=== PATIENT | female | born 1995 | race African-American/Black ===

== ENCOUNTER 2022-04-16 12:52 | Emergency (ER) | payer MEDICAID, SELFPAY ==
[2022-04-16 13:31] VITALS: BP 116/77; PULSE 88; RESP 18; TEMP 36.2; O2SAT 100; BMI 33.7
--- NOTE | 2022-04-16 14:42 | CRLHL7_ITS ---
For Patients: As a result of the Century Cures Act, medical imaging exams and procedure reports are released immediately into your electronic medical record. You may view this report before your referring provider. If you have questions, please contact your health care provider. INDICATION: Early cramping and bleeding. TECHNIQUE: Ultrasound OB pelvis transvaginal. Real-time zambrano-scale imaging of the pelvis was performed. COMPARISON: None. FINDINGS: There is a single intrauterine gestation. The embryo demonstrates a regular cardiac rate measuring 120 beats per minute. The embryo`s crown rump length measurement of 0.5 cm corresponds to a gestational age of 6 weeks 1 day with a sonographic due date of December 09, 2022. There is a normal appearing yolk sac. There are no gross abnormalities noted within the embryo at this early state of development. The placenta has not yet developed. There is no sign of perigestational hemorrhage. Right ovary was not visualized. Left ovary is normal with a corpus luteum. There are no suspicious fluid collections noted in the cul-de-sac. IMPRESSION: Single viable intrauterine with an estimated ultrasound age of 6 weeks 1 day. No abnormalities seen. Dictated by Prasad Chinchilla MD @ 04/16/2022 4:14:27 PM (Electronically Signed)
--- NOTE | 2022-04-16 14:42 | ED_ITS ---
HPI - General Adult General Chief complaint: Abdominal Pain Stated complaint: 7 Weeks ,cramping Time Seen by Provider: 04/16/22 14:37 History of Present Illness HPI narrative: This 26-year-old female comes in reporting that she is almost 8 weeks and has been having some cramping in her lower abdomen over the past couple weeks. She states that she has had a little bit of vaginal spotting also. She is wondering if the baby in the is doing okay. She states that she had a seizure yesterday and was taken by ambulance to be evaluated. She does have a history of seizure but it was during her previous and related to eclampsia. She arrives here with normal vital signs and normal blood pressure. Related Data Home Medications Medication Instructions Recorded Confirmed insulin NPH isoph U-100 human 100 unit subcut 04/16/22 unit/mL subcutaneous suspension (Humulin N NPH U-100 Insulin (isophane susp)) Allergies Allergy/AdvReac Type Severity Reaction Status Date / Time No Known Drug Allergies Allergy Verified 04/16/22 13:34 Review of Systems Status of ROS: Reports: 10 or more systems reviewed and unremarkable except as noted in History and below Narrative: Constitutional: No fevers, no weight gain or loss. Eyes: No discharge. No vision changes. HENT: No congestion, no sore throat, no ear pain. Cardiovascular: No chest pain, no palpitations. Respiratory: No shortness of breath, no wheezes, no cough. Gastrointestinal: No vomiting, no diarrhea. Crampy abdominal pain in the lower abdomen as described above. Genitourinary: No dysuria, no hematuria. Musculoskeletal: Normal range of motion. Skin: No rashes, no pruritis. Neurological: No dizziness, weakness, sensory change, speech change. Endo/Heme/Allergies: No bruising or bleeding. No polydipsia. Pysch: no suicidality, no anxiety, no insomnia. All other systems reviewed and are negative. [facility] Medical History (Updated 04/16/22 @ 16:07 by Enrico Valentine MD) Diabetes mellitus type 1 Surgical History (Updated 04/16/22 @ 15:04 by Allison Swanson RN) History of delivery Social History Smoking Status: Former smoker How often do you have a drink containing alcohol: never AUDIT-C Alcohol total score: 0 Non-prescribed substance use: denies use Exam Narrative: Exam Narrative: Constitutional: Well-developed, well-nourished, no acute distress. HEENT: Normocephalic, atraumatic. Neck: Normal range of motion. Nontender. Supple. Heart: Regular. No murmurs. Normal rate. Intact distal pulses. Lungs: Clear to auscultation. No chest discomfort. No wheezes, rhonchi, or rales. Abdomen: Normal bowel sounds. Mild tenderness in the lower abdomen. No rebound tenderness. Genitalia: Deferred. Back: No midline tenderness. Normal range of motion. Extremities: Normal range of motion. No injury. Skin: Intact. No rash. Warm. No erythema or pallor. Neurologic: No altered sensation. No weakness. Alert and oriented. Psychiatric: No suicidality. No anxiety or depression. No insomnia. Nursing notes and vitals signs are reviewed. Const: Vital Signs, click to edit/add: Vital Signs - 24 hr 04/16/22 13:31 Temperature 97.2 F L Pulse Rate [Right Pulse Oximeter] 88 Respiratory Rate 18 Blood Pressure [Ri ght Upper Arm] 116/77 Pulse Oximetry 100 Oxygen Delivery Me thod Room Air Course Vital Signs Vital signs: Initial Vital Signs Temperature 97.2 F L 04/16/22 13:31 Temperature Source Temporal Artery Scan 04/16/22 13:31 Pulse Rate 88 04/16/22 13:31 Respiratory Rate 18 04/16/22 13:31 Blood Pressure 116/77 04/16/22 13:31 Blood Pressure Mean 90 04/16/22 13:31 Blood Pressure Position Sitting 04/16/22 13:31 Pulse Oximetry 100 04/16/22 13:31 Oxygen Delivery Method 04/16/22 13:31 Vital Signs Temperature 97.2 F L 04/16/22 13:31 Pulse Rate 88 04/16/22 13:31 Respiratory Rate 18 04/16/22 13:31 Blood Pressure 116/77 04/16/22 13:31 Pulse Oximetry 100 04/16/22 13:31 Oxygen Delivery Method 04/16/22 13:31 Temperature 97.2 F L 04/16/22 13:31 Pulse Rate 88 04/16/22 13:31 Respiratory Rate 18 04/16/22 13:31 Blood Pressure 116/77 04/16/22 13:31 Pulse Oximetry 100 04/16/22 13:31 Oxygen Delivery Method 04/16/22 13:31 Medical Decision Making MDM Narrative Medical decision making narrative: This patient comes in concerned about her because of some abdominal pain in the lower abdomen. She states she is having some very light spotting but no obvious bleeding. I did discuss checking a quantitative beta hCG level and doing a pelvic ultrasound. She agreed to the ultrasound which returns with reassuring findings. There is a left corpus luteum that may be causing her pain. 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 There is a left corpus luteum that may be causing the patient's discomfort. Discharge Plan Discharge Clinical Impression: , Abdominal pain Condition: Stable Additional Instructions: Continue current plans. Follow up with primary physician or return if worsening. Prescriptions: No Action Humulin N NPH U-100 Insulin 100 unit/mL suspension SUBCUT Label Comments: INJECT 12 UNITS SUBCUTANEOUS BEFORE BEDTIME Follow Up/Referrals: Traci Rubi DO [Primary Care Provider] - Stand Alone Forms: [employer] Info Instructions
== END 2022-04-16 16:11 | disposition home or self-care (01) ==
PROVIDERS: Emergency Provider Emergency Medicine Emergency Medical Services; PCP Family Medicine
DX: O99.891 Other specified diseases and conditions complicating pregnancy (principal); R10.30 Lower abdominal pain, unspecified; Z3A.01 Less than 8 weeks gestation of pregnancy
CPT/HCPCS: 76817; 99283; 99284

== ENCOUNTER 2022-06-20 10:16 | Emergency (ER) | payer MEDICAID, SELFPAY ==
[2022-06-20 10:29] VITALS: BP 105/73; PULSE 98; RESP 20; TEMP 36.4; O2SAT 99; BMI 31.9
--- NOTE | 2022-06-20 10:58 | CRLHL7_ITS ---
For Patients: As a result of the Century Cures Act, medical imaging exams and procedure reports are released immediately into your electronic medical record. You may view this report before your referring provider. If you have questions, please contact your health care provider. INDICATION: Sixteen weeks with cramping. TECHNIQUE: Ultrasound OB pelvis transabdominal. Real-time zambrano-scale imaging of the pelvis was performed. COMPARISON: None. FINDINGS: There is a single intrauterine gestation. heart activity is present at 152 beats per minute. Fetus is in a transverse presentation. Placenta is posterior. No abnormality evident. IMPRESSION: Single viable intrauterine . No abnormalities seen. Dictated by Prasad Chinchilla MD @ 06/20/2022 1:29:30 PM (Electronically Signed)
--- NOTE | 2022-06-20 11:11 | ED.GENADULT ---
HPI - General Adult General Date Seen: 06/20/22 Chief complaint: Vaginal Bleeding Stated complaint: stuffy nose, cold,cramping, 16 weeks Time Seen by Provider: 06/20/22 10:39 Source: patient History of Present Illness HPI narrative: Patient is a 26-year-old here for evaluation of some cramping and spotting since last night as well as cold symptoms which started 2 days ago. She believes she has had a fever although she does not have a thermometer. She has had congestion, cough, runny nose. Wants to rule out COVID. She says she is vaccinated for COVID. She is here with her 9-month-old, does have a history of preeclampsia, uncontrolled diabetes, now on insulin. She is managed by high school academic coach at [facility]. She also has a history of low iron and was hoping to get that checked as well. She is unsure of her blood type. She denies trauma to her abdomen. She was not sure whether she was still having any spotting today. She requests an ultrasound to check the baby. Denies any urinary symptoms. Mild crampy abdominal pain. Denies history of cerclage. Second was born at 35 weeks. Related Data Home Medications Medication Instructions Recorded Confirmed insulin NPH isoph U-100 human 100 unit subcut 04/16/22 unit/mL subcutaneous suspension (Humulin N NPH U-100 Insulin (isophane susp)) Allergies Allergy/AdvReac Type Severity Reaction Status Date / Time No Known Drug Allergies Allergy Verified 06/20/22 10:29 Review of Systems Status of ROS: Reports: 10 or more systems reviewed and unremarkable except as noted in History and below [facility] Medical History Diabetes mellitus type 1 History of pre-eclampsia History of delivery Obesity Surgical History History of delivery Social History Smoking Status: Never smoker Do you use any of these nicotine containing products: None How often do you have a drink containing alcohol: never AUDIT-C Alcohol total score: 0 Non-prescribed substance use: denies use service: No Exam Narrative: Exam Narrative: Vital signs as noted above. In general, an alert, well-appearing patient. Head: Normocephalic, atraumatic. Eyes: Pupils are equal reactive. Extraocular movements are full. Conjunctivae are normal. ENT: Mucous membranes are moist. Throat is normal. Nares congested Neck: Supple without lymphadenopathy. No stridor. Heart: Regular rate and rhythm. No murmur or rub. Lungs: Clear bilaterally. No increased work of breathing, crackles or wheezes. Abdomen: Soft and nondistended. Mild diffuse tenderness, no rebound guarding or rigidity. Extremities: Well perfused. No edema. No calf tenderness. Pulses intact. Neurologic: Patient is alert and oriented to person and place. Speech is fluent. Face is symmetric. Moves all extremities equally. Affect: Normal. Skin: Warm and dry. Well perfused. Const: Vital Signs, click to edit/add: Vital Signs - 24 hr 06/20/22 10:29 Temperature 97.6 F Pulse Rate [Pulse Oximeter] 98 Respiratory Rate 20 Blood Pressure [Ri ght Upper Arm] 105/73 Pulse Oximetry 99 Oxygen Delivery Me thod Room Air Documenting provider has reviewed patient's vital signs: yes Course Course Hospital Course: Will go ahead and order an OB ultrasound. I reviewed her records and she is O-positive. I do not think additional blood work is necessary given that she is reporting mild spotting without significant hemorrhage. Vital signs are normal. Blood pressure is 105/73. Abdominal exam is benign aside from mild tenderness. Discussed with her that I think iron studies should be followed by her Ob. We will go ahead and get a COVID test. Lungs are clear, O2 sats are normal. I do not suspect pneumonia and do not think imaging is needed today. COVID test was negative, as was influenza and RSV. She had an ultrasound, note that she did ask the sonography for about gender of the baby. Ultrasound read by Radiology as showing well-appearing fetus, heart rate 152, no abnormalities. Patient asked to leave after the ultrasound and COVID test were resulted, she left prior to formal discharge instructions, or further discussion on my part with her. 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 Vital Signs Vital signs: Initial Vital Signs Temperature 97.6 F 06/20/22 10:29 Temperature Source Temporal Artery Scan 06/20/22 10:29 Pulse Rate 98 06/20/22 10:29 Pulse Rhythm 06/20/22 10:29 Respiratory Rate 20 06/20/22 10:29 Blood Pressure 105/73 06/20/22 10:29 Blood Pressure Mean 83 06/20/22 10:29 Blood Pressure Position Supine 06/20/22 10:29 Pulse Oximetry 99 06/20/22 10:29 Oxygen Delivery Method 06/20/22 10:29 Vital Signs Temperature 97.6 F 06/20/22 10:29 Pulse Rate 98 06/20/22 10:29 Respiratory Rate 20 06/20/22 10:29 Blood Pressure 105/73 06/20/22 10:29 Pulse Oximetry 99 06/20/22 10:29 Oxygen Delivery Method 06/20/22 10:29 Temperature 97.6 F 06/20/22 10:29 Pulse Rate 98 06/20/22 10:29 Respiratory Rate 20 06/20/22 10:29 Blood Pressure 105/73 06/20/22 10:29 Pulse Oximetry 99 06/20/22 10:29 Oxygen Delivery Method 06/20/22 10:29 Medical Decision Making Lab Data Labs: Lab Results 06/20/22 06/20/22 Range/Units 11:15 11: WBC 8.16 (4.50-11.00) K/uL RBC 4.54 (4.00-5.20) m/uL Hgb 10.2 L (12.0-16.0) gm/dL Hct 33.1 (33.0-51.0) % MCV 73 L (80-100) fL MCH 23 L (26-34) pg MCHC 31 L (32-36) gm/dL RDW Coeff of Liat 19.8 H (11.5-15.5) % Plt Count 300 (140-440) K/uL Neut % (Auto) 70.0 (42.0-72.0) % Lymph % (Auto) 21.6 (20-44) % Barren % (Auto) 7.6 (0.0-11.0) % Eos % (Auto) 0.1 (0.0-7.0) % Baso % (Auto) 0.2 (0.0-3.0) % Neut # (Auto) 5.71 (1.7-7.0) K/uL Lymph # (Auto) 1.76 (0.90-2.90) K/uL Barren # (Auto) 0.60 (0.00-0.90) K/UL Eos # (Auto) 0.01 (0.00-0.50) K/uL Baso # (Auto) 0.02 (0.00-0.30) K/uL Abs Immat Gran (auto) 0.04 (0.00-0.30) K/uL Imm/Tot Granulo (auto) 0.5 % Diff Slide Review Acceptable Review (Acceptable) SARS-CoV-2 (PCR) Negative SARS-CoV-2 (Negative) Influenza Type A (PCR) Negative PCR FLU A (Negative) Influenza Type B (PCR) Negative PCR FLU B (Negative) RSV (PCR) Negative PCR RSV (Negative) Discharge Plan Discharge Patient Disposition: Elopement
[2022-06-20 11:37] LABS: Basophils Absolute Auto 0.02 K/uL (0.00-0.30); Basophils Percent Auto 0.2 % (0.0-3.0); Eosinophils Absolute Auto 0.01 K/uL (0.00-0.50); Eosinophils Percent Auto 0.1 % (0.0-7.0); Hematocrit 33.1 % (33.0-51.0); Hemoglobin* 10.2 gm/dL (12.0-16.0); Immature Granulocytes Abs Auto 0.04 K/uL (0.00-0.30); Immature Granulocytes Pct Auto 0.5 %; Lymphocytes Absolute Auto 1.76 K/uL (0.90-2.90); Lymphocytes Percent Auto 21.6 % (20-44); Mean Corpuscular HGB Conc 31 gm/dL (32-36); Mean Corpuscular Hemoglobin 23 pg (26-34); Mean Corpuscular Volume 73 fL (80-100); Monocytes Percent Auto 7.6 % (0.0-11.0); Neutrophils Absolute Auto 5.71 K/uL (1.7-7.0); Platelet Count* 300 K/uL (140-440); RDW Coefficient of Variation % 19.8 % (11.5-15.5); Red Blood Count 4.54 m/uL (4.00-5.20); White Blood Count* 8.16 K/uL (4.50-11.00)
[2022-06-20 11:58] LABS: PCR FLU A Negative PCR FLU A (Negative); PCR FLU B Negative PCR FLU B (Negative); PCR RSV Negative PCR RSV (Negative)
[2022-06-20 11:58] LABS: Slide Review Reflex Yes
[2022-06-20 12:08] LABS: SARS PCR* Negative SARS-CoV-2 (Negative)
[2022-06-20 13:20] LABS: Slide Review Acceptable Review (Acceptable)
--- NOTE | 2022-06-20 13:45 | PC.NURSE ---
pt asking to leave, Dr Bolivar aware and pt may leave and follow up with OB, pt aware results within normal limits
== END 2022-06-20 13:45 | disposition left against medical advice (07) ==
PROVIDERS: Emergency Provider Emergency Medicine; PCP Family Medicine
DX: O26.859 Spotting complicating pregnancy, unspecified trimester (principal); R05.9 Cough, unspecified; R09.89 Other specified symptoms and signs involving the circulatory and respiratory systems
CPT/HCPCS: 36415; 76815; 85025; 87502; 87634; 87635; 99283; 99284

== ENCOUNTER 2022-07-12 20:13 | Emergency (ER) | payer MEDICAID, SELFPAY ==
--- OUTSIDE RECORDS SUMMARY | 2022-07-12 20:18 | XMS_ITS | Encounter Summary ---
:1995 Author Organization [facility] Address [address] [place] [address] Care Team Providers Name Role Phone Unavailable Primary Care Provider Unavailable Reason for Visit Reason Comments Diabetes Encounter Details Date Type Department Care Team Description 05/16/2021 Office Visit Antonella Pimentel Type 2 diabe racquel [facility] [place]rinivasan [place] [address] , [place] [address] [address] trimester [phone] [place] [address] Social History Tobacco Use Types Packs/Day Years Used Date Smoking Tobacco: Never Alcohol Use Standard Drinks/Week Comments Not Currently 0 (1 standard drink = 0.6 oz pure alcoho l) Financial Resource Strain Answer Date Recorded How hard is it for you to pay for the very basics like Not h monisha at all 04/11/2021 food, housing, medical care, and heating? Food Insecurity Answer Date Recorded Within the past 12 months, you worried that your food would Never true 04/11/2021 run out before you got money to buy more. Within the past 12 months, the food you bought just didn't N ever true 04/11/2021 last and you didn't have money to get more. Transportation Needs Answer Date Recorded In the past 12 months, has lack of transportation kept you f rom No 04/11/2021 medical appointments or from getting medications? In the past 12 months, has lack of transportation kept you f rom No 04/11/2021 meetings, work, or getting things needed for daily living? Sex Assigned at Date Recorded Not on file documented as of this encounter Patient Instructions Patient InstructionsSpAntonella quiroga RN, CDE - 05/16/2021 12:00 PM CDT Perez Rasmussen, It was a pleasure to meet with you today for your follow up visit: Please try to check your blood glucose four times a day: 1) When wake up (Target is between 60-94 mg/dl) 2) Check 1 hour from the start of each of your meals. (Target is less than 140 mg/dL) If check at 2 hours from the start of meals (Target is less than 120 mg/dL) Follow up Appt: 05/28/21 at 3:15 Calling the [facility] If you have any questions or concerns about your diabetes care plan, or simply want to speak to staff development educator, call [phone] from 8:00 am - 4:30 pm, Friday - Friday. Please consider calling if you have many blood sugars over 200 or if you have 2 blood sugars less than 70 in 1 week. You will have to leave a voice message with the answering machine, or you will be connected with an [facility] frontline staff member. At this time you can leave your message and make a request to speak with your staff development educator. If are having an urgent question related to diabetes and need assistance after hours, please call [phone]. PLEASE CALL [facility] WITH YOUR BLOOD GLUCOSE READINGS TODAY!! Thanks! ELVIS Berman, [facility] [place] documented in this encounter Progress Notes Antonella Teixeira RN, CDE - 05/16/2021 12:00 PM CDT Subjective: Visit #3 Type 2 and Valery Scott is seen for scheduled in-clinic visit for instruction on how to mix and administer two types of insulin (the Humulin N and Humulin R) using one syringe. Patient is accompanied by her spouse to this visit. Patient's spouse has been assisting her with giving her injections. Patient's spouse seems very clear about patient's insulin doses and how to administer the insulins, and that he had already did some reading on line as to how to mix two type os insulin using one syringe. Discussed with patient the importance of her having a clear understanding of her insulin doses and how to administer/mix two kinds of insulin using a single syringe, as her may not always be available to give her insulin injections. Patient did struggle with how to read the units on the syringe at start of this visit. Is concerned about seeing small dot of blood on her skin after insulin injections sometimes. Current Diabetes Medications: Insulin: Humulin N 22 units in the AM and 10 units in the PM Humulin R 10 units in the AM and 8 units if the PM Objective: Gestational age: 16 weeks, 3 days per patient Wt Readings from Last 3 Encounters: No data found for Wt Reviewed recent glucose results: Patient did not bring her glucose meter or any blood glucose data with her today. Assessment and Plan: Plan: Entirety of visit was spent with hands-on teaching. Initially worked with this patient on how to read the units on the 100 ml syringe, counting two units for each space marking on the syringe. This property underwriter had patient practice drawing up air for the multiple sample doses provided by this property underwriter for teaching purposes, which patient was eventually able to reach good understanding of. Demonstrated for patient and her spouse how to administer two different insulins (vials) using one syringe. Provided patient and her spouse with the written instructions on how to administer two kinds of insulin using a single syringe to use as a reference during visit today, and for them to take hometo use as needed as well. Patient's spouse was able to return demonstrate how to administer insulin from two vials, the Humulin N and Humulin R using a single syringe appropriately without any difficulty. However, did end up having to spend majority of remainder of visit with teaching patient how to administer two kinds of insulin from vials using a single syringe. Patient was able to grasp concepts of each step of this process, and eventually required only minimal prompting. Patient also did better with drawing up the appropriate doses once this property underwriter wrote down the morning and evening doses on separate sticky notes, including units of the Humulin R, units of Humulin N and the total number of unitswhen adding both of these doses together in one syringe. Encouraged patient's spouse to be there to supervise with administering her insulin at least initially until she is more comfortable with doing so. Encouraged patient's spouse to update notes including number of units for each type of insulin for the morning and evening with total units to be drawn up in the single syringe for morning and evening, each time after insulin doses are adjusted or changed. Reviewed with patient proper storage of insulin and how long each vial is effective for from date offirst use and the need to discard and begin use of a new vial if vial has been opened past the effective date. Reviewed insulin injection sites and reason for holding syringe in place for 10 seconds to allow forbetter absorption of the insulin. Recommended that for self injection that she use the abdomen or upper outer thighs. Discussed how can sometimes see a small amount of blood or bruising if accidentallyhit a capillary when administering the insulin. Was not able to make any adjustments in this patient's insulin doses today, as did not have any blood glucose data available. Reiterated to patient the importance of good management of glucose levels during , especially so early on in the . Reviewed with patient when call is warranted to [facility] or Endocrinology, if seeing 2 or more elevated readings in a 3 day period of time at the same time of day, and that insulin doses can be adjusted every couple of days as needed. Reviewed with patient the blood glucose targets and recommended that she check her blood glucose levels four times daily. INSTRUCTED THIS PATIENT TO CONTACT [facility] LATER TODAY BY PHONE WITH HER BLOOD GLUCOSE READINGS SO THAT COULD BE PROVIDED WITH ANY NECESSARY ADJUSTMENTS IN HER INSULIN DOSES. Instructed her to be sure to have her blood glucose data available at all of her appointments with Endo or [facility]. Goals: Date: Category: Goals: Progression: 04/11/2021 Monitoring Diabetes Check blood sugar QID Not On Track 04/20/2021 Taking Medication Take insulin as prescribed Not On Track Positive reinforcement for managing her blood glucose levels during this . At next visit, will need to review the visit 3 topics from the Gestation Diabetes BASICS curriculum. Glucose Monitoring plan: Patient will continue testing blood glucose levels four times per day as instructed Food Plan: Continue healthy eating for someone with Type 2 diabetes who is Patient will manage Type 2 diabetes during with insulin regimen noted above, diet, and exercise. Follow up: 05/28/21 Patient instructed to schedule follow up visits with Endocrinology as well. This visit was conducted as a: Office Visit Time spent with patient: 60 minutes Education content taught can be found in the diabetes education smartform documented in this encounter Plan of Treatment Not on filedocumented as of this encounter Visit Diagnoses Diagnosis Type 2 diabetes mellitus in , f irst trimester documented in this encounter
--- OUTSIDE RECORDS SUMMARY | 2022-07-12 20:18 | XMS_ITS | Encounter Summary ---
:1995 Author Organization [facility] Address [address] [place] [address] Care Team Providers Name Role Phone Unavailable Primary Care Provider Unavailable Reason for Visit Reason Comments Refill HUMULIN N 100 UNIT/ML inject ion [Pharmacy Med Name: HUMULIN N INSULIN ([id number])] Encounter Details Date Type Department Care Team Description 05/27/2022 Refill [facility] 3800 Jacoby Dawson PA-C Refill (HUMULIN N 100 Endocrinology [address] UNIT/ML injection [address] [Pharmacy Med Name: [address] [place] [address] ([id number])]) [id number] [phone] Social History Tobacco Use Types Packs/Day Years [...] on file documented as of this encounter Nursing Notes Mary Bruno, RN - 05/28/2022 9:33 AM CDT Requested Prescriptions Signed Prescriptions Disp Refills insulin isophane (HUMULIN N) 100 UNIT/ML injection 15 mL 4 Sig: TAKE 28 UNITS 20-30 MINUTES BEFORE BREAKFAST AND 18 UNITS 20-30 MINUTES BEFORE EVENING MEAL Authorizing Provider: JACOBY DASWON Ordering User: MARY BRUNO Filled per RN protocol. Interface, Out Surescripts Prov Query - 05/27/2022 5:52 PM CDT HUMULIN N 100 UNIT/ML injection [Pharmacy Med Name: HUMULIN N INSULIN ([id number])] Miscellaneous-Diabetes -> The requested medication was previously set to Historical. -> Unable to determine if sig has changed, review required. -> HBA1C was not found within the last 5 years. Last qualifying visit: 09/27/2021 (in P3800 ENDOCRINOLOGY) Next scheduled visit: None Last ordered by TREVOR FORD H: 08/28/2021 (272 days ago as Historical on 08/28/2021 by TREVOR FORD), Sig: take 28 units 20-30 minutes before breakfast and 22 units 20-30 minutes before evening meal. (changed) HBA1C: Not found [employer] Embedded Refills, Reference: [id number], 05/27/2022 5:52:40 PM CDT, Pool: ENDO PN REFILL ([id number]) documented in this encounter Plan of Treatment Not on filedocumented as of this encounter Visit Diagnoses Diagnosis Pre-existing type 2 diabetes mellitus du ring in third trimester documented in this encounter
--- OUTSIDE RECORDS SUMMARY | 2022-07-12 20:18 | XMS_ITS | Clinical Summary ---
:1995 [facility] Address [address], [place] [address] Care Team Providers Name Role Phone Unavailable Primary Care Provider Unavailable Source Comments You are receiving this document as you are listed as the primary care provider,follow-up provider, or the patient has been referred to you for consultation.This is in compliance with the Medicare and Medicaid EHR Incentive Program,which states Providers who transition their patient to another setting of careor provider of care or refers their patient to another provider of care shouldprovide summarycare record for each transition of care or referral. [facility] Allergies No known active allergies Medications Medication Sig Dispensed Refills Start Date End Date Status [employer] (BD Use as directed 1 Each 04/11/2021 Active [employer])Indication s: Pre-existing type 2 diabetes mellitus during in second trimester insulin Use new syringe for 100 Each 6 05/16/2021 Active syringe-needle U-100 each injection up to 1ml 31g x 2 injections daily. Indications: Type 2 diabetes mellitus in , first trimester ondansetron Take 4 mg by mouth 0 Active (ZOFRAN-ODT) 4 MG every 8 hours as disintegrating needed for Nausea. tablet ACCU-CHEK GUIDE test Use to test 4 times 100 Strip 11 Active stripIndications: a day. Pre-existing type 2 diabetes mellitus during in third trimester insulin regular Take 14 units 20-30 15 mL 6 08/28/2021 Active (HUMULIN R) 100 minutes before UNIT/ML breakfast and 19 injectionIndications units 20-30 minutes : Diabetes Mellitus before evening meal. Indications: Diabetes Mellitus insulin isophane TAKE 28 UNITS 20-30 15 mL 4 05/28/2022 Active (HUMULIN N) 100 MINUTES BEFORE UNIT/ML BREAKFAST AND 18 injectionIndications UNITS 20-30 MINUTES : Pre-existing type BEFORE EVENING MEAL 2 diabetes mellitus during in third trimester insulin Inject 1 Each 200 Each 0 06/07/2022 Activ e syringe-needle 31G X subcutaneously two 5/16 inch 1 mL (BD times a day. INSULIN SYRINGE U/F)Indications: Type 2 diabetes mellitus in , first trimester Active Problems Problem Noted Date Pre-existing type 2 diabetes mellitus during in third trimester 04/30/2021 Encounters Date Type Specialty Care Team Description 06/01/2022 Refill Endocrinology Kaylen Thompson, GLAZE WIPER, FLEET TECHNICIAN Re fill (BD INSULIN SYRINGE U/F [Pharmacy M ed Name: B-D #[id number] SYR/NDL 1 ML 31GX5/16 UF]) 05/27/2022 Refill Endocrinology Ciera Rush PA-C Refill (HUMULIN N 100 UNIT/ML injecti on [Pharmacy Med Name: HUMUL IN N INSULIN (HI-[id number])]) 05/25/2022 Refill Endocrinology Enrico Rocha MD Refi ll (BD INSULIN SYRINGE U/F [Pharmacy ed Name: B-D #8418 SYR/NDL 1 ML 31GX5/16 UF]) from Last 3 Months Social History Tobacco Use Types Packs/Day Years [...] Assigned at Date Recorded Not on file Last Filed Vital Signs Vital Sign Reading Time Taken Comments Blood Pressure - - Pulse - - Temperature - - Respiratory Rate - - Oxygen Saturation - - Inhaled Oxygen - - Concentration Weight 84.4 kg (186 lb) 05/28/2021 4:21 PM Per patient report on CDT 05/28/21 Height - - Body Mass Index - - Plan of Treatment Health Maintenance Due Date Last Done Comments Cervical Cancer Screening 1994 Due Diabetes: Creatinine 1994 Diabetes: Eye Exam 1994 Diabetes: Foot Exam 1994 Diabetes: HGBA1C 1994 Diabetes: Lipid Panel 1994 Diabetes: Urine 1994 Microalbumin Hep C Screening (Preventive 1994 Services) COVID-19 Vaccine (#1) 02/11/1995 Pneumococcal (1 - PCV) 2000 HIV Screening (Preventive 2010 Services) Adult Preventive Visit 2012 HepB (1) 2013 Influenza (#1) 2022 05/01/2020, 06/10/2019, 07/07/2018, Additional history exists DTaP/Tdap/Td (7 - Tdap) 11/29/2025 11/30/2015, 03/28/2006, 04/03/1999, Additional history exists Zoster/Shingles (1 of 2) 2044 MCV4 Aged Out 11/05/2006 No longer eligib le based on patient 's age to complete this topic HPV Vaccine Completed 06/29/2007, 06/29/2007, 11/05/2006, Additional history exists HepA Aged Out 07/07/2018, 08/27/2013 No longer eligible based on patient 's age to complete this topic Hib Aged Out No longer eligib le based on patient 's age to complete this topic IPV (Polio) Aged Out No longer eligib le based on patient 's age to complete this topic Insurance Payer Benefit Plan / Subscriber ID Effective Dates Phone Addre ss Type Group [facility] [id number] 2021-Present [phone] CLAIMS Medicaid [address] [place] [address] [address] (Home) [address] [place] [id number] Valery Scott Personal/Famil Self 1995 [address] (Home) [address] [facility] [address] [place] [id number]
--- OUTSIDE RECORDS SUMMARY | 2022-07-12 20:18 | XMS_ITS | Encounter Summary ---
:1995 Author Organization [facility] Address [address] [place] [address] Care Team Providers Name Role Phone Unavailable Primary Care Provider Unavailable Reason for Visit Reason Comments Refill BD INSULIN SYRINGE U/F [Phar yariel Med Name: B-D #[id number] SYR/NDL 1ML 31GX5/16 UF] Encounter Details Date Type Department Care Team Description 05/25/2022 Refill [facility] 3800 Enrico Rocha, Re fill (BD INSULIN Endocrinology MD SYRINGE U/F [Pharmacy [address] Med Name: [facility]D [id number] SYR/NDL 1ML 31GX5/16 [place] UF ]) [id number] [phone] (Wo rk) Social History Tobacco Use Types Packs/Day Years [...] documented as of this encounter Nursing Notes Stanislav Carroll, RN - 05/31/2022 2:46 PM CDT Renewed medication per medication refill standing order. Requested Prescriptions Refused Prescriptions Disp Refills insulin syringe-needle 31G X 5/16 inch 1 mL (BD INSULIN SYRINGE U/F) 100 Each Sig: USE NEW SYRINGE FOR EACH INJECTION, UP TO 2 DAILY Refused By: STANISLAV CARROLL Reason for Refusal: Patient Needs An Appointment [place]ian [place] - 05/31/2022 8:53 AM CDT LVM for pt to call back and schedule, unable to leave [facility]. Stanislav Carroll, RN - 05/31/2022 7:58 AM CDT Patient is overdue for appointment, please reach out to the patient to schedule follow up with MD Munoz and route back to pool servicer once complete. Renewed medication per medication refill standing order. Requested Prescriptions Pending Prescriptions Disp Refills insulin syringe-needle 31G X 5/16 inch 1 mL (BD INSULIN SYRINGE U/F) [Pharmacy Med Name: B-D #8418 SYR/NDL 1ML 31GX5/16 UF] 100 Each Sig: USE NEW SYRINGE FOR EACH INJECTION, UP TO 2 DAILY Interface, Out Surescripts Prov Query - 05/25/2022 9:52 AM CDT BD INSULIN SYRINGE U/F [Pharmacy Med Name: B-D #8418 SYR/NDL 1ML 31GX5/16 UF] -> The requested strength (31g x 5/16' 1 ml misc) has not been ordered recently. The patient is taking 31g x 15/64' 1 ml misc as of 05/16/2021. -> A qualifying visit was not found within the last 2 years. Last qualifying visit: None Next scheduled visit: None [employer] Embedded Refills, Reference: [id number], 05/25/2022 9:52:24 AM CDT, Pool: ANAI CASSIDY ([id number]) documented in this encounter Plan of Treatment Not on filedocumented as of this encounter Visit Diagnoses Diagnosis Type 2 diabetes mellitus in , f irst trimester documented in this encounter
--- OUTSIDE RECORDS SUMMARY | 2022-07-12 20:18 | XMS_ITS | Encounter Summary ---
:1995 Author [facility] Address [address], [place] [address] Care Team Providers Name Role Phone Unavailable Primary Care Provider Unavailable Reason for Visit Reason Comments APPOINTMENT REQUEST referral DM1 & Preg Encounter Details Date Type Department Care Team Description 04/02/2021 Telephone [facility] 3800 Nurse, [id number] End APPOINTMENT REQUEST Endocrinology [address] (referral DM1 & Preg) [address] [place] [place] [address] Social History Tobacco Use Types Packs/Day Years Used Date Smoking Tobacco: Never Assessed Financial Resource Strain Answer Date Recorded How [...] documented as of this encounter Nursing Notes Zayda Moreno - 04/02/2021 2:14 PM CDT Faxed referral rec'd from [facility] for DM1 and preg, records sent to [employer] doc documented in this encounter Plan of Treatment Not on filedocumented as of this encounter Visit Diagnoses Not on filedocumented in this encounter
--- OUTSIDE RECORDS SUMMARY | 2022-07-12 20:18 | XMS_ITS | Encounter Summary ---
:1995 Author Organization [facility] Address [address] [address] Care Team Providers Name Role Phone Unavailable Primary Care Provider Unavailable Reason for Visit Reason Comments Follow-up Encounter Details Date Type Department Care Team Description 04/09/2021 Telephone [facility] 3800 Alfredo Rocha MD Follow-up Endocrinology [address] [place] [address] [place] [address] [phone] Social History Tobacco Use Types Packs/Day Years [...] documented as of this encounter Nursing Notes Alvaro Rice RN - 04/09/2021 2:30 PM CDT Pt calls back and was advised of provider response below. Pt verbalizes understanding and agrees with plan. She was also given the [facility] scheduling number to call for scheduling if she would like. Juli Edwards RN - 04/09/2021 2:22 PM CDT Message left for the pt to call back. See below note. Enrico Rocha MD - 04/09/2021 2:14 PM CDT She has DM2 at 11 weeks gestation, treated with metformin but she will need insulin based on her recent glucose data. Referral sent for [facility] for DM2 during and at that appt, she will be taughtand prescribed insulins. She should continue metformin until she is seen there. No Rx has been sent yet. Juli Edwards RN - 04/09/2021 2:09 PM CDT Pt called the nurse line with questions about her 120 appt. She states she wanted to know where her medications were going to be sent. Looking at her list, no pharmacy on file. So I asked her what her preferred pharmacy was. She states [facility], so this was entered. She later states, Am Igoing to [place] to package pick up my medications And I questioned what she meant. Pt states she thought she was going to [place] to package pick up insulin and speak to a nurse. I tried to get more information from her, and she said forget it and hung up. Can you please advise on what she may need so we can help her. documented in this encounter Plan of Treatment Not on filedocumented as of this encounter Visit Diagnoses Not on filedocumented in this encounter
--- OUTSIDE RECORDS SUMMARY | 2022-07-12 20:18 | XMS_ITS | Encounter Summary ---
:1995 Author Organization [facility] Address [address], [place] [address] Care Team Providers Name Role Phone Unavailable Primary Care Provider Unavailable Reason for Visit Reason Comments Diabetes Encounter Details Date Type Department Care Team Description 05/28/2021 Telemedicine [place] Antonella Teixeira Type 2 diabe [facility] Diabet [place], [place] [address] , [place] [address] BLVD trimester (Primary [phone] [place], [place] Dx) [address] Social History Tobacco Use Types Packs/Day [...] on file documented as of this encounter Last Filed Vital Signs Vital Sign Reading Time Taken Comments Blood Pressure - - Pulse - - Temperature - - Respiratory Rate - - Oxygen Saturation - - Inhaled Oxygen - - Concentration Weight 84.4 kg (186 lb) 05/28/2021 4:21 PM Per patient report on CDT 05/28/21 Height - - Body Mass Index - - documented in this encounter Progress Notes Antonella Teixeira RN, CDE - 05/28/2021 3:15 PM CDT Subjective: Type 2 and Visit 4 Valery Scott is seen for scheduled video visit today. Patient reports that she is 18 weeks gestation today. Reports that has been giving most of her insulin injections. Reports that she has been feeling dizzy when sugars are low, between 90-100 mg/dL. Current Diabetes Medications: Insulin Humulin N 22 units in the AM and 10 units in the PM Humulin R 10 units in the AM and 8 units in the PM Patient is not administering insulin at correct times of day. The morning dose of insulin she is sometimes administering right before breakfast and sometimes after breakfast. The evening dose of insulin she is administering before bedtime at 8 PM. Patient did not have any questions regarding mixing two kinds of insulin in one syringe and declinedreview of same. Food Recall: Patient reports that her appetite is good, but that she does sometimes skip breakfast. Wakes up between 5:15 AM and 7:30 AM; Bedtime: 8 or 9 PM; Not working outside of home. Time Typical Meal or Snack First Meal 6:00 AM-8:00 AM Cheese stick and or orange OR Eggs and bread (1 slice of bread) OR 2 slices of bread with peanut butter and jelly OR Two 3-4 inch pancakes with syrup and peanut butter OR 2 cups of Honey Bunches of Oats or Special K cereal Snack 12:00 Noon Granola bar Second Meal 2:00 PM 1/2 cup of Whole grain rice with vegetables (carrots, broccoli, mashed potatoes,green beans) with grilled chicken Snack 5:00-6:00 PM Sun chips (1 bag) OR Couple of grapes and a jammie or cheese stick Third Meal 7:00 PM Steak or grilled chicken with vegetables (brussel sprouts, carrots, broccoli or green beans) and a 1/2 of a cup of mashed potatoes and cantaloupe Snack 8:30-9:00 PM Water or fruit or granola bar Beverages: Water, Body Armor (21 grams per 12 oz and bottle holds 28 ounces) vitamin/supplements: Yes. Nausea/vomiting: None. Physical Activity: Has been taking 15 minute walks 2-3 days a week in the afternoon between lunch and dinner. Objective: Gestational age: Per patient, is at 18 weeks gestation today. Wt Readings from Last 3 Encounters: No data found for Wt Reviewed recent glucose results: Patient reports that she has been checking at 1 hour from start of meals. Date Fasting 1 hour post-breakfast 1 hour post-lunch 1 hour post-evening meal 05/21 7:27 AM 160 2:16 PM 169 8:42 PM 188 05/22 5:18 AM 140 8:03 PM 119 05/23 7:07 AM 144 2:19 PM 110 5:59 PM 182 05/24 ---- 1:51 PM 124 5:50 PM 224 05/25 7:23 AM 171 11:40 AM 104 6:56 PM 100 05/26 ---- 9:47 AM 144 ---- 6:34 PM 165 05/27 --- ---- ----- ---- 05/28 7:19 AM 150 Assessment and Plan: Positive reinforcement for managing GDM. Majority of BG are elevated. Discussed with patient that she needs to be seen by Endocrinology. Patient asked that this gag writer send a message to schedulers with Endocrinology and ask them to call her to schedule these appointments, and did do so. This gag writer will contact patient by phone to review her blood glucose readings on 06/01/21, to see if any further insulin adjustment is needed. At that time, will also try to find time to review visit 3 topics from the Gestation Diabetes Basics book (including labor and delivery). Medication Plan: Insulin: Humulin N 22 units in the AM and 12 units in the PM Humulin R 10 units in the AM and 10 units in the PM Glucose Monitoring plan: Instructed patient to increase blood glucose checks to four times daily as directed, explaining thatthis data is needed in order to provide information needed to make appropriate adjustments in her insulin doses. Reviewed blood glucose targets with patient, pointing out that blood glucose readings between 90-100mg/dL are not low readings for someone with Type 2 diabetes and is . Reviewed with patient when she should contact IDC, if seeing 2 or more elevated glucose readings in 3 day period of time at the same time of day. Food Plan: Encouraged patient not to skip meals, have 3 meals a day, including some carbohydrate with each meal, but managing portion sizes based upon the plate method. Encouraged patient to have some protein with breakfast if is hungry. Encouraged patient to increase the amount of lean protein and non-starchy vegetables that she is having with each meal if finds herself feeling hungry because she is cutting back on the amount of carbohydrates. Encouraged patient to have small snacks in between meals to helpprevent hunger as well. Discussed with patient that she could: 1) Consider adding a slice of bread or toast to her breakfast with a cheese stick and an orange. 2) Consider having 2 slices of bread for breakfast with peanut butter alone. 3) Consider trying sugar free syrup vs regular syrup with the pancakes. 4) Consider having cereal as a snack later in the day rather than having for breakfast because cereal can tend to cause blood sugars to be quite high if having for breakfast in the morning when hormones and insulin resistance are the highest. If having cereal for a snack, could consider keeping portion size to 3/4 to 1 cup if having cereal for a snack. 5) Consider having rice or potatoes as the carbohydrate for the meal with grilled chicken and other non-starchy vegetables 6) Consider keeping serving size of cooked rice or cooked pasta to no more than 1 cup per meal. 7) Consider keeping serving size of mashed potatoes to one to ndw-xgl-z-half cups. 8) Consider having one kind of fruit for each snack, could have 2 clementines for a snack OR a handful of grapes for another snack. Beverage Recommendations: Recommend that she replace the Body Armor beverage with a sugar free beverage of some type, including Crystal Light, various sparkling yeung such as Paco, zero Gatorade orthe ICE sugar free beverages. This visit was conducted as a: Video Visit Location of clinician: clinic Location of patient: home Time spent on video in yogp-yq-oexq contact with patient, if applicable: 69 minutes Education content taught can be found in the diabetes education smartform documented in this encounter Plan of Treatment Not on filedocumented as of this encounter Visit Diagnoses Diagnosis Type 2 diabetes mellitus in , f irst trimester - Primary documented in this encounter
--- OUTSIDE RECORDS SUMMARY | 2022-07-12 20:18 | XMS_ITS | Encounter Summary ---
:1995 Author Organization [facility] Address [address] [place] [address] Care Team Providers Name Role Phone Unavailable Primary Care Provider Unavailable Reason for Visit Reason Comments Blood Glucose Readings Encounter Details Date Type Department Care Team Description 08/27/2021 Telephone [facility] 3800 Ciera Rush PA-C Blood Glucose Readings Endocrinology [address] [facility] [address] [facility] [place] [id number] [phone] Social History Tobacco Use Types Packs/Day Years [...] documented as of this encounter Nursing Notes Estela Scruggs RN - 08/27/2021 1:37 PM CST Pt reached and updated on below, reviewed insulin changes and need to test 4x daily, fasting and 1hrpost meals. Transferred to scheduling to set up apts, pt hung up during hold time, routing to frontline to reach out again. SE LABORER Ciera Rush PA-C - 08/27/2021 12:54 PM CST Fasting am glucose readings are elevated: 154 and 109-Increase NPH at dinner from 18 to 20 units No post-breakfast readings available for review 1-post lunch reading available for review-121 All post dinner readings are elevated: 206, 208 236 and 248-Increase Regular insulin before dinner from 16 to 18 units. New insulin regimen: NPH 28 units in am and 20 units with dinner Regular: 12 units in am and 18 units with dinner Patient is OVERDUE for f/u visit for T2DM management during . Please ask Valery to check herglucose four times daily: fasting am and one hour after meals. Please forward her to the frontline to schedule f/u visit with VOUCHER CLERK/PA within 1 week, and then every 2 weeks for the remainder of her . Thank you, Ciera Rush PA-C 08/27/2021, 12:59 PM SE LABORER Alvaro Rice RN - 08/27/2021 10:12 AM CST Pt calling in wanting to increase her insulin doses. Current diabetes regimen: NPH: 28 units before breakfast and 18 units before dinner Regular: 12 units before breakfast and 16 units before evening meal Reported Glucose Results: Date Fasting 1-2 hr post Pre-lunch 1-2 hr post Pre-dinner 1-2 hr post HS 08/20 206 08/21 08/22 08/23 08/24 208 216 08/25 109 121 236 08/26 183 (not sure if fasting) 248 08/27 154 (6am) 93 (1016am) SE LABORER documented in this encounter Plan of Treatment Not on filedocumented as of this encounter Visit Diagnoses Diagnosis Pre-existing type 2 diabetes mellitus du ring in third trimester documented in this encounter
--- OUTSIDE RECORDS SUMMARY | 2022-07-12 20:18 | XMS_ITS | Encounter Summary ---
:1995 Author [facility] Address [address], [place] [address] Care Team Providers Name Role Phone Unavailable Primary Care Provider Unavailable Reason for Visit Reason Comments Diabetes Encounter Details Date Type Department Care Team Description 06/01/2021 Telephone Antonella Day, Diabetes Diabet RN, [facility] [address] [address] [place] [address] Social History Tobacco Use Types [...] documented as of this encounter Nursing Notes Antonella Teixeira RN, CDE - 06/01/2021 5:54 PM CDT PHONE CALL: Calling patient to review her glucose data and to see about insulin adjustment needed. No answer so left message on patient's voicemail to call back as soon as possible with her glucose readings, expressing concern about good management for overall good health for her and baby during . documented in this encounter Plan of Treatment Not on filedocumented as of this encounter Visit Diagnoses Not on filedocumented in this encounter
--- OUTSIDE RECORDS SUMMARY | 2022-07-12 20:18 | XMS_ITS | Encounter Summary ---
:1995 Author Organization [facility] Address [address] [place] [address] Care Team Providers Name Role Phone Unavailable Primary Care Provider Unavailable Reason for Visit Reason Comments Refill BD INSULIN SYRINGE U/F [Phar yariel Med Name: B-D #[id number] SYR/NDL 1ML 31GX5/16 UF] Encounter Details Date Type Department Care Team Description 06/01/2022 Refill [facility] 3800 UngKaylen diego APRN R efill (BD INSULIN Endocrinology REVENUE MANAGER SYRINGE U/F [Pharmacy [address] Med Name: B[address]D [id number] SYR/NDL 1ML 31GX5/16 [place], [place] UF ]) [phone] (Wo rk) Social History Tobacco Use Types [...] documented as of this encounter Nursing Notes Elba Hernandez, RN - 06/07/2022 9:55 AM CDT Renewed medication per medication refill standing order. Requested Prescriptions Signed Prescriptions Disp Refills insulin syringe-needle 31G X 5/16 inch 1 mL (BD INSULIN SYRINGE U/F) 200 Each 0 Sig: Inject 1 Each subcutaneously two times a day. Authorizing Provider: KAYLEN BUITRAGO Ordering User: ELBA HERNANDEZ Interface, Out Surescripts Prov Query - 06/03/2022 3:13 PM CDT BD INSULIN SYRINGE U/F [Pharmacy Med Name: B-D #[id number] SYR/NDL 1ML 31GX5/16 UF] Diabetes Supplies 2 -> The requested strength (31g x 5/16' 1 ml misc) has not been ordered recently. The patient is taking 31g x 15/64' 1 ml misc as of 05/16/2021. -> Refill x 6 months (until due for an office visit) Last qualifying visit: 09/27/2021 (in P3800 ENDOCRINOLOGY) Next scheduled visit: None [facility] [employer] Embedded Refills, Reference: [id number], 06/03/2022 3:13:37 PM CDT, Pool: JUAN LUIS VALDERRAMA NURSING TEAM 3 ([id number]) documented in this encounter Plan of Treatment Not on filedocumented as of this encounter Visit Diagnoses Diagnosis Type 2 diabetes mellitus in , f irst trimester documented in this encounter
--- OUTSIDE RECORDS SUMMARY | 2022-07-12 20:18 | XMS_ITS | Encounter Summary ---
:1995 Author Organization [facility] Address [address], [place] [address] Care Team Providers Name Role Phone Unavailable Primary Care Provider Unavailable Reason for Visit Reason Comments Appt. Needed every 2 wks thru 36 weeks Encounter Details Date Type Department Care Team Description 07/20/2021 Telephone [facility] 3800 Ciera Rush PA-C Appt. Needed (every 2 Endocrinology [address] wks thru 36 weeks) [address] [place] [id number] [phone] Social History Tobacco Use Types Packs/Day Years [...] this encounter Nursing Notes Zayda Moreno - 07/20/2021 10:18 AM CST LVM no MC, to schedule VV every 2 weeks thru 36 weeks per Ciera OR ORACLE SOA DEVELOPER documented in this encounter Plan of Treatment Not on filedocumented as of this encounter Visit Diagnoses Not on filedocumented in this encounter
--- OUTSIDE RECORDS SUMMARY | 2022-07-12 20:18 | XMS_ITS | Encounter Summary ---
:1995 Author Organization [facility] Address [address], [place] [address] Care Team Providers Name Role Phone Unavailable Primary Care Provider Unavailable Reason for Visit Reason Comments Diabetes Encounter Details Date Type Department Care Team Description 09/27/2021 Telemedicine [facility] [address] Minnie Melgoza, ESTHER, NATALYA [address] [place] [address] Pre-existing type 2 Endocrinology Ciera Rush, PAKary [address] [place] [address] diabetes mellitus 3800 [facility] during pr egnancy in [facility]. third trimester [place], [place] (Primar y Dx) [address] Social History Tobacco Use Types [...] on file documented as of this encounter Progress Notes Juany Jorge - 09/27/2021 11:30 AM CST 09/25/21 Called lvm re: chart prep OLOGIST Remy Downey LPN - 09/27/2021 11:30 AM CST LVM 09/27/21 at 8:32am OLOGIST Ciera Rush PA-C - 09/27/2021 11:30 AM CST Images from the original note were not included. [facility]: [address] [place] [address] Clinic: [address] [place] [address] [phone], Nurse Line: [phone] Diabetes Progress Note September 27, 2021 Subjective: Chief complaint: Valery Scott is a 26 y.o. female here for management of type 2 diabetes in . Called x 1 at 11:36am. Call rolled immediately to voicemail. LMTCB Patient does not have access to The[employer]amer (TMG)t. Patient had emergent on 09/21/2021. She has been seeing Endocrinology at [facility] as recently as 09/14/2021. Closing encounter. If patient does call us back, then please confirm that she is seeing [facility] at [facility] and has follow-up visits scheduled for management. Ciera Rush PA-C Adult Endocrinology OLOGIST documented in this encounter Plan of Treatment Not on filedocumented as of this encounter Visit Diagnoses Diagnosis Pre-existing type 2 diabetes mellitus du ring in third trimester - Primary documented in this encounter
--- OUTSIDE RECORDS SUMMARY | 2022-07-12 20:18 | XMS_ITS | Encounter Summary ---
:1995 Author Organization [facility] Address [address] [place] [address] Care Team Providers Name Role Phone Unavailable Primary Care Provider Unavailable Reason for Visit Reason Onset Date Comments Follow-up ERRONEOUS ENTRY 09/13/2021 Encounter Details Date Type Department Care Team Description 09/13/2021 Telemedicine [facility] [address] Minnie Melgoza APRN, NATALYA 3800 [facility] [place] [address] Encounters for Endocrinology Geoffrey Khan PA-C [address] [place] [address] administrative purpose 3800 [facility] (Primary Dx) [facility] [place] [address] Social History Tobacco Use Types [...] as of this encounter Patient Instructions Patient InstructionsGeoffrey Khan PA-C - 09/13/2021 10:00 AM CST US SECURITY OFFICER documented in this encounter Progress Notes Geoffrey Khan PA-C - 09/13/2021 10:00 AM CST I invited patient to join [facility] visit, but after 8 minutes of waiting patient had still not connected to visit. Tried calling patient on cell and call went to . VM left. Patient had not connected toamwell visit by 10:14 am, and was called again through [employer]estir. Call went to immediately. left with number to reschedule. US SECURITY OFFICER Juli Edwards RN - 09/13/2021 10:00 AM CST Left message for chart prep. US SECURITY OFFICER Juli Edwards RN - 09/13/2021 10:00 AM CST 2nd message left for chart prep. US SECURITY OFFICER documented in this encounter Plan of Treatment Not on filedocumented as of this encounter Visit Diagnoses Diagnosis Encounters for administrative purpose - Primary Encounters for unspecified administrativ e purpose documented in this encounter
--- OUTSIDE RECORDS SUMMARY | 2022-07-12 20:18 | XMS_ITS | Encounter Summary ---
:1995 Author Organization [facility] Address [address] [address] Care Team Providers Name Role Phone Unavailable Primary Care Provider Unavailable Reason for Visit Reason Comments Diabetes Follow-up Encounter Details Date Type Department Care Team Description 07/18/2021 Telemedicine [facility] [address] Ciera Rush PA-C Pre-existing type 2 diabetes mellitus du ring in third trimester (Primary Dx); Endocrinology [address] Type 2 diabetes mellitus in , first trimester [address] [place] [id number] [phone] Social History Tobacco Use Types Packs/Day Years [...] documented as of this encounter Progress Notes Lata Dugan RN - 07/18/2021 2:30 PM CST Pre-Visit Planning for Phone/Video Visit: Diabetes Pre-visit planning completed. Reviewed the following: - Medications - Pharmacy - Allergies - Last eye exam - Tobacco/alcohol use - Pt would like text message for Kishor [phone] Current Diabetes Medications Humulin N Humulin R Reported Glucose Results: pt states readings have been high- 160's-high 200's. She does not have meter with her at time of call, when asked to please call numbers in prior to appt, she states she will give readings in appt. Date Fasting 1-2 hr post Pre-lunch 1-2 hr post Pre-dinner 1-2 hr post HS UCT MERCHANDISER Ciera Rush PA-C - 07/18/2021 2:30 PM CST Images from the original note were not included. [facility]: [address] [place] [address] Diabetes Progress Note July 18, 2021 Subjective: Chief complaint: Valery Scott is a 25 y.o. female here for management of type 2 diabetes in . Last visitwith endocrinology was on 06/05/[address] Rocha HPI: Valery is 26 weeks with baby boy. This will be her 2nd child. She [facility] OB [facility] in [place], [place]. Reports good movement. I want you to double up my dose. Sugars have been high. She is not able to locate her blood glucose meter or glucose data during our call, but is able to tell me the readings that she has been getting. She ran out of test strips yesterday, and so is not able to check her glucose today. She has beenhaving headaches during , treating with Tylenol. Last visit: 06/05/[address] Rocha Kitchen Runner: Aj Current Diabetes Medications: Humulin N 26 units in the AM and 16 units in the PM Humulin R 10 units in the AM and 14 units in the PM Blood glucose data: Valery does not have access to her fingerstick meter or log book during our call. However, she tells me that her fasting morning readings are elevated and close to 200, range 99-200. She is checking glucose one hour after meals. Post breakfast readings are mostly in the 160s, range: 100-200. Post lunchreadings: 160-180 and post dinner readings 160-190. The lowest reading that she has ever gotten was 80, and this occurred 2 weeks ago. She had a fasting am glucose reading that was 90, this was her lowest. She reports feeling dizzy when her glucose levels are low. She is taking her insulin before eating, but it may be one hour before or just before eating-variable when she is taking her insulin. Her continues to inject her insulin for her. During our call, she tells me that it feels like her glucose is low. She has not yet eaten her lunch. She does not have test strips to test her glucose. ROS: satisfied with diet. Nausea in am. No vomiting. 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 Partnered-boyfriend. [facility] congrete. 5 year boy at home. Objective: Physical Exam: There were no vitals taken for this visit., There is no height or weight on file to calculate BMI. General Appearance: alert, well appearing and in no apparent distress Further physical exam deferred for time spent in counseling. Labs: See below or in Epic. Assessment: 1. Pre-existing type 2 diabetes mellitus during in third trimester Medical decision making: Unfortunately, We have not seen Valery in endocrinology since 06/05/2021. She is having frequent elevations in glucose readings. She does not have access to her meter or log book during our call, but does report significant elevations post meals and fasting am. She needs more insulin, but since her glucose level reports are quite variable, I am going to be conservative with myinsulin increases. Reviewed that she should be taking her insulin 15-30 minutes before eating her morning and evening meal. We discussed the importance of good glucose control during and the need to have visits with endocrinology every 2 weeks during her . We also discussed the importance of notifying us between visits if she is noticing persistently elevated 2/3 days of glucose readings. Reviewed insulin adjustments below. Patient wrote down and read back changes to me during ourcall. Encouraged her to eat something if she feels that her glucose is low. She is unable to check her glucose level, since she ran out of test strips. I refilled her test strip prescription and asked Valery to let us know if she is NOT able to last picker test strips today, as it is very important that she continues to monitor her glucose regularly. If she is having trouble affording her insulin or testing supplies, she should call us so that we can talk about alternative insulin options. We discussed brieflyabout the possibility of buying insulin OTC if it is more affordable. Plan: Increase Humulin N to 28 units in the AM; and 18 units in the PM Increase Humulin R to 12 units in the AM; and 16 units in the PM AM: 28N + 12R PM: 18N + 16R ?? Reviewed blood glucose targets during : Fasting am <95 and one hour after meals <140 ?? Reviewed signs/symptoms of low glucose, encouraged close monitoring for lows ?? Valery is to call us next week to report her glucose readings; she should call us sooner if persistent high or low glucose readings are noted, despite adjusting her insulin. ?? Encouraged to call and schedule f/u visits every 2 weeks through 36 weeks gestation, appointment center phone number provided. This visit was conducted via video. Location of clinician home. Location of patient home. Billing based on: Complexity Ciera Rush PA-C Adult Endocrinology UCT MERCHANDISER documented in this encounter Plan of Treatment Not on filedocumented as of this encounter Visit Diagnoses Diagnosis Pre-existing type 2 diabetes mellitus du ring in third trimester - Primary Type 2 diabetes mellitus in , f irst trimester documented in this encounter
--- OUTSIDE RECORDS SUMMARY | 2022-07-12 20:18 | XMS_ITS | Encounter Summary ---
:1995 Author Organization [facility] Address [address] [address] Care Team Providers Name Role Phone Unavailable Primary Care Provider Unavailable Reason for Visit Reason Comments Post Visit Follow Up Encounter Details Date Type Department Care Team Description 07/18/2021 Telephone [facility] [address] Ciera Rush PA-C Post Visit Follow Up Endocrinology 3800 [facility] [address] [place] [phone] Social History Tobacco Use Types Packs/Day Years [...] as of this encounter Nursing Notes Elba Hernandez RN - 07/26/2021 9:33 AM CST Have attempted to contact pt regarding test strips and readings with no response from pt. Closing note for now and reopen as needed. GE MASTER COORDINATOR Alvaro [place] RN - 07/24/2021 4:01 PM CST Left VM requesting pt return call for provider message below. GE MASTER COORDINATOR Estela Scruggs RN - 07/19/2021 10:32 AM CST Left VM for patient to return call. Please relay information below. GE MASTER COORDINATOR Ciera Rush PA-C - 07/18/2021 9:54 PM CST Please call patient and inquire if she was able to molded goods spot picker her test strips at the pharmacy or not. If she has picked them up, then please ask her to report her glucose readings from her meter since our call yesterday. Thank you, Ciera Rush PA-C 07/18/2021, 9:55 PM GE MASTER COORDINATOR documented in this encounter Plan of Treatment Not on filedocumented as of this encounter Visit Diagnoses Not on filedocumented in this encounter
--- OUTSIDE RECORDS SUMMARY | 2022-07-12 20:18 | XMS_ITS | Encounter Summary ---
:1995 Author Organization [facility] Address [address] [place] [address] Care Team Providers Name Role Phone Unavailable Primary Care Provider Unavailable Reason for Visit Reason Comments Medication Questions Encounter Details Date Type Department Care Team Description 04/29/2021 Nurse Triage Careline Unknown, Medication Questions [address] Physician [place], [place] [address] [phone] [place] [address] Social History Tobacco Use Types Packs/Day Years [...] encounter Nursing Notes Alvaro [place] RN - 04/30/2021 10:15 AM CDT Pt called in to endocrinology clinic today and her recommended insulin dosing as below was reviewed with her again. She verbalizes understanding. She is not currently mixing her N and R insulin and wasadvised to reschedule her visit the the [facility] to learn how to do so if she would like to begin doing this. Pt agrees with plan. She does have visit with Dr. Rocha tomorrow. Stephanie Spain RN - 04/29/2021 2:30 PM CDT Patient/patient care technician request: Input needed Medication Specific Request: patient has a telephone meeting 04/30/21 at 2:00 with nurse per [employer]. Patient calling multiple times about insulin administration instructions. She lost her glucometer. Stated hasn't taken her insulin past few days because she wasn't at home. She verbalized feeling of confusion and overwhelmed. She said, can't I just take one shot everyday for my Please offer in person appointment and review insulin dosage, timing,mixing of insulin instructions,use, and rotation administration. She is and only wants to use her belly for injections. Clinician route to Flag for care team/Care team pool Boxing Inspector received a [employer] message that patient wanted customs entry writer to call her back.???Edward, my name is Stephanie, a nurse at the [facility] returning a call to [facility]. The time is 2:32 PM on 04/29/2021 . I will try calling you again within the next half hour, so please keep your phone close by. If youdon't feel comfortable or safe waiting for my return call, then please call us back on the original number you called us on. Again, I will try to reach you again within the next half hour. Thank you.?? Stephanie acharya RN CareLine 2:32 PM 04/29/2021 Verified patient identity: Yes Situation/Background (brief explanation of current symptoms/situation): She is wondering if she gives the R and N insulin at the same time? Plan:advised patient the R and N insulin should be given at the same time 20-30 miutes before breakfast and supper. Pt agrees with plan, no further questions. Advised patient/caller to call back CareLine if there are further questions or concerns . The CareLine is available 03/03. Stephanie Acharya RN CareLine 04/29/2021, 2:48 PM Stephanie Spain RN - 04/29/2021 2:08 PM CDT Reason for Disposition ??? Caller has medicine question only, adult not sick, AND triager answers question Protocols used: MEDICATION QUESTION [id number] Stephanie Spain RN - 04/29/2021 12:36 PM CDT Verified patient identity: Yes Situation/Background (brief explanation of current symptoms/situation): She is taking insulin and wasn't told how to take the second one. She didn't go to last appointment. She has type 2 diabetes, normally on metformin. Then found out she is and so taken off metformin and put on insulin. [employer] has been giving her the injections. She is confused about her insulin. Call dropped. Spoke with patient again. Her isn't with her currently. She didn't take any insulin as she is so confused.she wants to just take one a day throughout her . She forgot about 04/24 appointment where she was to learn about how to mix the insulins. Her has only been giving her the cloudy in sulin, 12 units at nighttime. She got prescribed another one and told to take in the morning and sheis so confused and she is frustrated and her isn't with her so she is not taking anything until she gets clear instructions. will be gone for a few days.she hasn't started the clear insulin. She was given a prescription from [facility] for the clear insulin. Doesn't know how much or what to do. She goes to someone in [facility] for her OB care, womens health, Dr. Chanel Granger, unsure of spelling. She states she is in the ED right now in [place] getting covid testing. Reviewed with patient pertinent medical history (as it related to the call): Yes . This is second , 14 weeks along. No concerns about .She just wants to know how much insulin to take? Reviewed with patient pertinent medications (as they relate to call): Yes past few days not taking any insulin. 12 unit of insulin cloudy one at night only. She has not started taking the clear insulin. Reviewed with patient pertinent allergies (as they relate to call): N/A ???Edward, my name is stephanie, a nurse at the [facility] returning a call to [facility]. The time is 1:09 PM on 04/29/2021 . I will try calling you again within the next half hour, so please keep your phone close by. I needto know if you have been checking your blood sugars and what your readings have been. Stephanie acharya RN CareLine 1:10 PM 04/29/2021 Per 04/20/21 telemedicine appointment: Plan: Medication: Start R and N insulin, taken BID at 0.5 u/kg/day per [facility] standing orders. Take 10 R and 18 N 20-30 minutes before breakfast & 6 R and 6 N 20-30 minutes before evening meal. This prescription was pended to Endo provider. ??Verified patient identity: Yes She hasn't been taking blood sugars. She misplaced her glucometer.reviewed with patients above insulin orders from 04/20/21 telemedicine appointment. She has telephone visit with diabetes center tomorrow at 2:00 she will keep and discuss another appointment to learn how to mix the insulins. Plan:home care. Patient wrote down insulin instructions. Advised her to write down R = clear insulinand is shorter acting and N = cloudy insulin and is longer acting. She verbalized understanding. Pt agrees with plan, no further questions. Advised patient/caller to call back CareLine if there are further questions or concerns . The CareLine is available 03/03. Stephanie Acharya RN CareLine 04/29/2021, 2:09 PM Lexii Chairez - 04/29/2021 10:16 AM CDT Verified patient identity using three identifiers: Yes Caller's relationship to patient: Self At which care system or clinic is the patient normally seen? [facility] ([facility]) Clinics Do you see a PN specialist for the reason you are calling? Yes [facility] Select Member: No Medication Questions/New Med Request/ Side Effects What medication are you calling about (name and/or type)? Insulin What is your question/concern? Pt is new to taking this medication - dosing was changed. Questions about how much to take of her medication. Plan: The current callback time to speak with a nurse is 3 hours. If your symptoms change or worsen,or if you have not received a call back in the stated timeframe, please call us back documented in this encounter Plan of Treatment Not on filedocumented as of this encounter Visit Diagnoses Not on filedocumented in this encounter
--- OUTSIDE RECORDS SUMMARY | 2022-07-12 20:18 | XMS_ITS | Encounter Summary ---
:1995 Author Organization [facility] Address [address] [place] [id number] Care Team Providers Name Role Phone Unavailable Primary Care Provider Unavailable Reason for Visit Reason Onset Date Comments Diabetes Follow-up No Show 06/05/2021 Encounter Details Date Type Department Care Team Description 06/05/[address] [facility] [address] En[address] Rocha for Endocrinology MD Stephani administrative purposes [address] [place] [address] [place] (Pr imary Dx) [facility] [place] [address] [id number] Social History Tobacco Use Types Packs/Day Years [...] as of this encounter Progress Notes Lata Dugan, RN - 06/05/2021 2:20 PM CDT lvm for pt to call back for chart prep. 06/04 @ 1:58pm Alvaro Rice RN - 06/05/2021 2:20 PM CDT Left VM on 06/05 @ 0808 requesting pt return call for chart prep. Enrico Rocha MD - 06/05/2021 2:20 PM CDT Patient was called 5-6x VV and PV times and was unable to be reached to complete their Video/phone visit. Tried again VV and PV after afternoon clinic session but no answer. Enrico Rocha MD - 06/05/2021 12:00 AM CDT NAME: VALERY APARICIO CSN: [id number] CLINIC NOTE DATE OF SERVICE: 06/05/2021 : 1995 SUBJECTIVE: Valery is a 25-year-old woman who we are following for insulin treated gestational diabetes. She is at 19 weeks gestation. EDC September 30, 2021. We had met with her last on May 01 and previously she had been seen on April 09 and in April by her PRECISION INSTRUMENT MAKER and diabetes education. She had an appointment today at 2:20 p.m. I tried calling multiple times (see documentation) and then I called her at the end of clinic session, but she did not answer. I had left her a voicemail. As I was working on paperwork and notes, she called my Duo and I picked up and it turned out it was Valery. She is in the car but her is driving. She admitted that she had forgotten about the appointment. She also had not responded to clinic prep calls from the nursing staff. Regarding her gestational diabetes, she is taking insulin Regular 10 units at breakfast and before supper, NPH 22 before breakfast and 12 before supper. She did not have her log with her, but she and her report that her fastings are 120 to 130. Her post breakfast can be 80 to 90 to 110, but she states that if it is on the lower end of that, it would be because she skipped breakfast. Sometimesshe feels not hungry. Post lunches can be 120 to 140, but more often can be 160 to even 200. Post suppers are quite variable, 120 to 130 up to 200 and sounds like the majority are in the 150 to 180 range. Physically she feels okay without complaint. General system review unremarkable. OBJECTIVE: Deferred, video visit. She is in the car as noted, not driving. I am in my office. ASSESSMENT: 1.Gestational diabetes, insulin treated, uncontrolled. 2.Adherence issues, ongoing with diet and insulin plan. PLAN: 1.I did reiterate the importance to control gestational diabetes during the , risks of untreated or uncontrolled. 2.Reiterated the importance of consistent carb intake to match up with her insulin dose. 3.Reviewed the risk of insulin dosed without food with the risk of low. She should continue to follow the carb plan, and in the morning if she does not feel that hungry, she could make it up by simply having juice or fruit or something similar that feels light. She does need higher insulin doses but because of the cloudiness in terms of her insulin dosing and her results, I did not go as aggressivelyas I might have. While taking the target amount of carb at breakfast, will keep her Regular at 10, NPH increased to 26. For supper, increase the Regular to 14 and the NPH to 16. Note that she refers tothem as clear and cloudy for future instruction reference. 4.Contact us within this week if her glucose stays high. Call if lows. 5.Recommended followup in the next couple weeks with our APC. ENRICO ROCHA MD GSD/AQS /[id number] documented in this encounter Plan of Treatment Not on filedocumented as of this encounter Visit Diagnoses Diagnosis Encounters for administrative purposes - Primary Encounters for unspecified administrativ e purpose documented in this encounter
--- OUTSIDE RECORDS SUMMARY | 2022-07-12 20:18 | XMS_ITS | Encounter Summary ---
:1995 Author Organization [facility] Address [address], [place] [address] Care Team Providers Name Role Phone Unavailable Primary Care Provider Unavailable Reason for Referral Consult/Transfer Care (Routine) - Closed Specialty Diagnoses / Procedures Referred By Contact Refer red To Contact Diagnoses Pre-existing type 2 diabetes mellitus during in second trimester Enrico Rocha MD [address] [place], [place] [address] Referral ID Status Reason Start Date Expiration Date Visits Requ ested Visits Authorized [id number] Closed 04/09/2021 07/09/2022 1 1 Scheduling Instructions Your provider has recommended an appoint ment with [facility]. You may call [phone] to schedule yo ur appointment. We suggest you call your health insurance company about your cove rage and benefits for this appointment. Reason for Visit Reason Comments CONSULT Encounter Details Date Type Department Care Team Description 04/09/2021 Telemedicine [facility] [address] Rocha Pr e-existing type 2 Endocrinology diabetes mellitus [address] second trimester [place], [place] (P [place]ary [place]x) [phone] (Wo rk) Social History Tobacco Use Types [...] documented as of this encounter Progress Notes Remy Downey LPN - 04/09/2021 1:20 PM CDT LVM 04/06/21at 3:38pm Lata Dugan RN - 04/09/2021 1:20 PM CDT 2nd voicemail left for pt to call back for chart prep 04/09/21 @ 9:08 am Enrico Rocha MD - 04/09/2021 12:00 AM CDT NAME: VALERY APARICIO CSN: [id number] CLINIC NOTE DATE OF SERVICE: 04/09/2021 : 1995 SUBJECTIVE: Valery is a 25-year-old woman who is scheduled as a video visit into my in-clinic day. She did not have a pre-visit prep. She is sent by [facility], in [place], [place]. Consultation is requested to evaluate diabetes, type 2, during . Valery indicates that she is at 11 weeks gestation. This is her 2nd . The 1st, she had a and recalled having preeclampsia but not gestational diabetes. She states that she has been treated through her primary physician at [facility] with metformin, dose decreased from 500 mg 2 tablets b.i.d. to 1 tablet b.i.d. because of some dizziness and loose stool. She has continued on the metformin to date as well as a vitamin. She states that she has been feeling okay during the . She is doing some glucose monitoring, fastings, 1 was 90, the rest 100 to 116; pre suppers are 120s to 150. She is not testing at other times. No polyuria, polydipsia, visual blurring. No chest pain, shortness of breath. No calf pain, edema. Otherwise, 10-point system review unremarkable. PAST MEDICAL HISTORY: Otherwise unremarkable. FAMILY FATHER: Diabetes in father and paternal aunt. Two aunts also have hypertension. SOCIAL: Her son is 5 years old. . No alcohol or tobacco. Does not work outside the home. MEDICATION LIST: As noted above. OBJECTIVE: Deferred, video visit. She looks well. LABS: Reviewed from [facility] via media tab from March 27, indicate an A1c of 7.1, creatinine 0.3, ALT 36, TSH 1.46. CBC normal with a hemoglobin of 12.5. ASSESSMENT: 1.Diabetes, type 2, during . 2., approximately 11 weeks. Currently is treated with metformin. PLAN: 1.Given her stated glucose levels, she will certainly need some insulin as her insulin resistance and insulin requirements will continue to rise through the . She is also struggling with tolerating the metformin with loose stools, maybe some dizziness (hard to attribute the latter, though, to metformin). 2.We will replace the metformin with insulin. Would recommend split mixed regular and NPH per IDC protocol. 3.Referral made to [facility], our education center. Macie will probablybe her best fit since she lives down in [place]. 4.Reviewed diabetes management during , target glucose, glucose monitoring, insulin use. Reviewed physiology of causing high glucose and the risk of hyperglycemia during the . 5.She will likely need a series of visits with our diabetes education staff. Will plan for a few weeks with our nurse practitioner or physician's assistant guest services manager. MD TIERNEY BARRON/LENIN /[id number] cc:[facility] [address] [place] [address] documented in this encounter Plan of Treatment Scheduled Referrals Name Type Priority Associated Diagnoses Order S lia Diabetes Education Referral Routine Pre-existing type 2 Or dered: 04/09/2021 Visit diabetes mellitus during in second trimester documented as of this encounter Visit Diagnoses Diagnosis Pre-existing type 2 diabetes mellitus du ring in second trimester - Primary documented in this encounter
--- OUTSIDE RECORDS SUMMARY | 2022-07-12 20:18 | XMS_ITS | Encounter Summary ---
:1995 Author Organization [email or web address] Address [address], [place] [address] Care Team Providers Name Role Phone Unavailable Primary Care Provider Unavailable Reason for Visit Reason Comments Appt. Needed 2 week f/u Encounter Details Date Type Department Care Team Description 05/09/2021 Telephone [facility] 3800 Nurse, [id number] End Appt. Needed (2 week Endocrinology [address] f/u) [address] [place] [address] [phone] Social History Tobacco Use Types Packs/Day Years [...] this encounter Nursing Notes Zayda Moreno - 05/09/2021 9:27 AM CDT LVM to schedule 2 week f/u DM2 and preg documented in this encounter Plan of Treatment Not on filedocumented as of this encounter Visit Diagnoses Not on filedocumented in this encounter
--- OUTSIDE RECORDS SUMMARY | 2022-07-12 20:18 | XMS_ITS | Encounter Summary ---
:1995 Author Organization [facility] Address [address], [place] [address] Care Team Providers Name Role Phone Unavailable Primary Care Provider Unavailable Reason for Referral Consult/Transfer Care (Routine) - New Request Specialty Diagnoses / Procedures Referred By Contact Refer red To Contact Diagnoses Pre-existing type 2 diabetes mellitus during in third trimester Sagar Kuhn PA-C [address] [place], [place] [address] Referral ID Status Reason Start Date Expiration Date Visits V isits Requested Authorized [id number] New Request 08/28/2021 11/27/2022 1 1 Scheduling Instructions Your provider has recommended an appoint ment with [facility]. You may call [phone] to schedule your appoi ntment. OL PHOTOGRAPHER Encounter Details Date Type Department Care Team Description 08/28/2021 Telemedicine [facility] [address], PRODUCT DEVELOPMENT COORDINATOR, REPTILE KEEPER [address] [place], [place] [id number] Pre-existing type 2 diabetes mellitus du ring in third trimester (Primary Dx); Endocrinology Sagar Kuhn PA-C [address] [place], [place] [phone] Obesity, unspecified obesity severity, u nspecified obesity type; [address] [place], [place] [id number] Social History Tobacco Use Types Packs/Day Years [...] as of this encounter Patient Instructions Patient InstructionsSagar Kuhn PA-C - 08/28/2021 9:30 AM CST 1. Insulin regimen: 20-30 minutes before breakfast take NPH 28 units with 14 units of regular insulin 20-30 minutes before supper take NPH 22 units with 19 units of regular insulin 2. While check blood sugars at least four times daily--fasting, premeals and 1 hour post meals. If you forget to check your blood sugar 1 hour post meal, check at the 2 hour time point. See blood sugar goals below. THIS IS VERY IMPORTANT THAT YOU COLLECT YOUR BLOOD SUGARS DATA FOR REVIEW AT YOUR UPCOMING APPOINTMENTS. Check Time Goal Blood Sugar in mg/dl Fasting and premeals 70-94 1 hour post meals 70-139 2 hours post meals 70-119 If you notice a pattern of blood sugars out of target range (2 or more at the same time of day) between appointments, please call our Endocrinology Nurse Line [phone]. 3. Prescription refills sent to your pharmacy. I sent an updated Rx for your regular insulin. If anyissues with picking up insulin, please call our clinic and a sample will be given. 4. Annual labs due today (A1C, TSH). complete at your convenience in next 1 week. Orders are in. 5. Eye exam is due. A consult was placed today. The ophthalmology scheduling staff will reach out oliver to make that appointment. If completing at an outside eye clinic please have records faxed to Endocrinology at [phone]. 6. Recommended follow up as noted below. Recommended Follow Up Endocrinology 09/13/2021 with [facility] Make appointment now Sagar Kuhn PA-C OL PHOTOGRAPHER documented in this encounter Progress Notes Sagar Kuhn PA-C - 08/28/2021 9:30 AM CST VIRTUAL DIABETES IN PROGRESS NOTE Provider's location at time of visit: Home Patient's location at time of visit: Home Virtual Visit: Via Phone. SUBJECTIVE: Chief Complaint: Valery Scott is a 26 y.o. female here for management of diabetes in . History of Present Illness Diabetes Type DM2 Date of Diagnosis Approximately a couple years per patient report. Diabetes Complications No known microvascular complications. Last Visit with Endocrinology 07/18/2021 with Ciera. Patient's Community Relations Advisor Aj GP Status Gestational Age 31 weeks [place] 10/28/2021. Plans for C section, does not know date at this time. Current Diabetes Regimen NPH insulin: 28 units before breakfast and 20 units before supper Regular: 12 units before breakfast and 18 units before supper Doses were increased yesterday afternoon by Ciera Rush. Prepregnancy Diabetes Regimen Metformin 500 mg b.i.d. Hypoglycemia Risk Low. Typically occurs 1 time per week, in the mornings when you wake up and afternoons sometimes around 3 pm. When she checks blood sugar it is in the 90s. Patient has glucagon prescribed. Planning to Breastfeed Yes. Feeling Baby Movement Yes. Issues with Nausea, Vomiting Intermittent in the mornings. Takes Zofran to help. No vomiting today. Diet Carb control. 2-3 meals per day. Eats 1-2 snacks per day. Drinks Powerade regular and Zero. Exercise None. Pertinent Past Medical History Per patient preeclampsia with 1st . Had a with 1stpregnancy. Obesity. Family History of Diabetes Other Pertinent Details Partnered. 1 child. Diagnosed with COVID-19 1 week ago. Has a cough, and runny nose. Feeling better now. Quarantining now. [facility] her [facility] care. Current weight per patient report: 198 lbs Asking if we can double up on insulin doses to help with spike in blood sugars. Partner gives her the insulin. at work right now. She says she was given the higher insulin doses per Ciera's recommendation yesterday evening and this morning. I called patient at scheduled time, and she did not answer. I left her a VM, then called her again at 9:45 and she answered. She forgot we had an appointment, and she said she was on the other line when I had called earlier. Last Eye Exam > 1 year ago. Last Foot Exam Not addressed. Data Review: Continuous glucose monitoring data for the past 2 weeks was reviewed. See nursing note for complete CGM report. Date Fasting 1-2 hr post B 1-2 hr post L 1-2 hr post D HS 08/20 ? 206 ?? 08/21 ? 08/22 ? 08/23 ? 08/24 ? 208 216 08/25 109 ?? 121 236 ?? /16 ?? 183 (not sure if fasting) ?? 248 ?? 08/27 154 (6am) ?? 93 (1016am) -- 204 196 146 08/28 105 ??213 ? OBJECTIVE: Physical Exam: General: Pleasant. No acute distress. Distracted at times. Overwhelmed. Labs: See above and below for recent lab results. Last A1c: 7.1% on 03/28/2021 care everywhere Last creatinine = 0.54 (L) on 12/19/2020 care everywhere GFR: > 60 (WN L) on 12/19/2020 care everywhere UMAR: 25.9 (WNL) on 10/09/2020 care everywhere TSH: 1.65 (WNL) on 09/25/2020 care everywhere Last LDL: 78 (WNL) on 05/01/2020 care everywhere Labs were reviewed and any labs due were placed. ASSESSMENT: Valery Scott is a 26 y.o. female : 1. Pre-existing type 2 diabetes mellitus during in third trimester 2. Obesity, unspecified obesity severity, unspecified obesity type (HRC) 3. Patient non adherence Medical Decision Making Achievements Barriers Currently . Chronic poor control. Difficulty checking and keeping track of blood sugars. Sparse follow-up. Today's Intended Goals Insulin Adjustment: Improve fasting blood sugars, improve spikes in blood sugar with breakfast and dinner. Other: Exercise. Items to Avoid Or Be Cautious About In Future PLAN: 1. Recommended plan for your diabetes: a. 20-30 MIN BEFORE BREAKFAST TAKE NPH 28 UNITS WITH 14 UNITS OF REGULAR INSULIN b. 20-30 MINUTES BEFORE SUPPER TAKE NPH 22 UNITS WITH 19 UNITS OF REGULAR INSULIN c. We discussed the importance of checking blood sugars, and calling us with any patterns out of target range. d. While check blood sugars at least four times daily--fasting, premeals and 1 hour post meals. If you forget to check your blood sugar 1 hour post meal, check at the 2 hour time point. See blood sugar goals below. Check Time Goal Blood Sugar in mg/dl Fasting and premeals 70-94 1 hour post meals 70-139 2 hours post meals 70-119 e. If you notice a pattern of blood sugars out of target range (2 or more at the same time of day) between appointments, please call our Endocrinology Nurse Line [phone]. 2. Continue all other medications unchanged. 3. Prescription refills sent to your pharmacy. Patient running low on Regular insulin. Updated Rx sent to pharmacy. If any issues with picking up insulin, please call our clinic and a sample will be given. 4. Annual labs due today (A1C, TSH). complete at your convenience in next 1 week. Orders are in. 5. Eye exam is due. A consult was placed today. The ophthalmology scheduling staff will reach out [facility] to make that appointment. If completing at an outside eye clinic please have records faxed to Endocrinology at [phone]. 6. Recommended follow up as noted below. Recommended Follow Up Endocrinology 09/13/2021 with [facility] Make appointment now 7. Sent patient mailing of info per her request. Reviewed insulin doses and patient was able to teach back appropriately. All patient questions were answered. Patient did not have further l at this time. CAARA LEINTZ, PA-C __ BILLING: Total Time: 45 min Billing primarily based on time which includes time spent in chart prep that day, time spent with the patient, placing orders, and note writing. In addition, low to moderate medical decision required for this session. OL PHOTOGRAPHER documented in this encounter Plan of Treatment Scheduled Referrals Name Type Priority Associated Diagnoses Order S chedule Ophthalmology Referral Routine Pre-existing type 2 Ordered : 08/28/2021 Consult-Adult/Peds diabetes mellitus during in third trimester documented as of this encounter Visit Diagnoses Diagnosis Pre-existing type 2 diabetes mellitus du ring in third trimester - Primary Obesity, unspecified obesity severity, u nspecified obesity type (HRC) Patient non adherence Personal history of noncompliance with m edical treatment, presenting hazards to health documented in this encounter
--- OUTSIDE RECORDS SUMMARY | 2022-07-12 20:18 | XMS_ITS | Encounter Summary ---
:1995 Author Organization [facility] Address [address] [place] [address] Care Team Providers Name Role Phone Unavailable Primary Care Provider Unavailable Reason for Visit Reason Comments Diabetes Consult/Transfer Care (Routine) - Closed Specialty Diagnoses / Procedures Referred By Contact Refer red To Contact Diagnoses Pre-existing type 2 diabetes mellitus during in second trimester Enrico Rocha MD [address] [place], [place] [address] Referral ID Status Reason Start Date Expiration Date Visits Requ ested Visits Authorized [id number] Closed 04/09/2021 07/09/2022 1 1 Encounter Details Date Type Department Care Team Description 04/11/2021 Telemedicine [facility] Cris Gardner, Sharath e-existing type 2 Diabetes RDN, LD, CDCES diabetes mellitus [address] [facility] . [address] [place] [address] [address] second trimester [phone] [place] [address] Social History Tobacco Use Types [...] as of this encounter Patient Instructions Patient InstructionsCris Gardner, DAVIDN, LD, CDCES - 04/11/2021 1:30 PM CDT Perez Rasmussen, It was a pleasure meeting you today. Attached is the blood sugar log and below is a summary of the topics we discussed. Thank you, Cris Gardner When to call the diabetes center or Endocrinology to report blood sugars: Call during clinic hours if 2 or more unexplained high glucose tests at the same time of day within a 3 day period. (example: 2 elevated fasting levels in a 3 day period) [facility] - Nurse/Dietitian Friday - Friday 8:00 - 4:30 pm [facility] - Medical information - Appointments - EMERGENCY after hours (ask for the Diabetes Doctor) Checking Blood Sugar Check blood sugar four times per day: Before morning meal (fasting): Blood sugar target is 60 to 94 mg/dL 1 hour after the start of each meal. Blood sugar target is less than 140 mg/dL (You can test 2 hours after start of the meal if you miss the 1 hour jono. Blood sugar target is less than 120 mg/dL.) Blood glucose checking tips ??? Store strips at room temperature ??? Keep strips in original packaging, keep lid on container closed ??? Never keep your strips in your vehicle ??? Do not use strips after the expiration date on the package ??? Do not throw used lancets into the trash. Put them into sharps container or thick plastic bottle. ??? Prior to use, wash your hands with soap and warm water, or use and alcohol wipe (avoid gel, foamor liquid hand sanitizers). Dry your hands well. ??? Shake your arm downward to get more blood into your fingertips. ??? Poke the side of your fingertip, using the lancing device. Use a different finger each time you check. ??? Gently rub or massage your finger from the palm of your hand to the fingertip until a small dropof blood appears. Have your blood sugar records available for all [facility], Adult Endocrinology and OB appointments. NPH (cloudy) insulin Instructions: Please find attached the handout that reviews the steps on how to measure and inject insulin using avial and syringe. Here is the website to a video that also reviews the steps: https://[email or web address]ube.com/watch?v=[email or web address] Dose If your fasting blood sugar remains above 94 mg/dl over the next two days ( and Friday morning), steel pickler and start NPH insulin Friday (04/13) evening. Inject 12 units subcutaneously before bed-time. Syringes I have also attached a handout that reviews how to safely dispose of sharps. Never reuse a syringe. After you have used the syringe it needs to be placed into a sharps container. Storage and Expiration The insulin vial you are currently using can be kept at room temperature. After the first use the vial is only good for a certain amount of days. The expiration date varies depending on the brand. Humulin N = good for 31 days Novolin N/Relion N= good for 42 days Cost If your co-pay for insulin is more than $25.00 per bottle, consider obtaining Relion brand insulin available at [facility] only. Please ask the pharmacist at [facility] if it's cheaper to obtain the insulin through the insurance company or to pay downey. Low Blood Sugars Hypoglycemia For women with gestational diabetes, a glucose level less than 60 mg/dL is called hypoglycemia (low blood glucose). Causes of low glucose Some of the causes of low glucose include: ?? Eating or drinking less carbohydrate than usual ?? Skipping or delaying a meal or snack ?? Being more physically active than usual ?? Taking too much insulin Symptoms of low glucose If your glucose is low, you may feel: ?? Weak, shaky, or lightheaded ?? Sweaty or clammy ?? Irritable ?? Confused ?? Hungry Good choices for treating lows Each of these choices has 15 grams of carbohydrate (1 carb choice): ? cup fruit juice or regular (not diet) soft drink ?? 3 or 4 glucose tablets ?? 3 or 4 hard candies ?? 1 granola bar Rule of 15 to treat lows Follow the ???rule of 15?? to treat low glucose: 1. When you feel symptoms of a low, test your glucose. 2. If your glucose level is low, eat or drink 15 grams of carbohydrate. 3. Wait 15 minutes and test again. 4. If your glucose level is still low, eat or drink another 15 grams of carbohydrate. 5. Wait 15 minutes and test again. If necessary, eat or drink another 15 grams of carbohydrate. 6. If your glucose level remains low after three treatments, call your healthcare provider or 911. Phone Numbers [facility]: [phone] (Diabetes Educators are available Mon-Fri 8:00-4:30pm) Adult Endocrinology: [phone] Emergency after hours (ask for Diabetes Doctor): [phone] Please call the [facility] [place] ([phone]) if you have any questions or concerns or notice a pattern of elevated blood sugars or have a low blood sugar. documented in this encounter Progress Notes Cris Gardner RDN, DREW, JANE - 04/11/2021 1:30 PM CDT Subjective: Visit: initial GDM Valery attends visit unaccompanied. What is the most important concern you want to discuss today? How do I manage my blood sugars duringpregnancy? If I start insulin, do I stop Metformin? How are you feeling about having gestational diabetes? Accepting Medications: Metformin ER: 500-0-500-0 Concerns: Not washing hands prior to checking FBS Eating 1-2 meals + snacks Time Typical Meal or Snack Beverages First Meal Skips most days due to low appetite OR will have fruit or cereal Water, 1-2 cups of strawberry milk Snack Second Meal 3-4pm Usually first meal of the day- will have pizza OR burrito OR tacos + 1-2 fruit Water Snack Third Meal May not eat anything or have 1-2C strawberry or regular milk Snack Reported nutrition changes: eating more fruits and vegetables, hamburger without bun Vitamin: yes, daily Nausea/Vomiting: will vomit if eating larger meal in the morning Food Aversions: egg Beverages: water, 2-4 cups of strawberry or regular, occasionally will have gatorade zero Food preparation: self Dining Out: did not ask Food Insecurity: N/A Within the past 12 months, we worried that our food would run out before we had money to buy more. No Within the past 12 months, the food we bought just didn't last and we didn't have money to get more.No Current physical activity includes: some walking, nothing routine and depends on how she's feeling Objective: Gestational Age: approximately 11 weeks This is an individual appointment. No group available within needed timeframe. Reviewed recent glucose results: Date Pre Morning Meal Post Morning Meal Post Midday Meal Post Evening Meal 04/11 103 04/08 133 150-ate large meal consisting of chips and fruit 168/ then 144 before bed 04/07 215 04/06 116 04/05 90 04/04 106 04/03 159 100 Lab results related to diabetes have been reviewed. Assessment and Plan: Resources provided: Gestational Diabetes BASICS book, Eating for Better Health,GDM record book Reviewed Session #1 material from Gestational BASICS book. Patient has Accu-Chek Guide meter and enough testing supplies. Reviewed drawing and injection 1 type of insulin using vial and syringe/measuring and injecting insulin using an insulin pen. Reviewed insulin storage and expiration. Reviewed recognizing and treating hypoglycemia. Patient will need a review on mixing R and NPH insulin at 1 week follow-up. Valery relays that she has not been washing her hands with soap and water prior to checking her bloodsugars which would explain her FBS ranging from 90-200. Going forward she will wash hands with soap and water or use an alcohol wipe. Plan: Medication: - If fasting glucose remains elevated these next 2 days, steel pickler and start NPH 12 units at bed-time on Friday evening. - Relayed information per Endo's note to stop Metformin once initiating insulin. Glucose Monitoring: -Rx for glucometer and supplies sent to patient's pharmacy. -Encouraged patient to check blood glucose QID. - Wash hands with soap and water or use alcohol wipe prior to checking blood sugars. -Encouraged patient to call if note pattern of elevated glucoses. -Encouraged patient to bring meter and record book to follow-up visits. Food/Exercise/Habit Change: -Encouraged physical activity, as tolerated. Encouraged aiming for at least 30 minutes most days of the week. -Encouraged 3 meals containing carbohydrates, snacks as needed. -Encouraged avoiding sugar-sweetened beverages. -Return for follow up on 04/20/2021. This visit was conducted as a: Video Visit Location of clinician: clinic Location of patient: home Time spent on video in [id number] contact with patient, if applicable: 70 Education content taught can be found in the diabetes education smartform documented in this encounter Plan of Treatment Not on filedocumented as of this encounter Visit Diagnoses Diagnosis Pre-existing type 2 diabetes mellitus du ring in second trimester documented in this encounter
--- OUTSIDE RECORDS SUMMARY | 2022-07-12 20:18 | XMS_ITS | Encounter Summary ---
:1995 [facility] Address [address], [place] [address] Care Team Providers Name Role Phone Unavailable Primary Care Provider Unavailable Reason for Visit Reason Comments Follow-up Encounter Details Date Type Department Care Team Description 07/16/[address] [facility] [address] Alfredo Rocha MD Follow-up Endocrinology [address] [place] [address] [place] [address] [phone] Social History Tobacco Use Types Packs/Day Years [...] encounter Nursing Notes Alvaro Rice RN - 07/16/2021 3:45 PM CST Pt leaves message on nurse line requesting a return call. Called pt back and she states her sugars have been running higher and she is wondering when her nextfollow-up appt is. Advised pt she is not currently scheduled for follow-up appt. She was transferredto frontline to schedule follow-up and is now scheduled to see RONNELL Paul on 07/18/21. However, p atient hung before actual blood sugars could be obtained for the visit. R ROUTE [employer]RIER documented in this encounter Plan of Treatment Not on filedocumented as of this encounter Visit Diagnoses Not on filedocumented in this encounter
--- OUTSIDE RECORDS SUMMARY | 2022-07-12 20:18 | XMS_ITS | Encounter Summary ---
:1995 Author Organization [facility] Address [address], [place] [address] Care Team Providers Name Role Phone Unavailable Primary Care Provider Unavailable Reason for Visit Reason Comments Follow-up Encounter Details Date Type Department Care Team Description 05/21/2021 Telephone [facility] [address] Alfredo Rocha MD Follow-up Endocrinology [address] [place] [address] [place] [address] [phone] Social History Tobacco Use Types Packs/Day Years [...] documented as of this encounter Nursing Notes Juli Edwards RN - 05/21/2021 10:28 AM CDT Pt states she dropped her NPH insulin vial and it broke. She states the pharmacy will not allow her to fill her prescription, and and she does not know when she can fill next. She will not pay out of pocket to fill it, and says if she does the pharmacy will cancel her prescription. Because she broke her NPH vial, she stopped taking her other insulin, so she has not had any insulin in 4 days. She states she does not feel good. She wants this office to help her get her insulin today. Per the pharmacy pt has state insurance, so if she pays out of pocket she would lose her insurance. She would be able to fill her NPH insulin in 3 days on 05/24/21. She could call her insurance to try to obtain a 1 time override but she will need to do this herself. I did call her and let her know this. Pt will do this and call us back with any additional questions/concerns. documented in this encounter Plan of Treatment Not on filedocumented as of this encounter Visit Diagnoses Not on filedocumented in this encounter"
--- OUTSIDE RECORDS SUMMARY | 2022-07-12 20:18 | XMS_ITS | Clinical Summary ---
:1995 Author Organization [employer] Address [address] [address] Phone Care Team Providers Name Role Phone Unavailable Primary Care Provider Unavailable Allergies No known active allergies Medications No known medications Encounters Date Type Specialty Care Team Description 04/15/2022 Ancillary Radiology Procedure 04/15/2022 Emergency Emergency Medicine Hailey Ziegler MD (Primary Dx) from Last 3 Months Social History Tobacco Use Types Packs/Day Years Used Date Smoking Tobacco: Never Assessed Sex Assigned at Date Recorded Not on file Job Start Date Occupation Industry Not on file Not on file Not on file Last Filed Vital Signs Vital Sign Reading Time Taken Comments Blood Pressure 121/73 04/15/2022 8:00 PM CDT Pulse 84 04/15/2022 8:15 PM CDT Temperature - - Respiratory Rate 13 04/15/2022 8:15 PM CDT Oxygen Saturation 100% 04/15/2022 7:31 PM CDT Inhaled Oxygen Concentration - - Weight 86.9 kg (191 lb 9.3 oz) 04/15/2022 7:24 PM CDT Height - - Body Mass Index - - Plan of Treatment Health Maintenance Due Date Last Done Comments Cervical Cancer Screening 1994 Last pap w/ HPV Testing 1994 Last pap w/o HPV Testing 1994 COVID-19 Vaccine (#1) 02/11/1995 PERTUSSIS (Standing Order) 2013 TETANUS (Standing Order) 2013 Influenza Vaccine Seasonal 04/11/2022 (Standing Order) (#1) Pneumococcal/PCV Vaccine: Aged Out No pepe solitario eligible based on Pediatrics (0-5 yrs) and At-Risk patient's age to complete this Patients (6-64 yrs) (Standing to pic Order) Procedures Procedure Name Priority Date/Time Associated Diagnosis Comme nts CT HEAD WO IV STAT 04/15/2022 9:40 Pseudoseizure Results fo r this CONTRAST PM CDT procedure are i n the results section. URINE MICROSCOPIC STAT 04/15/2022 7:58 Results for this EXAMINATION PM CDT procedure are i n the results section. URINALYSIS, REFLEX TO STAT 04/15/2022 7:58 Res ults for this CULTURE PM CDT procedure are i n the results section. MAGNESIUM STAT 04/15/2022 7:52 Results for this PM CDT procedure are i n the results section. COMPREHENSIVE STAT 04/15/2022 7:52 Results for this METABOLIC PANEL PM CDT procedure ar e in the results section. HEMOGRAM/DIFF STAT 04/15/2022 7:52 Results for this PM CDT procedure are i n the results section. HOLD SERUM TUBE STAT 04/15/2022 7:52 PM CDT HOLD NA CITRATE STAT 04/15/2022 7:52 PM CDT HOLD EDTA STAT 04/15/2022 7:52 PM CDT HOLD LI HEPARIN STAT 04/15/2022 7:52 PM CDT from Last [address] HEAD WO IV CONTRAST (04/15/2022 9:40 PM CDT) Anatomical Region Laterality Modality Head Computed Tomography Specimen (Source) Anatomical Collection Method Collection Time Re ceived Time Location / / Volume Laterality 04/15/2022 9:40 PM CDT Narrative 04/15/2022 9:47 PM CDT This document is currently in Final Status Exam CT HEAD WO IV CONTRAST INDICATION: Seizure, new-onset, no histo ry of trauma; convulsive episode; TECHNIQUE: Routine CT of the brain was p erformed without contrast. FINDINGS: Mastoid air cells are clear. P aranasal sinuses are clear. Sulci and gyri are normal in configuration. No intracranial hemorrhage. No extraaxial fluid collection. Ventricle size is normal for a ge. Small lymph nodes along the parotid glands bilaterally. IMPRESSION: No acute intracranial abnorm ality. Electronically Signed: Serg Cameron MD 9:47 PM Procedure Note Serg Cameron MD - 04/15/2022Formattin g of this note might be different from the original. This document is currently in Final Stat us Exam CT HEAD WO IV CONTRAST INDICATION: Seizure, new-onset, no histo ry of trauma; convulsive episode; TECHNIQUE: Routine CT of the brain was p erformed without contrast. FINDINGS: Mastoid air cells are clear. P aranasal sinuses are clear. Sulci and gyri are normal in configuration. No intracranial hemorrhage. No extraaxial fluid collection. Ventricle size is normal for age. Small lymph nodes along the parotid glands bilateral ly. IMPRESSION: No acute intracranial abnorm ality. Electronically Signed: Serg Cameron MD 9:47 PM Hailey Ziegler MD EC CT ORDERABLES URINE MICROSCOPIC EXAMINATION (04/15/2022 7:58 PM CDT) [facility] Method Time Signature Urine WBC's 3-8 0 - 8 /HPF 04/15/2022 [facility] 8:21 PM [facility] LABORATORY Urine RBC's 0-3 0 - 3 /HPF 04/15/2022 [facility] 8:21 PM [facility] Urine Squamous Moderate /HPF 04/15/2022 [facility] Epithelial 8:21 PM T [facility] Cells LABORATORY Specimen Anatomical Collection Method Collection Time Receive d Time (Source) Location / / Volume Laterality Urine MEDICAL LAB TECHNICIAN Non-blood 04/15/2022 7:58 PM 04/15/20 22 8:01 MID-STREAM URINE collection / CDT PM CDT SPECIMEN OBTAINED Unknown BY CLEAN CATCH PROCEDURE / Unknown Narrative [facility] LABORATORY - 12/2021 8:21 PM CDT Urine Culture is not indicated. Hailey Ziegler MD EC URINE ORDERABLES Performing Organization Address City/State/ZIP Code Phon e Number [address] [address] LABORATORY (ABNORMAL) URINALYSIS, REFLEX TO CULTURE (04/15/2022 7:58 PM CDT) [facility] Method Time Signature Urine Color Yellow Straw, 04/15/2022 [facility] Yellow, 8:21 PM T [facility] LABORATORY Urine Slightly Clear 04/15/2022 [facility] Appearance Cloudy (A) 8:21 PM T [facility] Urine Specific 1.015 1.003 - 04/15/2022 [facility] Leonard 1.035 8:21 PM T [facility]ITAL LABORATORY Urine pH 5.5 5.0 - 8.0 04/15/2022 [facility] 8:21 PM T [facility] LAB[facility]ATORY Urine Glucose Negative Negative 04/15/2022 [facility] 8:21 PM CDT HOSPITAL LABORATORY Urine Ketones 15 (A) Negative 04/15/2022 [facility] 8:21 PM T [facility] LAB[facility]ORY Urine Protein Negative Negative, 04/15/2022 [facility] Trace mg/dL 8:21 PM T [facility] LAB[facility]ORY Urine Nitrites Negative Negative 04/15/2022 [facility] 8:21 PM T [facility] LAB[facility]ORY Urine Trace (A) Negative 04/15/2022 [facility] Leukocyte 8:21 PM T [facility] Esterase LABORATORY Specimen Anatomical Collection Method Collection Time Receive d Time (Source) Location / / Volume Laterality Urine MEDICAL LAB TECHNICIAN Non-blood 04/15/2022 7:58 PM 04/15/20 8:01 MID-STREAM URINE collection / CDT PM CDT SPECIMEN OBTAINED Unknown BY CLEAN CATCH PROCEDURE / Unknown Hailey Ziegler MD EC URINE ORDERABLES Performing Organization Address City/[facility] Phon e Number [address] [address] LABORATORY HOLD LI HEPARIN (04/15/2022 7:52 PM CDT) Specimen Anatomical Collection Method / Collection Time Recei iva Time (Source) Location / Volume Laterality Blood BLOOD SPECIMEN / Venipuncture / 04/15/2022 7:52 2021 7:59 Unknown Unknown PM CDT PM CDT Hailey Ziegler MD EC CHEMISTRY ORDERABLES Performing Organization Address City/[facility] Code Phon e Number [address] [address] LABORATORY HOLD NA CITRATE (04/15/2022 7:52 PM CDT) Specimen Anatomical Collection Method / Collection Time Recei iva Time (Source) Location / Volume Laterality Blood BLOOD SPECIMEN / Venipuncture / 04/15/2022 7:52 2021 7:59 Unknown Unknown PM CDT PM CDT Hailey Ziegler MD EC HEMATOLOGY ORDERABLES Performing Organization Address City/[facility] Phon e Number [address] [address] LABORATORY HOLD PURPLE TUBE (04/15/2022 7:52 PM CDT) Specimen Anatomical Collection Method / Collection Time Recei iva Time (Source) Location / Volume Laterality Blood BLOOD SPECIMEN / Venipuncture / 04/15/2022 7:52 2021 7:59 Unknown Unknown PM CDT PM CDT Hailey Ziegler MD EC HEMATOLOGY ORDERABLES Performing Organization Address [facility] Phon e Number [address] [address] LABORATORY HOLD SERUM TUBE (04/15/2022 7:52 PM CDT) Specimen Anatomical Collection Method / Collection Time Recei iva Time (Source) Location / Volume Laterality Blood BLOOD SPECIMEN / Venipuncture / 04/15/2022 7:52 2021 7:59 Unknown Unknown PM CDT PM CDT Hailey Ziegler MD EC CHEMISTRY ORDERABLES Performing Organization Address [facility] Phon e Number [address] [address] LABORATORY (ABNORMAL) COMPREHENSIVE METABOLIC PANEL (04/15/2022 7:52 PM CDT) P athologist Signature Sodium 138 134 - 143 04/15/2022 [facility] mEq/L 8:20 PM [facility]ORY Potassium 3.9 3.4 - 5.1 04/15/2022 [facility] mEq/L 8:20 PM [facility]ORY Chloride 107 99 - 110 04/15/2022 [facility] mEq/L 8:20 PM [facility] Carbon Dioxide 20 19 - 29 04/15/2022 [facility] mEq/L 8:20 PM [facility] LAB[facility] Anion Gap 11.0 3.0 - 15.0 04/15/2022 [facility] mEq/L 8:20 PM [facility]ORY Blood Urea 7 5 - 24 04/15/2022 [facility] Nitrogen mg/dL 8:20 PM [facility] LABOR[facility]ORY Creatinine 0.52 0.40 - 04/15/2022 [facility] 1.00 mg/dL 8:20 PM [facility] LABORATORY Glomerular >60 >60 04/15/2022 [facility] Filtration Rate mL/min/1.7 8:20 PM [facility] 3 m*2 LABORATORY Comment: Complications of CKD and risk o f cardiovascular disease increase when GFR is below 60ml.min/1.73m2. A persistently re duced GFR is a specific indication of Chronic Kidney Disease. The eGFR calculation has not been validated in patients >70yrs. Calcium 8.8 8.4 - 10.5 04/15/2022 8:[address] [facility] Mary JANNA mg/dL [facility] LABORATORY Glucose 103 (H) 70 - 99 mg/dL 04/15/2022 8:20 PM [facility] Protein, Total 7.3 6.0 - 8.0 04/15/2022 8:20 PM [facility] LEDEZMA g/dL [facility] LABORATORY Albumin 3.8 3.5 - 5.0 04/15/2022 8:20 PM [facility] DELEON KE g/dL [facility] LAB[facility]ORY Alkaline Phosphatase 81 40 - 150 IU/L 04/15/2022 8:20 PM [facility] Aspartate 16 10 - 40 IU/L 04/15/2022 8:20 PM [facility] Aminotransferase [facility] Alanine Aminotransferase 21 6 - 31 IU/L 04/15/2022 8: 20 PM [facility] Bilirubin, Total 0.4 0.2 - 1.2 04/15/2022 8:20 PM Marcelina NAPOLES DRYDEN mg/dL [facility] LABORATORY Specimen Anatomical Collection Method / Collection Time Recei iva Time (Source) Location / Volume Laterality Blood BLOOD SPECIMEN / Venipuncture / 04/15/2022 7:52 2021 7:59 Unknown Unknown [facility] - 12/2021 8:20 PM [facility] Current ADA criteria for Glucose: ?Normal: 70-99 mg/dL ?Impaired Fasting Glucose: 100-125 mg/dL ?Diabetes Mellitus: at or above 126 mg/dL The diagnosis of diabetes must be confir med on a subsequent day by measuring Fasting Plasma Glucose, 2-hr PG or random plasma glucose (if symptoms are present). Hailey Ziegler MD EC CHEMISTRY ORDERABLES Performing Organization Address City/State/ZIP Code [facility] e Number [facility] [address] [place] [address] LABORATORY (ABNORMAL) HEMOGRAM/DIFFERENTIAL (04/15/2022 7:52 PM CDT) [facility] Method Time Signature WBC 12.1 (H) 3.2 - 04/15/2022 [facility] 11.0 8:21 PM CDT HOSPITAL 10*9/L LABORATORY RBC 4.91 3.77 - 04/15/2022 [facility] 5.24 8:21 PM CDT HOSPITAL 10*12/L LABORATORY HGB 9.7 (L) 11.2 - 04/15/2022 [facility] 15.5 g/dL 8:21 PM CDT HOSPITAL LABORATORY HCT 32.8 (L) 34.3 - 04/15/2022 [facility] 46.0 % 8:21 PM CDT HOSPITAL LABORATORY MCV 66.8 (L) 81.4 - 04/15/2022 [facility] 99.0 fL 8:21 PM CDT HOSPITAL LABORATORY MCH 19.8 (L) 26.7 - 04/15/2022 [facility] 33.1 pg 8:21 PM CDT HOSPITAL LABORATORY MCHC 29.6 (L) 31.6 - 04/15/2022 [facility] 35.5 g/dL 8:21 PM CDT HOSPITAL LABORATORY RDW 21.4 (H) 11.3 - 04/15/2022 [facility] 14.6 % 8:21 PM CDT HOSPITAL LABORATORY PLT 372 130 - 375 04/15/2022 [facility] 10*9/L 8:21 PM CDT HOSPITAL LABORATORY Neutrophils % 79.7 % 04/15/2022 [facility] 8:21 PM CDT HOSPITAL LABORATORY Lymphocytes % 14.3 % 04/15/2022 [facility] 8:21 PM CDT HOSPITAL LABORATORY Monocytes % 5.7 % 04/15/2022 [facility] 8:21 PM CDT HOSPITAL LABORATORY Eosinophils % 0.1 % 04/15/2022 [facility] 8:21 PM CDT HOSPITAL LABORATORY Basophils % 0.2 % 04/15/2022 [facility] 8:21 PM CDT HOSPITAL LABORATORY Neutrophils 9.6 (H) 1.5 - 7.6 04/15/2022 [facility] Absolute 10*9/L 8:21 PM T HOSPITAL LABORATORY Lymphocytes 1.7 0.8 - 3.3 04/15/2022 [facility] Absolute 10*9/L 8:21 PM T HOSPITAL LABORATORY Monocytes 0.7 0.2 - 0.9 04/15/2022 [facility] Absolute 10*9/L 8:21 PM T HOSPITAL LABORATORY Eosinophils 0.0 0.0 - 0.4 04/15/2022 [facility] Absolute 10*9/L 8:21 PM T HOSPITAL LABORATORY Basophils 0.0 0.0 - 0.1 04/15/2022 [facility] Absolute 10*9/L 8:21 PM T HOSPITAL LABORATORY Specimen Anatomical Collection Method / Collection Time Recei iva Time (Source) Location / Volume Laterality Blood BLOOD SPECIMEN / Venipuncture / 04/15/2022 7:52 2021 7:59 Unknown Unknown PM CDT PM CDT Hailey Ziegler MD EC HEMATOLOGY ORDERABLES Performing Organization Address City/State/ZIP Code Phon e Number [address] [address] LABORATORY MAGNESIUM (04/15/2022 7:52 PM CDT) P athologist Signature Magnesium 1.9 1.8 - 2.7 04/15/2022 [facility] mg/dL 8:20 PM T HOSPITAL LABORATORY Specimen Anatomical Collection Method / Collection Time Recei iva Time (Source) Location / Volume Laterality Blood BLOOD SPECIMEN / Venipuncture / 04/15/2022 7:52 2021 7:59 Unknown Unknown PM CDT PM CDT Hailey Ziegler MD EC CHEMISTRY ORDERABLES Performing Organization Address City/[facility]/ZIP [facility] Phon e Number [address] [address] LABORATORY from Last 3 Months Insurance Payer Benefit Plan / Subscriber ID Effective Dates Phone Addre ss Type Group UCARE UCARE??PMAP [id number] 2022-Present [phone] ATTN ??CLAIMS PMAP [address] [place] [address]
--- OUTSIDE RECORDS SUMMARY | 2022-07-12 20:18 | XMS_ITS | Encounter Summary ---
:1995 Author Organization [facility] Address [address] [place] [address] Care Team Providers Name Role Phone Unavailable Primary Care Provider Unavailable Reason for Visit Reason Comments Appt. Needed VV f/u next available Encounter Details Date Type Department Care Team Description 06/26/2021 Telephone [facility] [address] En[address] Rocha Ap pt. Needed (VV f/u Endocrinology MD next available) [address] [facility] [place] [address] [phone] (Wo rk) Social History Tobacco Use Types [...] this encounter Nursing Notes Zayda Moreno - 06/26/2021 1:49 PM CST LVM to schedule 2W f/u, VV with Dr. Rocha or SURVEYOR HELPER/PA ALS MANAGER documented in this encounter Plan of Treatment Not on filedocumented as of this encounter Visit Diagnoses Not on filedocumented in this encounter
--- OUTSIDE RECORDS SUMMARY | 2022-07-12 20:18 | XMS_ITS | Encounter Summary ---
:1995 Author Organization [facility] Address [address] [place] [address] Care Team Providers Name Role Phone Unavailable Primary Care Provider Unavailable Encounter Details Date Type Department Care Team Description 04/11/2021 Notes/Orders [employer] Cris Gardner, Ty pe 2 diabetes Diabetes RDN, DREW, JANE mellitus in [address] [facility] . [address] [place] , [place] [address] Blvd trimester (Primary [phone] [place], [place] Dx) [address] Social History Tobacco Use [...] documented as of this encounter Progress Notes Cris Gardner, DAVIDN, LD, JANE - 04/11/2021 2:39 PM CDT Edward, I've pended an insulin prescription for your review and approval. If the insulin dose(s) are changed, please inform the patient. Just FYI, patient is not washing her hands with soap and water prior to checking her blood sugar which would explain why her fastings range from 90-200 mg/dl. I told her to start NPH Friday evening if her fasting remains elevated these next 2 days once we can confirm she's been washing her hands. Thank you, documented in this encounter Plan of Treatment Not on filedocumented as of this encounter Visit Diagnoses Diagnosis Type 2 diabetes mellitus in , f irst trimester - Primary documented in this encounter
--- OUTSIDE RECORDS SUMMARY | 2022-07-12 20:18 | XMS_ITS | Encounter Summary ---
:1995 Author Organization [facility] Address [address] [place] [address] Care Team Providers Name Role Phone Unavailable Primary Care Provider Unavailable Reason for Visit Reason Comments Diabetes Encounter Details Date Type Department Care Team Description 05/01/2021 Telemedicine [facility] [address] Enrico Rocha, Sharath e-existing type 2 diabetes mellitus during in third trimester (Primary Dx); Endocrinology MD Type 2 diabetes mellitus in , f irst trimester [address] [facility] [address] [place] [address] [phone] (Wo rk) Social History Tobacco Use Types [...] this encounter Progress Notes Juany Jorge - 05/01/2021 1:40 PM CDT 04/30/21 Called lvm re: chart prep Lisa Zee RN - 05/01/2021 1:40 PM CDT Called Pt. And LVM to call back and complete pre visit prep. 05/01/2021 8:30 AM Mary Rahman RN - 05/01/2021 1:40 PM CDT Pre-Visit Planning for Phone/Video Visit: Diabetes Pre-visit planning completed. Reviewed the following: - Medications (pended refills) - Pharmacy - Allergies - Last foot & eye exam - Tobacco/alcohol use Current Diabetes Medications Humulin N 18 units in AM and 6 units in PM R 10 units in AM and 6 units in PM Reported Glucose Results: Date Fasting 1-2 hr post Pre-lunch 1-2 hr post Pre-dinner 1-2 hr post HS 05/01 04/30 141 220 245 04/25 224 108 120 04/24 197 108 Patient Concerns: Pt does not test regularly. Enrico Rocha MD - 05/01/2021 12:00 AM CDT NAME: VALERY APARICIO CSN: [id number] CLINIC NOTE DATE OF SERVICE: 05/01/2021 : 1995 SUBJECTIVE: Valery is a 25-year-old woman who I am meeting with today for followup of gestational diabetes. I had met with her previously on April 09 and since she has had a couple of visits with Cris Nieto on April 11 and Kaylen on April 20. When she saw Kaylen, it was clear that her glucose was high on only nighttime NPH 12 units. Recommendation was given for split mixed insulin regular 10 at breakfast, 6 before supper, NPH 18 before breakfast, 6 before supper with recommendation forclose followup at [place] on April 24. Her meals are fairly consistent around 6 to 7 a.m., lunch around noon to 1, supper around 6 to 7 p.m. Unfortunately, she did not act on the new insulin recommendation, did not make the change, remainedon nighttime NPH only and then subsequently, she missed the April 24 appointment. This past weekend, she got nervous because she had not made any changes, contacted a Care Line nurse(per her recounting) and obtained the regular insulin prescription. She refers to the insulins as clear and cloudy. She understood the doses correctly, regular 10 in the morning, 6 at supper, NPH 18 inthe morning, 6 at supper. She has been taking the injections separately. She is very uncertain of how to use the syringe. Her glucose tests are showing that she is high in the morning 130s to 140s, post breakfast today wasthe same as pre breakfast at 132, pre supper 220, nighttime 220. She had not done her lunchtime test. She does not understand how to mix the insulin and did not understand how the syringe worked, how to determine which line was her dose, or how to interpret the small lines between the larger ones. Physically, she feels well. She would like to do an in person visit to make sure she understands howto mix those insulins. She is okay with taking 2 separate injections until then. She lives in [place], [place], so that will be closer to [place]. MEDICATION LIST: Reviewed and updated in [employer]. OBJECTIVE: Deferred, video visit. We spent almost the whole visit trying to help her to use that syringe. Unfortunately, it is hard to actually see the syringe clearly through the phone. LAB: None recent. ASSESSMENT: 1.Gestational diabetes, insulin treated. 2.Adherence issues, not understanding how to use the insulin syringe or to mix insulin and failed her followup appointment. PLAN: For now, will stay with split insulin doses. She will take the regular and NPH separately, so 2 injections at breakfast and supper. I will increase the insulins. Will take regular 10 at breakfast, 8 before supper, NPH 22 before breakfast, 10 before supper. I explained to her how to use the syringe and determine the doses for those specific doses. She does need to do an in person visit and I will [place] [facility] [place] She needs to be taught how to use the syringe and mix to be sure. Ithink she has got it for now, but need to reinforce. Followup hopefully at the [facility] within the next week. Follow up with me or APC down here in a couple weeks. Reinforced the importance of tight control, especially this early in . Total time today 40 minutes. ENRICO ROCHA MD GSD/AQS /[id number] cc:RAFAEL Louie documented in this encounter Plan of Treatment Not on filedocumented as of this encounter Visit Diagnoses Diagnosis Pre-existing type 2 diabetes mellitus du ring in third trimester - Primary Type 2 diabetes mellitus in , f irst trimester documented in this encounter
--- OUTSIDE RECORDS SUMMARY | 2022-07-12 20:18 | XMS_ITS | Encounter Summary ---
:1995 Author Organization [employer] [facility] Address [address] [address] Phone Care Team Providers Name Role Phone Unavailable Primary Care Provider Unavailable Encounter Details Date Type Department Care Team Description 04/15/2022 Ancillary Procedure [facility] RADIOLOG[facility] CT [facility] [address] [address] Social History Tobacco Use Types Packs/Day Years Used Date Smoking Tobacco: Never Assessed Sex Assigned at Date Recorded Not on file Job Start Date Occupation Industry Not on file Not on file Not on file documented as of this encounter Plan of Treatment Not on filedocumented as of this encounter Procedures Procedure Name Priority Date/Time Associated Diagnosis Comme nts CT HEAD WO IV STAT 04/15/2022 9:40 PM Pseudoseizure Results for this CONTRAST CDT procedure are i n the results section. documented in this encounter Results CT HEAD WO IV CONTRAST (04/15/2022 [...] PM Hailey Ziegler MD EC CT ORDERABLES documented in this encounter Visit Diagnoses Not on filedocumented in this encounter
--- OUTSIDE RECORDS SUMMARY | 2022-07-12 20:19 | XMS_ITS | Encounter Summary ---
:1995 Author Organization [facility] Address [address] [facility] [place] [address] Care Team Providers Name Role Phone Hermelinda Reid MD Unavailable [phone] Hermelinda Reid MD Unavailable [phone] Ref-Primary, Physician Primary Care Provider [phone] Lore Son MD Unavailable [phone] Encounter Details Date Type Department Care Team Description 07/05/2022 Travel Social History Tobacco Use Types Packs/Day Years Used Date Smoking Tobacco: Never Smokeless Tobacco: Never Alcohol Use Standard Drinks/Week Comments Not Currently 0 (1 standard drink = 0.6 oz pure alcoho l) Sex Assigned at Date Recorded Female 09/11/2021 7:15 AM 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 documented as of this encounter Plan of Treatment Upcoming Encounters Date Type Specialty Care Team Description 07/26/2022 Appointment Radiology. Dion Ramirez MD [address] [facility] [address] [place], [place] [address] Liliana Wright MD [address] [facility] [address] [place], [place] [id number] 07/26/2022 Office Visit Maternal and Dion Ramirez MD [address] [facility] [address] [place], [place] [id number] Medicine Liliana Wright MD [address] [facility] [address] [place], [place] [id number] 08/13/2022 Appointment Cardiology Dion Ramirez MD [address] [place] [address] (Wo rk) documented as of this encounter Visit Diagnoses Not on filedocumented in this encounter Care Teams Superintendent Storage Area Relationship Specialty Start Date End Date No Ref-Primary, PCP - General 04/29/22 Physician MD Jeanette Endocrinology, 08/29/21 MD Hermelinda Diabetes, and [address] [facility] Metabolism [address] [place] [address] Radha Reid Endocrinology 09/09/21 MD Hermelinda Provider [address] [facility] [address] [place] [address] Lore Son Assigned OBGYN Provider 05/18/22 MD Gianni [address] [place] [address] documented as of this encounter
--- OUTSIDE RECORDS SUMMARY | 2022-07-12 20:19 | XMS_ITS | Clinical Summary ---
:1995 Author Organization [facility] Address [address] [place] [address] Care Team Providers Name Role Phone Hermelinda Reid MD Unavailable [phone] Hermelinda Reid MD Unavailable [phone] Ref-Primary, Physician Primary Care Provider [phone] Remington Son MD Unavailable [phone] Allergies No known active allergies Medications Medication Sig Dispensed Refills Start Date End Date Status acetaminophen Take 1-2 tablets 30 tablet 0 09/24/2021 Active (TYLENOL) 500 MG (500-1,000 mg) by tabletIndications: mouth every 6 hours S/P as needed for mild pain insulin NPH 100 Inject 15 Units 15 mL 0 09/24/2021 Active UNIT/ML Subcutaneous every injectionIndications: morning (before S/P breakfast) insulin NPH 100 Inject 10 Units 15 mL 0 09/24/2021 Active UNIT/ML Subcutaneous daily injectionIndications: (with dinner) S/P insulin aspart Inject 5 Units 15 mL 0 09/24/2021 Active (NOVOLOG PEN) 100 Subcutaneous 3 UNIT/ML times daily (before penIndications: S/P meals) insulin NPH 100 Inject 15 Units 0.15 mL 0 09/24/2021 Active UNIT/ML Subcutaneous once injectionIndications: for 1 dose Elevated blood sugar Ferrous Sulfate 324 0 Active (65 Fe) MG TBEC Vit-Fe 0 Acti ve Fumarate-FA ( VITAMINS PLUS PO) Active Problems Problem Noted Date Pre-eclampsia 09/20/2021 Elevated blood sugar 08/26/2021 Estimated Date of Delivery Comments Yes 12/03/2022 Based on last menstr ual period of 02/26/2022 (Exact Date) Encounters Date Type Specialty Care Team Description 07/05/2022 Office Visit Maternal and Huy, with type 2 diabetes mellitus in second trimester (Primary Dx); Medicine Remington Archer, Encounter fo r follow-up ultrasound of anatomy Dion Morales MD 07/05/2022 Hospital Encounter Radiology. Huy, related josee Dc MD antepartum Dion Ramirez MD 07/05/2022 Travel 06/27/2022 PRE VISIT Maternal and Mary Velazquez, Matto und (L2-T2DM) Medicine RN 05/20/2022 Allied Health/Nurse Nursing Allied H ealt Visit Visit (Nurse only for [facility]... 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 Pregnanc y test positive 04/29/2022 Travel 04/19/2022 Orders Only associate professor of art history Dalia Ervin racquel Alves MD positive (Prima ry Dx) from Last 3 Months Family History Medical History Relation Comments Diabetes Father Hypertension Father Hypertension Other Cerebrovascular Disease Paternal Grandmother Asthma Sister 1 Relation Status Comments Brother 1 Alive Brother 2 Alive Father Alive Maternal Grandfather Maternal Grandmother Mother Alive Other Alive Paternal Grandfather Paternal Grandmother Alive Sister 1 Alive Sister 2 Alive Sister 3 Alive Sister 4 Alive Sister 5 Alive Social History Tobacco Use Types Packs/Day Years Used Date Smoking Tobacco: Never Smokeless Tobacco: Never Tobacco Cessation: Counseling Given: No Alcohol Use Standard Drinks/Week Comments Not Currently 0 (1 standard drink = 0.6 oz pure alcoho l) Estimated Date of Delivery Comments Yes 12/03/2022 Based on last menstr ual period of 02/26/2022 (Exact Date) Sex Assigned at Date Recorded Female 09/11/2021 7:15 AM [employer] COVID-19 Exposure Response Date Recorded In the last 10 days, have you been in contact No / Unsure 07/05/2022 10:09 AM [employer] with someone who was confirmed or suspected to have Coronavirus/COVID-19? Last Filed Vital Signs Vital Sign Reading Time Taken Comments Blood Pressure 128/74 05/13/2022 10:04 AM CDT Pulse 101 05/13/2022 10:04 AM CDT Temperature 36.7 ??C (98 ??F) 09/25/2021 2:08 PM [employer] Respiratory Rate 27 09/25/2021 4:00 PM [employer] Oxygen Saturation 100% 09/25/2021 4:00 PM [employer] Inhaled Oxygen Concentration - - Weight 84.8 kg (187 lb) 05/20/2022 8:47 AM CDT Height 154.9 cm (5' 1) 09/28/2021 10:34 AM [employer] Body Mass Index 35.33 09/28/2021 10:34 AM [employer] Plan of Treatment Upcoming Encounters Date Type Specialty Care Team Description 07/26/2022 Appointment Radiology. Dion Ramirez MD [address] [place], [place] [address] Liliana Wright MD [address] [place] [phone] 07/26/2022 Office Visit Maternal and Dion Ramirez MD [address] [place], [place] [id number] Medicine Liliana Wright MD [address] [id number] 08/13/2022 Appointment Cardiology Dion Ramirez MD [address] [place], [place] [address] (Wo rk) Health Maintenance Due Date Last Done Comments ADVANCE CARE PLANNING 1995 ANNUAL REVIEW OF HM ORDERS 1994 DIABETIC FOOT EXAM 1994 EYE EXAM 1994 LIPID 1994 Pneumococcal Vaccine: 2000 Pediatrics (0 to 5 Years) and At-Risk Patients (6 to 64 Years) (1 - PCV) PAP 2015 COVID-19 Vaccine (3 - 04/07/2021 02/10/2021, 01/11/2021 Booster for Moderna series) YEARLY PREVENTIVE VISIT 05/01/2021 05/01/2020 INFLUENZA VACCINE (#1) 2022 05/01/2020, 06/10/2019, 07/07/2018, Additional history exists A1C 04/19/2022 01/17/2022 MATERNAL SCREENING 06/11/2022 REPEAT ANTIBODY SCREEN (OB) 09/10/2022 05/13/2022, 09/21/19 22 MICROALBUMIN 09/20/2022 09/20/2021 BMP 09/25/2022 09/25/2021, 09/22/2021, 09/21/2021, Additional history exists GROUP B STREP SCREENING 11/05/2022 09/20/2021 DTAP/TDAP/TD IMMUNIZATION 11/29/2025 11/30/2015, 03/28/2006 , (7 - Td or Tdap) 04/03/1999, Additional history exists HEPATITIS B IMMUNIZATION Completed 11/01/1997, 11/01/1997, 07/13/1996, Additional history exists IPV IMMUNIZATION Completed 04/03/1999, 11/01/1997, 07/13/1996, Additional history exists MENINGITIS IMMUNIZATION Aged Out 11/05/2006, 11/05/2006 N o longer eligible based on patient 's age to complete this topic HEPATITIS C SCREENING Completed 05/13/2022, 03/27/2021 HIV SCREENING Completed 05/13/2022, 03/27/2021 PHQ-2 (once per calendar Completed 05/13/2022, 05/09/2022, year) 05/06/2022, Additional history exists Procedures Procedure Name Priority Date/Time Associated Comments Diagnosis MFM US COMPREHENSIVE Routine 07/05/2022 10:54 relate d Results for this SINGLE AM [employer] condition, procedure are i n antepartum the results section. INVITAE NON-INVASIVE Routine 05/20/2022 8:52 AM Supervision of high Results for this SCREENING CDT risk , proced ure are in antepartum the results section. URINE CULTURE Routine 05/13/2022 10:48 Supervision of high Res ults for this AM CDT risk , procedure ar e in antepartum the results section. ABO/RH TYPE AND SCREEN Routine 05/13/2022 9:50 AM Supervision of high Results for this CDT risk , procedure ar e in antepartum the results section. TYPE AND SCREEN, ADULT Routine 05/13/2022 9:50 AM Supervision of high Results for this CDT risk , procedure ar e in antepartum the results section. VARICELLA ZOSTER VIRUS Routine 05/13/2022 9:50 AM Supervision of high Results for this ANTIBODY IGG CDT risk , procedure ar e in antepartum the results section. HEPATITIS C ANTIBODY Routine 05/13/2022 9:50 AM Supervision of high Results for this CDT risk , procedure ar e in antepartum the results section. TREPONEMA ABS W REFLEX Routine 05/13/2022 9:50 AM Supervision of high Results for this TO RPR AND TITER CDT risk , procedur e are in antepartum the results section. RUBELLA ANTIBODY IGG Routine 05/13/2022 9:50 AM Supervision of high Results for this CDT risk , procedure ar e in antepartum the results section. HIV ANTIGEN ANTIBODY Routine 05/13/2022 9:50 AM Supervision of high Results for this COMBO CDT risk , procedure ar e in antepartum the results section. CBC WITH PLATELETS Routine 05/13/2022 9:50 AM Supervision of h igh Results for this CDT risk , procedure ar e in antepartum the results section. HEPATITIS B SURFACE Routine 05/13/2022 9:50 AM Supervision of high Results for this ANTIGEN CDT risk , procedure ar e in antepartum the results section. CHLAMYDIA TRACHOMATIS Routine 05/13/2022 9:[address] D Results for this PCR CDT (sexually procedure are i n transmitted the results disease) section. NEISSERIA GONORRHOEAE Routine 05/13/2022 9:[address] D Results for this PCR CDT (sexually procedure are i n transmitted the results disease) section. US OB <14 WEEKS WITH Routine 04/29/2022 10:58 test R esults for this TRANSVAGINAL SINGLE AM CDT positive procedur e are in the results section. from Last 3 Months Results M US Comprehensive Single (07/05/2022 10:54 AM [employer]) Anatomical Region Laterality Modality Ultrasound Specimen (Source) Anatomical Collection Method Collection Time Re ceived Time Location / / Volume Laterality 07/05/2022 10:00 AM [employer] Impressions 07/05/2022 11:18 AM [employer] IMPRESSION 1) Sonographic biometry agrees with gest ational age predicted by LMP. 2) The cardiac anatomy, right foot and l ips were not adequately seen due to position. 3) The anatomy was otherwise adequ ately visualized and appeared normal. 4) None of the anomalies commonly detect ed by ultrasound were evident in those structures that were visualized. 5) No markers for aneuploidy seen. Narrative 07/05/2022 11:18 AM [employer] Comprehensive Pat. Name: BEATRIZ SCOTT Study Date: 07/05 10:00am Pat. NO: [id number] Referring ??: KADEN SON Site: [facility] Payment Collector: Brandon Cespedes RDMS : 1995 Age: 26 INDICATION Type 2 Diabetes Mellitus. Prior preeclam psia - delivery . METHOD Transabdominal ultrasound examination. V iew: Suboptimal view: limited by maternal body habitus. Suboptimal view: limited by position Wolfe . Number of fetuses: 1 DATING ? Date ?Details ?Gest. age ?PAYTON LMP ?02/26/2022 ? 18 w + 3 d ? 12/03/2022 Prior assessment ? GA: 8 w + 3 d ?18 w + 0 d ? 12/06/2022 U/S ? 07/05/2022 ? based upon AC, BPD, Femur, HC ? 1 7 w + 6 d ? 12/07/2022 Assigned dating ?Dating performed on 07/05/2022, based on the LMP ? 18 w + 3 d ? 12/03/2022 GENERAL EVALUATION Cardiac activity present. FHR 154 bpm. movements present. Presentation tranverse with head to mate rnal left. Placenta Posterior, No Previa, > 2 cm fr om internal os. Umbilical cord 3 vessel cord. Amniotic fluid Amount of AF: normal. MVP 4.9 cm. BIOMETRY Main Biometry: BPD ?37.3 ?mm ? 17w 3d ?Hadlock OFD ?53.7 ?mm ? 17w 6d ?Nicolaides HC ?145.5 ?mm ?17w 5d ?Hadlock Cerebellum tr ?17.9 ? mm ?17w 6d ?Nicolaides AC ?122.3 ?mm ?17w 6d ?29% ?Hadlock Femur ?26.6 ? mm ?18w 1d ?Hadlock Humerus ?25.8 ?mm ? 18w 1d ?Aman Weight Calculation: EFW ? 217 ? g ? 20% ?Hadlock EFW (lb,oz) ? 0 lb 8 ?oz EFW by ?Hadlock ([id number]) Head / Face / Neck Biometry: Quality Assurance Monitor ? 4.8 ? mm CM ?3.6 ? mm Nasal bone ? 5.5 ? mm Nuchal fold ? 2.7 ? mm ANATOMY The following structures appear normal: Head / Neck ? Cranium. Head size. Head shape. Lateral ventricles. Choroid plexus. Midline falx. Cavum septi pellucidi. Cerebellum. Cisterna magna. ? Parenchyma. Thalami. Vermis. ? Neck. Nuchal fold. Face ? Profile. Nose. Maxilla. Mandible. Orbits. Lens. Heart / Thorax ?LVOT view. Situs. Bicaval view. Superior vena cava. Inferior vena cava. Cardiac position. Cardiac size. Cardiac rhythm. ? Right lung. Left lung. Diaphragm. Abdomen ? Abdominal wall. Stomach. Kidneys. Bladder. Liver. Bowel. Genitals. Spine ?Cervical spine. Thoracic spine. Lumbar spine. Sacral spine. Extremities / Skeleton ?Rig ht arm. Right hand. Left arm. Left hand. Right leg. Left leg. Left foot. The following structures could not be ad equately visualized: Face ? Lips. Heart / Thorax ?4-chamber view. RVOT view. Aortic arch view. Ductal arch view. 3-vessel view. 8-asyzph-hhyghbo view. Abdomen ? Cord insertion. Extremities / Skeleton ?Rig ht foot. Gender: female. MATERNAL STRUCTURES Cervix ?Visualized ? Appearance: Appears Closed ? Approach - Transabdominal: Cervical length 32.0 mm Right Ovary ?Visualized Left Ovary ?Visualized RECOMMENDATION We discussed the findings on today's ult rasound with the patient. The patient is scheduled to return to [facility] in 3 weeks to reassess anatomy and growth. Your patient has been scheduled for a fe quinn echocardiogram with Pediatric Cardiology. A copy of that consultation will be forwarded to you separately. Return to primary provider for continued care. Thank-you for the opportunity to partici trino in the care of this patient. If you have questions regarding today's evaluation or if we can be of further service, please contact the [facility]. anomalies may be present but not detected Procedure Note Dion Ramirez MD - 07/05/2022Forma tting of this note might be different from the original. Comprehensive Pat. Name:Tamera SCOTT Date:07/05/20 10:00am Pat. NO: [id number] MD:REMINGTON ANDRADE Site:[place]:AMAN Berrios :1995Age:26 INDICATION Type 2 Diabetes Mellitus. Prior preeclam psia - delivery . METHOD Transabdominal ultrasound examination. V iew: Suboptimal view: limited by maternal body habitus. Suboptimal view: limited by position Wolfe . Number of fetuses: 1 DATING Date Details Gest. age PAYTON LMP 02/26/2022 18 w + 3 d 12/03/2022 Prior assessment 04/29/2022 GA: 8 w + 3 d 18 w + 0 d 12/06/2022 U/S 07/05/2022 based upon AC, BPD, Femur , HC 17 w + 6 d 12/07/2022 Assigned dating Dating performed on 06/12, based on the LMP 18 w + 3 d 12/03/2022 GENERAL EVALUATION Cardiac activity present. FHR 154 bpm. movements present. Presentation tranverse with head to mate rnal left. Placenta Posterior, No Previa, > 2 cm fr om internal os. Umbilical cord 3 vessel cord. Amniotic fluid Amount of AF: normal. MVP 4.9 cm. BIOMETRY Main Biometry: BPD 37.3 mm 17w 3d Hadlock OFD 53.7 mm 17w 6d Nicolaides HC 145.5 mm 17w 5d Hadlock Cerebellum tr 17.9 mm 17w 6d Nicolaides AC 122.3 mm 17w 6d 29% Hadlock Femur 26.6 mm 18w 1d Hadlock Humerus 25.8 mm 18w 1d Aman Weight Calculation: EFW 217 g 20% Hadlock EFW (lb,oz) 0 lb 8 oz EFW by Hadlock ([id number]-FL) Head / Face / Neck Biometry: Quality Assurance Monitor 4.8 mm CM 3.6 mm Nasal bone 5.5 mm Nuchal fold 2.7 mm ANATOMY The following structures appear normal: Head / Neck Cranium. Head size. Head sha pe. Lateral ventricles. Choroid plexus. Midline falx. Cavum septi pellucidi. Cerebellum. Cisterna magna. Parenchyma. Thalami. Vermis. Neck. Nuchal fold. Face Profile. Nose. Maxilla. Mandible. O rbits. Lens. Heart / Thorax LVOT view. Situs. Bicaval view. Superior vena cava. Inferior vena cava. Cardiac position. Cardiac size. Cardiac rhythm. Right lung. Left lung. Diaphragm. Abdomen Abdominal wall. Stomach. Kidneys . Bladder. Liver. Bowel. Genitals. Spine Cervical spine. Thoracic spine. Pat mbar spine. Sacral spine. Extremities / Skeleton Right arm. Right hand. Left arm. Left hand. Right leg. Left leg. Left foot. The following structures could not be ad equately visualized: Face Lips. Heart / Thorax 4-chamber view. RVOT view . Aortic arch view. Ductal arch view. 3- vessel view. 3-meqhjp-yavvjin view. Abdomen Cord insertion. Extremities / Skeleton Right foot. Gender: female. MATERNAL STRUCTURES Cervix Visualized Appearance: Appears Closed Approach - Transabdominal: Cervical hanna gth 32.0 mm Right Ovary Visualized Left Ovary Visualized RECOMMENDATION We discussed the findings on today's [facility] rasound with the patient. The patient is scheduled to return to [facility] in 3 weeks to reassess anatomy and growth. Your patient has been scheduled for a [facility] echocardiogram with Pediatric Cardiology. A copy of that consultation will be forwarded to you separately. Return to primary provider for continued care. Thank-you for the opportunity to partici trino in the care of this patient. If you have questions regarding today's evaluation or if we can be of further service, please contact the [facility]. anomalies may be present but not detected IMPRESSION 1) Sonographic biometry agrees with gest ational age predicted by LMP. 2) The cardiac anatomy, right foot and l ips were not adequately seen due to position. 3) The anatomy was otherwise adequ ately visualized and appeared normal. 4) None of the anomalies commonly detect ed by ultrasound were evident in those structures that were visualized. 5) No markers for aneuploidy seen. Remington Son MD [facility] US ORDERABLES [facility] Non-Invasive Screening (05/20/2022 8:52 AM CDT) [facility] Method Time Signature See Scanned INVITAE 05/31/2022 INVITAE Result NON-INVASIVE 3:34 PM CDT SCREENING-Sc anned Specimen Anatomical Collection Method / Collection Time Recei iva Time (Source) Location / Volume Laterality Blood VENOUS BLOOD / Venipuncture / 05/20/2022 8:52 05/20/20 8:52 Unknown Unknown AM CDT AM CDT Narrative This result has an attachment that is no t available. Remington Son MD LAB - BLOOD ORDERABLES Performing Organization Address City/State/ZIP Code Phon e Number EREN [address] [place] [id number] Urine Culture Aerobic Bacterial (05/13/2022 10:48 AM CDT) athologist Signature Culture No Growth LESLIE 05/14/2022 UU IDD 12:39 PM CDT LABORATORY Specimen Anatomical Collection Method Collection Time Receive d Time (Source) Location / / Volume Laterality Urine MID-STREAM URINE Non-blood 05/13/2022 10:48 022 SPECIMEN / Unknown Collection / AM CDT 10:48 AM CDT Unknown Remington Son MD LAB - MICRO GENERAL ORDERA BLES Performing Organization Address City/[facility]/ZIP Code Phon e Number UU IDD LABORATORY [facility] [place] [phone] Diag. Lab [address] [facility], [address] Adult Type and Screen (05/13/2022 9:50 AM CDT) [facility] Method Time Signature ABO/RH(D) O POS 05/12/2022 BLOOD 7:00 PM CDT BANK Antibody Negative Negative 05/12/2022 BLOOD Screen 7:00 PM CDT BANK SPECIMEN [id number] 05/12/2022 BLOOD EXPIRATION 7:00 PM CDT BANK DATE Specimen Anatomical Collection Method / Collection Time Recei iva Time (Source) Location / Volume Laterality Blood STRUCTURE OF RIGHT Venipuncture / 05/13/2022 9:50 10/0 10/2021 9:51 UPPER LIMB / Unknown AM CDT AM CDT Unknown Remington Son MD LAB - BLOOD BANK TEST ORDE R Performing Organization Address City/State/ZIP Code Phon e Number BLOOD BANK [address] [phone] Varicella Zoster Virus Antibody IgG (05/13/2022 9:50 AM CDT) [facility] Method Time Signature VZV Tamar IgG 22.8 <135.0 05/13/2022 [facility] Instrument Index 4:13 PM CDT CORE/PROT/EN Value DO Varicella No detectable 05/13/2022 [facility] Zoster antibody. 4:13 PM CDT CORE/PROT/EN Antibody IgG DO Specimen Anatomical Collection Method / Collection Time Recei iva Time (Source) Location / Volume Laterality Blood STRUCTURE OF RIGHT Venipuncture / 05/13/2022 9:50 10/0 10/2021 9:51 UPPER LIMB / Unknown AM CDT AM CDT Unknown Remington Son MD LAB - BLOOD ORDERABLES Performing Organization Address City/[facility]/ZIP Code Phon e Number [facility] CORE/PROT/ENDO [facility] [place] [address] Core/Prot/Endo [address] [facility] [address] [facility], Room 3[address]580 Rubella Antibody IgG Quantitative (05/13/2022 9:50 AM CDT) [facility] Rubella Tamar IgG 1.01 <0.90 05/13/2022 [facility] Instrument Index 4:16 PM CDT CORE/PROT/END Value O Rubella Positive 05/13/2022 [facility] Antibody IgG 4:16 PM CDT CORE/PROT/END O Comment: Suggests previous exposure or i mmunization and probable immunity. Specimen Anatomical Collection Method / Collection Time Recei iva Time (Source) Location / Volume Laterality Blood STRUCTURE OF RIGHT Venipuncture / 05/13/2022 9:50 10/0 10/2021 9:51 UPPER LIMB / Unknown AM CDT AM CDT Unknown Remington Son MD LAB - BLOOD ORDERABLES Performing Organization Address City/State/ZIP Code Phon e Number [facility] CORE/PROT/ENDO [facility] [place] [address] Core/Prot/Endo [address] [facility] [address] [facility], Room [address]580 HIV Antigen Antibody Combo (05/13/2022 9:50 AM CDT) [facility] Method Time Signature HIV Antigen Nonreactive Nonreactive 05/14/2022 [facility] Antibody 12:53 PM CDT CORE/PROT/EN Combo DO Comment: HIV-1 p24 Ag & HIV-1/HIV-2 Ab N ot Detected Specimen Anatomical Collection Method / Collection Time Recei iva Time (Source) Location / Volume Laterality Blood STRUCTURE OF RIGHT Venipuncture / 05/13/2022 9:50 10/0 10/2021 9:51 UPPER LIMB / Unknown AM CDT AM CDT Unknown Remington Son MD LAB - BLOOD ORDERABLES Performing Organization Address City/[facility]/ZIP Code Phon e Number SPECIALTY CORE/PROT/ENDO Specialty [place], [place] [address] Core/Prot/Endo [address] [facility] [address] [facility], Room 3-580 Treponema Abs w Reflex to RPR and Titer (05/13/2022 9:50 AM CDT) [employer] Method Time Signature Treponema Nonreactive Nonreactive 05/13/2022 [facility] Antibody 4:09 PM CDT CORE/PROT/EN Total DO Specimen Anatomical Collection Method / Collection Time Recei iva Time (Source) Location / Volume Laterality Blood STRUCTURE OF RIGHT Venipuncture / 05/13/2022 9:50 10/0 10/2021 9:51 UPPER LIMB / Unknown AM CDT AM CDT Unknown Remington Son MD LAB - BLOOD ORDERABLES Performing Organization Address City/[facility]/ZIP Code Phon e Number SPECIALTY CORE/PROT/ENDO [facility] [place] [address] Core/Prot/Endo [address] [facility] [address] [facility], Room [address]-580 Hepatitis C antibody (05/13/2022 9:50 AM CDT) [employer] gist Method Time Signature Hepatitis C Nonreactive Nonreactive 05/13/2022 [facility] Antibody 4:00 PM CDT CORE/PROT/EN DO Specimen Anatomical Collection Method / Collection Time Recei iva Time (Source) Location / Volume Laterality Blood STRUCTURE OF RIGHT Venipuncture / 05/13/2022 9:50 10/0 10/2021 9:51 UPPER LIMB / Unknown AM CDT AM CDT Unknown Narrative [facility] CORE/PROT/ENDO - 05/13/2022 4:00 PM CDT Assay performance characteristics have n ot been established for newborns, infants, and children. Remington Son MD LAB - BLOOD ORDERABLES Performing Organization Address City/State/ZIP Code Phon e Number SPECIALTY CORE/PROT/ENDO Specialty [place], [place] [address] Core/Prot/Endo [address] [facility], Room 3-580 Hepatitis B surface antigen (05/13/2022 9:50 AM CDT) [facility] Method Time Signature Hepatitis B Nonreactive Nonreactive 05/13/2022 SPECIALTY Surface 4:00 PM CDT CORE/PROT/EN Antigen DO Specimen Anatomical Collection Method / Collection Time Recei iva Time (Source) Location / Volume Laterality Blood STRUCTURE OF RIGHT Venipuncture / 05/13/2022 9:50 10/0 10/2021 9:51 UPPER LIMB / Unknown AM CDT AM CDT Unknown Remington Son MD LAB - BLOOD ORDERABLES Performing Organization Address [facility] Code Phon e Number SPECIALTY CORE/PROT/ENDO [place], [place] [address] Core/Prot/Endo [address] [facility], Room 3-580 (ABNORMAL) CBC with platelets (05/13/2022 9:50 AM CDT) [facility] gist Method Time Signature WBC Count 7.8 4.0 - 11.0 05/13/2022 [facility] LABORATORY 10e3/uL 11:36 AM CDT RBC Count 4.60 3.80 - 05/13/2022 OX LABORATORY 5.20 11:36 AM CDT 10e6/uL Hemoglobin 9.6 (L) 11.7 - 05/13/2022 OX LABORATORY 15.7 g/dL 11:36 AM CDT Hematocrit 32.3 (L) 35.0 - 05/13/2022 OX LABORATORY 47.0 % 11:36 AM CDT MCV 70 (L) 78 - 100 05/13/2022 O[facility] LABORATORY fL 11:36 AM CDT MCH 20.9 (L) 26.5 - 05/13/2022 [facility] LABORATORY 33.0 pg 11:36 AM CDT MCHC 29.7 (L) 31.5 - 05/13/2022 OX LABORATORY 36.5 g/dL 11:36 AM CDT RDW 21.3 (H) 10.0 - 05/13/2022 OX LABORATORY 15.0 % 11:36 AM CDT Platelet Count 342 150 - 450 05/13/2022 OX LABORATORY 10e3/uL 11:36 AM CDT Specimen Anatomical Collection Method / Collection Time Recei iva Time (Source) Location / Volume Laterality Blood STRUCTURE OF RIGHT Venipuncture / 05/13/2022 9:50 10/0 10/2021 9:51 UPPER LIMB / Unknown AM CDT AM CDT Unknown Remington Son MD LAB - BLOOD ORDERABLES Performing Organization Address City/State/ZIP Code Phon e Number [facility] [place], [place] [phone] [facility] [phone] [place] [address] Lab (no room number, 1st floor of clinic) [facility] [place], [place] [phone] [facility] [address] [place] [address] Lab (no room number, 1st floor of clinic) NEISSERIA GONORRHOEA PCR (05/13/2022 9:47 AM CDT) [facility] Method Time Signature Neisseria Negative Negative 05/14/2022 [facility] IDD gonorrhoeae 1:02 PM CDT LABORATORY Comment: Negative for N. gonorrhoeae rRN A by filter washer and presser mediated amplification. A negative result by filter washer and presser mediate d amplification does not preclude the presence of C. trachomatis infection bec ause results are dependent on proper and adequate collection, absence of inhibito rs and sufficient rRNA to be detected. Specimen Anatomical Collection Method Collection Time Receive d Time (Source) Location / / Volume Laterality Urine VOIDED URINE Non-blood 05/13/2022 9:47 AM 2 SPECIMEN / Unknown Collection / CDT 10:17 AM CDT Unknown Remington Son MD LAB - MICRO GENERAL ORDERA BLES Performing Organization Address City/State/ZIP Code Phon e Number [facility] [place] [place] [phone] Diag. Lab [address] [facility], [address] CHLAMYDIA TRACHOMATIS PCR (05/13/2022 9:47 AM CDT) [facility] gist Method Time Signature Chlamydia Negative Negative 05/14/2022 [facility] ID[facility] trachomatis 1:02 PM CDT LABORATORY Comment: A negative result by transcript ion mediated amplification does not preclude the presence of C. trachomatis infection because results are dependent on proper and adequate collection, absence of inhibito rs and sufficient rRNA to be detected. Specimen Anatomical Collection Method Collection Time Receive d Time (Source) Location / / Volume Laterality Urine VOIDED URINE Non-blood 05/13/2022 9:47 AM 2 SPECIMEN / Unknown Collection / CDT 10:17 AM CDT Unknown Remington Son MD LAB - MICRO GENERAL ORDERA BLES Performing Organization Address City/State/ZIP Code Phon e Number [facility] [place] [place] [address] Diag. Lab [address] [facility], Room [address] OB <14 Weeks w Transvaginal Single (04/29/2022 10:58 AM CDT) Anatomical Region Laterality Modality Abdomen/Pelvis Ultrasound Specimen (Source) Anatomical Location Collection Method / Collectio n Time Received Time / Laterality Volume Impressions 04/29/2022 11:54 AM CDT ? MEASUREMENTS Gest Sac: vis ? Position:nl ?Contour:smooth/regular. Yolk sac: 2.6 mm wnl CRL: 1.91 cm. ?EGA: ??8w 3d ?? U/S EDC: 06 Dec 2022 correspond Cardiac Activity:Yes ? FHR: 165 bpm ?? Rt Ov L: 2.8 x 1.4 x 1.2 cm ?? Wnl Lt Ov L: 3.6 x 2.5 x 2.0 cm ?Complex cyst 2.1 x 1.7 x 1.7 cm Cul de sac: no free fluid ?? Early obstetric transabdominal and trans vaginal ultrasound. Living intrauterine is seen. Corresponding sonographic and menstrual EGA and EDC. Based on this, best estimated Date of Delivery: December 03. Normal amniotic fluid seen. Placenta: not seen, appropriate for this gestational age Gestational sac: seen and within normal limits Complex ovarian cyst seen. Benign in ronan earance. 1. Normal early OB ultrasound. Final due date is December 03, 2022. 2. Benign appearing complex ovarian cyst seen. Generally does not require follow up, but clinical correlation is s uggested. Remington Son MD FACOG Obstetrics and Gynecology [facility] Narrative 04/29/2022 11:54 AM CDT [facility] ULTRASOUND - OB < 14 Weeks- Transabdomin al and Transvaginal ?? Referring Provider: Dalia Ervin MD ?? INDICATIONS FOR ULTRASOUND: OB History: Previous Present Conditions: Initial S&D (0-17 we eks) ?? CLINICAL INFORMATION ?? LMP: 26 Feb 2022 - sure EDC: 03 Dec 2022 ?? EGA: 8 w 6 d ? Dalia Ervin MD IMG US ORDERABLES from Last 3 Months Insurance Payer Benefit Plan / Subscriber ID Effective Dates Phone Addre ss Type Group [employer] [facility] [id number] 2021-Present [phone] [address] [place] [address] Advance Directives For more information, please contact: [phone] Latest Code Status on File Code Status Date Activated Date Inactivated Comments Full Code 09/22/2021 10:27 AM 09/24/2021 3:34 PM All basic a nd advanced life-sustaining interventions are performed as ronan ropriate Question Answer Comments Code status determined by: Discussion with patient/ legal de cision maker Code Status History Code Status Date Activated Date Inactivated Comments Full Code 09/21/2021 12:30 AM 09/21/2021 5:21 PM All basic a nd advanced life-sustaining interventions are performed as ronan ropriate Question Answer Comments Code status determined by: Discussion with patient/ legal de cision maker Care Teams Shot Tube Machine Tender Relationship Specialty Start Date End Date No Ref-Primary, PCP - General 04/29/22 Physician MD Jeanette Endocrinology, 08/29/21 MD Hermelinda Diabetes, and 420 [facility] Metabolism [address] [place] [address] Radha Reid Endocrinology 09/09/21 MD Hermelinda Provider [address] [place] [address] Remington Son Assigned OBGYN Provider 05/18/22 MD Gianni [address] [place] [address]
--- OUTSIDE RECORDS SUMMARY | 2022-07-12 20:19 | XMS_ITS | Encounter Summary ---
:1995 Author Organization [place] Address [facility] 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 documented as of this encounter Plan of Treatment Upcoming Encounters Date Type Specialty Care Team Description 07/26/2022 Appointment Radiology. Dion Ramirez MD [address] [facility] [address] [place], [place] [id number] Liliana Wright MD [address] [facility] [address] [place], [place] [address] 07/26/2022 Office Visit Maternal and Dion Ramirez MD [address] [place], [place] [address] Medicine Liliana Wright MD [address] [place] [address] [facility] [address] [place], [place] [address] 08/13/2022 Appointment Cardiology Dion Ramirez MD [address] [place] [address] (Wo rk) documented as of this encounter Visit Diagnoses Not on filedocumented in this encounter Care Teams Computed Tomography Scanner Operator Relationship Specialty Start Date End Date No Ref-Primary, PCP - General 04/29/22 Physician MD Jeanette Endocrinology, 08/29/21 MD Hermelinda Diabetes, and [address] [facility] Metabolism [address] [place] [address] Radha Reid Endocrinology 09/09/21 MD Hermelinda Provider [address] [facility] [address] [place] [address] Dalia Ervin Assigned OBGYN Provider 10/07/21 [place] [address] [place], [place] [phone] documented as of this encounter
--- OUTSIDE RECORDS SUMMARY | 2022-07-12 20:19 | XMS_ITS | Encounter Summary ---
:1995 Author Organization [place] Address [address] [place] [address] Care Team Providers Name Role Phone Hermelinda Reid MD Unavailable [phone] Hermelinda Reid MD Unavailable [phone] No Ref-Primary, Physician Primary Care Provider [phone] Remington Lang MD Unavailable [phone] Reason for Referral Diagnostic Imaging Ultrasound (Routine) - Pending Review Specialty Diagnoses / Procedures Referred By Contact Refer red To Contact Diagnoses related condition, antepartum Remington Lang Procedures [facility] Hans Archer MD [address] [place] [address] Referral ID Status Reason Start Date Expiration Date Visits V isits Requested Authorized [id number] Pending 05/13/2022 05/13/2023 1 1 Review RVISOR CONTINUOUS WELD PIPE MILL Reason for Visit Diagnostic Imaging Ultrasound (Routine) - Pending Review Specialty Diagnoses / Procedures Referred By Contact Refer red To Contact Diagnoses related condition, antepartum Remington Lang Procedures [facility] Hans Archer MD [address] [place] [address] Referral ID Status Reason Start Date Expiration Date Visits V isits Requested Authorized [id number] Pending 05/13/2022 05/13/2023 1 1 Review Encounter Details Date Type Department Care Team Description 07/05/[address] 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 documented as of this encounter Medications at Time of Discharge Medication Sig Dispensed Refills Start Date End Date acetaminophen (TYLENOL) Take 1-2 tablets 30 tablet 0 2021 500 MG (500-1,000 mg) by mouth tabletIndications: S/P every 6 hours as needed for mild pain Ferrous Sulfate 324 (65 0 Fe) MG TBEC insulin aspart (NOVOLOG Inject 5 Units 15 mL 0 09/24/19 22 PEN) 100 UNIT/ML Subcutaneous 3 times penIndications: S/P daily (before meals) insulin NPH 100 UNIT/ML Inject 15 Units 15 mL 0 022 injectionIndications: Subcutaneous every S/P morning (before breakfast) insulin NPH 100 UNIT/ML Inject 10 Units 15 mL 0 022 injectionIndications: Subcutaneous daily S/P (with dinner) Vit-Fe 0 Fumarate-FA ( VITAMINS PLUS PO) documented as of this encounter Plan of Treatment Upcoming Encounters Date Type Specialty Care Team Description 07/26/2022 Appointment Radiology. Dion Ramirez MD [address] [place], [place] [address] Liliana Wright MD [address] [facility] [address] [place], [place] [address] 07/26/2022 Office Visit Maternal and Dion Ramirez MD [address] [place] [address] Medicine Liliana Wright MD [address] [facility] [address] [place], [place] [phone] 08/13/2022 Appointment Cardiology Dion Ramirez MD [address] [place] [address] (Wo rk) documented as of this encounter Procedures Procedure Name Priority Date/Time Associated Comments Diagnosis [facility] US COMPREHENSIVE Routine 07/05/2022 10:54 relate d Results for this SINGLE AM SUPERVISOR CONTINUOUS WELD PIPE MILL condition, procedure are i n antepartum the results section. documented in this encounter Results [facility] US Comprehensive Single (07/05/2022 10:54 AM SUPERVISOR CONTINUOUS WELD PIPE MILL) Anatomical Region Laterality Modality Ultrasound Specimen (Source) Anatomical Collection Method Collection Time Re ceived Time Location / / Volume Laterality 07/05/2022 10:00 AM SUPERVISOR CONTINUOUS WELD PIPE MILL Impressions 07/05/2022 11:18 AM SUPERVISOR CONTINUOUS WELD PIPE MILL IMPRESSION 1) Sonographic biometry agrees with gest [...] for aneuploidy seen. Narrative 07/05/2022 11:18 AM SUPERVISOR CONTINUOUS WELD PIPE MILL Comprehensive Pat. Name: BEATRIZ APARICIO Study Date: 07/05 10:00am Pat. NO: [id number] Referring ??MD: KADEN LANG Site: [facility] Section Gang Worker: Brandon Cespedes RDMS : 1995 Age: 26 INDICATION Type 2 Diabetes Mellitus. Prior preeclam psia - delivery . METHOD Transabdominal ultrasound examination. V iew: Suboptimal view: limited by maternal body habitus. Suboptimal view: limited by position Wolfe . Number of fetuses: 1 DATING ? Date ?Details ?Gest. age ?PAYTON LMP ?02/26/2022 ? 18 w + 3 d ? 12/03/2022 Prior assessment ? 9/ ? GA: 8 w + 3 d [...] 0 lb 8 ?oz EFW by ?Hadlock ([id number]) Head / Face / Neck Biometry: Unpaid Intern ? 4.8 ? mm CM ?3.6 ? [...] arch view. Ductal arch view. 3-vessel view. 0-kwccyl-kobdwyn view. Abdomen ? Cord insertion. Extremities / Skeleton ?Rig ht foot. Gender: female. MATERNAL STRUCTURES Cervix ?Visualized ? Appearance: Appears Closed ? Approach - Transabdominal: Cervical length 32.0 mm Right Ovary ?Visualized Left Ovary ?Visualized RECOMMENDATION We discussed the findings on today's ult rasound with the patient. The patient is scheduled to return to [facility] in 3 weeks to reassess anatomy and growth. Your patient has been scheduled for a [facility] echocardiogram with Pediatric Cardiology. A copy of that consultation will be forwarded to you separately. Return to primary provider for continued care. Thank-you for the opportunity to partici jameson in the care of this patient. If you have questions regarding today's evaluation or if we can be of further service, please contact the Maternal- Medicine Center. anomalies may be present but not detected Procedure Note Dion Ramirez MD - 07/05/2022Forma tting of this note might be different from the original. Comprehensive Pat. Name:Tamera APARICIO Date:07/05/20 10:00am Pat. NO: [id number] MD:REMINGTON ANDRADE [facility] Ber[facility] :1995Age:26 INDICATION Type 2 Diabetes Mellitus. [...] 0 lb 8 oz EFW by Hadlock ([id number]-FL) Head / Face / Neck Biometry: Unpaid Intern 4.8 mm CM 3.6 mm Nasal bone [...] view. Ductal arch view. 3- vessel view. 7-rwjasu-tiyuinj view. Abdomen Cord insertion. Extremities / Skeleton Right foot. Gender: female. MATERNAL STRUCTURES Cervix Visualized Appearance: Appears Closed Approach - Transabdominal: Cervical hanna gth 32.0 mm Right Ovary Visualized Left Ovary Visualized RECOMMENDATION We discussed the findings on today's [facility] rasound with the patient. The patient is scheduled to return to [facility] in 3 weeks to reassess anatomy and growth. Your patient has been scheduled for a [facility] echocardiogram with Pediatric Cardiology. A copy of [...] 5) No markers for aneuploidy seen. Remington Lang MD [facility] US ORDERABLES documented in this encounter Visit Diagnoses Diagnosis related condition, antepartum documented in this encounter Care Teams Assistant Professor Of Forestry Relationship Specialty Start Date End Date No Ref-Primary, PCP - General 04/29/22 Physician MD Jeanette Endocrinology, 08/29/21 MD Hermelinda Diabetes, and [address] [address] Radha Reid Endocrinology 09/09/21 MD Hermelinda Provider [address] [phone] Remington Lang Assigned OBGYN Provider 05/18/22 MD Gianni [address] [place] [address] documented as of this encounter
--- OUTSIDE RECORDS SUMMARY | 2022-07-12 20:19 | XMS_ITS | Encounter Summary ---
:1995 Author Organization [place] Address [address] [place] [address] Care Team Providers Name Role Phone Hermelinda Reid MD Unavailable [phone] Hermelinda Reid MD Unavailable [phone] No Ref-Primary, Physician Primary Care Provider [phone] Lore Son MD Unavailable [phone] Reason for Visit Reason Comments Ultrasound L2-T2DM Encounter Details Date Type Department Care Team Description 06/27/2022 PRE VISIT [facility] Mary Velazquez RN Ultra sound (L2-T2DM) [facility]aternal Medicine [facility] [place] [address] [facility] [address] [place] [address] Social History Tobacco Use Types Packs/Day Years Used Date Smoking Tobacco: Never Smokeless Tobacco: Never Alcohol Use Standard Drinks/Week Comments Not Currently 0 (1 standard drink = 0.6 oz pure alcoho l) Sex Assigned at Date Recorded Female 09/11/2021 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 Dion Ramirez MD [address] [facility] [address] [place], [place] [address] Liliana Wright MD 420 [facility] [address] [place], [place] [address] 07/26/2022 Office Visit Maternal and Dion Ramirez MD [address] [place], [place] [phone] Medicine Liliana Wright MD [address] [facility] [address] [place], [place] [address] 08/13/2022 Appointment Cardiology Dion Ramirez MD [address] [place], [place] [phone] (Wo rk) documented as of this encounter Visit Diagnoses Not on filedocumented in this encounter Care Teams Parts Sales Advisor Relationship Specialty Start Date End Date No Ref-Primary, PCP - General 04/29/22 Physician MD Jeanette Endocrinology, 08/29/21 MD Hermelinda Diabetes, and [address] [place] [address] [facility] Metabolism [address] [place] [address] Radha Reid Endocrinology 09/09/21 MD Hermelinda Provider [address] [place] [address] [facility] [address] [place], [place] [phone] Lore Son Assigned OBGYN Provider 05/18/22 MD Gianni [address] [place], [place] [phone] documented as of this encounter
--- OUTSIDE RECORDS SUMMARY | 2022-07-12 20:19 | XMS_ITS | Encounter Summary ---
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 Site midazolam (Versed) injection 2 mg Given 04/15/2022 8:53 PM CDT 2 mg 2 mg, IV Push, ONCE, 1 dose, On 04/15/22 at 2100 ondansetron (ZOFRAN) injection 4 mg Given 04/15/2022 8:04 PM CDT 4 mg 4 mg, IV Push, ONCE, 1 dose, On Fri04/15/22 at 1999 documented in this encounter Active and Recently Administered Medications Times are shown in CDT. Scheduled Medication Order 04/13/2022 04/14/2022 04/15/2022 midazolam (Versed) injection 2 mg (COMPLETED) 2052 (Given - Provider: Ethel Gonzalez RN) 2 mg, IV Push, ONCE, 1 dose, On Fri04/15/22 at 2100 ondansetron (ZOFRAN) injection 4 mg (COMPLETED) 2003 (Given - Provider: Ethel Gonzalez RN) 4 mg, IV Push, ONCE, 1 dose, On Fri04/15/22 at 1999 documented in this encounter
--- OUTSIDE RECORDS SUMMARY | 2022-07-12 20:19 | XMS_ITS | Encounter Summary ---
:1995 Author Organization [place] Address [address] [place] [address] Care Team Providers Name Role Phone Hermelinda Reid MD Unavailable [phone] Hermelinda Reid MD Unavailable [phone] Ref-Primary, Physician Primary Care Provider [phone] Lore Son MD Unavailable [phone] Reason for Referral Diagnostic Imaging Ultrasound (Routine) - Pending Review Specialty Diagnoses / Procedures Referred By Contact Refer red To Contact Diagnoses Encounter for follow-up ultrasound of anatomy Dion Ramirez MD Procedures MFM US Comprehensive Single F/U [address] [place], [place] [address] Referral ID Status Reason Start Date Expiration Date Visits V isits Requested Authorized [id number] Pending 07/05/2022 07/05/2023 1 1 Review ODUCTION MACHINE LOADER (Routine) - Pending Review Specialty Diagnoses / Procedures Referred By Contact Refer red To Contact Diagnoses with type 2 diabetes mellitus in second trimester Dion Ramirez MD Procedures Echo (TTE) Complete [address] [place], [place] [address] Referral ID Status Reason Start Date Expiration Date Visits V isits Requested Authorized [id number] Pending 07/05/2022 07/05/2023 1 1 Review ODUCTION MACHINE LOADER Reason for Visit Reason Comments Ultrasound L2-T2DM Encounter Details Date Type Department Care Team Description 07/05/2022 Office Visit [facility] Sharon Son MD [address] [place] [address] with type 2 diabetes mellitus in second trimester (Primary Dx); Maternal Dion Ramirez MD [address] [place] [address] Encounter for follow-up ultrasound of [facility] Medicine [facility] [address] [facility] [address] [place] [address] Social History Tobacco Use Types Packs/Day Years Used Date Smoking Tobacco: Never Smokeless Tobacco: Never Alcohol Use Standard Drinks/Week Comments Not Currently 0 (1 standard drink = 0.6 oz pure alcoho l) Sex Assigned at Date Recorded Female 09/11/2021 7:15 AM 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 documented as of this encounter Progress Notes Dion Ramirez MD - 07/05/2022 10:45 AM CST Please see Imaging tab under Chart Review for details of today's US at the [facility]. Dion Ramirez MD Maternal- Medicine ODUCTION MACHINE LOADER documented in this encounter Plan of Treatment Upcoming Encounters Date Type Specialty Care Team Description 07/26/2022 Appointment Radiology. Dion Ramirez MD [address] [place] [address] Liliana Wright MD 420 [facility] [address] [place] [address] 07/26/2022 Office Visit Maternal and Dion Ramirez MD [address] [place], [place] [address] Medicine Liliana Wright MD [address] [facility] [address] [place], [place] [address] 08/13/2022 Appointment Cardiology Dion Ramirez MD [address] [place], [place] [address] (Wo rk) Scheduled Orders Name Type Priority Associated Order Schedule Diagnoses Echo (TTE) Echocardiography Routine with type Expected: Complete 2 diabetes mellitus 08/13/19 23 in second trimester (Approxi mate), Expires: 07/05/2023 [facility] US Comprehensive Imaging Routine Encounter for Expect ed: Single F/U follow-up 07/26/2022 ultrasound of (Approxi mate), anatomy Expires: 07/05/2023 documented as of this encounter Visit Diagnoses Diagnosis with type 2 diabetes mellitus in second trimester - Primary Encounter for follow-up ultrasound of fe quinn anatomy documented in this encounter Care Teams Counter Waitress/Waiter Relationship Specialty Start Date End Date No Ref-Primary, PCP - General 04/29/22 Physician MD Jeanette Endocrinology, 08/29/21 MD Hermelinda Diabetes, and [address] [facility] [address] [facility] Metabolism [address] [place] [address] Radha Reid Endocrinology 09/09/21 MD Hermelinda Provider 420 [facility] [address] [place], [place] [address] Lore Son Assigned OBGYN Provider 05/18/22 MD Gianni [address] [place] [address] documented as of this encounter
--- OUTSIDE RECORDS SUMMARY | 2022-07-12 20:19 | XMS_ITS | Encounter Summary ---
:1995 Author Organization [place] Address [address] [place] [address] Care Team Providers Name Role Phone Hermelinda Reid MD Unavailable [phone] Hermelinda Reid MD Unavailable [phone] Ref-Primary, Physician Primary Care Provider [phone] Lore Son MD Unavailable [phone] Reason for Visit Reason Comments Allied Health Visit Nurse only for [employer] paper work Encounter Details Date Type Department Care Team Description 05/20/2022 Allied Health/Nurse [facility] All ied Health Visit Visit Clinic [place] (Nurse only for 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 documented as of this encounter Last Filed Vital Signs Vital Sign Reading Time Taken Comments Blood Pressure - - Pulse - - Temperature - - Respiratory Rate - - Oxygen Saturation - - Inhaled Oxygen Concentration - - Weight 84.8 kg (187 lb) 05/20/2022 8:47 AM CDT Height - - Body Mass Index 35.33 09/28/2021 10:34 AM CHIEF DIVERSITY OFFICER documented in this encounter Progress Notes Av Mcpherson - 05/20/2022 9:15 AM CDT Patient is here for a nurse only visit. [employer] paperwork filled out. Av Mcpherson CMA documented in this encounter Plan of Treatment Upcoming Encounters Date Type Specialty Care Team Description 07/26/2022 Appointment Radiology. Dion Ramirez MD [address] [place], [place] [address] Liliana Wright MD 420 [facility] [address] [place], [place] [address] 07/26/2022 Office Visit Maternal and Dion Ramirez MD [address] [place], [place] [address] [phone] Liliana Wright MD [address] [address] 08/13/2022 Appointment Cardiology Dion Ramirez MD [address] [place], [place] [address] (Wo rk) documented as of this encounter Procedures Procedure Name Priority Date/Time Associated Diagnosis Comme nts [facility] Routine 05/20/2022 8:52 AM Supervision of high Re sults for this NON-INVASIVE CDT risk , procedure ar e in SCREENING antepartum the resul ts section. documented in this encounter Results [facility] Non-Invasive Screening (05/20/2022 8:52 AM CDT) [facility] Method Time Signature See Scanned [facility] 05/31/2022 [facility] Result NON-INVASIVE 3:34 PM CDT SCREENING-Sc anned Specimen Anatomical Collection Method / Collection Time Recei iva Time (Source) Location / Volume Laterality Blood VENOUS BLOOD / Venipuncture / 05/20/2022 8:52 05/20/20 8:52 Unknown Unknown AM CDT AM CDT Narrative This result has an attachment that is no t available. Lore Son MD LAB - BLOOD ORDERABLES Performing Organization Address City/State/ZIP Code Phon e Number [facility] [address] [place] [address] documented in this encounter Visit Diagnoses Diagnosis Supervision of high risk , ante - Primary documented in this encounter Care Teams Food Preparation Supervisor Relationship Specialty Start Date End Date No Ref-Primary, PCP - General 04/29/22 Physician MD Jeanette Endocrinology, 08/29/21 MD Hermelinda Diabetes, and [address] [facility] [address] [facility] Metabolism [address] [place] [address] Radha Reid Endocrinology 09/09/21 MD Hermelinda Provider [address] [place] [address] [address] Lore Son Assigned OBGYN Provider 05/18/22 MD Gianni [address] [place] [address] documented as of this encounter
--- OUTSIDE RECORDS SUMMARY | 2022-07-12 20:19 | XMS_ITS | Encounter Summary ---
:1995 Author Organization [place] Address [address] [facility] 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 documented as of this encounter Plan of Treatment Upcoming Encounters Date Type Specialty Care Team Description 07/26/2022 Appointment Radiology. Dion Ramirez MD [address] [facility] [address] [place], [place] [address] Liliana Wright MD 420 [facility] [address] [place], [place] [address] 07/26/2022 Office Visit Maternal and Dion Ramirez MD [address] [place], [place] [address] Medicine Liliana Wright MD [address] [facility] [address] [facility] [address] [place], [place] [address] 08/13/2022 Appointment Cardiology Dion Ramirez MD [address] [place] [address] (Wo rk) documented as of this encounter Visit Diagnoses Not on filedocumented in this encounter Care Teams Serging Machine Operator Automatic Relationship Specialty Start Date End Date No Ref-Primary, PCP - General 04/29/22 Physician MD Jeanette Endocrinology, 08/29/21 MD Hermelinda Diabetes, and [address] [facility] Metabolism [address] [place] [address] Radha Reid Endocrinology 09/09/21 MD Hermelinda Provider [address] [facility] [address] [place] [address] Lore Son Assigned OBGYN Provider 05/18/22 MD Gianni [address] [place] [address] documented as of this encounter
--- OUTSIDE RECORDS SUMMARY | 2022-07-12 20:20 | XMS_ITS | Encounter Summary ---
:1995 Author Organization [place] Address [address] [place] [address] Care Team Providers Name Role Phone Hermelinda Reid MD Unavailable Hermelinda Reid MD Unavailable [phone] Dalia Ervin MD Unavailable No Ref-Primary, Physician Primary Care Provider [phone] Reason for Visit Diagnostic Imaging Ultrasound (Routine) - Pending Review Specialty Diagnoses / Procedures Referred By Contact Refer red To Contact Diagnoses test positive Dalia Ervin MD Procedures US OB <14 Weeks w Transvaginal Single [address] [place], [place] [address] Referral ID Status Reason Start Date Expiration Date Visits V isits Requested Authorized [id number] Pending 04/19/2022 04/19/2023 1 1 Review Encounter Details Date Type Department Care Team Description 04/29/[address] 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 documented as of this encounter Plan of Treatment Upcoming Encounters Date Type Specialty Care Team Description 07/26/2022 Appointment Radiology. Dion Ramirez MD [address] [place], [place] [address] Liliana Wright MD 420 [facility] [address] [place], [place] [address] 07/26/2022 Office Visit Maternal and Dion Ramirez MD [address] [place] [address] Medicine Liliana Wright MD 420 [facility] [address] [place] [address] 08/13/2022 Appointment Cardiology Dion Ramirez MD [address] [place] [address] (Wo rk) documented as of this encounter Procedures Procedure Name Priority Date/Time Associated Comments Diagnosis US OB <14 WEEKS WITH Routine 04/29/2022 10:58 test R esults for this TRANSVAGINAL SINGLE AM CDT positive procedur e are in the results section. documented in this encounter Results US OB <14 Weeks w Transvaginal Single (04/29/2022 [...] up, but clinical correlation is s uggested. Lore Son MD FACOG Obstetrics and Gynecology [facility] Narrative 04/29/2022 11:54 AM CDT [facility] ULTRASOUND - OB < 14 Weeks- Transabdomin al and Transvaginal ?? Referring Provider: Dalia Ervin MD ?? INDICATIONS FOR ULTRASOUND: OB History: Previous Present Conditions: Initial S&D (0-17 we eks) ?? CLINICAL INFORMATION ?? LMP: 26 Feb 2022 - sure EDC: 03 Dec 2022 ?? EGA: 8 w 6 d ? Dalia Ervin MD IMG US ORDERABLES documented in this encounter Visit Diagnoses Diagnosis test positive examination or test, positive result documented in this encounter Care Teams Medical Collections Representative Relationship Specialty Start Date End Date No Ref-Primary, PCP - General 04/29/22 Physician MD Jeanette Endocrinology, 08/29/21 MD Hermelinda Diabetes, and [address] [place] [address] [facility] Metabolism [address] [place] [address] Radha Reid Endocrinology 09/09/21 MD Hermelinda Provider [address] [facility] [address] [place], [place] [phone] Dalia Ervin Assigned OBGYN Provider 10/07/21 MD [place] [address] [place], [place] [phone] documented as of this encounter
--- OUTSIDE RECORDS SUMMARY | 2022-07-12 20:20 | XMS_ITS | Encounter Summary ---
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 documented as of this encounter Plan of Treatment Upcoming Encounters Date Type Specialty Care Team Description 07/26/2022 Appointment Radiology. Dion Ramirez MD [address] [place], [place] [address] Liliana Wright MD 420 [facility] [address] [place], [place] [address] 07/26/2022 Office Visit Maternal and Dion Ramirez MD [address] [place], [place] [address] Medicine Liliana Wright MD [address] [facility] [address] [place], [place] [address] 08/13/2022 Appointment Cardiology Dion Ramirez MD [address] [place] [address] (Wo rk) documented as of this encounter Visit Diagnoses Not on filedocumented in this encounter Care Teams Whey Department Operator Relationship Specialty Start Date End Date MD Jeanette Endocrinology, 08/29/21 MD Hermelinda Diabetes, and [address] [facility] Metabolism [address] [place], [place] [phone] Radha Reid Endocrinology 09/09/21 MD Hermelinda Provider 420 [facility] [address] [place], [place] [address] Lurdes Echeverria MD Assigned OBGYN Provider 09/23/21 10/06/[address] [place], [place] [phone] documented as of this encounter
--- OUTSIDE RECORDS SUMMARY | 2022-07-12 20:20 | XMS_ITS | Encounter Summary ---
:1995 Author Organization [facility] Address [address] [place] [address] Care Team Providers Name Role Phone Hermelinda Reid MD Unavailable [phone] Hermelinda Reid MD Unavailable [phone] Lurdes Echeverria MD Unavailable Reason for Visit Reason Comments Complications Encounter Details Date Type Department Care Team Description 09/25/2021 Emergency [facility] Ashly Pitts MD Dizziness; [facility] Emergency Dep t [facility]Y PHYSIC[facility] Palpitations; [address] [place] Anemia, unspecified type [place], [place] [address] [address] [place] [address] [place] [address] (Wo rk) Social History Tobacco Use Types Packs/Day Years Used Date Smoking Tobacco: Never Smokeless Tobacco: Never Alcohol Use Standard Drinks/Week Comments Not Currently 0 (1 standard drink = 0.6 oz pure alcoho l) Sex Assigned at Date Recorded Female 09/11/2021 7:15 AM SOLAR SYSTEM INSTALLER COVID-19 Exposure Response Date Recorded In the last month, have you been in contact with No / Unsure 09/25/2021 1:59 PM SOLAR SYSTEM INSTALLER someone who was confirmed or suspected to have Coronavirus / COVID-19? documented as of this encounter Last Filed Vital Signs Vital Sign Reading Time Taken Comments Blood Pressure 121/75 09/25/2021 4:00 PM SOLAR SYSTEM INSTALLER Pulse 116 09/25/2021 4:00 PM SOLAR SYSTEM INSTALLER Temperature 36.7 ??C (98 ??F) 09/25/2021 2:08 PM SOLAR SYSTEM INSTALLER Respiratory Rate 27 09/25/2021 4:00 PM SOLAR SYSTEM INSTALLER Oxygen Saturation 100% 09/25/2021 4:00 PM SOLAR SYSTEM INSTALLER Inhaled Oxygen Concentration - - Weight - - Height - - Body Mass Index - - documented in this encounter Discharge Instructions Discharge InstructionsAshly Pitts MD - 09/25/2021 6:31 PM CST Your [facility] checker [facility] should be reaching out to you in the next 24 hours. They will follow-up with you later this week. Return to the ED for worsening of your symptoms. Discharge Instructions Dizziness (Lightheaded) Today you were seen for dizziness. Dizziness can be caused by many things and it can be very difficult to determine the cause of dizziness. At this time, your provider has found no signs that your dizziness is due to a serious or life- threatening condition. However, sometimes there is a serious problem that does not show up right away, and it is important for you to follow up with your regular provider as instructed. Generally, every Emergency Department visit should have a follow-up clinic visit with either a primary or a specialty clinic/provider. Please follow-up as instructed by your emergency provider today. Return to the Emergency Department if: You pass out (fainting or falling out), especially during exercise. You develop chest pain, chest pressure or difficulty breathing. Your feel an irregular heartbeat. You have excessive vaginal bleeding, or blood in your stool or vomit (throw up). You have a high fever. Your symptoms get worse or more frequent. If when you begin to feel dizzy or lightheaded, it is important to sit down or lay down immediately to prevent injury from falling. If you were given a prescription for medicine here today, be sure to read all of the information (including the package insert) that comes with your prescription. This will include important information about the medicine, its side effects, and any warnings that you need to know about. The pharmacist who fills the prescription can provide more information and answer questions you may have about the medicine. If you have questions or concerns that the pharmacist cannot address, please call or return to the Emergency Department. Remember that you can always come back to the Emergency Department if you are not able to see your regular provider in the amount of time listed above, if you get any new symptoms, or if there is anything that worries you. R SYSTEM INSTALLER documented in this encounter Medications at Time of Discharge Medication Sig Dispensed Refills Start Date End Date acetaminophen (TYLENOL) Take 1-2 tablets 30 tablet 0 2021 500 MG (500-1,000 mg) by tabletIndications: S/P mouth every 6 hours as needed for mild pain insulin aspart (NOVOLOG Inject 5 Units 15 mL 0 09/24/19 PEN) 100 UNIT/ML Subcutaneous 3 times penIndications: S/P daily (before meals) insulin NPH 100 UNIT/ML Inject 15 Units 15 mL 0 022 injectionIndications: Subcutaneous every S/P morning (before breakfast) insulin NPH 100 UNIT/ML Inject 10 Units 15 mL 0 022 injectionIndications: Subcutaneous daily S/P (with dinner) ibuprofen Take 1 tablet (600 mg) 30 tablet 0 09/24/2021 (ADVIL/MOTRIN) 600 MG by mouth every 6 hours tabletIndications: S/P as needed for mild pain oxyCODONE (ROXICODONE) Take 1 tablet (5 mg) 12 tablet 0 05/09/2022 5 MG tabletIndications: by mouth every 6 hours S/P as needed for breakthrough pain SENNA-docusate sodium Take 1-2 tablets by 60 tablet 0 09/2405/09/2022 (SENNA S) 8.6-50 MG mouth 2 times daily tabletIndications: S/P documented as of this encounter ED Notes Diana Avery RN - 09/25/2021 2:06 PM CST Pt had emergent on Thursday 09/21 because of pre-eclampsia; discharged yesterday. Today pt was visiting child in the NICU when she felt suddenly dizzy, unwell, and felt her heart pounding. R SYSTEM INSTALLER Ashly Pitts MD - 09/25/2021 1:58 PM CST History Chief Complaint: Complications The history is provided by the patient and a significant other. Valery Scott is a 26 year old female with history of type II diabetes mellitus who presents after anepisode of dizziness and palpitations as she was walking to visit her baby in the NICU earlier today. She describes her palpitations as feeling like her heart is racing. She had an emergent section on 09/21, 4 days ago, a she reports that she had a seizure as well as pre-eclampsia. Arsen was delivered at 34 weeks and has been staying in the NICU. She went home yesterday, and since then, she reports that she has felt very fatigued and dizzy. Valery additionally endorses abdominal pain, diarrhea, shortness of breath, chills, and vaginal bleeding which has been bright red or pink in color but has been decreasing. She has been taking ibuprofen and Tylenol for pain management, has been eating and drinking well, and has been pumping. She denies chest pain, vomiting, headaches, fever. She reports that her blood sugar levels have been normal, and her last recorded level was 93 earlier today. Review of Systems Constitutional: Positive for chills and fatigue. Negative for appetite change and fever. Respiratory: Positive for shortness of breath. Cardiovascular: Positive for palpitations. Negative for chest pain. Gastrointestinal: Positive for abdominal pain and diarrhea. Negative for vomiting. Genitourinary: Positive for vaginal bleeding. Neurological: Positive for dizziness. Negative for headaches. All other systems reviewed and are negative. Allergies: The patient has no known allergies. Medications: Insulin Roxicodone Senna Metformin Past Medical History: Type II diabetes mellitus Hypertension Pre-eclampsia Oligomenorrhea Dermatitis Obesity Hyperglycemia Parotid mass Heart murmur Past Surgical History: section x2 Family History: Father: diabetes Sister: asthma Social History: The patient presents to the ED with her boyfriend. The patient presents to the ED via car. Physical Exam Patient Vitals for the past 24 hrs: BP Temp Temp src Pulse Resp SpO2 09/25/21 1600 121/75 -- -- 116 27 100 % 09/25/21 1530 127/77 -- -- 111 10 100 % 09/25/21 1435 -- -- -- 109 (!) 33 99 % 09/25/21 1430 127/79 -- -- -- -- -- 09/25/21 1408 (!) 142/88 98 ??F (36.7 ??C) Temporal (!) 122 14 100 % Physical Exam General: alert, lying comfortably on gurney HENT: mucous membranes moist CV: Tachycardic rate, regular rhythm Resp: normal effort, clear throughout, no crackles or wheezing GI: abdomen soft and nontender, no guarding MSK: no bony tenderness Skin: appropriately warm and dry. Lower abdominal incision is clean, dry, intact. Gely are in place. Extremities: Nonpitting mild bilateral lower extremity edema, calves non-tender Neuro: alert, clear speech, oriented Psych: normal mood and affect Emergency Department Course ECG ECG taken at 1412, ECG read at 1830 Sinus tachycardia Possible left atrial enlargement Cannot rule out anterior infarct, age undetermined Abnormal ECG No significant change as compared to prior, dated 09/21/21. Rate 114 bpm. MT interval 130 ms. QRS duration 74 ms. QT/QTc 326/449 ms. P-R-T axes 51 30 31. Imaging: CT Chest Pulmonary Embolism w Contrast Final Result IMPRESSION: No acute process demonstrated. Report per radiology Laboratory: Labs Ordered and Resulted from Time of ED Arrival to Time of ED Departure COMPREHENSIVE METABOLIC PANEL - Abnormal Result Value Sodium 136 Potassium 3.9 Chloride 105 Carbon Dioxide (CO2) 24 Anion Gap 7 Urea Nitrogen 12 Creatinine 0.29 (*) Calcium 8.5 Glucose 157 (*) Alkaline Phosphatase 94 AST 116 (*) ALT 64 (*) Protein Total 6.6 (*) Albumin 2.4 (*) Bilirubin Total 0.3 GFR Estimate >90 CBC WITH PLATELETS AND DIFFERENTIAL - Abnormal WBC Count 12.2 (*) RBC Count 3.19 (*) Hemoglobin 7.3 (*) Hematocrit 24.7 (*) MCV 77 (*) MCH 22.9 (*) MCHC 29.6 (*) RDW 15.7 (*) Platelet Count 340 % Neutrophils 70 % Lymphocytes 22 % Monocytes 7 % Eosinophils 0 % Basophils 0 % Immature Granulocytes 1 NRBCs per 100 WBC 0 Absolute Neutrophils 8.4 (*) Absolute Lymphocytes 2.7 Absolute Monocytes 0.8 Absolute Eosinophils 0.0 Absolute Basophils 0.0 Absolute Immature Granulocytes 0.2 Absolute NRBCs 0.0 D DIMER QUANTITATIVE - Abnormal D-Dimer Quantitative 0.70 (*) ROUTINE UA WITH MICROSCOPIC REFLEX TO CULTURE - Abnormal Color Urine Yellow Appearance Urine Slightly Cloudy (*) Glucose Urine Negative Bilirubin Urine Negative Ketones Urine Negative Specific [place] Urine 1.033 Blood Urine Large (*) pH Urine 6.0 Protein Albumin Urine 30 (*) Urobilinogen Urine Normal Nitrite Urine Negative Leukocyte Esterase Urine Trace (*) Bacteria Urine Few (*) Mucus Urine Present (*) RBC Urine >182 (*) WBC Urine 16 (*) Squamous Epithelials Urine 4 (*) TROPONIN I - Normal Troponin I High Sensitivity 13 COVID-19 VIRUS (CORONAVIRUS) BY PCR - Normal SARS CoV2 PCR Negative URINE CULTURE Emergency Department Course: Reviewed: I reviewed nursing notes, vitals, past medical history, Care Everywhere Assessments: 1440 I obtained history and examined the patient as noted above. 1622 I rechecked the patient and explained findings. Consults: 1820 Discussed with OB, Dr. Ervin. Can evaluate patient again in 4 days. No need for additional magnesium. Interventions: 1508 NS 1 L IV 1615 NS 1 L IV Disposition: The patient was discharged to home. Impression & Plan Medical Decision Making: Valery Scott is a 26 year old female with history of type II diabetes, postop day 4 status post emergent for eclampsia, who presents with generalized symptoms of palpitations and dizziness. On exam, the patient has a tachycardic heart rate, but is afebrile and has normal oxygen saturation. Her abdominal incision appears to be hearing healing well, and she has a benign abdominal exam. Labs demonstrate slightly elevated AST and ALT, but normal platelet count. The patient is also anemic, though this is stable compared to discharge from the hospital 3 days ago. White blood cell count trend is improving. CT of the chest was obtained, this is negative for evidence of pulmonary embolism, heart failure, or pneumonia. She has been ambulatory in the ED without dizziness. I discussed the case briefly with Dr. Ervin, on-call for obstetrics given the abnormal liver enzymes in the context of recent diagnosis of eclampsia. Given that the patient has already received magnesium, she does not recommendredosing. Blood pressures have been well controlled here in the ED. They will follow up with the patient later this week, otherwise, patient and his significant other instructed to return for worseningsymptoms. Diagnosis: ICD-10-CM 1. Dizziness R42 2. Palpitations R00.2 3. Anemia, unspecified type D64.9 Scribe Disclosure: I, Rosangela Amaya, am serving as a scribe at 2:32 PM on 09/25/2021 to document services personally performed by Ashly Pitts MD based on my observations and the provider's statements to me. Ashly Pitts MD 09/25/21 0557 R SYSTEM INSTALLER documented in this encounter Miscellaneous Notes Result Encounter Note - Chapin Styles RN - 09/25/2021 6:39 PM CST Final urine culture report is negative. Adult Negative Urine culture parameters per protocol: Any # Urogenital single or mixed organism, <10,000 col/ml single organism (cath/midstream), and > 3 organisms (No susceptibilities performed). [facility] Emergency Dept discharge antibiotic prescribed (If applicable): None Treatment recommendations per [facility] ED Lab Result Urine Culture protocol. R SYSTEM INSTALLER documented in this encounter Plan of Treatment Upcoming Encounters Date Type Specialty Care Team Description 07/26/2022 Appointment Radiology. Dion Ramirez MD [address] [place], [place] [id number] Liliana Wright MD [address] [id number] 07/26/2022 Office Visit Maternal and Dion Ramirez MD [address] [place], [place] [address] Medicine Liliana Wright MD [address] [id number] 08/13/2022 Appointment Cardiology Dion Ramirez MD [address] [place] [address] (Wo rk) documented as of this encounter Procedures Procedure Name Priority Date/Time Associated Comments Diagnosis CT CHEST PULMONARY STAT 09/25/2021 5:39 PM Res ults for this EMBOLISM W CONTRAST SOLAR SYSTEM INSTALLER procedur e are in the results section. COVID-19 VIRUS STAT 09/25/2021 3:43 PM Results for this (CORONAVIRUS) BY PCR SOLAR SYSTEM INSTALLER procedu re are in the results section. ROUTINE UA WITH STAT 09/25/2021 3:04 PM Result s for this MICROSCOPIC REFLEX TO SOLAR SYSTEM INSTALLER proced ure are in CULTURE the results section. URINE CULTURE STAT 09/25/2021 3:04 PM Results for this SOLAR SYSTEM INSTALLER procedure are i n the results section. EXTRA HEPARINIZED STAT 09/25/2021 2:42 PM Resu lts for this SYRINGE SOLAR SYSTEM INSTALLER procedure are i n the results section. EXTRA TUBE STAT 09/25/2021 2:42 PM Results f or this SOLAR SYSTEM INSTALLER procedure are i n the results section. EXTRA RED TOP TUBE STAT 09/25/2021 2:42 PM Res ults for this SOLAR SYSTEM INSTALLER procedure are i n the results section. EXTRA BLUE TOP TUBE STAT 09/25/2021 2:42 PM Re sults for this SOLAR SYSTEM INSTALLER procedure are i n the results section. D DIMER QUANTITATIVE STAT 09/25/2021 2:42 PM R esults for this SOLAR SYSTEM INSTALLER procedure are i n the results section. CBC WITH PLATELETS AND STAT 09/25/2021 2:41 PM Results for this DIFFERENTIAL SOLAR SYSTEM INSTALLER procedure are i n the results section. CBC WITH PLATELETS & STAT 09/25/2021 2:41 PM R esults for this DIFFERENTIAL SOLAR SYSTEM INSTALLER procedure are i n the results section. TROPONIN I STAT 09/25/2021 2:41 PM Results f or this SOLAR SYSTEM INSTALLER procedure are i n the results section. COMPREHENSIVE STAT 09/25/2021 2:41 PM Results for this METABOLIC PANEL SOLAR SYSTEM INSTALLER procedure ar e in the results section. EKG 12-LEAD, TRACING STAT 09/25/2021 2:12 PM R esults for this ONLY SOLAR SYSTEM INSTALLER procedure are i n the results section. documented in this encounter Results CT Chest Pulmonary Embolism w Contrast (09/25/2021 5:39 PM SOLAR SYSTEM INSTALLER) Anatomical Region Laterality Modality Chest, SUBRAD CT BODY, UMP CT CHEST Comp uted Tomography Specimen (Source) Anatomical Collection Method Collection Time Re ceived Time Location / / Volume Laterality 09/25/2021 5:26 PM SOLAR SYSTEM INSTALLER Impressions 09/25/2021 5:51 PM SOLAR SYSTEM INSTALLER IMPRESSION: No acute process demonstrated. Narrative 09/25/2021 5:51 PM SOLAR SYSTEM INSTALLER EXAM: CT CHEST PULMONARY EMBOLISM W CONTRAST LOCATION: [facility] DATE/TIME: 09/25/2021 5:26 PM INDICATION: Chest pain. PE suspected, lo w/intermediate probability, positive D-dimer. COMPARISON: None. TECHNIQUE: CT chest pulmonary angiogram during arterial phase injection of IV contrast. Multiplanar reformats and MIP reconstructions were performed. Dose reduction techniques were used. CONTRAST: 68 mL Isovue 370. FINDINGS: ANGIOGRAM CHEST: Pulmonary arteries are normal caliber and negative for pulmonary emboli. Thoracic aorta is negative for dissection. No CT evidence of right heart strain. LUNGS AND PLEURA: No infiltrates or effu sions. MEDIASTINUM/AXILLAE: No adenopathy or an eurysm. CORONARY ARTERY CALCIFICATION: None. UPPER ABDOMEN: No acute findings. MUSCULOSKELETAL: No frankly destructive bony lesions. Procedure Note Laz Purdy MD - 09/25/2021Fo rmatting of this note might be different from the original. EXAM: CT CHEST PULMONARY EMBOLISM W CONT RAST LOCATION: [facility] DATE/TIME: 09/25/2021 5:26 PM INDICATION: Chest pain. PE suspected, lo w/intermediate probability, positive D-dimer. COMPARISON: None. TECHNIQUE: CT chest pulmonary angiogram during arterial phase injection of IV contrast. Multiplanar reformats and MIP reconstructions were performed. Dose reduction techniques were used. CONTRAST: 68 mL Isovue 370. FINDINGS: ANGIOGRAM CHEST: Pulmonary arteries are normal caliber and negative for pulmonary emboli. Thoracic aorta is negative for dissection. No CT evidence of right heart strain. LUNGS AND PLEURA: No infiltrates or effu sions. MEDIASTINUM/AXILLAE: No adenopathy or an eurysm. CORONARY ARTERY CALCIFICATION: None. UPPER ABDOMEN: No acute findings. MUSCULOSKELETAL: No frankly destructive bony lesions. IMPRESSION: No acute process demonstrate d. Ashly Pitts MD IMG CT ORDERABLES Asymptomatic COVID-19 Virus (Coronavirus) by PCR Nasopharyngeal (09/25/2021 3:43 PM SOLAR SYSTEM INSTALLER) Analysis Performed At Patho logist Time Signature SARS CoV2 PCR Negative Negative 09/25/2021 LABORATORY 4:14 PM SOLAR SYSTEM INSTALLER Comment: NEGATIVE: SARS-CoV-2 (COVID-19) RNA not detected, presumed negative. Specimen Anatomical Location / Collection Method Collection Michael e Received Time (Source) Laterality / Volume Swab NASOPHARYNGEAL Non-blood 09/25/2021 3:43 09/25/2021 3:49 STRUCTURE / Unknown Collection / PM SOLAR SYSTEM INSTALLER PM SOLAR SYSTEM INSTALLER Unknown Narrative LABORATORY - 09/25/2021 4:14 PM SOLAR SYSTEM INSTALLER Testing was performed using the amanuel?? SARS-CoV-2 & Influenza A/B Assay on the amanuel?? Delfina?? System. ??This test shoul d be ordered for the detection of SARS-COV-2 in individuals who meet SARS-CoV-2 clini trveor and/or epidemiological criteria. Test performance is unknown in asymptomatic p atients. ??This test is for in vitro diagnostic use under the FDA EUA for lab oratories certified under CLIA to perform moderate and/or high complexity testing. This test has not been FDA cleared or approved. ??A negative test does not rul e out the presence of PCR inhibitors in the specimen or target RNA in concentration below the limit of detection for the assay. The possibility of a false negative shou ld be considered if the patient's recent exposure or clinical presentation sugges ts COVID-19. ??[facility] are certified under the Clinical Laborat ory Improvement Amendments of 1988 (CLIA-88) as qualified to perform moderate and/or high complexity laboratory testing. Ashly Pitts MD LAB - MICRO GENERAL ORDERABL ES Performing Organization Address City/State/[place] [address] Care Lab [address] [facility] (1st floor, no room number) Urine Culture (09/25/2021 3:04 PM SOLAR SYSTEM INSTALLER) Patholo gist Method Time Signature Culture 10,000-50,000 LESLIE 09/26/2021 UU IDD CFU/mL Mixture 10:33 PM SOLAR SYSTEM INSTALLER LABORATORY of urogenital saurav Specimen Anatomical Collection Method Collection Time Receive d Time (Source) Location / / Volume Laterality Urine MID-STREAM URINE Non-blood 09/25/2021 3:04 PM 09/25 3:28 SPECIMEN / Unknown Collection / SOLAR SYSTEM INSTALLER PM SOLAR SYSTEM INSTALLER Unknown Ashly Pitts MD LAB - MICRO GENERAL ORDERABL ES Performing Organization Address City/State/ZIP Code Phon e Number [facility] IDD LABORATORY [facility] [place] [address] Diag. Lab [address] [facility], [address] [facility] LABORATORY [facility] Infectious [place], [place] [phone] Diseases Diagnostic [phone], [facility] Lab (IDDL) [address] [facility], [address] (ABNORMAL) UA with Microscopic reflex to Culture (09/25/2021 3:04 PM SOLAR SYSTEM INSTALLER) [facility] Method Time Signature Color Urine Yellow Colorless, 09/25/2021 LABORATORY Straw, 3:28 PM SOLAR SYSTEM INSTALLER Light Yellow, Yellow Appearance Urine Slightly Clear 09/25/2021 LABORATOR Y Cloudy (A) 3:28 PM SOLAR SYSTEM INSTALLER Glucose Urine Negative Negative 09/25/2021 LABORATORY mg/dL 3:28 PM SOLAR SYSTEM INSTALLER Bilirubin Urine Negative Negative 09/25/2021 LABORATORY 3:28 PM SOLAR SYSTEM INSTALLER Ketones Urine Negative Negative 09/25/2021 LABORATORY mg/dL 3:28 PM SOLAR SYSTEM INSTALLER Specific [place] 1.033 1.003 - 09/25/2021 LABORATOR Y Urine 1.035 3:28 PM SOLAR SYSTEM INSTALLER Blood Urine Large (A) Negative 09/25/2021 LABORATORY 3:28 PM SOLAR SYSTEM INSTALLER pH Urine 6.0 5.0 - 7.0 09/25/2021 LABORATORY 3:28 PM SOLAR SYSTEM INSTALLER Protein Albumin 30 (A) Negative 09/25/2021 LABORATORY Urine mg/dL 3:28 PM SOLAR SYSTEM INSTALLER Urobilinogen Normal Normal, 2.0 09/25/2021 LABORATORY Urine mg/dL 3:28 PM SOLAR SYSTEM INSTALLER Nitrite Urine Negative Negative 09/25/2021 LABORATORY 3:28 PM SOLAR SYSTEM INSTALLER Leukocyte Trace (A) Negative 09/25/2021 LABORATORY Esterase Urine 3:28 PM SOLAR SYSTEM INSTALLER Bacteria Urine Few (A) None Seen 09/25/2021 LABORATORY /HPF 3:28 PM SOLAR SYSTEM INSTALLER Mucus Urine Present (A) None Seen 09/25/2021 [facility] LABORATORY /LPF 3:28 PM SOLAR SYSTEM INSTALLER RBC Urine >182 (H) <=2 /HPF 09/25/2021 [facility] LABORATORY 3:28 PM SOLAR SYSTEM INSTALLER WBC Urine 16 (H) <=5 /HPF 09/25/2021 [facility] LABORATORY 3:28 PM SOLAR SYSTEM INSTALLER Squamous 4 (H) <=1 /HPF 09/25/2021 [facility] LABORATORY Epithelials 3:28 PM SOLAR SYSTEM INSTALLER Urine Specimen Anatomical Collection Method Collection Time Receive d Time (Source) Location / / Volume Laterality Urine MID-STREAM URINE Non-blood 09/25/2021 3:04 PM 09/25 3:11 SPECIMEN / Unknown Collection / SOLAR SYSTEM INSTALLER PM SOLAR SYSTEM INSTALLER Unknown Narrative LABORATORY - 09/25/2021 3:28 PM SOLAR SYSTEM INSTALLER Urine Culture ordered based on laborator y criteria Ashly Pitts MD LAB - URINE ORDERABLES Performing Organization Address City/[facility]/ZIP Code [place] [address] Care Lab [address] [facility] (1st floor, no room number) (ABNORMAL) D dimer quantitative (09/25/2021 2:42 PM SOLAR SYSTEM INSTALLER) [facility] gist Method Time Signature D-Dimer 0.70 (H) 0.00 - 09/25/2021 LABORATORY Quantitative 0.50 3:16 PM SOLAR SYSTEM INSTALLER ug/mL FEU Specimen Anatomical Collection Method / Collection Time Recei iva Time (Source) Location / Volume Laterality Blood STRUCTURE OF RIGHT Venipuncture / 09/25/2021 2:42 02/12/2021 2:46 UPPER LIMB / Unknown PM SOLAR SYSTEM INSTALLER PM SOLAR SYSTEM INSTALLER Unknown Narrative LABORATORY - 09/25/2021 3:16 PM SOLAR SYSTEM INSTALLER This D-dimer assay is intended for use i n conjunction with a clinical pretest probability assessment model to exclude pulmonary embolism (PE) and deep venous thrombosis (DVT) in outpatients suspecte d of PE or DVT. The cut-off value is 0.50 ug/mL FEU. Ashly Pitts MD LAB - BLOOD ORDERABLES Performing Organization Address City/[facility]/ZIP Code [place] [address] Care Lab [address] Lab (1st floor, no room number) Extra Heparinized Syringe (09/25/2021 2:42 PM SOLAR SYSTEM INSTALLER) athologist Signature Hold Specimen [facility] 09/25/2021 [facility] LABORATORY 4:03 PM SOLAR SYSTEM INSTALLER Specimen Anatomical Collection Method / Collection Time Recei iva Time (Source) Location / Volume Laterality Blood, venous STRUCTURE OF RIGHT Venipuncture / 09/25/2021 2:42 2:47 UPPER LIMB / Unknown PM SOLAR SYSTEM INSTALLER PM SOLAR SYSTEM INSTALLER Unknown Ashly Pitts MD LAB - BLOOD ORDERABLES Performing Organization Address City/State/[place] [address] Care Lab [address] Lab (1st floor, no room number) Extra Red Top Tube (09/25/2021 2:42 PM SOLAR SYSTEM INSTALLER) athologist Signature Hold Specimen [facility] 09/25/2021 [facility] LAB[facility]AT[facility] 4:03 PM SOLAR SYSTEM INSTALLER Specimen Anatomical Collection Method / Collection Time Recei iva Time (Source) Location / Volume Laterality Blood STRUCTURE OF RIGHT Venipuncture / 09/25/2021 2:42 02/12/2021 2:46 UPPER LIMB / Unknown PM SOLAR SYSTEM INSTALLER PM SOLAR SYSTEM INSTALLER Unknown Ashly Pitts MD LAB - BLOOD ORDERABLES Performing Organization Address City/[facility]/ZIP [place] [address] Care Lab [address] Lab (1st floor, no room number) Extra Blue Top Tube (09/25/2021 2:42 PM SOLAR SYSTEM INSTALLER) athologist Signature Hold Specimen [facility] 09/25/2021 RH LABORATORY 4:03 PM SOLAR SYSTEM INSTALLER Specimen Anatomical Collection Method / Collection Time Recei iva Time (Source) Location / Volume Laterality Blood STRUCTURE OF RIGHT Venipuncture / 09/25/2021 2:42 02/12/2021 2:46 UPPER LIMB / Unknown PM SOLAR SYSTEM INSTALLER PM SOLAR SYSTEM INSTALLER Unknown Ashly Pitts MD LAB - BLOOD ORDERABLES Performing Organization Address City/[facility]/[place]IP [place] [address] Care Lab [address] Lab (1st floor, no room number) (ABNORMAL) CBC with platelets and differential (09/25/2021 2:41 PM SOLAR SYSTEM INSTALLER) [facility] Method Time Signature WBC Count 12.2 (H) 4.0 - 09/25/2021 [facility] 11.0 2:49 PM SOLAR SYSTEM INSTALLER 10e3/uL RBC Count 3.19 (L) 3.80 - 09/25/2021 [facility] LAB[facility] 5.20 2:49 PM SOLAR SYSTEM INSTALLER 10e6/uL Hemoglobin 7.3 (L) 11.7 - 09/25/2021 [facility] 15.7 g/dL 2:49 PM SOLAR SYSTEM INSTALLER Hematocrit 24.7 (L) 35.0 - 09/25/2021 [facility] 47.0 % 2:49 PM SOLAR SYSTEM INSTALLER MCV 77 (L) 78 - 100 09/25/2021 [facility] LAB[facility] fL 2:49 PM SOLAR SYSTEM INSTALLER MCH 22.9 (L) 26.5 - 09/25/2021 [facility] 33.0 pg 2:49 PM SOLAR SYSTEM INSTALLER MCHC 29.6 (L) 31.5 - 09/25/2021 [facility] LAB[facility] 36.5 g/dL 2:49 PM SOLAR SYSTEM INSTALLER RDW 15.7 (H) 10.0 - 09/25/2021 [facility] 15.0 % 2:49 PM SOLAR SYSTEM INSTALLER Platelet Count 340 150 - 450 09/25/2021 [facility] 10e3/uL 2:49 PM SOLAR SYSTEM INSTALLER % Neutrophils 70 % 09/25/2021 [facility] LAB[facility] 2:49 PM SOLAR SYSTEM INSTALLER % Lymphocytes 22 % 09/25/2021 [facility] LAB[facility] 2:49 PM SOLAR SYSTEM INSTALLER % Monocytes 7 % 09/25/2021 [facility] LAB[facility] 2:49 PM SOLAR SYSTEM INSTALLER % Eosinophils 0 % 09/25/2021 [facility] LAB[facility] 2:49 PM SOLAR SYSTEM INSTALLER % Basophils 0 % 09/25/2021 [facility] LAB[facility] 2:49 PM SOLAR SYSTEM INSTALLER % Immature 1 % 09/25/2021 [facility] Granulocytes 2:49 PM SOLAR SYSTEM INSTALLER NRBCs per 100 0 <1 /100 09/25/2021 [facility] WBC 2:49 PM SOLAR SYSTEM INSTALLER Absolute 8.4 (H) 1.6 - 8.3 09/25/2021 [facility] Neutrophils 10e3/uL 2:49 PM SOLAR SYSTEM INSTALLER Absolute 2.7 0.8 - 5.3 09/25/2021 [facility] Lymphocytes 10e3/uL 2:49 PM SOLAR SYSTEM INSTALLER Absolute 0.8 0.0 - 1.3 09/25/2021 [facility] Monocytes 10e3/uL 2:49 PM SOLAR SYSTEM INSTALLER Absolute 0.0 0.0 - 0.7 09/25/2021 [facility] Eosinophils 10e3/uL 2:49 PM SOLAR SYSTEM INSTALLER Absolute 0.0 0.0 - 0.2 09/25/2021 [facility] Basophils 10e3/uL 2:49 PM SOLAR SYSTEM INSTALLER Absolute 0.2 <=0.4 09/25/2021 [facility] LAB[facility] Immature 10e3/uL 2:49 PM SOLAR SYSTEM INSTALLER Granulocytes Absolute NRBCs 0.0 10e3/uL 09/25/2021 [facility] LABORATORY 2:49 PM SOLAR SYSTEM INSTALLER Specimen Anatomical Collection Method / Collection Time Recei iva Time (Source) Location / Volume Laterality Blood STRUCTURE OF RIGHT Venipuncture / 09/25/2021 2:41 09/11 2:46 UPPER LIMB / Unknown PM SOLAR SYSTEM INSTALLER PM SOLAR SYSTEM INSTALLER Unknown Victor Manuel Caruso PA-C LAB - BLOOD ORDERABLES Performing Organization Address City/[facility]/ZIP Code [place] [phone] Care Lab [address] Lab (1st floor, no room number) Troponin I (09/25/2021 2:41 PM SOLAR SYSTEM INSTALLER) P athologist Signature Troponin I High 13 <54 ng/L 09/25/2021 LABORATORY Sensitivity 3:12 PM SOLAR SYSTEM INSTALLER Comment: This Troponin-I result was obta ined using a Siemens Dimension [place] High Sensitivity Troponin-I assay (TNIH). Eff ective 07/03/21, nine labs/sites in the [facility] switched from a Siemens [place] Contemporary Troponin I assay (CTNI) to a Siemens [place] High-Sensitivity Troponi n I assay (TNIH). Specimen Anatomical Collection Method / Collection Time Recei iva Time (Source) Location / Volume Laterality Blood STRUCTURE OF RIGHT Venipuncture / 09/25/2021 2:41 09/11 2:46 UPPER LIMB / Unknown PM SOLAR SYSTEM INSTALLER PM SOLAR SYSTEM INSTALLER Unknown Victor Manuel Caruso PA-C LAB - BLOOD ORDERABLES Performing Organization Address City/[facility]/ZIP Code [place] [address] Care Lab [address] Lab (1st floor, no room number) (ABNORMAL) Comprehensive metabolic panel (09/25/2021 2:41 PM SOLAR SYSTEM INSTALLER) [facility] Method Time Signature Sodium 136 133 - 144 09/25/2021 LABORATORY mmol/L 3:11 PM SOLAR SYSTEM INSTALLER Potassium 3.9 3.4 - 5.3 09/25/2021 RH LABORATORY mmol/L 3:11 PM SOLAR SYSTEM INSTALLER Chloride 105 94 - 109 09/25/2021 LABORATORY mmol/L 3:11 PM SOLAR SYSTEM INSTALLER Carbon Dioxide 24 20 - 32 09/25/2021 LABORATORY (CO2) mmol/L 3:11 PM SOLAR SYSTEM INSTALLER Anion Gap 7 3 - 14 09/25/2021 LABORATORY mmol/L 3:11 PM SOLAR SYSTEM INSTALLER Urea Nitrogen 12 7 - 30 09/25/2021 LABORATORY mg/dL 3:11 PM SOLAR SYSTEM INSTALLER Creatinine 0.29 (L) 0.52 - 09/25/2021 LABORATORY 1.04 3:11 PM SOLAR SYSTEM INSTALLER mg/dL Calcium 8.5 8.5 - 09/25/2021 LABORATORY 10.1 3:11 PM SOLAR SYSTEM INSTALLER mg/dL Glucose 157 (H) 70 - 99 09/25/2021 LABORATORY mg/dL 3:11 PM SOLAR SYSTEM INSTALLER Alkaline 94 40 - 150 09/25/2021 LABORATORY Phosphatase U/L 3:11 PM SOLAR SYSTEM INSTALLER AST 116 (H) 0 - 45 09/25/2021 LABORATORY U/L 3:11 PM SOLAR SYSTEM INSTALLER ALT 64 (H) 0 - 50 09/25/2021 LABORATORY U/L 3:11 PM SOLAR SYSTEM INSTALLER Protein Total 6.6 (L) 6.8 - 8.8 09/25/2021 LABORATORY g/dL 3:11 PM SOLAR SYSTEM INSTALLER Albumin 2.4 (L) 3.4 - 5.0 09/25/2021 LABORATORY g/dL 3:11 PM SOLAR SYSTEM INSTALLER Bilirubin Total 0.3 0.2 - 1.3 09/25/2021 LABORATORY mg/dL 3:11 PM SOLAR SYSTEM INSTALLER GFR Estimate >90 >60 09/25/2021 LABORATORY mL/min/1. 3:11 PM SOLAR SYSTEM INSTALLER 73m2 Comment: Effective July 31, 2021 eGF Rcr in adults is calculated using the 2020 CKD-EPI creatinine equation which includ es age and gender (Angelika et al., NEJM, DOI: 10.1056/FHAImz0249953) Specimen Anatomical Collection Method / Collection Time Recei iva Time (Source) Location / Volume Laterality Blood STRUCTURE OF RIGHT Venipuncture / 09/25/2021 2:41 09/11 2:46 UPPER LIMB / Unknown PM SOLAR SYSTEM INSTALLER PM SOLAR SYSTEM INSTALLER Unknown Victor Manuel Caruso PA-C LAB - BLOOD ORDERABLES Performing Organization Address City/State/ZIP Code [place] [address] Care Lab [address] Lab (1st floor, no room number) EKG 12-lead, tracing only (09/25/2021 2:12 PM SOLAR SYSTEM INSTALLER) Component Value Ref Range Test Analysis Performed Pathologis t Method Time At Signature Systolic Blood mmHg RADIOLOGY Pressure RESULTS Diastolic Blood mmHg RADIOLOGY Pressure RESULTS Ventricular Rate 114 BPM RADIOLOGY RESULTS Atrial Rate 114 BPM RADIOLOGY RESULTS MT Interval 130 ms RADIOLOGY RESULTS QRS Duration 74 ms RADIOLOGY RESULTS QT 326 ms RADIOLOGY RESULTS QTc 449 ms RADIOLOGY RESULTS P [place] 51 degrees RADIOLOGY RESULTS R AXIS 30 degrees RADIOLOGY RESULTS T [place] 31 degrees RADIOLOGY RESULTS Interpretation Sinus tachycardia RADIOLO GY ECG Possible Left atrial enlargement RESULTS Cannot rule out Anterior infarct , age undetermined Abnormal ECG When compared with ECG of 21-SEP-2021 13:45, (unconfirmed) No significant change was found Confirmed by - EMERGENCY MAE Hewitt PHYSICIAN ([id number]), editorial cartoonist DIANA BETTS ([id number]) on 09/26/2021 7:11:12 AM Specimen Anatomical Collection Method Collection Time Receive d Time (Source) Location / / Volume Laterality 09/25/2021 2:12 PM 7:11 SOLAR SYSTEM INSTALLER AM SOLAR SYSTEM INSTALLER Victor Manuel Caruso PA-C ECG ORDERABLES Performing Organization Address City/State/ZIP Code Phon e Number RADIOLOGY RESULTS documented in this encounter Visit Diagnoses Diagnosis Dizziness Dizziness and giddiness Palpitations Anemia, unspecified type documented in this encounter Administered Medications Inactive Administered Medications - up to 3 most recent administrations Medication Order MAR Action Action Date Dose Rate Site 0.9% sodium chloride New Bag by Other 09/25/2021 4:15 1,000 mLs 2000 mL/hr BOLUS Clinician PM SOLAR SYSTEM INSTALLER Intravenous, 1,000 mL, ONCE, at 2,000 mL/hr, Administer over 30 Minutes, On Fri09/25/21 at 1505, For 1 dose New Bag 09/25/2021 3:08 PM SOLAR SYSTEM INSTALLER 1,000 mLs 2000 mL/hr iopamidol (ISOVUE-370) solution 500 mL Given 09/25/2021 5:31 PM SOLAR SYSTEM INSTALLER 68 mLs 500 mL, Intravenous, ONCE, On 09/25/21 at 1730, For 1 dose sodium chloride 0.9 % bag 500mL for CT scan Given 09/25/2021 5:32 PM SOLAR SYSTEM INSTALLER 83 mLs flush use Intravenous, 100 mL, ONCE, On 09/25/21 at 1730, For 1 dose, This entry is for use by Radiology to intermittently used as a flush in patients receiving a CT scan. documented in this encounter Active and Recently Administered Medications Times are shown in SOLAR SYSTEM INSTALLER. Scheduled Medication Order 09/23/2021 09/24/2021 09/25/2021 0.9% sodium chloride BOLUS (COMPLETED) 1508 (New Bag - Provider: Kristine Russo RN)1615 (New Bag by Other Clinician - Provider: Kristine Russo, ELVIS)1721 (Stopped - Provider: Kristine Russo RN) Intravenous, 1,000 mL, ONCE, at 2,000 mL /hr, Administer over 30 Minutes, On 09/25/21 at 1505, For 1 dose iopamidol (ISOVUE-370) solution 500 mL (COMPLETED) 1731 (Given - Provider: Jimy Araujo) 500 mL, Intravenous, ONCE, On 09/25/21 at 1730, For 1 dose sodium chloride 0.9 % bag 500mL for CT scan flush use (COMPLETED ) 173 (Given - Provider: Jimy Aarujo) Intravenous, 100 mL, ONCE, On Tue 2 at 1730, For 1 dose, This entry is for use by Radiology to intermittently used as a flush in patients receiving a CT scan. documented in this encounter Care Teams Roller Printer Relationship Specialty Start Date End Date MD Jeanette Endocrinology, 08/29/21 MD Hermelinda Diabetes, and [address] [place] [address] [place] [id number] Radha Reid Endocrinology 09/09/21 MD Hermelinda Provider [address] [address] Lurdes Echeverria MD Assigned OBGYN Provider 09/23/21 2 [address] [facility] [address] [place], [place] [address] documented as of this encounter
--- OUTSIDE RECORDS SUMMARY | 2022-07-12 20:20 | XMS_ITS | Encounter Summary ---
:1995 Author Organization [place] Address [facility] 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 documented as of this encounter Plan of Treatment Upcoming Encounters Date Type Specialty Care Team Description 07/26/2022 Appointment Radiology. Dion Ramirez MD [address] [facility] [address] [place], [place] [phone] Liliana Wright MD 420 [facility] [address] [place], [place] [address] 07/26/2022 Office Visit Maternal and Dion Ramirez MD [address] [place] [address] [place], [place] [address] Medicine Liliana Wright MD [address] [facility] [address] [facility] [address] [place], [place] [address] 08/13/2022 Appointment Cardiology Dion Ramirez MD [address] [place] [address] (Wo rk) documented as of this encounter Visit Diagnoses Not on filedocumented in this encounter Care Teams Electric Shaver Mechanic Relationship Specialty Start Date End Date No Ref-Primary, PCP - General 04/29/22 Physician MD Jeanette Endocrinology, 08/29/21 MD Heremlinda Diabetes, and [address] [facility] Metabolism [address] [place] [address] Radha Reid Endocrinology 09/09/21 MD Hermelinda Provider [address] [facility] [address] [place] [address] Dalia Ervin Assigned OBGYN Provider 10/07/21 [place] [address] [address] [place], [place] [phone] documented as of this encounter
--- OUTSIDE RECORDS SUMMARY | 2022-07-12 20:20 | XMS_ITS | Encounter Summary ---
:1995 Author Organization [place] Address [address] [place] [address] Care Team Providers Name Role Phone Hermelinda Reid MD Unavailable [phone] Hermelinda Reid MD Unavailable [phone] Lurdes Echeverria MD Unavailable Reason for Referral Care Coordination (Routine: Next available opening) - Pending Review Specialty Diagnoses / Procedures Referred By Contact Refer red To Contact Diagnoses Other specified counseling Valeria Bey MD [address] [place] [address] Referral ID Status Reason Start Date Expiration Date Visits V isits Requested Authorized [id number] Pending 09/25/2021 09/25/2022 1 1 Review ING BOAT MATE Encounter Details Date Type Department Care Team Description 09/25/2021 Orders Only [facility] Valeria Bey MD Other specified Care Coordination [address] counseling [address] [place] [phone] Social History Tobacco Use Types Packs/Day Years Used Date Smoking Tobacco: Never Smokeless Tobacco: Never Alcohol Use Standard Drinks/Week Comments Not Currently 0 (1 standard drink = 0.6 oz pure alcoho l) Sex Assigned at Date Recorded Female 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 documented as of this encounter Plan of Treatment Upcoming Encounters Date Type Specialty Care Team Description 07/26/2022 Appointment Radiology. Dion Ramirez MD [address] [place] [address] [place], [place] [address] Liliana Wright MD [address] [facility] [address] [place], [place] [address] 07/26/2022 Office Visit Maternal and Dion Ramirez MD [address] [place] [address] [place], [place] [address] Medicine Liliana Wright MD [address] [facility] [address] [place], [place] [address] 08/13/2022 Appointment Cardiology Dion Ramirez MD [address] [place] [address] (Wo rk) Scheduled Referrals Name Type Priority Associated Diagnoses Order S [facility] Referral Routine: Next Other specified Expected: Discharge - available opening counseling 09/25/2021 Referral to CC (Approximate) , Expires: 09/25/2022 documented as of this encounter Visit Diagnoses Diagnosis Other specified counseling documented in this encounter Care Teams Fabrication Operator Relationship Specialty Start Date End Date MD Jeanette Endocrinology, 08/29/21 MD Hermelinda Diabetes, and [address] [facility] [address] [place] [address] Radha Reid Endocrinology 09/09/21 MD Hermelinda Provider [address] [facility] [address] [place] [address] Lurdes Echeverria MD Assigned OBGYN Provider 09/23/[address] [place] [address] 400 [place], [place] [id number] documented as of this encounter
--- OUTSIDE RECORDS SUMMARY | 2022-07-12 20:20 | XMS_ITS | Encounter Summary ---
:1995 Author Organization [place] Address [facility] [place] [address] Care Team Providers Name Role Phone Hermelinda Reid MD Unavailable [phone] Hermelinda Reid MD Unavailable [phone] Lurdes Echeverria MD Unavailable Dalia Ervin MD Unavailable No Ref-Primary, Physician Primary Care Provider [phone] Lore Son MD Unavailable [phone] Encounter Details Date Type Department Care Team Description 09/25/2021 Documentation Only INTERFACED REPORT Unknown, Provider Social History Tobacco Use Types Packs/Day Years Used Date Smoking Tobacco: Never Smokeless Tobacco: Never Alcohol Use Standard Drinks/Week Comments Not Currently 0 (1 standard drink = 0.6 oz pure alcoho l) Sex Assigned at Date Recorded Female 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 documented as of this encounter Plan of Treatment Upcoming Encounters Date Type Specialty Care Team Description 07/26/2022 Appointment Radiology. Dion Ramirez MD [address] [facility] [address] [facility] [address] [place], [place] [address] Liliana Wright MD 420 [facility] 395 [place], [place] [address] 07/26/2022 Office Visit Maternal and Dion Ramirez MD [address] [place] [address] [place], [place] [address] Medicine Liliana Wright MD [address] [facility] [address] [facility] [address] [place], [place] [address] 08/13/2022 Appointment Cardiology Dion Ramirez MD [address] [place] [address] (Wo rk) documented as of this encounter Visit Diagnoses Not on filedocumented in this encounter Care Teams Asphalt Blender Relationship Specialty Start Date End Date No Ref-Primary, PCP - General 04/29/22 Physician MD Jeanette Endocrinology, 08/29/21 MD Hermelinda Diabetes, and [address] [facility] [address] [facility] Metabolism [address] [place], [place] [phone] Radha Reid Endocrinology 09/09/21 MD Hermelinda Provider [address] [facility] [address] [facility] [address] [place], [place] [address] Lurdes Echeverria MD Assigned OBGYN Provider 09/23/21 10/06/[address] [place] [address] [place], [place] [phone] Dalia Ervin Assigned OBGYN Provider 10/07/21 [place] [address] [place] [address] Lore Son Assigned OBGYN Provider 05/18/22 MD Gianni [address] [place] [address] documented as of this encounter
--- OUTSIDE RECORDS SUMMARY | 2022-07-12 20:20 | XMS_ITS | Encounter Summary ---
:1995 Author Organization [place] Address [address] [place] [address] Care Team Providers Name Role Phone Hermelinda Reid MD Unavailable [phone] Hermelinda Reid MD Unavailable [phone] Dalia Ervin MD Unavailable No Ref-Primary, Physician Primary Care Provider [phone] Reason for Referral Consultation (Routine: Next available opening) - Pending Review Specialty Diagnoses / Procedures Referred By Contact Refer red To Contact Diagnoses Supervision of high risk , antepartum Lore Son [facility] Med MD Gianni [address] [facility] [address] [facility] [address] [place] [address] [place] [address] Phone: Fax: Referral ID Status Reason Start Date Expiration Date Visits V isits Requested Authorized [id number] Pending 05/13/2022 05/13/2023 1 1 Review Reason for Visit Reason Comments Care New visit 10 weeks 6 days DM on Insulin Pap UTD Labs and Urine G/C due Encounter Details Date Type Department Care Team Description 05/13/[address] [facility] Lore Son Ak gh-risk in first trimester (Primary Dx); Visit Clinic Citlali Archer MD Screen for STD (sexually transmitted dis ease); [place] [address] [facility] Supervision of high risk , ante [address] [address] [place], [place] [phone] (Work) [phone] Social History Tobacco Use Types Packs/Day Years Used Date Smoking Tobacco: Never Smokeless Tobacco: Never Tobacco Cessation: Counseling Given: No Alcohol Use Standard Drinks/Week Comments Not Currently 0 (1 standard drink = 0.6 oz pure alcoho l) Sex Assigned at Date Recorded Female 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 Reports doing well. Reports better control of her sugars when it comes to her underlying diabetes mellitus.She shows my a [employer] ronan that shows a Hgb A1C of 5.5 back in January 2022. She admits that in herlast , she did not take her management of her diabetes seriously. She is now established with a PCP who [facility], Dr. Nicole Rubi, who manages her insulin and diabetes mellitus. She states that she would feel more comfortable having this doctor manage her diabetes in and declines re-establishing care with our diabetic educators/dieticians for this .The reason for this is that she felt that the diabetic educators/dieticians in her last were always constantly calling her phone and bothering her and invading on her diet choices and meal times. Currently, she has no complaints. This was unintended, but still desired. She does expresswanting tubal sterilization after this . Today, she reports no issues. States that this is much better tolerated this early in gestation than her last pregnancies. Denies vaginal bleeding and pelvic cramping. Reports normal bladder and bowel functions. ROS: Ten point review of systems was reviewed and negative except the above. OBhx: C-sec x 2; hx of deliveries, both pregnancies complicated by pre- eclampsia, with the second leading to eclampsia and emergency delivery. Gyne: Denies hx of STIs. Does have hx of abnormal Pap smear. Past Medical History: Diagnosis Date ??? Abnormal Pap smear of cervix ??? Anemia ??? Diabetes (H) GDM ??? Hypertension hx pre-eclampsia in first ??? Urinary tract infection ??? Varicella Past Surgical History: Procedure Laterality Date ??? SECTION 2015 ??? SECTION N/A 09/21/2021 Procedure: SECTION; Surgeon: Lore Son MD; Location: [facility] OR Patient Active Problem List Diagnosis Date Noted ??? Pre-eclampsia 09/20/2021 Priority: Medium ??? Elevated blood sugar 08/26/2021 Priority: Medium No Known Allergies acetaminophen (TYLENOL) 500 MG tablet, Take 1-2 tablets (500-1,000 mg) by mouth every 6 hours as needed for mild pain Ferrous Sulfate 324 (65 Fe) MG TBEC, insulin aspart (NOVOLOG PEN) 100 UNIT/ML pen, Inject 5 Units Subcutaneous 3 times daily (before meals) insulin NPH 100 UNIT/ML injection, Inject 15 Units Subcutaneous every morning (before breakfast) insulin NPH 100 UNIT/ML injection, Inject 10 Units Subcutaneous daily (with dinner) Vit-Fe Fumarate-FA ( VITAMINS PLUS PO), insulin NPH 100 UNIT/ML injection, Inject 15 Units Subcutaneous once for 1 dose No current facility-administered medications on file prior to visit. Past Medical History of Father of Baby: No significant medical history. Same FOB as the patient second child. First child was with a different FOB. Physical Exam: BP 128/74 (BP Location: Left arm, Cuff Size: Adult Large) Pulse 101 Wt 85.1 kg (187 lb 9.6 oz) LMP 02/26/2022 (Exact Date) No BMI 35.45 kg/m?? General: Well developed, well nourished female Skin: No lesions, Warm, moist and No cyanosis or pallor HEENT: Atraumatic, normocephalic Neck: Supple,no adenopathy,thyroid normal Chest: Clear to auscultation Heart: Regular rate, rhythm Breasts: deferred Abdomen: Soft, flat, non-tender Extremities: No cyanosis, clubbing, warm and well perfused and No edema Neurological: Mental Status Normal and Station and Gait Normal Perineum: deferred Vulva: deferred Vagina: deferred Cervix: deferred Uterus: deferred Adnexa: deferred Rectum: deferred A/P 26 year old at 10w6d 1. Discussed physician coverage, tertiary support, diet, exercise, weight gain, schedule of visits, routine and indicated ultrasounds, and childbirth education. 2. Options for testing for chromosomal and defects were discussed with the patient including nuchal lucency/blood marker testing in the first trimester and quad screening and/or Level 2ultrasound in the second trimester. We discussed that these are screening tests and not diagnostic tests and that false positives and negatives are a distinct possibility. We discussed that follow up diagnostic testing would include chorionic villus sampling or amniocentesis depending on gestational age. We also reviewed NIPT/cell free DNA screening, and patient elects to proceed with this. 3. Type 2 Diabetes mellitus -- currently on insulin and is being managed by her PCP -- I emphasized the importance of optimal control of her diabetes and that the best way to achieve this would be to establish care with our diabetic educators and more importantly an windows desktop engineer, so as to best avoid maternal and morbidity and mortality associated with uncontrolled diabetes in -- I pointed out that her PCP may not be comfortable with management of her diabetes in , and informed patient to check with PCP if this is the case -- again, despite this counseling, patient remains head strong in wanting to manage her diabetes [place] fit with the help of her PCP -- when mentioning the need for ultrasound surveillance of her fetus towards the endof her , she asked if the frequency of those visits would be necessary, to which I responded that they are absolutely necessary to ensure that we can monitor the health of her baby; patient conveyed understanding -- will plan to order M anatomy ultrasound 3. Hx of pre-eclampsia, eclampsia with her second -- we reviewed initiating baby aspirin starting at 14w gestation -- will complete the rest of her baseline HELLP labs at her next visit 4. Mode of delivery -- will be repeat at 39w unless otherwise indicated earlier for medical reasons 5. Desires sterilization -- reviewed bilateral salpingectomy at the time of her delivery would be the standard of care for this endeavor -- will sign federal tubal papers later in her 6. labs ordered today. GC, Chlamydia via urine. Pap smear up to date. 7. Vitamins encouraged. 8. RTC in 4 weeks. SAB precautions reviewed Lore Son MD [facility] documented in this encounter Nursing Notes Toshia Tomlinson CMA - 05/13/2022 10:30 AM CDT Chief Complaint Patient presents with ??? Care New visit 10 weeks 6 days DM on Insulin Pap UTD Labs and Urine G/C due Initial BP 128/74 (BP Location: Left arm, Cuff Size: Adult Large) Pulse 101 Wt 85.1 kg (187 lb 9.6 oz) LMP 02/26/2022 (Exact Date) No BMI 35.45 kg/m?? Estimated body mass index is 35.45 kg/m?? as calculated from the following: Height as of 09/28/21: 1.549 m (5' 1). Weight as of this encounter: 85.1 kg (187 lb 9.6 oz). BP completed using cuff size: large Questioned patient about current smoking habits. Pt. has never smoked. The following HM Due: NONE +Nausea +Invitae and NPN Labs today Toshia Tomlinson CMA on 05/13/2022 at 10:08 AM documented in this encounter Plan of Treatment Upcoming Encounters Date Type Specialty Care Team Description 07/26/2022 Appointment Radiology. Dion Ramirez MD [address] [place], [place] [address] Liliana Wright MD [address] [facility] [address] [place], [place] [address] 07/26/2022 Office Visit Maternal and Dion Ramirez MD [address] [place] [address] Medicine Liliana Wright MD [address] [facility] [address] [place], [place] [address] 08/13/2022 Appointment Cardiology Dion Ramirez MD [address] [place] [address] (Wo rk) Scheduled Orders Name Type Priority Associated Diagnoses Order S chedule [facility] Non-Invasive Lab Routine Supervision of high risk Expected: 05/13/2022 Screening , antepartum (Approximate), Expires: 2022 Scheduled Referrals Name Type Priority Associated Diagnoses Order S chedule Mat Med Ctr Referral Routine: Next Supervision of high Ex pected: Referral - available opening risk , 022 antepartum (Approximate), Expires: 11/09/2022 documented as of this encounter Procedures Procedure Name Priority Date/Time Associated Diagnosis Comme nts URINE CULTURE Routine 05/13/2022 10:48 Supervision of high Res ults for this AM CDT risk , procedure ar e in antepartum the results section. TYPE AND SCREEN, Routine 05/13/2022 9:50 AM Supervision of hig h Results for this ADULT CDT risk , procedure ar e in antepartum the results section. VARICELLA ZOSTER Routine 05/13/2022 9:50 AM Supervision of hig h Results for this VIRUS ANTIBODY IGG CDT risk , proced ure are in antepartum the results section. RUBELLA ANTIBODY IGG Routine 05/13/2022 9:50 AM Supervision of high Results for this CDT risk , procedure ar e in antepartum the results section. HIV ANTIGEN ANTIBODY Routine 05/13/2022 9:50 AM Supervision of high Results for this COMBO CDT risk , procedure ar e in antepartum the results section. TREPONEMA ABS W Routine 05/13/2022 9:50 AM Supervision of high Results for this REFLEX TO RPR AND CDT risk , procedu re are in TITER antepartum the results section. HEPATITIS C ANTIBODY Routine 05/13/2022 9:50 AM Supervision of high Results for this CDT risk , procedure ar e in antepartum the results section. HEPATITIS B SURFACE Routine 05/13/2022 9:50 AM Supervision of high Results for this ANTIGEN CDT risk , procedure ar e in antepartum the results section. ABO/RH TYPE AND Routine 05/13/2022 9:50 AM Supervision of high Results for this SCREEN CDT risk , procedure ar e in antepartum the results section. CBC WITH PLATELETS Routine 05/13/2022 9:50 AM Supervision of h igh Results for this CDT risk , procedure ar e in antepartum the results section. NEISSERIA Routine 05/13/2022 9:47 AM Screen for STD Results for this GONORRHOEAE PCR CDT (sexually procedure ar e in transmitted disease) the res ults section. CHLAMYDIA Routine 05/13/2022 9:47 AM Screen for STD Results for this TRACHOMATIS PCR CDT (sexually procedure ar e in transmitted disease) the res ults section. documented in this encounter Results Urine Culture Aerobic Bacterial (05/13/2022 10:48 AM CDT) P athologist Signature Culture No Growth LESLIE 05/14/2022 UU IDD 12:39 PM CDT LABORATORY Specimen Anatomical Collection Method Collection Time Receive d Time (Source) Location / / Volume Laterality Urine MID-STREAM URINE Non-blood 05/13/2022 10:48 022 SPECIMEN / Unknown Collection / AM CDT 10:48 AM CDT Unknown Lore Son MD LAB - MICRO GENERAL ORDERA BLES Performing Organization Address City/State/ZIP Code Phon e Number UU IDD LABORATORY [facility] [place] [address] Diag. Lab [address] [facility] [address] [place] Building, Room [address] Adult Type and Screen (05/13/2022 9:50 AM CDT) [facility] Method Time Signature ABO/RH(D) O POS 05/12/2022 BLOOD 7:00 PM CDT BANK Antibody Negative Negative 05/12/2022 BLOOD Screen 7:00 PM CDT BANK SPECIMEN [id number] 05/12/2022 BLOOD EXPIRATION 7:00 PM CDT BANK DATE Specimen Anatomical Collection Method / Collection Time Recei iva Time (Source) Location / Volume Laterality Blood STRUCTURE OF RIGHT Venipuncture / 05/13/2022 9:50 10/0 10/2021 9:51 UPPER LIMB / Unknown AM CDT AM CDT Unknown Lore Son MD LAB - BLOOD BANK TEST ORDE R Performing Organization Address City/State/ZIP Code Phon e Number BLOOD BANK [address] [place] [address] Varicella Zoster Virus Antibody IgG (05/13/2022 9:50 AM CDT) [facility] Signature VZV Tamar IgG 22.8 <135.0 05/13/2022 SPECIALTY Instrument Index 4:13 PM CDT CORE/PROT/EN Value DO Varicella No detectable 05/13/2022 SPECIALTY Zoster antibody. 4:13 PM CDT CORE/PROT/EN Antibody IgG DO Specimen Anatomical Collection Method / Collection Time Recei iva Time (Source) Location / Volume Laterality Blood STRUCTURE OF RIGHT Venipuncture / 05/13/2022 9:50 10/0 10/2021 9:51 UPPER LIMB / Unknown AM CDT AM CDT Unknown Lore Son MD LAB - BLOOD ORDERABLES Performing Organization Address City/State/ZIP Code Phon e Number [facility] SPECIAL[facility] CORE/PROT/ENDO [place] [address] Core/Prot/Endo [address] [facility] Building, Room 3-580 Hepatitis C antibody (05/13/2022 9:50 AM CDT) Patholo gist Method Time Signature Hepatitis C Nonreactive [...] been established for newborns, infants, and children. Lore Son MD LAB - BLOOD ORDERABLES Performing Organization Address City/State/ZIP Code Phon e Number SPECIALTY CORE/PROT/ENDO [place] [address] Core/Prot/Endo [address] [facility] [address] [facility], Room 3-580 Treponema Abs w Reflex to RPR and Titer (05/13/2022 9:50 AM CDT) [facility] Method Time Signature Treponema Nonreactive Nonreactive 05/13/2022 UM SPECIALTY Antibody 4:09 PM CDT CORE/PROT/EN Total DO Specimen Anatomical Collection Method / Collection Time Recei iva Time (Source) Location / Volume Laterality Blood STRUCTURE OF RIGHT Venipuncture / 05/13/2022 9:50 10/0 10/2021 9:51 UPPER LIMB / Unknown AM CDT AM CDT Unknown Lore Son MD LAB - BLOOD ORDERABLES Performing Organization Address City/State/ZIP Code Phon e Number SPECIALTY CORE/PROT/ENDO [place] [facility] [address] Core/Prot/Endo [address] [facility] [address] Building, Room 3-580 Rubella Antibody IgG Quantitative (05/13/2022 9:50 AM CDT) [facility] Time Signature Rubella Tamar IgG 1.01 <0.90 05/13/2022 SPECIALTY Instrument Index 4:16 PM CDT CORE/PROT/END [...] / Unknown AM CDT AM CDT Unknown Lore Son MD LAB - BLOOD ORDERABLES Performing Organization Address City/State/ZIP Code Phon e Number [facility] SPECIAL[facility] CORE/PROT/ENDO [place] [address] Core/Prot/Endo [address] [facility] [address] Building, Room 3-580 HIV Antigen Antibody Combo (05/13/2022 9:50 AM CDT) [facility] Method Time Signature HIV Antigen Nonreactive Nonreactive 05/14/2022 UM SPECIALTY Antibody 12:53 PM CDT CORE/PROT/EN Combo DO Comment: HIV-1 p24 Ag & HIV-1/HIV-2 Ab N ot Detected Specimen Anatomical Collection Method / Collection Time Recei iva Time (Source) Location / Volume Laterality Blood STRUCTURE OF RIGHT Venipuncture / 05/13/2022 9:50 10/0 10/2021 9:51 UPPER LIMB / Unknown AM CDT AM CDT Unknown Lore Son MD LAB - BLOOD ORDERABLES Performing Organization Address City/State/ZIP Code Phon e Number [facility] CORE/PROT/ENDO [place] [address] Core/Prot/Endo 500 [facility], Room 3-580 (ABNORMAL) CBC with platelets (05/13/2022 9:50 AM CDT) [facility] Method Time Signature WBC Count 7.8 4.0 [...] STRUCTURE OF RIGHT Venipuncture / 05/13/2022 9:50 10/10/2021 9:51 UPPER LIMB / Unknown AM CDT AM CDT Unknown Lore Son MD LAB - BLOOD ORDERABLES Performing Organization Address City/State/ZIP Code Phon e Number OX LABORATORY [place], [place] [phone] [facility] [place] [facility] [phone] [place] [address] Lab (no room number, 1st floor of clinic) [facility] [place], [place] [phone] [place] [facility] [address] Lab (no room number, 1st floor of clinic) Hepatitis B surface antigen (05/13/2022 9:50 AM CDT) [facility] gist Method Time Signature Hepatitis B Nonreactive Nonreactive 05/13/2022 [facility] SPECIALTY Surface 4:00 PM CDT CORE/PROT/EN Antigen DO Specimen Anatomical Collection Method / Collection Time Recei iva Time (Source) Location / Volume Laterality Blood STRUCTURE OF RIGHT Venipuncture / 05/13/2022 9:50 1010/2021 9:51 UPPER LIMB / Unknown AM CDT AM CDT Unknown Lore Sno MD LAB - BLOOD ORDERABLES Performing Organization Address City/State/ZIP Code Phon e Number [facility] CORE/PROT/ENDO [place] [address] Core/Prot/Endo [address] [place] [address] [address] Building, Room 3-580 CHLAMYDIA TRACHOMATIS PCR (05/13/2022 9:47 AM CDT) [facility] [employer] Method Time Signature Chlamydia Negative Negative 05/14/2022 [...] Collection / CDT 10:17 AM CDT Unknown Lore Son MD LAB - MICRO GENERAL KAROLINEA HIMANSHUS Performing Organization Address City/[facility] Phon e Number UU IDD LABORATORY [facility] [place] [address] [facility] [address] NEISSERIA GONORRHOEA PCR (05/13/2022 9:47 AM CDT) [facility] [employer] Method Time Signature Neisseria Negative Negative 05/14/2022 UU IDD gonorrhoeae 1:02 PM CDT LABORATORY Comment: Negative for N. gonorrhoeae rRN A by tissue technician mediated amplification. A negative result by tissue technician mediate d amplification does not preclude the [...] Collection / CDT 10:17 AM CDT Unknown Lore Son MD LAB - MICRO GENERAL JORDAN MENG Performing Organization Address City/[facility] Code Phon e Number UU IDD LABORATORY [facility] [place] [place] [address] Diag. Lab 500 [facility], Room [address]297 documented in this encounter Visit Diagnoses Diagnosis High-risk in first trimester - Primary Screen for STD (sexually transmitted dis ease) Screening examination for venereal disea se Supervision of high risk , ante documented in this encounter Care Teams Can Operator Relationship Specialty Start Date End Date No Ref-Primary, PCP - General 04/29/22 Physician MD Jeanette Endocrinology, 08/29/21 MD Hermelinda Diabetes, and [address] [place] [address] [address] Radha Reid Endocrinology 09/09/21 MD Hermelinda Provider [address] [facility] [address] [place], [place] [address] Dalia Ervin Assigned OBGYN Provider 10/07/21 [place] [address] [place], [place] [id number] documented as of this encounter
--- OUTSIDE RECORDS SUMMARY | 2022-07-12 20:20 | XMS_ITS | Encounter Summary ---
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 documented as of this encounter Plan of Treatment Upcoming Encounters Date Type Specialty Care Team Description 07/26/2022 Appointment Radiology. Dion Ramirez MD [address] [place], [place] [address] Liliana Wirght MD 420 [facility] [address] [place], [place] [address] 07/26/2022 Office Visit Maternal and Dion Ramirez MD [address] [place], [place] [address] Medicine Liliana Wright MD [address] [facility] [address] [place], [place] [address] 08/13/2022 Appointment Cardiology Dion Ramirez MD [address] [place] [address] (Wo rk) documented as of this encounter Visit Diagnoses Not on filedocumented in this encounter Care Teams Teleradiologist Relationship Specialty Start Date End Date MD Jeanette Endocrinology, 08/29/21 MD Hermelinda Diabetes, and [address] [facility] Metabolism [address] [place], [place] [phone] Radha Reid Endocrinology 09/09/21 MD Hermelinda Provider 420 [facility] 101 [place], [place] [address] Lurdes Echeverria MD Assigned OBGYN Provider 09/23/21 10/06/[address] [place], [place] [id number] documented as of this encounter
--- OUTSIDE RECORDS SUMMARY | 2022-07-12 20:20 | XMS_ITS | Encounter Summary ---
:1995 Author Organization [place] Address [facility] 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 documented as of this encounter Plan of Treatment Upcoming Encounters Date Type Specialty Care Team Description 07/26/2022 Appointment Radiology. Dion Ramirez MD [address] [facility] [address] [place], [place] [address] Liliana Wright MD 420 [facility] [address] [place], [place] [address] 07/26/2022 Office Visit Maternal and Dion Ramirez MD [address] [place], [place] [address] Medicine Liliana Wright MD [address] [facility] [address] [place], [place] [address] 08/13/2022 Appointment Cardiology Dion Ramirez MD [address] [place] [address] (Wo rk) documented as of this encounter Visit Diagnoses Not on filedocumented in this encounter Care Teams Soap Mixer Relationship Specialty Start Date End Date No Ref-Primary, PCP - General 04/29/22 Physician MD Jeanette Endocrinology, 08/29/21 MD Hermelinda Diabetes, and [address] [facility] Metabolism 101 [place] [address] Radha Reid Endocrinology 09/09/21 MD Hermelinda Provider [address] [facility] [address] [place] [address] Dalia Ervin Assigned OBGYN Provider 10/07/21 [place] [address] [place], [place] [id number] documented as of this encounter
--- OUTSIDE RECORDS SUMMARY | 2022-07-12 20:20 | XMS_ITS | Encounter Summary ---
:1995 Author Organization [place] Address [address] [place] [address] Care Team Providers Name Role Phone Hermelinda Reid MD Unavailable [phone] Hermelinda Reid MD Unavailable [phone] Dalia Ervin MD Unavailable No Ref-Primary, Physician Primary Care Provider [phone] Reason for Referral Diagnostic Imaging Ultrasound (Routine) - Pending Review Specialty Diagnoses / Procedures Referred By Contact Refer red To Contact Diagnoses related condition, antepartum Remington Lang Procedures [facility] MD Gianni [address] [place] [address] Referral ID Status Reason Start Date Expiration Date Visits V isits Requested Authorized [id number] Pending 05/13/2022 05/13/2023 1 1 Review Encounter Details Date Type Department Care Team Description 05/13/2022 Transcribe Orders [facility] Remington Lang related Maternal MD Gianni condition, Medicine Center [address] [facility] antepartum ([place] [address] Dx) [address] [facility] [phone] [address] (Work) [place], [place] [phone] [address] (Fax) [phone] Social History Tobacco Use Types Packs/Day Years Used Date Smoking Tobacco: Never Smokeless Tobacco: Never Alcohol Use Standard Drinks/Week Comments Not Currently 0 (1 standard drink = 0.6 oz pure alcoho l) Sex Assigned at Date Recorded Female 09/11/2021 7:15 AM 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 documented as of this encounter Plan of Treatment Upcoming Encounters Date Type Specialty Care Team Description 07/26/2022 Appointment Radiology. Dion Ramirez MD [address] [place] [address] Liliana Wright MD [address] [address] 07/26/2022 Office Visit Maternal and Dion Ramirez MD [address] [place] [address] Medicine Liliana Wright MD [address] [address] 08/13/2022 Appointment Cardiology Dion Ramirez MD [address] [place] [address] (Wo rk) documented as of this encounter Results MFM US Comprehensive Single (07/05/2022 10:54 AM WAGON DRILLER) Anatomical Region Laterality Modality Ultrasound Specimen (Source) Anatomical Collection Method Collection Time Re ceived Time Location / / Volume Laterality 07/05/2022 10:00 AM WAGON DRILLER Impressions 07/05/2022 11:18 AM WAGON DRILLER IMPRESSION 1) Sonographic biometry agrees with gest [...] for aneuploidy seen. Narrative 07/05/2022 11:18 AM WAGON DRILLER Comprehensive Pat. Name: BEATRIZ APARICIO Study Date: 07/05 10:00am Pat. NO: [id number] Referring ??: KADEN LANG Site: [facility] Fuse Cup Expander: Brandon Cespedes RDMS : 1995 Age: 26 [...] 0 lb 8 ?oz EFW by ?Hadlock ([id number]-FL) Head / Face / Neck Biometry: Box Sealing Machine Catcher ? 4.8 ? mm CM ?3.6 ? [...] arch view. Ductal arch view. 3-vessel view. 9-axrjzh-hcerccj view. Abdomen ? Cord insertion. Extremities / Skeleton ?Rig ht foot. Gender: female. MATERNAL STRUCTURES Cervix ?Visualized ? Appearance: Appears Closed ? Approach - Transabdominal: Cervical length 32.0 mm Right Ovary ?Visualized Left Ovary ?Visualized RECOMMENDATION We discussed the findings on today's ult rasound with the patient. The patient is scheduled to return to [facility] in 3 weeks to reassess anatomy and growth. Your patient has been scheduled for a [facility] echocardiogram with Pediatric Cardiology. A [...] Pat. Name:Tamera APARICIO Date:07/05/20 10:00am Pat. NO: [id number] MD:REMINGTON ANDRADE [facility]AM[facility] Ber[facility] :1995Age:26 INDICATION Type 2 Diabetes Mellitus. [...] 0 lb 8 oz EFW by Hadlock (NPD-[id number]-FL) Head / Face / Neck Biometry: Box Sealing Machine Catcher 4.8 mm CM 3.6 mm Nasal bone [...] view. Ductal arch view. 3- vessel view. 0-sesahk-tkqyozw view. Abdomen Cord insertion. Extremities / Skeleton Right foot. Gender: female. MATERNAL STRUCTURES Cervix Visualized Appearance: Appears Closed Approach - Transabdominal: Cervical hanna gth 32.0 mm Right Ovary Visualized Left Ovary Visualized RECOMMENDATION We discussed the findings on today's [facility] rasound with the patient. The patient is scheduled to return to [facility] in 3 weeks to reassess anatomy and growth. Your patient has been scheduled for a [facility] echocardiogram with Pediatric Cardiology. A [...] markers for aneuploidy seen. Remington Lang MD [facility] US ORDERABLES documented in this encounter Visit Diagnoses Diagnosis related condition, antepartum - Primary related condition, antepartum documented in this encounter Care Teams Solvent Recoverer Relationship Specialty Start Date End Date No Ref-Primary, PCP - General 04/29/22 Physician MD Jeanette Endocrinology, 08/29/21 MD Hermelinda Diabetes, and [address] [place] [address] [id number] Radha Reid Endocrinology 09/09/21 MD Hermelinda Provider 420 [facility] [address] [address] Dalia Ervin Assigned OBGYN Provider 10/07/21 MD Long [address] [place], [place] [id number] documented as of this encounter
--- OUTSIDE RECORDS SUMMARY | 2022-07-12 20:20 | XMS_ITS | Encounter Summary ---
:1995 Author Organization [place] Address [address] [place] [address] Care Team Providers Name Role Phone Hermelinda Reid MD Unavailable Hermelinda Reid MD Unavailable [phone] Dalia Ervin MD Unavailable No Ref-Primary, Physician Primary Care Provider Reason for Visit Reason Comments Care Encounter Details Date Type Department Care Team Description 05/09/2022 Office [facility] History of labor; Visit Clinic [place] Supervision of high risk pre gnancy, antepartum [address] [place] [address] Social History Tobacco Use Types Packs/Day Years Used Date Smoking Tobacco: Never Smokeless Tobacco: Never Alcohol Use Standard Drinks/Week Comments Not Currently 0 (1 standard drink = 0.6 oz pure alcoho l) Sex Assigned at Date Recorded Female 09/11/2021 7:15 AM RN PRACTITIONER COVID-19 Exposure Response Date Recorded In the last 10 days, have you been in contact Unable to asse ss 05/09/2022 1:59 PM CDT with someone who was confirmed or suspected to have Coronavirus/COVID-19? documented as of this encounter Progress Notes Ruthie Jones RN - 05/09/2022 2:00 PM CDT NPN nurse visit done over the phone documented in this encounter Nursing Notes Ruthie Jones RN - 05/09/2022 2:00 PM CDT NPN nurse visit done over the phone. Pt will be given NPN folder and book at her upcoming appt. Discussed optional screening available to assess chromosomal anomalies. Questions answered. Pt advised to call the clinic if she has any questions or concerns related to her . labs will be obtained at her upcoming appt. New visit scheduled on 05/13 with . 10w2d Last pap 05/01/20 Patient supplied answers from flow sheet for: OB Questionnaire. Past Medical History Have you ever recieved care for your mental health? : (P) No Have you ever been in a major accident or suffered serious trauma?: (P) No Within the last year, has anyone hit, slapped, kicked or otherwise hurt you?: (P) No In the last year, has anyone forced you to have sex when you didn't want to?: (P) No Past Medical History 2 Have you ever received a blood transfusion?: (P) No Would you accept a blood transfusion if was medically recommended?: (P) Yes Does anyone in your home smoke?: (!) (P) Yes Is your blood type Rh negative?: No Have you ever breastfed?: (!) (P) Yes Have you been hospitalized for a nonsurgical reason excluding normal delivery?: (P) No Have you ever had an abnormal pap smear?: (!) Yes Past Medical History (Continued) Do you have a history of abnormalities of the uterus?: (P) No Did your mother take DAGOBERTO or any other hormones when she was with you?: No Do you have any other problems we have not asked about which you feel may be important to this ?: (P) No Ruthie Marie RN documented in this encounter Plan of Treatment Upcoming Encounters Date Type Specialty Care Team Description 07/26/2022 Appointment Radiology. Dion Ramirez MD [address] [facility] [address] [place] [address] Liliana Wright MD [address] [place] [address] [facility] [address] [place], [place] [address] 07/26/2022 Office Visit Maternal and Dion Ramirez MD [address] [place] [address] Medicine Liliana Wright MD [address] [place] [address] [facility] [address] [place], [place] [address] 08/13/2022 Appointment Cardiology Dion Ramirez MD [address] [place] [address] (Wo rk) documented as of this encounter Results Urine Culture Aerobic Bacterial [...] Code Phon e Number [facility]D [facility] [place] [address] Diag. Lab 500 [facility], Room D297 Varicella Zoster Virus Antibody IgG (05/13/2022 9:50 AM CDT) Patholo gist Method Time Signature VZV Tamar IgG 22.8 [...] LAB - BLOOD ORDERABLES Performing Organization Address City/[facility]/ZIP [facility] Phon e Number UM SPECIALTY CORE/PROT/ENDO [place] [address] Core/Prot/Endo 500 [facility] [address] Building, Room 3-580 Hepatitis C antibody [...] established for newborns, infants, and children. Lore Sno MD LAB - BLOOD ORDERABLES Performing Organization Address City/[facility] Phon e Number UM SPECIALTY CORE/PROT/ENDO [place], [place] [address] Core/Prot/Endo 500 [facility] J [facility], Room 3-580 Treponema Abs w Reflex to RPR and Titer (05/13/2022 9:50 AM CDT) Patholo gist Method Time Signature Treponema Nonreactive Nonreactive 05/13/2022 UM SPECIALTY Antibody 4:09 PM CDT CORE/PROT/EN Total DO Specimen Anatomical Collection Method / Collection Time Recei iva Time (Source) Location / Volume Laterality Blood STRUCTURE OF RIGHT Venipuncture / 05/13/2022 9:50 10/0 10/2021 9:51 UPPER LIMB / Unknown AM CDT AM CDT Unknown Lore Son MD LAB - BLOOD ORDERABLES Performing Organization Address City/State/[facility] Phon e Number UM SPECIALTY CORE/PROT/ENDO [place], [place] [address] Core/Prot/Endo 500 [facility] [address] Building, Room 3-580 Rubella Antibody IgG Quantitative (05/13/2022 9:50 AM CDT) Analysis Performed At Patho logist Time Signature Rubella Tamar IgG 1.01 <0.90 05/13/2022 SPECIALTY Instrument Index 4:16 PM CDT CORE/PROT/END Value O Rubella Positive 05/13/2022 SPECIALTY Antibody IgG 4:16 PM CDT CORE/PROT/END [...] Code Phon e Number SPECIALTY CORE/PROT/ENDO Specialty [place], [place] [address] Core/Prot/Endo 500 [facility] [address] [facility], Room 3-580 HIV Antigen Antibody Combo (05/13/2022 9:50 AM CDT) Patholo gist Method Time Signature HIV Antigen Nonreactive Nonreactive 05/14/2022 SPECIALTY Antibody 12:53 PM CDT CORE/PROT/EN Combo [...] Code Phon e Number SPECIALTY CORE/PROT/ENDO Specialty [place], [place] [address] Core/Prot/Endo 500 [facility] [address] Building, Room 3-580 (ABNORMAL) CBC with platelets (05/13/2022 9:50 AM CDT) [facility] Method Time Signature WBC Count 7.8 4.0 [...] City/State/ZIP Code Phon e Number OX LABORATORY [facility], [place] [phone] [place] [facility] [address] [place] [address] Lab (no room number, 1st floor of clinic) OX LABORATORY [place], [place] [phone] [facility] [address] [address] Lab (no room number, 1st floor of clinic) Hepatitis B surface antigen (05/13/2022 9:50 AM CDT) [facility] Method Time Signature Hepatitis B Nonreactive Nonreactive [...] e Number UM SPECIALTY CORE/PROT/ENDO [place], [place] [address] Core/Prot/Endo 500 [facility] [address] Building, Room 3-580 documented in this encounter Visit Diagnoses Diagnosis History of labor Personal history of pre-term labor Supervision of high risk , ante documented in this encounter Care Teams Racing Car Driver Relationship Specialty Start Date End Date No Ref-Primary, PCP - General 04/29/22 Physician MD Jeanette Endocrinology, 08/29/21 MD Hermelinda Diabetes, and [address] [facility] Metabolism [address] [place] [phone] Radha Reid Endocrinology 09/09/21 MD Hermelinda Provider 420 [facility] [address] [address] Dalia Ervin Assigned OBGYN Provider 10/07/21 MD Long [address] [place], [place] [phone] documented as of this encounter
--- OUTSIDE RECORDS SUMMARY | 2022-07-12 20:20 | XMS_ITS | Encounter Summary ---
:1995 Author Organization [place] Address Counts include 234 beds at the [facility] [place] [address] Care Team Providers Name Role Phone Hermelinda Reid MD Unavailable [phone] Hermelinda Reid MD Unavailable [phone] Dalia Ervin MD Unavailable No Ref-Primary, Physician Primary Care Provider [phone] Encounter Details Date Type Department Care Team Description 04/29/2022 Travel Social History Tobacco Use Types Packs/Day Years Used Date Smoking Tobacco: Never Smokeless Tobacco: Never Alcohol Use Standard Drinks/Week Comments Not Currently 0 (1 standard drink = 0.6 oz pure alcoho l) Sex Assigned at Date Recorded Female 09/11/2021 7:15 AM TEST CONSULTANT COVID-19 Exposure Response Date Recorded In the last 10 days, have you been in contact with No / Unsu re 04/29/2022 10:26 AM CDT someone who was confirmed or suspected to have Coronavirus/COVID-19? documented as of this encounter Plan of Treatment Upcoming Encounters Date Type Specialty Care Team Description 07/26/2022 Appointment Radiology. Dion Ramirez MD [address] [facility] [address] [place], [place] [address] Liliana Wright MD 420 [facility] [address] [place], [place] [address] 07/26/2022 Office Visit Maternal and Dion Ramirez MD [address] [place], [place] [address] Medicine Liliana Wright MD [address] [place] [address] [facility] [address] [place], [place] [address] 08/13/2022 Appointment Cardiology Dion Ramirez MD [address] [place] [address] (Wo rk) documented as of this encounter Visit Diagnoses Not on filedocumented in this encounter Care Teams Collection Advisor Relationship Specialty Start Date End Date No Ref-Primary, PCP - General 04/29/22 Physician MD Jeanette Endocrinology, 08/29/21 MD Hermelinda Diabetes, and 420 [facility] Metabolism [address] [place] [address] Radha Reid Endocrinology 09/09/21 MD Hermelinda Provider 420 [facility] [address] [place] [address] Dalia Ervin Assigned OBGYN Provider 10/07/21 [place] [address] [facility] [place], [place] [phone] documented as of this encounter
--- OUTSIDE RECORDS SUMMARY | 2022-07-12 20:20 | XMS_ITS | Encounter Summary ---
:1995 Author Organization [place] Address [address] [place] [address] Care Team Providers Name Role Phone Hermelinda Reid MD Unavailable [phone] Hermelinda Reid MD Unavailable [phone] Lurdes Echeverria MD Unavailable Reason for Visit Reason Comments staple removal Encounter Details Date Type Department Care Team Description 09/28/2021 Office Visit [facility] Dalia Ervin S/P C-se ction ([facility] MD Long Dx) [place] [id number] [place] [address] [facility] [address] [place] [address] [place], [place] (Work) [address] [phone] Social History Tobacco Use Types Packs/Day Years Used Date Smoking Tobacco: Never Smokeless Tobacco: Never Tobacco Cessation: Counseling Given: No Alcohol Use Standard Drinks/Week Comments Not Currently 0 (1 standard drink = 0.6 oz pure alcoho l) Sex Assigned at Date Recorded Female 09/11/2021 7:15 AM LINOLEUM INSTALLER COVID-19 Exposure Response Date Recorded In the last month, have you been in contact with No / Unsure 09/28/2021 10:08 AM LINOLEUM INSTALLER someone who was confirmed or suspected to have Coronavirus / COVID-19? documented as of this encounter Last Filed Vital Signs Vital Sign Reading Time Taken Comments Blood Pressure 118/80 09/28/2021 10:34 AM LINOLEUM INSTALLER Pulse - - Temperature - - Respiratory Rate - - Oxygen Saturation - - Inhaled Oxygen Concentration - - Weight 88.5 kg (195 lb) 09/28/2021 10:34 AM LINOLEUM INSTALLER Height 154.9 cm (5' 1) 09/28/2021 10:34 AM LINOLEUM INSTALLER Body Mass Index 36.84 09/28/2021 10:34 AM LINOLEUM INSTALLER documented in this encounter Progress Notes Dalia Ervin MD - 09/28/2021 10:45 AM CST SUBJECTIVE: CC: Patient presents with: staple removal HPI: Valery [place] is a 26 year old female s/p stat CS for presumed eclampsia on 09/21 who presents for a staple removal visit. Baby is discharging from the NICU later today. ?? Pre-operative Diagnosis: 1) Intrauterine at 34w5d 2) Eclampsia 3) Poorly controlled Type 2Diabetes Mellitus 4) History of previous section Post-operative Diagnosis: Viable male , delivered Procedure: Stat activated repeat low transverse section via Pfannenstiel skin incision withtwo layer uterine closure ?? Anesthesia: General endotacheal FRA Score: 2 EBL: 1227 mL ?? IV fluids: Refer to anesthesia records Urine Output: Refer to anesthesia records (yellow clear colored at the end of the procedure) ?? Complications: None Specimen: Placenta Drains: Donovan catheter ?? Findings: Viable male delivered in cephalic presentation at 1503 on 09/21/2021. No nuchal cord. Clear amniotic fluid. Weight 6 lbs 0 oz. Agpar 8 and 9 at 1 and 5 minutes, respectively. Normal appearing uterus, bilateral fallopian tubes and ovaries. No intraperitoneal adhesions noted. Dense fascia to the underlying anterior peritoneum. OBJECTIVE: BP 118/80 (BP Location: Left arm, Patient Position: Chair, Cuff Size: Adult Large) Ht 1.549 m (5' 1) Wt 88.5 kg (195 lb) LMP 01/21/2021 Yes BMI 36.84 kg/m?? Gen: Healthy appearing obese female, tearful about prospect of stable removal, but overall comfortable Incision: intact and well approximated with numerous metal alicia. They were removed without issue,and steri strips placed over the entirety of the incision. There was one small area of step off on the right side of the incision but there was no bleeding or skin pulling apart after removal ASSESSMENT/PLAN: 1. S/P S/p removal of alicia today BP normal Pt tearful with removal of alicia but this was due to anxiety and not pain. Gave reassurance. She was discharged with FOB without incident. Dalia Ervin MD, MPH Obstetrics and Gynecology LEUM INSTALLER documented in this encounter Nursing Notes Shanna Jimenez - 09/28/2021 10:45 AM CST Chief Complaint Patient presents with ??? staple removal Initial BP 118/80 (BP Location: Left arm, Patient Position: Chair, Cuff Size: Adult Large) Ht 1.549 m (5' 1) Wt 88.5 kg (195 lb) LMP 01/21/2021 Yes BMI 36.84 kg/m?? Estimated body mass index is 36.84 kg/m?? as calculated from the following: Height as of this encounter: 1.549 m (5' 1). Weight as of this encounter: 88.5 kg (195 lb). BP completed using cuff size: large Questioned patient about current smoking habits. Pt. has never smoked. The following HM Due: NONE Shanna Jimenez CMA LEUM INSTALLER documented in this encounter Plan of Treatment Upcoming Encounters Date Type Specialty Care Team Description 07/26/2022 Appointment Radiology. Dion Ramirez MD [address] [place], [place] [address] Liliana Wright MD 420 [facility] 395 [place], [place] [address] 07/26/2022 Office Visit Maternal and Dion Ramirez MD [address] [place], [place] [address] [phone] Liliana Wright MD 420 [facility] 395 [place], [place] [address] 08/13/2022 Appointment Cardiology Dion Ramirez MD [address] [place] [address] (Wo rk) documented as of this encounter Visit Diagnoses Diagnosis S/P - Primary Other postprocedural status documented in this encounter Care Teams Respiratory Therapy Aide Relationship Specialty Start Date End Date MD Jeanette Endocrinology, 08/29/21 MD Hermelinda Diabetes, and 420 [facility] Metabolism [address] [place] [address] Radha Reid Endocrinology 09/09/21 MD Hermelinda Provider [address] [place] [address] [facility] [address] [place] [address] Lurdes Echeverria MD Assigned OBGYN Provider 09/23/21 10/06/[address] [place] [address] documented as of this encounter
--- OUTSIDE RECORDS SUMMARY | 2022-07-12 20:20 | XMS_ITS | Encounter Summary ---
:1995 Author Organization [place] Address [address] [place] [address] Care Team Providers Name Role Phone Hermelinda Reid MD Unavailable [phone] Hermelinda Reid MD Unavailable [phone] Dalia Ervin MD Unavailable Reason for Referral Diagnostic Imaging Ultrasound (Routine) - Pending Review Specialty Diagnoses / Procedures Referred By Contact Refer red To Contact Diagnoses test positive Dalia Ervin MD Procedures US OB <14 Weeks w Transvaginal Single [address] [place], [place] [address] Referral ID Status Reason Start Date Expiration Date Visits V isits Requested Authorized [id number] Pending 04/19/2022 04/19/2023 1 1 Review Encounter Details Date Type Department Care Team Description 04/19/2022 Orders Only [facility] Dalia Ervin Pregnanc y test [facility] MD Long positive (Primary Dx) [place] [address] [place], [place] [address] [address] [place], [place] [phone] (Work) [phone] Social History Tobacco Use Types Packs/Day Years Used Date Smoking Tobacco: Never Smokeless Tobacco: Never Alcohol Use Standard Drinks/Week Comments Not Currently 0 (1 standard drink = 0.6 oz pure alcoho l) Sex Assigned at Date Recorded Female 09/11/2021 7:15 AM REED MAKER documented as of this encounter Plan of Treatment Upcoming Encounters Date Type Specialty Care Team Description 07/26/2022 Appointment Radiology. Dion Ramirez MD [address] [place] [address] Liliana Wright MD [address] [place] [address] [facility] [address] [place], [place] [address] 07/26/2022 Office Visit Maternal and Dion Ramirez MD [address] [place] [address] Medicine Liliana Wright MD 420 [facility] 395 [place], [place] [phone] 08/13/2022 Appointment Cardiology Dion Ramirez MD [address] [place] [address] (Wo rk) documented as of this encounter Results US OB <14 Weeks [...] Lore Son MD FACOG Obstetrics and Gynecology [facility] Narrative 04/29/2022 11:54 AM CDT [facility] ULTRASOUND - OB < 14 Weeks- Transabdomin [...] this encounter Visit Diagnoses Diagnosis test positive - Primary examination or test, positive result test positive examination or test, positive result documented in this encounter Care Teams [place]dere[place] Clerk Relationship Specialty Start Date End Date MD Jeanette Endocrinology, 08/29/21 MD Hermelinda Diabetes, and [address] [facility] Metabolism [address] [place] [address] Radha Reid Endocrinology 09/09/21 MD Hermelinda Provider [address] [facility] [address] [place], [place] [phone] Dalia Ervin Assigned OBGYN Provider 10/07/21 MD Long [address] [place] [address] documented as of this encounter
--- OUTSIDE RECORDS SUMMARY | 2022-07-12 20:21 | XMS_ITS | Encounter Summary ---
:1995 Author Organization [place] Address [address] [place] [address] Care Team Providers Name Role Phone Hermelinda Reid MD Unavailable [phone] Hermelinda Reid MD Unavailable [phone] Lurdes Echeverria MD Unavailable Reason for Visit Auth/Cert Specialty Diagnoses / Procedures Referred By Contact Refer red To Contact regional program manager Diagnoses Pre-eclampsia Pre-eclampsia [facility] [address] [place], [place] [phone] Phone: Fax: Referral ID Status Reason Start Date Expiration Date Visits Requ ested Visits Authorized [id number] 1 1 Encounter Details Date Type Department Care Team Description 09/20/2021 - [facility] Parker Dunn MD [address] [place], [place] [id number] S/P (Primary Dx); 09/24/2021 Encounter [facility] Lore Son MD [address] [place] [address] Elevated blood sugar [address] [place] [phone] Social History Tobacco Use Types Packs/Day Years Used Date Smoking Tobacco: Never Smokeless Tobacco: Never Alcohol Use Standard Drinks/Week Comments Not Currently 0 (1 standard drink = 0.6 oz pure alcoho l) Sex Assigned at Date Recorded Female 09/11/2021 7:15 AM SHIP KEEPER COVID-19 Exposure Response Date Recorded In the last month, have you been in contact with No / Unsure 09/20/2021 11:06 AM SHIP KEEPER someone who was confirmed or suspected to have Coronavirus / COVID-19? documented as of this encounter Last Filed Vital Signs Vital Sign Reading Time Taken Comments Blood Pressure 133/86 09/24/2021 11:00 AM SHIP KEEPER Pulse 113 09/24/2021 11:00 AM SHIP KEEPER Temperature 36.8 ??C (98.2 ??F) 09/24/2021 11:00 AM SHIP KEEPER Respiratory Rate 20 09/24/2021 11:00 AM SHIP KEEPER Oxygen Saturation 98% 09/23/2021 11:28 AM SHIP KEEPER Inhaled Oxygen Concentration - - Weight 92.1 kg (203 lb 0.8 oz) 09/24/2021 7:00 AM SHIP KEEPER Height 160 cm (5' 3) 09/20/2021 2:00 PM SHIP KEEPER Body Mass Index 35.97 09/20/2021 2:00 PM SHIP KEEPER documented in this encounter Discharge Summaries Lore Son MD - 09/24/2021 7:32 AM CST [facility] Discharge Summary Beatriz Aparicio Age: [age] year old Date of : 1995 Date of Admission: 09/20/2021 Date of Discharge:: 09/24/2021 Admitting Physician: Lore Son MD Discharge Physician: Lore Son MD Home clinic: [facility] Admission Diagnoses: Intrauterine at 34w4d Pre-eclampsia without severe features Poorly controlled Type 2 diabetes mellitus Obesity Discharge Diagnosis: Eclampsia Poorly controlled Type 2 diabetes mellitus Obesity S/p RLTCS Procedures: Procedure(s): Stat repeat low transverse section Head CT imaging Medications Prior to Admission: No medications prior to admission. Discharge Medications: Discharge Medication List as of 09/24/2021 12:37 PM START taking these medications Details ibuprofen (ADVIL/MOTRIN) 600 MG tablet Take 1 tablet (600 mg) by mouth every 6 hours as needed for mild pain, Disp-30 tablet, R-0, E-Prescribe insulin aspart (NOVOLOG PEN) 100 UNIT/ML pen Inject 5 Units Subcutaneous 3 times daily (before meals), Disp-15 mL, No Print Out !! insulin NPH 100 UNIT/ML injection Inject 15 Units Subcutaneous every morning (before breakfast), Disp-15 mL, No Print Out !! insulin NPH 100 UNIT/ML injection Inject 10 Units Subcutaneous daily (with dinner), Disp-15 mL, No Print Out oxyCODONE (ROXICODONE) 5 MG tablet Take 1 tablet (5 mg) by mouth every 6 hours as needed for breakthrough pain, Disp-12 tablet, R-0, E-Prescribe SENNA-docusate sodium (SENNA S) 8.6-50 MG tablet Take 1-2 tablets by mouth 2 times daily, Disp-60 tablet, R-0, E-Prescribe !! - Potential duplicate medications found. Please discuss with provider. CONTINUE these medications which have CHANGED Details acetaminophen (TYLENOL) 500 MG tablet Take 1-2 tablets (500-1,000 mg) by mouth every 6 hours as needed for mild pain, Disp-30 tablet, R-0, E-Prescribe STOP taking these medications aspirin (ASA) 81 MG chewable tablet Comments: Reason for Stopping: calcium carbonate (TUMS) 500 MG chewable tablet Comments: Reason for Stopping: famotidine (PEPCID) 10 MG tablet Comments: Reason for Stopping: insulin NPH (HUMULIN N VIAL) 100 UNIT/ML vial Comments: Reason for Stopping: insulin NPH 100 UNIT/ML vial Comments: Reason for Stopping: insulin regular (HUMULIN R VIAL) 100 UNIT/ML vial Comments: Reason for Stopping: insulin regular 100 UNIT/ML vial Comments: Reason for Stopping: ondansetron (ZOFRAN-ODT) 4 MG ODT tab Comments: Reason for Stopping: Consultations: 1. Hospitalist 2. Neurologist Brief History of Labor or Admission: Reviewed H&P for further details. Hospital Course: Refer to antepartum notes and operative report for further details. The patient's course was unremarkable. She had a CT head that was normal. She underwent 24 hours IV magnesium sulfate for prophlyaxis against another eclamptic seizure.Her blood pressure readings during her course was mostly normotensive with rare occurrence of mild range blood pressure readings. The hospitalist service was consulted to assist with her diabetes management. She recovered as anticipated and experienced no post-operative complications. On discharge, her pain was well controlled. Vaginal bleeding is similar to peak menstrual flow. Voiding without difficulty. Ambulating well and tolerating a normal diet. No fever or significant wound drainage. well. is stable. Passing flatus. No bowel movement yet. She was discharged on post- day #3. Post- hemoglobin: Hemoglobin Date Value Ref Range Status 09/22/2021 7.4 (L) 11.7 - 15.7 g/dL Final 09/22/2021 7.4 (L) 11.7 - 15.7 g/dL Final Discharge Instructions and Follow-Up: Discharge diet: Regular Discharge activity: Your activity upon discharge: Activity as tolerated No lifting or strenuous exercise for 6 weeks No driving for 4 weeks or no driving while on narcotic pain medications Nothing in the vagina including sex, douching or tampons for 6 weeks Discharge follow-up: Follow up with primary care provider in 4 days to remove alicia from incision and in 6 weeks for visit Wound care: Drink plenty of fluids Ice to area for comfort Keep wound clean and dry Discharge Disposition: Discharged to home Attestation: I have reviewed today's vital signs, notes, medications, labs and imaging. Lore Son MD [facility] KEEPER Lois Grant MD - 09/21/2021 4:38 PM CST Service Date: 09/21/2021 As the in house on-call physician, I was called emergently to the patient's room around 1:30 p.m. today. Upon my arrival, the patient was quite speechless, and the rapid response team was in the room. She was apparently 34-5/7 weeks and had an episode of unresponsiveness, which appeared as though she had passed out and had a bit of shaking. Her then called Claudia LEAL to the room. Immediate blood pressures have been 120s/80s and repetitive blood pressures were elevating to 170s to 180s to 190s over 90s-110s. During this time, she said she began getting the worst headache of her life. She was admitted under the care of [facility] for preeclampsia evaluation and received betamethasone. She also had poorly controlled diabetes. Upon my arrival, she had not been having monitoring since 10:30 a.m. and they were unable to find heart tones. At that time, I had the ultrasound and we briskly with visualization found heart tones and were able to apply the Doppler monitor. Fetus did appear to be normal. I then quickly did assessment of the mother, which showed her alert and intact. She was breathing regularly and was really aloof to questioning. She was able to protrude her tongue and smile. Gross cranial nerves check was performed and this was found to be normal. At that point, I did call for a loading dose of 4 grams of magnesium sulfate and to run at 2 grams per hour for her preeclampsia, likely with an eclamptic episode. At that point, Dr. Torrez did arrive in the room, and he took over care from there. Lois Grant MD MT: [id number] Name: BEATRIZ APARICIO Account: [id number] : 1995 Service Date: 09/21/2021 Document: [id number] KEEPER documented in this encounter Discharge Instructions Discharge InstructionsDeedee Villavicencio RN - 09/24/2021 12:37 PM CST Postop Instructions Activity ?? Do not lift more than 10 pounds for 6 weeks after surgery. Ask family and friends for help when you need it. ?? No driving until you have stopped taking your pain medications (usually two weeks after surgery). ?? No heavy exercise or activity for 6 weeks. Don't do anything that will put a strain on your surgery site. ?? Don't strain when using the toilet. Your care team may prescribe a stool softener if you have problems with your bowel movements. To care for your incision: ?? Keep the incision clean and dry. ?? Do not soak your incision in water. No swimming or hot tubs until it has fully healed. You may soak in the bathtub if the water level is below your incision. ?? Do not use peroxide, gel, cream, lotion, or ointment on your incision. ?? Adjust your clothes to avoid pressure on your surgery site (check the elastic in your underwear for example). You may see a small amount of clear or pink drainage and this is normal. Check with your health care provider: ?? If the drainage increases or has an odor. ?? If the incision reddens, you have swelling, or develop a rash. ?? If you have increased pain and the medicine we prescribed doesn't help. ?? If you have a fever above 100.4 F (38 C) with or without chills when placing thermometer under your tongue. The area around your incision (surgery wound), will feel numb. This is normal. The numbness should go away in less than a year. Keep your hands clean: Always wash your hands before touching your incision (surgery wound). This helps reduce your risk ofinfection. If your hands aren't dirty, you may use an alcohol hand-rub to clean your hands. Keep your nails clean and short. Call your healthcare provider if you have any of these symptoms: ?? You soak a sanitary pad with blood within 1 hour, or you see blood clots larger than a golf ball. ?? Bleeding that lasts more than 6 weeks. ?? Vaginal discharge that smells bad. ?? Severe pain, cramping or tenderness in your lower belly area. ?? A need to urinate more frequently (use the toilet more often), more urgently (use the toilet veryquickly), or it smith when you urinate. ?? Nausea and vomiting. ?? Redness, swelling or pain around a vein in your leg. ?? Problems or a red or painful area on your breast. ?? Chest pain and cough or are gasping for air. ?? Problems with coping with sadness, anxiety or depression. If you have concerns about hurting yourself or the baby, call your provider immediately. ?? You have questions or concerns after you return home. Preeclampsia Call your doctor right away if you have any of the following: - Edema (swelling) in your face or hands - Rapid weight gain-about 1 pound or more in a day - Headache - Abdominal pain on your right side - Vision problems (flashes or spots) - You have questions or concerns once you return home. KEEPER AttachmentsThe following attachments cannot be sent through Care Everywhere. Gestational Hypertension (Algerian)documented in this encounter Medications at Time of [...] 022 injectionIndications: Subcutaneous daily S/P (with dinner) insulin NPH 100 UNIT/ML Inject 15 Units 0.15 mL 0 022 injectionIndications: Subcutaneous once for Elevated blood sugar 1 dose ibuprofen Take 1 tablet (600 mg) 30 [...] tabletIndications: S/P documented as of this encounter Progress Notes Deandra Taylor RN - 09/24/2021 1:29 PM CST All discharge instructions were reviewed with couplet (pateint and spouse) by sheet writer and any/all questions answered. All discharge medications issued (Tylenol, Ibuprofen, Senna, and Oxycodone) and how/when next to take reviewed. New insulin orders were reviewed and new dosing discussed. Spouse, who manages all blood sugars and administration of insulin, states understanding of new regimen, as Hospitalist MD came in and reviewed with couplet. Breast pump issued. Patient is aware to follow up on 09/27 for staple removal and 6 weeks for PP visit. remains in NICU. Patient left unit with spouse and all belongings at 1537. NPH insulin dose is currently being filled and sheet writer will bring down to patient. Patient was discharged with blue eclampsia wrist band and educational paperwork. Preeclampsia information also issued at time of discharge and reviewed s/sx. KEEPER Nahid Freedman, DO - 09/24/2021 11:38 AM CST [facility] Medicine Progress Note - Hospitalist Service Date of Admission: 09/20/2021 Assessment & Plan Beatriz Aparicio is a 26 year old?female who is currently at 34w4d??with PMH significant for uncontrolled DM2, h/o severe preeclampsia s/p c- section??at 35w6d at [facility] in 2017, previous COVID infection (08/24/21), obesity,??and??anxiety who presents for pre-eclampsia evaluation.?? Status post section on 09/21. ?? 1.??Preeclampsia. Status post on 09/21. -Obstetrics following. -Previously on continuous IV magnesium infusion, which was stopped evening of 09/22. -IV labetalol and hydralazine available as needed. ?? 2.??Diabetes mellitus type 2. -Continue NPH to 15 units with breakfast. -Continue NPH insulin 10 units with supper. -Change scheduled aspart insulin to 5 units 3 times a day with meals at discharge. -Additional aspart sliding scale as needed while in hospital. -Continue to monitor blood glucose levels in the outpatient setting. -Follow-up with primary care provider within 1 week with blood glucose numbers for further adjustments in insulin dosing. Diet: Room Service Regular Diet Adult Diet DVT Prophylaxis: Defer to primary service Donovan Catheter: Not present Central Lines: None Cardiac Monitoring: None Code Status: Full Code Nahid Freedman DO Hospitalist Service [facility] Securely message with the NativeAD Console (learn more here) Text page via [facility] Paging/Directory Clinically Significant Risk Factors Present on Admission # Obesity: Estimated body mass index is 35.97 kg/m?? as calculated from the following: Height as of this encounter: 1.6 m (5' 3). Weight as of this encounter: 92.1 kg (203 lb 0.8 oz). Interval History Denies chest pain, shortness of breath, fevers, chills, nausea, or vomiting. Data reviewed today: I reviewed all medications, new labs and imaging results over the last 24 hours. Physical Exam Vital Signs: Temp: 98.5 ??F (36.9 ??C) Temp src: Oral BP: 138/87 Pulse: 92 Resp: 16 O2 Device: None (Room air) Weight: 203 lbs .8 oz Gen: NAD, A&Ox3. Eyes: PERRL, sclera anicteric. OP: MMM, no lesions. Neck: Supple. CV: Regular, no murmurs. Lung: CTA b/l, normal effort. Ab: +BS, soft. Skin: Warm, dry to touch. No rash. Ext: No pitting edema LE b/l. Data Recent Labs Lab 09/24/21 1051 09/24/21 0202 09/23/21 2146 09/22/21 1442 09/22/21 1042 09/22/21 0915 09/22/21 0718 09/21/21 1719 09/21/21 1405 09/21/21 1030 09/21/21 1027 09/21/21 0730 09/21/21 0631 WBC -- -- -- -- -- -- 15.6* -- 15.1* -- 12.1* -- 13.8* HGB -- -- -- -- -- -- 7.4* 7.4* -- 10.1* -- 9.8* -- 10.1* MCV -- -- -- -- -- -- 77* -- 78 -- 78 -- 78 PLT -- -- -- -- -- -- 280 -- 316 -- 279 -- 299 NA -- -- -- -- 136 -- -- -- -- -- 136 -- 135 POTASSIUM -- -- -- -- 4.3 -- -- -- -- -- 3.8 -- 4.1 CHLORIDE -- -- -- -- 107 -- -- -- -- -- 108 -- 109 CO2 -- -- -- -- 22 -- -- -- -- -- 19* -- 18* BUN -- -- -- -- 10 -- -- -- -- -- 11 -- 9 CR -- -- -- -- 0.38* -- -- -- 0.36* -- 0.38* -- 0.35* ANIONGAP -- -- -- -- 7 -- -- -- -- -- 9 -- 8 USMAN -- -- -- -- 7.1* -- -- -- -- -- 8.7 -- 8.7 GLC 107* 178* 167* < > 208* < > -- < > -- < > 189* < > 143* ALBUMIN -- -- -- -- 2.2* -- -- -- -- -- 2.2* -- 2.4* PROTTOTAL -- -- -- -- 6.1* -- -- -- -- -- 6.6* -- 6.8 BILITOTAL -- -- -- -- 0.1* -- -- -- -- -- 0.3 -- 0.2 ALKPHOS -- -- -- -- 90 -- -- -- -- -- 102 -- 104 ALT -- -- -- -- 16 -- -- -- 14 -- 17 -- 15 AST -- -- -- -- 17 -- -- -- 13 -- 12 -- 10 < > = values in this interval not displayed. Lore Allan MD - 09/24/2021 7:31 AM CST PPD#3 Doing well. Pain well controlled on oral pain medication. Tolerating regular diet. Voiding well. Passing flatus. Ambulating without difficulty. Lochia is scant. Vitals: 09/23/21 1128 09/23/21 1418 09/23/21 1719 09/24/21 0045 BP: (!) 140/88 136/73 127/76 138/87 BP Location: Right arm Patient Position: Sitting Pulse: 87 103 103 92 Resp: 18 20 18 16 Temp: 98 ??F (36.7 ??C) 97.8 ??F (36.6 ??C) 98.5 ??F (36.9 ??C) TempSrc: Oral Oral Oral SpO2: 98% Weight: Height: General Appearance: NAD Abdomen: Soft, NT, ND. Fundus firm at U-2 Incision: Alicia in place, appear clean, dry and intact. Extremities: NT, trace edema Hemoglobin Date Value Ref Range Status 09/22/2021 7.4 (L) 11.7 - 15.7 g/dL Final 09/22/2021 7.4 (L) 11.7 - 15.7 g/dL Final ] A/P: 26 year old P0202 PPD#3 s/p stat RLTCS for eclampsia. Hemodynamically stable. -- Eclampsia: s/p 24 hr IV magnesium sulfate; BP readings have been normotensive with the exception of one mild BP reading -- Type 2 DM: Hospitalist service managing and will prescribe outpatient insulin for patient -- outpatient precautions and expectations reviewed -- recommend discharging home with alicia in place and returning on POD#7 (09/27) for removal of alicia in clinic Lore Son MD [facility] KEEPER Nahid Freedman DO - 09/23/2021 1:23 PM CST [facility] Medicine Progress Note - Hospitalist Service Date of Admission: 09/20/2021 Assessment & Plan Beatriz Aparicio is a 26 year old?female who is currently at 34w4d??with PMH significant for uncontrolled DM2, h/o severe preeclampsia s/p c- section??at 35w6d at [facility] in 2017, previous COVID infection (08/24/21), obesity,??and??anxiety who presents for pre-eclampsia evaluation.?? Status post section on 09/21. ?? 1.??Preeclampsia. Status post on 09/21. -Obstetrics following. -Previously on continuous IV magnesium infusion, which was stopped evening of 09/22. -Have IV labetalol and hydralazine available as needed. ?? 2.??Diabetes mellitus type 2. -Increase morning NPH to 15 units with breakfast. -Continue NPH insulin 10 units with supper. -Continue aspart insulin on a carb counting basis with meals, 1 unit per 15 g of carbohydrates. -Additional aspart sliding scale as needed. ?? Diet: Room Service Regular Diet Adult DVT Prophylaxis: Defer to primary service Donovan Catheter: Not present Central Lines: None Cardiac Monitoring: None Code Status: Full Code Nahid Freedman DO Hospitalist Service [facility] Securely message with the Native[employer] Console (learn more here) Text page via [employer] Paging/Directory Clinically Significant Risk Factors Present on Admission # Obesity: Estimated body mass index is 36.2 kg/m?? as calculated from the following: Height as of this encounter: 1.6 m (5' 3). Weight as of this encounter: 92.7 kg (204 lb 5.9 oz). Interval History Some nausea. Abdominal pain under better control today. Denies chest pain, shortness of breath, fevers, chills. Data reviewed today: I reviewed all medications, new labs and imaging results over the last 24 hours. Physical Exam Vital Signs: Temp: 97.7 ??F (36.5 ??C) Temp src: Oral BP: 138/78 Pulse: 90 Resp: 18 Weight: 204 lbs 5.86 oz Gen: NAD, A&Ox3. Eyes: PERRL, sclera anicteric. OP: MMM, no lesions. Neck: Supple. CV: Regular, no murmurs. Lung: CTA b/l, normal effort. Ab: +BS, soft. Skin: Warm, dry to touch. No rash. Ext: No pitting edema LE b/l. Data Recent Labs Lab 09/23/21 1105 09/23/21 0224 09/22/21 2042 09/22/21 1442 09/22/21 1042 09/22/21 0915 09/22/21 0718 09/21/21 1719 09/21/21 1405 09/21/21 1030 09/21/21 1027 09/21/21 0730 09/21/21 0631 WBC -- -- -- -- -- -- 15.6* -- 15.1* -- 12.1* -- 13.8* HGB -- -- -- -- -- -- 7.4* 7.4* -- 10.1* -- 9.8* -- 10.1* MCV -- -- -- -- -- -- 77* -- 78 -- 78 -- 78 PLT -- -- -- -- -- -- 280 -- 316 -- 279 -- 299 NA -- -- -- -- 136 -- -- -- -- -- 136 -- 135 POTASSIUM -- -- -- -- 4.3 -- -- -- -- -- 3.8 -- 4.1 CHLORIDE -- -- -- -- 107 -- -- -- -- -- 108 -- 109 CO2 -- -- -- -- 22 -- -- -- -- -- 19* -- 18* BUN -- -- -- -- 10 -- -- -- -- -- 11 -- 9 CR -- -- -- -- 0.38* -- -- -- 0.36* -- 0.38* -- 0.35* ANIONGAP -- -- -- -- 7 -- -- -- -- -- 9 -- 8 USMAN -- -- -- -- 7.1* -- -- -- -- -- 8.7 -- 8.7 GLC 107* 198* 220* < > 208* < > -- < > -- < > 189* < > 143* ALBUMIN -- -- -- -- 2.2* -- -- -- -- -- 2.2* -- 2.4* PROTTOTAL -- -- -- -- 6.1* -- -- -- -- -- 6.6* -- 6.8 BILITOTAL -- -- -- -- 0.1* -- -- -- -- -- 0.3 -- 0.2 ALKPHOS -- -- -- -- 90 -- -- -- -- -- 102 -- 104 ALT -- -- -- -- 16 -- -- -- 14 -- 17 -- 15 AST -- -- -- -- 17 -- -- -- 13 -- 12 -- 10 < > = values in this interval not displayed. 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 Fahad shared he was recently laid off from his job & hislooking for new employment. Insurance: pending Source of Financial Support: Beatriz shared she is on medical assistance & receives food stamps Mental Health History: denied History of Mood Disorders: denied Chemical Health History: none noted INTERVENTION: ?? MORRIS completed chart review and collaborated with the multidisciplinary team. ?? Psychosocial Assessment ?? Introduction to NICU Chute Tender role and scope of practice ?? Discussed NICU experience and gave NICU welcome card ?? Reviewed Hospital and Community Resources ?? Assessed Chemical Health History and Current Symptoms ?? Assessed Mental Health History and Current Symptoms ?? Identified stressors, barriers and family concerns ?? Provided support and active empathetic listening and validation. ?? Provided psychoeducation on mood and anxiety disorders, assessed for any current symptoms or history ASSESSMENT: Coping: adequate Affect: reserved & flat at times Mood: Beatriz denies any current mood concerns. Motivation/Ability to Access Services: Highly motivated, independent in accessing services. SW provided contact information to WIC & Beatriz plans to contact them to enroll. Assessment of Support System: stable, involved Level of engagement with SW: They appeared open to and appreciative of support & connection to resources Family's understanding of baby's medical situation: appropriate understanding Family and parent/infant interactions: Parents seem supportive of each other & are bonding with baby as they are able. Assessment of parental risk for PMAD: Higher than average risk given unexpected NICU admission Strengths: willingness to ask for help Vulnerabilities: limited finances Identified Barriers: finances PLAN: SW met with Beatriz EARLY & Fahad HIDALGO to introduce SW & SW's role while baby is here in the hospital. They shared they have a crib & 2 car seats at home. Beatriz voiced some concerns with finances & Fahad voiced he recently was laid off. They shared they have limited finances for purchasing additional baby items. SW provided them with bundle of hope bag of baby items & diaper pack. Beatriz voiced understanding of how to enroll in WIC & was given contact information for WIC in [facility]. SW also provided [facility] Resource guide for families with young children. They voiced appreciation for information & items. SW discussed baby blues & depression. Beatriz denied any current mood concerns. SW provided information on & support [place]. Beatriz & Fahad voiced agreement for ongoing SW check in's while baby is here in the NICU. SW contact information was given if any needs or concerns arise prior to next visit. LEIGH [facility] 09/23/2021 1:14 PM Jian Hendrix MD - 09/23/2021 10:04 AM CST [facility] Post-Op / Progress Note Assessment and Plan: Assessment: Post-operative day #2 Emergent Low transverse repeat section L&D complications: Eclampsia Type 2 DM Prior C/S Doing well. No immediate surgical complications identified. No excessive bleeding Pain well-controlled. Hospitalist Service managing DM Baby stable in NICU Asymptomatic PP anemia due to pre exisiting anemia and expected intra op losses Plan: Ambulation encouraged Pain control measures as needed Reportable signs and symptoms dicussed with the patient Anticipate discharge tomorrow Interval History: Doing well. Pain is well-controlled. No fevers. No history of wound drainage, warmth or significant erythema. Good appetite. Denies chest pain, shortness of breath, nausea or vomiting. Ambulatory. Significant Problems: Past Medical History: Diagnosis Date ??? Diabetes (H) GDM ??? Hypertension hx pre-eclampsia in first Review of Systems: The patient denies any chest pain, shortness of breath, excessive pain, fever, chills, purulent drainage from the wound, nausea or vomiting. Medications: All medications related to the patient's surgery have been reviewed Physical Exam: All vitals stable Patient Vitals for the past 24 hrs: BP Temp Temp src Pulse Resp SpO2 Weight 09/23/21 0702 -- -- -- -- -- -- 92.7 kg (204 lb 5.9 oz) 09/23/21 0430 138/78 -- -- 90 -- -- -- 09/22/21 2225 117/66 97.7 ??F (36.5 ??C) Oral 94 18 -- -- 09/22/21 1730 127/74 -- -- 87 -- -- -- 09/22/21 1300 134/81 98 ??F (36.7 ??C) Oral 91 16 98 % -- Wound not assessed on rounds as patient with baby and spouse in NICU Ext neg Data: Hemoglobin Date Value Ref Range Status 09/22/2021 7.4 (L) 11.7 - 15.7 g/dL Final 09/22/2021 7.4 (L) 11.7 - 15.7 g/dL Final 09/21/2021 10.1 (L) 11.7 - 15.7 g/dL Final 09/21/2021 9.8 (L) 11.7 - 15.7 g/dL Final 09/21/2021 10.1 (L) 11.7 - 15.7 g/dL Final - Jian Dunn MD 09/23/2021 10:05 AM KEEPER Nahid Freedman DO - 09/22/2021 3:09 PM CST [facility] Progress Note - Hospitalist Service Date of Admission: 09/20/2021 Assessment & Plan Beatriz Aparicio is a 26 year old?female who is currently at 34w4d??with PMH significant for uncontrolled DM2, h/o severe preeclampsia s/p c- section??at 35w6d at [facility] in 2017, previous COVID infection (08/24/21), obesity,??and??anxiety who presents for pre-eclampsia evaluation.? 1. Preeclampsia. Now status post emergent . -Obstetrics following. -Currently on continuous IV magnesium infusion. -Have IV labetalol and hydralazine available as needed. ?? 2. Diabetes mellitus type 2. -Restart NPH insulin 10 units twice a day. -Start aspart insulin on a carb counting basis with meals, 1 unit per 15 g of carbohydrates. -Additional aspart sliding scale as needed. ?? Diet: Room Service Regular Diet Adult DVT Prophylaxis: Defer to primary service. Donovan Catheter: PRESENT, indication: /GI/RESEARCH NURSE Pelvic Procedure Central Lines: None Cardiac Monitoring: None Code Status: Full Code Nahid Freedman DO Hospitalist Service [facility] Securely message with the NativeAD Console (learn more here) Text page via O[employer] Paging/Directory Clinically Significant Risk Factors Present on Admission # Obesity: Estimated body mass index is 36.1 kg/m?? as calculated from the following: Height as of this encounter: 1.6 m (5' 3). Weight as of this encounter: 92.4 kg (203 lb 12.8 oz). Interval History Some abdominal pain. Denies chest pain, shortness of breath, fevers, chills, nausea, or vomiting. Data reviewed today: I reviewed all medications, new labs and imaging results over the last 24 hours. Physical Exam Vital Signs: Temp: 98 ??F (36.7 ??C) Temp src: Oral BP: 134/81 Pulse: 91 Resp: 16 SpO2: 98 % O2 Device: None (Room air) Oxygen Delivery: 7 LPM Weight: 203 lbs 12.8 oz Gen: NAD, A&Ox3. Eyes: PERRL, sclera anicteric. OP: MMM, no lesions. Neck: Supple. CV: Regular, no murmurs. Lung: CTA b/l, normal effort. Ab: +BS, soft. Skin: Warm, dry to touch. No rash. Ext: No pitting edema LE b/l. Data Recent Labs Lab 09/22/21 1442 09/22/21 1042 09/22/21 0915 09/22/21 0718 09/21/21 1719 09/21/21 1405 09/21/21 1030 09/21/21 1027 09/21/21 0730 09/21/21 0631 WBC -- -- -- 15.6* -- 15.1* -- 12.1* -- 13.8* HGB -- -- -- 7.4* 7.4* -- 10.1* -- 9.8* -- 10.1* MCV -- -- -- 77* -- 78 -- 78 -- 78 PLT -- -- -- 280 -- 316 -- 279 -- 299 NA -- 136 -- -- -- -- -- 136 -- 135 POTASSIUM -- 4.3 -- -- -- -- -- 3.8 -- 4.1 CHLORIDE -- 107 -- -- -- -- -- 108 -- 109 CO2 -- 22 -- -- -- -- -- 19* -- 18* BUN -- 10 -- -- -- -- -- 11 -- 9 CR -- 0.38* -- -- -- 0.36* -- 0.38* -- 0.35* ANIONGAP -- 7 -- -- -- -- -- 9 -- 8 USMAN -- 7.1* -- -- -- -- -- 8.7 -- 8.7 GLC 220* 208* 174* -- < > -- < > 189* < > 143* ALBUMIN -- 2.2* -- -- -- -- -- 2.2* -- 2.4* PROTTOTAL -- 6.1* -- -- -- -- -- 6.6* -- 6.8 BILITOTAL -- 0.1* -- -- -- -- -- 0.3 -- 0.2 ALKPHOS -- 90 -- -- -- -- -- 102 -- 104 ALT -- 16 -- -- -- 14 -- 17 -- 15 AST -- 17 -- -- -- 13 -- 12 -- 10 < > = values in this interval not displayed. KEEPER Christianne Cotto MD - 09/22/2021 12:40 PM CST September 22, 2021 DAILY NOTE - POSTOP DAY 1 SUBJECTIVE: status post emergent under general anesthesia for eclampsia after a seizure. On mag at 2g/hr, excellent UOP. Has visited NICU frequently. BPs all normal since delivery. No meds for blood pressure. States her headache is resolved. Also Type II DM, was on insulin prior to delivery. Metformin prior to , no insulin. Pain controlled? Yes Tolerating a regular diet? YES Ambulating? YES Voiding without difficulty? No: catheter in to monitor UOP, will remove today when Mag is off. Lochia? minimal : No, pumping OBJECTIVE: Vitals: 09/22/21 0010 09/22/21 0231 09/22/21 0355 09/22/21 0745 BP: 130/65 128/74 135/75 Pulse: 98 92 98 Resp: 20 20 16 Temp: 97.8 ??F (36.6 ??C) 98 ??F (36.7 ??C) 97.6 ??F (36.4 ??C) TempSrc: Oral Oral Oral SpO2: 94% 99% 100% Weight: 92.4 kg (203 lb 12.8 oz) Height: Constitutional: healthy and alert Abdomen: Uterine fundus is firm, non-tender and at the level of the umbilicus Incision: C/D/I LE: trace edema, non-tender LABS: Hemoglobin Date Value Ref Range Status 09/22/2021 7.4 (L) 11.7 - 15.7 g/dL Final 09/21/2021 10.1 (L) 11.7 - 15.7 g/dL Final No results found for: RUBELLAABIGG No results found for: ABO No results found for: RH No components found for: CMP ASSESSMENT: POD #1 Repeat LTCS Eclampsia, on mag Type II DM, on metformin only prior to PLAN: Continue routine care Ambulation encouraged Labs pending this am. Careful monitoring of UOP given inability to check STAT mag levels due to reagent shortage. Currently, she has no signs and symptoms of mag toxicity. Anticipate discharge in 2-3 days Appreciate medicine service assistance in managing blood glucoses. She will likely be discharged on metformin +/- sliding scale insulin coverage depending on BS while hospitalized. Will defer to their service for specific discharge recommendations. Christianne Cotto MD KEEPER Lore Son MD - 09/21/2021 2:28 PM CST Was paged to evaluate patient stat for a presumed eclamptic seizure. I seen and evaluated patient. Rapid response was called prior to my arrival. I was updated on status of patient. Patient is awake, alert and oriented although slow to respond to questions. Informed by executive staff assistant that patient had recurrence of severe headache just prior to her presumed eclamptic seizure. Apparently, her was only witness to the event and he described her falling backin bed while in bed and having generalized shaking spells. Her blood pressure reading was measured 180/110. heart monitoring was done showing baseline 135, moderate variability, no accels or no decels. A/P: Eclamptic seisure at 34w5d -- informed patient of need for expedient delivery; she had already received her first dose of betamethasone and will adminster her second dose prior to deliver ;contacted M Dr. Trinity Oconnell about clinical situation and she agrees to proceed with delivery -- IV labetalol 20 mg dose given with appropriate response to medication with resultant decrease in blood pressure reading to normotensive range; IV magnesium load 4g followed by IV 2g/hr maintenance rate ordered; repeat HELLP labs ordered as well. -- patient was consented for repeat section; risks of the procedure reviewed including but not limited to bleeding, infection, need for blood transfusion, injury to surrounding organs (ie bowel/intestines, bladder, ureters, major blood vessels and nerves)., which if injured, then will be ident ified and repaired at time of surgery or will be repaired by surgeons that specialize in those areas. Also reviewed unintended injuries going unnoticed at the time of surgery, and that would require additional surgery to be done to have them repaired. Also reviewed injury and rare risk of hysterectomy for life threatening bleeding. Patient conveys understanding and agrees to proceed. She signed the consent form. Lore Son MD [facility] KEEPER Katja Daniels - 09/21/2021 2:23 PM CST [facility] Progress Note L&D 4 Maintenance Journeyman visited pt and family per balloon maker page rapid response to room. Upon entrance Maintenance Journeyman was instructed to take dad of pt's daughter out of the room. Maintenance Journeyman learnedfrom dad that pt passed out after eating. Oriented to [facility]. After a few minutes, dad was advised to come inside to hold pt hand. Pt and partner welcomed prayer in the vincenzo of [employer] and [employer]. Partner indicated that they havebeen attending [employer] and the pt enjoys pentecostal. Pt was tired and needing rest. PLAN: Team has been given coordinator of library services pager #. SHS remains available. Domingo Ling. Maintenance Journeyman Joiner Pager: [phone] KEEPER Nahid Freedman DO - 09/21/2021 2:20 PM CST [facility] Progress Note - Hospitalist Service Date of Admission: 09/20/2021 Assessment & Plan Beatriz Aparicio is a 26 year old female who is currently at 34w4d with PMH significantfor uncontrolled DM2, h/o severe preeclampsia s/p at 35w6d at [facility] in 2017, previous COVIDinfection (08/24/21), obesity, and anxiety who presents for pre-eclampsia evaluation. 1. Preeclampsia. Now with possible seizure activity. -Check CT head. -Obstetrics following. -Has been on intramuscular betamethasone. -Continue nifedipine. -Being given IV magnesium grams once now. -Have IV labetalol and hydralazine available as needed. -CT scan of head when able. 2. Diabetes mellitus type 2. Not being changed to n.p.o. diet status. -Hold scheduled insulin for now. -Change aspart sliding scale to n.p.o. dosing. Diet: NPO per Anesthesia Guidelines for Procedure/Surgery Except for: Meds DVT Prophylaxis: Pneumatic Compression Devices Donovan Catheter: Not present Central Lines: None Cardiac Monitoring: None Code Status: Full Code Nahid Freedman DO Hospitalist Service [facility] Securely message with the Native[employer] Console (learn more here) Text page via [employer] Paging/Directory Clinically Significant Risk Factors Present on Admission # Platelet Defect: home medication list includes an antiplatelet medication # Obesity: Estimated body mass index is 37.02 kg/m?? as calculated from the following: Height as of this encounter: 1.6 m (5' 3). Weight as of this encounter: 94.8 kg (209 lb). Interval History Short of breath at times. Has a headache today. Had an episode this afternoon while she was eating lunch. Significant other at bedside saw her seem to fall back into the bed. He noted that her eyes seem to roll up in the back of her head. No chest pain, fevers, chills, nausea, or vomiting. Data reviewed today: I reviewed all medications, new labs and imaging results over the last 24 hours. Physical Exam Vital Signs: Temp: 98.2 ??F (36.8 ??C) Temp src: Oral BP: 133/88 Resp: 16 SpO2: 98 % Weight: 209 lbs 0 oz Gen: NAD, A&Ox3. Eyes: PERRL, sclera anicteric. OP: MMM, no lesions. Neck: Supple. CV: Regular, no murmurs. Lung: CTA b/l, normal effort. Ab: +BS, soft. Skin: Warm, dry to touch. No rash. Ext: No pitting edema LE b/l. Data Recent Labs Lab 09/21/21 1405 09/21/21 1336 09/21/21 1300 09/21/21 1147 09/21/21 1030 09/21/21 1027 09/21/21 0730 09/21/21 0631 09/20/21 1745 09/20/21 1136 WBC 15.1* -- -- -- -- 12.1* -- 13.8* -- 8.6 HGB 10.1* -- -- -- -- 9.8* -- 10.1* -- 9.7* MCV 78 -- -- -- -- 78 -- 78 -- 78 PLT 316 -- -- -- -- 279 -- 299 -- 234 NA -- -- -- -- -- 136 -- 135 -- 138 POTASSIUM -- -- -- -- -- 3.8 -- 4.1 -- 4.0 CHLORIDE -- -- -- -- -- 108 -- 109 -- 111* CO2 -- -- -- -- -- 19* -- 18* -- 22 BUN -- -- -- -- -- 11 -- 9 -- 10 CR -- -- -- -- -- 0.38* -- 0.35* -- 0.40* ANIONGAP -- -- -- -- -- 9 -- 8 -- 5 USMAN -- -- -- -- -- 8.7 -- 8.7 -- 8.7 GLC -- 174* 176* 163* < > 189* < > 143* < > 114* ALBUMIN -- -- -- -- -- 2.2* -- 2.4* -- 2.1* PROTTOTAL -- -- -- -- -- 6.6* -- 6.8 -- 6.4* BILITOTAL -- -- -- -- -- 0.3 -- 0.2 -- 0.1* ALKPHOS -- -- -- -- -- 102 -- 104 -- 102 ALT -- -- -- -- -- 17 -- 15 -- 14 AST -- -- -- -- -- 12 -- 10 -- 13 < > = values in this interval not displayed. KEEPER Lore Son MD - 09/21/2021 7:31 AM CST Antepartum Note Reports contractions and headache this morning. Contractions have since settled down in intensity and frequency. Was given a dose of nifedipine for her contractions. Uncertain if her headaches started after nifedipine administration, btu has not been well addressed with 650 mg PO Tylenol. She also acknowledges though that she has not slept well overnight due to LE pain from swelling and onset of contractions. Denies visual disturbances or RUQ abdominal pain. Vitals: 09/21/21 0420 09/21/21 0524 09/21/21 0626 09/21/21 0627 BP: 127/76 127/76 Resp: Temp: TempSrc: SpO2: 100% 98% Weight: Height: General Appearance: NAD Abdomen: Gravid, NT Pelvic: Deferred, but cervix exam per RN was 1 cm earlier this AM FHT: 135, moderate variability, accels present, no decels Mccarr: q2-7 minutes A/P: 26 year old 34w5d HD#2 admitted for pre-eclampsia without severe features with also hx of poorly controlled Type 2 DM 1) Pre-eclampsia without severe features -- based on mild range blood pressure readings and proteinuria; other admission HELLP labs normal; in light of her headache, will order repeat HELLP labs -- currently blood pressure readings have been normotensive -- monitor for signs and symptoms of severe features ie severe range blood pressures readings, persistent severe symptoms and will initiate magnesium sulfate if needed for eclampsia prophylaxis 2) Type 2 DM -- hospitalist managing glucose management following administration of betamethasone for maturity in anticipation of possible delivery; will defer glucose management to them -- ECHO recommended as there was no appointment spot available in the near future for evaluation 3) well being -- continuous monitoring; thus far, status has been Category 1 -- s/p one dose of betemethasone, anticipate second dose today -- had a MFM BPP yesterday which was normal; anticipate ongoing ultrasound surveillance as an outpatient 4) Mode and timing of delivery -- hx of prior at [facility] in 2016 at 35w6d; operative report not accessible on Care Everywhere to determine low transverse status -- per patient, desires repeat -- per MFM ultrasound note yesterday, recommend for now 37w delivery unless clinical status changes to warrant earlier delivery 5) Maternal well being -- routine antepartum cares -- comfort care measures as needed -- for her headache, will order additional dose of Tylenol PO at 325 mg, Reglan 10 mg PRN -- for sleep tonight, will prescribe 50-100 mg Atarax 6) LE swelling and pain -- stat lower extremity ultrasound ordered for rule out DVT 7) Disposition: -- pending completion of betamethasone course and stabilization of her preclampsia without severe features Lore Son MD [facility] KEEPER Jian Dunn MD - 09/21/2021 12:32 AM CST Called to assess patient due to feeling some pelvic pressure following using BR. Mccarr with Q2-5 min mild ctx felt by patient. Cervix FT per RN check. Will begin IV and give 250cc IVF bolus and treat ctx with nifedipine 20mg Q6 hrs Mannie Dunn MD KEEPER Jian Dunn MD - 09/20/2021 4:39 PM CST Discussed plan of care with Dr. Stafford of [facility]. Agree with admission and course of steroids with Hospitalist assistance in glucose management. Ongoing assessment of PIH symptoms/labs. Timing of delivery to be determined by evolution of PIH symptoms with development of severe featureswarranting delivery and degree of DM control. Dr. Dunn KEEPER documented in this encounter H&P Notes Jian Dunn MD - 09/20/2021 2:11 PM CST [facility] Antepartum History and Physical Beatriz Aapricio Age: [age] year old Date of : 1995 Date of Admission: 09/20/2021 Primary care provider: Valeria Carias Chief Complaint: Beatriz Aparicio is a 26 year old female who is female at 34w4d with poorly controlled Type 2 DM and a Hx of pre eclampsia w/ severe features resulting in delivery by C/S at 35w6d at [facility] 5 yrs ago now being admitted for Pre-eclampsia evaluation. She has been receiving care at [facility] with a plan to transfer care to [facility] OB due to complexity of and likelihood of PTD. She reports an elevated BP of 141/81 at [place] on 09/06 which was followed up with normal PIH labs. She was scheduled for a NOB appt today with Dr. Son. She has been having testing through [facility] and Endocrinology management through [facility]. She called in yesterday with complaints of increased swelling in the lower extremities. She also endorsed a BEAN and stated her blood sugars have been better recently - no longer in the 300s. She was advised to come to L&D at [facility] for evaluation. She presented today. Primary complaint is that her legs are tingling Does not endorse severe BEAN or N/V today. Her glucose on initial evaluation was 122. history: OBSTETRIC HISTORY: OB History Para Term AB Living 2 1 0 1 0 1 SAB IAB Ectopic Multiple Live Births 0 0 0 0 1 # Outcome Date GA Lbr Jj/2nd Weight Sex Delivery Anes PTL Lv 2 Current 1 12/09/15 35w2d M -SEC [facility]RIE Complications: Preeclampsia/Hypertension EDC: Estimated Date of Delivery: Oct 28, 2021 Labs: Lab Results Component Value Date CHPCRT Negative 03/27/2021 HGB 9.7 (L) 09/20/2021 GBS Status: No results found for: GBS Active Problem List Patient Active Problem List Diagnosis ??? Elevated blood sugar ??? Pre-eclampsia Medication Prior to Admission Medications Prior to Admission Medication Sig Dispense Refill Last Dose ??? famotidine (PEPCID) 10 MG tablet Take 10 mg by mouth 2 times daily ??? acetaminophen (TYLENOL) 325 MG tablet Take 325-650 mg by mouth every 6 hours as needed for mild pain ??? aspirin (ASA) 81 MG chewable tablet Take 81 mg by mouth daily ??? blood glucose (NO BRAND SPECIFIED) test strip TEST THREE TIMES DAILY ??? Blood Glucose Monitoring Suppl (ASSURE PRO BLOOD GLUCOSE METER) GILDARDO ??? calcium carbonate (TUMS) 500 MG chewable tablet Daily as needed ? ? insulin NPH (HUMULIN N VIAL) 100 UNIT/ML vial Take 28 units 20-30 minutes before breakfast &18 units 20-30 minutes before evening meal. ? ? insulin regular (HUMULIN R VIAL) 100 UNIT/ML vial Take 12 units 20-30 minutes before breakfast & 16 units 20-30 minutes before evening meal. Indications: Diabetes Mellitus ??? lancets 28G MISC As directed. Test 3 times per day. ??? ondansetron (ZOFRAN-ODT) 4 MG ODT tab Take 4 mg by mouth . Maternal Past Medical History: Past Medical History: Diagnosis Date ??? Diabetes (H) GDM ??? Hypertension hx pre-eclampsia in first Family History: Family History Problem Relation Age of Onset ??? Diabetes Father ??? Asthma Sister ??? Cerebrovascular Disease Paternal Grandmother ??? Hypertension Other Family history reviewed Social History: Social History Tobacco Use ??? Smoking status: Never Smoker ??? Smokeless tobacco: Never Used Substance Use Topics ??? Alcohol use: Not Currently Review of Systems: The Review of Systems is negative other than noted in the HPI Physical Exam: Vitals: 09/20/21 1115 09/20/21 1145 09/20/21 1215 09/20/21 1405 BP: (!) 139/92 129/82 127/81 127/73 Resp: Temp: TempSrc: Gen: resting comfortably, in no acute distress. Complains of tingling in legs CV: regular rate, well perfused Pulm: non-labored breathing, no cough Abd: gravid, soft, no ttp, no rebound Skin: warm and dry, no rashes/lesions Psych: appropriate affect Neuro: A+Ox3 Cervix: not checked Ext: 2+ BLE edema, non-tender FHTs 150s with accels, Category 1 BPP in MFM today 03/18 Results for orders placed or performed during the hospital encounter of 09/20/21 (from the past 24 hour(s)) Glucose by meter Result Value Ref Range GLUCOSE BY METER POCT 122 (H) 70 - 99 mg/dL CBC with platelets Result Value Ref Range WBC Count 8.6 4.0 - 11.0 10e3/uL RBC Count 4.20 3.80 - 5.20 10e6/uL Hemoglobin 9.7 (L) 11.7 - 15.7 g/dL Hematocrit 32.8 (L) 35.0 - 47.0 % MCV 78 78 - 100 fL MCH 23.1 (L) 26.5 - 33.0 pg MCHC 29.6 (L) 31.5 - 36.5 g/dL RDW 15.2 (H) 10.0 - 15.0 % Platelet Count 234 150 - 450 10e3/uL Comprehensive metabolic panel Result Value Ref Range Sodium 138 133 - 144 mmol/L Potassium 4.0 3.4 - 5.3 mmol/L Chloride 111 (H) 94 - 109 mmol/L Carbon Dioxide (CO2) 22 20 - 32 mmol/L Anion Gap 5 3 - 14 mmol/L Urea Nitrogen 10 7 - 30 mg/dL Creatinine 0.40 (L) 0.52 - 1.04 mg/dL Calcium 8.7 8.5 - 10.1 mg/dL Glucose 114 (H) 70 - 99 mg/dL Alkaline Phosphatase 102 40 - 150 U/L AST 13 0 - 45 U/L ALT 14 0 - 50 U/L Protein Total 6.4 (L) 6.8 - 8.8 g/dL Albumin 2.1 (L) 3.4 - 5.0 g/dL Bilirubin Total 0.1 (L) 0.2 - 1.3 mg/dL GFR Estimate >90 >60 mL/min/1.73m2 Uric acid Result Value Ref Range Uric Acid 3.4 2.6 - 6.0 mg/dL Protein random urine Result Value Ref Range Total Protein Random Urine g/L 0.79 g/L Total Protein Urine g/gr Creatinine 0.51 (H) 0.00 - 0.20 g/g Cr Creatinine Urine mg/dL 156 mg/dL Wet preparation Specimen: Vagina; Swab Result Value Ref Range Trichomonas Absent Absent Yeast Absent Absent Clue Cells Absent Absent WBCs/high power field 1+ (A) None Assessment: Beatriz Aparicio is a at 34w4d admitted with Pre-eclampsia w/o severe features based on mild range BPs and proteinuria. Hx of pre eclampsia Poorly controlled GDMA2 High risk of PTD being necessitated by above Plan: Admit to L&D Betamethasone x 2, Hospitalist consult to assist in glucose control during course of steroids Serial BPs - Q4 hrs at presnt and treat any severe range BPs per protocol GBS swab to be obtained Continuous monitoring for now. Mannie Dunn MD KEEPER documented in this encounter Consult Notes Erasmo Antonio MD - 09/21/2021 3:23 PM CST Images from the original note were not included. Neurology Consult Note [facility] [September 21, 2021] Admission Date: 09/20/2021 Hospital Day: 2 Code Status: Full Code Patient: Beatriz Aparicio : 1995 CC: No chief complaint on file. Consult Request: Referring Provider: Lore Son MD Indication for Consultation: Neurology IP Consult: General (non-stroke/non-ICU); Patient to be seen:Routine - within 24 hours; Preecclampsia, possible seizure activity; Departmental Buyer may enter orders: Yes; Requesting provider? Hospitalist (if different from attending physician) [CON9] (Order [id number]) Primary Care Provider: Valeria Carias MD HPI: I came to Ms. Aparicio's room for a neurological consultation at the request of Dr. Fernandez. She had been taken to the OR for emergency . I spoke with the unit tender to document my attempt to see the patient. She is now S/P , and I asked if the neurological consultation was still required. I was told that the consult request has been cancelled. Please call if there are further questions. Erasmo Antonio M.D., Ph.D. [facility] KEEPER Evelina Long PA-C - 09/20/2021 2:17 PM CSTAssociated Order(s): HOSPITALIST IP CONSULT [facility] Consult Note - Hospitalist Service Date of Admission: 09/20/2021 Consult Requested by: Dr. Dunn Reason for Consult: Diabetes management while on betamethasone Assessment & Plan Beatriz Aparicio is a 26 year old female who is currently at 34w4d with PMH significantfor uncontrolled DM2, h/o severe preeclampsia s/p at 35w6d at [facility] in 2017, previous COVIDinfection (08/24/21), obesity, and anxiety who presents for pre-eclampsia evaluation. #Poorly controlled DM2 in : prior to patient was taking Metformin 500 mg BID for 2 years. Since being the patient was switch to NPH and Regular insulin for management. Seen by endocrinology at [facility] during her current but most recently seen through for f/u on 09/14/[address] Reid. Blood glucose has been better controlled per patient and since recent insulin changes at last f/u. Initial blood glucose of 122. - most recent insulin regimen includes NPH 40 units and regular 22 units with breakfast and NPH 32 units and regular 30 units with supper, continue for now - blood glucose checks before meals and 2 hours after meals - medium sliding scale insulin with meals - would need to consider insulin gtt pending if patient were to deliver her baby this admission #Current intrauterine #Preeclampsia without severe features: currently 34 weeks and 4 days with signs of preeclampsia and is currently admitted under OB as primary for administration of betamethasone x2. Unclear if patient will stay admitted in the hospital for repeat or will discharge home this weekend in hopes of holding off on delivery until a later date. - betamethasone per OB team - continue DEPARTMENTAL BUYER ASA - diet, DVT prophylaxis, and monitoring per OB team #GERD: resume DEPARTMENTAL BUYER Pepcid The patient's care was discussed with the Attending Physician, Dr. Manuel, Bedside Nurse and Dr. Rivera OB team. Evelina Long PA-C [facility] Securely message with the Native[employer] Console (learn more here) Text page via [employer] Paging/Directory Clinically Significant Risk Factors Present on Admission # Platelet Defect: home medication list includes an antiplatelet medication # Obesity: Estimated body mass index is 35.78 kg/m?? as calculated from the following: Height as of this encounter: 1.6 m (5' 3). Weight as of this encounter: 91.6 kg (202 lb). Chief Complaint Pre-eclampsia History is obtained from the patient, patient's Fahad over the phone, Dr. Dunn, and chart review. History of Present Illness Beatriz Aparicio is a 26 year old female who presents for evaluation of headache, dizziness, and lower extremity swelling reminiscent of her previous episode of preeclampsia with her first . She states she has been having numbness and tingling from her feet up to her thighs. Denies any recent nausea, vomiting, chest pain, shortness of breath, or dysuria she does report urinary frequency at night. The patient states that her neck assists her with checking her blood sugars and administering her insulin. She states that since her recent insulin increase on 2/4 her blood sugars have been better controlled and per her over the phone her fasting blood sugars have been in the 120-140range. The patient states compliant with using her insulin of recent. Review of Systems The 10 point Review of Systems is negative other than noted in the HPI or here. Past Medical History I have reviewed this patient's medical history and updated it with pertinent information if needed. Past Medical History: Diagnosis Date ??? Diabetes (H) GDM ??? Hypertension hx pre-eclampsia in first Past Surgical History I have reviewed this patient's surgical history and updated it with pertinent information if needed. Past Surgical History: Procedure Laterality Date ??? SECTION 2016 Social History I have reviewed this patient's social history and updated it with pertinent information if needed. Social History Tobacco Use ??? Smoking status: Never Smoker ??? Smokeless tobacco: Never Used Vaping Use ??? Vaping Use: Never used Substance Use Topics ??? Alcohol use: Not Currently ??? Drug use: Never Family History I have reviewed this patient's family history and updated it with pertinent information if needed. Family History Problem Relation Age of Onset ??? Diabetes Father ??? Asthma Sister ??? Cerebrovascular Disease Paternal Grandmother ??? Hypertension Other Medications Medications Prior to Admission Medication Sig Dispense Refill Last Dose ??? acetaminophen (TYLENOL) 325 MG tablet Take 325-650 mg by mouth every 6 hours as needed for mild pain ??? aspirin (ASA) 81 MG chewable tablet Take 81 mg by mouth daily 09/19/2021 at Unknown time ??? calcium carbonate (TUMS) 500 MG chewable tablet 1 chew tab ??? famotidine (PEPCID) 10 MG tablet Take 10 mg by mouth 2 times daily 09/19/2021 at Unknown time ??? insulin NPH (HUMULIN N VIAL) 100 UNIT/ML vial Inject 40 Units Subcutaneous every morning 09/20/2021 at am ??? insulin NPH 100 UNIT/ML vial Inject 32 Units Subcutaneous At Bedtime 09/19/2021 at Unknown time ??? insulin regular (HUMULIN R VIAL) 100 UNIT/ML vial Inject 22 Units Subcutaneous every morning 09/20/2021 at am ??? insulin regular 100 UNIT/ML vial Inject 30 Units Subcutaneous At Bedtime 09/19/2021 at Unknown time ??? ondansetron (ZOFRAN-ODT) 4 MG ODT tab Take 4 mg by mouth every 8 hours as needed Allergies No Known Allergies Physical Exam Vital Signs: Temp: 98.4 ??F (36.9 ??C) Temp src: Oral BP: 127/73 Resp: 18 Weight: 202 lbs 0 oz Constitutional: awake, alert, cooperative, no apparent distress, and appears stated age ENT: Normocephalic, without obvious abnormality, atraumatic, sinuses nontender on palpation, external ears without lesions, oral pharynx with moist mucous membranes Respiratory: No increased work of breathing, good air exchange, clear to auscultation bilaterally, no crackles or wheezing Cardiovascular: Normal apical impulse, regular rate and rhythm, normal S1 and S2, no S3 or S4, and no murmur noted GI: gravid, normal bowel sounds, soft, non-distended, non-tender Skin: 1+ bilateral LE edema, normal skin color, texture, turgor and no lesions Neurologic: Awake, alert, oriented to name, place and time. Cranial nerves II- XII are grossly intact. Motor is 5 out of 5 bilaterally. Data Results for orders placed or performed during the hospital encounter of 09/20/21 CBC with platelets Status: Abnormal Result Value Ref Range WBC Count 8.6 4.0 - 11.0 10e3/uL RBC Count 4.20 3.80 - 5.20 10e6/uL Hemoglobin 9.7 (L) 11.7 - 15.7 g/dL Hematocrit 32.8 (L) 35.0 - 47.0 % MCV 78 78 - 100 fL MCH 23.1 (L) 26.5 - 33.0 pg MCHC 29.6 (L) 31.5 - 36.5 g/dL RDW 15.2 (H) 10.0 - 15.0 % Platelet Count 234 150 - 450 10e3/uL Comprehensive metabolic panel Status: Abnormal Result Value Ref Range Sodium 138 133 - 144 mmol/L Potassium 4.0 3.4 - 5.3 mmol/L Chloride 111 (H) 94 - 109 mmol/L Carbon Dioxide (CO2) 22 20 - 32 mmol/L Anion Gap 5 3 - 14 mmol/L Urea Nitrogen 10 7 - 30 mg/dL Creatinine 0.40 (L) 0.52 - 1.04 mg/dL Calcium 8.7 8.5 - 10.1 mg/dL Glucose 114 (H) 70 - 99 mg/dL Alkaline Phosphatase 102 40 - 150 U/L AST 13 0 - 45 U/L ALT 14 0 - 50 U/L Protein Total 6.4 (L) 6.8 - 8.8 g/dL Albumin 2.1 (L) 3.4 - 5.0 g/dL Bilirubin Total 0.1 (L) 0.2 - 1.3 mg/dL GFR Estimate >90 >60 mL/min/1.73m2 Uric acid Status: Normal Result Value Ref Range Uric Acid 3.4 2.6 - 6.0 mg/dL Protein random urine Status: Abnormal Result Value Ref Range Total Protein Random Urine g/L 0.79 g/L Total Protein Urine g/gr Creatinine 0.51 (H) 0.00 - 0.20 g/g Cr Creatinine Urine mg/dL 156 mg/dL Glucose by meter Status: Abnormal Result Value Ref Range GLUCOSE BY METER POCT 122 (H) 70 - 99 mg/dL Asymptomatic COVID-19 Virus (Coronavirus) by PCR Nasopharyngeal Status: Normal Specimen: Nasopharyngeal; Swab Result Value Ref Range SARS CoV2 PCR Negative Negative Narrative Testing was performed using the amanuel?? SARS-CoV-2 & Influenza A/B Assay on the amanuel?? Delfina?? System. This test should be ordered for the detection of SARS-COV-2 in individuals who meet SARS-CoV-2 clinical and/or epidemiological criteria. Test performance is unknown in asymptomatic patients. This test is for in vitro diagnostic use under the FDA EUA for laboratories certified under CLIA to perform moderate and/or high complexity testing. This test has not been FDA cleared or approved. A negative test does not rule out the presence of PCR inhibitors in the specimen or target RNA in concentration below the limit of detection for the assay. The possibility of a false negative should be considere d if the patient's recent exposure or clinical presentation suggests COVID-19. [facility] are certified under the Clinical Laboratory Improvement Amendments of 1988 (CLIA-88) as qualified to perform moderate and/or high complexity laboratory testing. Wet preparation Status: Abnormal Specimen: Vagina; Swab Result Value Ref Range Trichomonas Absent Absent Yeast Absent Absent Clue Cells Absent Absent WBCs/high power field 1+ (A) None KEEPER Associated attestation - Gurjit Manuel MD - 09/29/2021 4:18 PM SHIP KEEPER Physician Attestation I, Gurjit Manuel, have reviewed and discussed with the advanced practice provider their history, physicaland plan for Beatriz Aparicio. I did not participate in a shared visit by interviewing or examining the patient and this should be billed as an advanced practice provider only visit. Gurjit Manuel MD, S Date of Service (when I saw the patient): I did not personally see this patient. documented in this encounter Miscellaneous Notes Plan of Care - Deandra Taylor RN - 09/24/2021 1:29 PM CST Discussed with Dr. Son that patient did not receive her 15 units of NPH prior to discharge. She did receive her 7 units of Novolog per carb count. Ophthalmology Surgical Technician spoke with patient's who helps manage patient's insulin and is aware of what is being worked on; has now sent over prescription forpatient to have OP pharmacy fill this dose (pen), since patient's own personal insulin pens are in [place], [place] and they are still in NICU visiting . is aware that this dose will be brought down for patient to self administer the 15 units. Ophthalmology Surgical Technician then spoke with OP pharmacy, who is currently working on filling this and working with insurance. KEEPER Plan of Care - Deandra Taylor RN - 09/24/2021 1:29 PM CST OP pharmacy will be sending up the needed insulin dose, and sheet writer will bring down to NICU where (discharged) patient remains. KEEPER Plan of Care - Deandra Taylor RN - 09/24/2021 1:29 PM CST Ophthalmology Surgical Technician went down to NICU. Patient signed for filled Rx. Of NPH insulin. Beatriz's spouse, Fahad, administered the 15 units of NPH to Beatriz's right lower abdominal quadrant. Fahad is aware that from now andgoing forward, Beatriz is responsible for letting him know if she is feeling hypo or hyperglycemic. They plan to go home soon at 1800 so Beatriz may receive her evening supper dosages. KEEPER Result Encounter Note - Valeria Carias MD - 09/24/2021 1:29 PM CST MFM results and recommendations reviewed. Valeria Carias MD KEEPER Plan of Care - Deandra Taylor RN - 09/24/2021 11:58 AM CST Both MD and Hospitalist have rounded and gave OK for discharge to home later today. Discharge meds are being dispensed and will be issued as well as how/when to take. MD removed lower abdominal dressing over incision line. [place] are present and patient aware to follow up on for their removal, and in 6- 8 weeks for PP check. No signs of infection noted to surrounding tissue. Intradry applied to incision line in abdominal fold with extra piece issued for later use. Explained to not leave this in at all times, but to observe incision line at a minimum 1x day. Voiding without difficulty. OT 107. Patient ordered food and scheduled insulin will be issued as well for carb counts. IV SL removed; patient tearful with this prior to sheet writer even beginning to remove. No sliding scale insulin neededat this time. Continues to pump and give EBM to NICU for . Breast pump issued. Patient was able to get up on own, walk to bathroom and is now on sitting stool in shower. Pain is being managed with Tylenol and Ibuprofen, and PRN Oxycodone. Will discharge to home this afternoon. Spouse is supportive and at bedside. KEEPER Plan of Care - Deandra Taylor RN - 09/24/2021 9:[address] Son rounded this AM, but patient in NICU. MD will round again later. MD gave verbal order for foam tape dressing to be removed and for alicia to remain in place. Patient is to then follow upin clinic in 1 week for staple removal. Patient remains in NICU and will be updated upon return. KEEPER Plan of Care - Argentina Barlow RN - 09/24/2021 5:54 AM CST Pt went to NICU to pump and visit jonel Tatum. Pumping is going well and pt is getting some colostrum. VSS Lochia and fundus WDL. BG at 0200 was 178. Taking tylenol, ibuprofen and using a heat pack for pain 02/17. Refused to take dressing off of incision until comes for moral support in fear of pain. Will continue to monitor pt. KEEPER Plan of Care - Rufina Mcpherson RN - 09/23/2021 5:34 PM CST Pt up ad dusty and ambulating . Pt is breastpumping. certificate and depression scale done . ROP given with instructions . Insulin given . See mar. Blood sugar pre meal (Lunch) at 1700 is 183 . KEEPER Note - Emperatriz Benitez RN - 09/23/2021 2:55 PM CST Ophthalmology Surgical Technician checking in with patient to do education on pumping. Reviewed frequency, settings and cleaning and care of pump. Patient wanting pump turned to highest level as she says she doesn't tend to havefeeling in nipples, after discussing nipple tenderness. Good volumes pumped to bring down to infant.Beatriz's states sleepy under phototherapy. Offered assistance if gets to breast today. Called down to help with a feed. Breasts large nipple pointing downwards. Football hold may be easier for latch. Small shield applied and breast milk expressed into shield. Baby would open latch no seal. Couple of non nutritive sucks noted. Encouraged patient to pump. KEEPER Plan of Care - Caridad Stout RN - 09/23/2021 1:59 PM CST Patient doing better this shift. Up to shower and visiting in NICU. After returning from NICUthis AM patient stated she didn't feel well and thought she might vomit, blood sugar and blood pressure checked, WDL. Patient in bed and ate and felt better. Patient thinks she could have been feeling this way from incisional pain, and sitting in wheelchair in NICU for long period of time. Using tylenol and ibuprofen for pain. Education and pumping gone over with patient. Plan to discharge tomorrow. KEEPER Provider Notification - Any Andrade RN - 09/23/2021 11:28 AM CST 09/23/21 1128 Provider Notification Provider Name/Title Dr. Freedman Method of Notification Phone Notification Reason Lab Results Called MD for clarification on whether to give NPH with blood sugar of 107. Patient eating currently. Orders received to give NPH 15 units as ordered. KEEPER Note - Emperatriz Benitez RN - 09/23/2021 11:06 AM CST in to see patient yesterday 09/22/2021 baby in NICU. Discussed pumping every 2-3 hours to help bring in milk supply. Encouraged using hands on pumping and hand expressing. Knows to do STS wheninfant stable. to follow if patent would like help with latching when ready. KEEPER Plan of Care - Judie Ochoa RN - 09/23/2021 4:54 AM CST VSS. Denies s/s of PreE. Pain controlled, see MAR. Blood sugars still elevated, see MAR for insulin given. Dressing: c/d/I. Fundal checks and bleeding WNL. Voiding without difficulty; frequent voiding encouraged. +BS. Passing flatus. BM yesterday. Tolerating regular diet. Pumping occasionally. Went tosee in NICU x1. NICU Ipad at bedside. KEEPER Plan of Care - Any Ruiz RN - 09/22/2021 6:09 PM CST Pt meeting expected outcomes. Vitals stable, monitoring every 4 hours. +2 reflexes, no clonus. Denies BEAN, epigastric pain, blurry vision. Does have +2 BLE edema. Magnesium turned off at 1500. Fundus firm and midline. Incision dressing C/D/I. Pain controlled with oral medications. Pumping for inNICU. Requiring minimal staff assistance with moving, Fahad helping when he's here. Pt tearful on and off this shift. Monitoring blood sugars AC/HS & 0200, on insulin (see eMAR). Blood sugars continue to be elevated. Orders put in this afternoon for carb count correction with meals, pt has not eaten dinner. KEEPER Plan of Care - Allison Núñez RN - 09/22/2021 5:57 AM CST VSS. Assessment WNL. Donovan in place and patent; adequate output overnight. Reflexes WNL; no clonus noted. Mag and LR infusing. Able to transfer to wheelchair and take a few steps; still not feeling steady on feet but doing better this AM. Pumping. Visiting baby in NICU frequently. Incision covered with foam tape; CDI. Pain managed with tylenol, toradol, and oxycodone PRN. Baby visible on iPad. Encouraged to call for help as needed. Will continue with plan of care. KEEPER Plan of Care - Hermila Wang RN - 09/21/2021 7:39 PM CST Data: Beatriz Aparicio transferred to [facility] via cart at 1914. Baby in NICU. Went to CT and NICU between being in LD and . Action: Receiving unit notified of transfer: Yes. Patient and family notified of room change. Reportgiven to Majo at 1914. Belongings sent to receiving unit. Accompanied by Registered Nurse. Oriented patient to surroundings. Call light within reach. ID bands double-checked with receiving RN. Response: Patient tolerated transfer and is stable. KEEPER L&D Delivery Note - Lore Son MD - 09/21/2021 5:35 PM SHIP KEEPER Delivery Summary Beatriz Aparicio Age: [age] year old Date of : 1995 Maritza Aparicio-Beatriz [[id number]] Labor Length 3rd Stage (hrs): 0 (min): 2 Delivery/Placenta Date and Time Delivery Date: 09/21/21 Delivery Time: 3:03 PM Placenta Date/Time: 09/21/2021 3:05 PM Delivering clinician: Lore Son MD Other personnel present at delivery: Provider Role Savana Saavedra RN Blouin, Helen, RN Abdullahi, Isahaq Mohamed, MD Lay Out Technician Apgars Living status: Living 1 Minute 5 Minute 10 Minute 15 Minute 20 Minute Skin color: 1 1 Heart rate: 2 2 Reflex irritability: 2 2 Muscle tone: 2 2 Respiratory effort: 1 2 Total: 8 9 Apgars assigned by: SAMRA TRIANA APRN, CNP Cord Vessels: 3 Vessels Cord Complications: None [place] Resuscitation Methods: Oxygen, NCPAP, Bag Mask, Oximetry, Temp Skin Control, Temp Skin Probe, John [place] Puff Care at Delivery: NICU team called on behalf of Dr Son for a C- section under general anesthesia due to maternal pre-eclampsia and recent maternal seizure as well as poorly controlled DM2,infant is premature at 34 5/7 weeks. Infant cried immediately after his and received 1 minute of delayed cord clamping, then brought to the radiant warmer for further drying and stimulation. with fair aeration, CPAP 6 cms 30% applied. Infant became apneic when not crying and positive pressure ventilation 24/6 rate 40 30% was started at 1 1/2 minutes of age. He received 1 minute of PPV, then transitioned back to CPAP 6 cms. Saturations improved into the upper 80s by 7 minutes of age. Unable to wean off oxygen or CPAP. To the NICU for further management. Samra Triana APRN, CNP 09/21/2021 3:59 PM Labor Events and Shoulder Dystocia Tracing Prior to Delivery: Category 1 Delivery (Maternal) (Provider to Complete) ([id number]) Blood Loss Mother: Beatriz Aparicio #[id number] Start of Mother's Information Delivery Blood Loss 09/21/21 1456 - 09/21/21 1735 Total Surgical QBL Blood Loss (mL) Hospital Encounter 1227 mL Total 1227 mL End of Mother's Information Mother: Beatriz Aparicio #[id number] Delivery - Provider to Complete ([id number]) Delivering clinician: Lore Son MD Delivery Type (Choose the 1 that will go to the History): , Low Transverse Priority: STAT Specifics: Repeat Indications for Repeat: Other Other Indications: eclampsia Other personnel: Provider Role Savana Saavedra RN Blouin, Helen, RN Abdullahi, Isahaq Mohamed, MD Lay Out Technician Placenta Date/Time: 09/21/2021 3:05 PM Removal: Spontaneous Disposition: Pathology Anesthesia Method: General Presentation and Position Presentation: Vertex Occiput Anterior Lore Son MD KEEPER Provider Notification - Xochitl Mishra RN - 09/21/2021 5:34 PM SHIP KEEPER 09/21/21 345 Provider Notification Provider Name/Title Dr Rhoades Method of Notification Phone Request Evaluate-Remote Notification Reason Lab Results Updated MD that the hospitalist has been following pt for her type 2 DM, pt had stat , justarrived to L&D from PACU, on clear liquid diet, and BG level of 239. gave TORB to check BG levels every 4hrs and to use Novolog sliding scale orders. KEEPER Op Note - Lore Son MD - 09/21/2021 4:34 PM CST [facility] Full Operative Note Patient Name:Beatriz Aparicio Date of : 1995 Surgery Date: 09/21/2021 Surgeon: Lore Son MD Pre-operative Diagnosis: 1) Intrauterine at 34w5d 2) Eclampsia 3) Poorly controlled Type 2Diabetes Mellitus 4) History of previous section Post-operative Diagnosis: Viable male , delivered Procedure: Stat activated repeat low transverse section via Pfannenstiel skin incision withtwo layer uterine closure Anesthesia: General endotacheal FRA Score: 2 EBL: 1227 mL IV fluids: Refer to anesthesia records Urine Output: Refer to anesthesia records (yellow clear colored at the end of the procedure) Complications: None Specimen: Placenta Drains: Donovan catheter Findings: Viable male infant delivered in cephalic presentation at 1503 on 09/21/2021. No nuchal cord. Clear amniotic fluid. Weight 6 lbs 0 oz. Agpar 8 and 9 at 1 and 5 minutes, respectively. Normal appearing uterus, bilateral fallopian tubes and ovaries. No intraperitoneal adhesions noted. Dense fascia to the underlying anterior peritoneum. Indication: Ms. Beatriz Aparicio 26 year old at 34w5d who was admitted at 34w4d for pre-eclampsia without severe features (based on elevated mild range blood pressure readings and proteinuria). Shewas also admitted to get corticosteroid administered given her gestational age andconcern for possible delivery if her pre-eclampsia worsens. On HD#2, she unfortunately experienced a eclamptic seizure. She was treated for severe range blood pressure reading and was started on IV magnesium sulfate for recurrent eclampsia prophylaxis. It was recommended at that time, given her eclampsia, that she be delivered expediently to prevent recurrence of eclampsia. She was consented for a stat repeat section. Risk of the surgery were reviewed with patientand her significant other. Patient verbalized understanding of risks and agreed to proceed. She signed the consent form. Technique: The patient was taken to the operating room where she was transferred to the OR table from her hospital bed and placed in supine position. Patient was prepped and draped in the usual sterilefashion. Spinal anesthesia was administered and found to be adequate. The OR table was tilted to theleft. A formal TIME-OUT was conducted with correct identification of the patient and procedure beingperformed. A Pfannenstiel skin incision was made with the scalpel and carried down to the underlying fascia with the scalpel. The fascia was incised at the midline and extended laterally using Murphy scissors. The superior and inferior aspects of the fascia were grasped with Israel clamps, lifted and dissected off the underlying rectus muscles in a sharp fashion. The rectus muscles were in the midline in a digital blunt fashion. The peritoneum was entered in a digital blunt fashion and extended superiorly and inferiorly with careful attention to avoid injury to the bowel and bladder. Once adequate extension of the peritoneum was achieved to allow for eventual delivery of the baby, the Zack 0 retractor was inserted into the peritoneum. A lower uterine segment incision was made with the scalpel and extended laterally in a digital bluntfashion. The head was grasped, elevated and delivered along with the rest of the through the hysterotomy without difficulty. The infant was handed off to the waiting nursery team. The cord was clamped, cut and handed off to the waiting nursery team. Cord gases were collected and sent. The placenta was delivered spontaneously using gentle traction of the cord. The uterus was exteriorized and cleared of all clots and debris. Gentle massage was employed to achieve firmness to the uterus along with the instillation of uterotonics in the way of IV Pitocin in normal saline as well as IM Hemabate and IV tranexamic acid. The hysterotomy incision was repaired with 0 Vicryl in a running locked fashion. An imbricating layer along the repaired hysterotomy was made using 0 Monocryl in a running fashion. The repaired hysterotomy incision was inspected for hemostasis and deemed adequate. The posterior cul-de-sac was irrigated and suctioned, and the uterus returned to the abdomen. The repaired hysterotomy inspected for adequate hemostasis. The Zack 0 retraction was removed from the peritoneum. Sepra film was applied over the repaired hysterotomy incision and the uterine fundus. The peritoneum was not re-approximated. The rectus muscles were inspected for adequate hemostasis and not re-approximated. The fascia layer was reapproximated using 0 looped PDS in a running fashion with anchor stitches at the lateral angles of the fascia and the sutures tied together at the midline. The subcutaneous layer was irrigated, inspected for adequate hemostasis and re- approximated using 3-0plain gut in interrupted fashion in two layer. The skin was closed with alicia. The patient tolerated the procedure well and was taken to the area in stable condition. 2grams of IV ancef was given during the procedure. Sponge, laps and needle counts were correct x 2. Lore Son MD [facility] KEEPER Plan of Care - Maria De Jesus Florian RN - 09/21/2021 3:03 PM CST 1328 Called into patient room by , patient had been sitting up in bed to eat lunch, plan was to call out to monitor baby and do 2nd BMZ at 1330,RN entered room mom was laying in bed awake and she was able to respond to spoken voice saying she was weak and dizzy and the headache was back, patient shaking of legs said patient was eating and suddenly laid back in bed and her eyes rolled and she was shaking,called for glucometer and Rapid Response team, serial BP's started, 1335 OT 174,CLOUD ADMINISTRATOR present EKG requested, patient legs shaking, serial BP's, bedside US to obtain FHR, difficult to trace at 1339, Dr Blanc OB on unit at bedside US to check BS 1341 Dr Grant in house at bedside, EKG done patient responding to voices, complains of dizziness andheadache 1344 Dr Torrez at bedside, additional IV started, labs drawn, patient [address] Torrez, patient says she is having contractions abdomen palpates soft, IV Benadryl given for headache, IV Labetalol for BP given 1358 loading dose of Mag started, 1410 serial BP's, headache better, discussion regarding doing C/S now, patient reluctant wants to wait, Dr Son discussing and consenting patient 1435 Consents signed, denies headache, feels flushed, donovan in patient wants to get up out of bed does not like the donovan catheter, in bed being wheeled to OR 7 KEEPER Utilization Review - Gilbert Madrigal MD - 09/21/2021 1:33 PM CST Admission Status; Secondary Review Determination Under the authority of the Utilization Management Committee, the utilization review process indicated a secondary review on the above patient. The review outcome is based on review of the medical records, discussions with staff, and applying clinical experience noted on the date of the review. (x) Inpatient Status Appropriate - This patient's medical care is consistent with medical managementfor inpatient care and reasonable inpatient medical practice. RATIONALE FOR DETERMINATION 26 year old female who is currently at 34w4d with PMH significant for uncontrolled DM2, h/o severe preeclampsia s/p at 35w6d at [facility] in 2017, previous COVID infection (08/24/21), obesity, and anxiety who presents for pre-eclampsia evaluation. Patient requires inpatient admission versus short stay observation or outpatient treatment for the following reasons: Complex patient failed outpatient management she has been in outpatient status for more than 24 hours she has preeclampsia with severe features, receiving betamethasone for premature co ntractions which is making her blood sugar poorly controlled in the setting of type 2 diabetes mellitus in . Discussed with the attending physician Dr. Son she needs at least another 24 to 48 hours of ongoing hospital care to treat the above The expected length of stay at the time of admission was more than 2 nights because of the severity of illness, intensity of service provided, and risk for adverse outcome. Inpatient admission is appropriate. This document was produced using voice recognition software The information on this document is developed by the utilization review team in order for the business office to ensure compliance. This only denotes the appropriateness of proper admission status and does not reflect the quality of care rendered. The definitions of Inpatient Status and Observation Status used in making the determination above are those provided in the CMS Coverage Manual, Chapter 1 and Chapter 6, section 70.4. Sincerely, GILBERT MADRIGAL MD [employer] Lab TechnicianAssistant Spa Director [facility]. KEEPER Plan of Care - Maria De Jesus Florian RN - 09/21/2021 1:13 PM CST here with [employer] food, Blood sugar rechecked, headache better KEEPER Plan of Care - Maria De Jesus Florian RN - 09/21/2021 12:01 PM CST Headache is easing up, patient in good spirits, visiting on phone most of morning, occasional contraction but none consistent, fetus active, refuses to use sequentials, leg exercises encouraged, up to bathroom Food ordered from cafeteria so blood sugar checked, patient decided not to eat it waiting for Significant other to arrive with some food, KEEPER Plan of Care - Maria De Jesus Florian RN - 09/21/2021 8:40 AM CST Patient continues to complain of pain in both legs with numbness and tingling and aching from swelling, does not like sequentials on lower calves,US ordered to rule out DVT patient up and into wheelchair down to US KEEPER Provider Notification - Radha Lou RN - 09/21/2021 5:35 AM CST 09/21/21 0534 Provider Notification Provider Name/Title Dr Dunn Method of Notification Phone Request Evaluate - Remote Notification Reason Status Update Updated MD of pt report of cx again, pt states she feels pressure and has abdominal tenderness and back pain. Pt cx q5 minutes, palpating very mild. Abdomen soft. Pt is intentionally bearing down (pt was educated on not doing this) but continues. Pt reports no improvement in headache, and denies wanting anything for pain. Per MD continue to monitor. KEEPER Provider Notification - Radha Lou RN - 09/21/2021 4:19 AM CST 09/21/21 0419 Provider Notification Provider Name/Title Dr Dunn Method of Notification Phone Request Evaluate - Remote Notification Reason Status Update Updated MD of pt c/o headache. Pt declined ambien but was able to sleep. Pt denies feeling abdominalpain/vaginal pressure. Pt HR elevated at 120-130 likely r/t being started by RN for VS. Orders received for tylenol. KEEPER Provider Notification - Radha Lou RN - 09/21/2021 1:48 AM CST 09/21/21 0147 Provider Notification Provider Name/Title Dr Dunn Method of Notification Phone Request Evaluate - Remote Updated MD of cx appear to be spacing out via toco, occurring q 3-7 minutes. cx palpating very mild,but pt reports pain of 8/10. Pt states she feels vaginal pressure, back pain, and cx constantly. States abdomen is tender to palpation but does not respond physically to palpation. Pt offered pain medication but she declined. tracing with moderate variability and accelerations. RN having hard time discerning pain vs anxiety. Orders received to offer ambien for rest, remove external monitors, and keep IV at TKO. KEEPER Provider Notification - Radha Lou RN - 09/21/2021 12:26 AM SHIP KEEPER 09/21/21 0026 Provider Notification Provider Name/Title Dr Dunn Method of Notification At Bedside MD at bedside. Updated on cx now 2-3 minutes apart palpating mild, recent BP 133/85, 2hr post meal BG 170. Pt c/o pins and needles in legs similar to admission. MD will put in order for nifedipine q 6. KEEPER Provider Notification - Karolyn Samayoa RN - 09/21/2021 12:25 AM SHIP KEEPER 09/21/21 0025 Provider Notification Provider Name/Title Dr. Dunn Method of Notification In Department Primary nurse requested to page . MD in department. Informed that patient is a fingertip and uncomfortable with her contractions. Primary nurse to begin IV fluids. KEEPER Provider Notification - Radha Lou RN - 09/21/2021 12:11 AM SHIP KEEPER 09/21/21 0011 Provider Notification Provider Name/Title Dr Dunn Method of Notification Phone Updated MD of pt c/o vaginal pressure. toco applied and showing cx q 2-5 minutes palpating very mild. tracing moderate with accelerations. Pt does not have an IV. Orders received to start IV [id number] bolus, check SVE and if anything other than closed cervix update md. KEEPER Provider Notification - Velia Mares RN - 09/20/2021 6:14 PM CST 09/20/214 Provider Notification Provider Name/Title Pharmacy Method of Notification Phone Called pharmacy again seeking verification of pts evening suppertime insulin. Per pharmacist this cannot be verified until confirmation is received from hospitalist. Verification pending clarification. KEEPER Provider Notification - Velia Mares RN - 09/20/2021 5:52 PM CST 09/20/21 1752 Provider Notification Provider Name/Title Pharmacy Method of Notification Phone Called pharmacy d/t regular insulin not yet verified or sent up yet and pt would like to eat dinner.Pharmacist states she would like to clarify orders with hospitalist prior to verification. Will await pharmacy to verify/send prior to pt eating evening meal. KEEPER Provider Notification - Velia Mares RN - 09/20/2021 5:30 PM CST 09/20/21 9327 Provider Notification Provider Name/Title Dr. Dunn Method of Notification In Department Request Evaluate - Remote Spoke with MD in department about challenges of monitoring today. VORB per MD for reactive NSTQshift unless change in status r/t pre-eclampsia. KEEPER Pharmacy-Admission Medication History - Dexter Tatum [facility] - 09/20/2021 4:56 PM SHIP KEEPER Admission medication history interview status for this patient is complete. See [facility] admission navigator for allergy information, prior to admission medications and immunization status. 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 n (Y/N) Prior to Admission medications Medication Sig Last Dose Taking? Auth Provider acetaminophen (TYLENOL) 325 MG tablet Take 325-650 mg by mouth every 6 hours as needed for mild painYes Reported, Patient aspirin (ASA) 81 MG chewable tablet Take 81 mg by mouth daily 09/19/2021 at Unknown time Yes Reported,Patient calcium carbonate (TUMS) 500 MG chewable tablet 1 chew tab Yes Reported, Patient famotidine (PEPCID) 10 MG tablet Take 10 mg by mouth 2 times daily 09/19/2021 at Unknown time Yes Reported, Patient insulin NPH (HUMULIN N VIAL) 100 UNIT/ML vial Inject 40 Units Subcutaneous every morning 09/20/2021 at am Yes Reported, Patient insulin NPH 100 UNIT/ML vial Inject 32 Units Subcutaneous At Bedtime 09/19/2021 at Unknown time Yes Unknown, Entered By History insulin regular (HUMULIN R VIAL) 100 UNIT/ML vial Inject 22 Units Subcutaneous every morning 09/20/2021 at am Yes Reported, Patient insulin regular 100 UNIT/ML vial Inject 30 Units Subcutaneous At Bedtime 09/19/2021 at Unknown time Yes Unknown, Entered By History ondansetron (ZOFRAN-ODT) 4 MG ODT tab Take 4 mg by mouth every 8 hours as needed Yes Reported, Patient KEEPER Provider Notification - Velia Mares RN - 09/20/2021 3:12 PM CST 09/20/21 1510 Provider Notification Provider Name/Title Dr. Dunn Method of Notification At Bedside Request Evaluate in Person Notification Reason Other (Comment) MD at bedside to discuss POC. - Course of BMZ steroids followed by 24hrs observation - Monitor BGs and administer insulin per orders from hospitalist - VS monitoring Q4h and continue to monitor sx of pre-eclampsia - and uterine monitoring Pt verbalized understanding of POC and has no questions at this time. Pts was on the phone and all his questions were answered as well. KEEPER Plan of Care - Velia Mares RN - 09/20/2021 12:40 PM CST D/t PCR 0.51, POC is for pt to stay and receive BMZ x2, continue to have VS monitoring for at least 4 hours. VORB per MD continuous and uterine monitoring, hospital consult to manage BGs and insulin orders, NICU consult, VS Q4h. Pt verbalized understanding of POC and has no questions at this time. Admitted to room 408. KEEPER Provider Notification - Velia Mares RN - 09/20/2021 11:30 AM SHIP KEEPER 09/20/21 1130 Provider Notification Provider Name/Title Dr. Dunn Method of Notification At Bedside Request Evaluate in Person Dr. Dunn at bedside to evaluate pt and discuss POC. Per discussion, will continue serial Bps Q15 mins, draw pre-e labs, send wet prep d/t vaginal sx.. Will evaluate lab results then determine further POC. Pt verbalized understanding and agreement. KEEPER Plan of Care - Velia Mares RN - 09/20/2021 11:15 AM CST Data: [facility] to [facility]: 09/20/2021 10:41 AM. Reason for maternal/ assessment is increased swelling since 1-2 days ago, headache, pins and needles in legs since last night; foul smelling vaginal discharge. Patient reports that she has increased discomfort that feels like pins and n eedles in her legs since last night, and has had increased swelling since 1-2 days ago. Patient is a . record reviewed. has been complicated by gestational diabetes, insulin controlled and hx of pre-eclampsia in previous . Gestational Age 34w4d. VSS. movement active. Patient denies uterine contractions, leaking of vaginal fluid/rupture of membranes, vaginal bleeding, abdominal pain, pelvic pressure, nausea, vomiting. Support person Fahad is present, however he was accompanied with the pts 5 year old son and they were asked to leave due to the unit's current COVID visitor restriction policy. Action: Verbal consent for EFM. Triage assessment completed. Bill of rights reviewed. Response: Patient verbalized agreement with plan. Will contact Dr Jian Dunn with updateand for further orders. KEEPER Plan of Care - Maria De Jesus Florian RN - 09/20/2021 11:11 AM CST Data: Patient assessed in the [facility] for PreEclampsia evaluation Action: EFM/EUM on , serial BP's Response: Orders per Jian Dunn. Patient verbalized understanding of education and verbalized agreement with plan. KEEPER documented in this encounter Plan of Treatment Upcoming Encounters Date Type Specialty Care Team Description 07/26/2022 Appointment Radiology. Dion Ramirez MD [address] [place] [address] Liliana Wright MD [address] [facility] [place] [address] [place] [address] 07/26/2022 Office Visit Maternal and Dion Ramirez MD [address] [place], [place] [id number] Medicine Liliana Wright MD [address] [facility] [address] [place], [place] [address] 08/13/2022 Appointment Cardiology Dion Ramirez MD [address] [place], [place] [id number] (Wo rk) documented as of this encounter Procedures Procedure Name Priority Date/Time Associated Comments Diagnosis GLUCOSE BY METER Routine 09/24/2021 10:51 Results for this AM SHIP KEEPER procedure are i n the results section. GLUCOSE BY METER Routine 09/24/2021 2:02 Results for this AM SHIP KEEPER procedure are i n the results section. GLUCOSE BY METER Routine 09/23/2021 9:46 Results for this PM SHIP KEEPER procedure are i n the results section. GLUCOSE BY METER Routine 09/23/2021 4:49 Results for this PM SHIP KEEPER procedure are i n the results section. GLUCOSE BY METER Routine 09/23/2021 11:05 Results for this AM SHIP KEEPER procedure are i n the results section. GLUCOSE BY METER Routine 09/23/2021 2:24 Results for this AM SHIP KEEPER procedure are i n the results section. GLUCOSE BY METER Routine 09/22/2021 8:42 Results for this PM SHIP KEEPER procedure are i n the results section. GLUCOSE BY METER Routine 09/22/2021 2:42 Results for this PM SHIP KEEPER procedure are i n the results section. COMPREHENSIVE STAT 09/22/2021 10:42 Results fo r this METABOLIC PANEL AM SHIP KEEPER procedure ar e in the results section. GLUCOSE BY METER Routine 09/22/2021 9:15 Results for this AM SHIP KEEPER procedure are i n the results section. HEMOGLOBIN Routine 09/22/2021 7:18 Results for this AM SHIP KEEPER procedure are i n the results section. CBC WITH PLATELETS STAT Add-on 09/22/2021 7:18 Result s for this AM SHIP KEEPER procedure are i n the results section. GLUCOSE BY METER Routine 09/22/2021 5:54 Results for this AM SHIP KEEPER procedure are i n the results section. GLUCOSE BY METER Routine 09/22/2021 1:08 Results for this AM SHIP KEEPER procedure are i n the results section. GLUCOSE BY METER Routine 09/21/2021 9:34 Results for this PM SHIP KEEPER procedure are i n the results section. CT HEAD W/O CONTRAST Routine 09/21/2021 6:33 Resu lts for this PM SHIP KEEPER procedure are i n the results section. GLUCOSE BY METER Routine 09/21/2021 5:19 Results for this PM SHIP KEEPER procedure are i n the results section. PLACENTA PATH ORDER Routine 09/21/2021 3:35 Resul ts for this AND INDICATIONS PM SHIP KEEPER procedure ar e in the results section. SECTION 09/21/2021 2:19 34 weeks gestation PM SHIP KEEPER of MAGNESIUM STAT 09/21/2021 2:07 Results for this PM SHIP KEEPER procedure are i n the results section. CREATININE STAT 09/21/2021 2:05 Results for this PM SHIP KEEPER procedure are i n the results section. AST STAT 09/21/2021 2:05 Results for this PM SHIP KEEPER procedure are i n the results section. ALT STAT 09/21/2021 2:05 Results for this PM SHIP KEEPER procedure are i n the results section. CBC WITH PLATELETS STAT 09/21/2021 2:05 Result s for this PM SHIP KEEPER procedure are i n the results section. EKG 12-LEAD, TRACING STAT 09/21/2021 1:45 Resu lts for this ONLY PM SHIP KEEPER procedure are i n the results section. GLUCOSE BY METER Routine 09/21/2021 1:36 Results for this PM SHIP KEEPER procedure are i n the results section. GLUCOSE BY METER Routine 09/21/2021 1:00 Results for this PM SHIP KEEPER procedure are i n the results section. GLUCOSE BY METER Routine 09/21/2021 11:47 Results for this AM SHIP KEEPER procedure are i n the results section. GLUCOSE BY METER Routine 09/21/2021 10:30 Results for this AM SHIP KEEPER procedure are i n the results section. COMPREHENSIVE STAT 09/21/2021 10:27 Results fo r this METABOLIC PANEL AM SHIP KEEPER procedure ar e in the results section. CBC WITH PLATELETS STAT 09/21/2021 10:27 Resul ts for this AM SHIP KEEPER procedure are i n the results section. US LOWER EXTREMITY STAT 09/21/2021 9:24 Result s for this VENOUS DUPLEX AM SHIP KEEPER procedure are in BILATERAL the results section. GLUCOSE BY METER Routine 09/21/2021 7:30 Results for this AM SHIP KEEPER procedure are i n the results section. TYPE AND SCREEN, Routine 09/21/2021 6:32 Results for this ADULT AM SHIP KEEPER procedure are i n the results section. ABO/RH TYPE AND Routine 09/21/2021 6:32 Results f or this SCREEN AM SHIP KEEPER procedure are i n the results section. COMPREHENSIVE Routine 09/21/2021 6:31 Results for this METABOLIC PANEL AM SHIP KEEPER procedure ar e in the results section. CBC WITH PLATELETS Routine 09/21/2021 6:31 Result s for this AM SHIP KEEPER procedure are i n the results section. GLUCOSE BY METER Routine 09/21/2021 2:07 Results for this AM SHIP KEEPER procedure are i n the results section. GLUCOSE BY METER Routine 09/21/2021 12:09 Results for this AM SHIP KEEPER procedure are i n the results section. GLUCOSE BY METER Routine 09/20/2021 9:31 Results for this PM SHIP KEEPER procedure are i n the results section. GLUCOSE BY METER Routine 09/20/2021 6:59 Results for this PM SHIP KEEPER procedure are i n the results section. GLUCOSE BY METER Routine 09/20/2021 5:45 Results for this PM SHIP KEEPER procedure are i n the results section. COVID-19 VIRUS STAT 09/20/2021 2:42 Results fo r this (CORONAVIRUS) BY PCR PM SHIP KEEPER procedu re are in the results section. GROUP B STREP PCR Routine 09/20/2021 2:42 Results for this PM SHIP KEEPER procedure are i n the results section. MFM BPP SINGLE Routine 09/20/2021 2:01 Results fo r this PM SHIP KEEPER procedure are i n the results section. WET PREPARATION Routine 09/20/2021 11:39 Results for this AM SHIP KEEPER procedure are i n the results section. URIC ACID STAT 09/20/2021 11:36 Results for this AM SHIP KEEPER procedure are i n the results section. PROTEIN RANDOM URINE STAT 09/20/2021 11:36 Res ults for this AM SHIP KEEPER procedure are i n the results section. COMPREHENSIVE STAT 09/20/2021 11:36 Results fo r this METABOLIC PANEL AM SHIP KEEPER procedure ar e in the results section. CBC WITH PLATELETS STAT 09/20/2021 11:36 Resul ts for this AM SHIP KEEPER procedure are i n the results section. GLUCOSE BY METER Routine 09/20/2021 11:17 Results for this AM SHIP KEEPER procedure are i n the results section. documented in this encounter Results (ABNORMAL) Glucose by meter (09/24/2021 10:51 AM SHIP KEEPER) P athologist Signature GLUCOSE BY 107 (H) 70 - 99 09/24/2021 [facility] METER POCT mg/dL 10:58 AM SHIP KEEPER POC Specimen (Source) Anatomical Collection Method Collection Time Re ceived Time Location / / Volume Laterality Blood, Capillary BLOOD SPECIMEN / 09/24/2021 10:51 Unknown AM SHIP KEEPER 10:58 AM SHIP KEEPER Lore CHENG - [employer]on[employer] POCT Performing Organization Address City/[facility]/ZIP Code [place] [address] Care Lab [address] Lab (1st floor, no room number) (ABNORMAL) Glucose by meter (09/24/2021 2:02 AM SHIP KEEPER) P athologist Signature GLUCOSE BY 178 (H) 70 - 99 09/24/2021 [facility] METER POCT mg/dL 2:09 AM SHIP KEEPER POC Specimen (Source) Anatomical Collection Method Collection Time Re ceived Time Location / / Volume Laterality Blood, Capillary BLOOD SPECIMEN / 09/24/2021 2:02 09/11 2:09 Unknown AM SHIP KEEPER AM SHIP KEEPER Lore CHENG - BEAKER POCT Performing Organization Address City/[facility]/ZIP Code Phon [place] [address] Care Lab [address] Lab (1st floor, no room number) (ABNORMAL) Glucose by meter (09/23/2021 9:46 PM SHIP KEEPER) P athologist Signature GLUCOSE BY 167 (H) 70 - 99 09/23/2021 [facility] METER POCT mg/dL 9:53 PM SHIP KEEPER POC Specimen (Source) Anatomical Collection Method Collection Time Re ceived Time Location / / Volume Laterality Blood, Capillary BLOOD SPECIMEN / 09/23/2021 9:46 09/11 9:53 Unknown PM SHIP KEEPER PM SHIP KEEPER Lore Son MD LAB - BEAKER POCT Performing Organization Address City/[facility]/ZIP Code [place] [address] Care Lab [address] Lab (1st floor, no room number) (ABNORMAL) Glucose by meter (09/23/2021 4:49 PM SHIP KEEPER) P athologist Signature GLUCOSE BY 183 (H) 70 - 99 09/23/2021 [facility] METER POCT mg/dL 4:58 PM SHIP KEEPER POC Comment: Dr/RN Notified Specimen (Source) Anatomical Collection Method Collection Time Re ceived Time Location / / Volume Laterality Blood, Capillary BLOOD SPECIMEN / 09/23/2021 4:49 09/11 4:58 Unknown PM SHIP KEEPER PM SHIP KEEPER Lore FERNÁNDEZ POCT Performing Organization Address City/[facility]/ZIP Code [place] [address] Care Lab [address] Lab (1st floor, no room number) (ABNORMAL) Glucose by meter (09/23/2021 11:05 AM SHIP KEEPER) P athologist Signature GLUCOSE BY 107 (H) 70 - 99 09/23/2021 [facility] METER POCT mg/dL 11:22 AM SHIP KEEPER POC Specimen (Source) Anatomical Collection Method Collection Time Re ceived Time Location / / Volume Laterality Blood, Capillary BLOOD SPECIMEN / 09/23/2021 11:05 Unknown AM SHIP KEEPER 11:22 AM SHIP KEEPER Lore Son MD LAB - BEAKER POCT Performing Organization Address City/[facility]/ZIP Code [place] [address] Care Lab [address] Lab (1st floor, no room number) (ABNORMAL) Glucose by meter (09/23/2021 2:24 AM SHIP KEEPER) P athologist Signature GLUCOSE BY 198 (H) 70 - 99 09/23/2021 [facility] METER POCT mg/dL 2:31 AM SHIP KEEPER POC Specimen (Source) Anatomical Collection Method Collection Time Re ceived Time Location / / Volume Laterality Blood, Capillary BLOOD SPECIMEN / 09/23/2021 2:24 0210/2021 2:31 Unknown AM SHIP KEEPER AM SHIP KEEPER Lore Son MD LAB - BEAKER POCT Performing Organization Address City/State/ZIP Code [place] [address] Care Lab [address] Lab (1st floor, no room number) (ABNORMAL) Glucose by meter (09/22/2021 8:42 PM SHIP KEEPER) P athologist Signature GLUCOSE BY 220 (H) 70 - 99 09/22/2021 [facility] LABORATORY METER POCT mg/dL 8:50 PM SHIP KEEPER POC Specimen (Source) Anatomical Collection Method Collection Time Re ceived Time Location / / Volume Laterality Blood, Capillary BLOOD SPECIMEN / 09/22/2021 8:42 09/11 8:50 Unknown PM SHIP KEEPER PM SHIP KEEPER Lore Son MD LAB - BEAKER POCT Performing Organization Address City/[facility]/ZIP Code Phon [place] [address] Care Lab [address] Lab (1st floor, no room number) (ABNORMAL) Glucose by meter (09/22/2021 2:42 PM SHIP KEEPER) P athologist Signature GLUCOSE BY 220 (H) 70 - 99 09/22/2021 [facility] LABORATORY METER POCT mg/dL 2:50 PM SHIP KEEPER POC Comment: /RN Notified Specimen (Source) Anatomical Collection Method Collection Time Re ceived Time Location / / Volume Laterality Blood, Capillary BLOOD SPECIMEN / 09/22/2021 2:42 0209/2021 2:50 Unknown PM SHIP KEEPER PM SHIP KEEPER Isahaq Gianni Son MD LAB - JOLENE POCT Performing Organization Address City/State/ZIP Code Phon [place] [address] Care Lab [address] Lab (1st floor, no room number) (ABNORMAL) Comprehensive metabolic panel (09/22/2021 10:42 AM SHIP KEEPER) [facility] Method Time Signature Sodium 136 133 - 144 09/22/2021 LABORATORY mmol/L 11:32 AM SHIP KEEPER Potassium 4.3 3.4 - 5.3 09/22/2021 LABORATORY mmol/L 11:32 AM SHIP KEEPER Chloride 107 94 - 109 09/22/2021 LABORATORY mmol/L 11:32 AM SHIP KEEPER Carbon Dioxide 22 20 - 32 09/22/2021 LABORATORY (CO2) mmol/L 11:32 AM SHIP KEEPER Anion Gap 7 3 - 14 09/22/2021 LABORATORY mmol/L 11:32 AM SHIP KEEPER Urea Nitrogen 10 7 - 30 09/22/2021 LABORATORY mg/dL 11:32 AM SHIP KEEPER Creatinine 0.38 (L) 0.52 - 09/22/2021 LABORATORY 1.04 11:32 AM SHIP KEEPER mg/dL Calcium 7.1 (L) 8.5 - 09/22/2021 LABORATORY 10.1 11:32 AM SHIP KEEPER mg/dL Glucose 208 (H) 70 - 99 09/22/2021 LABORATORY mg/dL 11:32 AM SHIP KEEPER Alkaline 90 40 - 150 09/22/2021 LABORATORY Phosphatase U/L 11:32 AM SHIP KEEPER AST 17 0 - 45 09/22/2021 LABORATORY U/L 11:32 AM SHIP KEEPER ALT 16 0 - 50 09/22/2021 LABORATORY U/L 11:32 AM SHIP KEEPER Protein Total 6.1 (L) 6.8 - 8.8 09/22/2021 RH LABORATORY g/dL 11:32 AM SHIP KEEPER Albumin 2.2 (L) 3.4 - 5.0 09/22/2021 LABORATORY g/dL 11:32 AM SHIP KEEPER Bilirubin Total 0.1 (L) 0.2 - 1.3 09/22/2021 RH LABORATORY mg/dL 11:32 AM SHIP KEEPER GFR Estimate >90 >60 09/22/2021 LABORATORY mL/min/1. 11:32 AM SHIP KEEPER 73m2 Comment: Effective July 31, 2021 eGF Rcr in adults is calculated using the 2020 CKD-EPI creatinine equation which includ es age and gender ([employer] et al., [place], DOI: 10.1056/FKQXxj6585200) Specimen Anatomical Collection Method / Collection Time Recei iva Time (Source) Location / Volume Laterality Blood TOPOGRAPHY UNKNOWN Venipuncture / 09/22/2021 10:42 07/2022 / Unknown Unknown AM SHIP KEEPER 11:06 AM SHIP KEEPER Christianne Cotto MD LAB - BLOOD ORDERABLES Performing Organization Address City/State/ZIP Code [place] [phone] Care Lab [address] Lab (1st floor, no room number) (ABNORMAL) Glucose by meter (09/22/2021 9:15 AM SHIP KEEPER) P athologist Signature GLUCOSE BY 174 (H) 70 - 99 09/22/2021 RH LABORATORY METER POCT mg/dL 9:22 AM SHIP KEEPER POC Specimen (Source) Anatomical Collection Method Collection Time Re ceived Time Location / / Volume Laterality Blood, Capillary BLOOD SPECIMEN / 09/22/2021 9:15 02/09/2021 9:22 Unknown AM SHIP KEEPER AM SHIP KEEPER Lore Son MD LAB - BEAKER POCT Performing Organization Address City/[facility]/ZIP Code Phon e Number [place] [address] Care Lab [address] Lab (1st floor, no room number) (ABNORMAL) CBC with platelets (09/22/2021 7:18 AM SHIP KEEPER) Patholo gist Method Time Signature WBC Count 15.6 (H) 4.0 - 11.0 09/22/2021 RH LABORATORY 10e3/uL 2:46 PM SHIP KEEPER RBC Count 3.15 (L) 3.80 - 09/22/2021 RH LABORATORY 5.20 2:46 PM SHIP KEEPER 10e6/uL Hemoglobin 7.4 (L) 11.7 - 09/22/2021 RH LABORATORY 15.7 g/dL 2:46 PM SHIP KEEPER Hematocrit 24.2 (L) 35.0 - 09/22/2021 RH LABORATORY 47.0 % 2:46 PM SHIP KEEPER MCV 77 (L) 78 - 100 09/22/2021 RH LABORATORY fL 2:46 PM SHIP KEEPER MCH 23.5 (L) 26.5 - 09/22/2021 RH LABORATORY 33.0 pg 2:46 PM SHIP KEEPER MCHC 30.6 (L) 31.5 - 09/22/2021 RH LABORATORY 36.5 g/dL 2:46 PM SHIP KEEPER RDW 15.3 (H) 10.0 - 09/22/2021 RH LABORATORY 15.0 % 2:46 PM SHIP KEEPER Platelet Count 280 150 - 450 09/22/2021 RH LABORATORY 10e3/uL 2:46 PM SHIP KEEPER Specimen Anatomical Collection Method Collection Time Receive d Time (Source) Location / / Volume Laterality Blood STRUCTURE OF RIGHT Capillary / 09/22/2021 7:18 AM 07/2022 7:39 HAND / Unknown Unknown SHIP KEEPER AM SHIP KEEPER Christianne Cotto MD LAB - BLOOD ORDERABLES Performing Organization Address City/[facility]/[place] [address] Care Lab [address] Lab (1st floor, no room number) (ABNORMAL) Hemoglobin (09/22/2021 7:18 AM SHIP KEEPER) athologist Signature Hemoglobin 7.4 (L) 11.7 - 15.7 09/22/2021 LABORATORY g/dL 7:51 AM SHIP KEEPER Specimen Anatomical Collection Method Collection Time Receive d Time (Source) Location / / Volume Laterality Blood STRUCTURE OF RIGHT Capillary / 09/22/2021 7:18 AM 07/2022 7:39 HAND / Unknown Unknown SHIP KEEPER AM SHIP KEEPER Lore Son MD LAB - BLOOD ORDERABLES Performing Organization Address City/State/[place] [address] Care Lab [address] Lab (1st floor, no room number) (ABNORMAL) Glucose by meter (09/22/2021 5:54 AM SHIP KEEPER) P athologist Signature GLUCOSE BY 261 (H) 70 - 99 09/22/2021 RH LABORATORY METER POCT mg/dL 6:02 AM SHIP KEEPER POC Specimen (Source) Anatomical Collection Method Collection Time Re ceived Time Location / / Volume Laterality Blood, Capillary BLOOD SPECIMEN / 09/22/2021 5:54 09/11 6:02 Unknown AM SHIP KEEPER AM SHIP KEEPER Lore Son MD LAB - BEAKER POCT Performing Organization Address [facility]/ZIP Code [place] [address] Care Lab [address] Lab (1st floor, no room number) (ABNORMAL) Glucose by meter (09/22/2021 1:08 AM SHIP KEEPER) P athologist Signature GLUCOSE BY 229 (H) 09/22/2021 RH LABORATORY METER POCT mg/dL 1:16 AM SHIP KEEPER POC Comment: /ELVIS Notified Specimen (Source) Anatomical Collection Method Collection Time Re ceived Time Location / / Volume Laterality Blood, Capillary BLOOD SPECIMEN / 09/22/2021 1:08 09/11 1:16 Unknown AM SHIP KEEPER AM SHIP KEEPER Lore Son MD LAB - BENAT POCT Performing Organization Address [facility]/[place] [address] Care Lab [address] Lab (1st floor, no room number) (ABNORMAL) Glucose by meter (09/21/2021 9:34 PM SHIP KEEPER) P athologist Signature GLUCOSE BY 228 (H) 70 - 99 09/21/2021 RH LABORATORY METER POCT mg/dL 9:41 PM SHIP KEEPER POC Comment: /RN Notified Specimen (Source) Anatomical Collection Method Collection Time Re ceived Time Location / / Volume Laterality Blood, Capillary BLOOD SPECIMEN / 09/21/2021 9:34 09/11 9:41 Unknown PM SHIP KEEPER PM SHIP KEEPER Lore CHENG - BEAKER POCT Performing Organization Address City/[facility]/ZIP Code [place] [address] Care Lab [address] [facility] Lab (1st floor, no room number) CT Head w/o Contrast (09/21/2021 6:33 PM SHIP KEEPER) Anatomical Region Laterality Modality Head, SUBRAD CT NEURO, SUBRAD CT NEURO, UMP CT NEURO, Computed Tomography RAD CT Specimen (Source) Anatomical Location Collection Method / Collectio n Time Received Time / Laterality Volume Impressions 09/22/2021 4:33 PM SHIP KEEPER IMPRESSION: 1. No CT findings of acute intracranial process. 2. Mild generalized brain parenchymal vo lume loss. 3. Suggestion of minimal patchy nonspeci fic hypodensity in the cerebral white matter, as described. As clinically warranted, follow-up MRI c ould be considered for further evaluation, particularly given the patie nt's history of recent seizure-like activity. DEXTER LOWE MD SYSTEM ID: ??[id number] Narrative 09/22/2021 4:[address] SCAN OF THE HEAD WITHOUT CONTRAST ?? 09/21/2021 6:33 PM HISTORY: Mental status change, unknown c ause TECHNIQUE: ??Axial images of the head an d coronal reformations without IV contrast material. Radiation dose for this scan was reduced using automated exposure control, adjustment o f the mA and/or kV according to patient size, or iterative reconstruc tion technique. COMPARISON: None. FINDINGS: There is no evidence of intrac ranial hemorrhage, mass, acute infarct or anomaly. The ventricles are n ormal in size and configuration. There is mild generalized brain parenchymal volume loss without a lobar predilection, slightly m ore pronounced than would typically be seen in a patient of this a ge. There is suggestion of very subtle minimal patchy nonspecific h ypodensity in the cerebral white matter. This is nonspecific. This could possibly represent sequela of early minimal chronic small v essel ischemic changes, which would be greater than typically seen for age. Other possibilities such as chronic gliosis of unspecified cause or sequela of demyelinating disease cannot be completely excluded. O therwise unremarkable appearance of the brain and extra axial spaces. No extra axial fluid collection or mass effect/herniation. The visualized portions of the sinuses a nd mastoids appear normal. The bony calvarium and bones of the skull ba se appear intact. Procedure Note Dexter Lowe MD - 09/22/2021Formattin g of this note might be different from the original. CT SCAN OF THE HEAD WITHOUT CONTRAST 09/11 6:33 PM HISTORY: Mental status change, unknown c ause TECHNIQUE: Axial images of the head and coronal reformations without IV contrast material. Radiation dose for this scan was reduced using automated exposure control, adjustment o f the mA and/or kV according to patient size, or iterative reconstruc tion technique. COMPARISON: None. FINDINGS: There is no evidence of intrac ranial hemorrhage, mass, acute infarct or anomaly. The ventricles are n ormal in size and configuration. There is mild generalized brain parenchymal volume loss without a lobar predilection, slightly m ore pronounced than would typically be seen in a patient of this a ge. There is suggestion of very subtle minimal patchy nonspecific h ypodensity in the cerebral white matter. This is nonspecific. This could possibly represent sequela of early minimal chronic small v essel ischemic changes, which would be greater than typically seen for age. Other possibilities such as chronic gliosis of unspecified cause or sequela of demyelinating disease cannot be completely excluded. O therwise unremarkable appearance of the brain and extra axial spaces. No extra axial fluid collection or mass effect/herniation. The visualized portions of the sinuses a nd mastoids appear normal. The bony calvarium and bones of the skull ba se appear intact. IMPRESSION: 1. No CT findings of acute intracranial process. 2. Mild generalized brain parenchymal vo lume loss. 3. Suggestion of minimal patchy nonspeci fic hypodensity in the cerebral white matter, as described. As clinically warranted, follow-up MRI c ould be considered for further evaluation, particularly given the patie nt's history of recent seizure-like activity. DEXTER LOWE MD SYSTEM ID: [id number] Mikeselene Gianni Son MD IMG CT ORDERABLES (ABNORMAL) Glucose by meter (09/21/2021 5:19 PM SHIP KEEPER) P athologist Signature GLUCOSE BY 239 (H) 70 - 99 09/21/2021 RH LABORATORY METER POCT mg/dL 5:28 PM SHIP KEEPER POC Comment: Dr/RN Notified Specimen (Source) Anatomical Collection Method Collection Time Re ceived Time Location / / Volume Laterality Blood, Capillary BLOOD SPECIMEN / 09/21/2021 5:19 09/11 5:28 Unknown PM SHIP KEEPER PM SHIP KEEPER Lore [facility] - [facility] Performing Organization Address City/State/ZIP Code Ph[place] [address] Care Lab [address] Lab (1st floor, no room number) Placenta Path Order and Indications (PLACENTA) (09/21/2021 3:35 PM SHIP KEEPER) Component Value Ref Test Analysis Performed At [facility] gist Range Method Time Signature Case Report Surgical Pathology Report ? Case: [id number] ? 09/25/2021 Authorizing Provider: ??Dinah merrill, Lore Archer, Collected: ? 09/21/2021 03:35 PM ? 2:34 PM LABORATOR Y ? MD ? SHIP KEEPER Ordering Location: ? [facility] ?? Received: ?09/21/2021 04:27 PM ? [facility] ? Pathologist: ? Serg Brady, ? MD ? Specimen: ?Placenta, Thi rd Trimester, Placenta ? Final Placenta: 09/25/2021 SH Electroni osiel Diagnosis - Membranes without diagnostic histologic abnormality. 2:34 PM LABORATORY signed by - Umbilical cord without diagnostic histologic abnormality. SHIP KEEPER Serg Brady - Placenta disc weight withi n normal limits (between tenth percentile and ninetieth percentile) for 34 weeks gestational age. MD Erasmo on 09/25/2021 at 2:34 PM Clinical [id number] 09/25/2021 Information 2:34 PM LABORATORY SHIP KEEPER Jf A(A). Placenta, Third Trimester, Placenta: 09/25/2021 RH Description The specimen is received in formalin, labeled with the patient's name, medical record number and other identifying information designated placenta. It consists of 441 g trimmed placental disc (19.6 x 2:34 PM LABORATORY 17.3 x 1.8 cm) with attached eccentrically located umbilical cord measuring 20.0 cm in length by 1.3 cm in diameter. The umbilical cord is inserted 4.1 cm from the nearest placental margin and has 3 ves SHIP KEEPER sels on cross-section. The f etal membranes are pink-purple and semitransparent. The maternal surface cotyledons are uniform and intact. Upon serial sectioning the placenta parenchyma is red-purple and s pongy throughout. Pizza Baker sections are submitted in 3 cassettes. Cassette 1: Umbilical cord and membranes Cassette 2-3: Placenta parenchyma (DE Torres [facility]) Microscopic A microscopic 09/25/2021 Description examination is 2:34 PM LABORATORY performed. SHIP KEEPER Performing The technical 09/25/2021 RH Labs component of this 2:34 PM LABORATORY testing was SHIP KEEPER completed at [facility] Laboratory Case Images 09/25/2021 2:34 PM LABORATORY SHIP KEEPER Specimen Anatomical Collection Method Collection Time Receive d Time (Source) Location / / Volume Laterality Placenta PLACENTAL Non-blood 09/21/2021 3:35 PM 2 4:27 STRUCTURE / Collection / SHIP KEEPER PM SHIP KEEPER Unknown Unknown Lore Son MD LAB - BEAKER AP Performing Organization Address City/[facility]/ZIP Code Phon [place] [phone] Acute Care Lab [address] 1st floor, Room [address] [place] [address], Care Lab [facility] [address] Lab (1st floor, no room number) Magnesium (09/21/2021 2:07 PM SHIP KEEPER) athologist Signature Magnesium 1.9 1.6 - 2.3 09/21/2021 RH LABORATORY mg/dL 5:42 PM SHIP KEEPER Specimen Anatomical Collection Method / Collection Time Recei iva Time (Source) Location / Volume Laterality Blood STRUCTURE OF RIGHT Venipuncture / 09/21/2021 2:07 /08/2021 2:13 UPPER LIMB / Unknown PM SHIP KEEPER PM SHIP KEEPER Unknown Lore Son MD LAB - BLOOD ORDERABLES Performing Organization Address City/State/ZIP Code [place] [address] Care Lab [address] Lab (1st floor, no room number) (ABNORMAL) Creatinine (09/21/2021 2:05 PM SHIP KEEPER) athologist Signature Creatinine 0.36 (L) 0.52 - 09/21/2021 RH LABORATORY 1.04 mg/dL 2:40 PM SHIP KEEPER GFR Estimate >90 >60 09/21/2021 LABORATORY mL/min/1.7 2:40 PM SHIP KEEPER 3m2 Comment: Effective July 31, 2021 eGF Rcr in adults is calculated using the 2020 CKD-EPI creatinine equation which includ es age and gender (Angelika et al., [place], DOI: 10.1056/IWFNzw7502215) Specimen Anatomical Collection Method / Collection Time Recei iva Time (Source) Location / Volume Laterality Blood STRUCTURE OF RIGHT Venipuncture / 09/21/2021 2:05 09/11 2:13 UPPER LIMB / Unknown PM SHIP KEEPER PM SHIP KEEPER Unknown Lore Son MD LAB - BLOOD ORDERABLES Performing Organization Address City/State/[place] [address] Care Lab [address] Lab (1st floor, no room number) ALT (09/21/2021 2:05 PM SHIP KEEPER) P athologist Signature ALT 14 0 - 50 U/L 09/21/2021 2:40 RH LABORATORY PM SHIP KEEPER Specimen Anatomical Collection Method / Collection Time Recei iva Time (Source) Location / Volume Laterality Blood STRUCTURE OF RIGHT Venipuncture / 09/21/2021 2:05 09/11 2:13 UPPER LIMB / Unknown PM SHIP KEEPER PM SHIP KEEPER Unknown Lore Son MD LAB - BLOOD ORDERABLES Performing Organization Address City/State/[place] [address] Care Lab [address] Lab (1st floor, no room number) AST (09/21/2021 2:05 PM SHIP KEEPER) P athologist Signature AST 13 0 - 45 U/L 09/21/2021 2:40 RH LABORATORY PM SHIP KEEPER Specimen Anatomical Collection Method / Collection Time Recei iva Time (Source) Location / Volume Laterality Blood STRUCTURE OF RIGHT Venipuncture / 09/21/2021 2:05 09/11 2:13 UPPER LIMB / Unknown PM SHIP KEEPER PM SHIP KEEPER Unknown Lore Son MD LAB - BLOOD ORDERABLES Performing Organization Address City/State/ZIP Code [place] [phone] Care Lab [address] Lab (1st floor, no room number) (ABNORMAL) CBC with platelets (09/21/2021 2:05 PM SHIP KEEPER) [facility] gist Method Time Signature WBC Count 15.1 (H) 4.0 - 11.0 09/21/2021 RH LABORATORY 10e3/uL 2:16 PM SHIP KEEPER RBC Count 4.35 3.80 - 09/21/2021 RH LABORATORY 5.20 2:16 PM SHIP KEEPER 10e6/uL Hemoglobin 10.1 (L) 11.7 - 09/21/2021 RH LABORATORY 15.7 g/dL 2:16 PM SHIP KEEPER Hematocrit 33.8 (L) 35.0 - 09/21/2021 RH LABORATORY 47.0 % 2:16 PM SHIP KEEPER MCV 78 78 - 100 09/21/2021 RH LABORATORY fL 2:16 PM SHIP KEEPER MCH 23.2 (L) 26.5 - 09/21/2021 RH LABORATORY 33.0 pg 2:16 PM SHIP KEEPER MCHC 29.9 (L) 31.5 - 09/21/2021 RH LABORATORY 36.5 g/dL 2:16 PM SHIP KEEPER RDW 15.4 (H) 10.0 - 09/21/2021 RH LABORATORY 15.0 % 2:16 PM SHIP KEEPER Platelet Count 316 150 - 450 09/21/2021 RH LABORATORY 10e3/uL 2:16 PM SHIP KEEPER Specimen Anatomical Collection Method / Collection Time Recei iva Time (Source) Location / Volume Laterality Blood STRUCTURE OF RIGHT Venipuncture / 09/21/2021 2:05 /08/2021 2:13 UPPER LIMB / Unknown PM SHIP KEEPER PM SHIP KEEPER Unknown Lore Son MD LAB - BLOOD ORDERABLES Performing Organization Address City/State/ZIP Code [place] [phone] Care Lab [address] Lab (1st floor, no room number) EKG 12-lead, tracing only (09/21/2021 1:45 PM SHIP KEEPER) Component Value Ref Range Test Analysis Performed Pathologis t Method Time At Signature Systolic Blood mmHg RADIOLOGY Pressure RESULTS Diastolic Blood mmHg RADIOLOGY Pressure RESULTS Ventricular Rate 111 BPM RADIOLOGY RESULTS Atrial Rate 111 BPM RADIOLOGY RESULTS WV Interval 152 ms RADIOLOGY RESULTS QRS Duration 66 ms RADIOLOGY RESULTS QT 312 ms RADIOLOGY RESULTS QTc 424 ms RADIOLOGY RESULTS P [place] 64 degrees RADIOLOGY RESULTS R AXIS 52 degrees RADIOLOGY RESULTS T [place] 46 degrees RADIOLOGY RESULTS Interpretation Sinus tachycardia RADIOLO GY ECG Otherwise normal ECG RESULTS Confirmed by MD AIME, CONCEPCION NICOLE ([id number]), editor newspaper TULIO BETTS ([id number]) on 10/04/2021 7:58:14 AM Specimen Anatomical Collection Method Collection Time Receive d Time (Source) Location / / Volume Laterality 09/21/2021 1:45 PM 7:58 SHIP KEEPER AM SHIP KEEPER Nahid Freedman DO ECG ORDERABLES Performing Organization Address City/State/ZIP Code Phon e Number RADIOLOGY RESULTS (ABNORMAL) Glucose by meter (09/21/2021 1:36 PM SHIP KEEPER) P athologist Signature GLUCOSE BY 174 (H) 70 - 99 09/21/2021 RH LABORATORY METER POCT mg/dL 1:42 PM SHIP KEEPER POC Specimen (Source) Anatomical Collection Method Collection Time Re ceived Time Location / / Volume Laterality Blood, Capillary BLOOD SPECIMEN / 09/21/2021 1:36 09/11 1:42 Unknown PM SHIP KEEPER PM SHIP KEEPER Lore Son MD LAB - BEAKER POCT Performing Organization Address City/State/ZIP Code Phon e Number [place] [address] Care Lab [address] Lab (1st floor, no room number) (ABNORMAL) Glucose by meter (09/21/2021 1:00 PM SHIP KEEPER) P athologist Signature GLUCOSE BY 176 (H) 70 - 99 09/21/2021 RH LABORATORY METER POCT mg/dL 1:07 PM SHIP KEEPER POC Specimen (Source) Anatomical Collection Method Collection Time Re ceived Time Location / / Volume Laterality Blood, Capillary BLOOD SPECIMEN / 09/21/2021 1:00 09/11 1:07 Unknown PM SHIP KEEPER PM SHIP KEEPER Lore Son MD LAB - BEAKER POCT Performing Organization Address City/State/ZIP Code Phon [place] [address] Care Lab [address] Lab (1st floor, no room number) (ABNORMAL) Glucose by meter (09/21/2021 11:47 AM SHIP KEEPER) P athologist Signature GLUCOSE BY 163 (H) 70 - 99 09/21/2021 RH LABORATORY METER POCT mg/dL 11:55 AM SHIP KEEPER POC Specimen (Source) Anatomical Collection Method Collection Time Re ceived Time Location / / Volume Laterality Blood, Capillary BLOOD SPECIMEN / 09/21/2021 11:47 06/2022 Unknown AM SHIP KEEPER 11:55 AM SHIP KEEPER Lore Son MD LAB - BEAKER POCT Performing Organization Address City/[facility]/ZIP Code Phon [place] [address] Care Lab [address] Lab (1st floor, no room number) (ABNORMAL) Glucose by meter (09/21/2021 10:30 AM SHIP KEEPER) P athologist Signature GLUCOSE BY 163 (H) 70 - 99 09/21/2021 RH LABORATORY METER POCT mg/dL 10:37 AM SHIP KEEPER POC Specimen (Source) Anatomical Collection Method Collection Time Re ceived Time Location / / Volume Laterality Blood, Capillary BLOOD SPECIMEN / 09/21/2021 10:30 06/2022 Unknown AM SHIP KEEPER 10:37 AM SHIP KEEPER Lore Son MD LAB - BEAKER POCT Performing Organization Address City/State/ZIP Code [place] [address] Care Lab [address] Lab (1st floor, no room number) (ABNORMAL) Comprehensive metabolic panel (09/21/2021 10:27 AM SHIP KEEPER) [facility] Method Time Signature Sodium 136 133 - 144 09/21/2021 LABORATORY mmol/L 11:06 AM SHIP KEEPER Potassium 3.8 3.4 - 5.3 09/21/2021 LABORATORY mmol/L 11:06 AM SHIP KEEPER Chloride 108 94 - 109 09/21/2021 LABORATORY mmol/L 11:06 AM SHIP KEEPER Carbon Dioxide 19 (L) 20 - 32 09/21/2021 LABORATORY (CO2) mmol/L 11:06 AM SHIP KEEPER Anion Gap 9 3 - 14 09/21/2021 LABORATORY mmol/L 11:06 AM SHIP KEEPER Urea Nitrogen 11 7 - 30 09/21/2021 LABORATORY mg/dL 11:06 AM SHIP KEEPER Creatinine 0.38 (L) 0.52 - 09/21/2021 LABORATORY 1.04 11:06 AM SHIP KEEPER mg/dL Calcium 8.7 8.5 - 09/21/2021 LABORATORY 10.1 11:06 AM SHIP KEEPER mg/dL Glucose 189 (H) 70 - 99 09/21/2021 LABORATORY mg/dL 11:06 AM SHIP KEEPER Alkaline 102 40 - 150 09/21/2021 LABORATORY Phosphatase U/L 11:06 AM SHIP KEEPER AST 12 0 - 45 09/21/2021 LABORATORY U/L 11:06 AM SHIP KEEPER ALT 17 0 - 50 09/21/2021 LABORATORY U/L 11:06 AM SHIP KEEPER Protein Total 6.6 (L) 6.8 - 8.8 09/21/2021 LABORATORY g/dL 11:06 AM SHIP KEEPER Albumin 2.2 (L) 3.4 - 5.0 09/21/2021 LABORATORY g/dL 11:06 AM SHIP KEEPER Bilirubin Total 0.3 0.2 - 1.3 09/21/2021 LABORATORY mg/dL 11:06 AM SHIP KEEPER GFR Estimate >90 >60 09/21/2021 LABORATORY mL/min/1. 11:06 AM SHIP KEEPER 73m2 Comment: Effective July 31, 2021 eGF Rcr in adults is calculated using the 2020 CKD-EPI creatinine equation which includ es age and gender (Angelika et al., NEJM, DOI: 10.1056/UMUOzo9359413) Specimen Anatomical Collection Method / Collection Time Recei iva Time (Source) Location / Volume Laterality Blood STRUCTURE OF RIGHT Venipuncture / 09/21/2021 10:27 06/2022 UPPER LIMB / Unknown AM SHIP KEEPER 10:34 AM SHIP KEEPER Unknown Lore Son MD LAB - BLOOD ORDERABLES Performing Organization Address City/State/ZIP Code [place] [address] Care Lab [address] Lab (1st floor, no room number) (ABNORMAL) CBC with platelets (09/21/2021 10:27 AM SHIP KEEPER) [facility] gist Method Time Signature WBC Count 12.1 (H) 4.0 - 11.0 09/21/2021 RH LABORATORY 10e3/uL 10:39 AM SHIP KEEPER RBC Count 4.18 3.80 - 09/21/2021 RH LABORATORY 5.20 10:39 AM SHIP KEEPER 10e6/uL Hemoglobin 9.8 (L) 11.7 - 09/21/2021 [facility] LABORATORY 15.7 g/dL 10:39 AM SHIP KEEPER Hematocrit 32.5 (L) 35.0 - 09/21/2021 [facility] LABORATORY 47.0 % 10:39 AM SHIP KEEPER MCV 78 78 - 100 09/21/2021 [facility] LABORATORY fL 10:39 AM SHIP KEEPER MCH 23.4 (L) 26.5 - 09/21/2021 [facility] LABORATORY 33.0 pg 10:39 AM SHIP KEEPER MCHC 30.2 (L) 31.5 - 09/21/2021 RH LABORATORY 36.5 g/dL 10:39 AM SHIP KEEPER RDW 15.3 (H) 10.0 - 09/21/2021 RH LABORATORY 15.0 % 10:39 AM SHIP KEEPER Platelet Count 279 150 - 450 09/21/2021 RH LABORATORY 10e3/uL 10:39 AM SHIP KEEPER Specimen Anatomical Collection Method / Collection Time Recei iva Time (Source) Location / Volume Laterality Blood STRUCTURE OF RIGHT Venipuncture / 09/21/2021 10:27 06/2022 UPPER LIMB / Unknown AM SHIP KEEPER 10:34 AM SHIP KEEPER Unknown Lore Son MD LAB - BLOOD ORDERABLES Performing Organization Address City/State/ZIP Code [place] [address] Care Lab [address] Lab (1st floor, no room number) US Lower Extremity Venous Duplex Bilateral (09/21/2021 9:24 AM SHIP KEEPER) Anatomical Region Laterality Modality Vascular, Thigh, Leg Ultrasound Specimen (Source) Anatomical Location Collection Method / Collectio n Time Received Time / Laterality Volume Impressions 09/21/2021 9:50 AM SHIP KEEPER IMPRESSION: No deep vein thrombosis in either lower extremity. ?? HAILEY KAM DO Narrative 09/21/2021 9:50 AM SHIP KEEPER VENOUS ULTRASOUND BILATERAL LEG(S) ??09/21/2021 9:24 AM HISTORY: lower extremity pain in the set ting of ; rule out deep vein thrombosis COMPARISON: None. FINDINGS: Examination of the deep veins with graded compression and color flow Doppler with spectral wave fo rm analysis was performed. Images show no evidence of thrombus in t he bilateral common femoral vein, femoral vein, popliteal vein or ca lf veins. Procedure Note Hailey Kam DO - 2021 VENOUS ULTRASOUND BILATERAL LEG(S) 2021 9:24 AM HISTORY: lower extremity pain in the set ting of ; rule out deep vein thrombosis COMPARISON: None. FINDINGS: Examination of the deep veins with graded compression and color flow Doppler with spectral wave fo rm analysis was performed. Images show no evidence of thrombus in t he bilateral common femoral vein, femoral vein, popliteal vein or ca lf veins. IMPRESSION: No deep vein thrombosis in e ither lower extremity. HAILEY KAM DO Lore Son MD IMG US ORDERABLES (ABNORMAL) Glucose by meter (09/21/2021 7:30 AM SHIP KEEPER) P athologist Signature GLUCOSE BY 131 (H) 70 - 99 09/21/2021 [facility] LABORATORY METER POCT mg/dL 7:37 AM SHIP KEEPER POC Specimen (Source) Anatomical Collection Method Collection Time Re ceived Time Location / / Volume Laterality Blood, Capillary BLOOD SPECIMEN / 09/21/2021 7:30 09/11 7:37 Unknown AM SHIP KEEPER AM SHIP KEEPER Lore CHENG - JOLENE POCT Performing Organization Address City/State/ZIP Code Phon [place] [address] Care Lab [address] [facility] Lab (1st floor, no room number) Adult Type and Screen (09/21/2021 6:32 AM SHIP KEEPER) [facility] Method Time Signature ABO/RH(D) O POS 09/21/2021 RH BLOOD 6:30 AM SHIP KEEPER BANK Antibody Negative Negative 09/21/2021 RH BLOOD Screen 6:30 AM SHIP KEEPER BANK SPECIMEN [id number] 09/21/2021 RH BLOOD EXPIRATION 6:30 AM SHIP KEEPER BANK DATE Specimen Anatomical Collection Method / Collection Time Recei iva Time (Source) Location / Volume Laterality Blood STRUCTURE OF LEFT Venipuncture / 09/21/2021 6:32 09/21 7:02 UPPER LIMB / Unknown AM SHIP KEEPER AM SHIP KEEPER Unknown Jian Dunn MD LAB - BLOOD BANK TEST ORDER Performing Organization Address City/State/ZIP Code Phon e Number RH BLOOD BANK [address] [place] [address] (ABNORMAL) Comprehensive metabolic panel (09/21/2021 6:31 AM SHIP KEEPER) [facility] Method Time Signature Sodium 135 133 - 144 09/21/2021 LABORATORY mmol/L 7:32 AM SHIP KEEPER Potassium 4.1 3.4 - 5.3 09/21/2021 LABORATORY mmol/L 7:32 AM SHIP KEEPER Chloride 109 94 - 109 09/21/2021 LABORATORY mmol/L 7:32 AM SHIP KEEPER Carbon Dioxide 18 (L) 20 - 32 09/21/2021 LABORATORY (CO2) mmol/L 7:32 AM SHIP KEEPER Anion Gap 8 3 - 14 09/21/2021 LABORATORY mmol/L 7:32 AM SHIP KEEPER Urea Nitrogen 9 7 - 30 09/21/2021 LABORATORY mg/dL 7:32 AM SHIP KEEPER Creatinine 0.35 (L) 0.52 - 09/21/2021 LABORATORY 1.04 7:32 AM SHIP KEEPER mg/dL Calcium 8.7 8.5 - 09/21/2021 LABORATORY 10.1 7:32 AM SHIP KEEPER mg/dL Glucose 143 (H) 70 - 99 09/21/2021 LABORATORY mg/dL 7:32 AM SHIP KEEPER Alkaline 104 40 - 150 09/21/2021 LABORATORY Phosphatase U/L 7:32 AM SHIP KEEPER AST 10 0 - 45 09/21/2021 LABORATORY U/L 7:32 AM SHIP KEEPER ALT 15 0 - 50 09/21/2021 RH LABORATORY U/L 7:32 AM SHIP KEEPER Protein Total 6.8 6.8 - 8.8 09/21/2021 LABORATORY g/dL 7:32 AM SHIP KEEPER Albumin 2.4 (L) 3.4 - 5.0 09/21/2021 RH LABORATORY g/dL 7:32 AM SHIP KEEPER Bilirubin Total 0.2 0.2 - 1.3 09/21/2021 LABORATORY mg/dL 7:32 AM SHIP KEEPER GFR Estimate >90 >60 09/21/2021 LABORATORY mL/min/1. 7:32 AM SHIP KEEPER 73m2 Comment: Effective July 31, 2021 eGF Rcr in adults is calculated using the 2020 CKD-EPI creatinine equation which includ es age and gender (Angelika et al., [place], DOI: 10.1056/DTEGom7264427) Specimen Anatomical Collection Method / Collection Time Recei iva Time (Source) Location / Volume Laterality Blood STRUCTURE OF LEFT Venipuncture / 09/21/2021 6:31 09/21 7:02 UPPER LIMB / Unknown AM SHIP KEEPER AM SHIP KEEPER Unknown Jina Dunn MD LAB - BLOOD ORDERABLES Performing Organization Address City/State/ZIP Code [place] [phone] Care Lab [address] Lab (1st floor, no room number) (ABNORMAL) CBC with platelets (09/21/2021 6:31 AM SHIP KEEPER) [facility] gist Method Time Signature WBC Count 13.8 (H) 4.0 - 11.0 09/21/2021 RH LABORATORY 10e3/uL 7:15 AM SHIP KEEPER RBC Count 4.41 3.80 - 09/21/2021 RH LABORATORY 5.20 7:15 AM SHIP KEEPER 10e6/uL Hemoglobin 10.1 (L) 11.7 - 09/21/2021 RH LABORATORY 15.7 g/dL 7:15 AM SHIP KEEPER Hematocrit 34.4 (L) 35.0 - 09/21/2021 RH LABORATORY 47.0 % 7:15 AM SHIP KEEPER MCV 78 78 - 100 09/21/2021 RH LABORATORY fL 7:15 AM SHIP KEEPER MCH 22.9 (L) 26.5 - 09/21/2021 RH LABORATORY 33.0 pg 7:15 AM SHIP KEEPER MCHC 29.4 (L) 31.5 - 09/21/2021 RH LABORATORY 36.5 g/dL 7:15 AM SHIP KEEPER RDW 15.2 (H) 10.0 - 09/21/2021 RH LABORATORY 15.0 % 7:15 AM SHIP KEEPER Platelet Count 299 150 - 450 09/21/2021 RH LABORATORY 10e3/uL 7:15 AM SHIP KEEPER Specimen Anatomical Collection Method / Collection Time Recei iva Time (Source) Location / Volume Laterality Blood STRUCTURE OF LEFT Venipuncture / 09/21/2021 6:31 09/21 7:14 UPPER LIMB / Unknown AM SHIP KEEPER AM SHIP KEEPER Unknown Jian Dunn MD LAB - BLOOD ORDERABLES Performing Organization Address City/[facility]/ZIP Code [place] [address] Care Lab [address] Lab (1st floor, no room number) (ABNORMAL) Glucose by meter (09/21/2021 2:07 AM SHIP KEEPER) P athologist Signature GLUCOSE BY 173 (H) 70 - 99 09/21/2021 [facility] LABORATORY METER POCT mg/dL 2:13 AM SHIP KEEPER POC Specimen (Source) Anatomical Collection Method Collection Time Re ceived Time Location / / Volume Laterality Blood, Capillary BLOOD SPECIMEN / 09/21/2021 2:07 02/08/2021 2:13 Unknown AM SHIP KEEPER AM SHIP KEEPER Jian Dunn MD LAB - BEAKER POCT Performing Organization Address City/State/ZIP Code Phon e Number [place] [address] Care Lab [address] Lab (1st floor, no room number) (ABNORMAL) Glucose by meter (09/21/2021 12:09 AM SHIP KEEPER) P athologist Signature GLUCOSE BY 170 (H) 70 - 99 09/21/2021 RH LABORATORY METER POCT mg/dL 12:16 AM SHIP KEEPER POC Specimen (Source) Anatomical Collection Method Collection Time Re ceived Time Location / / Volume Laterality Blood, Capillary BLOOD SPECIMEN / 09/21/2021 12:09 06/2022 Unknown AM SHIP KEEPER 12:16 AM SHIP KEEPER Jian CHENG - BENAT POCT Performing Organization Address City/[facility]/ZIP Code [place] [address] Care Lab [address] Lab (1st floor, no room number) (ABNORMAL) Glucose by meter (09/20/2021 9:31 PM SHIP KEEPER) athologist Signature GLUCOSE BY 169 (H) 70 - 99 09/20/2021 LABORATORY METER POCT mg/dL 9:37 PM SHIP KEEPER POC Specimen (Source) Anatomical Collection Method Collection Time Re ceived Time Location / / Volume Laterality Blood, Capillary BLOOD SPECIMEN / 09/20/2021 9:31 02 9:37 Unknown PM SHIP KEEPER PM SHIP KEEPER Jian FERNÁNDEZ POCT Performing Organization Address City/[facility]/ZIP Code [place] [address] Care Lab [address] Lab (1st floor, no room number) (ABNORMAL) Glucose by meter (09/20/2021 6:59 PM SHIP KEEPER) athologist Signature GLUCOSE BY 175 (H) 70 - 99 09/20/2021 LABORATORY METER POCT mg/dL 7:06 PM SHIP KEEPER POC Specimen (Source) Anatomical Collection Method Collection Time Re ceived Time Location / / Volume Laterality Blood, Capillary BLOOD SPECIMEN / 09/20/2021 6:59 09/11 7:06 Unknown PM SHIP KEEPER PM SHIP KEEPER Jian FERNÁNDEZ POCT Performing Organization Address City/[facility]/ZIP Code [place] [address] Care Lab [address] Lab (1st floor, no room number) (ABNORMAL) Glucose by meter (09/20/2021 5:45 PM SHIP KEEPER) P athologist Signature GLUCOSE BY 157 (H) 70 - 99 09/20/2021 LABORATORY METER POCT mg/dL 5:52 PM SHIP KEEPER POC Specimen (Source) Anatomical Collection Method Collection Time Re ceived Time Location / / Volume Laterality Blood, Capillary BLOOD SPECIMEN / 09/20/2021 5:45 09/11 5:52 Unknown PM SHIP KEEPER PM SHIP KEEPER Jian Dunn MD LAB - [facility] POCT Performing Organization Address City/State/ZIP Code Phon [place] [address] Care Lab [address] Lab (1st floor, no room number) Asymptomatic COVID-19 Virus (Coronavirus) by PCR Nasopharyngeal (09/20/2021 2:42 PM SHIP KEEPER) Analysis Performed At Patho logist Time Signature SARS CoV2 PCR Negative Negative 09/20/2021 LABORATORY 3:14 PM SHIP KEEPER Comment: NEGATIVE: SARS-CoV-2 (COVID-19) RNA not detected, presumed negative. Specimen Anatomical Location / Collection Method Collection Michael e Received Time (Source) Laterality / Volume Swab NASOPHARYNGEAL Non-blood 09/20/2021 2:42 09/20/2021 2:48 STRUCTURE / Unknown Collection / PM SHIP KEEPER PM SHIP KEEPER Unknown Narrative LABORATORY - 09/20/2021 3:14 PM SHIP KEEPER Testing was performed using the amanuel?? SARS-CoV-2 & Influenza A/B Assay on the amanuel?? Delfina?? System. ??This test shoul d be ordered for the detection of SARS-COV-2 in individuals who meet SARS-CoV-2 clini usman and/or epidemiological criteria. Test performance is unknown [...] exposure or clinical presentation sugges ts COVID-19. ??[facility] are certified under the Clinical Laborat ory Improvement Amendments of 1988 (CLIA-88) as qualified to perform moderate and/or high complexity laboratory testing. Jian Dunn MD LAB - MICRO GENERAL ORDERABL ES Performing Organization Address City/State/ZIP Code [place] [address] Care Lab [address] [facility] Lab (1st floor, no room number) Group B strep PCR (09/20/2021 2:42 PM SHIP KEEPER) [facility] Group B Strep Negative Negative 09/21/2021 [facility] ID[facility] PCR 6:10 PM SHIP KEEPER LABORATORY Comment: Presumed negative for Streptoco ccus agalactiae (Group B Streptococcus) or the number of organisms may be below the limit of detection of the assay. Penicillin, amoxicillin, or No 09/21/2021 6 :10 PM SHIP KEEPER [facility] LABORATORY cephalosporin allergy? Specimen Anatomical Location Collection Method Collection Time Received Time (Source) / Laterality / Volume Swab STRUCTURE OF Non-blood 09/20/2021 2:42 09/20/2021 2 :48 RECTOVAGINAL SEPTUM Collection / PM SHIP KEEPER PM SHIP KEEPER / Unknown Unknown Narrative [facility] LABORATORY - 09/21/2021 6:[address] The Cepheid Xpert GBS LB Assay, performe d on the [employer]?? Instrument Systems, is a qualitative in vitro diagnostic test dutch igned to detect Group B Streptococcus (GBS) DNA from enriched vaginal/rectal swab sp ecimens, using fully automated, real-time polymerase chain reaction (PCR) with flu orogenic detection of the amplified DNA. Xpert GBS LB Assay testing is indicated as an aid in determining GBS colonization status in antepartum women. This assay d oes not diagnose or monitor treatment for GBS infections. The [employer] is Techid Xpert GBS LB Ass ay is intended for use in hospital, reference or state laboratory settings. The device is not intended for [id number] use. Jian Dunn MD LAB - MICRO GENERAL ORDERABL ES Performing Organization Address City/State/ZIP Code Phon e Number [facility] LABORATORY [facility] [place] [address] Diag. Lab [address] [facility], [address] [facility] LABORATORY [facility] Infectious [place], [place] [phone] Diseases Diagnostic [id number], [facility] Lab (IDDL) [address] [facility], [address] Maternal BPP Single (09/20/2021 2:01 PM SHIP KEEPER) Anatomical Region Laterality Modality Ultrasound Specimen (Source) Anatomical Collection Method Collection Time Re ceived Time Location / / Volume Laterality 09/20/2021 1:34 PM SHIP KEEPER Impressions 09/20/2021 5:41 PM SHIP KEEPER IMPRESSION 1) Wolfe intrauterine at 3 4w 4d gestational age. 2) The BPP is reassuring. 3) The amniotic fluid volume appeared no rmal. Narrative 09/20/2021 5:41 PM SHIP KEEPER BPP Pat. Name: BEATRIZ APARICIO Study Date: 09/20 1:34pm Pat. NO: [id number] Referring ??: IDALMIS CARIAS Site: [employer] Survey Worker: Kylah Condon RDMS : 1995 Age: 26 INDICATION Poorly controlled Type II Diabetes. Susp ected Preeclampsia METHOD RH ANTEPARTUM inpatient exam. Transabdom inal ultrasound examination. View: Sufficient Wolfe . Number of fetuses: 1 DATING ? Date ?Details ?Gest. age ?PAYTON LMP ?01/21/2021 ?Cycle: regular cycle ?34 w + 4 d ? 10/28/2021 Assigned dating ?Dating performed on 09/17/2021, based on the LMP ?34 w + 4 d ? 10/28/2021 GENERAL EVALUATION Cardiac activity present. FHR 132 bpm. movements visualized. Presentation cephalic. Placenta anterior, no previa > 2 cm . Umbilical cord previously studied. AMNIOTIC FLUID ASSESSMENT Amount of AF: normal MVP 7.5 cm BIOPHYSICAL PROFILE 2: breathing movements 2: Gross body movements 2: tone 2: Amniotic fluid volume 8/8 Biophysical profile score Interpretation: normal RECOMMENDATION Discussed case with Dr. Echeverria. Patient a dmitted with preeclampsia without severe features and history of poorly controlled diabetes mellitus (Type 2).Beta methason e given after confirmation of normal glucose levels. Close monitoring of glucose levels is ongoing with Medical Hospitalists assisting with management. Planning to d louisevery at 37 weeks if remains in control and preeclampsia remains without severe features. Continue surveillance as previously recommended. Procedure Note Natalio Stafford MD - 09/20/2021Format ting of this note might be different from the original. BPP Pat. Name:Tamera APARICIO Date:09/20/19 1:34pm Pat. NO: [id number] :VALERIA CABALLERO Site:[place]ographer:Rachel Saavedra :1995Age:26 INDICATION Poorly controlled Type II Diabetes. Susp ected Preeclampsia METHOD RH ANTEPARTUM inpatient exam. Transabdom inal ultrasound examination. View: Sufficient Wolfe . Number of fetuses: 1 DATING Date Details Gest. age PAYTON LMP 01/21/2021 Cycle: regular cycle 34 w + 4 d 10/28/2021 Assigned dating Dating performed on 09/17, based on the LMP 34 w + 4 d 10/28/2021 GENERAL EVALUATION Cardiac activity present. FHR 132 bpm. movements visualized. Presentation cephalic. Placenta anterior, no previa > 2 cm . Umbilical cord previously studied. AMNIOTIC FLUID ASSESSMENT Amount of AF: normal MVP 7.5 cm BIOPHYSICAL PROFILE 2: breathing movements 2: Gross body movements 2: tone 2: Amniotic fluid volume 8/8 Biophysical profile score Interpretation: normal RECOMMENDATION Discussed case with Dr. Echeverria. Patient a dmitted with preeclampsia without severe features and history of poorly controlled diabetes mellitus (Type 2).Beta methason e given after confirmation of normal glucose levels. Close monitoring of glucose levels is ongoing with Medical Hospitalists assisting with management. Planning to d elivery at 37 weeks if remains in control and preeclampsia remains without severe features. Continue surveillance as previously recommended. IMPRESSION 1) Wolfe intrauterine at 3 4w 4d gestational age. 2) The BPP is reassuring. 3) The amniotic fluid volume appeared no rmal. Jian Dunn [facility] ORDER[facility] (ABNORMAL) Wet preparation (09/20/2021 11:39 AM SHIP KEEPER) Analysis Performed At Patho logist Time Signature Trichomonas Absent Absent LESLIE 09/20/2021 LABORATORY 12:08 PM SHIP KEEPER Yeast Absent Absent LESLIE 09/20/2021 LABORATORY 12:08 PM SHIP KEEPER Clue Cells Absent Absent LESLIE 09/20/2021 LABORATORY 12:08 PM SHIP KEEPER WBCs/high power 1+ (A) None LESLIE 09/20/2021 LABORATORY field 12:08 PM SHIP KEEPER Specimen Anatomical Collection Method Collection Time Receive d Time (Source) Location / / Volume Laterality Swab VAGINAL STRUCTURE Non-blood 09/20/2021 11:39 2021 / Unknown Collection / AM SHIP KEEPER 11:42 AM SHIP KEEPER Unknown Jian Dunn MD LAB - MICRO GENERAL ORDERABL ES Performing Organization Address City/State/ZIP Code [place] [address] [facility] Lab [address] Lab (1st floor, no room number) (ABNORMAL) Protein random urine (09/20/2021 11:36 AM SHIP KEEPER) P athologist Signature Total Protein 0.79 g/L 09/20/2021 LABORATORY Random Urine 12:09 PM SHIP KEEPER g/L Comment: The reference range has not bee n established for total protein in random urine samples. ??The result should be in tegrated into the clinical context for interpretation. Total Protein Urine 0.51 (H) 0.00 - 0.20 g/g 09/20/2021 12: 09 PM LABORATORY g/gr Creatinine Cr SHIP KEEPER Creatinine Urine mg/dL 156 mg/dL 09/20/2021 12:09 PM LABORATORY SHIP KEEPER Specimen Anatomical Collection Method Collection Time Receive d Time (Source) Location / / Volume Laterality Urine MID-STREAM URINE Non-blood 09/20/2021 11:36 022 SPECIMEN / Unknown Collection / AM SHIP KEEPER 11:42 AM SHIP KEEPER Unknown Jian Dunn MD LAB - URINE ORDERABLES Performing Organization Address City/[facility]/ZIP [facility] [place] [phone] Care Lab [address] Lab (1st floor, no room number) Uric acid (09/20/2021 11:36 AM SHIP KEEPER) P athologist Signature Uric Acid 3.4 2.6 - 6.0 09/20/2021 RH LABORATORY mg/dL 11:59 AM SHIP KEEPER Specimen Anatomical Collection Method / Collection Time Recei iva Time (Source) Location / Volume Laterality Blood STRUCTURE OF RIGHT Venipuncture / 09/20/2021 11:36 05/2022 UPPER LIMB / Unknown AM SHIP KEEPER 11:39 AM SHIP KEEPER Unknown Jian Dunn MD LAB - BLOOD ORDERABLES Performing Organization Address City/[facility]/ZIP [facility] [place] [address] Care Lab [address] Lab (1st floor, no room number) (ABNORMAL) Comprehensive metabolic panel (09/20/2021 11:36 AM SHIP KEEPER) Patholo gist Method Time Signature Sodium 138 133 - 144 09/20/2021 LABORATORY mmol/L 11:59 AM SHIP KEEPER Potassium 4.0 3.4 - 5.3 09/20/2021 RH LABORATORY mmol/L 11:59 AM SHIP KEEPER Chloride 111 (H) 94 - 109 09/20/2021 RH LABORATORY mmol/L 11:59 AM SHIP KEEPER Carbon Dioxide 22 20 - 32 09/20/2021 LABORATORY (CO2) mmol/L 11:59 AM SHIP KEEPER Anion Gap 5 3 - 14 09/20/2021 RH LABORATORY mmol/L 11:59 AM SHIP KEEPER Urea Nitrogen 10 7 - 30 09/20/2021 RH LABORATORY mg/dL 11:59 AM SHIP KEEPER Creatinine 0.40 (L) 0.52 - 09/20/2021 LABORATORY 1.04 11:59 AM SHIP KEEPER mg/dL Calcium 8.7 8.5 - 09/20/2021 LABORATORY 10.1 11:59 AM SHIP KEEPER mg/dL Glucose 114 (H) 70 - 99 09/20/2021 LABORATORY mg/dL 11:59 AM SHIP KEEPER Alkaline 102 40 - 150 09/20/2021 LABORATORY Phosphatase U/L 11:59 AM SHIP KEEPER AST 13 0 - 45 09/20/2021 LABORATORY U/L 11:59 AM SHIP KEEPER ALT 14 0 - 50 09/20/2021 LABORATORY U/L 11:59 AM SHIP KEEPER Protein Total 6.4 (L) 6.8 - 8.8 09/20/2021 LABORATORY g/dL 11:59 AM SHIP KEEPER Albumin 2.1 (L) 3.4 - 5.0 09/20/2021 LABORATORY g/dL 11:59 AM SHIP KEEPER Bilirubin Total 0.1 (L) 0.2 - 1.3 09/20/2021 LABORATORY mg/dL 11:59 AM SHIP KEEPER GFR Estimate >90 >60 09/20/2021 LABORATORY mL/min/1. 11:59 AM SHIP KEEPER 73m2 Comment: Effective July 31, 2021 eGF Rcr in adults is calculated using the 2020 CKD-EPI creatinine equation which includ es age and gender (Angelika et al., NEJM, DOI: 10.1056/[id number]) Specimen Anatomical Collection Method / Collection Time Recei iva Time (Source) Location / Volume Laterality Blood STRUCTURE OF RIGHT Venipuncture / 09/20/2021 11:36 05/2022 UPPER LIMB / Unknown AM SHIP KEEPER 11:39 AM SHIP KEEPER Unknown Jian Dunn MD LAB - BLOOD ORDERABLES Performing Organization Address City/State/ZIP Code [place] [address] Care Lab [address] Lab (1st floor, no room number) (ABNORMAL) CBC with platelets (09/20/2021 11:36 AM SHIP KEEPER) [facility] Method Time Signature WBC Count 8.6 4.0 - 11.0 09/20/2021 LABORATORY 10e3/uL 11:41 AM SHIP KEEPER RBC Count 4.20 3.80 - 09/20/2021 RH LABORATORY 5.20 11:41 AM SHIP KEEPER 10e6/uL Hemoglobin 9.7 (L) 11.7 - 09/20/2021 RH LABORATORY 15.7 g/dL 11:41 AM SHIP KEEPER Hematocrit 32.8 (L) 35.0 - 09/20/2021 RH LABORATORY 47.0 % 11:41 AM SHIP KEEPER MCV 78 78 - 100 09/20/2021 RH LABORATORY fL 11:41 AM SHIP KEEPER MCH 23.1 (L) 26.5 - 09/20/2021 RH LABORATORY 33.0 pg 11:41 AM SHIP KEEPER MCHC 29.6 (L) 31.5 - 09/20/2021 RH LABORATORY 36.5 g/dL 11:41 AM SHIP KEEPER RDW 15.2 (H) 10.0 - 09/20/2021 RH LABORATORY 15.0 % 11:41 AM SHIP KEEPER Platelet Count 234 150 - 450 09/20/2021 RH LABORATORY 10e3/uL 11:41 AM SHIP KEEPER Specimen Anatomical Collection Method / Collection Time Recei iva Time (Source) Location / Volume Laterality Blood STRUCTURE OF RIGHT Venipuncture / 09/20/2021 11:36 05/2022 UPPER LIMB / Unknown AM SHIP KEEPER 11:39 AM SHIP KEEPER Unknown Jian Dunn MD LAB - BLOOD ORDERABLES Performing Organization Address City/State/[place] [phone] Care Lab [address] Lab (1st floor, no room number) (ABNORMAL) Glucose by meter (09/20/2021 11:17 AM SHIP KEEPER) P athologist Signature GLUCOSE BY 122 (H) 70 - 99 09/20/2021 LABORATORY METER POCT mg/dL 11:24 AM SHIP KEEPER POC Specimen (Source) Anatomical Collection Method Collection Time Re ceived Time Location / / Volume Laterality Blood, Capillary BLOOD SPECIMEN / 09/20/2021 11:17 05/2022 Unknown AM SHIP KEEPER 11:24 AM SHIP KEEPER Jian Dunn MD LAB - BEAKER POCT Performing Organization Address City/State/ZIP Code Ph[place] [address] Care Lab [address] [facility] Lab (1st floor, no room number) documented in this encounter Visit Diagnoses Diagnosis S/P - Primary Other postprocedural status Elevated blood sugar Other abnormal glucose Pre-eclampsia Mild or unspecified pre-eclampsia, unspe cified as to episode of care documented in this encounter Admitting Diagnoses Diagnosis Pre-eclampsia Mild or unspecified pre-eclampsia, unspe cified as to episode of care documented in this encounter Administered Medications Inactive Administered Medications - up to 3 most recent administrations Medication Order MAR Action Action Date Dose Rate Site acetaminophen (TYLENOL) tablet 975 Given 09/21/2021 4:22 AM SHIP KEEPER 975 mg mg 975 mg, Oral, EVERY 6 HOURS PRN, mild pain, fever, Starting on Fri09/21/21 at 0418, Maximum acetaminophen dose from all sources = 75 mg/kg/day not to exceed 4 grams/day. acetaminophen (TYLENOL) tablet 975 mg Given 09/24/2021 11:29 AM SHIP KEEPER 975 mg 975 mg, Oral, EVERY 6 HOURS, First dose on Fri09/21/21 at 1730, Maximum acetaminophen dose from all sources = 75 mg/kg/day not to exceed 4 grams/day. Given 09/24/2021 2:32 AM SHIP KEEPER 975 mg Given 09/23/2021 7:13 PM SHIP KEEPER 975 mg aspirin EC tablet 81 mg Given 09/21/2021 9:17 AM SHIP KEEPER 81 mg 81 mg, Oral, DAILY, First dose on Fri09/21/21 at 0900, DO NOT CRUSH. betamethasone acet & sod Given 09/21/2021 1:57 PM SHIP KEEPER 12 mg Right Anterior Thigh phos (CELESTONE) injection 12 mg 12 mg, Intramuscular, EVERY 24 HOURS, First dose on Dilcia 09/20/21 at 1230, For 2 doses, OB Preadmission Given 09/20/2021 1:31 PM SHIP KEEPER 12 mg calcium gluconate 10 % injection 1 g 1 g, Intravenous, ONCE PRN, magnesium sulfate toxicity , Administer over 3-5 Minutes, Starting on Fri09/21/21 at 1344 , For 1 dose, STOP magnesium infusion and then notify provider IF signs of magnesi um toxicity appear (respirations less than 12 per minute, hypo-reflexia, bradycardia, change in n eurologic status, or decreased level of consciousness, slurred speech, musc le weakness, visual disturbances, or extreme thirst). Do not infuse in the same IV line as phosphate-containing solutions dextrose 50 % injection 25-50 mL 25-50 mL, Intravenous, EVERY 15 MIN PRN, low blood sug ar, Administer over 1-5 Minutes, Starting on 09/22/21 at 0808 , Use if have IV access, BG less than 70 mg/dL and meet dose criteria below: Dose if conscious and alert (or disorientated) and NPO = 25 mL Dose if unconscious / no t alert = 50 mL Give first dose for initial blood glucose less than 70 mg/dL. If blood glucose at 15 minute recheck is less than or equal to 100 mg/dL continue to a dminister carbohydrate treatment every 15 minutes, as needed, based on blood gluco se and assessment parameters until blood glucose level is above 100 mg/dL. Vesicant. diphenhydrAMINE (BENADRYL) 50 MG/ML inje ction Starting on Fri09/21/21 at 1351, For 1 dose, Drew Wang janie: cabinet override diphenhydrAMINE (BENADRYL) injection 25 mg Given 09/21/2021 1:53 PM SHIP KEEPER 25 mg 25 mg, Intravenous, EVERY 6 HOURS PRN, itching, Starting on Fri09/21/21 at 1352 famotidine (PEPCID) tablet 10 mg Given 09/21/2021 9:17 AM SHIP KEEPER 10 mg 10 mg, Oral, 2 TIMES DAILY, First dose on Dilcia 09/20/21 at 2100 Given 09/20/2021 9:28 PM SHIP KEEPER 10 mg fentaNYL (PF) (SUBLIMAZE) injection 25 m cg 25 mcg, Intravenous, EVERY 15 MIN PRN, other, acute pa in while in Phase II, Starting on Fri09/21/21 at 1720, Up to a total of 100 mcg. Use as a short acting IV agent for acute pain control. Patient must be monitore d a minimum of 30 minutes before leaving the facility and meet all Phase II disc harge criteria., Phase ll glucagon injection 1 mg 1 mg, Subcutaneous, EVERY 15 MIN PRN, low blood sugar, May repeat x 1 only, Starting on 09/22/21 at 0808, May giv e SQ or IM. ONLY use glucagon IF patient has NO IV access AND is UNABLE to swallo w AND blood glucose is LESS than or EQUAL to 50 mg/dL. glucose gel 15-30 g 15-30 g, Oral, EVERY 15 MIN PRN, low blo od sugar, Starting on 09/22/21 at 0808, Give first dose for initial blood glucose less than 70 mg/dL per the dosing instructions below. If blood glucose at 15 minute rechecks is still less than or equal to 100 mg/dL, continue to administ er doses per blood glucose parameters every 15 minutes, as needed, until blood glucose level is ab ove 100 mg/dL. Dosing Instructions: ~If patient is conscious a nd able to swallow and NO enteral tube For initial BG 51-69mg/dL OR 15 minute reche ck BG 51- 100 mg/dL - give 15 g For BG less than or equal to 50 mg/dL - give 30 g ~ If Enteral tube For initial BG 51-69mg/dL OR 15 minute recheck BG 51- 100 mg/dL - give apple juice 120 mL (4 oz or 15 g of CHO) via enteral tube For BG less than o r equal to 50 mg/dL - Give apple juice 240 mL (8 oz or 30 g of CHO) via enteral tub e ~Oral gel is preferable for conscious and able to swallow patient. ~IF gel unavail able or patient refuses may provide apple juice per Enteral tube dosing instructio ns. Document juice on I and O flowsheet. hydrALAZINE (APRESOLINE) injection 10 mg 10 mg, Intravenous, EVERY 20 MIN PRN, other, Acute Ons et Severe Hypertension Medication Algorithm, Administer over 2 Minutes, Starting on Fri09/21/21 at 1344, ~ IF SBP GREATER than or EQUAL to 160 or DBP GREATER annette n or EQUAL to 110 at 10 minutes following 3rd dose of labetalol, give IV hydralazine 10 mg over 2 minute AND NOTIFY PROVIDER ~ IF SBP GREATER annette n or EQUAL to 160 or DBP GREATER than or EQUAL to 110 at 20 minutes following 1st hydralazine dose and notify provider. An emergency consultation from a specialist is recommended. ~ DO NOT give if history of mitral valvular rheumatic heart disease or coronary heart disease. ibuprofen (ADVIL/MOTRIN) tablet 800 mg Given 09/24/2021 11:29 AM SHIP KEEPER 800 mg 800 mg, Oral, EVERY 6 HOURS, First dose on Fri09/22/21 at 1700, Give with food. Given 09/24/2021 2:32 AM SHIP KEEPER 800 mg Given 09/23/2021 7:13 PM SHIP KEEPER 800 mg insulin aspart (NovoLOG) injection (RAPID Given 09/21/2021 1:04 PM SHIP KEEPER 1 Units ACTING) 1-7 Units, Subcutaneous, 3 TIMES DAILY BEFORE MEALS, First dose on Dilcia 09/20/21 at 1700, Correction Scale - MEDIUM INSULIN RESISTANCE DOSING Do Not give Correction Insulin if Pre-Meal BG less than 140. For Pre-Meal BG 140 - 189 give 1 unit. For Pre-Meal BG 190 - 239 give 2 units. For Pre-Meal BG 240 - 289 give 3 units. For Pre-Meal BG 290 - 339 give 4 units. For Pre-Meal BG 340- 399 give 5 units. For Pre-Meal BG 400-449 give 6 units For Pre-Meal BG greater than or equal to 450 give 7 units. To be given with prandial insulin, and based on pre-meal blood glucose. Notify provider if glucose greater than or equal to 350 mg/dL after administration of correction dose. If given at mealtime, administer within 30 minutes of start of meal. Given 09/20/2021 7:00 PM SHIP KEEPER 1 Units insulin aspart (NovoLOG) injection (RAPID Given 09/22/2021 6:00 AM SHIP KEEPER 3 Units ACTING) 1-6 Units, Subcutaneous, EVERY 4 HOURS, First dose on Fri09/21/21 at 1430, Correction Scale - MEDIUM INSULIN RESISTANCE DOSING Do Not give Correction Insulin if BG less than 140. For BG 140 - 189 give 1 unit. For BG 190 - 239 give 2 units. For BG 240 - 289 give 3 units. For BG 290 - 339 give 4 units. For BG 340 - 399 give 5 units. For BG greater than or equal to 400 give 6 units. Check blood glucose Q4H and administer based on blood glucose. Notify provider if glucose greater than or equal to 350 mg/dL after administration of correction dose. If given at mealtime, administer within 30 minutes of start of meal. Given 09/22/2021 1:12 AM SHIP KEEPER 2 Units Given 09/21/2021 9:47 PM SHIP KEEPER 2 Units insulin aspart (NovoLOG) injection (RAPID Given 09/23/2021 9:54 PM SHIP KEEPER 1 Units ACTING) 1-7 Units, Subcutaneous, 3 TIMES DAILY BEFORE MEALS, First dose on 09/22/21 at 1200, Correction Scale - MEDIUM INSULIN RESISTANCE DOSING Do Not give Correction Insulin if Pre-Meal BG less than 140. For Pre-Meal BG 140 - 189 give 1 unit. For Pre-Meal BG 190 - 239 give 2 units. For Pre-Meal BG 240 - 289 give 3 units. For Pre-Meal BG 290 - 339 give 4 units. For Pre-Meal BG 340- 399 give 5 units. For Pre-Meal BG 400-449 give 6 units For Pre-Meal BG greater than or equal to 450 give 7 units. To be given with prandial insulin, and based on pre-meal blood glucose. Notify provider if glucose greater than or equal to 350 mg/dL after administration of correction dose. If given at mealtime, administer within 30 minutes of start of meal. Given 09/23/2021 5:10 PM SHIP KEEPER 1 Units Given 09/22/2021 8:58 PM SHIP KEEPER 2 Units insulin aspart (NovoLOG) injection (RAPI D ACTING) 1-5 Units, Subcutaneous, AT BEDTIME, First dose on 09/22/21 at 2200, MEDIUM INSULIN RESISTANCE DOSING Do Not give Be dtime Correction Insulin if BG less than 200. For BG 200 - 249 give 1 units. For BG 250 - 299 give 2 units. For BG 300 - 349 give 3 units. For BG 350 -399 give 4 units. For BG gre ater than or equal to 400 give 5 units. Notify provider if glucose greater than or equal to 350 mg/dL after administration of correction dose. If given at mealtim e, administer within 30 minutes of start of meal. insulin aspart (NovoLOG) injection (RAPID Given 09/24/2021 1 2:57 PM SHIP KEEPER 7 Units ACTING) Subcutaneous, 3 TIMES DAILY BEFORE MEALS, First dose on 09/22/21 at 1700, Dose = 1 units per 15 grams of carbohydate. If given at mealtime, administer within 30 minutes of start of meal. Given 09/23/2021 9:54 PM SHIP KEEPER 5 Units Given 09/23/2021 5:11 PM SHIP KEEPER 5 Units insulin NPH injection 10 Units Given 09/22/2021 8:56 PM SHIP KEEPER 10 Units 10 Units, Subcutaneous, 2 TIMES DAILY BEFORE MEALS, First dose on 09/22/21 at 0830 Given 09/22/2021 9:19 AM SHIP KEEPER 10 Units insulin NPH injection 10 Units Given 09/23/2021 5:13 PM SHIP KEEPER 10 Units 10 Units, Subcutaneous, DAILY WITH SUPPER, First dose on Fri09/23/21 at 1700 insulin NPH injection 15 Units Given 09/23/2021 11:30 AM SHIP KEEPER 15 Units 15 Units, Subcutaneous, 2 TIMES DAILY BEFORE MEALS, First dose (after last modification) on Fri09/23/21 at 0900 insulin NPH injection 15 Units 15 Units, Subcutaneous, EVERY MORNING BE FORE BREAKFAST, First dose on Fri09/24/21 at 0730 insulin NPH injection 32 Units Given 09/20/2021 9:34 PM SHIP KEEPER 32 Units 32 Units, Subcutaneous, AT BEDTIME, First dose on Fri09/20/21 at 2200 insulin NPH injection 40 Units Given 09/21/2021 9:52 AM SHIP KEEPER 40 Units 40 Units, Subcutaneous, EVERY MORNING, First dose on Fri09/21/21 at 0900 insulin regular injection 22 Units Given 09/21/2021 9:45 AM SHIP KEEPER 22 Units 22 Units, Subcutaneous, EVERY 24 HOURS, First dose (after last modification) on Fri09/21/21 at 0900, Give with breakfast If for prandial use, must be administered 30 min before meal or immediately after. insulin regular injection 30 Units Given 09/20/2021 7:02 PM SHIP KEEPER 30 Units 30 Units, Subcutaneous, DAILY WITH SUPPER, First dose (after last modification) on Fri09/20/21 at 1900, If for prandial use, must be administered 30 min before meal or immediately after. ketorolac (TORADOL) injection 30 mg Given 09/22/2021 9:29 AM SHIP KEEPER 30 mg 30 mg, Intravenous, EVERY 6 HOURS, First dose on Fri09/21/21 at 2130, For 3 doses, Can cause pain on injection. If ordered intravenously (IV) : administer through a running maintenance fluid over 1 minute followed by a flush. If patient complains of pain on injection, may dilute 15-30 mg in 5 mL and push over 1 to 2 minutes. Given 09/22/2021 3:49 AM SHIP KEEPER 30 mg Given 09/21/2021 9:46 PM SHIP KEEPER 30 mg labetalol (NORMODYNE/TRANDATE) 5 MG/ML i njection Starting on Fri09/21/21 at 1347, For 1 dose, Drew aWngn: cabinet override PROTECT FROM LIGHT. labetalol (NORMODYNE/TRANDATE) algorithm -medication instruction CONTINUOUS PRN, Starting on Fri09/21/21 at 1344, Until Fri09/24/21 at 1529 labetalol (NORMODYNE/TRANDATE) injection 10 mg Given 09/21/2021 4:40 PM SHIP KEEPER 10 mg 10 mg, Intravenous, EVERY 15 MIN PRN, other, for Systolic Blood Pressure greater than 160 mmHg while Heart Rate greater than 60 bpm, Starting on Fri09/21/21 at 1632, For 2 doses, For PACU USE ONLY. PROTECT FROM LIGHT., PACU labetalol (NORMODYNE/TRANDATE) injection 20-80 Given 0 09/21/2021 1:50 PM SHIP KEEPER 20 mg mg 20-80 mg, Intravenous, EVERY 10 MIN PRN, other, Acute Onset Severe Hypertension Medication Algorithm, Administer over 2 Minutes, Starting on Fri09/21/21 at 1344, ~ IF Systolic Blood Pressure (SBP) GREATER than or EQUAL to 160mmHg OR Diastolic Blood Pressure (DBP) GREATER than or EQUAL to 110mmHg x2 persistent readings 15 minutes apart, notify provider, begin administration of Acute Onset Hypertension Algorithm medications and assess blood pressure every 10 minutes. ~ Administer IV labetalol 20 mg over 2 minutes ~ IF SBP GREATER than or EQUAL to 160 or DBP GREATER than or EQUAL to 110 at 10 minutes following 1st dose of labetalol, give 2nd dose of IV labetalol 40 mg over 2 minutes ~ IF SBP GREATER than or EQUAL to 160 or DBP GREATER than or EQUAL to 110 at 10 minutes following 2nd dose of labetalol, give 3rd dose of IV labetalol 80 mg over 2 minutes ~ IF SPB GREATER than or EQUAL to 160 or DBP GREATER than or EQUAL to 110 at 10 minutes following 3rd dose of labetalol, progress to IV hydralazine ~ DO NOT give if history of asthma or congestive heart failure. HOLD Labetalol IF maternal HR LESS than 60 AND notify provider for further orders ~ MAX recommended daily dose: 300 mg/24hours. PROTECT FROM LIGHT. lactated ringers BOLUS 250 mL New Bag 09/21/2021 12:36 AM SHIP KEEPER 250 mLs Intravenous, 250 mL, ONCE, On Fri09/21/21 at 0100, For 1 dose lactated ringers infusion Rate/Dose Change 09/21/2021 2:00 AM SHIP KEEPER 10 mL/hr at 10 mL/hr, Intravenous, CONTINUOUS, Starting on Fri09/21/21 at 0200, Until Fri09/21/21 at 1721 lactated ringers infusion New Bag 09/22/2021 1:06 AM SHIP KEEPER 75 mL/hr 75 mL/hr at 10-125 mL/hr, Intravenous, CONTINUOUS, Titrate lactated ringers rate to obtain total IV intake of 125 mL/hour, Starting on Fri09/21/21 at 1400, Until Fri09/24/21 at 1529 lactated ringers infusion Restarted 09/21/2021 1:35 PM SHIP KEEPER 200 mL/hr at 200 mL/hr, Intravenous, CONTINUOUS, Up to 500 mL total, Pre-procedure, Starting on Fri09/21/21 at 1430, Until Fri09/21/21 at 1623 LORazepam (ATIVAN) injection 2 mg 2 mg, Intravenous, EVERY 3 MIN PRN, seiz ures, IF unresponsive to magnesium dosing., Administer over 1 Minutes, Starting on F 09/21/21 at 1344, For 4 doses, This drug may cause significant respiratory depres latha. Monitor respiratory status and vital signs carefully for 1 hour after each dose. magnesium sulfate 2 g in water intermitt ent infusion 2 g, Intravenous, Administer over 5 Isabella racquel, Once PRN for SEIZURES, other, loading dose for ACTIVE MANAGEMENT OF SEIZURES, give If on mag nesium sulfate infusion., Starting on Fri09/21/21 at 1344, For 1 dose, ~ Notify Provider ~ Monitor Blood pressure, pulse, respiratory rate & oxygen saturation now and every 5 minutes during magnesium sulfate loading dose. magnesium sulfate 4 g in 100 mL sterile water (premade) 4 g, Intravenous, Administer over 15-20 Minutes, Once PRN for SEIZURES, other, loading dose, for ACTIVE MANAGEMENT OF S EIZURES, give If NOT on magnesium sulfate infusion., Starting on Fri09/21/21 at 13 44, For 1 dose, ~ Notify Provider ~ Monitor Blood pressure, pulse, respiratory rate & oxygen saturation now and every 5 minutes during magnesium sulfate loading dose magnesium sulfate 4 g in 100 mL sterile water New Bag 1:58 PM SHIP KEEPER 4 g (premade) 4 g, Intravenous, Administer over 30 Minutes, ONCE, On Fri09/21/21 at 1400, For 1 dose, FOR SEIZURE PROPHYLAXIS. Infuse over 30 minutes per infusion control pump. Must run concurrently with maintenance IV fluid. Insert at closest possible Y-site in main-line IV. Stay with patient during loading dose. Monitor Blood pressure, pulse, respiratory rate & oxygen saturation now and every 5 minutes during magnesium sulfate loading dose magnesium sulfate 4 GM/100ML infusion Starting on Fri09/21/21 at 1347, For 1 dose, Drew Wang: cabinet override magnesium sulfate infusion New Bag 09/22/2021 9:18 AM SHIP KEEPER 2 g/hr 50 mL/hr 2 g/hr (50 mL/hr), Intravenous, CONTINUOUS, Starting on Fri09/21/21 at 1430, For 5 days, STOP infusion and then notify provider IF signs of magnesium toxicity appear (respirations less than 12 per minute, hypo-reflexia, bradycardia, change in neurologic status, or decreased level of consciousness, slurred speech, muscle weakness, visual disturbances or extreme thirst). Monitor Blood pressure, pulse, respiratory rate & oxygen saturation during magnesium infusion every 30 minutes x 2, then every 1 hour until stable, then every 4 hours or as clinically indicated. Not for use beyond 5 days in pre-term labor. New Bag 09/21/2021 2:36 PM SHIP KEEPER 2 g/hr 50 mL/hr magnesium sulfate injection 10 g 10 g, Intramuscular, ONCE PRN, seizures IF unable to o btain IV access in an emergent situation., Starting on 09/11 at 1344, For 1 dose, Give 2.5 grams IM in four large-muscle sites Must obtain from emergency cart or from pharmacy. ~ Notify Provider ~ Monitor Blood pressure, pulse, respi ratory rate & oxygen saturation and every 5 minutes following magnesium sul fate injection dose until otherwise directed by provider meperidine (DEMEROL) injection 12.5 mg 12.5 mg, Intravenous, EVERY 15 MIN PRN, post anesthesia shivering, Starting on Fri09/21/21 at 1720, For 2 doses, PACU/Phase II metoclopramide (REGLAN) injection 10 mg 10 mg, Intravenous, Administer over 2 Mi nutes, EVERY 6 HOURS PRN, nausea, vomiting, Starting on Fri09/21/21 at 1720, This is Step 1 of OB nausea and vomiting management. If nausea is not resolved in 30 minutes, go to Step 2 (Zofran). Avoid use if patient has full bowel obstruction or perforati on. Irritant. metoclopramide (REGLAN) tablet 10 mg Given 09/21/2021 1:02 PM SHIP KEEPER 10 mg 10 mg, Oral, 4 TIMES DAILY BEFORE MEALS & NIGHTLY, First dose on Fri09/21/21 at 0830, Recommend to take before meals. Avoid use if patient has full bowel obstruction or perforation. Avoid use if patient has full bowel obstruction or perforation. Given 09/21/2021 9:18 AM SHIP KEEPER 10 mg metoclopramide (REGLAN) tablet 10 mg 10 mg, Oral, EVERY 6 HOURS PRN, nausea and vomiting, S tarting on Fri09/21/21 at 1720, This is Step 1 of OB nausea and vomiting managem ent. If nausea is not resolved in 30 minutes, go to Step 2 (Zo davis) Avoid use if patient has full bowel obstruction or perforation. misoprostol (CYTOTEC) tablet 400 mcg 400 mcg, Oral, GIVE ONCE PRN AND REPEAT ACCORDING TO I NSTRUCTIONS, post- hemorrhage, Starting on Fri09/21/21 at 1720, Administe r only if directed by provider. Max administrations: 4 doses misoprostol (CYTOTEC) tablet 800 mcg 800 mcg, Rectal, GIVE ONCE PRN AND REPEA T ACCORDING TO INSTRUCTIONS, post- hemorrhage, Starting on Fri09/21/21 at 1 720, Give rectally if unable to take oral without complications. Administer only if directed by provider. Max administrations: 4 doses. naloxone (NARCAN) injection 0.2 mg 0.2 mg, Intravenous, EVERY 2 MIN PRN, op ioid reversal, Starting on Fri09/21/21 at 1738, Administer intravenous route when available and notify provider when administered. For unintended sedation or respiratory depression if all of the below criteria are met: ~ respiratory rate LES S than or EQUAL to 8. ~SaO2 less than 92% and or/end-tidal CO2 is greater than 50. ~ the patient is receiving an opioid, has unintended sedations assessed as RASS (-3), and is cur rently not on mechanical ventilation. RASS scale moderate (-3) is movement or eye opening to voice but no eye contact. Patient Monitoring Once the patient has demonstrated a response to the naloxone, continue to monitor respiratory rate, depth, oxygen saturation and end-tidal CO2 (if available) every 15 mi nutes x 2, then every 30 minutes x 2, then every 1 hour x 1 after each naloxone dose. Consider tr ansfer to ICU if patient respiratory parameters have not improved after 4 nalox one doses. naloxone (NARCAN) injection 0.2 mg 0.2 mg, Intramuscular, EVERY 2 MIN PRN, opioid reversal, Starting on Fri09/21/21 at 1738, Administer intramuscular if an int ravenous route is not available and notify provider when administered. For unintend ed sedation or respiratory depression if all of the below criteria are met: ~ respiratory rate LESS than or EQUAL to 8. ~SaO2 less than 92% and or/end-tidal CO2 is greater th an 50. ~ the patient is receiving an opioid, has unintended sedations assessed as RASS (-3), and is currently not on mechanical ventilation. RASS scale moderate (-3) is movement or eye opening to voice but no eye contact. Patient Monitoring Once the patient has demonstrated a response to the naloxone, continue to m onitor respiratory rate, depth, oxygen saturation and end-tidal CO2 (if availab le) every 15 minutes x 2, then every 30 minutes x 2, then every 1 hour x 1 after each naloxone dose. Consider transfer to ICU if patient respiratory parameters have not improved after 4 naloxone doses. naloxone (NARCAN) injection 0.4 mg 0.4 mg, Intravenous, EVERY 2 MIN PRN, op ioid reversal, Starting on Fri09/21/21 at 1738, Administer intravenous route when available and notify provider when administered. For unintended sedation or respiratory depression if all of the below criteria are met: ~ respiratory rate LES S than or EQUAL to 8. ~ SaO2 less than 92% and or/end-tidal CO2 is greater than 50. ~ the patient is receiving an opioid, has unintended sedation assessed as RASS (-4 ) or (-5) and patient is currently not on mechanical ventilation. RASS scale (-4) is deep sedation with no response to voice but movement or eye opening to physical stimulation. R ASS scale (-5) is unarousable. Patient Monitoring Once the patient has demonstrated a response to the naloxone, continue to monitor respiratory rate, depth, oxygen saturation and end-tidal CO2 (if available) every 15 mi nutes x 2, then every 30 minutes x 2, then every 1 hour x 1 after each naloxone dose. Consider tr ansfer to ICU if patient respiratory parameters have not improved after 4 nalox one doses. naloxone (NARCAN) injection 0.4 mg 0.4 mg, Intramuscular, EVERY 2 MIN PRN, opioid reversal, Starting on Fri09/21/21 at 1738, Administer intramuscular if an int ravenous route is not available and notify provider when administered. For unintend ed sedation or respiratory depression if all of the below criteria are met: ~ res piratory rate LESS than or EQUAL to 8. ~ SaO2 less than 92% and or/end-tidal CO2 is greater annette n 50. ~ the patient is receiving an opioid, has unintended sedation assessed as RASS (-4) or (-5) and patient is currently not on mechanical ventilation. RA SS scale (-4) is deep sedation with no response to voice but movement or eye opening to physical stimulation. RASS scale (-5) is unarousa ble. Patient Monitoring Once the patient has demonstrated a response to the nalox one, continue to monitor respiratory rate, depth, oxygen saturation and end-tidal CO2 (if availab le) every 15 minutes x 2, then every 30 minutes x 2, then every 1 hour x 1 after each naloxone dose. Consider transfer to ICU if patient respiratory parameters have not improved after 4 naloxone doses. NIFEdipine (PROCARDIA) capsule 20 mg Given 09/21/2021 6:27 AM SHIP KEEPER 20 mg 20 mg, Oral, EVERY 6 HOURS, First dose on Fri09/21/21 at 0100, Max duration: 48 hours *NURSE TO SCHEDULE FIRST DOSE to begin 6 hours after any prior doses given to suppress uterine activity.* Maximum NIFEdipine dose = 160 mg/ 24 hours. HOLD if Systolic Blood Pressure less than 90 mmHg and/or Diastolic Blood Pressure less than 50 mmHg., Antepartum Given 09/21/2021 12:38 AM SHIP KEEPER 20 mg ondansetron (ZOFRAN) injection 4 mg 4 mg, Intravenous, EVERY 6 HOURS PRN, nausea, vomiting , Administer over 2-5 Minutes, Starting on Fri09/21/21 at 1720 , This is Step 2 of OB nausea and vomiting management. Give if nausea not resolved 30 minutes aft er giving metoclopramide (REGLAN). If nausea is not resolved in 15 minutes, go to Step 3 (Compazine). Irritant. ondansetron (ZOFRAN-ODT) ODT tab 4 mg 4 mg, Oral, EVERY 6 HOURS PRN, nausea, v omiting, Starting on Fri09/21/21 at 1720, This is Step 2 of OB nausea and vomiting management. Give If nausea not resolved in 30 minutes after giving metoclopramide ( REGLAN). If nausea is not resolved in 15 minutes, go to Step 3 (Compazine). With dry hands, pee l back foil backing and gently remove tablet. Do not push oral d isintegrating tablet through foil backing. Administer immediately on tongue and oral disintegrati ng tablet dissolves in seconds, then swallow with saliva. Liquid not required . oxyCODONE (ROXICODONE) tablet 5-10 mg Given 09/24/2021 11:30 AM SHIP KEEPER 5 mg 5-10 mg, Oral, EVERY 4 HOURS PRN, other, pain control or improvement in physical function. Hold dose for analgesic side effects., Starting on Fri09/21/21 at 1720, Notify provider to assess for uncontrolled pain or analgesic side effects. Hold while on ACCOUNTANT SYSTEM[employer] or with regular IV opioid dosing. Maximum total is 60 mg in 24 hours. Given 09/23/2021 9:52 PM SHIP KEEPER 5 mg Given 09/21/2021 9:45 PM SHIP KEEPER 5 mg prochlorperazine (COMPAZINE) injection 1 0 mg 10 mg, Intravenous, EVERY 6 HOURS PRN, n ausea, vomiting, Administer over 2 Minutes, Starting on Fri09/21/21 at 1720, This is Step 3 of OB nausea and vomiting management. Give if nausea not resolved 15 minutes aft er giving ondansetron (ZOFRAN). If nausea is not resolved in 30 minutes, not jason provider. prochlorperazine (COMPAZINE) suppository 25 mg 25 mg, Rectal, EVERY 12 HOURS PRN, nausea, vomiting, S tarting on Fri09/21/21 at 1720, This is Step 3 of OB nausea and vomiting managem ent. Give if nausea not resolved 15 minutes after giving ondanse hermelinda (ZOFRAN). If nausea is not resolved in 30 minutes, notify provider. prochlorperazine (COMPAZINE) tablet 10 m g 10 mg, Oral, EVERY 6 HOURS PRN, nausea, vomiting, Starting on Fri09/21/21 at 1720, This is Step 3 of OB nausea and vomiting management. Give if nausea not resolved 15 minutes after giving ondansetron (ZOFRAN ). If nausea is not resolved in 30 minutes, notify provider. senna-docusate (SENOKOT-S/PERICOLACE) Given 09/22/2021 9:[address] 1 tablet 8.6-50 MG per tablet 1 tablet 1 tablet, Oral, 2 TIMES DAILY, First dose on Fri09/21/21 at 2100, If no bowel movement in 24 hours, increase to 2 tablets PO. Hold for loose stools. Preferred agent for constipation related to opioids. Hold for loose stools. Given 09/21/2021 9:46 PM SHIP KEEPER 1 tablet senna-docusate (SENOKOT-S/PERICOLACE) 8. 6-50 MG per tablet 2 tablet 2 tablet, Oral, 2 TIMES DAILY, First dos e on Fri09/21/21 at 2100, Hold for loose stools. Preferred agent for constipation related to opioids. Hold for loose stools. sodium chloride (PF) 0.9% PF flush 3 mL Given 09/21/2021 9:35 AM SHIP KEEPER 3 mLs 3 mL, Intracatheter, EVERY 8 HOURS, First dose on Fri09/21/21 at 1000 sodium chloride (PF) 0.9% PF flush 3 mL Given 09/24/2021 2:20 AM SHIP KEEPER 3 mLs 3 mL, Intracatheter, EVERY 8 HOURS, First dose on Fri09/21/21 at 1730, to lock peripheral IV dormant line Given 09/22/2021 3:11 PM SHIP KEEPER 3 mLs Given 09/22/2021 9:25 AM SHIP KEEPER 3 mLs sodium chloride 0.9% (bottle) irrigation Given 09/21/2021 3:40 PM SHIP KEEPER 750 mLs PRN, Starting on Fri09/21/21 at 1540, Anesthesia Intra-op documented in this encounter Active and Recently Administered Medications Times are shown in SHIP KEEPER. Scheduled Medication Order 09/22/2021 09/23/2021 09/24/2021 acetaminophen (TYLENOL) tablet 975 mg 0020 (Given - Pr ovider: Allison Núñez RN)0602 (Not Given - Provider: Judie Ochoa RN - Reason: Patient/family refused)0921 (Given - Provider: Any Ruiz RN)1557 (Given - Provider: Any Ruiz RN) 0649 (Given - Provider: Judie Ochoa RN)1319 (Given - Provider: Caridad Stout RN)191 (Given - Provider: Rufina Mcpherson RN) 023 (Given - Provider: [place] arreguin RN)1129 (Given - Provider: Deandra Taylor RN)1430 (Canceled Entry - Provider: Orders Generic Provider - Comment: Automatically canceled at discontinue of medication order) 975 mg, Oral, EVERY 6 HOURS, First dose on Fri09/21/21 at 1730, Maximum acetaminophen dose from all sources = 75 mg/kg/day not to exceed 4 grams/day. 2233 (Given - Provider: Judie Ochoa RN) ibuprofen (ADVIL/MOTRIN) tablet 800 mg 1557 (Given - P rovider: Any Ruiz RN)2233 (Given - Provider: Judie Ochoa RN) 0649 (Given - Provider: Judie Ochoa RN)1319 (Given - Provider: Caridad Stout, ELVIS)191 (Given - Provider: Rufina Mcpherson RN) 023 (Given - Provider: [place] arreguin RN)112 (Given - Provider: Deandra Taylor RN)1430 (Canceled Entry - Provider: Orders Generic Provider - Comment: Automatically canceled at discontin ue of medication order) 800 mg, Oral, EVERY 6 HOURS, First dose on Fri09/22/21 at 1700, Give with food. insulin aspart (NovoLOG) injection (RAPID ACTING) (CAN CELED) 0112 (Given - Provider: Allison Núñez RN - Comment: BG 229)0600 (Given - Provider: Judie Ochoa RN - Comment: BG 261) 1-6 Units, Subcutaneous, EVERY 4 HOURS, First dose on Fri09/21/21 at 1430, Correction Scale - MEDIUM INSULIN RESISTANCE DOSING Do Not give Correction Insulin if BG less than 140. For BG 140 - 189 give 1 unit. For BG 190 - 239 give 2 units. Fo r BG 240 - 289 give 3 units. For BG 290 - 339 give 4 units. For BG 340 - 399 give 5 units. For BG greater than or equal to 400 give 6 units. Check blood glucose Q 4H and administer based on blood glucose . Notify provider if glucose greater than or equal to 350 mg/dL after administration of correction dose. If given at mealtime, administer within 30 minutes of start of meal. insulin aspart (NovoLOG) injection (RAPID ACTING) 1445 (Given - Provider: Any Ruiz RN - Comment: 220)2058 (Given - Provider: Judie Ochoa RN - Comment: patient ate late supper. BG 220) 1128 (Not Given - Provider: Caridad Stout RN - Reason: Order parameters not met - Comment: 107 bs)1710 (Given - Provider: Rufina Mcpherson RN)2154 (Given - Provider: Rufina Mcpherson RN - Comment: dinner ot 167) 1206 (Not Given - Provider: Deandra Terrazas RN - Reason: Order parameters not met - Comment: OT prior to first meal of day was 107.)1207 (Canceled Entry - Provider: Deandra Taylor RN) 1-7 Units, Subcutaneous, 3 TIMES DAILY B EFORE MEALS, First dose on 09/22/21 at 1200, Correction Scale - MEDIUM INSULIN RESISTANCE DOSING Do Not give Correction Insulin if Pre-Meal BG less than 140. F or Pre-Meal BG 140 - 189 give 1 unit. Fo r Pre-Meal BG 190 - 239 give 2 units. For Pre-Meal BG 240 - 289 give 3 units. For Pre-Meal BG 290 - 339 give 4 units. For Pre-Meal BG 340- 399 give 5 units. For P re-Meal BG 400-449 give 6 units For Pre- Meal BG greater than or equal to 450 give 7 units. To be given with prandial insulin, and based on pre-meal blood glucose. Notify provider if glucose greater than or equal to 350 mg/dL after administrat ion of correction dose. If given at mealtime, administer within 30 minutes of start of meal. insulin aspart (NovoLOG) injection (RAPID ACTING) 2245 (Not Given - Provider: Judie Ochoa RN - Reason: Other - Comment: too soon. patient ate meal at 2100 and received meal novolog at that time) 2201 (Not Given - Provider: Rufina Mcpherson RN - Reason: Other - Comment: BS 167 , not neededbut pt had late dinner.) 1-5 Units, Subcutaneous, AT BEDTIME, Fir st dose on 09/22/21 at 2200, MEDIUM INSULIN RESISTANCE DOSING Do Not give Bedtime Correction Insulin if BG less than 200. For BG 200 - 249 give 1 units. For BG 250 - 299 give 2 units. For BG 300 - 34 9 give 3 units. For BG 350 -399 give 4 units. For BG greater than or equal to 400 give 5 units. Notify provider if glucose greater than or equal to 350 mg/dL afte r administration of correction dose. If given at mealtime, administer within 30 minutes of start of meal. insulin aspart (NovoLOG) injection (RAPID ACTING) 2231 (Given - Provider: Judie Ochoa RN - Comment: 90grams of carbs) 1125 (Given - Provider: Caridad Stout RN)1711 (Given - Provider: Rufina Mcpherson RN - Comment: pizza and fruit - 75g)2154 (Given - Provider: Rufina Mcpherson RN - Comment: rice - 75gLate dinner) 1257 (Given - Provider: Deandra Burton RN - Comment: 111 carbs)1427 (Not Given - Provider: Deandra Taylor RN - Reason: Order parameters not met - Comment: had not eaten. was in NICU) Subcutaneous, 3 TIMES DAILY BEFORE MEALS , First dose on 09/22/21 at 1700, Dose = 1 units per 15 grams of carbohydate. If given at mealtime, administer within 30 minutes of start of meal. insulin NPH injection 10 Units (CANCELED) 0919 (Given - Provider: Any Ruiz RN)2056 (Given - Provider: Judie Ochoa RN - Comment: patient eating late supper) 1330 (Not Given - Provider: Caridad ricketts RN - Reason: Med discontinued by Provider) 10 Units, Subcutaneous, 2 TIMES DAILY BE FORE MEALS, First dose on 09/22/21 at 0830 insulin NPH injection 10 Units 1713 (Given - Pro vider: Rufina Mcpherson RN) 10 Units, Subcutaneous, DAILY WITH SUPPER, First dose on Sun 09/11 10/30 at 1700 insulin NPH injection 15 Units (CANCELED) 1130 (Given - Provider: Caridad Stout RN) 15 Units, Subcutaneous, 2 TIMES DAILY BE FORE MEALS, First dose (after last modification) on 09/23/21 at 0900 insulin NPH injection 15 Units 0 730 (Canceled Entry - Provider: Orders Generic Provider - Comment: Automatically canceled at discontinue of medication order) 15 Units, Subcutaneous, EVERY MORNING BE FORE BREAKFAST, First dose on 09/24/21 at 0730 ketorolac (TORADOL) injection 30 mg (COMPLETED) 0349 ( Given - Provider: Allison Núñez RN)0929 (Given - Provider: Any Ruiz RN) 30 mg, Intravenous, EVERY 6 HOURS, First dose on Fri09/21/21 at 2130, For 3 doses, Can cause pain on injection. If ordered intravenously (IV) : administer through a running maintenance fluid over 1 isabella te followed by a flush. If patient compl ains of pain on injection, may dilute 15-30 mg in 5 mL and push over 1 to 2 minutes. senna-docusate (SENOKOT-S/PERICOLACE) 8. 6-50 MG per tablet 1 tablet(Linked Group 1) 0920 (Given - Provider: nAy Ruiz RN)2247 (See Alternative - Provider: Judie Ochoa RN) 1128 (Not Given - Provider: Caridad ricketts RN - Reason: Other - Comment: loose stools)2132 (Not Given - Provider: Rufina Mcpherson RN - Reason: Patient/family refused - Comment: loose stools) 1100 (Not Given - Provider: Deandra Taylor RN - Reason: Patient/family refused) 1 tablet, Oral, 2 TIMES DAILY, First dos e on Fri09/21/21 at 2100, If no bowel movement in 24 hours, increase to 2 tablets PO. Hold for loose stools. Preferred agent for constipation related to opioids. Hold for loose stools. senna-docusate (SENOKOT-S/PERICOLACE) 8. 6-50 MG per tablet 2 tablet(Linked Group 1) 0920 (See Alternative - Provider: Any Ruiz, ELVIS)2247 (Not Given - Provider: Judie Ochoa RN - Reason: Contraindicated) 1128 (See Alternative - Provider: Caridad Stout, ELVIS)2132 (See Alternative - Provider: Rufina Mcpherson RN) 1100 (See Alternative - Provider: Piotr Taylor RN) 2 tablet, Oral, 2 TIMES DAILY, First dos e on Fri09/21/21 at 2100, Hold for loose stools. Preferred agent for constipation related to opioids. Hold for loose stools. sodium chloride (PF) 0.9% PF flush 3 mL 0106 (Given - Provider: Allison Núñez RN)0925 (Given - Provider: Any Ruiz RN)1511 (Given - Provider: Any Ruiz RN)1730 (Canceled Entry - Provider: Any Riuz RN) 0130 (Canceled Entry - Provider: Judie Ochoa RN)1129 (Canceled Entry - Provider: Caridad Stout RN)1727 (Not Given - Provider: Rufina Mcpherson RN - Reason: No IV Access) 0220 (Given - Provider: [place] arreguin RN)1205 (Canceled Entry - Provider: Deandra Taylor, ELVIS) 3 mL, Intracatheter, EVERY 8 HOURS, Firs t dose on Fri09/21/21 at 1730, to lock peripheral IV dormant line Continuous Medication Order 09/22/2021 09/23/2021 09/24/2021 lactated ringers infusion 0106 (New Bag - Provider: Allison Núñez, ELVIS) at 10-125 mL/hr, Intravenous, CONTINUOUS , Titrate lactated ringers rate to obtain total IV intake of 125 mL/hour, Starting on Fri09/21/21 at 1400, Until Fri09/24/21 at 1529 magnesium sulfate infusion 0918 (New Bag - Provider: Marisol Ruiz, ELVIS)1503 (Stopped - Provider: Any Ruiz RN) 2 g/hr (50 mL/hr), Intravenous, CONTINUO US, Starting on Fri09/21/21 at 1430, For 5 days, STOP infusion and then notify provider IF signs of magnesium toxicity appear (respirations less than 12 per minut e, hypo-reflexia, bradycardia, change in neurologic status, or decreased level of consciousness, slurred speech, muscle weakness, visual disturbances or extreme thirst). Monitor Blood pressure, pulse, r espiratory rate & oxygen saturation duri ng magnesium infusion every 30 minutes x 2, then every 1 hour until stable, then every 4 hours or as clinically indicated. Not for use beyond 5 days in pre-term labor. PRN Medication Order 09/22/2021 09/23/2021 09/24/2021 bisacodyl (DULCOLAX) Suppository 10 mg 10 mg, Rectal, DAILY PRN, constipation, Starting on Fri09/23/21 at 0000, Start POD 2 Hold for loose stools. calcium gluconate 10 % injection 1 g 1 g, Intravenous, ONCE PRN, magnesium crocker lfate toxicity , Administer over 3-5 Minutes, Starting on Fri09/21/21 at 1344, For 1 dose, STOP magnesium infusion and then notify provider IF signs of magnesium toxicity appear (respirations less than 12 per minute, hypo-reflexia, bradycardia, change in neurologic status, or decreased level of consciousness, slurred speech, muscle weakness, visual disturbances, or extreme thirst). Do not infuse in th e same IV line as phosphate-containing solutions carboprost (HEMABATE) injection 250 mcg 250 mcg, Intramuscular, EVERY 15 MIN PRN , ONLY for uterine atony with significant bleeding POST-DELIVERY, Starting on Fri09/21/21 at 1720, Notify provider IF uterine atony and clarify with provider medi cation preference. Administer only if di rected by provider. Give with caution in patients with asthma, active pulmonary, hepatic, renal or cardiovascular disease. dextrose 50 % injection 25-50 mL(Linked Group 2) 25-50 mL, Intravenous, EVERY 15 MIN PRN, low blood sugar, Administer over 1-5 Minutes, Starting on 09/22/21 at 0808, Use if have IV access, BG less than 70 mg/dL and meet dose criteria below: Dose if conscious and alert (or disorientated) and NPO = 25 mL Dose if unconscious / not alert = 50 mL Give first dose for initial blood glucose less than 70 mg/dL. If blood glucose at 15 minute recheck is les s than or equal to 100 mg/dL continue to administer carbohydrate treatment every 15 minutes, as needed, based on blood glucose and assessment parameters until blood glucose level is above 100 mg/dL. Vesicant. fentaNYL (PF) (SUBLIMAZE) injection 25 mcg 25 mcg, Intravenous, EVERY 15 MIN PRN, o ther, acute pain while in Phase II, Starting on Fri09/21/21 at 1720, Up to a total of 100 mcg. Use as a short acting IV agent for acute pain control. Patient must be monitored a minimum of 30 minutes be fore leaving the facility and meet all Phase II discharge criteria., Phase ll glucagon injection 1 mg(Linked Group 2) 1 mg, Subcutaneous, EVERY 15 MIN PRN, lo w blood sugar, May repeat x 1 only, Starting on 09/22/21 at 0808, May give SQ or IM. ONLY use glucagon IF patient has NO IV access AND is UNABLE to swallow AND blood glucose is LESS than or EQUAL to 50 mg/dL. glucose gel 15-30 g(Linked Group 2) 15-30 g, Oral, EVERY 15 MIN PRN, low blo od sugar, Starting on 09/22/21 at 0808, Give first dose for initial blood glucose less than 70 mg/dL per the dosing instructions below. If blood glucose at 15 minute rechecks is still less than or eq ual to 100 mg/dL, continue to administer doses per blood glucose parameters every 15 minutes, as needed, until blood glucose level is above 100 mg/dL. Dosing Inst ructions: ~If patient is conscious and a ble to swallow and NO enteral tube For initial BG 51-69mg/dL OR 15 minute recheck BG 51- 100 mg/dL - give 15 g For BG less than or equal to 50 mg/dL - give 30 g ~ If Enteral tube For initial BG 51-69mg/ dL OR 15 minute recheck BG 51- 100 mg/dL - give apple juice 120 mL (4 oz or 15 g of CHO) via enteral tube For BG less than or equal to 50 mg/dL - Give apple juice 240 mL (8 oz or 30 g of CHO) via entera l tube ~Oral gel is preferable for conscious and able to swallow patient. ~IF gel unavailable or patient refuses may provide apple juice per Enteral tube dosing i nstructions. Document juice on I and O flowsheet. hydrALAZINE (APRESOLINE) injection 10 mg 10 mg, Intravenous, EVERY 20 MIN PRN, ot her, Acute Onset Severe Hypertension Medication Algorithm, Administer over 2 Minutes, Starting on Fri09/21/21 at 1344, ~ IF SBP GREATER than or EQUAL to 160 or DB P GREATER than or EQUAL to 110 at 10 min utes following 3rd dose of labetalol, give IV hydralazine 10 mg over 2 minute AND NOTIFY PROVIDER ~ IF SBP GREATER than or EQUAL to 160 or DBP GREATER than or EQU AL to 110 at 20 minutes following 1st hy dralazine dose and notify provider. An emergency consultation from a specialist is recommended. ~ DO NOT give if history of mitral valvular rheumatic heart disease or coronary heart disease. hydrocortisone 2.5 % cream Rectal, 3 TIMES DAILY PRN, hemorrhoids, Starting on Fri09/21/21 at 1720, Apply to hemorrhoids. Send only if nurse requests. labetalol (NORMODYNE/TRANDATE) algorithm-medication instruction CONTINUOUS PRN, Starting on Fri09/21/21 at 1344, Until Fri at 1529 labetalol (NORMODYNE/TRANDATE) injection 20-80 mg 20-80 mg, Intravenous, EVERY 10 MIN PRN, other, Acute Onset Severe Hypertension Medication Algorithm, Administer over 2 Minutes, Starting on Fri09/21/21 at 1344, ~ IF Systolic Blood Pressure (SBP) GREAT ER than or EQUAL to 160mmHg OR Diastolic Blood Pressure (DBP) GREATER than or EQUAL to 110mmHg x2 persistent readings 15 minutes apart, notify provider, begin administration of Acute Onset Hypertension Algorithm medications and assess blood p ressure every 10 minutes. ~ Administer IV labetalol 20 mg over 2 minutes ~ IF SBP GREATER than or EQUAL to 160 or DBP GREATER than or EQUAL to 110 at 10 minutes f ollowing 1st dose of labetalol, give 2nd dose of IV labetalol 40 mg over 2 minutes ~ IF SBP GREATER than or EQUAL to 160 or DBP GREATER than or EQUAL to 110 at 10 minutes following 2nd dose of labetalol , give 3rd dose of IV labetalol 80 mg ov er 2 minutes ~ IF SPB GREATER than or EQUAL to 160 or DBP GREATER than or EQUAL to 110 at 10 minutes following 3rd dose of labetalol, progress to IV hydralazine ~ DO NOT give if history of asthma or con gestive heart failure. HOLD Labetalol IF maternal HR LESS than 60 AND notify provider for further orders ~ MAX recommended daily dose: 300 mg/24hours. PROTECT FROM LIGHT. lanolin cream Topical, EVERY 1 HOUR PRN, dry skin, sor eness, Starting on Fri09/21/21 at 1720, Apply to sore nipples after feedings lidocaine (LMX4) cream Topical, EVERY 1 HOUR PRN, pain, with VA D insertion, Starting on Fri09/21/21 at 1720, Apply at least 30 minutes prior to VAD insertion in divided doses as needed for size of site for insertion. MAX Dose : 2.5 g (?? of 5 g tube) Do NOT give if patient has a history of allergy to any local anesthetic or any seble product. Do NOT use both lidocaine intradermal/subcutaneous injection and the lidocaine cream on the same site. lidocaine 1 % 0.1-1 mL 0.1-1 mL, Other, EVERY 1 HOUR PRN, mild pain with VAD insertion, Starting on Fri09/21/21 at 1720, MAX dose 1 mL subcutaneous OR intradermal along the side of the vein in divided doses as needed for VAD insertion. Do NOT give if patient has a history of allergy to any local anesthetic or any seble product. Do NOT use both lidocaine intradermal/subcutaneous injection and the lidocaine cream on the same site. LORazepam (ATIVAN) injection 2 mg 2 mg, Intravenous, EVERY 3 MIN PRN, seiz ures, IF unresponsive to magnesium dosing., Administer over 1 Minutes, Starting on Fri09/21/21 at 1344, For 4 doses, This drug may cause significant respiratory d epression. Monitor respiratory status an d vital signs carefully for 1 hour after each dose. magnesium sulfate 2 g in water intermittent infusion 2 g, Intravenous, Administer over 5 Isabella racquel, Once PRN for SEIZURES, other, loading dose for ACTIVE MANAGEMENT OF SEIZURES, give If on magnesium sulfate infusion., Starting on Fri09/21/21 at 1344, For 1 dose, ~ Notify Provider ~ Monitor Blood pressure, pulse, respiratory rate & oxygen saturation now and every 5 minutes during magnesium sulfate loading dose. magnesium sulfate 4 g in 100 mL sterile water (premade) 4 g, Intravenous, Administer over 15-20 Minutes, Once PRN for SEIZURES, other, loading dose, for ACTIVE MANAGEMENT OF SEIZURES, give If NOT on magnesium sulfate infusion., Starting on Fri09/21/21 at 134 4, For 1 dose, ~ Notify Provider ~ Monit or Blood pressure, pulse, respiratory rate & oxygen saturation now and every 5 minutes during magnesium sulfate loading dose magnesium sulfate injection 10 g 10 g, Intramuscular, ONCE PRN, seizures IF unable to obtain IV access in an emergent situation., Starting on Fri09/21/21 at 1344, For 1 dose, Give 2.5 grams IM in four large-muscle sites Must obtain fro m emergency cart or from pharmacy. ~ Not jason Provider ~ Monitor Blood pressure, pulse, respiratory rate & oxygen saturation and every 5 minutes following magnesium sulfate injection dose until otherwise directed by provider meperidine (DEMEROL) injection 12.5 mg 12.5 mg, Intravenous, EVERY 15 MIN PRN, post anesthesia shivering, Starting on Fri09/21/21 at 1720, For 2 doses, PACU/Phase II methylergonovine (METHERGINE) injection 200 mcg 200 mcg, Intramuscular, EVERY 2 HOURS W[place] N, ONLY for uterine atony with significant bleeding POST-DELIVERY, Starting on Fri09/21/21 at 1720, Notify provider IF uterine atony and clarify with provider med ication preference. Administer only if d irected by provider. Contraindicated if Blood Pressure greater than 140/90, preeclampsia, or hypertension. metoclopramide (REGLAN) injection 10 mg(Linked Group 3) 10 mg, Intravenous, Administer over 2 Mi nutes, EVERY 6 HOURS PRN, nausea, vomiting, Starting on Fri09/21/21 at 1720, This is Step 1 of OB nausea and vomiting management. If nausea is not resolved in 30 minutes, go to Step 2 (Zofran). Avoid us e if patient has full bowel obstruction or perforation. Irritant. metoclopramide (REGLAN) tablet 10 mg(Linked Group 3) 10 mg, Oral, EVERY 6 HOURS PRN, nausea a nd vomiting, Starting on Fri09/21/21 at 1720, This is Step 1 of OB nausea and vomiting management. If nausea is not resolved in 30 minutes, go to Step 2 (Zofran) Avoid use if patient has full bowel obstruction or perforation. misoprostol (CYTOTEC) tablet 400 mcg(Linked Group 4) 400 mcg, Oral, GIVE ONCE PRN AND REPEAT ACCORDING TO INSTRUCTIONS, post- hemorrhage, Starting on Fri09/21/21 at 1720, Administer only if directed by provider. Max administrations: 4 doses misoprostol (CYTOTEC) tablet 800 mcg(Linked Group 4) 800 mcg, Rectal, GIVE ONCE PRN AND REPEA T ACCORDING TO INSTRUCTIONS, post- hemorrhage, Starting on Fri09/21/21 at 1720, Give rectally if unable to take oral without complications. Administer only if directed by provider. Max administrations: 4 doses. naloxone (NARCAN) injection 0.2 mg(Linked Group 5) 0.2 mg, Intravenous, EVERY 2 MIN PRN, op ioid reversal, Starting on Fri09/21/21 at 1738, Administer intravenous route when available and notify provider when administered. For unintended sedation or resp iratory depression if all of the below c riteria are met: ~ respiratory rate LESS than or EQUAL to 8. ~SaO2 less than 92% and or/end-tidal CO2 is greater than 50. ~ the patient is receiving an opioid, bean s unintended sedations assessed as RASS (-3), and is currently not on mechanical ventilation. RASS scale moderate (-3) is movement or eye opening to voice but no eye contact. Patient Monitoring Once the patient has demonstrated a response to the naloxone, continue to monitor respiratory rate, depth, oxygen saturation and end-tidal CO2 (if available) every 15 minutes x 2, then every 30 minutes x 2, the n every 1 hour x 1 after each naloxone d ose. Consider transfer to ICU if patient respiratory parameters have not improved after 4 naloxone doses. naloxone (NARCAN) injection 0.2 mg(Linked Group 5) 0.2 mg, Intramuscular, EVERY 2 MIN PRN, opioid reversal, Starting on Fri09/21/21 at 1738, Administer intramuscular if an intravenous route is not available and notify provider when administered. For uni ntended sedation or respiratory depressi on if all of the below criteria are met: ~ respiratory rate LESS than or EQUAL to 8. ~SaO2 less than 92% and or/end- tidal CO2 is greater than 50. ~ the patient is receiving an opioid, has unintended sed ations assessed as RASS (-3), and is currently not on mechanical ventilation. RASS scale moderate (-3) is movement or eye opening to voice but no eye contact. Pat ient Monitoring Once the patient has dem onstrated a response to the naloxone, continue to monitor respiratory rate, depth, oxygen saturation and end-tidal CO2 (if available) every 15 minutes x 2, then e very 30 minutes x 2, then every 1 hour x 1 after each naloxone dose. Consider transfer to ICU if patient respiratory parameters have not improved after 4 naloxone doses. naloxone (NARCAN) injection 0.4 mg(Linked Group 5) 0.4 mg, Intravenous, EVERY 2 MIN PRN, op ioid reversal, Starting on Fri09/21/21 at 1738, Administer intravenous route when available and notify provider when administered. For unintended sedation or resp iratory depression if all of the below c riteria are met: ~ respiratory rate LESS than or EQUAL to 8. ~ SaO2 less than 92% and or/end-tidal CO2 is greater than 50. ~ the patient is receiving an opioid, h as unintended sedation assessed as RASS (-4) or (-5) and patient is currently not on mechanical ventilation. RASS scale (-4) is deep sedation with no response to voice but movement or eye opening to phy sical stimulation. RASS scale (-5) is un arousable. Patient Monitoring Once the patient has demonstrated a response to the naloxone, continue to monitor respiratory rate, depth, oxygen saturation and end -tidal CO2 (if available) every 15 minut es x 2, then every 30 minutes x 2, then every 1 hour x 1 after each naloxone dose. Consider transfer to ICU if patient respiratory parameters have not improved after 4 naloxone doses. naloxone (NARCAN) injection 0.4 mg(Linked Group 5) 0.4 mg, Intramuscular, EVERY 2 MIN PRN, opioid reversal, Starting on Fri09/21/21 at 1738, Administer intramuscular if an intravenous route is not available and notify provider when administered. For uni ntended sedation or respiratory depressi on if all of the below criteria are met: ~ respiratory rate LESS than or EQUAL to 8. ~ SaO2 less than 92% and or/end- tidal CO2 is greater than 50. ~ the patient i s receiving an opioid, has unintended se dation assessed as RASS (-4) or (-5) and patient is currently not on mechanical ventilation. RASS scale (-4) is deep sedation with no response to voice but moveme nt or eye opening to physical stimulatio n. RASS scale (-5) is unarousable. Patient Monitoring Once the patient has demonstrated a response to the naloxone, continue to monitor respiratory rate, depth, o xygen saturation and end-tidal CO2 (if a vailable) every 15 minutes x 2, then every 30 minutes x 2, then every 1 hour x 1 after each naloxone dose. Consider transfer to ICU if patient respiratory parameters have not improved after 4 naloxone doses. No MMR Needed - Assessment: Patient does not need MMR vaccine CONTINUOUS PRN, Starting on Fri09/21/21 at 1720, Until Mon at 1529 No Tdap Needed - Assessment: Patient does not need Tdap vaccine CONTINUOUS PRN, Starting on Fri09/21/21 at 1720, Until Mon at 1529 ondansetron (ZOFRAN) injection 4 mg(Linked Group 6) 4 mg, Intravenous, EVERY 6 HOURS PRN, na usea, vomiting, Administer over 2-5 Minutes, Starting on Fri09/21/21 at 1720, This is Step 2 of OB nausea and vomiting management. Give if nausea not resolved 30 minutes after giving metoclopramide (REG DO). If nausea is not resolved in 15 minutes, go to Step 3 (Compazine). Irritant. ondansetron (ZOFRAN-ODT) ODT tab 4 mg(Linked Group 6) 4 mg, Oral, EVERY 6 HOURS PRN, nausea, v omiting, Starting on Fri09/21/21 at 1720, This is Step 2 of OB nausea and vomiting management. Give If nausea not resolved in 30 minutes after giving metocloprami de (REGLAN). If nausea is not resolved i n 15 minutes, go to Step 3 (Compazine). With dry hands, peel back foil backing and gently remove tablet. Do not push oral disintegrating tablet through foil backi ng. Administer immediately on tongue and oral disintegrating tablet dissolves in seconds, then swallow with saliva. Liquid not required. oxyCODONE (ROXICODONE) tablet 5-10 mg 21 52 (Given - Provider: Rufina Mcpherson RN) 1130 (Given - Provider: Deandra Burton RN) 5-10 mg, Oral, EVERY 4 HOURS PRN, other, pain control or improvement in physical function. Hold dose for analgesic side effects., Starting on Fri09/21/21 at 1720, Notify provider to assess for uncontrol led pain or analgesic side effects. Hold while on [employer] or with regular IV opioid dosing. Maximum total is 60 mg in 24 hours. oxytocin (PITOCIN) 30 units in 500 mL 0.9% NaCl infusion 340 mL/hr, Intravenous, CONTINUOUS PRN, for hemorrhage (PPH) UNTIL bleeding subsided., Starting on Fri09/21/21 at 1720, When bleeding subsides decrease rate to 100 mL/hr. Notify provider imme diately when infusion begun. Oxytocin is first line medication f or PPH. oxytocin (PITOCIN) injection 10 Units 10 Units, Intramuscular, ONCE PRN, for p ostpartum hemorrhage (PPH), IF no IV access is available., Starting on Fri09/21/21 at 1720, For 1 dose, Notify provider immediately when injection given. Oxytocin is first line medication for PPH. prochlorperazine (COMPAZINE) injection 10 mg(Linked Group 7) 10 mg, Intravenous, EVERY 6 HOURS PRN, n ausea, vomiting, Administer over 2 Minutes, Starting on Fri09/21/21 at 1720, This is Step 3 of OB nausea and vomiting management. Give if nausea not resolved 15 m inutes after giving ondansetron (ZOFRAN) . If nausea is not resolved in 30 minutes, notify provider. prochlorperazine (COMPAZINE) suppository 25 mg(Linked Group 7) 25 mg, Rectal, EVERY 12 HOURS PRN, nause a, vomiting, Starting on Fri09/21/21 at 1720, This is Step 3 of OB nausea and vomiting management. Give if nausea not resolved 15 minutes after giving ondansetron (ZOFRAN). If nausea is not resolved in 30 minutes, notify provi soo. prochlorperazine (COMPAZINE) tablet 10 mg(Linked Group 7) 10 mg, Oral, EVERY 6 HOURS PRN, nausea, vomiting, Starting on Fri09/21/21 at 1720, This is Step 3 of OB nausea and vomiting management. Give if nausea not resolved 15 minutes after giving ondansetron (Z OFRAN). If nausea is not resolved in 30 minutes, notify provider . simethicone (MYLICON) chewable tablet 80 mg 80 mg, Oral, 4 TIMES DAILY PRN, other, g as, Starting on Fri09/21/21 at 1720, Chew. sodium chloride (PF) 0.9% PF flush 3 mL 3 mL, Intracatheter, EVERY 1 MIN PRN, li ne flush, other, to ensure patency or to lock dormant line, Starting on Fri09/21/21 at 1720 sodium chloride 0.9% (bottle) irrigation PRN, Starting on Fri09/21/21 at 1540, Anesthesia Intra-op sodium phosphate (FLEET ENEMA) 1 enema 1 enema, Rectal, DAILY PRN, constipation , , Starting on Fri09/23/21 at 0000, Use if bisacodyl not effective. Start POD 2. Hold for loose stools unless being administered as part of a bowel prep regimen prior to a procedure. tranexamic acid 1 g in 100 mL NS IV bag (premix) 1 g, Intravenous, Administer over 10 Min utes, EVERY 30 MIN PRN, Post- hemorrhage (PPH), Starting on Fri09/21/21 at 1720, For 2 doses, Provider consultation REQUIRED and MUST be administered as gerardo n as the ONSET of bleeding AND within 3 hours of regardless of cause of the PPH (atony OR laceration). IF bleeding continues, a 2nd dose may be administered after 30 minutes. IF concern for DIC (D isseminated Intravascular Coagulation), obtain coagulation studies PRIOR to administration. Contraindications include: history of PE (Pulmonary Emboli), DVT (Deep Vein Thrombosis) and current Subarachno id hemorrhage and active DIC. Administer only if directed by pro vider. Linked Groups Order Group 1: senna-docusate (SENOKOT-S/PERICOLACE) 8.6-50 MG per tablet 1 tabletJump to med 1 tablet, Oral, 2 TIMES DAILY, First dos e on Fri09/21/21 at 2100
If no bowel movement in 24 hours, increase to 2 tablets PO. Hold for loose stools. Preferred agent f or constipation related to opioids.&nbsp ;Hold for loose stools.
Or senna-docusate (SENOKOT-S/PERICOLACE) 8.6-50 MG per tablet 2 tabletJump to med 2 tablet, Oral, 2 TIMES DAILY, First dos e on Fri09/21/21 at 2100
Hold for loose stools. Preferred agent for constipation related to opioids. Hold for loose stools.
Group 2: glucose gel 15-30 gJump to med 15-30 g, Oral, EVERY 15 MIN PRN, low blo od sugar, Starting on 09/22/21 at 0808
Give first dose for initial blood glucose less than 70 mg/dL per the dosing instructions below. If bl ood glucose at 15 minute rechecks is sti ll less than or equal to 100 mg/dL, continue to administer doses per blood glucose parameters every 15 minutes, as needed, until blood glucose level is above 100 mg/dL. Dosing Instructions:&n bsp;~If patient is conscious and able to swallow and NO enteral tube For initial BG 51-69mg/dL OR 15 minute recheck BG 51- 100 mg/dL - give 1 5 g For BG less than or equal to 50 mg/dL - give 30 g ~ If Enteral tube For initial BG 51-69mg/dL OR 15 minute recheck BG 51- 100 mg/dL - give apple juice 120 mL (4 oz or 15 g of CHO) via enteral tube For BG le ss than or equal to 50 mg/dL - Give apple juice 240 mL (8 oz or 30 g of CHO) via enteral tube ~Oral gel is preferable for conscious and able to swall ow patient. ~IF gel unavailable or patient refuses may provide apple juice per Enteral tube dosing instructions. Document juice on I and O flowsheet.
Or dextrose 50 % injection 25-50 mLJump to med 25-50 mL, Intravenous, EVERY 15 MIN PRN, low blood sugar, Administer over 1-5 Minutes, Starting on 09/22/21 at 0808
Use if have IV access, BG less than 70 mg/dL and meet dose criteria below: Dose if conscious and alert (or di sorientated) and NPO = 25 mL Dose if unconscious / not alert = 50 mL Give first dose for initial blood glucose less than 70&nb sp; mg/dL. If blood gluc ose at 15 minute recheck is less than or equal to 100 mg/dL continue to administer carbohydrate treatment every 15 minutes, as needed, based on blood glucose and assessment parameters until blood glucose level is above 100 mg/dL. Vesicant.
Or glucagon injection 1 mgJump to med 1 mg, Subcutaneous, EVERY 15 MIN PRN, lo w blood sugar, May repeat x 1 only, Starting on 09/22/21 at 0808
May give SQ or IM. ONLY use glucagon IF patient has NO IV access AND is UNABLE to swa llow AND blood glucose is LESS than or E QUAL to 50 mg/dL.
Group 3: metoclopramide (REGLAN) injection 10 mgJump to med 10 mg, Intravenous, Administer over 2 Mi nutes, EVERY 6 HOURS PRN, nausea, vomiting, Starting on Fri09/21/21 at 1720
This is Step 1 of OB nausea and vomiting management. If na usea is not resolved in 30 minutes, go t o Step 2 (Zofran). Avoid use if patient has full bowel obstruction or perforation. Irritant.
Or metoclopramide (REGLAN) tablet 10 mgJump to med 10 mg, Oral, EVERY 6 HOURS PRN, nausea a nd vomiting, Starting on Fri09/21/21 at 1720
This is Step 1 of OB nausea and vomiting management. If nausea is not resolved in 30 isabella racquel, go to Step 2 (Zofran) Avoid us e if patient has full bowel obstruction or perforation.
Group 4: misoprostol (CYTOTEC) tablet 400 mcgJump to med 400 mcg, Oral, GIVE ONCE PRN AND REPEAT ACCORDING TO INSTRUCTIONS, post- hemorrhage, Starting on Fri09/21/21 at 1720
Administer only if directed by provider. Max administrations: 4 doses
Or misoprostol (CYTOTEC) tablet 800 mcgJump to med 800 mcg, Rectal, GIVE ONCE PRN AND REPEA T ACCORDING TO INSTRUCTIONS, post- hemorrhage, Starting on Fri09/21/21 at 1720
Give rectally if unable to take oral without complications. Administ er only if directed by provider. Max adm inistrations: 4 doses.
Group 5: naloxone (NARCAN) injection 0.2 mgJump to med 0.2 mg, Intravenous, EVERY 2 MIN PRN, op ioid reversal, Starting on Fri09/21/21 at 1738
Administer intravenous route when available and notify provider when administered. For unintended sedation or respiratory depression if a ll of the below criteria are met: ~ respiratory rate LESS than or EQUAL to 8. ~SaO2 less than 92% and or/end- tidal CO2 is greater than 50.& nbsp;~ the patient is receiving an opioi d, has unintended sedations assessed as RASS (-3), and is currently not on mechanical ventilation. RASS scale moderate (-3) is movement or eye opening to voice but no eye contact.&nbs p; Patient Monitoring Once the patient has demonstrated a response to the naloxone, continue to monitor respiratory rate, depth, oxygen satu ration and end-tidal CO2 (if available) every 15 minutes x 2, then every 30 minutes x 2, then every 1 hour x 1 after each naloxone dose. Consider transfer to ICU if patient respirator y parameters have not improved after 4 n aloxone doses.
Or naloxone (NARCAN) injection 0.4 mgJump to med 0.4 mg, Intravenous, EVERY 2 MIN PRN, op ioid reversal, Starting on Fri09/21/21 at 1738
Administer intravenous route when available and notify provider when administered. For unintended sedation or respiratory depression if a ll of the below criteria are met: ~ respiratory rate LESS than or EQUAL to 8. ~ SaO2 less than 92% and or/end- tidal CO2 is greater than 50.& nbsp;~ the patient is receiving an opioi d, has unintended sedation assessed as RASS (-4) or (-5) and patient is currently not on mechanical ventilation. RASS scale (-4) is deep sedati on with no response to voice but movemen t or eye opening to physical stimulation. RASS scale (-5) is unarousable. Patient Monitoring On ce the patient has demonstrated a respon se to the naloxone, continue to monitor respiratory rate, depth, oxygen saturation and end-tidal CO2 (if available) every 15 minutes x 2, then every 30 minutes x 2, then every 1 hour x 1 after each nalo xone dose. Consider transfer to ICU if patient respiratory parameters have not improved after 4 naloxone doses.
Or naloxone (NARCAN) injection 0.2 mgJump to med 0.2 mg, Intramuscular, EVERY 2 MIN PRN, opioid reversal, Starting on Fri09/21/21 at 1738
Administer intramuscular if an intravenous route is not available and notify provider when administered. For unintended sedation or respira tory depression if all of the below criteria are met: ~ respiratory rate LESS than or EQUAL to 8. ~SaO2 less than 92% and or/end-tidal CO2 is greater than 50. ~ the patient i s receiving an opioid, has unintended sedations assessed as RASS (-3), and is currently not on mechanical ventilation. RASS scale moderate (-3) is movement or eye opening to voice but no eye contact. Patient Monitoring Once the patient has demonstrated a response to the naloxone, continue to monitor respiratory rate, depth, oxygen saturation and end-t idal CO2 (if available) every 15 minutes x 2, then every 30 minutes x 2, then every 1 hour x 1 after each naloxone dose. Consider transfer to [facility] if patient respiratory parameters hav e not improved after 4 naloxone doses.
Or naloxone (NARCAN) injection 0.4 mgJump to med 0.4 mg, Intramuscular, EVERY 2 MIN PRN, opioid reversal, Starting on Fri09/21/21 at 1738
Administer intramuscular if an intravenous route is not available and notify provider when administered. For unintended sedation or respira tory depression if all of the below criteria are met: ~ respiratory rate LESS than or EQUAL to 8. ~ SaO2 less than 92% and or/end-tidal CO2 is greater than 50. ~ the patient i s receiving an opioid, has unintended sedation assessed as RASS (-4) or (-5) and patient is currently not on mechanical ventilation. RASS s tonya (-4) is deep sedation with no respo nse to voice but movement or eye opening to physical stimulation. RASS scale (-5) is unarousable. Patien t Monitoring Once the patient has d emonstrated a response to the naloxone, continue to monitor respiratory rate, depth, oxygen saturation and end-tidal CO2 (if available) every 15 minutes x 2, then every 30 minutes x 2, then every 1 hour x 1 after each naloxone dose. Consider transfer to ICU if patient respiratory parameters have not improved after 4 naloxone doses.
Group 6: ondansetron (ZOFRAN-ODT) ODT tab 4 mgJump to med 4 mg, Oral, EVERY 6 HOURS PRN, nausea, v omiting, Starting on Fri09/21/21 at 1720
This is Step 2 of OB nausea and vomiting management. Give If nausea not resolved in 30 minute s after giving metoclopramide (REGLAN).& nbsp; If nausea is not resolved in 15 minutes, go to Step 3 (Compazine). With dry hands, peel back foil backing and gently remove tablet. Do not push oral disintegrating tablet thr ough foil backing. Administer immediately on tongue and oral disintegrating tablet dissolves in seconds, then swallow with saliva. Liquid not required.
Or ondansetron (ZOFRAN) injection 4 mgJump to med 4 mg, Intravenous, EVERY 6 HOURS PRN, na usea, vomiting, Administer over 2-5 Minutes, Starting on Fri09/21/21 at 1720
This is Step 2 of OB nausea and vomiting management. Give if nausea not resolved 30 minutes after giving metoclopramide (REGLAN). If nausea is not resolved in 15 minutes, go to Step 3 (Compazine). Irritant.
Group 7: prochlorperazine (COMPAZINE) injection 10 mgJump to med 10 mg, Intravenous, EVERY 6 HOURS PRN, n ausea, vomiting, Administer over 2 Minutes, Starting on Fri09/21/21 at 1720
This is Step 3 of OB nausea and vomiting management. Give if nausea not resol iva 15 minutes after giving ondansetron (ZOFRAN). If nausea is not resolved in 30 minutes, notify provider.
Or prochlorperazine (COMPAZINE) tablet 10 mgJump to med 10 mg, Oral, EVERY 6 HOURS PRN, nausea, vomiting, Starting on Fri09/21/21 at 1720
This is Step 3 of OB nausea and vomiting management. Give if nausea not resolved 15 minutes after giving ondans etron (ZOFRAN). If nausea is not resolve d in 30 minutes, notify provider.
Or prochlorperazine (COMPAZINE) suppository 25 mgJump to med 25 mg, Rectal, EVERY 12 HOURS PRN, nause a, vomiting, Starting on Fri09/21/21 at 1720
This is Step 3 of OB nausea and vomiting management. Give if nausea not resolved 15 minutes after giving ond ansetron (ZOFRAN). If nausea is not reso lved in 30 minutes, notify provider.
documented in this encounter Care Teams Journeyman Operator Assistant Relationship Specialty Start Date End Date MD Jeanette Endocrinology, 08/29/21 MD Hermelinda Diabetes, and [address] [facility] Met[facility] [address] [place], [place] [id number] Radha Reid Endocrinology 09/09/21 MD Hermelinda Provider [address] [facility] [address] [facility] [address] [place], [place] [address] Lurdes Echeverria MD Assigned OBGYN Provider 09/23/21 10/06/[id number] [facility] [address] [place], [place] [id number] documented as of this encounter
--- OUTSIDE RECORDS SUMMARY | 2022-07-12 20:21 | XMS_ITS | Encounter Summary ---
:1995 Author Organization [facility] Address [address] [place] [id number] Care Team Providers Name Role Phone Hermelinda Reid MD Unavailable [phone] Hermelinda Reid MD Unavailable [phone] Reason for Visit Auth/Cert Specialty Diagnoses / Procedures Referred By Contact Refer red To Contact social work administrator Diagnoses Pre-eclampsia Pre-eclampsia [facility] Labor And Delivery [address] [place], [place] [address] Phone: Fax: Referral ID Status Reason Start Date Expiration Date Visits Requ ested Visits Authorized [id number] 1 1 Encounter Details Date Type Department Care Team Description 09/21/2021 Surgery [facility] Lucie Son SECTION PeriOp Services MD Gianni [address] [place] [address] [place] [address] [phone] (Wo rk) Surgery Details Date/Time Status Location OR Service Patient Class Case Case Trauma Class Type Case? 09/21/21 2:35 Posted [facility] OR OR 07 Obstetrics Inpatient PM Panel 1 Procedure LRB Anes Op Region Wound Class Commen ts SECTION N/A None Abdomen II-Clean Contaminat ed Surgeon Surgeon Role Service Panel Lore Son MD Primary Obstetrics 1 documented in this encounter Social History Tobacco Use Types Packs/Day Years Used Date Smoking Tobacco: Never Smokeless Tobacco: Never Alcohol Use Standard Drinks/Week Comments Not Currently 0 (1 standard drink = 0.6 oz pure alcoho l) Sex Assigned at Date Recorded Female 09/11/2021 7:15 AM DOUGH SCALER AND MIXER COVID-19 Exposure Response Date Recorded In the last month, have you been in contact with No / Unsure 09/20/2021 11:06 AM DOUGH SCALER [employer] MIXER someone who was confirmed or suspected to have Coronavirus / COVID-19? documented as of this encounter Last Filed Vital Signs Vital Sign Reading Time Taken Comments Blood Pressure 156/95 09/21/2021 4:35 PM [employer] M[employer] Pulse 117 09/21/2021 4:09 PM DOUGH SCALER [employer] MIXER Temperature 37.1 ??C (98.8 ??F) 09/21/2021 4:09 PM DOUGH SCAL[employer] MIXER Respiratory Rate 22 09/21/2021 4:35 PM DOUGH SCALER AND MIXER Oxygen Saturation 100% 09/21/2021 4:35 PM DOUGH SCALER AND MIXER Inhaled Oxygen Concentration - - Weight 94.8 kg (209 lb) 09/21/2021 8:00 AM DOUGH SCALER AND MIXER Height 160 cm (5' 3) 09/20/2021 2:00 PM DOUGH SCALER AND MIXER Body Mass Index 35.97 09/20/2021 2:00 PM DOUGH SCALER AND MIXER documented in this encounter Discharge Summaries Lore Son MD - 09/24/2021 7:32 AM CST [facility] Discharge Summary Beatriz Aparicio Age: [age] year old Date of : 1995 Date of Admission: 09/20/2021 Date of Discharge:: 09/24/2021 Admitting Physician: Lore Son MD Discharge Physician: Lore Son MD Home clinic: [facility] Admission Diagnoses: Intrauterine at 34w4d Pre-eclampsia [...] No fever or significant wound drainage. well. Infant is stable. Passing flatus. No bowel movement [...] medications, labs and imaging. Lore Son MD [facility] H SCALER AND MIXER Lois Grant MD - 09/21/2021 4:38 PM [...] She was admitted under the care of [facility] PRODUCT MANAGEMENT SPECIALIST for preeclampsia evaluation and received betamethasone. She [...] Grant MD MT: [id number] Name: BEATRIZ APARICIO MRN: [id number] Account: [id number] : 1995 Service Date: 09/21/2021 Document: [id number] H SCALER [employer] MIXER documented in this encounter Discharge Instructions Discharge [...] questions or concerns once you return home. H SCALER [employer] MIXER AttachmentsThe following attachments cannot be sent through Care Everywhere. Gestational Hypertension (Luxembourger)documented in this encounter Medications at Time of [...] S/P documented as of this encounter Progress Deandra Cason RN - 09/24/2021 1:29 PM CST All discharge instructions were reviewed with couplet (pateint and spouse) by check writer salesperson and any/all questions answered. All discharge medications [...] insulin dose is currently being filled and check writer salesperson will bring down to patient. Patient was discharged with blue eclampsia wrist band and educational paperwork. Preeclampsia information also issued at time of discharge and reviewed s/sx. H SCALER AND MIXER Nahid Freedman, DO - 09/24/2021 11:38 AM CST [facility] Medicine Progress Note - Hospitalist Service Date of Admission: 09/20/2021 Assessment & Plan Beatriz Aparicio is a 26 year old?female who is currently at 34w4d??with PMH significant for uncontrolled DM2, h/o severe preeclampsia s/p c- section??at 35w6d at [facility] in 2017, previous COVID infection (08/24/21), obesity,??and??anxiety [...] Full Code Nahid Freedman DO Hospitalist Service [facility] Securely message with the [employer] Console (learn more here) Text page via [facility] Paging/Directory Clinically Significant Risk Factors Present on [...] = values in this interval not displayed. H SCALER AND MIXER Lore Son MD - 09/24/2021 7:31 AM CST PPD#3 [...] NT, ND. Fundus firm at U-2 Incision: [place] in place, appear clean, dry and intact. [...] of alicia in clinic Lore Son MD [facility] H SCALER AND MIXER Nahid Freedman DO - 09/23/2021 1:23 PM CST [facility] Medicine Progress Note - Hospitalist Service Date of Admission: 09/20/2021 Assessment & Plan Beatriz Aparicio is a 26 year old?female who is currently at 34w4d??with PMH significant for uncontrolled DM2, h/o severe preeclampsia s/p c- section??at 35w6d at [facility] in 2017, previous COVID infection (08/24/21), obesity,??and??anxiety [...] Full Code Nahid Freedman DO Hospitalist Service [facility] Securely message with the [employer] Console (learn more here) Text page via [employer] Paging/Directory Clinically Significant Risk Factors Present on [...] = values in this interval not displayed. H SCALER AND MIXER Марина Franco LSW - 09/23/2021 1:14 PM [...] ?? Psychosocial Assessment ?? Introduction to NICU Bank Advisor role and scope of practice ?? Discussed [...] baby's medical situation: appropriate understanding Family and parent/ interactions: Parents seem supportive of each other [...] was given contact information for WIC in [facility]. SW also provided [facility] Resource guide for families with young children. [...] to next visit. LEIGH De La Vega [facility] 09/23/2021 1:14 PM H SCALER AND MIXER Jian Dunn MD - 09/23/2021 10:04 AM CST [facility] Obstetrics Post-Op / Progress Note Assessment and [...] - Jian Dunn MD 09/23/2021 10:05 AM H SCALER AND MIXER Nahid Freedman DO - 09/22/2021 3:09 PM CST [facility] Medicine Progress Note - Hospitalist Service Date of Admission: 09/20/2021 Assessment & Plan Beatriz Aparicio is a 26 year old?female who is currently at 34w4d??with PMH significant for uncontrolled DM2, h/o severe preeclampsia s/p c- section??at 35w6d at [facility] in 2017, previous COVID infection (08/24/21), obesity,??and??anxiety [...] to primary service. Donovan Catheter: PRESENT, indication: /GI/LEAN MANUFACTURING ENGINEER Pelvic Procedure Central Lines: None Cardiac Monitoring: None Code Status: Full Code Nahid Freedman DO Hospitalist Service [facility] Securely message with the [employer] Console (learn more here) Text page via [employer] Paging/Directory Clinically Significant Risk Factors Present on [...] = values in this interval not displayed. H SCALER AND MIXER Christianne Cotto MD - 09/22/2021 12:40 PM [...] for specific discharge recommendations. Christianne Cotto MD H SCALER AND MIXER Lore Son MD - 09/21/2021 2:28 PM CST Was paged to evaluate patient stat for a presumed eclamptic seizure. I seen and evaluated patient. Rapid response was called prior to my arrival. I was updated on status of patient. Patient is awake, alert and oriented although slow to respond to questions. Informed by medical staff credentialing coordinator that patient had recurrence of severe headache [...] dose prior to deliver ;contacted M Dr. Trintiy Oconnell about clinical situation and she agrees [...] signed the consent form. Lore Son MD [facility] H SCALER AND MIXER Katja Daniels - 09/21/2021 2:23 PM CST [facility] Progress Note L&D 4 Bakery Technician visited pt and family per environmental lead page rapid response to room. Upon entrance Bakery Technician was instructed to take dad of pt's daughter out of the room. Bakery Technician learnedfrom dad that pt passed out after eating. Oriented to [facility]. After a few minutes, dad was advised to come inside to hold pt hand. Pt and partner welcomed prayer in the vincenzo of Gnosticism and Anabaptism. Partner indicated that they havebeen attending [facility] and the pt enjoys restoration. Pt was tired and needing rest. PLAN: Team has been given concrete tester pager #. SHS remains available. Flower Ling Bakery Technician C Application Developer Pager: [phone] H SCALER AND MIXER Nahid Freedman DO - 09/21/2021 2:20 PM CST [facility] Medicine Progress Note - Hospitalist Service Date of Admission: 09/20/2021 Assessment & Plan Beatriz Aparicio is a 26 year old female who is currently at 34w4d with PMH significantfor uncontrolled DM2, h/o severe preeclampsia s/p at 35w6d at [facility] in 2017, previous COVIDinfection (08/24/21), obesity, and [...] Full Code Nahid Freedman DO Hospitalist Service [facility] Securely message with the [employer] Console (learn more here) Text page via [employer] Paging/Directory Clinically Significant Risk Factors Present on [...] = values in this interval not displayed. H SCALER AND MIXER Lore Son MD - 09/21/2021 7:31 AM [...] 135, moderate variability, accels present, no decels Germania: q2-7 minutes A/P: 26 year old 34w5d [...] of delivery -- hx of prior at [facility] in 2016 at 35w6d; operative report not [...] preclampsia without severe features Lore Son MD [facility] H SCALER AND MIXER Jian Dunn MD - 09/21/2021 12:32 AM CST Called to assess patient due to feeling some pelvic pressure following using BR. Germania with Q2-5 min mild ctx felt by patient. Cervix FT per RN check. Will begin IV and give 250cc IVF bolus and treat ctx with nifedipine 20mg Q6 hrs Mannie Dunn MD H SCALER AND MIXER Jian Dunn MD - 09/20/2021 4:39 PM CST Discussed plan of care with Dr. Stafford of [facility]. Agree with admission and course of steroids with Hospitalist assistance in glucose management. Ongoing assessment of PIH symptoms/labs. Timing of delivery to be determined by evolution of PIH symptoms with development of severe featureswarranting delivery and degree of DM control. Dr. Dunn H SCALER AND MIXER documented in this encounter H&P Notes Jian Dunn MD - 09/20/2021 2:11 PM CST [facility] Antepartum History and Physical Beatriz Aparicio Age: [age] year old Date of : 1995 Date of Admission: 09/20/2021 Primary care provider: Valeria Carias Chief Complaint: Beatriz Aparicio is a 26 year old female who is female at 34w4d with poorly controlled Type 2 DM and a Hx of pre eclampsia w/ severe features resulting in delivery by C/S at 35w6d at [facility] 5 yrs ago now being admitted for Pre-eclampsia evaluation. She has been receiving care at [facility] with a plan to transfer care to [facility] OB due to complexity of and likelihood of PTD. She reports an elevated BP of 141/81 at [facility] on 09/06 which was followed up with normal PIH labs. She was scheduled for a NOB appt today with Dr. Son. She has been having testing through [facility] and Endocrinology management through [facility]. She called in yesterday with complaints of increased swelling in the lower extremities. She also endorsed a BEAN and stated her blood sugars have been better recently - no longer in the 300s. She was advised to come to L&D at [facility] for evaluation. She presented today. Primary complaint [...] Continuous monitoring for now. Mannie Dunn MD H SCALER AND MIXER documented in this encounter Consult Notes Erasmo Antonio MD - 09/21/2021 3:23 PM CST Images from the original note were not included. Neurology Consult Note [facility] [September 21, 2021] Admission Date: 09/20/2021 Hospital Day: 2 Code Status: Full Code Patient: Beatriz Aparicio : 1995 CC: No chief complaint on file. Consult Request: Referring Provider: Lore Son MD Indication for Consultation: Neurology IP Consult: General (non-stroke/non-ICU); Patient to be seen:Routine - within 24 hours; Preecclampsia, possible seizure activity; Photolithographer may enter orders: Yes; Requesting provider? Hospitalist (if different from attending physician) [CON9] (Order [id number]) Primary Care Provider: Valeria Carias MD HPI: I came to Ms. Aparicio's room for a neurological consultation at the request of Dr. Fernandez. She had been taken to the OR for emergency . I spoke with the feeder worker power unit operator to document my attempt to see the patient. She is now S/P , and I asked if the neurological consultation was still required. I was told that the consult request has been cancelled. Please call if there are further questions. Erasmo Antonio M.D., Ph.D. [facility] H SCALER AND MIXER Evelina Long PA-C - 09/20/2021 2:17 PM CSTAssociated Order(s): HOSPITALIST IP CONSULT [facility] Consult Note - Hospitalist Service Date of Admission: 09/20/2021 Consult Requested by: Dr. Dunn Reason for Consult: Diabetes management while on betamethasone Assessment & Plan Beatriz Aparicio is a 26 year old female who is currently at 34w4d with PMH significantfor uncontrolled DM2, h/o severe preeclampsia s/p at 35w6d at [facility] in 2017, previous COVIDinfection (08/24/21), obesity, and anxiety who presents for pre-eclampsia evaluation. #Poorly controlled DM2 in : prior to patient was taking Metformin 500 mg BID for 2 years. Since being the patient was switch to NPH and Regular insulin for management. [facility] during her current but most recently seen [...] - betamethasone per OB team - continue LUNCHROOM SUPERVISOR ASA - diet, DVT prophylaxis, and monitoring per OB team #GERD: resume LUNCHROOM SUPERVISOR Pepcid The patient's care was discussed with the Attending Physician, Dr. Manuel, Bedside Nurse and Dr. Rivera OB team. Evelina Long PA-C [facility] Securely message with the [employer] Console (learn more here) Text page via [employer] Paging/Directory Clinically Significant Risk Factors Present on [...] recent exposure or clinical presentation suggests COVID-19. [facility] are certified under the Clinical Laboratory Improvement Amendments of 1988 (CLIA-88) as qualified to perform moderate and/or high complexity laboratory testing. Wet preparation Status: Abnormal Specimen: Vagina; Swab Result Value Ref Range Trichomonas Absent Absent Yeast Absent Absent Clue Cells Absent Absent WBCs/high power field 1+ (A) None H SCALER AND MIXER Associated attestation - Gurjit Manuel MD - 09/29/2021 4:18 PM DOUGH SCALER AND MIXER Physician Attestation I, Gurjit Manuel, have reviewed [...] 7 units of Novolog per carb count. Physician Assistant Certified spoke with patient's who helps manage patient's insulin and is aware of what is being worked on; has now sent over prescription forpatient to have OP pharmacy fill this dose (pen), since patient's own personal insulin pens are in [place], [place] and they are still in NICU visiting infant. is aware that this dose will be brought down for patient to self administer the 15 units. Physician Assistant Certified then spoke with OP pharmacy, who is currently working on filling this and working with insurance. H SCALER AND MIXER Plan of Care - Deandra Taylor RN - 09/24/2021 1:29 PM CST OP pharmacy will be sending up the needed insulin dose, and check writer salesperson will bring down to NICU where (discharged) patient remains. H SCALER AND MIXER Plan of Care - Deandra Taylor RN - 09/24/2021 1:29 PM CST Physician Assistant Certified went down to NICU. Patient signed for [...] Beatriz may receive her evening supper dosages. H SCALER AND MIXER Result Encounter Note - Valeria Carias MD - 09/24/2021 1:29 PM CST MFM results and recommendations reviewed. Valeria Carias MD H SCALER AND MIXER Plan of Care - Deandra Taylor RN - 09/24/2021 11:58 AM CST Both MD and Hospitalist have rounded and gave OK for discharge to home later today. Discharge meds are being dispensed and will be issued as well as how/when to take. MD removed lower abdominal dressing over incision line. [place] are present and patient aware to follow [...] removed; patient tearful with this prior to check writer salesperson even beginning to remove. No sliding scale insulin neededat this time. Continues to pump and give EBM to NICU for infant. Breast pump issued. Patient was able to get up on own, walk to bathroom and is now on sitting stool in shower. Pain is being managed with Tylenol and Ibuprofen, and PRN Oxycodone. Will discharge to home this afternoon. Spouse is supportive and at bedside. H SCALER AND MIXER Plan of Care - Deandra Taylor RN [...] NICU and will be updated upon return. H SCALER AND MIXER Plan of Care - Argentina Barlow RN [...] of pain. Will continue to monitor pt. H SCALER AND MIXER Plan of Care - Rufina Mcpherson RN - 09/23/2021 5:34 PM CST Pt up ad dusty and ambulating . Pt is breastpumping. certificate and depression scale done . ROP given with instructions . Insulin given . See mar. Blood sugar pre meal (Lunch) at 1700 is 183 . H SCALER AND MIXER Note - Emperatriz Benitez RN - 09/23/2021 2:55 PM CST Physician Assistant Certified checking in with patient to do education on pumping. Reviewed frequency, settings and cleaning and care of pump. Patient wanting pump turned to highest level as she says she doesn't tend to havefeeling in nipples, after discussing nipple tenderness. Good volumes pumped to bring down to infant.Beatriz's states infant sleepy under phototherapy. Offered assistance if gets to breast today. Called down to help with a feed. Breasts large nipple pointing downwards. Football hold may be easier for latch. Small shield applied and breast milk expressed into shield. Baby would open latch no seal. Couple of non nutritive sucks noted. Encouraged patient to pump. H SCALER AND MIXER Plan of Care - Caridad Stout RN [...] over with patient. Plan to discharge tomorrow. H SCALER AND MIXER Provider Notification - Any Andrade RN - 09/23/2021 11:28 AM CST 09/23/21 1128 Provider Notification Provider Name/Title Dr. Freedman Method of Notification Phone Notification Reason Lab Results Called MD for clarification on whether to give NPH with blood sugar of 107. Patient eating currently. Orders received to give NPH 15 units as ordered. H SCALER AND MIXER Note - Emperatriz Benitez RN - 09/23/2021 11:06 AM CST in to see patient yesterday 09/22/2021 baby in NICU. Discussed pumping every 2-3 hours to help bring in milk supply. Encouraged using hands on pumping and hand expressing. Knows to do STS wheninfant stable. to follow if patent would like help with latching when ready. H SCALER AND MIXER Plan of Care - Judie Ochoa RN - 09/23/2021 4:54 AM CST VSS. Denies s/s of PreE. Pain controlled, see MAR. Blood sugars still elevated, see MAR for insulin given. Dressing: c/d/I. Fundal checks and bleeding WNL. Voiding without difficulty; frequent voiding encouraged. +BS. Passing flatus. BM yesterday. Tolerating regular diet. Pumping occasionally. Went tosee in NICU x1. NICU Ipad at bedside. H SCALER AND MIXER Plan of Care - Any Ruiz RN [...] with meals, pt has not eaten dinner. H SCALER AND MIXER Plan of Care - Allison Núñez RN [...] needed. Will continue with plan of care. H SCALER AND MIXER Plan of Care - Hermila Wang RN - 09/21/2021 7:39 PM CST Data: Beatriz Aparicio [facility] via [facility] at 1914. Baby in NICU. [...] Response: Patient tolerated transfer and is stable. H SCALER AND MIXER L&D Delivery Note - Lore Son MD - 09/21/2021 5:35 PM DOUGH SCALER AND MIXER Delivery Summary Beatriz Aparicio Age: [age] year old Date of : 1995 Sonia, Male-Beatriz [[id number]] Labor Length 3rd Stage (hrs): 0 (min): 2 Delivery/Placenta Date and Time Delivery Date: 09/21/21 Delivery Time: 3:03 PM Placenta Date/Time: 09/21/2021 3:05 PM Delivering clinician: Lore Son MD Other personnel present at delivery: Provider Role Savana Saavedra RN Blouin, Helen, RN Abdullahi, Isahaq Mohamed, MD Cash Control Specialist Apgars Living status: Living 1 Minute 5 Minute 10 Minute 15 Minute 20 Minute Skin color: 1 1 Heart rate: 2 2 Reflex irritability: 2 2 Muscle tone: 2 2 Respiratory effort: 1 2 Total: 8 9 Apgars assigned by: SAMRA TRIANA APRN, CNP Cord Vessels: 3 Vessels Cord Complications: None [place] Resuscitation Methods: Oxygen, NCPAP, Bag Mask, Oximetry, Temp Skin Control, Temp Skin Probe, John Paul Puff Care at Delivery: NICU team called on behalf of Dr Son for a C- section under general anesthesia due to maternal pre-eclampsia and recent maternal seizure as well as poorly controlled DM2, is premature at 34 5/7 weeks. cried immediately after his and received 1 minute of delayed cord clamping, then brought to the radiant warmer for further drying and stimulation. Infant with fair aeration, CPAP 6 cms 30% applied. became apneic when not crying and positive [...] Category 1 Delivery (Maternal) (Provider to Complete) ([id number]) Blood Loss Mother: Beatriz Aparicio #[id number] Start of Mother's Information Delivery Blood Loss 09/21/21 1456 - 09/21/21 1735 Total Surgical QBL Blood Loss (mL) Hospital Encounter 1227 mL Total 1227 mL End of Mother's Information Mother: Beatriz Aparicio #[id number] Delivery - Provider to Complete ([id number]) Delivering clinician: Lore Son MD Delivery Type (Choose the 1 that will go to the History): , Low Transverse Priority: STAT Specifics: Repeat Indications for Repeat: Other Other Indications: eclampsia Other personnel: Provider Role Savana Saavedra RN Blouin, Helen, RN Abdullahi, Isahaq Mohamed, MD Cash Control Specialist Placenta Date/Time: 09/21/2021 3:05 PM Removal: Spontaneous Disposition: Pathology Anesthesia Method: General Presentation and Position Presentation: Vertex Occiput Anterior Lore Son MD H SCALER AND MIXER Provider Notification - Xochitl Mishra RN - 09/21/2021 5:34 PM DOUGH SCALER AND MIXER 09/21/21 6527 Provider Notification Provider Name/Title Dr Rhoades Method of Notification Phone Request Evaluate-Remote Notification Reason Lab Results Updated MD that the hospitalist has been following pt for her type 2 DM, pt had stat , justarrived to L&D from PACU, on clear liquid diet, and BG level of 239. gave TORB to check BG levels every 4hrs and to use Novolog sliding scale orders. H SCALER AND MIXER Op Note - Lore Son MD - 09/21/2021 4:34 PM CST [facility] Full Operative Note Patient Name:Beatriz Aparicio Date of : 1995 Surgery Date: 09/21/2021 Surgeon: Lore Son MD Pre-operative Diagnosis: 1) Intrauterine at 34w5d 2) Eclampsia 3) Poorly controlled Type 2Diabetes Mellitus 4) History of previous section Post-operative Diagnosis: Viable male infant, delivered Procedure: Stat activated repeat low transverse section via Pfannenstiel skin incision withtwo layer uterine closure Anesthesia: General endotacheal FRA Score: 2 EBL: 1227 mL IV fluids: Refer to anesthesia records Urine Output: Refer to anesthesia records (yellow clear colored at the end of the procedure) Complications: None Specimen: Placenta Drains: Donovan catheter Findings: Viable male delivered in cephalic presentation [...] delivered along with the rest of the infant through the hysterotomy without difficulty. The infant [...] were correct x 2. Lore Son MD [facility] H SCALER AND MIXER Plan of Care - Maria De Jesus [...] Response team, serial BP's started, 1335 OT 174,WIRELESS SALES REPRESENTATIVE present EKG requested, patient legs shaking, serial [...] in bed being wheeled to OR 7 [employer] Utilization Review - Gilbert Madrigal MD - [...] h/o severe preeclampsia s/p at 35w6d at [place] in 2017, previous COVID infection (08/24/21), obesity, [...] section 70.4. Sincerely, GILBERT MADRIGAL MD System Manager EnrollmentCaravan Park And Camping Ground Manager [facility]. [employer] Plan of Care - Maria De Jesus Florian RN - 09/21/2021 1:13 PM CST here with [employer] food, Blood sugar rechecked, headache better [employer]ER Plan of Care - Maria De Jesus [...] Significant other to arrive with some food, [employer] Plan of Care - Maria De Jesus Florian RN - 09/21/2021 8:40 AM CST Patient continues to complain of pain in both legs with numbness and tingling and aching from swelling, does not like sequentials on lower calves,US ordered to rule out DVT patient up and into wheelchair down to US [employer] Provider Notification - Radha Lou RN - [...] for pain. Per MD continue to monitor. [employer] Provider Notification - Radha Lou RN - [...] RN for VS. Orders received for tylenol. [employer]ER Provider Notification - Radha Lou RN - [...] external monitors, and keep IV at TKO. [employer]ER Provider Notification - Radha Lou RN - 09/21/2021 12:26 AM [employer]IXER 09/21/21 0026 Provider Notification Provider Name/Title Dr Dunn Method of Notification At Bedside MD at bedside. Updated on cx now 2-3 minutes apart palpating mild, recent BP 133/85, 2hr post meal BG 170. Pt c/o pins and needles in legs similar to admission. MD will put in order for nifedipine q 6. [employer]ER Provider Notification - Karolyn Samayoa RN - 09/21/2021 12:25 AM [employer]IXER 09/21/21 0025 Provider Notification Provider Name/Title Dr. Dunn Method of Notification In Department Primary nurse requested to page . MD in department. Informed that patient is a fingertip and uncomfortable with her contractions. Primary nurse to begin IV fluids. [employer] Provider Notification - Radha Lou RN - 09/21/2021 12:11 AM [employer]ER 09/21/21 0011 Provider Notification Provider Name/Title Dr Dunn Method of Notification Phone Updated MD of pt c/o vaginal pressure. toco applied and showing cx q 2-5 minutes palpating very mild. tracing moderate with accelerations. Pt does not have an IV. Orders received to start IV [id number] bolus, check SVE and if anything other than closed cervix update md. [employer] Provider Notification - Velia Mares RN - 09/20/2021 6:14 PM CST 09/20/214 Provider Notification Provider Name/Title Pharmacy Method of Notification Phone Called pharmacy again seeking verification of pts evening suppertime insulin. Per pharmacist this cannot be verified until confirmation is received from hospitalist. Verification pending clarification. [employer]ER Provider Notification - Velia Mares RN - [...] verify/send prior to pt eating evening meal. [employer] Provider Notification - Velia Mares RN - 09/20/2021 5:30 PM CST 09/20/21 [id number] Provider Notification Provider Name/Title Dr. Dunn Method of Notification In Department Request Evaluate - Remote Spoke with MD in department about challenges of monitoring today. VORB per MD for reactive NSTQshift unless change in status r/t pre-eclampsia. [employer] Pharmacy-Admission Medication History - Dexter Tatum [facility] - 09/20/2021 4:56 PM D[employer] MIXER Admission medication history interview status for this patient is complete. See [facility] admission navigator for allergy information, prior to admission medications and immunization status. 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 [employer]ER Plan of Care - Velia Mares RN [...] at this time. Admitted to room 408. [employer] Provider Notification - Velia Mares RN - 09/20/2021 11:30 AM [employer] MIXER 09/20/21 1130 Provider Notification Provider Name/Title Dr. Dunn Method of Notification At Bedside Request Evaluate in Person Dr. Dunn at bedside to evaluate pt and discuss POC. Per discussion, will continue serial Bps Q15 mins, draw pre-e labs, send wet prep d/t vaginal sx.. Will evaluate lab results then determine further POC. Pt verbalized understanding and agreement. [employer] M[employer]ER Plan of Care - Velia Mares RN [...] Jian Dunn with updateand for further orders. [employer] Plan of Care - Maria De Jesus Florian RN - 09/20/2021 11:11 AM CST Data: Patient assessed in the [facility] evaluation Action: EFM/EUM on , serial BP's Response: Orders per Jian Dunn. Patient verbalized understanding of education and verbalized agreement with plan. [employer]ER documented in this encounter Plan of Treatment Upcoming Encounters Date Type Specialty Care Team Description 07/26/2022 Appointment Radiology. Dion Ramirez MD [address] [facility] [address] [facility] [address] [place] [address] Liliana Wright MD [address] [facility] [address] [place] [address] 07/26/2022 Office Visit Maternal and Dion Ramirez MD [address] [place] [address] Medicine Liliana Wright MD [address] [facility] [address] [place], [place] [id number] 08/13/2022 Appointment Cardiology Dion Ramirez MD [address] [place], [place] [id number] (Wo rk) documented as of this encounter Procedures Procedure Name Priority Date/Time Associated Comments Diagnosis GLUCOSE BY METER Routine 09/24/2021 10:51 Results for this AM [employer] procedure are i n the results section. GLUCOSE BY METER Routine 09/24/2021 2:02 Results for this AM [employer] procedure are i n the results section. GLUCOSE BY METER Routine 09/23/2021 9:46 Results for this PM [employer] procedure are i n the results section. GLUCOSE BY METER Routine 09/23/2021 4:49 Results for this PM [employer] procedure are i n the results section. GLUCOSE BY METER Routine 09/23/2021 11:05 Results for this AM [employer] procedure are i n the results section. GLUCOSE BY METER Routine 09/23/2021 2:24 Results for this AM [employer] procedure are i n the results section. GLUCOSE BY METER Routine 09/22/2021 8:42 Results for this PM [employer] procedure are i n the results section. GLUCOSE BY METER Routine 09/22/2021 2:42 Results for this PM [employer] procedure are i n the results section. COMPREHENSIVE STAT 09/22/2021 10:42 Results fo r this METABOLIC PANEL AM [employer] procedure ar e in the results section. GLUCOSE BY METER Routine 09/22/2021 9:15 Results for this AM [employer] procedure are i n the results section. HEMOGLOBIN Routine 09/22/2021 7:18 Results for this AM [employer] procedure are i n the results section. CBC WITH PLATELETS STAT Add-on 09/22/2021 7:18 Result s for this AM [employer] procedure are i n the results section. GLUCOSE BY METER Routine 09/22/2021 5:54 Results for this AM [employer] procedure are i n the results section. GLUCOSE BY METER Routine 09/22/2021 1:08 Results for this AM [employer] procedure are i n the results section. GLUCOSE BY METER Routine 09/21/2021 9:34 Results for this PM [employer] procedure are i n the results section. CT HEAD W/O CONTRAST Routine 09/21/2021 6:33 Resu lts for this PM [employer] procedure are i n the results section. GLUCOSE BY METER Routine 09/21/2021 5:19 Results for this PM [employer] procedure are i n the results section. PLACENTA PATH ORDER Routine 09/21/2021 3:35 Resul ts for this AND INDICATIONS PM [employer] procedure ar e in the results section. SECTION 09/21/2021 2:19 34 weeks gestation PM [employer] MIXER of MAGNESIUM STAT 09/21/2021 2:07 Results for this PM [employer] procedure are i n the results section. CREATININE STAT 09/21/2021 2:05 Results for this PM [employer] procedure are i n the results section. AST STAT 09/21/2021 2:05 Results for this PM [employer] procedure are i n the results section. ALT STAT 09/21/2021 2:05 Results for this PM [employer] procedure are i n the results section. CBC WITH PLATELETS STAT 09/21/2021 2:05 Result s for this PM [employer]ER procedure are i n the results section. EKG 12-LEAD, TRACING STAT 09/21/2021 1:45 Resu lts for this ONLY PM [employer] procedure are i n the results section. GLUCOSE BY METER Routine 09/21/2021 1:36 Results for this PM [employer] procedure are i n the results section. GLUCOSE BY METER Routine 09/21/2021 1:00 Results for this PM [employer] procedure are i n the results section. GLUCOSE BY METER Routine 09/21/2021 11:47 Results for this AM [employer] procedure are i n the results section. GLUCOSE BY METER Routine 09/21/2021 10:30 Results for this AM [employer] procedure are i n the results section. COMPREHENSIVE STAT 09/21/2021 10:27 Results fo r this METABOLIC PANEL AM [employer] procedure ar e in the results section. CBC WITH PLATELETS STAT 09/21/2021 10:27 Resul ts for this AM [employer] procedure are i n the results section. US LOWER EXTREMITY STAT 09/21/2021 9:24 Result s for this VENOUS DUPLEX AM [employer] procedure are in BILATERAL the results section. GLUCOSE BY METER Routine 09/21/2021 7:30 Results for this AM [employer] procedure are i n the results section. TYPE AND SCREEN, Routine 09/21/2021 6:32 Results for this ADULT AM [employer] procedure are i n the results section. ABO/RH TYPE AND Routine 09/21/2021 6:32 Results f or this SCREEN AM [employer] procedure are i n the results section. COMPREHENSIVE Routine 09/21/2021 6:31 Results for this METABOLIC PANEL AM [employer] procedure ar e in the results section. CBC WITH PLATELETS Routine 09/21/2021 6:31 Result s for this AM [employer] procedure are i n the results section. GLUCOSE BY METER Routine 09/21/2021 2:07 Results for this AM [employer] procedure are i n the results section. GLUCOSE BY METER Routine 09/21/2021 12:09 Results for this AM [employer] procedure are i n the results section. GLUCOSE BY METER Routine 09/20/2021 9:31 Results for this PM [employer] procedure are i n the results section. GLUCOSE BY METER Routine 09/20/2021 6:59 Results for this PM [employer] procedure are i n the results section. GLUCOSE BY METER Routine 09/20/2021 5:45 Results for this PM [employer] procedure are i n the results section. COVID-19 VIRUS STAT 09/20/2021 2:42 Results fo r this (CORONAVIRUS) BY PCR PM [employer] procedu re are in the results section. GROUP B STREP PCR Routine 09/20/2021 2:42 Results for this PM [employer] procedure are i n the results section. MFM BPP SINGLE Routine 09/20/2021 2:01 Results fo r this PM [employer] procedure are i n the results section. WET PREPARATION Routine 09/20/2021 11:39 Results for this AM [employer] procedure are i n the results section. URIC ACID STAT 09/20/2021 11:36 Results for this AM [employer] procedure are i n the results section. PROTEIN RANDOM URINE STAT 09/20/2021 11:36 Res ults for this AM [employer] procedure are i n the results section. COMPREHENSIVE STAT 09/20/2021 11:36 Results fo r this METABOLIC PANEL AM [employer] procedure ar e in the results section. CBC WITH PLATELETS STAT 09/20/2021 11:36 Resul ts for this AM [employer] procedure are i n the results section. GLUCOSE BY METER Routine 09/20/2021 11:17 Results for this AM [employer] procedure are i n the results section. documented in this encounter Results (ABNORMAL) Glucose by meter (09/24/2021 10:51 AM D[employer] MIXER) P athologist Signature GLUCOSE BY 107 (H) 70 - 99 09/24/2021 [facility] METER POCT mg/dL 10:58 AM [employer] M[employer]ER POC Specimen (Source) Anatomical Collection Method Collection Time Re ceived Time Location / / Volume Laterality Blood, Capillary BLOOD SPECIMEN / 09/24/2021 10:51 Unknown AM [employer] 10:58 AM [employer]ER [employer] MIXER Lore CHENG - BEAKER POCT Performing Organization Address City/[facility]/ZIP Code [place] [address] Care Lab [address] Lab (1st floor, no room number) (ABNORMAL) Glucose by meter (09/24/2021 2:02 AM D[employer]ER [employer] MIXER) P athologist Signature GLUCOSE BY 178 (H) 70 - 99 09/24/2021 [facility] METER POCT mg/dL 2:09 AM D[employer] MIXER POC Specimen (Source) Anatomical Collection Method Collection Time Re ceived Time Location / / Volume Laterality Blood, Capillary BLOOD SPECIMEN / 09/24/2021 2:02 09/11 2:09 Unknown AM [employer] MIXER AM [employer] MIXER Lore CHENG - BENAT POCT Performing Organization Address City/State/ZIP Code [place] [address] Care Lab [address] Lab (1st floor, no room number) (ABNORMAL) Glucose by meter (09/23/2021 9:46 PM D[employer]ER [employer] MIXER) P athologist Signature GLUCOSE BY 167 (H) 70 - 99 09/23/2021 [facility] METER POCT mg/dL 9:53 PM D[employer] MIXER POC Specimen (Source) Anatomical Collection Method Collection Time Re ceived Time Location / / Volume Laterality Blood, Capillary BLOOD SPECIMEN / 09/23/2021 9:46 09/11 9:53 Unknown PM [employer] MIXER PM [employer] MIXER Lore Son MD LAB - BEAKER POCT Performing Organization Address City/[facility]/ZIP Code [place] [address] Care Lab [address] Lab (1st floor, no room number) (ABNORMAL) Glucose by meter (09/23/2021 4:49 PM D[employer]ER [employer] MIXER) P athologist Signature GLUCOSE BY 183 (H) 70 - 99 09/23/2021 [facility] METER POCT mg/dL 4:58 PM D[employer] MIXER POC Comment: /RN Notified Specimen (Source) Anatomical Collection Method Collection Time Re ceived Time Location / / Volume Laterality Blood, Capillary BLOOD SPECIMEN / 09/23/2021 4:49 09/11 4:58 Unknown PM [employer]ER AND MIXER PM [employer]ER AND MIXER Lore CHENG - JOLENE POCT Performing Organization Address City/[facility]/ZIP Code [place] [address] Care Lab [address] Lab (1st floor, no room number) (ABNORMAL) Glucose by meter (09/23/2021 11:05 AM D[employer]ER [employer] MIXER) P athologist Signature GLUCOSE BY 107 (H) 70 - 99 09/23/2021 [facility] METER POCT mg/dL 11:22 AM D[employer]ER [employer] MIXER POC Specimen (Source) Anatomical Collection Method Collection Time Re ceived Time Location / / Volume Laterality Blood, Capillary BLOOD SPECIMEN / 09/23/2021 11:05 Unknown AM [employer] MIXER 11:22 AM D[employer] MIXER Lore CHENG - BEAKER POCT Performing Organization Address City/State/ZIP Code [place] [address] Care Lab [address] Lab (1st floor, no room number) (ABNORMAL) Glucose by meter (09/23/2021 2:24 AM D[employer]ER [employer] MIXER) P athologist Signature GLUCOSE BY 198 (H) 70 - 99 09/23/2021 [facility] METER POCT mg/dL 2:31 AM D[employer] MIXER POC Specimen (Source) Anatomical Collection Method Collection Time Re ceived Time Location / / Volume Laterality Blood, Capillary BLOOD SPECIMEN / 09/23/2021 2:24 0210/2021 2:31 Unknown AM D[employer]ER AND MIXER AM [employer] MIXER Lore Son MD LAB - BEAKER POCT Performing Organization Address City/State/ZIP Code [place] [address] Care Lab [address] Lab (1st floor, no room number) (ABNORMAL) Glucose by meter (09/22/2021 8:42 PM DOUGH SC[employer]ER AND MIXER) athologist Signature GLUCOSE BY 220 (H) 70 - 99 09/22/2021 [facility] METER POCT mg/dL 8:50 PM D[employer] SC[employer]ER AND MIXER POC Specimen (Source) Anatomical Collection Method Collection Time Re ceived Time Location / / Volume Laterality Blood, Capillary BLOOD SPECIMEN / 09/22/2021 8:42 09/11 8:50 Unknown PM [employer]ER AND MIXER PM [employer] MIXER Lore Son MD LAB - BEAKER POCT Performing Organization Address City/State/ZIP Code [place] [address] Care Lab [address] Lab (1st floor, no room number) (ABNORMAL) Glucose by meter (09/22/2021 2:42 PM D[employer] MIXER) P athologist Signature GLUCOSE BY 220 (H) 70 - 99 09/22/2021 [facility] METER POCT mg/dL 2:50 PM D[employer] MIXER POC Comment: Dr/RN Notified Specimen (Source) Anatomical Collection Method Collection Time Re ceived Time Location / / Volume Laterality Blood, Capillary BLOOD SPECIMEN / 09/22/2021 2:42 09/11 2:50 Unknown PM [employer] MIXER PM [employer] MIXER Lore Gianni Son MD LAB - JOLENE POCT Performing Organization Address City/State/ZIP Code [place] [address] Care Lab [address] Lab (1st floor, no room number) (ABNORMAL) Comprehensive metabolic panel (09/22/2021 10:42 AM D[employer]ER [employer] MIXER) [facility] Method Time Signature Sodium 136 133 - 144 09/22/2021 LABORATORY mmol/L 11:32 AM [employer] M[employer]ER Potassium 4.3 3.4 - 5.3 09/22/2021 LABORATORY mmol/L 11:32 AM D[employer] MIXER Chloride 107 94 - 109 09/22/2021 LABORATORY mmol/L 11:32 AM [employer] MIXER Carbon Dioxide 22 20 - 32 09/22/2021 LABORATORY (CO2) mmol/L 11:32 AM [employer] MIXER Anion Gap 7 3 - 14 09/22/2021 LABORATORY mmol/L 11:32 AM [employer] MIXER Urea Nitrogen 10 7 - 30 09/22/2021 LABORATORY mg/dL 11:32 AM [employer] MIXER Creatinine 0.38 (L) 0.52 - 09/22/2021 LABORATORY 1.04 11:32 AM D[employer] MIXER mg/dL Calcium 7.1 (L) 8.5 - 09/22/2021 LABORATORY 10.1 11:32 AM [employer] MIXER mg/dL Glucose 208 (H) 70 - 99 09/22/2021 LABORATORY mg/dL 11:32 AM [employer] MIXER Alkaline 90 40 - 150 09/22/2021 LABORATORY Phosphatase U/L 11:32 AM [employer] MIXER AST 17 0 - 45 09/22/2021 LABORATORY U/L 11:32 AM [employer] MIXER ALT 16 0 - 50 09/22/2021 LABORATORY U/L 11:32 AM [employer]IX[employer] Protein Total 6.1 (L) 6.8 - 8.8 09/22/2021 LABORATORY g/dL 11:32 AM [employer] MIX[employer] Albumin 2.2 (L) 3.4 - 5.0 09/22/2021 LABORATORY g/dL 11:32 AM [employer] MIXER Bilirubin Total 0.1 (L) 0.2 - 1.3 09/22/2021 LABORATORY mg/dL 11:32 AM [employer] MIXER GFR Estimate >90 >60 09/22/2021 [facility] mL/min/1. 11:32 AM [employer] MIXER 73m2 Comment: Effective July 31, 2021 eGF Rcr in adults is calculated using the 2020 CKD-EPI creatinine equation which includ es age and gender (Angelika et al., NEJ, DOI: 10.1056/IMFZgt9962669) Specimen Anatomical Collection Method / Collection Time Recei iva Time (Source) Location / Volume Laterality Blood TOPOGRAPHY UNKNOWN Venipuncture / 09/22/2021 10:42 07/2022 / Unknown Unknown AM [employer]IXER 11:06 AM [employer] MIXER Christianne Cotto MD LAB - BLOOD ORDERABLES Performing Organization Address City/State/ZIP Code [place] [phone] Care Lab [address] Lab (1st floor, no room number) (ABNORMAL) Glucose by meter (09/22/2021 9:15 AM D[employer] MIXER) P athologist Signature GLUCOSE BY 174 (H) 70 - 99 09/22/2021 [facility] METER POCT mg/dL 9:22 AM D[employer] MIXER POC Specimen (Source) Anatomical Collection Method Collection Time Re ceived Time Location / / Volume Laterality Blood, Capillary BLOOD SPECIMEN / 09/22/2021 9:15 09/11 9:22 Unknown AM [employer] MIXER AM [employer]IXER Lore Son MD LAB - BEAKER POCT Performing Organization Address City/[facility]/ZIP Code Phon e [place] [address] Care Lab [address] Lab (1st floor, no room number) (ABNORMAL) CBC with platelets (09/22/2021 7:18 AM D[employer] MIXER) Patholo gist Method Time Signature WBC Count 15.6 (H) 4.0 - 11.0 09/22/2021 [facility] 10e3/uL 2:46 PM [employer]ER RBC Count 3.15 (L) 3.80 - 09/22/2021 [facility] 5.20 2:46 PM [employer] MIXER 10e6/uL Hemoglobin 7.4 (L) 11.7 - 09/22/2021 [facility] 15.7 g/dL 2:46 PM [employer] MIXER Hematocrit 24.2 (L) 35.0 - 09/22/2021 [facility] 47.0 % 2:46 PM [employer] MIXER MCV 77 (L) 78 - 100 09/22/2021 [facility] fL 2:46 PM [employer] MIXER MCH 23.5 (L) 26.5 - 09/22/2021 [facility] 33.0 pg 2:46 PM [employer] MIXER MCHC 30.6 (L) 31.5 - 09/22/2021 [facility] 36.5 g/dL 2:46 PM [employer] MIXER RDW 15.3 (H) 10.0 - 09/22/2021 [facility] 15.0 % 2:46 PM [employer] MIXER Platelet Count 280 150 - 450 09/22/2021 [facility] 10e3/uL 2:46 PM [employer] MIXER Specimen Anatomical Collection Method Collection Time Receive d Time (Source) Location / / Volume Laterality Blood STRUCTURE OF RIGHT Capillary / 09/22/2021 7:18 AM 07/2022 7:39 HAND / Unknown Unknown [employer] MIXER AM [employer] MIXER Christianne Cotto MD LAB - BLOOD ORDERABLES Performing Organization Address City/State/ZIP [place] [address] Care Lab [address] Lab (1st floor, no room number) (ABNORMAL) Hemoglobin (09/22/2021 7:18 AM D[employer]ER [employer] MIXER) athologist Signature Hemoglobin 7.4 (L) 11.7 - 15.7 09/22/2021 LABORATORY g/dL 7:51 AM [employer] MIXER Specimen Anatomical Collection Method Collection Time Receive d Time (Source) Location / / Volume Laterality Blood STRUCTURE OF RIGHT Capillary / 09/22/2021 7:18 AM 07/2022 7:39 HAND / Unknown Unknown [employer]ER AM [employer]IXER Lore Son MD LAB - BLOOD ORDERABLES Performing Organization Address City/State/ZIP [place] [address] Care Lab [address] Lab (1st floor, no room number) (ABNORMAL) Glucose by meter (09/22/2021 5:54 AM [employer] MIXER) athologist Signature GLUCOSE BY 261 (H) 70 - 99 09/22/2021 [facility] METER POCT mg/dL 6:02 AM [employer]ER [employer] MIXER POC Specimen (Source) Anatomical Collection Method Collection Time Re ceived Time Location / / Volume Laterality Blood, Capillary BLOOD SPECIMEN / 09/22/2021 5:54 09/11 6:02 Unknown AM [employer]ER AND MIXER AM [employer] MIXER Lore Son MD LAB - BEAKER POCT Performing Organization Address [facility]/[place] [address] Care Lab [address] Lab (1st floor, no room number) (ABNORMAL) Glucose by meter (09/22/2021 1:08 AM D[employer] MIXER) athologist Signature GLUCOSE BY 229 (H) 09/22/2021 [facility] METER POCT mg/dL 1:16 AM [employer] MIXER POC Comment: /ELVIS Notified Specimen (Source) Anatomical Collection Method Collection Time Re ceived Time Location / / Volume Laterality Blood, Capillary BLOOD SPECIMEN / 09/22/2021 1:08 09/11 1:16 Unknown AM [employer]ER AND MIXER AM [employer]IXER Lore Son MD LAB - BENAT POCT Performing Organization Address [facility]/[place] [address] Care Lab [address] Lab (1st floor, no room number) (ABNORMAL) Glucose by meter (09/21/2021 9:34 PM [employer] MIXER) athologist Signature GLUCOSE BY 228 (H) 70 - 99 09/21/2021 [facility] METER POCT mg/dL 9:41 PM D[employer] MIXER POC Comment: /RN Notified Specimen (Source) Anatomical Collection Method Collection Time Re ceived Time Location / / Volume Laterality Blood, Capillary BLOOD SPECIMEN / 09/21/2021 9:34 09/11 9:41 Unknown PM [employer]ER [employer] MIXER PM [employer] MIXER Lore Son MD LAB - BENAT POCT Performing Organization Address City/[facility]/ZIP Code Phon e Number [facility] Acute DUPUYER, [place] [address] Care Lab [address] Lab (1st floor, no room number) CT Head w/o Contrast (09/21/2021 6:33 PM [employer]) Anatomical Region Laterality Modality Head, SUBRAD CT NEURO, SUBRAD CT NEURO, UMP CT NEURO, Computed Tomography RAD CT Specimen (Source) Anatomical Location Collection Method / Collectio n Time Received Time / Laterality Volume Impressions 09/22/2021 4:33 PM [employer] IMPRESSION: 1. No CT findings of acute intracranial process. 2. Mild generalized brain parenchymal vo lume loss. 3. Suggestion of minimal patchy nonspeci fic hypodensity in the cerebral white matter, as described. As clinically warranted, follow-up MRI c ould be considered for further evaluation, particularly given the patie nt's history of recent seizure-like activity. DEXTER LOWE MD SYSTEM ID: ??[id number] Narrative 09/22/2021 4:33 PM [employer] CT SCAN OF THE HEAD WITHOUT CONTRAST [...] seizure-like activity. DEXTER LOWE MD SYSTEM ID: [id number] Mikeselene Gianni Son MD IMG CT ORDERABLES (ABNORMAL) Glucose by meter (09/21/2021 5:19 PM [employer]) P athologist Signature GLUCOSE BY 239 (H) 70 - 99 09/21/2021 [facility] METER POCT mg/dL 5:28 PM [employer] POC Comment: Dr/RN Notified Specimen (Source) Anatomical Collection Method Collection Time Re ceived Time Location / / Volume Laterality Blood, Capillary BLOOD SPECIMEN / 09/21/2021 5:19 09/11 5:28 Unknown PM [employer] PM [employer] Lore [facility] POCT Performing Organization Address City/State/ZIP Code Ph[place] [address] Care Lab [address] Lab (1st floor, no room number) Placenta Path Order and Indications (PLACENTA) (09/21/2021 3:35 PM [employer]) Component Value Ref Test Analysis Performed At [facility] gist Range Method Time Signature Case Report Surgical Pathology Report ? Case: [id number] ? 09/25/2021 Authorizing Provider: ??Dinah merrill, Lore Archer, Collected: ? 09/21/2021 03:35 PM ? 2:34 PM LABORATOR Y ? MD ? [employer] Ordering Location: ? [facility] ?? Received: ?09/21/2021 04:27 PM ? Birthplace ? Pathologist: ? Serg Brady, ? MD ? Specimen: ?Placenta, Thi rd Trimester, Placenta ? Final Placenta: 09/25/2021 Electroni osiel Diagnosis - Membranes without diagnostic histologic abnormality. 2:34 PM LABORATORY signed by - Umbilical cord without diagnostic histologic abnormality. [employer] Serg Brady - Placenta disc weight withi n normal limits (between tenth percentile and ninetieth percentile) for 34 weeks gestational age. MD Erasmo on 09/25/2021 at 2:34 PM Clinical [id number] 09/25/2021 Information 2:34 PM LABORATORY [employer] Jf A(A). Placenta, Third Trimester, Placenta: 09/25/2021 [...] nearest placental margin and has 3 ves [employer] sels on cross-section. The f etal membranes are pink-purple and semitransparent. The maternal surface cotyledons are uniform and intact. Upon serial sectioning the placenta parenchyma is red-purple and s pongy throughout. [employer] sections are submitted in 3 cassettes. Cassette 1: Umbilical cord and membranes Cassette 2-3: Placenta parenchyma (DE Torres [facility]) Microscopic A microscopic 09/25/2021 Description examination is 2:34 PM LABORATORY performed. [employer] Performing The technical 09/25/2021 [facility] component of this 2:34 PM LABORATORY testing was [employer] completed at [facility] Case Images 09/25/2021 2:34 PM LABORATORY [employer] Specimen Anatomical Collection Method Collection Time Receive d Time (Source) Location / / Volume Laterality Placenta PLACENTAL Non-blood 09/21/2021 3:35 PM 4:27 STRUCTURE / Collection / [employer] PM [employer] Unknown Unknown Lore Son MD LAB - BEAKER AP Performing Organization Address City/[facility]/ZIP Code [place] [phone] Acute Care Lab [address] 1st floor, Room 20[address] [place] [address], Care Lab [facility] [address] Lab (1st floor, no room number) Magnesium (09/21/2021 2:07 PM [employer]) athologist Signature Magnesium 1.9 1.6 - 2.3 09/21/2021 [facility] mg/dL 5:42 PM [employer] Specimen Anatomical Collection Method / Collection Time Recei iva Time (Source) Location / Volume Laterality Blood STRUCTURE OF RIGHT Venipuncture / 09/21/2021 2:07 09/11 2:13 UPPER LIMB / Unknown PM [employer] PM [employer] Unknown Lore Son MD LAB - BLOOD ORDERABLES Performing Organization Address City/State/ZIP [place] [address] Care Lab [address] Lab (1st floor, no room number) (ABNORMAL) Creatinine (09/21/2021 2:05 PM [employer]) athologist Signature Creatinine 0.36 (L) 0.52 - 09/21/2021 [facility] 1.04 mg/dL 2:40 PM [employer] GFR Estimate >90 >60 09/21/2021 [facility] mL/min/1.7 2:40 PM [employer] 3m2 Comment: Effective July 31, 2021 eGF Rcr in adults is calculated using the 2020 CKD-EPI creatinine equation which includ es age and gender (Angelika et al., NE, DOI: 10.1056/CARLgw0696431) Specimen Anatomical Collection Method / Collection Time Recei iva Time (Source) Location / Volume Laterality Blood STRUCTURE OF RIGHT Venipuncture / 09/21/2021 2:05 09/11 2:13 UPPER LIMB / Unknown PM [employer] PM [employer] Unknown Lore Son MD LAB - BLOOD ORDERABLES Performing Organization Address City/State/ZIP [place] [address] Care Lab [address] Lab (1st floor, no room number) ALT (09/21/2021 2:05 PM [employer]) P athologist Signature ALT 14 0 - 50 U/L 09/21/2021 2:40 [facility] PM [employer] Specimen Anatomical Collection Method / Collection Time Recei iva Time (Source) Location / Volume Laterality Blood STRUCTURE OF RIGHT Venipuncture / 09/21/2021 2:05 09/11 2:13 UPPER LIMB / Unknown PM [employer] PM [employer] Unknown Lore Son MD LAB - BLOOD ORDERABLES Performing Organization Address City/State/ZIP [place] [address] Care Lab [address] Lab (1st floor, no room number) AST (09/21/2021 2:05 PM [employer]) P athologist Signature AST 13 0 - 45 U/L 09/21/2021 2:40 [facility] LABORATORY PM [employer] Specimen Anatomical Collection Method / Collection Time Recei iva Time (Source) Location / Volume Laterality Blood STRUCTURE OF RIGHT Venipuncture / 09/21/2021 2:05 09/11 2:13 UPPER LIMB / Unknown PM [employer] PM [employer] Unknown Lore Son MD LAB - BLOOD ORDERABLES Performing Organization Address City/State/ZIP [place] [phone] Care Lab [address] Lab (1st floor, no room number) (ABNORMAL) CBC with platelets (09/21/2021 2:05 PM [employer]) [facility] gist Method Time Signature WBC Count 15.1 (H) 4.0 - 11.0 09/21/2021 [facility] 10e3/uL 2:16 PM [employer] RBC Count 4.35 3.80 - 09/21/2021 [facility] 5.20 2:16 PM [employer] 10e6/uL Hemoglobin 10.1 (L) 11.7 - 09/21/2021 [facility] 15.7 g/dL 2:16 PM [employer] Hematocrit 33.8 (L) 35.0 - 09/21/2021 [facility] 47.0 % 2:16 PM [employer] MCV 78 78 - 100 09/21/2021 [facility] fL 2:16 PM [employer] MCH 23.2 (L) 26.5 - 09/21/2021 [facility] 33.0 pg 2:16 PM [employer] MCHC 29.9 (L) 31.5 - 09/21/2021 [facility] 36.5 g/dL 2:16 PM [employer] RDW 15.4 (H) 10.0 - 09/21/2021 [facility] 15.0 % 2:16 PM [employer] Platelet Count 316 150 - 450 09/21/2021 [facility] 10e3/uL 2:16 PM [employer] Specimen Anatomical Collection Method / Collection Time Recei iva Time (Source) Location / Volume Laterality Blood STRUCTURE OF RIGHT Venipuncture / 09/21/2021 2:05 02/08/2021 2:13 UPPER LIMB / Unknown PM [employer] PM [employer] Unknown Lore Son MD LAB - BLOOD ORDERABLES Performing Organization Address City/State/ZIP [place] [phone] Care Lab [address] Lab (1st floor, no room number) EKG 12-lead, tracing only (09/21/2021 1:45 PM [employer]) Component Value Ref Range Test Analysis Performed Pathologis t Method Time At Signature Systolic Blood mmHg RADIOLOGY Pressure RESULTS Diastolic Blood mmHg RADIOLOGY Pressure RESULTS Ventricular Rate 111 BPM RADIOLOGY RESULTS Atrial Rate 111 BPM RADIOLOGY RESULTS AL Interval 152 ms RADIOLOGY RESULTS QRS Duration 66 ms RADIOLOGY RESULTS QT 312 ms RADIOLOGY RESULTS QTc 424 ms RADIOLOGY RESULTS P [place] 64 degrees RADIOLOGY RESULTS R AXIS 52 degrees RADIOLOGY RESULTS T [place] 46 degrees RADIOLOGY RESULTS Interpretation Sinus tachycardia RADIOLO GY ECG Otherwise normal ECG RESULTS Confirmed by MD AIME, CONCEPCION NICOLE ([id number]), news video editor TULIO BETTS ([id number]) on 10/04/2021 7:58:14 AM Specimen Anatomical Collection Method Collection Time Receive d Time (Source) Location / / Volume Laterality 09/21/2021 1:45 PM 7:58 [employer] AM [employer] Nahid Freedman DO ECG ORDERABLES Performing Organization Address City/State/ZIP Code Phon e Number RADIOLOGY RESULTS (ABNORMAL) Glucose by meter (09/21/2021 1:36 PM [employer]) P athologist Signature GLUCOSE BY 174 (H) 70 - 99 09/21/2021 [facility] METER POCT mg/dL 1:42 PM [employer] POC Specimen (Source) Anatomical Collection Method Collection Time Re ceived Time Location / / Volume Laterality Blood, Capillary BLOOD SPECIMEN / 09/21/2021 1:36 09/11 1:42 Unknown PM [employer] PM [employer] Lore Son MD LAB - BEAKER POCT Performing Organization Address City/State/ZIP Code Phon [place] [address] Care Lab [address] Lab (1st floor, no room number) (ABNORMAL) Glucose by meter (09/21/2021 1:00 PM [employer]) P athologist Signature GLUCOSE BY 176 (H) 70 - 99 09/21/2021 [facility] METER POCT mg/dL 1:07 PM [employer] POC Specimen (Source) Anatomical Collection Method Collection Time Re ceived Time Location / / Volume Laterality Blood, Capillary BLOOD SPECIMEN / 09/21/2021 1:00 09/11 1:07 Unknown PM [employer] PM [employer] Lore Son MD LAB - BEAKER POCT Performing Organization Address City/State/ZIP Code [place] [address] Care Lab [address] Lab (1st floor, no room number) (ABNORMAL) Glucose by meter (09/21/2021 11:47 AM [employer]) P athologist Signature GLUCOSE BY 163 (H) 70 - 99 09/21/2021 [facility] METER POCT mg/dL 11:55 AM [employer] POC Specimen (Source) Anatomical Collection Method Collection Time Re ceived Time Location / / Volume Laterality Blood, Capillary BLOOD SPECIMEN / 09/21/2021 11:47 06/2022 Unknown AM [employer] 11:55 AM [employer] Lore Son MD LAB - BEAKER POCT Performing Organization Address City/[facility]/ZIP Code [place] [address] Care Lab [address] Lab (1st floor, no room number) (ABNORMAL) Glucose by meter (09/21/2021 10:30 AM [employer]) P athologist Signature GLUCOSE BY 163 (H) 70 - 99 09/21/2021 [facility] METER POCT mg/dL 10:37 AM [employer] POC Specimen (Source) Anatomical Collection Method Collection Time Re ceived Time Location / / Volume Laterality Blood, Capillary BLOOD SPECIMEN / 09/21/2021 10:30 06/2022 Unknown AM [employer] 10:37 AM [employer] Lore Son MD LAB - BEAKER POCT Performing Organization Address City/State/ZIP Code [place] [address] Care Lab [address] Lab (1st floor, no room number) (ABNORMAL) Comprehensive metabolic panel (09/21/2021 10:27 AM [employer]) Patholo gist Method Time Signature Sodium 136 133 - 144 09/21/2021 [facility] mmol/L 11:06 AM [employer] Potassium 3.8 3.4 - 5.3 09/21/2021 LABORATORY mmol/L 11:06 AM [employer] Chloride 108 94 - 109 09/21/2021 LABORATORY mmol/L 11:06 AM [employer] Carbon Dioxide 19 (L) 20 - 32 09/21/2021 LABORATORY (CO2) mmol/L 11:06 AM [employer] Anion Gap 9 3 - 14 09/21/2021 LABORATORY mmol/L 11:06 AM [employer] Urea Nitrogen 11 7 - 30 09/21/2021 LABORATORY mg/dL 11:06 AM [employer] Creatinine 0.38 (L) 0.52 - 09/21/2021 LABORATORY 1.04 11:06 AM [employer] mg/dL Calcium 8.7 8.5 - 09/21/2021 LABORATORY 10.1 11:06 AM [employer] mg/dL Glucose 189 (H) 70 - 99 09/21/2021 LABORATORY mg/dL 11:06 AM [employer] Alkaline 102 40 - 150 09/21/2021 LABORATORY Phosphatase U/L 11:06 AM [employer] AST 12 0 - 45 09/21/2021 LABORATORY U/L 11:06 AM [employer] ALT 17 0 - 50 09/21/2021 LABORATORY U/L 11:06 AM [employer] Protein Total 6.6 (L) 6.8 - 8.8 09/21/2021 LABORATORY g/dL 11:06 AM [employer] Albumin 2.2 (L) 3.4 - 5.0 09/21/2021 LABORATORY g/dL 11:06 AM [employer] Bilirubin Total 0.3 0.2 - 1.3 09/21/2021 LABORATORY mg/dL 11:06 AM [employer] GFR Estimate >90 >60 09/21/2021 LABORATORY mL/min/1. 11:06 AM [employer] 73m2 Comment: Effective July 31, 2021 eGF Rcr in adults is calculated using the 2020 CKD-EPI creatinine equation which includ es age and gender (Angelika et al., NEJM, DOI: 10.1056/MDASoz9675015) Specimen Anatomical Collection Method / Collection Time Recei iva Time (Source) Location / Volume Laterality Blood STRUCTURE OF RIGHT Venipuncture / 09/21/2021 10:27 06/2022 UPPER LIMB / Unknown AM [employer] 10:34 AM [employer] Unknown Isahaq Mohamed Huy MD LAB - BLOOD ORDERABLES Performing Organization Address City/State/ZIP [place] [phone] Care Lab [address] Lab (1st floor, no room number) (ABNORMAL) CBC with platelets (09/21/2021 10:27 AM [employer]) [facility] gist Method Time Signature WBC Count 12.1 (H) 4.0 - 11.0 09/21/2021 [facility] 10e3/uL 10:39 AM [employer] RBC Count 4.18 3.80 - 09/21/2021 [facility] 5.20 10:39 AM [employer] 10e6/uL Hemoglobin 9.8 (L) 11.7 - 09/21/2021 [facility] 15.7 g/dL 10:39 AM [employer] Hematocrit 32.5 (L) 35.0 - 09/21/2021 RH LAB[facility] 47.0 % 10:39 AM [employer] MCV 78 78 - 100 09/21/2021 RH LAB[facility]AT[facility] fL 10:39 AM [employer] MCH 23.4 (L) 26.5 - 09/21/2021 RH LAB[facility]AT[facility] 33.0 pg 10:39 AM [employer] MCHC 30.2 (L) 31.5 - 09/21/2021 [facility] 36.5 g/dL 10:39 AM [employer] RDW 15.3 (H) 10.0 - 09/21/2021 [facility] 15.0 % 10:39 AM [employer] Platelet Count 279 150 - 450 09/21/2021 [facility] 10e3/uL 10:39 AM [employer] Specimen Anatomical Collection Method / Collection Time Recei iva Time (Source) Location / Volume Laterality Blood STRUCTURE OF RIGHT Venipuncture / 09/21/2021 10:27 06/2022 UPPER LIMB / Unknown AM [employer] 10:34 AM [employer] Unknown Lore Son MD LAB - BLOOD ORDERABLES Performing Organization Address City/State/ZIP [place] [phone] Care Lab [address] Lab (1st floor, no room number) US Lower Extremity Venous Duplex Bilateral (09/21/2021 9:24 AM [employer]) Anatomical Region Laterality Modality Vascular, Thigh, Leg Ultrasound Specimen (Source) Anatomical Location Collection Method / Collectio n Time Received Time / Laterality Volume Impressions 09/21/2021 9:50 AM [employer] IMPRESSION: No deep vein thrombosis in either lower extremity. ?? HAILEY KAM DO Narrative 09/21/2021 9:50 AM [employer] VENOUS ULTRASOUND BILATERAL LEG(S) ??09/21/2021 9:24 AM [...] (ABNORMAL) Glucose by meter (09/21/2021 7:30 AM [employer]) P athologist Signature GLUCOSE BY 131 (H) 70 - 99 09/21/2021 [facility] METER POCT mg/dL 7:37 AM [employer] POC Specimen (Source) Anatomical Collection Method Collection Time Re ceived Time Location / / Volume Laterality Blood, Capillary BLOOD SPECIMEN / 09/21/2021 7:30 09/11 7:37 Unknown AM [employer]IXER AM [employer] MIXER Lore CHENG - AILYNAKER POCT Performing Organization Address City/State/ZIP Code Phon [place] [address] Care Lab [address] Lab (1st floor, no room number) Adult Type and Screen (09/21/2021 6:32 AM [employer]) [facility] Method Time Signature ABO/RH(D) O POS 09/21/2021 RH BLOOD 6:30 AM [employer] BANK Antibody Negative Negative 09/21/2021 RH BLOOD Screen 6:30 AM [employer] BANK SPECIMEN [id number] 09/21/2021 RH BLOOD EXPIRATION 6:30 AM [employer] BANK DATE Specimen Anatomical Collection Method / Collection Time Recei iva Time (Source) Location / Volume Laterality Blood STRUCTURE OF LEFT Venipuncture / 09/21/2021 6:32 09/21 7:02 UPPER LIMB / Unknown AM [employer]IXER AM [employer]IXER Unknown Jian Dunn MD LAB - BLOOD BANK TEST ORDER Performing Organization Address City/State/ZIP Code Phon e Number RH BLOOD BANK [address] [place] [address] (ABNORMAL) Comprehensive metabolic panel (09/21/2021 6:31 AM [employer]) [facility] Method Time Signature Sodium 135 133 - 144 09/21/2021 RH LABORATORY mmol/L 7:32 AM [employer] Potassium 4.1 3.4 - 5.3 09/21/2021 [facility] mmol/L 7:32 AM [employer] Chloride 109 94 - 109 09/21/2021 LABORATORY mmol/L 7:32 AM [employer] Carbon Dioxide 18 (L) 20 - 32 09/21/2021 LABORATORY (CO2) mmol/L 7:32 AM [employer] Anion Gap 8 3 - 14 09/21/2021 LABORATORY mmol/L 7:32 AM [employer] Urea Nitrogen 9 7 - 30 09/21/2021 LABORATORY mg/dL 7:32 AM [employer] Creatinine 0.35 (L) 0.52 - 09/21/2021 [facility] LAB[facility] 1.04 7:32 AM [employer] mg/dL Calcium 8.7 8.5 - 09/21/2021 [facility] LABORATORY 10.1 7:32 AM [employer] mg/dL Glucose 143 (H) 70 - 99 09/21/2021 LABORATORY mg/dL 7:32 AM [employer] Alkaline 104 40 - 150 09/21/2021 LABORATORY Phosphatase U/L 7:32 AM [employer]IX[employer] AST 10 0 - 45 09/21/2021 LABORATORY U/L 7:32 AM [employer] ALT 15 0 - 50 09/21/2021 LABORATORY U/L 7:32 AM [employer] Protein Total 6.8 6.8 - 8.8 09/21/2021 LABORATORY g/dL 7:32 AM [employer] Albumin 2.4 (L) 3.4 - 5.0 09/21/2021 RH LAB[facility] g/dL 7:32 AM [employer] Bilirubin Total 0.2 0.2 - 1.3 09/21/2021 LABORATORY mg/dL 7:32 AM [employer] GFR Estimate >90 >60 09/21/2021 LABORATORY mL/min/1. 7:32 AM [employer] 73m2 Comment: Effective July 31, 2021 eGF Rcr in adults is calculated using the 2020 CKD-EPI creatinine equation which includ es age and gender (Angelika et al., NEJM, DOI: 10.1056/[id number]) Specimen Anatomical Collection Method / Collection Time Recei iva Time (Source) Location / Volume Laterality Blood STRUCTURE OF LEFT Venipuncture / 09/21/2021 6:31 09/21 7:02 UPPER LIMB / Unknown AM [employer]IXER AM [employer]IXER Unknown Jian Dunn MD LAB - BLOOD ORDERABLES Performing Organization Address City/State/ZIP [place] [phone] Care Lab [address] Lab (1st floor, no room number) (ABNORMAL) CBC with platelets (09/21/2021 6:31 AM D[employer] MIXER) [facility] Method Time Signature WBC Count 13.8 (H) 4.0 - 11.0 09/21/2021 [facility] LABORATORY 10e3/uL 7:15 AM [employer] RBC Count 4.41 3.80 - 09/21/2021 [facility] LABORATORY 5.20 7:15 AM [employer]IX[employer] 10e6/uL Hemoglobin 10.1 (L) 11.7 - 09/21/2021 [facility] LAB[facility] 15.7 g/dL 7:15 AM [employer]IXER Hematocrit 34.4 (L) 35.0 - 09/21/2021 LABORATORY 47.0 % 7:15 AM [employer]IX[employer] MCV 78 78 - 100 09/21/2021 RH LABORATORY fL 7:15 AM [employer]IX[employer] MCH 22.9 (L) 26.5 - 09/21/2021 RH LABORATORY 33.0 pg 7:15 AM [employer] MCHC 29.4 (L) 31.5 - 09/21/2021 [facility] LABORATORY 36.5 g/dL 7:15 AM [employer] MIXER RDW 15.2 (H) 10.0 - 09/21/2021 RH LABORATORY 15.0 % 7:15 AM [employer]IXER Platelet Count 299 150 - 450 09/21/2021 [facility] LABORATORY 10e3/uL 7:15 AM [employer]IXER Specimen Anatomical Collection Method / Collection Time Recei iva Time (Source) Location / Volume Laterality Blood STRUCTURE OF LEFT Venipuncture / 09/21/2021 6:31 09/21 7:14 UPPER LIMB / Unknown AM [employer] MIXER AM [employer] MIXER Unknown Jian Dunn MD LAB - BLOOD ORDERABLES Performing Organization Address City/[facility]/ZIP [place] [address] Care Lab [address] Lab (1st floor, no room number) (ABNORMAL) Glucose by meter (09/21/2021 2:07 AM [employer] MIXER) P athologist Signature GLUCOSE BY 173 (H) 70 - 99 09/21/2021 RH LABORATORY METER POCT mg/dL 2:13 AM [employer]IX[employer] POC Specimen (Source) Anatomical Collection Method Collection Time Re ceived Time Location / / Volume Laterality Blood, Capillary BLOOD SPECIMEN / 09/21/2021 2:07 02/08/2021 2:13 Unknown AM [employer] AND MIXER AM [employer] MIXER Jian Dunn MD LAB - BEAKER POCT Performing Organization Address City/State/ZIP Code [place] [address] Care Lab [address] Lab (1st floor, no room number) (ABNORMAL) Glucose by meter (09/21/2021 12:09 AM D[employer] MIXER) P athologist Signature GLUCOSE BY 170 (H) 70 - 99 09/21/2021 RH LABORATORY METER POCT mg/dL 12:16 AM [employer] MIXER POC Specimen (Source) Anatomical Collection Method Collection Time Re ceived Time Location / / Volume Laterality Blood, Capillary BLOOD SPECIMEN / 09/21/2021 12:09 06/2022 Unknown AM [employer] MIXER 12:16 AM [employer]ER [employer] MIXER Jian CHENG - JOLENE POCT Performing Organization Address City/[facility]/ZIP Code [place] [phone] Care Lab [address] Lab (1st floor, no room number) (ABNORMAL) Glucose by meter (09/20/2021 9:31 PM [employer] MIXER) P athologist Signature GLUCOSE BY 169 (H) 70 - 99 09/20/2021 [facility] LABORAT[facility] METER POCT mg/dL 9:37 PM [employer]IXER POC Specimen (Source) Anatomical Collection Method Collection Time Re ceived Time Location / / Volume Laterality Blood, Capillary BLOOD SPECIMEN / 09/20/2021 9:31 02 9:37 Unknown PM [employer] AND MIXER PM [employer]ER AND MIXER Jian FERNÁNDEZ POCT Performing Organization Address [facility]/ZIP Code [place] [address] Care Lab [address] Lab (1st floor, no room number) (ABNORMAL) Glucose by meter (09/20/2021 6:59 PM [employer] MIXER) athologist Signature GLUCOSE BY 175 (H) 70 - 99 09/20/2021 [facility] LABORAT[facility] METER POCT mg/dL 7:06 PM [employer]IXER POC Specimen (Source) Anatomical Collection Method Collection Time Re ceived Time Location / / Volume Laterality Blood, Capillary BLOOD SPECIMEN / 09/20/2021 6:59 02 7:06 Unknown PM [employer]ER AND MIXER PM [employer] MIXER Jian FERNÁNDEZ POCT Performing Organization Address City/[facility]/ZIP Code [place] [address] Care Lab [address] Lab (1st floor, no room number) (ABNORMAL) Glucose by meter (09/20/2021 5:45 PM [employer]) P athologist Signature GLUCOSE BY 157 (H) 70 - 99 09/20/2021 LABORATORY METER POCT mg/dL 5:52 PM [employer] POC Specimen (Source) Anatomical Collection Method Collection Time Re ceived Time Location / / Volume Laterality Blood, Capillary BLOOD SPECIMEN / 09/20/2021 5:45 02/ 5:52 Unknown PM [employer] PM [employer] Jian Dunn MD LAB - [facility] POCT Performing Organization Address City/State/ZIP Code Ph[place] [address] Care Lab [address] [facility] no [facility] Asymptomatic COVID-19 Virus (Coronavirus) by PCR Nasopharyngeal (09/20/2021 2:42 PM [employer]) Analysis Performed At Patho logist Time Signature SARS CoV2 PCR Negative Negative 09/20/2021 LABORATORY 3:14 PM [employer] Comment: NEGATIVE: SARS-CoV-2 (COVID-19) RNA not detected, presumed negative. Specimen Anatomical Location / Collection Method Collection Michael e Received Time (Source) Laterality / Volume Swab NASOPHARYNGEAL Non-blood 09/20/2021 2:42 09/20/2021 2:48 STRUCTURE / Unknown Collection / PM [employer] PM [facility] Unknown Narrative LABORATORY - 09/20/2021 3:14 PM [employer] Testing was performed using the amanuel?? SARS-CoV-2 [...] exposure or clinical presentation sugges ts COVID-19. ??[facility] are certified under the Clinical Laborat ory Improvement Amendments of 1988 (CLIA-88) as qualified to perform moderate and/or high complexity laboratory testing. Jian Dunn MD LAB - MICRO GENERAL ORDERABL ES Performing Organization Address City/State/ZIP Code [place] [address] Care Lab [address] [facility] Lab (1st floor, no room number) Group B strep PCR (09/20/2021 2:42 PM [employer]) [facility] Group B Strep Negative Negative 09/21/2021 [facility] PCR 6:10 PM [employer] LABORATORY Comment: Presumed negative for Streptoco ccus agalactiae (Group B Streptococcus) or the number of organisms may be below the limit of detection of the assay. Penicillin, amoxicillin, or No 09/21/2021 6 :10 PM [employer] [facility] LABORATORY cephalosporin allergy? Specimen Anatomical Location Collection Method Collection Time Received Time (Source) / Laterality / Volume Swab STRUCTURE OF Non-blood 09/20/2021 2:42 09/20/2021 2 :48 RECTOVAGINAL SEPTUM Collection / PM [employer] PM [employer] / Unknown Unknown Narrative [facility] LABORATORY - 09/21/2021 6:[address] The Cepheid Xpert GBS LB Assay, performe d on the [employer]?? Instrument Systems, is a qualitative in vitro [...] or monitor treatment for GBS infections. The [employer]id Xpert GBS LB Ass ay is intended for use in hospital, reference or state laboratory settings. The device is not intended for vcgeu-ri-yzfk use. Jian Dunn MD LAB - MICRO GENERAL ORDERABL ES Performing Organization Address City/[facility]/ZIP Code Phon e Number [facility] LABORATORY [facility] [place] [address] Diag. Lab [address], [address] [facility] LABORATORY [facility] Infectious [place], [place] [phone] Diseases Diagnostic [id number], [facility] Lab (IDDL) [address] [facility], Room [address]297 Maternal BPP Single (09/20/2021 2:01 PM [employer]) Anatomical Region Laterality Modality Ultrasound Specimen (Source) Anatomical Collection Method Collection Time Re ceived Time Location / / Volume Laterality 09/20/2021 1:34 PM [employer] Impressions 09/20/2021 5:41 PM [employer] IMPRESSION 1) Wolfe intrauterine at 3 4w 4d gestational age. 2) The BPP is reassuring. 3) The amniotic fluid volume appeared no rmal. Narrative 09/20/2021 5:41 PM [employer] BPP Pat. Name: MARCUS APARICIOHA Study Date: 09/20 1:34pm Pat. NO: [id number] Referring ??: IDALMIS CARIAS Site: [facility] [employer]: Kylah Condon RDMS : 1995 Age: 26 [...] Pat. Name:Tamera APARICIO Date:09/20/19 1:34pm Pat. NO: [id number] :VALERIA CABALLERO [facility] Saavedra :1995Age:26 INDICATION Poorly controlled Type II [...] volume appeared no rmal. J[facility] ORDERABLES (ABNORMAL) Wet preparation (09/20/2021 11:39 AM [employer]) Analysis Performed At Patho logist Time Signature Trichomonas Absent Absent LESLIE 09/20/2021 LABORATORY 12:08 PM [employer] Yeast Absent Absent LESLIE 09/20/2021 LABORATORY 12:08 PM [employer] Clue Cells Absent Absent LESLIE 09/20/2021 LABORATORY 12:08 PM [employer] WBCs/high power 1+ (A) None LESLIE 09/20/2021 LABORATORY field 12:08 PM [employer] Specimen Anatomical Collection Method Collection Time Receive d Time (Source) Location / / Volume Laterality Swab VAGINAL STRUCTURE Non-blood 09/20/2021 11:39 2021 / Unknown Collection / AM [employer] 11:42 AM [employer] Unknown Jian Dunn MD LAB - MICRO GENERAL ORDERABL ES Performing Organization Address City/State/ZIP Code [place] [address] [facility] [address] Lab (1st floor, no room number) (ABNORMAL) Protein random urine (09/20/2021 11:36 AM [employer]) P athologist Signature Total Protein 0.79 g/L 09/20/2021 LABORATORY Random Urine 12:09 PM [employer] g/L Comment: The reference range has not bee n established for total protein in random urine samples. ??The result should be in tegrated into the clinical context for interpretation. Total Protein Urine 0.51 (H) 0.00 - 0.20 g/g 09/20/2021 12: 09 PM LABORATORY g/gr Creatinine Cr [employer] Creatinine Urine mg/dL 156 mg/dL 09/20/2021 12:09 PM LABORATORY [employer] Specimen Anatomical Collection Method Collection Time Receive d Time (Source) Location / / Volume Laterality Urine MID-STREAM URINE Non-blood 09/20/2021 11:36 022 SPECIMEN / Unknown Collection / AM [employer] 11:42 AM [employer] Unknown Jian Dunn MD LAB - URINE ORDERABLES Performing Organization Address City/[facility]/ZIP [place] [address] Care Lab [address] Lab (1st floor, no room number) Uric acid (09/20/2021 11:36 AM [employer]) P athologist Signature Uric Acid 3.4 2.6 - 6.0 09/20/2021 [facility] LABORATORY mg/dL 11:59 AM [employer] Specimen Anatomical Collection Method / Collection Time Recei iva Time (Source) Location / Volume Laterality Blood STRUCTURE OF RIGHT Venipuncture / 09/20/2021 11:36 05/2022 UPPER LIMB / Unknown AM [employer] 11:39 AM [employer] Unknown Jian Dunn MD LAB - BLOOD ORDERABLES Performing Organization Address City/[facility]/ZIP [facility] [place] [address] Care Lab [address] Lab (1st floor, no room number) (ABNORMAL) Comprehensive metabolic panel (09/20/2021 11:36 AM [employer]) Patholo gist Method Time Signature Sodium 138 133 - 144 09/20/2021 LABORATORY mmol/L 11:59 AM [employer] Potassium 4.0 3.4 - 5.3 09/20/2021 [facility] LABORATORY mmol/L 11:59 AM [employer] Chloride 111 (H) 94 - 109 09/20/2021 LABORATORY mmol/L 11:59 AM [employer] Carbon Dioxide 22 20 - 32 09/20/2021 LABORATORY (CO2) mmol/L 11:59 AM [employer] Anion Gap 5 3 - 14 09/20/2021 LABORATORY mmol/L 11:59 AM [employer] Urea Nitrogen 10 7 - 30 09/20/2021 LABORATORY mg/dL 11:59 AM [employer] Creatinine 0.40 (L) 0.52 - 09/20/2021 LABORATORY 1.04 11:59 AM [employer] mg/dL Calcium 8.7 8.5 - 09/20/2021 LABORATORY 10.1 11:59 AM [employer] mg/dL Glucose 114 (H) 70 - 99 09/20/2021 LABORATORY mg/dL 11:59 AM [employer] Alkaline 102 40 - 150 09/20/2021 LABORATORY Phosphatase U/L 11:59 AM [employer] AST 13 0 - 45 09/20/2021 LABORATORY U/L 11:59 AM [employer] ALT 14 0 - 50 09/20/2021 LABORATORY U/L 11:59 AM [employer] Protein Total 6.4 (L) 6.8 - 8.8 09/20/2021 LABORATORY g/dL 11:59 AM [employer] Albumin 2.1 (L) 3.4 - 5.0 09/20/2021 LABORATORY g/dL 11:59 AM [employer] Bilirubin Total 0.1 (L) 0.2 - 1.3 09/20/2021 LABORATORY mg/dL 11:59 AM [employer] GFR Estimate >90 >60 09/20/2021 LABORATORY mL/min/1. 11:59 AM [employer] 73m2 Comment: Effective July 31, 2021 eGF Rcr in adults is calculated using the 2020 CKD-EPI creatinine equation which includ es age and gender (Angelika et al., NEJ, DOI: 10.1056/VFONwf4900542) Specimen Anatomical Collection Method / Collection Time Recei iva Time (Source) Location / Volume Laterality Blood STRUCTURE OF RIGHT Venipuncture / 09/20/2021 11:36 05/2022 UPPER LIMB / Unknown AM [employer] 11:39 AM [employer] Unknown Jian Dunn MD LAB - BLOOD ORDERABLES Performing Organization Address City/State/ZIP [place] [address] Care Lab [address] Lab (1st floor, no room number) (ABNORMAL) CBC with platelets (09/20/2021 11:36 AM [employer]) [facility] gist Method Time Signature WBC Count 8.6 4.0 - 11.0 09/20/2021 [facility] LABORATORY 10e3/uL 11:41 AM [employer] RBC Count 4.20 3.80 - 09/20/2021 [facility] LABORATORY 5.20 11:41 AM [employer] 10e6/uL Hemoglobin 9.7 (L) 11.7 - 09/20/2021 [facility] LABORATORY 15.7 g/dL 11:41 AM [employer] Hematocrit 32.8 (L) 35.0 - 09/20/2021 [facility] LABORATORY 47.0 % 11:41 AM [employer] MCV 78 78 - 100 09/20/2021 [facility] LABORATORY fL 11:41 AM [employer] MCH 23.1 (L) 26.5 - 09/20/2021 [facility] LABORATORY 33.0 pg 11:41 AM [employer] MCHC 29.6 (L) 31.5 - 09/20/2021 [facility] LABORATORY 36.5 g/dL 11:41 AM [employer] RDW 15.2 (H) 10.0 - 09/20/2021 [facility] LABORATORY 15.0 % 11:41 AM [employer] Platelet Count 234 150 - 450 09/20/2021 [facility] LABORATORY 10e3/uL 11:41 AM [employer] Specimen Anatomical Collection Method / Collection Time Recei iva Time (Source) Location / Volume Laterality Blood STRUCTURE OF RIGHT Venipuncture / 09/20/2021 11:36 05/2022 UPPER LIMB / Unknown AM [employer] 11:39 AM [employer] Unknown Jain Dunn MD LAB - BLOOD ORDERABLES Performing Organization Address City/State/ZIP [place] [address] Care Lab [address] Lab (1st floor, no room number) (ABNORMAL) Glucose by meter (09/20/2021 11:17 AM [employer]) P athologist Signature GLUCOSE BY 122 (H) 70 - 99 09/20/2021 LABORATORY METER POCT mg/dL 11:24 AM [employer] POC Specimen (Source) Anatomical Collection Method Collection Time Re ceived Time Location / / Volume Laterality Blood, Capillary BLOOD SPECIMEN / 09/20/2021 11:17 05/2022 Unknown AM [employer] 11:24 AM [employer] Jian Dunn MD LAB - BEAKER POCT Performing Organization Address City/State/ZIP Code [place] [address] Care Lab [address] [facility] Lab (1st floor, no room number) documented in this encounter Visit Diagnoses Diagnosis S/P - Primary Other postprocedural status Elevated blood sugar Other abnormal glucose Pre-eclampsia Mild or unspecified pre-eclampsia, unspe cified as to episode of care 34 weeks gestation of state, incidental documented in this encounter Admitting Diagnoses Diagnosis Pre-eclampsia Mild or unspecified pre-eclampsia, unspe cified as to episode of care documented in this encounter Administered Medications Inactive Administered Medications - up to 3 most recent administrations Medication Order MAR Action Action Date Dose Rate Site acetaminophen (TYLENOL) tablet Given 09/24/2021 11:29 AM [employer] 975 mg 975 mg 975 mg, Oral, EVERY 6 HOURS, First dose on Fri09/21/21 at 1730, Maximum acetaminophen dose from all sources = 75 mg/kg/day not to exceed 4 grams/day. Given 09/24/2021 2:32 AM [employer] 975 mg Given 09/23/2021 7:13 PM [employer] 975 mg calcium gluconate 10 % injection 1 [...] mg/dL. Vesicant. fentaNYL (PF) (SUBLIMAZE) injection 25 m cg [...] tablet 800 mg Given 09/24/2021 11:29 AM [employer] 800 mg 800 mg, Oral, EVERY 6 HOURS, First dose on 09/22/21 at 1700, Give with food. Given 09/24/2021 2:32 AM [employer] 800 mg Given 09/23/2021 7:13 PM [employer] 800 mg insulin aspart (NovoLOG) injection (RAPID Given 09/23/2021 9:54 PM [employer] 1 Units ACTING) 1-7 Units, Subcutaneous, 3 [...] start of meal. Given 09/23/2021 5:10 PM [employer] 1 Units Given 09/22/2021 8:58 PM [employer] 2 Units insulin aspart (NovoLOG) injection (RAPI [...] injection (RAPID Given 09/24/2021 1 2:57 PM [employer] 7 Units ACTING) Subcutaneous, 3 TIMES DAILY BEFORE MEALS, First dose on 09/22/21 at 1700, Dose = 1 units per 15 grams of carbohydate. If given at mealtime, administer within 30 minutes of start of meal. Given 09/23/2021 9:54 PM [employer] 5 Units Given 09/23/2021 5:11 PM [employer] 5 Units insulin NPH injection 10 Units Given 09/23/2021 5:13 PM [employer] 10 Units 10 Units, Subcutaneous, DAILY WITH SUPPER, First dose on 09/23/21 at 1700 insulin NPH injection 15 Units 15 Units, Subcutaneous, EVERY MORNING BE FORE BREAKFAST, First dose on Fri09/24/21 at 0730 labetalol (NORMODYNE/TRANDATE) algorithm -medication instruction CONTINUOUS PRN, Starting on Fri09/21/21 at 1344, Until Fri09/24/21 at 1529 labetalol (NORMODYNE/TRANDATE) injection 20-80 Given 0 09/21/2021 1:50 PM [employer] 20 mg mg 20-80 mg, Intravenous, EVERY [...] 300 mg/24hours. PROTECT FROM LIGHT. lactated ringers infusion New Bag 09/22/2021 1:06 AM [employer] 75 mL/hr 75 mL/hr at 10-125 mL/hr, Intravenous, CONTINUOUS, Titrate lactated ringers rate to obtain total IV intake of 125 mL/hour, Starting on Fri09/21/21 at 1400, Until Fri09/24/21 at 1529 LORazepam (ATIVAN) injection 2 mg 2 mg, Intravenous, EVERY 3 MIN PRN, seiz ures, IF unresponsive to magnesium dosing., Administer over 1 Minutes, Starting on 09/21/21 at 1344, For 4 doses, This [...] during magnesium sulfate loading dose magnesium sulfate infusion New Bag 09/22/2021 9:18 AM [employer] 2 g/hr 50 mL/hr 2 g/hr (50 [...] pre-term labor. New Bag 09/21/2021 2:36 PM [employer] 2 g/hr 50 mL/hr magnesium sulfate injection [...] on. Irritant. metoclopramide (REGLAN) tablet 10 mg 10 mg, [...] have not improved after 4 naloxone doses. ondansetron (ZOFRAN) injection 4 mg 4 mg, [...] tablet 5-10 mg Given 09/24/2021 11:30 AM [employer] 5 mg 5-10 mg, Oral, EVERY 4 HOURS PRN, other, pain control or improvement in physical function. Hold dose for analgesic side effects., Starting on Fri09/21/21 at 1720, Notify provider to assess for uncontrolled pain or analgesic side effects. Hold while on MAINTENANCE PLANNER or with regular IV opioid dosing. Maximum total is 60 mg in 24 hours. Given 09/23/2021 9:52 PM [employer] 5 mg Given 09/21/2021 9:45 PM [employer] 5 mg prochlorperazine (COMPAZINE) injection 1 0 [...] for loose stools. Given 09/21/2021 9:46 PM [employer] 1 tablet senna-docusate (SENOKOT-S/PERICOLACE) 8. 6-50 MG per tablet 2 tablet 2 tablet, Oral, 2 TIMES DAILY, First dos e on Fri09/21/21 at 2100, Hold for loose stools. Preferred agent for constipation related to opioids. Hold for loose stools. sodium chloride (PF) 0.9% PF flush 3 mL Given 09/24/2021 2:20 AM [employer] 3 mLs 3 mL, Intracatheter, EVERY 8 HOURS, First dose on Fri09/21/21 at 1730, to lock peripheral IV dormant line Given 09/22/2021 3:11 PM [employer] 3 mLs Given 09/22/2021 9:25 AM [employer] 3 mLs sodium chloride 0.9% (bottle) irrigation Given 09/21/2021 3:40 PM [employer] 750 mLs PRN, Starting on Fri09/21/21 at 1540, Anesthesia Intra-op documented in this encounter Active and Recently Administered Medications Times are shown in [employer]. Scheduled Medication Order 09/22/2021 09/23/2021 09/24/2021 acetaminophen (TYLENOL) tablet 975 mg 0020 (Given - Pr ovider: Allison Núñez RN)0602 (Not Given - Provider: Judie Ochoa RN - Reason: Patient/family refused)0921 (Given - Provider: Any Ruiz RN)1557 (Given - Provider: Any Ruiz RN) 0649 (Given - Provider: Judie Ochoa RN)1319 (Given - Provider: Caridad Stout RN)1913 (Given - Provider: Rufina Mcpherson RN) 0232 (Given - Provider: [place] arreguin RN)1129 (Given [...] Ochoa RN)1319 (Given - Provider: Caridad Stout RN)1913 (Given - Provider: Rufina Mcpherson RN) 0232 (Given - Provider: [place] arreguin RN)1129 (Given [...] Subcutaneous, EVERY 4 HOURS, First dose on 09/21/21 at 1430, Correction Scale - MEDIUM INSULIN [...] Comment: 107 bs)1710 (Given - Provider: Rufina Mcpherson, ELVIS)2154 (Given - Provider: Rufina Mcpherson RN - Comment: dinner ot 167) 1206 (Not Given - Provider: Deandra Terrazas RN - Reason: Order parameters not met - Comment: OT prior to first meal of day was 107.)1207 (Canceled Entry - Provider: Deandra Taylor, ELVIS) 1-7 Units, Subcutaneous, 3 TIMES DAILY B [...] meal. insulin aspart (NovoLOG) injection (RAPID ACTING) 5 (Not Given - Provider: Judie Ochoa RN [...] meal. insulin aspart (NovoLOG) injection (RAPID ACTING) 223 (Given - Provider: Judie Ochoa RN - [...] tablet(Linked Group 1) 0920 (Given - Provider: Any Ruiz RN)2247 (See Alternative - Provider: Judie [...] 1) 0920 (See Alternative - Provider: Any Ruiz RN)2247 (Not Given - Provider: Judie Ochoa RN - Reason: Contraindicated) 1128 (See Alternative - Provider: Caridad Stout, ELVIS)2132 (See Alternative - Provider: Rufina Mcpherson RN) 1100 (See Alternative - Provider: Piotr Taylor, ELVIS) 2 tablet, Oral, 2 TIMES DAILY, First dos e on Fri09/21/21 at 2100, Hold for loose stools. Preferred agent for constipation related to opioids. Hold for loose stools. sodium chloride (PF) 0.9% PF flush 3 mL 0106 (Given - Provider: Allison Núñez RN)0925 (Given - Provider: Any Ruiz RN)1511 (Given - Provider: Any Ruiz RN)1730 (Canceled Entry - Provider: Any Ruiz RN) 0130 (Canceled Entry - Provider: Judie Ochoa RN)1129 (Canceled Entry - Provider: Caridad Stout RN)1727 (Not Given - Provider: Rufina Mcpherson RN - Reason: No IV Access) 0220 (Given - Provider: [place] arreguin RN)1205 (Canceled Entry - Provider: Deandra Taylro RN) 3 mL, Intracatheter, EVERY 8 HOURS, Firs t dose on Fri09/21/21 at 1730, to lock peripheral IV dormant line Continuous Medication Order 09/22/2021 09/23/2021 09/24/2021 lactated ringers infusion 0106 (New Bag - Provider: Allison Núñez RN) at 10-125 mL/hr, Intravenous, CONTINUOUS , Titrate lactated ringers rate to obtain total IV intake of 125 mL/hour, Starting on Fri09/21/21 at 1400, Until Fri09/24/21 at 1529 magnesium sulfate infusion 0918 (New Bag - Provider: Marisol Ruiz, RN)1503 (Stopped - Provider: Any Ruiz, RN) 2 g/hr (50 mL/hr), Intravenous, CONTINUO [...] sugar, Administer over 1-5 Minutes, Starting on Fri09/22/21 at 0808, Use if have IV access, [...] mcg 200 mcg, Intramuscular, EVERY 2 HOURS AL N, ONLY for uterine atony with significant [...] or analgesic side effects. Hold while on MAINTENANCE PLANNER or with regular IV opioid dosing. Maximum [...] 2 TIMES DAILY, First dos e on 09/21/21 at 2100
Hold for loose stools. Preferred [...] 6 HOURS PRN, nausea, vomiting, Starting on 09/21/21 at 1720
This is Step 1 of [...] after each naloxone dose. Consider transfer to [facility] if patient respiratory parameters hav e not [...] provider.
documented in this encounter Care Teams Trailer Driver Relationship Specialty Start Date End Date MD Jeanette Endocrinology, 08/29/21 MD Hermelinda Diabetes, and [address] [facility] Metabolism [address] [place] [id number] Radha Reid Endocrinology 09/09/21 MD Hermelinda Provider [address] [id number] documented as of this encounter
[2022-07-12 20:22] VITALS: BP 132/81; PULSE 92; RESP 28; TEMP 37.1; O2SAT 100; BMI 32.9
--- OUTSIDE RECORDS SUMMARY | 2022-07-12 20:22 | XMS_ITS | Encounter Summary ---
:1995 Author Organization [place] [facility] Address [address] [place] [address] Care Team Providers Name Role Phone Hermelinda Reid MD Unavailable [phone] Reason for Visit Reason Comments Video Visit Encounter Details Date Type Department Care Team Description 09/05/2021 Virtual Visit [facility] Jeanette, Type 2 diabetes Endocrinology Clinic MD Hermelinda mellitus with [address] hyperglycemia, [address] [facility] [address] [facility] 101 unspecified whether 3rd Floor [place], [place] [address] use (H) (Primary Dx) [id number] Social History Tobacco Use Types Packs/Day Years Used Date Smoking Tobacco: Never Smokeless Tobacco: Never Alcohol Use Standard Drinks/Week Comments Not Currently 0 (1 standard drink = 0.6 oz pure alcoho l) Sex Assigned at Date Recorded Female 09/11/2021 7:15 AM SUPERVISOR INTERMEDIATES COVID-19 Exposure Response Date Recorded In the last month, have you been in contact with No / Unsure 08/26/2021 1:50 PM SUPERVISOR INTERMEDIATES someone who was confirmed or suspected to have Coronavirus / COVID-19? documented as of this encounter Progress Notes Mily Kingston - 09/05/2021 11:30 AM CST Outcome for 09/04/21 12:15 PM: Reached patient but requests call back at 3pm Mily Kingston, VF Outcome for 09/04/21 3:48 PM: Left Voicemail Mily Kingston VF Outcome for 09/04/21 4:37 PM: Left Voicemail Mily Kingston, MARIPOSA [employer] Garima Rodriguez - 09/05/2021 11:30 AM CST Valery is a 26 year old who is being evaluated via a billable video visit. How would you like to obtain your AVS? Mail a copy If the video visit is dropped, the invitation should be resent by: Text to cell phone: [phone] Will anyone else be joining your video visit? No Garima MONGE Video-Visit Details Type of service: Video Visit Originating Location (pt. Location): Home Distant Location (provider location): [facility] [place] Platform used for Video Visit: Yari [employer] Hermelinda Reid MD - 09/05/2021 11:30 AM CST Images from the original note were not included. Endocrinology Note Valery is a 26 year old female presents today for pre-exising type 2 diabetes in HPI Valery is a 26 year old female presents today for pre-exising type 2 diabetes in She is curren with PAYTON 10/28/21 who is 32 weeks and being evaluated for type 2 diabetes in . She is seen today today for poorly controlled type 2 diabetes. She was diagnosed with type 2 diabetes in 6.5-8.3%. Prior to she was on metformin 500 mg bid x2 years. The pt has seen Dr Rohca an Open Hearth Furnace Operator earlier in the for diabetes management and was switched from metformin to insulin NPH and regular. She reports no diabetes with her previous but had pre-eclampsia which subsequently had C/S. This current is her second. She is currently 32 weeks . Interim history She did not check blood glucose as often as it should be. She reports BGs were still high. She reports FBG~ 130 and postprandial BG~180. Current diabetes regimen: NPH 32 units and Regular 16 units with breakfast NPH 26 units and Regular 20 units with supper Her gives insulin injection to her. Past Medical History Past Medical History: Diagnosis Date ??? Diabetes (H) Allergies No Known Allergies Medications Current Outpatient Medications Medication Sig Dispense Refill ??? acetaminophen (TYLENOL) 325 MG tablet Take 325-650 mg by mouth every 6 hours as needed for mild pain ??? aspirin (ASA) 81 MG chewable tablet Take 81 mg by mouth daily ??? blood glucose (ACCU-CHEK GUIDE) test strip Use to test 4 times a day. ??? blood glucose (NO BRAND SPECIFIED) test [...] ODT tab Take 4 mg by mouth Family History family history is not on file. Social History Social History Tobacco Use ??? Smoking status: Never Smoker ??? Smokeless tobacco: Never Used Substance Use Topics ??? Alcohol use: Not Currently ??? Drug use: Never ROS 10 points ROS were negative otherwise mentioned in HPI Physical Exam LMP 01/21/2021 There is no height or weight on file to calculate BMI. Limited due to virtual visit Constitutional: no distress, comfortable, pleasant Eyes: anicteric Psychological: appropriate mood RESULTS I have personally reviewed labs and images. I also reviewed labs with patient and discussed the result and plan of care. ASSESSMENT: Valery is a 26 year old female presents today for pre-exising type 2 diabetes in 1) Pre-existing type 2 diabetes in : has had type 2 diabetes and was on metformin before . After , she was switched to NPH and regular insulin. She is currently at 32 weeks . Her glucose is still suboptimally control. Will adjust insulin as follows PLAN: Increase NPH 36 units and Regular 20 units with breakfast Increase NPH 30 units and Regular 26 units with supper Continue to check blood glucose before breakfast and 2 hours after meal Return for virtual visit in 1 week with me or PA Start: 09/05/2021 11:15 am Stop: 09/05/2021 11:25 am VDO duration 10 minutes External notes/medical records independently reviewed, labs and imaging independently reviewed, medical management and tests to be discussed/communicated to patient. Time: I spent 29 minutes spent on the date of the encounter preparing to see patient (including chart review and preparation), obtaining and or reviewing additional medical history, performing a physical exam and evaluation, documenting clinical information in the electronic health record, independently interpreting results, communicating results to the patient and coordinating care. Hermelinda Reid MD Division of Diabetes and Endocrinology Department of Medicine [phone] [employer] documented in this encounter Nursing Notes Garima Rodriguez - 09/05/2021 11:30 AM CST Patient stated she did not know her height and weight. [employer] documented in this encounter Plan of Treatment Upcoming Encounters Date Type Specialty Care Team Description 07/26/2022 Appointment Radiology. Dion Ramirez MD [address] [place], [place] [address] Liliana Wright MD [address] [address] 07/26/2022 Office Visit Maternal and Dion Ramirez MD [address] [place], [place] [address] Medicine Liliana Wright MD [address] [address] 08/13/2022 Appointment Cardiology Dion Ramirez MD [address] [place], [place] [address] (Wo rk) documented as of this encounter Visit Diagnoses Diagnosis Type 2 diabetes mellitus with hyperglyce ashu, unspecified whether fdc insulin use (H) - Primary documented in this encounter Care Teams Security Sales Consultant Relationship Specialty Start Date End Date Hermelinda Reid MD Endocrinology, Diabetes, MD and Metabolism [address] [place] [address] documented as of this encounter
--- OUTSIDE RECORDS SUMMARY | 2022-07-12 20:22 | XMS_ITS | Encounter Summary ---
:1995 Author Organization [facility] Address [address] [place] [address] Care Team Providers Name Role Phone Hermelinda Reid MD Unavailable [phone] Hermelinda Reid MD Unavailable [phone] Encounter Details Date Type Department Care Team Description 09/20/2021 Orders Only [facility] Lore Son Type 2 diabetes Women[facility] Clinic MD Gianni mellitus (H) (Primary [place] [address] Dx) [address] [place] [address] [address] [place] [address] Social History Tobacco Use Types Packs/Day Years Used Date Smoking Tobacco: Never Smokeless Tobacco: Never Alcohol Use Standard Drinks/Week Comments Not Currently 0 (1 standard drink = 0.6 oz pure alcoho l) Sex Assigned at Date Recorded Female 09/11/2021 7:15 AM MAINTENANCE CUSTODIAN COVID-19 Exposure Response Date Recorded In the last month, have you been in contact with No / Unsure 09/20/2021 11:06 AM MAINTENANCE CUSTODIAN someone who was confirmed or suspected to have Coronavirus / COVID-19? documented as of this encounter Progress Notes Em Fairchild RN - 09/20/2021 10:22 AM CST Twice weekly BPP ordered under Dr Torrez. Pt had previous order from her other clinic so reports were going to that provider per M RN. Em Fairchild RN TENANCE CUSTODIAN documented in this encounter Plan of Treatment Upcoming Encounters Date Type Specialty Care Team Description 07/26/2022 Appointment Radiology. Dion Ramirez MD [address] [place], [place] [address] Liliana Wright MD [address] [place] [address] [facility] 395 [place], [place] [address] 07/26/2022 Office Visit Maternal and Dion Ramirez MD [address] [place], [place] [address] Medicine Liliana Wright MD [address] [place] [facility] 395 [place], [place] [address] 08/13/2022 Appointment Cardiology Dion Ramirez MD [address] [place], [place] [address] (Wo rk) documented as of this encounter Visit Diagnoses Diagnosis Type 2 diabetes mellitus (H) - Primary Type II or unspecified type diabetes jo-ann litus without mention of complication, not stated as uncontrolled documented in this encounter Care Teams Energy Broker Relationship Specialty Start Date End Date MD Jeanette Endocrinology, 08/29/21 MD Hermelinda Diabetes, and [address] [place] [address] [facility] Metabolism 101 [place] [address] Radha Reid Endocrinology 09/09/21 MD Hermelinda Provider [address] [place] [address] [facility] 101 [place] [address] documented as of this encounter
--- OUTSIDE RECORDS SUMMARY | 2022-07-12 20:22 | XMS_ITS | Encounter Summary ---
:1995 Author Organization [facility] Address [address] [place] [address] Care Team Providers Name Role Phone Hermelinda Reid MD Unavailable [phone] Hermelinda Reid MD Unavailable [phone] Encounter Details Date Type Department Care Team Description 09/20/2021 Travel Social History Tobacco Use Types Packs/Day Years Used Date Smoking Tobacco: Never Smokeless Tobacco: Never Alcohol Use Standard Drinks/Week Comments Not Currently 0 (1 standard drink = 0.6 oz pure alcoho l) Sex Assigned at Date Recorded Female 09/11/2021 7:15 AM AUTOMOTIVE DETAILER COVID-19 Exposure Response Date Recorded In the last month, have you been in contact with No / Unsure 09/20/2021 11:06 AM AUTOMOTIVE DETAILER someone who was confirmed or suspected to have Coronavirus / COVID-19? documented as of this encounter Plan of Treatment Upcoming Encounters Date Type Specialty Care Team Description 07/26/2022 Appointment Radiology. Dion Ramirez MD [address] [place], [place] [address] Liliana Wright MD 420 [facility] 395 [place], [place] [address] 07/26/2022 Office Visit Maternal and Dion Ramirez MD [address] [place], [place] [address] Medicine Liliana Wright MD [address] [place] [address] [facility] [address] [place], [place] [address] 08/13/2022 Appointment Cardiology Dion Ramirez MD [address] [place], [place] [address] (Wo rk) documented as of this encounter Visit Diagnoses Not on filedocumented in this encounter Care Teams Natural Resources Technician Relationship Specialty Start Date End Date MD Jeanette Endocrinology, 08/29/21 MD Hermelinda Diabetes, and [address] [place] [address] [facility] Metabolism 101 [place] [address] Radha Reid Endocrinology 09/09/21 MD Hermelinda Provider [address] [facility] 101 [place], [place] [address] documented as of this encounter
--- OUTSIDE RECORDS SUMMARY | 2022-07-12 20:22 | XMS_ITS | Encounter Summary ---
:1995 Author Organization [facility] Address [address] [place] [address] Care Team Providers Name Role Phone Hermelinda Reid MD Unavailable [phone] Hermelinda Reid MD Unavailable [phone] Encounter Details Date Type Department Care Team Description 09/17/2021 Orders Only [facility] Valeria Bey MD Type 2 diabetes mellitus (H) (Primary Dx ); [facility] [address] High-risk , unspecified trimest er [place], [place] [address] [address] [address] [place] [address] Social History Tobacco Use Types Packs/Day Years Used Date Smoking Tobacco: Never Smokeless Tobacco: Never Alcohol Use Standard Drinks/Week Comments Not Currently 0 (1 standard drink = 0.6 oz pure alcoho l) Sex Assigned at Date Recorded Female 09/11/2021 7:15 AM SKIVER COUNTER COVID-19 Exposure Response Date Recorded In the last month, have you been in contact with No / Unsure 09/17/2021 3:01 PM SKIVER COUNTER someone who was confirmed or suspected to have Coronavirus / COVID-19? documented as of this encounter Miscellaneous Notes Addendum Note - Em Faircihld RN - 09/17/2021 2:53 PM SKIVER COUNTER Addended by: EM FAIRCHILD on: 09/20/2021 10:29 AM Modules accepted: Orders ER COUNTER documented in this encounter Plan of Treatment Upcoming Encounters Date Type Specialty Care Team Description 07/26/2022 Appointment Radiology. Dion Ramirez MD [address] [place] [address] Liliana Wright MD [address] [place] [address] [facility] 395 [place], [place] [address] 07/26/2022 Office Visit Maternal and Dion Ramirez MD [address] [place], [place] [address] Medicine Liliana Wright MD [address] [place] [address] [facility] 395 [place], [place] [address] 08/13/2022 Appointment Cardiology Dion Ramirez MD [address] [place], [place] [address] (Wo rk) documented as of this encounter Visit Diagnoses Diagnosis Type 2 diabetes mellitus (H) - Primary Type II or unspecified type diabetes jo-ann litus without mention of complication, not stated as uncontrolled High-risk , unspecified trimest er documented in this encounter Care Teams Humidifier Attendant Relationship Specialty Start Date End Date MD Jeanette Endocrinology, 08/29/21 MD Hermelinda Diabetes, and 420 [facility] SE [facility] Metabolism 101 [place], [place] [address] Radha Reid Endocrinology 09/09/21 MD Hermelnida Provider 420 [facility] SE [facility] 101 [place] [address] documented as of this encounter
--- OUTSIDE RECORDS SUMMARY | 2022-07-12 20:22 | XMS_ITS | Encounter Summary ---
:1995 Author Organization [facility] Address [address] [place] [address] Care Team Providers Name Role Phone Hermelinda Reid MD Unavailable [phone] Hermelinda Reid MD Unavailable [phone] Reason for Visit Reason Comments Care Encounter Details Date Type Department Care Team Description 09/10/2021 Office [facility] latha of high Visit Clinic [facility] in [address] third trimester [address] (Primary Dx) [place] [address] Social History Tobacco Use Types Packs/Day Years Used Date Smoking Tobacco: Never Smokeless Tobacco: Never Alcohol Use Standard Drinks/Week Comments Not Currently 0 (1 standard drink = 0.6 oz pure alcoho l) Sex Assigned at Date Recorded Female 09/11/2021 7:15 AM 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 documented as of this encounter Progress Notes Em Fairchild RN - 09/10/2021 2:15 PM CST NPN LISSA nurse visit done over the phone. Pt will be given NPN folder and book at her upcoming appt. Questions answered. Pt advised to call the clinic if she has any questions or concerns related to her . New visit scheduled on 09/20/[address] Torrez. Pt is Type 2 diabetic, poorly controlled. Seeing our diabetic educators and Endocrinology. Has h/o pre-eclampsia with first , delivered at 35 weeks due to this. Pt states at last OV with [facility] on 09/06 she had elevated BP reading of 141/81, states labs were done but none are in her chart. She did not have records from this visit. I reviewed s/s pre-eclampsia and encouraged her to call with concerns. Pt has upcoming MFM appt this Friday and NPN with OB the following week. 33w1d No results found for: PAP Patient supplied answers from flow sheet for: OB Questionnaire. Past Medical History Have you ever recieved care for your mental health? : No Have you ever been in a major accident or suffered serious trauma?: No Within the last year, has anyone hit, slapped, kicked or otherwise hurt you?: No In the last year, has anyone forced you to have sex when you didn't want to?: No Past Medical History 2 Have you ever received a blood transfusion?: No Would you accept a blood transfusion if was medically recommended?: Yes Does anyone in your home smoke?: (!) Yes ( smokes outside) Is your blood type Rh negative?: Unknown Have you ever breastfed?: No Have you been hospitalized for a nonsurgical reason excluding normal delivery?: No Have you ever had an abnormal pap smear?: No Past Medical History (Continued) Do you have a history of abnormalities of the uterus?: No Did your mother take DAGOBERTO or any other hormones when she was with you?: No Do you have any other problems we have not asked about which you feel may be important to this ?: No Em Fairchild RN CIATE PROFESSOR OF PHYSICS documented in this encounter Plan of Treatment Upcoming Encounters Date Type Specialty Care Team Description 07/26/2022 Appointment Radiology. Dion Ramirez MD [address] [place], [place] [address] Liliana Wright MD 420 [facility] 395 [place], [place] [address] 07/26/2022 Office Visit Maternal and Dion Ramirez MD [address] [place], [place] [address] Medicine Liliana Wright MD [address] [place] [address] [facility] [address] [place], [place] [address] 08/13/2022 Appointment Cardiology Dion Ramirez MD [address] [place] [address] (Wo rk) documented as of this encounter Procedures Procedure Name Priority Date/Time Associated Comments Diagnosis HEPATITIS C ANTIBODY Routine 03/27/2021 12:00 Res ults for this (EXTERNAL RESULT) AM CDT procedure are in the results section. HEPATITIS B SURFACE Routine 03/27/2021 12:00 Resu lts for this ANTIGEN (EXTERNAL AM CDT procedure are in RESULT) the results section. TREPONEMA PALLIDUM Routine 03/27/2021 12:00 Resul ts for this ANTIBODY (RPR) AM CDT procedure are in (EXTERNAL RESULT) the result s section. HIV 1&2 ANTIBODY Routine 03/27/2021 12:00 Results for this (EXTERNAL RESULT) AM CDT procedure are in the results section. RUBELLA ANTIBODY IGG Routine 03/27/2021 12:00 Res ults for this (EXTERNAL RESULT) AM CDT procedure are in the results section. ABO & RH (EXTERNAL Routine 03/27/2021 12:00 Resul ts for this RESULT) AM CDT procedure are i n the results section. CHLAMYDIA TRACHOMATIS Routine 03/27/2021 12:00 Re sults for this PCR (EXTERNAL RESULT) AM CDT proced ure are in the results section. documented in this encounter Results Treponema Pallidum Antibody (RPR) (External Result) (03/27/2021 12:00 AM CDT) [facility] Method Time Signature Treponema Nonreactive Nonreactive EXTERNAL LAB Palldum Antibody (RPR) (External) Specimen (Source) Anatomical Location Collection Method / Collectio n Time Received Time / Laterality Volume 03/27/2021 Patient Reported LAB - HIM EXTERNAL RESULT Performing Organization Address City/State/ZIP Code Phon e Number EXTERNAL LAB EXTERNAL LAB External Lab Rubella Antibody IgG (External Result) (03/27/2021 12:00 AM CDT) P athologist Signature Rubella Immune Nonreactive EXTERNAL LAB Antibody IgG (External) Specimen (Source) Anatomical Location Collection Method / Collectio n Time Received Time / Laterality Volume 03/27/2021 Patient Reported LAB - HIM EXTERNAL RESULT Performing Organization Address City/State/ZIP Code Phon e Number EXTERNAL LAB EXTERNAL LAB External Lab Chlamydia Trachomatis PCR (External Result) (03/27/2021 12:00 AM CDT) [facility] Method Time Signature Specimen Vag EXTERNAL LAB Description Chlamydia Negative Negative EXTERNAL LAB Trachomatis PCR Specimen (Source) Anatomical Location Collection Method / Collectio n Time Received Time / Laterality Volume 03/27/2021 Patient Reported LAB - HIM EXTERNAL RESULT Performing Organization Address City/[facility]/ZIP Code Phon e Number EXTERNAL LAB EXTERNAL LAB External Lab HIV-1 Antibody (External Result) (03/27/2021 12:00 AM CDT) [facility] Method Time Signature HIV 1&2 Negative Nonreactive EXTERNAL LAB Antibody (External) Specimen (Source) Anatomical Location Collection Method / Collectio n Time Received Time / Laterality Volume 03/27/2021 Patient Reported LAB - HIM EXTERNAL RESULT Performing Organization Address City/State/ZIP Code Phon e Number EXTERNAL LAB EXTERNAL LAB External Lab Hepatitis B Surface Antigen (External Result) (03/27/2021 12:00 AM CDT) [facility] Method Time Signature Hepatitis B Negative Nonreactive EXTERNAL LAB Surface Antigen (External) Specimen (Source) Anatomical Location Collection Method / Collectio n Time Received Time / Laterality Volume 03/27/2021 Patient Reported LAB - HIM EXTERNAL RESULT Performing Organization Address City/State/ZIP Code Phon e Number EXTERNAL LAB EXTERNAL LAB External Lab Hepatitis C Antibody (External Result) (03/27/2021 12:00 AM CDT) [facility] Method Time Signature Hepatitis C Negative Nonreactive EXTERNAL LAB Antibody (External) Specimen (Source) Anatomical Location Collection Method / Collectio n Time Received Time / Laterality Volume 03/27/2021 Patient Reported LAB - HIM EXTERNAL RESULT Performing Organization Address City/State/ZIP Code Phon e Number EXTERNAL LAB EXTERNAL LAB External Lab ABO & RH (External Result) (03/27/2021 12:00 AM CDT) P athologist Signature ABO (External) O EXTERNAL LAB Rh (External) POSITIVE EXTERNAL LAB Specimen (Source) Anatomical Location Collection Method / Collectio n Time Received Time / Laterality Volume 03/27/2021 Patient Reported LAB - HIM EXTERNAL RESULT Performing Organization Address City/State/ZIP Code Phon e Number EXTERNAL LAB EXTERNAL LAB External Lab documented in this encounter Visit Diagnoses Diagnosis Supervision of high risk in th ird trimester - Primary Unspecified high-risk documented in this encounter Care Teams Trekking Guide Relationship Specialty Start Date End Date MD Jeanette Endocrinology, 08/29/21 MD Hermelinda Diabetes, and [address] [place] [address] [facility] [place] Metabolism [address] [place] [address] Radha Reid Endocrinology 09/09/21 MD Hermelinda Provider 420 [facility] [address] [facility] [address] [place], [place] [address] documented as of this encounter
--- OUTSIDE RECORDS SUMMARY | 2022-07-12 20:22 | XMS_ITS | Encounter Summary ---
:1995 Author Organization [facility] Address [address] [place] [address] Care Team Providers Name Role Phone Hermelinda Reid MD Unavailable [phone] Hermelinda Reid MD Unavailable [phone] Reason for Referral Diagnostic Imaging Ultrasound (Routine) - Pending Review Specialty Diagnoses / Procedures Referred By Contact Refer red To Contact Diagnoses related condition, antepartum Teresa Procedures [facility] Hans Pillai MD [facility] [address] [place] [address] Referral ID Status Reason Start Date Expiration Date Visits V isits Requested Authorized [id number] Pending 09/02/2021 09/02/2022 1 1 Review K RAILROAD AND BUS MOTOR MECHANIC Reason for Visit Diagnostic Imaging Ultrasound (Routine) - Pending Review Specialty Diagnoses / Procedures Referred By Contact Refer red To Contact Diagnoses related condition, antepartum Teresa, Procedures [facility] Hans Pillai MD [facility] [address] [place] [address] Referral ID Status Reason Start Date Expiration Date Visits V isits Requested Authorized [id number] Pending 09/02/2021 09/02/2022 1 1 Review Encounter Details Date Type Department Care Team Description 09/14/2021 Hospital Encounter [facility] Freya Graham MD [address] [place] [address] related Maternal Lisandra Casanova MD [address] [place], [place] [address] condition, Medicine Center antepartum [place] [address] [place] [address] Social History Tobacco Use Types Packs/Day Years Used Date Smoking Tobacco: Never Smokeless Tobacco: Never Alcohol Use Standard Drinks/Week Comments Not Currently 0 (1 standard drink = 0.6 oz pure alcoho l) Sex Assigned at Date Recorded Female 09/11/2021 7:15 AM 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 documented as of this encounter Medications at Time of Discharge Medication Sig Dispensed Refills Start Date End Date acetaminophen (TYLENOL) Take 325-650 mg by 0 09/24/2021 325 MG tablet mouth every 6 hours as needed for mild pain aspirin (ASA) 81 MG Take 81 mg by mouth 0 09/24/2021 chewable tablet daily blood glucose (NO BRAND TEST THREE TIMES DAILY 0 05/16/2021 09/20/2021 SPECIFIED) test strip Blood Glucose 0 09/25/2020 09/20/2021 Monitoring Suppl (ASSURE PRO BLOOD GLUCOSE METER) GILDARDO calcium carbonate 1 chew tab 0 022 (TUMS) 500 MG chewable tablet insulin NPH (HUMULIN N Inject 40 Units 0 04/12/20 21 09/24/2021 VIAL) 100 UNIT/ML vial Subcutaneous every morning insulin regular Inject 22 Units 0 04/23/202109/11 (HUMULIN R VIAL) 100 Subcutaneous every UNIT/ML vial morning lancets 28G MISC As directed. Test 3 0 10/17/2020 09/20/2021 times per day. ondansetron Take 4 mg by mouth 0 12/25/202009/24 (ZOFRAN-ODT) 4 MG ODT every 8 hours as tab needed documented as of this encounter Miscellaneous Notes Result Encounter Note - Valeria Bey MD - 09/14/2021 11:59 PM CST MFM results and recommendations reviewed. Valeria Bey MD K [employer]ILROAD AND BUS MOTOR MECHANIC documented in this encounter Plan of Treatment Upcoming Encounters Date Type Specialty Care Team Description 07/26/2022 Appointment Radiology. Dion Ramirez MD [address] [place], [place] [address] Liliana Wright MD [address] [facility] [address] [place], [place] [address] 07/26/2022 Office Visit Maternal and Dion Ramirez MD [address] [place] [address] Medicine Liliana Wright MD [address] [address] 08/13/2022 Appointment Cardiology Dion Ramirez MD [address] [place], [place] [id number] (Wo rk) documented as of this encounter Procedures Procedure Name Priority Date/Time Associated Comments Diagnosis MFM US COMPREHENSIVE Routine 09/14/2021 9:43 AM rela sinan Results for this SINGLE TRUCK RAILROAD AND BUS MOTOR MECHANIC condition, procedure are i n antepartum the results section. documented in this encounter Results M US Comprehensive Single (09/14/2021 9:43 AM TRUCK RAILROAD AND BUS MOTOR MECHANIC) Anatomical Region Laterality Modality Ultrasound Specimen (Source) Anatomical Collection Method Collection Time Re ceived Time Location / / Volume Laterality 09/14/2021 8:47 AM TRUCK RAILROAD AND BUS MOTOR MECHANIC Impressions 09/14/2021 2:34 PM TRUCK RAILROAD AND BUS MOTOR MECHANIC IMPRESSION REVISED REPORT 1) Wolfe intrauterine at 3 3w 5d gestational age. 2) None of the anomalies commonly detect ed by ultrasound were evident in the detailed anatomic survey described above, although evaluation of anatomy was suboptimal as noted above. 3) Growth parameters and estimated weight were consistent with an appropriate for gestation age pattern of growth. 4) The amniotic fluid volume appeared no rmal. 5) The BPP is reassuring. Narrative 09/14/2021 2:34 PM TRUCK RAILROAD AND BUS MOTOR MECHANIC Comprehensive Pat. Name: BEATRIZ APARICIO Study Date: 09/14 8:47am Pat. NO: [id number] Referring ??: IDALMIS BEY Site: [facility] Vehicle Mechanic: Kylah Condon RDMS : 1995 Age: 26 INDICATION Poorly controlled diabetes METHOD Transabdominal ultrasound examination. V iew: Sufficient Wolfe . Number of fetuses: 1 DATING ? Date ?Details ?Gest. age ?PAYTON LMP ?01/21/2021 ?Cycle: regular cycle ?33 w + 5 d ? 10/28/2021 U/S ? 09/14/2021 ?based upon AC, BPD, Femur, HC ? 34 w + 3 d ? 10/23/2021 Assigned dating ?Dating performed on 09/14/2021, based on the LMP ?33 w + 5 d ? 10/28/2021 GENERAL EVALUATION Cardiac activity present. FHR 155 bpm. movements present. Presentation cephalic. Placenta anterior, no previa > 2 cm from internal os . Umbilical cord 3 vessel cord. Amniotic fluid Amount of AF: normal. MVP 7.0 cm. BIOMETRY Main Biometry: BPD ?84.6 ?mm ? 34w 1d ?Hadbetzy HUSSEIN ?109.9 ?mm ? 33w 0d ? Nicolaides HC ?310.3 ?mm ?34w 5d ?Hadlock Cerebellum tr ?43.4 ? mm ?37w 3d ?Nicolaides AC ?313.6 ?mm ?35w 2d ?90% ?Hadlock Femur ?64.6 ? mm ?33w 2d ?Hadlock Humerus ?56.2 ?mm ? 32w 5d ?Aman Weight Calculation: EFW ? 2,465 ?g ? 69% ?Hadlock EFW (lb,oz) ? 5 lb 7 ?oz EFW by ?Hadlock ([id number]) Head / Face / Neck Biometry: Landscape Designer ? 3.9 ? mm CM ?8.3 ? mm ANATOMY The following structures appear normal: Head / Neck ? Cranium. Head size. Head shape. Lateral ventricles. Choroid plexus. Midline falx. Cavum septi pellucidi. Cerebellum. Cisterna magna. ? Parenchyma. Thalami. Vermis. ? Neck. Heart / Thorax ?RVOT view. LVOT view. Situs. Aortic arch view. Cardiac position. Cardiac size. Cardiac rhythm. ? Right lung. Left lung. Diaphragm. Abdomen ? Abdominal wall. Cord insertion. Stomach. Kidneys. Bladder. Liver. Bowel. Genitals. Spine ?Cervical spine. Thoracic spine. Lumbar spine. Sacral spine. Extremities / Skeleton ?Rig ht arm. Right hand. Left arm. Left hand. Right leg. Right foot. Left leg. The following structures could not be ad equately visualized: Face ? Lips. Orbits. Lens. Heart / Thorax ?4-chamber view. 3-vessel view. 7-xbejai-vagwbow view. Extremities / Skeleton ?Lef t foot. The following structures could not be vi sualized: Face ? Profile. Nose. Heart / Thorax ?Bicaval view. Ductal arch view. Superior vena cava. Inferior vena cava. The following structures were documented previously: Face ? Maxilla. Mandible. Gender: male. MATERNAL STRUCTURES Cervix ?Visualized ? Appearance: Appears Closed ? Approach - Transabdominal: Cervical length 36.0 mm Right Ovary ?Not examined Left Ovary ?Not examined BIOPHYSICAL PROFILE 2: breathing movements 2: Gross body movements 2: tone 2: Amniotic fluid volume 8/8 Biophysical profile score RECOMMENDATION We discussed the findings on today's ulaixa rasound with the patient. [facility] BPP and a repeat assessment of growth has also been scheduled here in 3 weeks. Timing of delivery dependent on degree of glucose control and if Beatriz's DM continues to be poorly controlled, delivery is recommended at 36-38 weeks. She is planning transfer of care to [facility] Chief Clerk in anticipation of delivery at [facility]. Return to primary provider for continued care. Thank-you for the opportunity to partici jameson in the care of this patient. If you have questions regarding today's evaluation or if we can be of further service, please contact the Maternal- Medicine Center. anomalies may be present but not detected ADDENDUM: Given advanced gestational age, recommen d post-lore echo (non-emergent) prior to discharge home in lieu of echo. Procedure Note Lisandra Casanova MD - 09/18/2021Formatt ing of this note might be different from the original. Comprehensive Pat. Name:Tamera APARICIO Date:09/14/19 8:47am Pat. NO: [id number] MD:VALERIA CABALLERO [facility] Saavedra :1995Age:26 INDICATION Poorly controlled diabetes METHOD Transabdominal ultrasound examination. V iew: Sufficient Wolfe . Number of fetuses: 1 DATING Date Details Gest. age PAYTON LMP 01/21/2021 Cycle: regular cycle 33 w + 5 d 10/28/2021 U/S 09/14/2021 based upon AC, BPD, Femur, HC 34 w + 3 d 10/23/2021 Assigned dating Dating performed on 09/14, based on the LMP 33 w + 5 d 10/28/2021 GENERAL EVALUATION Cardiac activity present. FHR 155 bpm. movements present. Presentation cephalic. Placenta anterior, no previa > 2 cm from internal os . Umbilical cord 3 vessel cord. Amniotic fluid Amount of AF: normal. MVP 7.0 cm. BIOMETRY Main Biometry: BPD 84.6 mm 34w 1d Hadlock OFD 109.9 mm 33w 0d Nicolaides HC 310.3 mm 34w 5d Hadlock Cerebellum tr 43.4 mm 37w 3d Nicolaides AC 313.6 mm 35w 2d 90% Hadlock Femur 64.6 mm 33w 2d Hadlock Humerus 56.2 mm 32w 5d Aman Weight Calculation: EFW 2,465 g 69% Hadlock EFW (lb,oz) 5 lb 7 oz EFW by Hadlock ([id number]-FL) Head / Face / Neck Biometry: Landscape Designer 3.9 mm CM 8.3 mm ANATOMY The following structures appear normal: Head / Neck Cranium. Head size. Head sha pe. Lateral ventricles. Choroid plexus. Midline falx. Cavum septi pellucidi. Cerebellum. Cisterna magna. Parenchyma. Thalami. Vermis. Neck. Heart / Thorax RVOT view. LVOT view. Sit us. Aortic arch view. Cardiac position. Cardiac size. Cardiac rhythm. Right lung. Left lung. Diaphragm. Abdomen Abdominal wall. Cord insertion. Stomach. Kidneys. Bladder. Liver. Bowel. Genitals. Spine Cervical spine. Thoracic spine. Pat mbar spine. Sacral spine. Extremities / Skeleton Right arm. Right hand. Left arm. Left hand. Right leg. Right foot. Left leg. The following structures could not be ad equately visualized: Face Lips. Orbits. Lens. Heart / Thorax 4-chamber view. 3-vessel view. 2-bhujzk-hkrflrv view. Extremities / Skeleton Left foot. The following structures could not be vi sualized: Face Profile. Nose. Heart / Thorax Bicaval view. Ductal arch view. Superior vena cava. Inferior vena cava. The following structures were documented previously: Face Maxilla. Mandible. Gender: male. MATERNAL STRUCTURES Cervix Visualized Appearance: Appears Closed Approach - Transabdominal: Cervical hanna gth 36.0 mm Right Ovary Not examined Left Ovary Not examined BIOPHYSICAL PROFILE 2: breathing movements 2: Gross body movements 2: tone 2: Amniotic fluid volume 8/8 Biophysical profile score RECOMMENDATION We discussed the findings on today's ul rasound with the patient. Continue surveillance with twi ce weekly BPP and a repeat assessment of growth has also been scheduled here in 3 weeks. Timing of delivery dependent on degree of glucose control and if Beatriz's DM continues to be poorly controlled, delivery is recommended at 36-38 weeks. She is planning transfer of care to [facility] Chief Clerk in anticipation of delivery at [facility]. Return to primary provider for continued care. Thank-you for the opportunity to partici trnio in the care of this patient. If you have questions regarding today's evaluation or if we can be of further service, please contact the Maternal- Medicine Center. anomalies may be present but not detected ADDENDUM: Given advanced gestational age, recommen d post-lore echo (non-emergent) prior to discharge home in lieu of echo. IMPRESSION REVISED REPORT 1) Wolfe intrauterine at 3 3w 5d gestational age. 2) None of the anomalies commonly detect ed by ultrasound were evident in the detailed anatomic survey described above, although evaluation of anatomy was suboptimal as noted above. 3) Growth parameters and estimated weight were consistent with an appropriate for gestation age pattern of growth. 4) The amniotic fluid volume appeared no rmal. 5) The BPP is reassuring. Freya Moore MD [facility] US ORDERABLES documented in this encounter Visit Diagnoses Diagnosis related condition, antepartum documented in this encounter Care Teams Tool Filer Hand Relationship Specialty Start Date End Date MD Jeanette Endocrinology, 08/29/21 MD Hermelinda Diabetes, and [address] [facility] Metabolism [address] [place] [address] Radha Reid Endocrinology 09/09/21 MD Hermelinda Provider [address] [id number] documented as of this encounter
--- OUTSIDE RECORDS SUMMARY | 2022-07-12 20:22 | XMS_ITS | Encounter Summary ---
:1995 Author Organization [facility] Address [address] [facility] [place] [address] Care Team Providers Name Role Phone Hermelinda Reid MD Unavailable [phone] Hermelinda Reid MD Unavailable Reason for Referral Diagnostic Imaging Ultrasound (Routine) - Pending Review Specialty Diagnoses / Procedures Referred By Contact Refer red To Contact Diagnoses with type 2 diabetes mellitus in third trimester Rh Maternal Med Procedures Maternal BPP Single [address] [place] [address] Referral ID Status Reason Start Date Expiration Date Visits V isits Requested Authorized [id number] Pending 09/14/2021 09/14/2022 1 1 Review UATE RECRUITER Reason for Visit Reason Comments Ultrasound L2- Encounter Details Date Type Department Care Team Description 09/14/2021 Office Visit [facility] Fryea Krishnamurthy MD [address] [place] [address] with type 2 Maternal Lisandra Casanova MD [address] [place] [address] [address] [place], [place] [phone] diabetes mellitus in Medicine [facility] (Primary Dx) [address] [place] [address] Social History Tobacco Use Types Packs/Day Years Used Date Smoking Tobacco: Never Smokeless Tobacco: Never Alcohol Use Standard Drinks/Week Comments Not Currently 0 (1 standard drink = 0.6 oz pure alcoho l) Sex Assigned at Date Recorded Female 09/11/2021 7:15 AM GRADUATE RECRUITER COVID-19 Exposure Response Date Recorded In the last month, have you been in contact with No / Unsure 09/14/2021 8:37 AM GRADUATE RECRUITER someone who was confirmed or suspected to have Coronavirus / COVID-19? documented as of this encounter Last Filed Vital Signs Vital Sign Reading Time Taken Comments Blood Pressure 115/83 09/14/2021 10:00 AM GRADUATE RECRUITER Pulse - - Temperature - - Respiratory Rate - - Oxygen Saturation - - Inhaled Oxygen Concentration - - Weight - - Height - - Body Mass Index - - documented in this encounter Progress Notes Lisandra Casanova MD - 09/14/2021 9:15 AM CST Please see Imaging tab under Chart Review for details of today's visit. Lisandra Casanova UATE RECRUITER documented in this encounter Plan of Treatment Upcoming Encounters Date Type Specialty Care Team Description 07/26/2022 Appointment Radiology. Dion Ramirez MD [address] [place], [place] [address] Liliana Wright MD [address] [address] 07/26/2022 Office Visit Maternal and Dion Ramirez MD [address] [place], [place] [address] Medicine Liliana Wright MD [address] [address] 08/13/2022 Appointment Cardiology Dion Ramirez MD [address] [place] [address] [phone] (Wo rk) documented as of this encounter Results Maternal BPP Single (09/17/2021 3:23 PM GRADUATE RECRUITER) Anatomical Region Laterality Modality Ultrasound Specimen (Source) Anatomical Collection Method Collection Time Re ceived Time Location / / Volume Laterality 09/17/2021 3:09 PM GRADUATE RECRUITER Impressions 09/17/2021 4:18 PM GRADUATE RECRUITER IMPRESSION 1. Wolfe intrauterine at 3 4w1d gestational age here for testing. 2. The fetus is in variable presentation . The amniotic fluid volume is normal. 3. The BPP is 8/8. Narrative 09/17/2021 4:18 PM GRADUATE RECRUITER BPP Pat. Name: BEATRIZ APARICIO Study Date: 09/17 3:09pm Pat. NO: [id number] Referring ??MD: LASHAUN SWARTZ Site: [facility] Hot Room Attendant: Sara mcgraw RDMS : 1995 Age: 26 INDICATION Poorly controlled diabetes METHOD Transabdominal ultrasound examination. V iew: Sufficient Wolfe . Number of fetuses: 1 DATING ? Date ?Details ?Gest. age ?PAYTON LMP ?01/21/2021 ?Cycle: regular cycle ?34 w + 1 d ? 10/28/2021 Assigned dating ?Dating performed on 09/17/2021, based on the LMP ?34 w + 1 d ? 10/28/2021 GENERAL EVALUATION Cardiac activity present. FHR 152 bpm. movements visualized. Presentation Variable . Placenta anterior, no previa > 2 cm from internal os . Umbilical cord previously studied. AMNIOTIC FLUID ASSESSMENT Amount of AF: normal MVP 8.5 cm. BOB 17.5 cm. Q1 8.1 cm, Q2 0 .0 cm, Q3 6.1 cm, Q4 3.3 cm BIOPHYSICAL PROFILE 2: breathing movements 2: Gross body movements 2: tone 2: Amniotic fluid volume 8/8 Biophysical profile score Interpretation: normal RECOMMENDATION Thank-you for referring your patient for testing. We discussed the results of the ultrasou nd with the patient. Continue twice weeekly surveil lona due to T2DM in addition to serial evaluation of growth as previously recommended. Return to primary provider for continued care. If you have questions regarding today's evaluation or if we can be of further service, please contact the Maternal- Medicine Center. anomalies may be present but not detected Procedure Note Lurdes Echeverria MD - 09/17/2021Formattin g of this note might be different from the original. BPP Pat. Name:Tamera APARICIO Date:09/17/19 3:09pm Pat. NO: [id number] :FREYA SWARTZ [facility]Sara Browning RDMS :1995Age:26 INDICATION Poorly controlled diabetes METHOD Transabdominal ultrasound examination. V iew: Sufficient Wolfe . Number of fetuses: 1 DATING Date Details Gest. age PAYTON LMP 01/21/2021 Cycle: regular cycle 34 w + 1 d 10/28/2021 Assigned dating Dating performed on 09/17, based on the LMP 34 w + 1 d 10/28/2021 GENERAL EVALUATION Cardiac activity present. FHR 152 bpm. movements visualized. Presentation Variable . Placenta anterior, no previa > 2 cm from internal os . Umbilical cord previously studied. AMNIOTIC FLUID ASSESSMENT Amount of AF: normal MVP 8.5 cm. BOB 17.5 cm. Q1 8.1 cm, Q2 0 .0 cm, Q3 6.1 cm, Q4 3.3 cm BIOPHYSICAL PROFILE 2: breathing movements 2: Gross body movements 2: tone 2: Amniotic fluid volume 8/8 Biophysical profile score Interpretation: normal RECOMMENDATION Thank-you for referring your patient for testing. We discussed the results of the ultrasou nd with the patient. Continue twice weeekly surveil lona due to T2DM in addition to serial evaluation of growth as previously recommended. Return to primary provider for continued care. If you have questions regarding today's evaluation or if we can be of further service, please contact the Maternal- Medicine Center. anomalies may be present but not detected IMPRESSION 1. Wolfe intrauterine at 3 4w1d gestational age here for testing. 2. The fetus is in variable presentation . The amniotic fluid volume is normal. 3. The BPP is 8/8. Lisandra Casanova MD [facility] US ORDERABLES documented in this encounter Visit Diagnoses Diagnosis with type 2 diabetes mellitus in third trimester - Primary with type 2 diabetes mellitus in third trimester documented in this encounter Care Teams Oracle Database Manager Relationship Specialty Start Date End Date MD Jeanette Endocrinology, 08/29/21 MD Hermelinda Diabetes, and [address] [facility] [address] [facility] Metabolism [address] [place] [address] Radha Reid Endocrinology 09/09/21 MD Hermelinda Provider [address] [facility] [address] [address] documented as of this encounter
--- OUTSIDE RECORDS SUMMARY | 2022-07-12 20:22 | XMS_ITS | Encounter Summary ---
:1995 Author Organization [facility] Address [address] [place] [address] Care Team Providers Name Role Phone Hermelinda Reid MD Unavailable [phone] Hermelinda Reid MD Unavailable [phone] Encounter Details Date Type Department Care Team Description 09/14/2021 Travel Social History Tobacco Use Types Packs/Day Years Used Date Smoking Tobacco: Never Smokeless Tobacco: Never Alcohol Use Standard Drinks/Week Comments Not Currently 0 (1 standard drink = 0.6 oz pure alcoho l) Sex Assigned at Date Recorded Female 09/11/2021 7:15 AM NEUROSURGICAL PHYSICIAN ASSISTANT COVID-19 Exposure Response Date Recorded In the last month, have you been in contact with No / Unsure 09/14/2021 8:37 AM NEUROSURGICAL PHYSICIAN ASSISTANT someone who was confirmed or suspected to have Coronavirus / COVID-19? documented as of this encounter Plan of Treatment Upcoming Encounters Date Type Specialty Care Team Description 07/26/2022 Appointment Radiology. Dion Ramirez MD [address] [place], [place] [address] Liliana Wright MD 420 [facility] [address] [place], [place] [address] 07/26/2022 Office Visit Maternal and Dion Ramirez MD [address] [place], [place] [address] Medicine Liliana Wright MD [address] [facility] [address] [place], [place] [address] 08/13/2022 Appointment Cardiology Dion Ramirez MD [address] [place], [place] [address] (Wo rk) documented as of this encounter Visit Diagnoses Not on filedocumented in this encounter Care Teams Cat Operator Relationship Specialty Start Date End Date MD Jeanette Endocrinology, 08/29/21 MD Hermelinda Diabetes, and [address] [facility] Metabolism [address] [place] [address] Radha Reid Endocrinology 09/09/21 MD Hermelinda Provider [facility] [address] [place], [place] [address] documented as of this encounter
--- OUTSIDE RECORDS SUMMARY | 2022-07-12 20:22 | XMS_ITS | Encounter Summary ---
:1995 Author Organization [facility] Address [address] [place] [address] Care Team Providers Name Role Phone Hermelinda Reid MD Unavailable [phone] Hermelinda Reid MD Unavailable [phone] Reason for Visit Reason Onset Date Comments *-*INCOMING RECORDS*-* 09/10/2021 Encounter Details Date Type Department Care Team Description 09/10/2021 Telephone [facility] Women's None *- *INCOMING RECORDS*-* Clinic [address] [facility] [address] [place] [address] Social History Tobacco Use Types Packs/Day Years Used Date Smoking Tobacco: Never Smokeless Tobacco: Never Alcohol Use Standard Drinks/Week Comments Not Currently 0 (1 standard drink = 0.6 oz pure alcoho l) Sex Assigned at Date Recorded Female 09/11/2021 7:15 AM TEACHER VISUALLY IMPAIRED COVID-19 Exposure Response Date Recorded In the last month, have you been in contact with No / Unsure 09/14/2021 8:37 AM TEACHER VISUALLY IMPAIRED someone who was confirmed or suspected to have Coronavirus / COVID-19? documented as of this encounter Miscellaneous Notes Telephone Encounter - Em Fairchild RN - 09/14/2021 9:53 AM CST Copy of updated records placed in Dr Torrez's inbasket. Em Fairchild RN HER VISUALLY IMPAIRED Telephone Encounter - Alisia Sullivan - 09/10/2021 3:39 PM CST Received previous records from [facility]. Put a copy on tirage desk (Em). Sent originals to scanning. HER VISUALLY IMPAIRED documented in this encounter Plan of Treatment Upcoming Encounters Date Type Specialty Care Team Description 07/26/2022 Appointment Radiology. Dion Ramirez MD [address] [place] [address] Liliana Wright MD [address] [facility] [address] [place], [place] [address] 07/26/2022 Office Visit Maternal and Doin Ramirez MD [address] [place], [place] [address] [phone] Liliana Wright MD [address] [facility] [address] [place], [place] [address] 08/13/2022 Appointment Cardiology Dion Ramirez MD [address] [place], [place] [address] (Wo rk) documented as of this encounter Visit Diagnoses Not on filedocumented in this encounter Care Teams Hat Braider Relationship Specialty Start Date End Date MD Jeanette Endocrinology, 08/29/21 MD Hermelinda Diabetes, and [address] [facility] Metabolism [address] [place], [place] [address] Radha Reid Endocrinology 09/09/21 MD Hermelinda Provider [address] [facility] [address] [place], [place] [address] documented as of this encounter
--- OUTSIDE RECORDS SUMMARY | 2022-07-12 20:22 | XMS_ITS | Encounter Summary ---
:1995 Author Organization [place] Address [address] [place] [address] Care Team Providers Name Role Phone Hermelinda Reid MD Unavailable [phone] Hermelinda Reid MD Unavailable [phone] Encounter Details Date Type Department Care Team Description 09/18/2021 Telephone [facility] Maternal Monica Velazquez RN [facility] [address] [facility] [address] [place] [address] Social History Tobacco Use Types Packs/Day Years Used Date Smoking Tobacco: Never Smokeless Tobacco: Never Alcohol Use Standard Drinks/Week Comments Not Currently 0 (1 standard drink = 0.6 oz pure alcoho l) Sex Assigned at Date Recorded Female 09/11/2021 7:15 AM NOUGAT CUTTER MACHINE COVID-19 Exposure Response Date Recorded In the last month, have you been in contact with No / Unsure 09/17/2021 3:01 PM NOUGAT CUTTER MACHINE someone who was confirmed or suspected to have Coronavirus / COVID-19? documented as of this encounter Miscellaneous Notes Telephone Encounter - Mary Velazquez RN - 09/18/2021 4:23 PM CST Spoke with Dr. Bey this afternoon regarding echo order and discussed that I would touch basewith Dr. Casanova regarding recommendations. Updated Zayda at [facility] [address] Bey to review ultrasound addendum from 09/14/21. AT CUTTER MACHINE documented in this encounter Plan of Treatment Upcoming Encounters Date Type Specialty Care Team Description 07/26/2022 Appointment Radiology. Dion Ramirez MD [address] [place], [place] [address] Liliana Wright MD [address] [facility] 395 [place], [place] [address] 07/26/2022 Office Visit Maternal and Dion Ramirez MD [address] [place], [place] [address] Medicine Liliana Wright MD 420 [facility] [address] [place], [place] [address] 08/13/2022 Appointment Cardiology Dion Ramirez MD [address] [place], [place] [address] (Wo rk) documented as of this encounter Visit Diagnoses Not on filedocumented in this encounter Care Teams Senior Architectural Designer Relationship Specialty Start Date End Date MD Jeanette Endocrinology, 08/29/21 MD Hermelinda Diabetes, and [address] [facility] Metabolism 101 [place], [place] [address] Radha Reid Endocrinology 09/09/21 MD Hermelinda Provider [address] [facility] [address] [place], [place] [address] documented as of this encounter
--- OUTSIDE RECORDS SUMMARY | 2022-07-12 20:22 | XMS_ITS | Encounter Summary ---
:1995 Author Organization [place] Address [address] [place] [address] Care Team Providers Name Role Phone Hermelinda Reid MD Unavailable [phone] Hermelinda Reid MD Unavailable Reason for Visit Reason Onset Date Comments Symptoms 09/19/2021 Encounter Details Date Type Department Care Team Description 09/19/2021 Telephone [facility] Women's [facility] Son aq Symptoms Clinic Macie Archer MD [address] [facility] [address] [place] [address] [place] [address] [phone] Social History Tobacco Use Types Packs/Day Years Used Date Smoking Tobacco: Never Smokeless Tobacco: Never Alcohol Use Standard Drinks/Week Comments Not Currently 0 (1 standard drink = 0.6 oz pure alcoho l) Sex Assigned at Date Recorded Female 09/11/2021 7:15 AM CONSTRUCTION PROJECT ENGINEER COVID-19 Exposure Response Date Recorded In the last month, have you been in contact with No / Unsure 09/17/2021 3:01 PM CONSTRUCTION PROJECT ENGINEER someone who was confirmed or suspected to have Coronavirus / COVID-19? documented as of this encounter Miscellaneous Notes Telephone Encounter - Erasmo Valdez MD - 09/19/2021 4:51 PM CST Noted. TRUCTION PROJECT ENGINEER Telephone Encounter - Em Fairchild RN - 09/19/2021 4:19 PM CST Called pt, she states from her knees to her thighs along with her fingers and toes are very swollen.Significant increase in the last day. Has h/o pre-eclampsia and delivery with previous . Headache started last evening as well. Has not taken anything for it. Notes sharp pain under her belly. Unsure if she has felt normal movement. Has some ctx/cramping now, reports pelvic pressure. Notes blood glucose is better not in the 300's lately. Does not have a recent reading. Advised pt to go into L&D for eval at [facility]. Notified L&D and they will let Dr Valdez know who is there as well. Em Fairchild RN TRUCTION PROJECT ENGINEER Telephone Encounter - Ritu Isaac - 09/19/2021 4:08 PM CST This WAGON DRILL OPERATOR is calling because she has a LISSA appt scheduled with Dr. Torrez tomorrow. She is experiencing swelling today and really needs someone to call her back today, because this happened with her other baby TRUCTION PROJECT ENGINEER documented in this encounter Plan of Treatment Upcoming Encounters Date Type Specialty Care Team Description 07/26/2022 Appointment Radiology. Dion Ramirez MD [address] [place], [place] [address] Liliana Wright MD [address] [id number] 07/26/2022 Office Visit Maternal and Dion Ramirez MD [address] [place], [place] [address] Medicine Liliana Wright MD [address] [address] 08/13/2022 Appointment Cardiology Dion Ramirez MD [address] [place], [place] [phone] (Wo rk) documented as of this encounter Visit Diagnoses Not on filedocumented in this encounter Care Teams Bonding Machine Operator Relationship Specialty Start Date End Date MD Jeanette Endocrinology, 08/29/21 MD Hermelinda Diabetes, and [address] [place] [address] [facility] Metabolism 101 [place], [place] [phone] Radha Reid Endocrinology 09/09/21 MD Hermelinda Provider [address] [facility] 101 [place], [place] [phone] documented as of this encounter
--- OUTSIDE RECORDS SUMMARY | 2022-07-12 20:22 | XMS_ITS | Encounter Summary ---
:1995 Author Organization [facility] Address [address] [place] [address] Care Team Providers Name Role Phone Hermelinda Reid MD Unavailable [phone] Hermelinda Reid MD Unavailable [phone] Reason for Visit Reason Onset Date Comments Care 09/10/2021 Encounter Details Date Type Department Care Team Description 09/10/2021 Telephone [facility] [place] Archer MD [address] [facility] [address] [place] [address] [place] [address] [phone] Social History Tobacco Use Types Packs/Day Years Used Date Smoking Tobacco: Never Smokeless Tobacco: Never Alcohol Use Standard Drinks/Week Comments Not Currently 0 (1 standard drink = 0.6 oz pure alcoho l) Sex Assigned at Date Recorded Female 09/11/2021 7:15 AM WELLNESS ASSISTANT COVID-19 Exposure Response Date Recorded In the last month, have you been in contact with No / Unsure 09/14/2021 8:37 AM WELLNESS ASSISTANT someone who was confirmed or suspected to have Coronavirus / COVID-19? documented as of this encounter Miscellaneous Notes Telephone Encounter - Em Fairchild RN - 09/12/2021 11:07 AM CST Copied from providers routing comment; I think the scheduled appointments are OK. Dr. Dunn NESS ASSISTANT Telephone Encounter - Em Fairchild RN - 09/12/2021 9:50 AM CST I did not realize Dr Torrez was out this week. Forwarding previous message on to provider insurance operations rep to review. Em Fairchild RN NESS ASSISTANT Telephone Encounter - Em Fairchild RN - 09/10/2021 3:07 PM CST I did this pt's LISSA NPN today. She is high risk, Type 2 Dm-poorly controlled. Set up with us for diabetic ed. H/o pre-eclampsia with first , delivered at 35 weeks via while IOL was attempted. Has MFM appt this Friday 09/15 Has NPN with you 09/20 Last OV with previous clinic 09/06-she states her BP was elevated at 141/81, they did labs and were normal. I have requested these records be sent to us since they were not included in her initial transfer records. I reviewed s/s preeclampsia and when to call with concerns. Do you think she should be seen any sooner than scheduled? I could not find any 30 minutes slots on any providers schedule to move her to be seen sooner. Em Fairchild RN NESS ASSISTANT documented in this encounter Plan of Treatment Upcoming Encounters Date Type Specialty Care Team Description 07/26/2022 Appointment Radiology. Dion Ramirez MD [address] [place] [address] Liliana Wright MD 420 [facility] 395 [place], [place] [address] 07/26/2022 Office Visit Maternal and Dion Ramirez MD [address] [place] [address] Medicine Liliana Wright MD [address] [facility] [address] [place], [place] [address] 08/13/2022 Appointment Cardiology Dion Ramirez MD [address] [place] [address] (Wo rk) documented as of this encounter Visit Diagnoses Not on filedocumented in this encounter Care Teams Brim Stretcher Relationship Specialty Start Date End Date MD Jeanette Endocrinology, 08/29/21 MD Hermelinda Diabetes, and [address] [place] [address] [facility] Metabolism 101 [place] [address] Radha Reid Endocrinology 09/09/21 MD Hermelinda Provider [address] [facility] 101 [place], [place] [phone] documented as of this encounter
--- OUTSIDE RECORDS SUMMARY | 2022-07-12 20:22 | XMS_ITS | Encounter Summary ---
:1994 Author Organization [facility] Address [address] [place] [address] Care Team Providers Name Role Phone Hermelinda Reid MD Unavailable [phone] Reason for Visit Reason Onset Date Comments *-*INCOMING RECORDS*-* 08/31/2021 Encounter Details Date Type Department Care Team Description 08/31/2021 PRE VISIT [facility] Jeanette, *-*[facility] Endocrinology Clinic MD Hermelinda RECORDS*-* [address] [phone] Social History Tobacco Use Types Packs/Day Years Used Date Smoking Tobacco: Never Smokeless Tobacco: Never Alcohol Use Standard Drinks/Week Comments Not Currently 0 (1 standard drink = 0.6 oz pure alcoho l) Sex Assigned at Date Recorded Female 09/11/2021 7:15 AM LOGGING SPECIALIST COVID-19 Exposure Response Date Recorded In the last month, have you been in contact with No / Unsure 08/26/2021 1:50 PM LOGGING SPECIALIST someone who was confirmed or suspected to have Coronavirus / COVID-19? documented as of this encounter Miscellaneous Notes Telephone Encounter - Dougie Martino - 08/29/2021 2:23 PM CST RECORDS RECEIVED FROM: internal /ce DATE RECEIVED: 08.31.21 NOTES (FOR ALL VISITS) STATUS DETAILS OFFICE NOTES from referring provider internal Dr. Valeria Bey OFFICE NOTES from other specialist na ED NOTES na OPERATIVE REPORT (thyroid, pituitary, adrenal, parathyroid) na MEDICATION LIST internal IMAGING DEXASCAN na MRI (BRAIN) na XR (Chest) na CT (HEAD/NECK/CHEST/ABDOMEN) na NUCLEAR na ULTRASOUND (HEAD/NECK) na LABS DIABETES: HBGA1C, CREATININE, FASTING LIPIDS, MICROALBUMIN URINE, POTASSIUM, TSH, T4 THYROID: TSH, T4, CBC, THYRODLONULIN, TOTAL T3, FREE T4, CALCITONIN, CEA Internal /ce Glucose by meter- 1.16.22 Cbc- 11.22.21 MICROALBUMIN 3.1.21 VITAMIN D 25 (DEFICIENCY- 3.26.21 TSH/T4- 2.15.21 ING SPECIALIST documented in this encounter Plan of Treatment Upcoming Encounters Date Type Specialty Care Team Description 07/26/2022 Appointment Radiology. Dion Ramirez MD [address] [place], [place] [address] Liliana Wright MD 420 [facility] 395 [place], [place] [address] 07/26/2022 Office Visit Maternal and Dion Ramirez MD [address] [place], [place] [address] Medicine Liliana Wright MD 420 [facility] 395 [place], [place] [address] 08/13/2022 Appointment Cardiology Dion Ramirez MD [address] [place], [place] [address] (Wo rk) documented as of this encounter Visit Diagnoses Not on filedocumented in this encounter Care Teams Rubber Goods Inspector Relationship Specialty Start Date End Date Hermelinda Reid MD Endocrinology, Diabetes, MD and Metabolism [address] [facility] 101 [place], [place] [address] documented as of this encounter
--- OUTSIDE RECORDS SUMMARY | 2022-07-12 20:22 | XMS_ITS | Encounter Summary ---
:1994 Author Organization [place] Address [address] [facility] [place] [address] Care Team Providers Name Role Phone Hermelinda Reid MD Unavailable [phone] Reason for Visit Reason Comments Ultrasound Comp-DM2 poorly controlled Encounter Details Date Type Department Care Team Description 09/06/2021 PRE VISIT [facility] [place], Ultrasound (Comp-DM2 Maternal Medicine ELVIS Dove poor ly controlled) [place] [address] [facility] [address] [place] [address] Social History Tobacco Use Types Packs/Day Years Used Date Smoking Tobacco: Never Smokeless Tobacco: Never Alcohol Use Standard Drinks/Week Comments Not Currently 0 (1 standard drink = 0.6 oz pure alcoho l) Sex Assigned at Date Recorded Female 09/11/2021 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 documented as of this encounter Plan of Treatment Upcoming Encounters Date Type Specialty Care Team Description 07/26/2022 Appointment Radiology. Dion Ramirez MD [address] [facility] [address] [place], [place] [address] Liliana Wright MD 420 [facility] 395 [place], [place] [address] 07/26/2022 Office Visit Maternal and Dion Ramirez MD [address] [place], [place] [address] Medicine Liliana Wright MD [address] [place] [address] [facility] 395 [place], [place] [address] 08/13/2022 Appointment Cardiology Dion Ramirez MD [address] [place], [place] [phone] (Wo rk) documented as of this encounter Visit Diagnoses Not on filedocumented in this encounter Care Teams Design Printing Machine Setter Relationship Specialty Start Date End Date Hermelinda Reid MD Endocrinology, Diabetes, MD and Metabolism 420 [facility] 101 [place], [place] [address] documented as of this encounter
--- OUTSIDE RECORDS SUMMARY | 2022-07-12 20:22 | XMS_ITS | Encounter Summary ---
:1995 Author Organization [place] Address [address] [place] [address]. [place] [address] Care Team Providers Name Role Phone Hermelinda Reid MD Unavailable [phone] Hermelinda Reid MD Unavailable [phone] Reason for Visit Reason Comments Diabetes Patient Education (Routine: Next available opening) - Closed Specialty Diagnoses / Procedures Referred By Contact Refer red To Contact Diabetes Education Diagnoses Type 2 diabetes mellitus (H) High-risk , unspecified trimester Valeria Bey MD [facility] [address] [facility] [place] [address] [place] [address] [place] [address] Phone: Referral ID Status Reason Start Date Expiration Date Visits Requ ested Visits Authorized [id number] Closed 08/28/2021 08/28/2022 1 1 Encounter Details Date Type Department Care Team Description 09/17/2021 Virtual Visit [facility] Carli Sterling, Typ e 2 diabetes mellitus (H); Clinic [address] High-risk , unspecified trimest er [address] [facility] [address] [place], [place] [address] [facility] [address] [facility] [phone] [place] [address] Social History Tobacco Use Types Packs/Day Years Used Date Smoking Tobacco: Never Smokeless Tobacco: Never Alcohol Use Standard Drinks/Week Comments Not Currently 0 (1 standard drink = 0.6 oz pure alcoho l) Sex Assigned at Date Recorded Female 09/11/2021 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 documented as of this encounter Patient Instructions Patient InstructionsCarli Sterling RD - 09/17/2021 11:15 AM CST 1. Continue same insulin doses. 2. Test glucose levels 4-6x/day. Review with Endo at appt this week. 3. Follow a carb controlled diet with 3 meals and 2-3 snacks daily. 4. Recommend follow-up with Diab Ed in 2 weeks. Will have schedulers reach out. LESS PHYSICIAN documented in this encounter Progress Notes Carli Sterling RD - 09/17/2021 11:15 AM CST Images from the original note were not included. Diabetes Self-Management Education & Support Type of Service: Telephone Visit Originating Location (Patient Location): Other car? Distant Location (Provider Location): Home Mode of Communication: Telephone Telephone Visit Start Time: 11:15 Telephone Visit End Time (telephone visit stop time): 11:37 How would patient like to obtain AVS? MyChart Presents for: Individual review SUBJECTIVE/OBJECTIVE: Presents for: Individual review Accompanied by: Self Diabetes education in the past 24mo: No Focus of Visit: Patient Unsure Diabetes type: Type 2 () Disease course: Worsening Other concerns:: None Cultural Influences/Ethnic Background: Monegasque Diabetes Symptoms & Complications Complications assessed today?: No Patient Problem List and Family Medical History reviewed for relevant medical history, current medical status, and diabetes risk factors. Vitals: LMP 01/21/2021 Estimated Date of Delivery: Oct 28, 2021 Labs: No results found for: A1C Lab Results Component Value Date GLC 179 08/26/2021 No results found for: LDL No results found for: HDL] No results found for: GFRESTIMATED No results found for: GFRESTBLACK No results found for: CR No results found for: MICROALBUMIN Last 3 BP: BP Readings from Last 3 Encounters: 09/14/21 115/83 08/26/21 123/81 History Smoking Status ??? Never Smoker Smokeless Tobacco ??? Never Used Healthy Eating Healthy Eating Assessed Today: Yes Meal planning/habits: Avoiding sweets Breakfast: skips OR eggs, brooks, milk OR OJ Lunch: sandwich, fruit (orange) OR steak, potatoes Dinner: 6-7pm: turkey sandwich, chips, water Snacks: AM snack - cheese stick, yogurt / PM snack - fruit or cheese stick Other: HS snack - none Beverages: Water Has patient met with a dietitian in the past?: Yes Being Active Being Active Assessed Today: No Monitoring Monitoring Assessed Today: Yes Did patient bring glucose meter to appointment? : Yes Times checking blood sugar at home (number): Other (tests 1-4x/day) Blood glucose trend: Decreasing Blood Glucose/Ketone Log: Date Fasting Post Breakfast Post Lunch Post Supper 09/14 91 105 66 09/15 09/16 131 09/17 131 Checking for urine ketones?no Taking Medications Diabetes Medication(s) Insulin insulin NPH (HUMULIN N VIAL) 100 UNIT/ML vial Take 28 units 20-30 minutes before breakfast & 18 units 20-30 minutes before evening meal. insulin regular (HUMULIN R VIAL) 100 UNIT/ML vial Take 12 units 20-30 minutes before breakfast & 16 units 20-30 minutes before evening meal. Indications: Diabetes Mellitus Any changes to above medications since becoming : no Taking Medication Assessed Today: Yes Current Treatments: Insulin Injections Dose schedule: Pre-breakfast,Pre-dinner Given by: Significant other Problems taking diabetes medications regularly?: No Diabetes medication side effects?: No Problem Solving Problem Solving Assessed Today: Yes Is the patient at risk for hypoglycemia?: Yes Hypoglycemia Frequency: Rarely Hypoglycemia symptoms Feeling shaky: Yes Reducing Risks Reducing Risks Assessed Today: No Healthy Coping Healthy Coping Assessed Today: Yes Emotional response to diabetes: Ready to learn Informal Support system:: Significant other Stage of change: ACTION (Actively working towards change) Patient Activation Measure Survey Score: No flowsheet data found. INTERVENTION: Patient presented for Type 2 Diabetes. Advised to check glucose levels 4-5 times daily (fasting, 2 hrs post-breakfast, pre-lunch, 2 hours post-lunch, 2 hours post-dinner). Recommended carb controlled diet with 3 meals and 2-3 low-carb snacks daily. Avoid sugar sweetened beverages. Healthy Eating: consistency in amount, composition, and timing of food intake and portion control Monitoring: individual blood glucose targets and frequency of monitoring Problem Solving: high blood glucose - causes, signs/symptoms, treatment and prevention and low bloodglucose - causes, signs/symptoms, treatment and prevention Referral to care team: none ASSESSMENT: Ketones: na . Fasting blood glucoses: % in target. After breakfast: % in target. Pre lunch: % in target. After lunch: % in target. Pre dinner: % in target. After dinner: % in target. Unable to assess glucose control with limited data. Reinforced that patient should be testing a minimum of 4x/day (it may be helpful to see pre-lunch and pre-dinner numbers as well, but compliance may be an issue with increased testing). Recommend patient keep good glucose records for Endo appointmentthis week. Without adequate glucose data, it is difficult to make insulin changes. Recommended a carb controlled diet. Patient states she knows this. Patient requested to end call after 20 minutes due to a conflict. Recommend follow-up with Diab Ed in 2 weeks. Will have schedulers reach out. Education provided today on: AADE Self-Care Behaviors: Healthy Eating: consistency in amount, composition, and timing of food intake and portion control Monitoring: individual blood glucose targets and frequency of monitoring Problem Solving: high blood glucose - causes, signs/symptoms, treatment and prevention and low bloodglucose - causes, signs/symptoms, treatment and prevention Opportunities for ongoing education and support in diabetes-self management were discussed. Pt verbalized understanding of concepts discussed and recommendations provided today. Education Materials Provided: No new materials provided today PLAN: See Patient Instructions for co-developed, patient-stated behavior change goals. AVS printed and provided to patient today. See Follow-Up section for recommended follow-up. Carli Sterling RDN [facility] Time Spent: 22 minutes Encounter Type: Individual Any diabetes medication dose changes were made via the CDE Protocol and Collaborative Practice Agreement with the patient's referring provider. A copy of this encounter was shared with the provider. FOLLOW-UP: Follow up with concrete buster operator in 2 weeks. LESS PHYSICIAN documented in this encounter Plan of Treatment Upcoming Encounters Date Type Specialty Care Team Description 07/26/2022 Appointment Radiology. Dion Ramirez MD [address] [place], [place] [address] Liliana Wright MD [address] [facility] [address] [place], [place] [address] 07/26/2022 Office Visit Maternal and Dion Ramirez MD [address] [place], [place] [address] Medicine Liliana Wright MD [address] [place] [address] [facility] [address] [place], [place] [address] 08/13/2022 Appointment Cardiology Dion Ramirez MD [address] [place], [place] [address] (Wo rk) documented as of this encounter Visit Diagnoses Diagnosis Type 2 diabetes mellitus (H) Type II or unspecified type diabetes jo-ann litus without mention of complication, not stated as uncontrolled High-risk , unspecified trimest er documented in this encounter Care Teams Nurse Office Relationship Specialty Start Date End Date MD Jeanette Endocrinology, 08/29/21 MD Hermelinda Diabetes, and [address] [facility] Metabolism [address] [place], [place] [address] Radha Reid Endocrinology 09/09/21 MD Hermelinda Provider [address] [facility] [address] [facility] [address] [place], [place] [address] documented as of this encounter
--- OUTSIDE RECORDS SUMMARY | 2022-07-12 20:22 | XMS_ITS | Encounter Summary ---
:1995 Author Organization [place] Address [address] [place] [address] Care Team Providers Name Role Phone Hermelinda Reid MD Unavailable [phone] Hermelinda Reid MD Unavailable [phone] Lurdes Echeverria MD Unavailable Dalia Ervin MD Unavailable No Ref-Primary, Physician Primary Care Provider [phone] Lore Son MD Unavailable [phone] Reason for Visit Reason Onset Date Comments Referral 09/17/2021 Encounter Details Date Type Department Care Team Description 09/17/2021 Telephone [facility] Valeria Bey MD Referral Clinic [place] [address] [address] [place] [address] [place] [address] [place] [address] [phone] Social History Tobacco Use Types Packs/Day Years Used Date Smoking Tobacco: Never Smokeless Tobacco: Never Alcohol Use Standard Drinks/Week Comments Not Currently 0 (1 standard drink = 0.6 oz pure alcoho l) Sex Assigned at Date Recorded Female 09/11/2021 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 documented as of this encounter Miscellaneous Notes Telephone Encounter - Em Fairchild RN - 09/20/2021 10:26 AM CST Pt will not be able to get in for Echo prior to delivery. Post-lore Echo advised per [facility] addended note on 09/14. Will cancel echo order. Discussed with Dr Torrez. Em Fairchild RN AL SCIENCE INSTRUCTOR Telephone Encounter - Kylah Lund RN - 09/18/2021 12:42 PM CST Spoke to pt, she will call [facility] as she has not gotten a call. Explained that she needs a echo. Kylah Prado RN BSN AL SCIENCE INSTRUCTOR Telephone Encounter - Kylah Lund RN - 09/17/2021 2:56 PM CST Referral for [facility] echo entered. Will watch to see that it gets scheduled. Kylah Prdao RN BSN AL SCIENCE INSTRUCTOR Telephone Encounter - Kylah Lund RN - 09/17/2021 2:55 PM CST ----- Message from Valeria Bey MD sent at 09/17/2021 2:39 PM SOCIAL SCIENCE INSTRUCTOR ----- Regarding: RE: Need consult for DM2? Please contact [facility] and ensure this patient is scheduled for a echo in the near future due to hx of preexisting DM2. Thank you, Valeria Bey MD ----- Message ----- From: Natalio Stafford MD Sent: 09/16/2021 9:21 PM SOCIAL SCIENCE INSTRUCTOR To: Valeria Bey MD Subject: RE: Need consult for DM2? Sorry. I just saw this but for future, if timing is too far out, text me at [phone] or call theMFM at [facility] or [facility] and they can get cardiology to find a slot. Routine scans are are backed up but we can always get someone in within 3 weeks or sooner if necessary. More than 4 weeks is unacceptable. Please email me or call/text as I am not on epic everyday only doing clinical work a few time a month. Thanks,, Pb Stafford ----- Message ----- From: Valeria Bey MD Sent: 08/30/2021 5:43 PM SOCIAL SCIENCE INSTRUCTOR To: Natalio Macias MD Subject: RE: Need consult for DM2? If I am unable to get a echo in our system for a patient with DM2, where should I send them? Thanks, Valeria Bey MD ----- Message ----- From: Soheila Muniz RN Sent: 08/30/2021 2:35 PM SOCIAL SCIENCE INSTRUCTOR To: Valeria Bey MD Subject: RE: Need consult for DM2? Sounds good. I will try my hardest to get her an echo but they are currently booked 7 weeks out! ----- Message ----- From: Valeria Bey MD Sent: 08/30/2021 1:33 PM SOCIAL SCIENCE INSTRUCTOR To: Soheila Muniz RN Subject: RE: Need consult for DM2? I think just the ultrasound read, but she probably needs a echo as well. Thanks, Valeria Bey MD ----- Message ----- From: Soheila Muniz RN Sent: 08/29/2021 11:31 AM SOCIAL SCIENCE INSTRUCTOR To: Valeria Bey MD Subject: Need consult for DM2? Hi Dr. Bey, We also received a referral at [facility] for ultrasound/transfer of care for Valery Scott from [place]. Isee she is all set up to see your clinic which is probably much more convenient for her. We are happy to see her for a L2 at [facility], wondering if you additionally would like a consult for her (as her [place] clinic ordered) or ultrasound read only? Thanks Soheila LEAL [phone] AL SCIENCE INSTRUCTOR documented in this encounter Plan of Treatment Upcoming Encounters Date Type Specialty Care Team Description 07/26/2022 Appointment Radiology. Dion Ramirez MD [address] [place], [place] [phone] Liliana Wright MD [address] [place] [address] [facility] 395 [place], [place] [address] 07/26/2022 Office Visit Maternal and Dion Ramirez MD [address] [place], [place] [address] Medicine Liliana Wright MD 420 [facility] [address] [place], [place] [address] 08/13/2022 Appointment Cardiology Dion Ramirez MD [address] [place], [place] [address] (Wo rk) documented as of this encounter Visit Diagnoses Not on filedocumented in this encounter Care Teams Lance Crewmember/Mlrs Sergeant Relationship Specialty Start Date End Date No Ref-Primary, PCP - General 04/29/22 Physician MD Jeanette Endocrinology, 08/29/21 MD Hermelinda Diabetes, and [address] [facility] Metabolism [address] [place], [place] [address] Radha Reid Endocrinology 09/09/21 MD Hermelinda Provider [address] [facility] [address] [place] [address] Lurdes Echeverria MD Assigned OBGYN Provider 09/23/21 10/06/[address] [place], [place] [address] Dalia Ervin Assigned OBGYN Provider 10/07/21 [place] [address] [address] [place] [address] Lore Son Assigned OBGYN Provider 05/18/22 MD Gianni [address] [place] [address] documented as of this encounter
--- OUTSIDE RECORDS SUMMARY | 2022-07-12 20:22 | XMS_ITS | Encounter Summary ---
:1995 Author Organization [place] Address [address] [place] [address] Care Team Providers Name Role Phone Hermelinda Reid MD Unavailable [phone] Hermelinda Reid MD Unavailable [phone] Reason for Visit Reason Comments Diabetes Encounter Details Date Type Department Care Team Description 09/14/2021 Virtual Visit [facility] Jeanette, Type 2 diabetes Endocrinology Clinic MD Hermelinda mellitus with [address] hyperglycemia, [address] [facility] [address] [facility] 101 without long-term [address]rd Floor [place], [place] [address] insulin (H) (Primary [address] Dx) Social History Tobacco Use Types Packs/Day Years Used Date Smoking Tobacco: Never Smokeless Tobacco: Never Alcohol Use Standard Drinks/Week Comments Not Currently 0 (1 standard drink = 0.6 oz pure alcoho l) Sex Assigned at Date Recorded Female 09/11/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 documented as of this encounter Progress Notes Mily Kingston - 09/14/2021 12:20 PM CST Outcome for 09/12/21 11:01 AM: [address] Street[address] message sent MARIPOSA Low Outcome for 09/13/21 9:47 AM: Left Voicemail MARIPOSA Baez Outcome for 09/13/21 1:18 PM: Left Amyil MARIPOSA Baez S ANALYTICS MANAGER Hermelinda Reid MD - 09/14/2021 10:50 AM CST Images from the original note were not included. Endocrinology Note Valery is a 26 year old female presents today for pre-exising type 2 diabetes in HPI Valery is a 26 year old female presents today for pre-exising type 2 diabetes in She is curren with PATYON 10/28/21 who is 33 weeks and being evaluated for type 2 diabetes in . She is seen today today for poorly controlled type 2 diabetes. She was diagnosed with type 2 diabetes in 6.5-8.3%. Prior to she was on metformin 500 mg bid x2 years. The pt has seen Dr Rocha an Collar Separator earlier in the for diabetes management and was switched from metformin to insulin NPH and regular. She reports no diabetes with her previous but had pre-eclampsia which subsequently had C/S. This current is her second. She is currently 32 weeks . Interim history She reports checking BG 4 times per day. FBG~ 90-110 and postprandial BG~130- 180. One low BG of 66 when she did not eat enough breakfast. Current diabetes regimen: NPH 36 units and Regular 20 units with breakfast NPH 30 units and Regular 26 units with supper Her gives insulin injection [...] ODT tab Take 4 mg by mouth ??? blood glucose (ACCU-CHEK GUIDE) test strip Use to test 4 times a day. Family History family history includes Asthma in her sister; Cerebrovascular Disease in her paternal grandmother; Diabetes in her father; Hypertension in an other family member. Social History Social History Tobacco Use ??? [...] and regular insulin. She is currently at 33 weeks . Her glucose is still suboptimally control. Will adjust insulin as follows PLAN: Increase NPH 40 units and Regular 22 units with breakfast Increase NPH 32 units and Regular 30 units with supper Continue to check blood glucose before breakfast and 2 hours after meal Return for virtual visit in 1 week with me or PA Start: 09/14/2021 10:58 AM Stop: 09/14/2021 11:07 AM VDO duration 9 minutes External notes/medical records independently reviewed, labs and imaging independently reviewed, medical management and tests to be discussed/communicated to patient. Time: I spent 31 minutes spent on the date of the encounter preparing to see patient (including chart review and preparation), obtaining and or reviewing additional medical history, performing a physical exam and evaluation, documenting clinical information in the electronic health record, independently interpreting results, communicating results to the patient and coordinating care. Hermelinda Reid MD Division of Diabetes and Endocrinology Department of Medicine [phone] S ANALYTICS MANAGER Hermelinda Reid MD - 09/14/2021 10:50 AM CST Patient boyfriend states BG has been ranging 130-150, and this morning BG level at 91 Valery is a 26 year old who is being evaluated via a billable video visit. How would you like to obtain your AVS? MyChart If the video visit is dropped, the invitation should be resent by: Text to cell phone: [phone] Will anyone else be joining your video visit? partner Video-Visit Details Type of service: Video Visit Originating Location (pt. Location): Home Distant Location (provider location): [facility] Platform used for Video Visit: [facility] S ANALYTICS MANAGER documented in this encounter Plan of Treatment Upcoming Encounters Date Type Specialty Care Team Description 07/26/2022 Appointment Radiology. Dion Ramirez MD [address] [place], [place] [phone] Liliana Wright MD [address] [id number] 07/26/2022 Office Visit Maternal and Dion Ramirez MD [address] [place], [place] [address] Medicine Liliana Wright MD [address] [phone] 08/13/2022 Appointment Cardiology Dion Ramirez MD [address] [place], [place] [address] (Wo rk) documented as of this encounter Visit Diagnoses Diagnosis Type 2 diabetes mellitus with hyperglyce ashu, without long-term current use of insulin (H) - Primary documented in this encounter Care Teams Defective Cigarette Slitter Relationship Specialty Start Date End Date MD Jeanette Endocrinology, 08/29/21 MD Hermelinda Diabetes, and [address] [place] [address] [facility] Metabolism [address] [place] [address] Radha Reid Endocrinology 09/09/21 MD Hermelinda Provider 420 [facility] [address] [facility] 101 [place] [address] documented as of this encounter
--- OUTSIDE RECORDS SUMMARY | 2022-07-12 20:22 | XMS_ITS | Encounter Summary ---
:1995 Author Organization [place] Address [address] [facility] [place] [address] Care Team Providers Name Role Phone Hermelinda Reid MD Unavailable [phone] Hermelinda Reid MD Unavailable [phone] Reason for Referral Diagnostic Imaging Ultrasound (Routine) - Pending Review Specialty Diagnoses / Procedures Referred By Contact Refer red To Contact Diagnoses with type 2 diabetes mellitus in third trimester Rh Maternal Med Procedures Maternal BPP Single [address] [place] [address] Referral ID Status Reason Start Date Expiration Date Visits V isits Requested Authorized [id number] Pending 09/14/2021 09/14/2022 1 1 Review S ACCOUNT EXECUTIVE Reason for Visit Diagnostic Imaging Ultrasound (Routine) - Pending Review Specialty Diagnoses / Procedures Referred By Contact Refer red To Contact Diagnoses with type 2 diabetes mellitus in third trimester Rh Maternal Med Procedures Maternal BPP Single [address] [place] [address] Referral ID Status Reason Start Date Expiration Date Visits V isits Requested Authorized [id number] Pending 09/14/2021 09/14/2022 1 1 Review Encounter Details Date Type Department Care Team Description 09/17/2021 Hospital Encounter [facility] Yonny Meza MD [address] [address] [place] [address] with type 2 Maternal Lurdes Echeverria MD [address] [place], [place] [address] diabetes mellitus in Medicine [facility] Dory [address] [place] [address] [address] [place] [address] Social History Tobacco Use Types Packs/Day Years Used Date Smoking Tobacco: Never Smokeless Tobacco: Never Alcohol Use Standard Drinks/Week Comments Not Currently 0 (1 standard drink = 0.6 oz pure alcoho l) Sex Assigned at Date Recorded Female 09/11/2021 7:15 AM SALES ACCOUNT EXECUTIVE COVID-19 Exposure Response Date Recorded In the last month, have you been in contact with No / Unsure 09/17/2021 3:01 PM SALES ACCOUNT EXECUTIVE someone who was confirmed or suspected to [...] tab needed documented as of this encounter Plan of Treatment Upcoming Encounters Date Type Specialty Care Team Description 07/26/2022 Appointment Radiology. Dion Ramirez MD [address] [place] [address] Liliana Wright MD 420 [facility] [address] [place] [address] 07/26/2022 Office Visit Maternal and Dion Ramirez MD [address] [place] [address] Medicine Liliana Wright MD 420 [facility] [address] [place] [address] 08/13/2022 Appointment Cardiology Dion Ramirez MD [address] [place] [address] (Wo rk) documented as of this encounter Procedures Procedure Name Priority Date/Time Associated Diagnosis Comme nts [facility] BPP SINGLE Routine 09/17/2021 3:23 PM with type 2 Results for this SALES ACCOUNT EXECUTIVE diabetes mellitus in procedu re are in the third trimester results sect ion. documented in this encounter Results Maternal BPP Single (09/17/2021 3:23 PM SALES ACCOUNT EXECUTIVE) Anatomical Region Laterality Modality Ultrasound Specimen (Source) Anatomical Collection Method Collection Time Re ceived Time Location / / Volume Laterality 09/17/2021 3:09 PM SALES ACCOUNT EXECUTIVE Impressions 09/17/2021 4:18 PM SALES ACCOUNT EXECUTIVE IMPRESSION 1. Wolfe intrauterine at 3 4w1d gestational age here for testing. 2. The fetus is in variable presentation . The amniotic fluid volume is normal. 3. The BPP is 88. Narrative 09/17/2021 4:18 PM SALES ACCOUNT EXECUTIVE BPP Pat. Name: BEATRIZ APARICIO Study Date: 09/17 3:09pm Pat. NO: [id number] Referring ??MD: LASHAUN SWARTZ Site: [facility] Supervisor: Sara mcgraw RDMS : 1995 Age: 26 [...] movements 2: tone 2: Amniotic fluid volume 03/18 Biophysical profile score Interpretation: normal RECOMMENDATION Thank-you [...] detected Procedure Note Lurdes Echeverria MD - 09/17/2021Formshari arreguin of this note might be different from the original. BPP Pat. Name:Tamera APARICIO Date:09/17/19 3:09pm Pat. NO: [id number] MD:KALYANI SWARTZ [facility]Sara Browning RDMS :1995Age:26 INDICATION Poorly controlled diabetes [...] movements 2: tone 2: Amniotic fluid volume 88 Biophysical profile score Interpretation: normal RECOMMENDATION Thank-you [...] The BPP is 8/8. Lisandra Casanova MD [facility] ORDERABLES documented in this encounter Visit Diagnoses Diagnosis with type 2 diabetes mellitus in third trimester documented in this encounter Care Teams Cryptographer Relationship Specialty Start Date End Date MD Jeanette Endocrinology, 08/29/21 MD Hermelinda Diabetes, and [address] [facility] [address] [facility] Metabolism [address] [place] [address] Radha Reid Endocrinology 09/09/21 MD Hermelinda Provider 420 [facility] [address] [id number] documented as of this encounter
--- OUTSIDE RECORDS SUMMARY | 2022-07-12 20:22 | XMS_ITS | Encounter Summary ---
:1995 Author Organization [place] Address [address] [place] [address] Care Team Providers Name Role Phone Hermelinda Reid MD Unavailable [phone] Reason for Referral Diagnostic Imaging Ultrasound (Routine) - Pending Review Specialty Diagnoses / Procedures Referred By Contact Refer red To Contact Diagnoses related condition, antepartum Teresa, Procedures [facility] MD Freya [facility] [address] [place] [address] Referral ID Status Reason Start Date Expiration Date Visits V isits Requested Authorized [id number] Pending 09/02/2021 09/02/2022 1 1 Review T PRODUCTION ASSOCIATE Encounter Details Date Type Department Care Team Description 09/02/2021 Transcribe Orders [facility] Teresa, P regnancy related Maternal MD Freya condition, Medicine Center [address] [facility] antepartum (Primary [place] SE Dx) [address] [place], [place] [address] [address] [place], [place] [phone] [address] (Work) [phone] Social History Tobacco Use Types Packs/Day Years Used Date Smoking Tobacco: Never Smokeless Tobacco: Never Alcohol Use Standard Drinks/Week Comments Not Currently 0 (1 standard drink = 0.6 oz pure alcoho l) Sex Assigned at Date Recorded Female 09/11/2021 7:15 AM SHIFT PRODUCTION ASSOCIATE COVID-19 Exposure Response Date Recorded In the last month, have you been in contact with No / Unsure 08/26/2021 1:50 PM SHIFT PRODUCTION ASSOCIATE someone who was confirmed or suspected to have Coronavirus / COVID-19? documented as of this encounter Plan of Treatment Upcoming Encounters Date Type Specialty Care Team Description 07/26/2022 Appointment Radiology. Dion Ramirez MD [address] [place] [address] Liliana Wright MD 420 [facility] [address] [place], [place] [phone] 07/26/2022 Office Visit Maternal and Dion Ramirez MD [address] [place] [address] Medicine Liliana Wright MD [address] [id number] 08/13/2022 Appointment Cardiology Dion Ramirez MD [address] [place] [address] (Wo rk) documented as of this encounter Results M US Comprehensive Single (09/14/2021 9:43 AM SHIFT PRODUCTION ASSOCIATE) Anatomical Region Laterality Modality Ultrasound Specimen (Source) Anatomical Collection Method Collection Time Re ceived Time Location / / Volume Laterality 09/14/2021 8:47 AM SHIFT PRODUCTION ASSOCIATE Impressions 09/14/2021 2:34 PM SHIFT PRODUCTION ASSOCIATE IMPRESSION REVISED REPORT 1) Wolfe intrauterine at [...] BPP is reassuring. Narrative 09/14/2021 2:34 PM SHIFT PRODUCTION ASSOCIATE Comprehensive Pat. Name: BEATRIZ APARICIO Study Date: 09/14 8:47am Pat. NO: [id number] Referring ??MD: IDALMIS GLASS [facility] Site: [facility] Vamp Liner: Kylah Condon RDMS : 1995 Age: 26 [...] Biometry: BPD ?84.6 ?mm ? 34w 1d ?Hadlock OFD ?109.9 ?mm ? 33w 0d ? Nicolaides HC ?310.3 ?mm ?34w 5d ?Hadlock Cerebellum tr ?43.4 ? mm ?37w 3d ?Nicolaides AC ?313.6 ?mm ?35w 2d ?90% ?Hadlock Femur ?64.6 ? mm ?33w 2d ?Hadlock Humerus ?56.2 ?mm ? 32w 5d ?Aman Weight Calculation: EFW ? 2,465 ?g ? 69% ?Hadlock EFW (lb,oz) ? 5 lb 7 ?oz EFW by ?Hadlock ([id number]) Head / Face / Neck Biometry: Metalsmith Helper ? 3.9 ? mm CM ?8.3 ? [...] Heart / Thorax ?4-chamber view. 3-vessel view. 1-bwvubr-uowdhfl view. Extremities / Skeleton ?Lef t foot. [...] Amniotic fluid volume 03/18 Biophysical profile score RECOMMENDATION We discussed the findings on today's ult rasound with the patient. Continue surveillance with twi ce weekly BPP and a repeat assessment of growth has also been scheduled here in 3 weeks. Timing of delivery dependent on degree of glucose control and if Maddisons DM continues to be poorly controlled, delivery is recommended at 36-38 weeks. She is planning transfer of care to [facility] in anticipation of delivery at [facility]. Return to primary provider for continued care. [...] be different from the original. Comprehensive Pat. Name:BEATRIZ APARICIOAiyana Date:09/14/19 8:47am Pat. NO: [id number] MD:GARRY CABALLERO Site:[facility]:Rachel Saavedra :1995Age:26 INDICATION Poorly controlled diabetes METHOD [...] 5 lb 7 oz EFW by Hadlock ([id number]) Head / Face / Neck Biometry: Metalsmith Helper 3.9 mm CM 8.3 mm ANATOMY The [...] Heart / Thorax 4-chamber view. 3-vessel view. 4-bvhkzk-xbjnglc view. Extremities / Skeleton Left foot. The [...] She is planning transfer of care to [facility] in anticipation of delivery at [facility]. Return to primary provider for continued care. Thank-you for the opportunity to partici trino in the care of this patient. If you have questions regarding today's evaluation or if we can be of further service, please contact the [facility] Center. anomalies may be present but not detected ADDENDUM: Given advanced gestational age, recommen d post- echo (non-emergent) prior to discharge home in [...] The BPP is reassuring. Freya Moore MD [facility] ORDERABLES documented in this encounter Visit Diagnoses Diagnosis related condition, antepartum - Primary related condition, antepartum documented in this encounter Care Teams Sales And Merchandising Associate Relationship Specialty Start Date End Date Hermelinda Reid MD Endocrinology, Diabetes, and Metabolism [address] [place] [address] documented as of this encounter
--- OUTSIDE RECORDS SUMMARY | 2022-07-12 20:22 | XMS_ITS | Encounter Summary ---
:1995 Author Organization [place] Address [address] [facility] [place] [address] Care Team Providers Name Role Phone Hermelinda Reid MD Unavailable Hermelinda Reid MD Unavailable [phone] Encounter Details Date Type Department Care Team Description 09/20/2021 Office [facility] Lore Son No Show Visit [facility] MD Gianni [place] [address] [facility] [address] [place] [address] [address] [place] [address] Social History Tobacco Use Types Packs/Day Years Used Date Smoking Tobacco: Never Smokeless Tobacco: Never Alcohol Use Standard Drinks/Week Comments Not Currently 0 (1 standard drink = 0.6 oz pure alcoho l) Sex Assigned at Date Recorded Female 09/11/2021 7:15 AM INSPECTOR CONVEYOR LINE COVID-19 Exposure Response Date Recorded In the last month, have you been in contact with No / Unsure 09/25/2021 1:59 PM INSPECTOR CONVEYOR LINE someone who was confirmed or suspected to have Coronavirus / COVID-19? documented as of this encounter Plan of Treatment Upcoming Encounters Date Type Specialty Care Team Description 07/26/2022 Appointment Radiology. Dion Ramirez MD [address] [facility] [address] [place] [address] Liliana Wright MD 420 [facility] [address] [place] [address] 07/26/2022 Office Visit Maternal and Dion Ramirez MD [address] [place], [place] [address] Medicine Liliana Wright MD 420 [facility] SE [facility] [address] [place], [place] [address] 08/13/2022 Appointment Cardiology Dion Ramirez MD [address] [place], [place] [phone] (Wo rk) documented as of this encounter Visit Diagnoses Not on filedocumented in this encounter Care Teams Attendant Coin Operated Laundry Relationship Specialty Start Date End Date MD Jeanette Endocrinology, 08/29/21 MD Hermelinda Diabetes, and [address] [place] [address] [facility] Metabolism [address] [place], [place] [phone] Radha Reid Endocrinology 09/09/21 MD Hermelinda Provider [address] [place] [facility] [address] [place], [place] [address] documented as of this encounter
--- OUTSIDE RECORDS SUMMARY | 2022-07-12 20:22 | XMS_ITS | Encounter Summary ---
:1995 Author Organization [place] Address [address] [place] [address] Care Team Providers Name Role Phone Hermelinda Reid MD Unavailable [phone] Hermleinda Reid MD Unavailable [phone] Lurdes Echeverria MD Unavailable Dalia Ervin MD Unavailable No Ref-Primary, Physician Primary Care Provider [phone] Lore Son MD Unavailable [phone] Reason for Visit Reason Onset Date Comments Same Day Appointment 09/14/2021 conflict Encounter Details Date Type Department Care Team Description 09/14/2021 Telephone [facility] Windy Reid D ay Appointment Endocrinology Clinic MD Hermelinda (conflict) [address] [place] [id number] [phone] Social History Tobacco Use Types Packs/Day Years Used Date Smoking Tobacco: Never Smokeless Tobacco: Never Alcohol Use Standard Drinks/Week Comments Not Currently 0 (1 standard drink = 0.6 oz pure alcoho l) Sex Assigned at Date Recorded Female 09/11/2021 7:15 AM FILM NUMBERER COVID-19 Exposure Response Date Recorded In the last month, have you been in contact with No / Unsure 09/17/2021 3:01 PM FILM NUMBERER someone who was confirmed or suspected to have Coronavirus / COVID-19? documented as of this encounter Miscellaneous Notes Telephone Encounter - Sarah Carney - 09/14/2021 10:47 AM [facility] Phone Message May a detailed message be left on voicemail: yes Reason for Call: Other: Pt thought appt for today was in [place]. Pt needs appt switched back to [facility] at 12:20 if possible. Pt had another appt in [place] and didn't realize appt was out of [place]. Please call back to confirm if pt can switch back. Railroad Car Cleaning Supervisor tried back line, no answer. Action Taken: Message routed to: [facility] endo Travel Screening: Not Applicable NUMBERER documented in this encounter Plan of Treatment Upcoming Encounters Date Type Specialty Care Team Description 07/26/2022 Appointment Radiology. Dion Ramirez MD [address] [place] [address] Liliana Wright MD 420 [facility] [address] [place] [address] 07/26/2022 Office Visit Maternal and Dion Ramirez MD [address] [place], [place] [address] Medicine Liliana Wright MD [address] [place] [address] [facility] [address] [place] [address] 08/13/2022 Appointment Cardiology Dion Ramirez MD [address] [place], [place] [address] (Wo rk) documented as of this encounter Visit Diagnoses Not on filedocumented in this encounter Care Teams Software Firmware Engineer Relationship Specialty Start Date End Date No Ref-Primary, PCP - General 04/29/22 Physician MD Jeanette Endocrinology, 08/29/21 MD Hermelinda Diabetes, and [address] [facility] Metabolism [address] [place] [address] Radha Reid Endocrinology 09/09/21 MD Hermelinda Provider [address] [place] [address] [facility] [address] [place], [place] [phone] Lurdes Echeverria MD Assigned OBGYN Provider 09/23/21 10/06/[address] [place], [place] [phone] Dalia Ervin Assigned OBGYN Provider 10/07/21 [place] [address] [facility] [place] [place] [phone] Lore Son Assigned OBGYN Provider 05/18/22 MD Gianni [address] [place] [address] documented as of this encounter
--- OUTSIDE RECORDS SUMMARY | 2022-07-12 20:22 | XMS_ITS | Encounter Summary ---
:1995 Author Organization [facility] Address [address] [place] [address] Care Team Providers Name Role Phone Hermelinda Reid MD Unavailable Hermelinda Reid MD Unavailable [phone] Reason for Visit Auth/Cert Specialty Diagnoses / Procedures Referred By Contact Refer red To Contact cook ship Diagnoses Pre-eclampsia Pre-eclampsia Rh Labor And Delivery [address] [place], [place] [address] Phone: Fax: Referral ID Status Reason Start Date Expiration Date Visits Requ ested Visits Authorized [id number] 1 1 Encounter Details Date Type Department Care Team Description 09/21/2021 Anesthesia Event M [facility] Laz Verma MD [facility] ANESTHESIA [address] [place], [place] [address] PeriOp Services Jax Abraham MD [facility] ANESTHESIA [address] [place], [place] [address] [address] [place] [address] Anesthesia Record Procedure Summary Procedure Name Responsible Anesthesia Start Anesthesia Stop Time Anesthesiologist Time SECTION Laz Banerjee MD 09/21/21 1439 1614 (Abdomen) Events Date Time Event Comment 09/21/2021 1421 MATERIAL PLANNER Ready for Procedure 1439 An Start 1439 An Start Data 1439 Initial Antibiotic (Started) 1439 Antibiotic Complete 1439 MD Present 1444 MD Present 1450 MD Present 1453 An Induction 1453 MD Present 1455 MD Present 1459 MD Present 1503 Uterine Incision 1503 Baby Delivered 1503 MD Present 1505 MD Present 1511 MD Present 1529 MD Present 1532 Quick Note Stomach suctione d times 2 1602 AN Extubation All extubation c riteria met prior to removal. 1605 an stop data 1610 MD Present 1614 An Stop Electronically s igned by Boston Bauman APRN CRNA on Sep [facility] 2021 4:14 PM Name Total midazolam 1 mg/mL 2 mg fentaNYL 50 mcg/mL 100 mcg HYDROmorphone 1 mg/mL 3 mg propofol 10 mg/mL 200 mg succinylcholine 20 mg/mL 100 mg rocuronium 10 mg/mL 30 mg dexamethasone (DECADRON) 4 mg/mL 4 mg ondansetron 2 mg/mL 4 mg glycopyrrolate 0.2 mg/mL 0.6 mg neostigmine 1 mg/mL 3 mg oxytocin 30 units in 500 mL 0.9% NaCl infusion 400 mL ceFAZolin vial 1 gm 2 g carboprost (Hemabate) 250 mcg LR 1,200 mL Agents Name NO HELIOX O2 N2O Air Exp Sevoflurane Exp Isoflurane Exp Desflurane Exp N2O Ins Sevoflurane Ins Isoflurane Ins Desflurane O2 Auxiliary Blood No blood administrations on file. Lines, Drains, and Airways Type Details Placement Removal Incision/Surgical Site 09/21/21; 1548; 09/21/21 1548 by Abdomen Savana Saavedra RN Peripheral IV 09/21/21; 0035; 20 G; 09/21/21 0035 by 09/24/21 1323 by Distal, Left; Lower Radha Lou RN Sulzba ch-Juliana, forearm; ELVIS Liriano Chlorhexidine; Tolerated well Peripheral IV 09/21/21; 1340; 18 G; 09/21/21 1340 by 09/24/21 1323 by Right; Upper forearm, Savana Saavedra RN Sulzb ach-Juliana, Other (Comment) (ac); Rachel Liriano Chlorhexidine; Tolerated well Urethral Catheter 09/21/21; 1430; No; 09/21/21 1430 by 09/22/21 1544 by Anesthesia; 16 fr Maria De Jesus Florian K elsey M, R, RN RN ETT Placement Date: 09/21/21 1454 by 09/21/21 1602 b y 09/21/21; Placement MicaelaBoston miller, TURKEY PINNER Boston Bauman, Time: 1454; Mask MATERIAL PLANNER TURKEY PINNER MATERIAL PLANNER Ventilation: 0; Induction Type: Intravenous, RSI; Ease of Intubation: Easy; Technique: Direct laryngoscopy; Tube Size: 7 mm; VL Blade Size: Mohamud 2; Grade View: 1; Adjucts: Stylet; Placement Person: MATERIAL PLANNER; Attempts: 1; Depth: 22 cm documented in this encounter Social History Tobacco Use Types Packs/Day Years Used Date Smoking Tobacco: Never Smokeless Tobacco: Never Alcohol Use Standard Drinks/Week Comments Not Currently 0 (1 standard drink = 0.6 oz pure alcoho l) Sex Assigned at Date Recorded Female 09/11/2021 7:15 AM ASSISTANT TEACHER PRIMARY COVID-19 Exposure Response Date Recorded In the last month, have you been in contact with No / Unsure 09/20/2021 11:06 AM ASSISTANT TEACHER PRIMARY someone who was confirmed or suspected to have Coronavirus / COVID-19? documented as of this encounter OR Notes Anesthesia Postprocedure Evaluation - Laz Banerjee MD - 09/21/2021 5:07 PM CST Patient: Valery Scott Procedure: Procedure(s): SECTION Diagnosis:34 weeks gestation of [Z3A.34] Diagnosis Additional Information: No value filed. Anesthesia Type: General Note: Disposition: Inpatient Postop Pain Control: Uneventful Sign Out: Well controlled pain PONV: No Neuro/Psych: Uneventful Sign Out: Acceptable/Baseline neuro status Airway/Respiratory: Uneventful Sign Out: Acceptable/Baseline resp. status CV/Hemodynamics: Uneventful Sign Out: Acceptable CV status; No obvious hypovolemia; No obvious fluid overload Other NRE: NONE DID A NON-ROUTINE EVENT OCCUR? No Last vitals: Vitals Value Taken Time BP 152/95 09/21/21 1700 Temp 98.1 ??F (36.7 ??C) 09/21/21 1640 Pulse 110 09/21/21 1704 Resp 29 09/21/21 1704 SpO2 100 % 09/21/21 1704 Vitals shown include unvalidated device data. Electronically Signed By: Laz Banerjee MD September 21, 2021 5:07 PM STANT TEACHER PRIMARY Anesthesia Preprocedure Evaluation - Jose Eduardo Mcpherson MD - 09/21/2021 3:16 PM CST Anesthesia Pre-Procedure Evaluation Patient: Valery Scott : 1995 Preoperative Diagnosis: 34 weeks gestation of [Z3A.34] Procedure : Procedure(s): SECTION Past Medical History: Diagnosis Date ??? Diabetes (H) GDM ??? Hypertension hx pre-eclampsia in first Past Surgical History: Procedure Laterality Date ??? SECTION 2016 No Known Allergies Social History Tobacco Use ??? Smoking status: Never Smoker ??? Smokeless tobacco: Never Used Substance Use Topics ??? Alcohol use: Not Currently Wt Readings from Last 1 Encounters: 09/21/21 94.8 kg (209 lb) Anesthesia Evaluation ROS/MED HX ENT/Pulmonary: - neg pulmonary ROS Neurologic: - neg neurologic ROS Cardiovascular: (+) hypertension----- METS/Exercise Tolerance: Hematologic: (+) anemia, Musculoskeletal: - neg musculoskeletal ROS GI/Hepatic: - neg GI/hepatic ROS Renal/Genitourinary: Endo: (+) type II DM, Obesity, Psychiatric/Substance Use: - neg psychiatric ROS Infectious Disease: Malignancy: Other: Physical Exam Airway Mallampati: III TM distance: > 3 FB Neck ROM: full Mouth opening: > 3 cm Respiratory Devices and Support Dental no notable dental history Cardiovascular Rhythm and rate: tachycardia Pulmonary pulmonary exam normal OUTSIDE LABS: CBC: Lab Results Component Value Date WBC 15.1 (H) 09/21/2021 WBC 12.1 (H) 09/21/2021 HGB 10.1 (L) 09/21/2021 HGB 9.8 (L) 09/21/2021 HCT 33.8 (L) 09/21/2021 HCT 32.5 (L) 09/21/2021 PLT 316 09/21/2021 PLT 279 09/21/2021 BMP: Lab Results Component Value Date NA 136 09/21/2021 NA 135 09/21/2021 POTASSIUM 3.8 09/21/2021 POTASSIUM 4.1 09/21/2021 CHLORIDE 108 09/21/2021 CHLORIDE 109 09/21/2021 CO2 19 (L) 09/21/2021 CO2 18 (L) 09/21/2021 BUN 11 09/21/2021 BUN 9 09/21/2021 CR 0.36 (L) 09/21/2021 CR 0.38 (L) 09/21/2021 GLC 174 (H) 09/21/2021 GLC 176 (H) 09/21/2021 COAGS: No results found for: PTT, INR, FIBR POC: No results found for: BGM, HCG, HCGS HEPATIC: Lab Results Component Value Date ALBUMIN 2.2 (L) 09/21/2021 PROTTOTAL 6.6 (L) 09/21/2021 ALT 14 09/21/2021 AST 13 09/21/2021 ALKPHOS 102 09/21/2021 BILITOTAL 0.3 09/21/2021 OTHER: Lab Results Component Value Date USMAN 8.7 09/21/2021 Anesthesia Plan ASA Status: 4, emergent NPO Status: ELEVATED Aspiration Risk/Unknown Anesthesia Type: General. - Airway: ETT Induction: RSI, Intravenous. Maintenance: Inhalation. Consents Anesthesia Plan(s) and associated risks, benefits, and realistic alternatives discussed. Questions answered and patient/solar sales representative and assessor(s) expressed understanding. - Discussed: - Discussed with: Patient - Extended Intubation/Ventilatory Support Discussed: No. - Patient is DNR/DNI Status: No Use of blood products discussed: No . Postoperative Care Pain management: IV analgesics, Oral pain medications, Multi-modal analgesia. PONV prophylaxis: Ondansetron (or other 5HT-3), Dexamethasone or Solumedrol Comments: Other Comments: Emergent c section for eclampsia ASA 4 for obesity, eclampsia, and high aspiration risk Jose Eduardo Mcpherson MD STANT TEACHER PRIMARY documented in this encounter Miscellaneous Notes Anesthesia Care Transfer Note - Boston Bauman APRN MATERIAL PLANNER - 09/21/2021 4:15 PM CST Patient: Valery Scott Procedure: Procedure(s): SECTION Diagnosis: 34 weeks gestation of [Z3A.34] Diagnosis Additional Information: No value filed. Anesthesia Type: No value filed. Note: Level of Consciousness: awake Oxygen Supplementation: face mask Independent Airway: airway patency satisfactory and stable Dentition: dentition unchanged Vital Signs Stable: post-procedure vital signs reviewed and stable Report to RN Given: handoff report given Patient transferred to: PACU Handoff Report: Identifed the Patient, Identified the Reponsible Provider, Reviewed the pertinent medical history, Discussed the surgical course, Reviewed Intra-OP anesthesia mangement and issues during anesthesia, Set expectations for post-procedure period and Allowed opportunity for questions and acknowledgement of understanding Vitals: Vitals Value Taken Time BP Temp Pulse 122 09/21/21 1614 Resp 31 09/21/21 1614 SpO2 100 % 09/21/21 1614 Vitals shown include unvalidated device data. Electronically Signed By: Boston Bauman APRN CRNA September 21, 2021 4:15 PM STANT TEACHER PRIMARY documented in this encounter Plan of Treatment Upcoming Encounters Date Type Specialty Care Team Description 07/26/2022 Appointment Radiology. Dion Ramirez MD [address] [place], [place] [phone] Liliana Wright MD [address] [address] 07/26/2022 Office Visit Maternal and Dion Ramirez MD [address] [place], [place] [address] Medicine Liliana Wright MD [address] [address] 08/13/2022 Appointment Cardiology Dion Ramirez MD [address] [place], [place] [address] (Wo rk) documented as of this encounter Visit Diagnoses Not on filedocumented in this encounter Administered Medications Inactive Administered Medications - up to 3 most recent administrations Medication Order MAR Action Action Date Dose Rate Site carboprost (HEMABATE) injection Given 09/21/2021 3:09 PM ASSISTANT TEACHER PRIMARY 250 mcg Intramuscular, PRN, Starting on Fri09/21/21 at 1509, Anesthesia Intra-op ceFAZolin (ANCEF) 1 g vial to attach to NS 100 Given 022 2:59 PM ASSISTANT TEACHER PRIMARY 2 g ml bag for ADULT or 50 ml bag for PEDS Routine, Intravenous, PRN, Starting on Fri09/21/21 at 1459, Anesthesia Intra-op dexamethasone (DECADRON) injection Given 09/21/2021 2:44 PM ASSISTANT TEACHER PRIMARY 4 mg Intravenous, PRN, Administer over 1 Minutes, Starting on Fri09/21/21 at 1444, Anesthesia Intra-op fentaNYL (PF) (SUBLIMAZE) injection Given 09/21/2021 3:04 PM ASSISTANT TEACHER PRIMARY 100 mcg Intravenous, PRN, Administer over 3-5 Minutes, Starting on Fri09/21/21 at 1504, Anesthesia Intra-op glycopyrrolate (ROBINUL) injection Given 09/21/2021 3:34 PM ASSISTANT TEACHER PRIMARY 0.6 mg Intravenous, PRN, Administer over 1-2 Minutes, Starting on Fri09/21/21 at 1534, Anesthesia Intra-op HYDROmorphone (DILAUDID) injection Given 09/21/2021 3:39 PM ASSISTANT TEACHER PRIMARY 1 mg Intravenous, PRN, Starting on Fri09/21/21 at 1504, Anesthesia Intra-op Given 09/21/2021 3:33 PM ASSISTANT TEACHER PRIMARY 1 mg Given 09/21/2021 3:04 PM ASSISTANT TEACHER PRIMARY 1 mg lactated ringers infusion New Bag 09/21/2021 3:39 PM ASSISTANT TEACHER PRIMARY Intravenous, CONTINUOUS PRN, Anesthesia Intra-op, Starting on Fri09/21/21 at 1421, Until Fri09/21/21 at 1615 New Bag 09/21/2021 2:21 PM ASSISTANT TEACHER PRIMARY midazolam (VERSED) injection Given 09/21/2021 3:04 PM ASSISTANT TEACHER PRIMARY 2 mg Intravenous, Administer over 2 Minutes, PRN, Starting on Fri09/21/21 at 1504, Anesthesia Intra-op neostigmine (PROSTIGMINE) injection Given 09/21/2021 3:34 PM ASSISTANT TEACHER PRIMARY 3 mg Intravenous, PRN, Starting on Fri09/21/21 at 1534, Anesthesia Intra-op ondansetron (ZOFRAN) injection Given 09/21/2021 2:44 PM ASSISTANT TEACHER PRIMARY 4 mg Intravenous, PRN, Administer over 2-5 Minutes, Starting on Fri09/21/21 at 1444, Anesthesia Intra-op oxytocin (PITOCIN) 30 units in 500 mL 0.9% Given 09/21/2021 4:03 PM ASSISTANT TEACHER PRIMARY 400 mLs NaCl infusion Intravenous, PRN, Starting on Fri09/21/21 at 1603, Anesthesia Intra-op propofol (DIPRIVAN) injection 10 mg/mL v ial Given 09/21/2021 2:53 PM ASSISTANT TEACHER PRIMARY 200 mg Intravenous, PRN, Starting on Fri09/21/21 at 1453, Anesthesia Intra-op rocuronium injection Given 09/21/2021 3:02 PM ASSISTANT TEACHER PRIMARY 30 mg Intravenous, PRN, Starting on Fri09/21/21 at 1502, Anesthesia Intra-op succinylcholine (ANECTINE) injection Given 09/21/2021 2:53 PM ASSISTANT TEACHER PRIMARY 100 mg Intravenous, PRN, Starting on Fri09/21/21 at 1453, Anesthesia Intra-op documented in this encounter Care Teams Supervisor Sleeping Bag Department Relationship Specialty Start Date End Date MD Jeanette Endocrinology, 08/29/21 MD Hermelinda Diabetes, and [address] [facility] [address] [id number] Radha Reid Endocrinology 09/09/21 MD Hermelinda Provider [address] [place] [address] [address] documented as of this encounter
--- OUTSIDE RECORDS SUMMARY | 2022-07-12 20:22 | XMS_ITS | Encounter Summary ---
:1995 Author Organization [facility] Address [address] [place] [address] Care Team Providers Name Role Phone Hermelinda Reid MD Unavailable [phone] Hermelinda Reid MD Unavailable [phone] Lurdes Echeverria MD Unavailable Dalia Ervin MD Unavailable Reason for Visit Reason Onset Date Comments Appointment 08/31/2021 Follow up on 09/05 Encounter Details Date Type Department Care Team Description 08/31/2021 Telephone [facility] Dennise Reid (Follow Endocrinology Clinic MD Hermelinda up on 09/05) [address] [address] [phone] Social History Tobacco Use Types Packs/Day Years Used Date Smoking Tobacco: Never Smokeless Tobacco: Never Alcohol Use Standard Drinks/Week Comments Not Currently 0 (1 standard drink = 0.6 oz pure alcoho l) Sex Assigned at Date Recorded Female 09/11/2021 7:15 AM DOG BEHAVIORIST COVID-19 Exposure Response Date Recorded In the last month, have you been in contact with No / Unsure 09/28/2021 10:08 AM DOG BEHAVIORIST someone who was confirmed or suspected to have Coronavirus / COVID-19? documented as of this encounter Miscellaneous Notes Telephone Encounter - Karen Mayers - 09/04/2021 11:15 AM CST Patient scheduled BEHAVIORIST Telephone Encounter - Ubaldo Ingram LPN - 09/03/2021 2:44 PM CST Images from the original note were not included. Hermelinda Reid MD Kiekhaefer, Hedi, LPN Caller: Unspecified (3 days ago, 10:03 AM) Perez Conner, Yes please add her at 11:45 am. Is that ok with the patient? I need to change time. I will add her in. Hermelinda The above appt time being offered is for 09/05/2021. Called pt. Left message on machine to call back Ubaldo Ingram LPN on 09/03/2021 at 2:44 PM BEHAVIORIST Telephone Encounter - Laz Wall - 09/03/2021 8:52 AM CST [facility] Call Center Phone Message May a detailed message be left on voicemail: yes Reason for Call: Other: Pt called in to schedule for 09/05 at 1pm per my chart message, but provider is not available that day. Pt requesting a call back to schedule a time and discuss adjusting her dosage of insulin. Action Taken: Other: Endo Travel Screening: Not Applicable BEHAVIORIST Telephone Encounter - Karen Mayers - 09/03/2021 8:43 AM CST LVM for pt to call back to schedule per instructions below BEHAVIORIST Telephone Encounter - Karen Mayers - 08/31/2021 10:04 AM CST LVM for pt to call back to schedule follow up with Dr Shen for next Tuesday 09/05 at 1 pm BEHAVIORIST Telephone Encounter - Peeweetoni Karen - 08/31/2021 10:03 AM CST ----- Message from Karen Mayers sent at 08/31/2021 9:56 AM DOG BEHAVIORIST ----- Regarding: FW: add on next Fri ----- Message ----- From: Hermelinda Reid MD Sent: 08/31/2021 9:50 AM DOG BEHAVIORIST To: Karen Mayers Subject: RE: add on next Fri I told her that I will see her next week. That's it. Could you please give her or her a callfor the appt? Hermelinda Meléndez ----- Message ----- From: Karen Mayers Sent: 08/31/2021 9:44 AM DOG BEHAVIORIST To: Heremlinda Reid MD Subject: RE: add on fri Hi Dr Shen, I see this patient just had an appointment this morning, is the patient aware of this time and day or does she need a call to confirm? Thank you, Karen Styles ----- Message ----- From: Hermelinda Reid MD Sent: 08/31/2021 9:23 AM DOG BEHAVIORIST To: [id number] Subject: add on fri Edward, Could you please set up f/up appt virtually with me at 1 pm on next 09/05? Thanks, Hermelinda BEHAVIORIST documented in this encounter Plan of Treatment Upcoming Encounters Date Type Specialty Care Team Description 07/26/2022 Appointment Radiology. Dion Ramirez MD [address] [place] [address] Liliana Wright MD 420 [facility] [address] [place], [place] [address] 07/26/2022 Office Visit Maternal and Dion Ramirez MD [address] [place], [place] [address] Medicine Liliana Wright MD [address] [facility] [address] [facility] [address] [place], [place] [address] 08/13/2022 Appointment Cardiology Dion Ramirez MD [address] [place] [address] (Wo rk) documented as of this encounter Visit Diagnoses Not on filedocumented in this encounter Care Teams Awake Overnight Monitor Relationship Specialty Start Date End Date MD Jeanette Endocrinology, 08/29/21 MD Hermelinda Diabetes, and 420 [facility] Metabolism 101 [place], [place] [phone] Radha Reid Endocrinology 09/09/21 MD Hermelinda Provider [address] [place] [address] [facility] [address] [place], [place] [address] Lurdes Echeverria MD Assigned OBGYN Provider 09/23/21 10/06/[address] [place], [place] [address] Dalia Ervin Assigned OBGYN Provider 10/07/21 [place] [address] [facility] [place], [place] [id number] documented as of this encounter
--- OUTSIDE RECORDS SUMMARY | 2022-07-12 20:22 | XMS_ITS | Encounter Summary ---
:1995 Author Organization [facility] Address [address] [place] [address] Care Team Providers Name Role Phone Hermelinda Reid MD Unavailable [phone] Hermelinda Reid MD Unavailable [phone] Encounter Details Date Type Department Care Team Description 09/10/2021 Travel Social History Tobacco Use Types Packs/Day Years Used Date Smoking Tobacco: Never Smokeless Tobacco: Never Alcohol Use Standard Drinks/Week Comments Not Currently 0 (1 standard drink = 0.6 oz pure alcoho l) Sex Assigned at Date Recorded Female 09/11/2021 7:15 AM ORTHOTIST/PROSTHETIST COVID-19 Exposure Response Date Recorded In the last month, have you been in contact Unable to assess 09/10/2021 2:16 PM ORTHOTIST/PROSTHETIST with someone who was confirmed or suspected to have Coronavirus / COVID-19? documented as of this encounter Plan of Treatment Upcoming Encounters Date Type Specialty Care Team Description 07/26/2022 Appointment Radiology. Dion Ramirez MD [address] [place], [place] [address] Liliana Wright MD 420 [facility] [address] [place], [place] [address] 07/26/2022 Office Visit Maternal and Dion Ramirez MD [address] [place], [place] [address] Medicine Liliana Wright MD 420 [facility] 395 [place], [place] [address] 08/13/2022 Appointment Cardiology Dion Ramirez MD [address] [place], [place] [address] (Wo rk) documented as of this encounter Visit Diagnoses Not on filedocumented in this encounter Care Teams Executive Search Consultant Relationship Specialty Start Date End Date MD Jeanette Endocrinology, 08/29/21 MD Hermelinda Diabetes, and [address] [place] [address] [facility] Metabolism 101 [place] [address] Radha Reid Endocrinology 09/09/21 MD Hermelinda Provider 420 [facility] 101 [place], [place] [address] documented as of this encounter
--- OUTSIDE RECORDS SUMMARY | 2022-07-12 20:22 | XMS_ITS | Encounter Summary ---
:1995 Author Organization [place] Address [facility] [place] [address] Care Team Providers Name Role Phone Hermelinda Reid MD Unavailable [phone] Hermelinda Reid MD Unavailable [phone] Reason for Visit Reason Comments Ultrasound BPP: DM2-poorly controlled Encounter Details Date Type Department Care Team Description 09/17/2021 Office Visit [facility] Anthony Casanova MD [address] [facility] [address] [place] [address] with type 2 Maternal Lurdes Echeverria MD [address] [facility] [address] [place] [address] diabetes mellitus in Medicine [facility] third trimester [address] [place] [address] (Primary Dx) [address] [address] Social History Tobacco Use Types Packs/Day Years Used Date Smoking Tobacco: Never Smokeless Tobacco: Never Alcohol Use Standard Drinks/Week Comments Not Currently 0 (1 standard drink = 0.6 oz pure alcoho l) Sex Assigned at Date Recorded Female 09/11/2021 7:15 AM CHILD CARE TEAM LEAD COVID-19 Exposure Response Date Recorded In the last month, have you been in contact with No / Unsure 09/17/2021 3:01 PM CHILD CARE TEAM LEAD someone who was confirmed or suspected to have Coronavirus / COVID-19? documented as of this encounter Last Filed Vital Signs Vital Sign Reading Time Taken Comments Blood Pressure 127/86 09/17/2021 3:47 PM CHILD CARE TEAM LEAD Pulse 90 09/17/2021 3:47 PM CHILD CARE TEAM LEAD Temperature - - Respiratory Rate - - Oxygen Saturation - - Inhaled Oxygen Concentration - - Weight - - Height - - Body Mass Index - - documented in this encounter Progress Notes Lurdes Echeverria MD - 09/17/2021 3:30 PM CST The patient was seen for an ultrasound in the Maternal- Medicine Center at the [facility]. For a detailed report of the ultrasound examination, please see the ultrasound report which can be found under the imaging tab. Lurdes Echeverria MD Tin Plater, TAX REPRESENTATIVE Maternal- Medicine [phone] (Pager) D CARE TEAM LEAD documented in this encounter Nursing Notes Tsering Luo RN - 09/17/2021 3:30 PM CST Pt presents to clinic for BPP due to poorly controlled DM. States her BS have been better and she's been taking her insulin as directed. Positive movement. Has had brown spotting for the last couple days along with increased vaginal pressure. Encouraged to call her primary provider so they are aware of these concerns. Also complains of a right sided headache and watery eyes. BP within normal limits. Discussed s/s Pre-eclampsia and when to notify MD. Discharged ambulatory and stable. Tsering Luo RN D CARE TEAM LEAD documented in this encounter Plan of Treatment Upcoming Encounters Date Type Specialty Care Team Description 07/26/2022 Appointment Radiology. Dion Ramirez MD [address] [place] [address] Liliana Wright MD 420 [facility] [address] [place], [place] [address] 07/26/2022 Office Visit Maternal and Dion Ramirez MD [address] [place], [place] [address] Medicine Liliana Wright MD [address] [place] [address] [facility] [address] [place], [place] [phone] 08/13/2022 Appointment Cardiology Dion Ramirez MD [address] [place] [address] (Wo rk) documented as of this encounter Visit Diagnoses Diagnosis with type 2 diabetes mellitus in third trimester - Primary documented in this encounter Care Teams Farm Loan Representative Relationship Specialty Start Date End Date MD Jeanette Endocrinology, 08/29/21 MD Hermelinda Diabetes, and [address] [place] [address] [facility] Metabolism 101 [place], [place] [phone] Radha Reid Endocrinology 09/09/21 MD Hermelinda Provider [address] [facility] 101 [place], [place] [address] documented as of this encounter
--- OUTSIDE RECORDS SUMMARY | 2022-07-12 20:22 | XMS_ITS | Encounter Summary ---
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 documented as of this encounter Plan of Treatment Upcoming Encounters Date Type Specialty Care Team Description 07/26/2022 Appointment Radiology. Dion Ramirez MD [address] [place], [place] [address] Liliana Wright MD [address] [facility] [address] [place], [place] [address] 07/26/2022 Office Visit Maternal and Dion Ramirez MD [address] [place], [place] [address] Medicine Liliana Wright MD [address] [facility] [address] [facility] [address] [place], [place] [address] 08/13/2022 Appointment Cardiology Dion Ramirez MD [address] [place], [place] [address] (Wo rk) documented as of this encounter Visit Diagnoses Not on filedocumented in this encounter Care Teams Product Finisher Relationship Specialty Start Date End Date MD Jeanette Endocrinology, 08/29/21 MD Hermelinda Diabetes, and [address] [facility] Metabolism [address] [place] [address] Radha Reid Endocrinology 09/09/21 MD Hermelinda Provider [address] [facility] [address] [facility] 101 [place], [place] [address] documented as of this encounter
--- OUTSIDE RECORDS SUMMARY | 2022-07-12 20:23 | XMS_ITS | Encounter Summary ---
:1995 Author Organization [facility] Address [address] [place] [address]. [place] [address] Care Team Providers Name Role Phone Hermelinda Reid MD Unavailable [phone] Reason for Visit Reason Comments Video Visit Consultation (Urgent: 3-5 Days) - Closed Specialty Diagnoses / Procedures Referred By Contact Refer red To Contact Endocrinology, Diagnoses Type 2 diabetes mellitus (H) High-risk , unspecified trimester Valeria Bey MD [facility] Diabetes, and [address] [facility] [place] [address] [place] [address] [address] [place] [phone] Phone: Referral ID Status Reason Start Date Expiration Date Visits Requ ested Visits Authorized [id number] Closed 08/28/2021 08/28/2022 1 1 Encounter Details Date Type Department Care Team Description 08/31/2021 Virtual Visit [facility] Valeria Bey MD [address] [place] [address] Type 2 diabetes mellitus with hyperglyce ashu, unspecified whether rectifying operator insulin use (H) (Primary Dx); Endocrinology Clinic Hermelinda Reid MD [address] [place] [address] [address] [place] [address] High-risk , unspecified trimest er [place] [id number] [facility] [address] [place] [address] Social History Tobacco Use Types Packs/Day Years Used Date Smoking Tobacco: Never Smokeless Tobacco: Never Alcohol Use Standard Drinks/Week Comments Not Currently 0 (1 standard drink = 0.6 oz pure alcoho l) Sex Assigned at Date Recorded Female 09/11/2021 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 documented as of this encounter Patient Instructions Patient InstructionsHermelinda Reid MD - 08/31/2021 8:50 AM WAITER/WAITRESS CABIN CLASS Change insulin regimen to Increase NPH 32 units and Regular 16 units with breakfast Increase NPH 26 units and Regular 20 units with supper Return in 1 week If you have any questions, please do not hesitate to call clinic line at [phone] and ask for Endocrinology clinic. If you need to fax, please fax to clinic fax number at [phone] After clinic hours or weekends, please contact [phone] and ask for Scraper Loader Operator-refrigeration supervisor Sincerely, Hermelinda Reid MD Endocrinology ER/WAITRESS CABIN CLASS documented in this encounter Progress Notes Karina Howe - 08/31/2021 8:50 AM CST Valery Scott is being evaluated via a billable video visit. How would you like to obtain your AVS? Mail a copy For the video visit, send the invitation by: Text to cell phone: [phone] Will anyone else be joining your video visit? No Outcome for 08/30/21 9:05 AM: Left Voicemail Outcome for 08/30/21 12:22 PM: Data obtained via phone and located below. Pt could not find old meter. She only has data from her new meter she has. 08/29/21 5:54pm: 108 11:44pm: 190 08/30/21 12:59pm: 104 ER/WAITRESS CABIN CLASS Hermelinda Reid MD - 08/31/2021 8:50 AM CST Images from the original note were not included. Endocrinology Note Valery is a 26 year old female presents today for pre-exising type 2 diabetes in HPI Valery is a 26 year old female presents today for pre-exising type 2 diabetes in She is curren with PAYTON 10/28/21 who is 31 weeks and being evaluated for type 2 diabetes in . She is referred to our clinic today for poorly controlled type 2 diabetes. She was diagnosed with type 2 diabetes in 6.5-8.3%. Prior to she was on metformin 500 mg bid x2 years. The pt has seen Dr Rocha an Scraper Loader Operator earlier in the for diabetes management and was switched from metformin to insulin NPH and regular. She reports no diabetes with her previous but had pre-eclampsia which subsequently had C/S. This current is her second. She is currently 31 weeks . Current diabetes regimen: NPH 28 units and Regular 14 units in the AM NPH 22 units and Regular 19 units at HS Her gives insulin injection to her. BG checked: BS's 1-3 times daily. reports FBS values are ~ 134-160. Postprandial BG 149-200 (1 pm). Past Medical History Past Medical History: Diagnosis [...] and regular insulin. She is currently at 31 weeks . Her glucose is still suboptimally control. Will adjust insulin as follows PLAN: Increase NPH 32 units and Regular 16 units with breakfast Increase NPH 26 units and Regular 20 units with supper Continue to check blood glucose before breakfast and 2 hours after meal Return for virtual visit in 1 week (next Friday) Start: 08/31/2021 09:06 am Stop: 08/31/2021 09:18 am VDO duration 12 minutes External notes/medical records independently reviewed, labs and imaging independently reviewed, medical management and tests to be discussed/communicated to patient. Time: I spent 56 minutes spent on the date of the encounter preparing to see patient (including chart review and preparation), obtaining and or reviewing additional medical history, performing a physical exam and evaluation, documenting clinical information in the electronic health record, independently interpreting results, communicating results to the patient and coordinating care. Hermelinda Reid MD Division of Diabetes and Endocrinology Department of Medicine [phone] ER/WAITRESS CABIN CLASS documented in this encounter Plan of Treatment Upcoming Encounters Date Type Specialty Care Team Description 07/26/2022 Appointment Radiology. Dion Ramirez MD [address] [place] [address] Liliana Wright MD [address] [facility] [address] [place], [place] [address] 07/26/2022 Office Visit Maternal and Dion Ramirez MD [address] [place], [place] [address] Medicine Liliana Wright MD 420 [facility] [address] [place] [address] 08/13/2022 Appointment Cardiology Dion Ramirez MD [address] [place] [address] (Wo rk) documented as of this encounter Visit Diagnoses Diagnosis Type 2 diabetes mellitus with hyperglyce ashu, unspecified whether assisted insulin use (H) - Primary High-risk , unspecified trimest er documented in this encounter Care Teams Membership Counselor Relationship Specialty Start Date End Date Hermelinda Reid MD Endocrinology, Diabetes, MD and Metabolism [address] [facility] [address] [place] [address] documented as of this encounter
--- OUTSIDE RECORDS SUMMARY | 2022-07-12 20:23 | XMS_ITS | Clinical Summary ---
:1995 Author Organization [facility] [place] [address] Care Team Providers Name Role Phone EliciaVianeysindy SALOMON Primary Care Provider Allergies No known active allergies Medications Medication Sig Dispensed Refills Start Date End Date Status lancetsIndications: As directed. Test 300 Each 0 10/17/2020 Active Type 2 diabetes 3 times per day. mellitus without complication, without long-term current use of insulin (HC) Accu-Chek Guide test TEST THREE TIMES 300 Each 3 05/16/2021 Active strips DAILY stripIndications: Type 2 diabetes mellitus with diabetic polyneuropathy, without long-term current use of insulin (HC) ondansetron (ZOFRAN) 4 TAKE 1 TABLET BY 0 01/09/2022 Active mg tablet MOUTH EVERY 6-8 HOURS NEEDED ibuprofen (ADVIL; TAKE 1 TABLET BY 0 01/09/2022 Active MOTRIN) 600 mg tablet MOUTH EVERY 6-8 HOURS BD Sharps Blender Machine Operator USE DIRECTED 0 12/20/2021 Active misc fluticasone (50 mcg per SHAKE LIQUID AND 16 g 0 Active actuation) nasal USE 2 SPRAYS IN solution EACH NOSTRIL (FLONASE)Indications: EVERY DAY Nasal bleeding transmitter for Change every 90 1 Each 0 02/20/2022 Active continuous blood days glucose monitor (CGM)Indications: Type 2 diabetes mellitus with diabetic polyneuropathy, without long-term current use of insulin (HC) acetaminophen (TYLENOL 0 09/24/2021 Active EXTRA STRGTH) 500 mg tablet HumuLIN R Regular U-100 0 03/22/2022 Active Insuln 100 unit/mL injection vit 28/iron Take 1 Tablet by 90 Tablet 3 03/28/2022 Active fum/folic (multivitamin mouth once daily. folic acid 1 mg)Indications: Positive test Accu-Chek Guide Glucose TEST DIRECTED 1 Each 0 2 Active MeterIndications: Type 2 diabetes mellitus with diabetic polyneuropathy, without long-term current use of insulin (HC) meclizine (ANTIVERT) 25 Take 1 Tablet (25 30 Tablet 0 05/07/20 22 Active mg tabletIndications: mg) by mouth 3 Vertigo times daily if needed for Vertigo. ferrous sulfate 325 mg Take 1 Tablet 90 Tablet 3 05/07/2022 Active delayed release (325 mg) by mouth tabletIndications: Iron once daily with a deficiency anemia meal. secondary to inadequate dietary iron intake insulin syringe-needle Inject 100 Each 3 06/03/2022 Active u-100 (BD Insulin subcutaneous. Syringe Ultra-Fine) 1 mL 31 gauge x 5/16Indications: Type 2 diabetes mellitus without complication, with long-term current use of insulin (HC) Active Problems Problem Noted Date 04/25/2022 Overview: Formatting of this note is dif ferent from the original. Estimated Date of Delivery: None noted. Patient's last menstrual period was 12/09. Last Tdap- 11/30/2015 Last Flu vaccine- 05/01/2020 Glucose (GTT) result- too early No Known Allergies OB History Para Term AB Living 3 1 0 1 0 1 SAB IAB Ectopic Multiple Live Births 0 0 0 0 1 # Outcome Date GA Lbr Jj/2nd Weight Sex Delivery Anes PTL Lv 3 Current 2 12/09/15 M AUBRIE 1 Create lab flowsheet for OB labs- future order No past medical history on file. No past surgical history on file. No data on file. ob Problems (from 04/17/22 to present) No problems associated with this episod remington Tenorio RN.....04/25/2022 8:34 AM Pre-eclampsia 09/20/2021 Pre-existing type 2 diabetes mellitus during in third trimester 04/30/2021 Oligomenorrhea 06/10/2019 Overview: Formatting of this note might be differe nt from the original. Last period couple months ago. Last Assessment & Plan: Formatting of this note might be differe nt from the original. ?? Ordered quantitative HCG, TSH, prolac tin, A1c. Will contact with results Obesity with body mass index 30 or greater 06/10/2019 Overview: Formatting of this note might be differe nt from the original. Will check labs for possibility of pre-d iabetes/diabetes Last Assessment & Plan: Formatting of this note might be differe nt from the original. ?? Ordered A1C. Will contact with result s Mass of parotid gland 11/14/2014 Comments Yes Encounters Date Type Specialty Care Team Description 07/08/2022 Nurse Triage Nicole Rubi, DO Seizure 06/07/2022 Refill Nicole Rubi DO Refill Requ est (Accu-chek Guide Glucose M eter) 05/07/2022 Office Visit Nicole Rubi DO Dizzy 05/07/2022 Travel 04/18/2022 Refill Nicole Rubi DO Refill Requ est (Accu-chek Guide Glucose M eter) 04/17/2022 Phone [facility]als/); Pr enatal Care (Lmp 2021, 7w+1d) from Last 3 Months Immunizations Name Administration Dates Next Due DTP 04/03/1999, 11/01/1997, 07/13/1996, 04/06/1996 Hepatitis A (Adult) 07/07/2018, 08/27/2013 Hepatitis B (Peds) 11/01/1997, 07/13/1996, 04/06/1996 Human Papilloma Virus Vaccine 06/29/2007, 11/05/2006, 2005 Influenza Virus, Unspecified 11/27/2015 (Deferred: Patient R efused) Influenza, IIV4 05/01/2020, 06/10/2019, 07/07/2018, 01/12/2015 MMR 04/03/1999, 04/06/1996 Meningococcal Vaccine (Menactra) 11/05/2006 Meningococcal, Unspecified 07/22/2012 (Deferred: Patient Ref used) Oral Polio Vaccine 04/03/1999, 11/01/1997, 07/13/1996, 04/06/1996 Tdap 11/30/2015, 03/28/2006 Typhoid (injectable) 07/07/2018, 08/27/2013 Varicella Vaccine 12/12/2015, 03/28/2006, 03/31/2000 Social History Tobacco Use Types Packs/Day Years Used Date Never Smoker Smokeless Tobacco: Never Used Tobacco Cessation: Counseling Given: Yes Alcohol Use Standard Drinks/Week Comments Never 0 (1 standard drink = 0.6 oz pure alcoho l) Alcohol Habits Answer Date Recorded How often do you have a drink containing alcohol? Never 05/01/2020 How many drinks containing alcohol do you have on a typical Not asked day when you are drinking? How often do you have six or more drinks on one occasion? No t asked Comment: Not asked Comments Yes Sex Assigned at Date Recorded Not on file Obstetrics History Para Term AB IAB SAB Ectopic Multiple Living Live Births 3 1 0 1 1 1 Date Outcome GA Total Labor/2nd/3rd Weight Sex Delivery Anes PTL Aubrie A 1 A5 Name Clin Labor 12/08 M Gabbi /2015 ng Current OB Episode Summary Episode Dates Estimated Date of Pregravid Weight TWG (As of ) Delivery 04/17/2022 - Present Unknown (07/12/2022) Progress Notes 04/17/2022 - Sandie Oakley MDFormedgar tting of this note is different from the original. TELEPHONE VISIT Rooming As the provider for this telephone servi ce, I attest that I introduced myself to the patient, provided my credentials, disclosed my location, and determined that, based on a review of the patient's [facility] t and/or a discussion with members of e patient's treatment team, a telephone visit is an appropriate and effective means of providing this service. The patient and I mutually agree that this visit is appropriate for telephone as well. Patient location (originating site city/ state): [place], [place] Provider location (distant site city/sta ): [place], [place] Telephone start time (include am/pm uzair gnation): 5:10 PM Telephone end time (include am/pm design ation): 5:35 PM Total time preparing to see this patient , wklv-jy-gxan time, and coordinating care time on the same calendar date: 23 minutes. Chief Complaint Patient presents with ? ? Telehealth Phone visit, no vitals ? ? Care Lmp 02/26/2022, 7w+1d Nursing Notes: Miriam Dale 04/17/2022 5:02 PM Signed Chief Complaint Patient presents with ? ? Telehealth Phone visit, no vitals ? ? Care Lmp 02/26/2022, 7w+1d There were no vitals taken for this visi t. Health Maintenance Due Topic Date Due ? ? Pneumococcal series for age 19-64 (1 - PCV) Never done ? ? COVID-19 vaccine series (3 - Booster for Moderna series) 07/13/2021 ? ? BMI (ht and wt on same day) for age 18+ 02/15/2022 ? ? Influenza for age 9-49 04/11/2022 PHQ Depression Screening 05/01/2020 022 Date of PHQ exam (doc flow) 05/01/202004/17/2022 1. Lack of interest/pleasure 0 - Not at all 0 - Not at all 2. Feeling down/depressed 1 - Several da ys 0 - Not at all PHQ-2 TOTAL SCORE 1 0 3. Trouble sleeping 1 - Several days - 4. Decreased energy 1 - Several days - 5. Appetite change 1 - Several days - 6. Feelings of failure 0 - Not at all - 7. Trouble concentrating 0 - Not at all - 8. Activity level 0 - Not at all - 9. Hurting yourself 0 - Not at all - PHQ-9 TOTAL SCORE 4 - PHQ-9 Severity Level none - Functional Impairment not difficult at a ll - BRITTENY-7 ANXIETY SCREENING 04/17/2022 BRITTNEY date (doc flow) 04/17/2022 Nervous, anxious 1 Cannot stop worrying 2 Worry about different things 1 Cannot relax 1 Feeling restless 0 Easily annoyed/irritated 0 Afraid of awful event 0 Score 5 Severity mild anxiety Some recent data might be hidden Pt here for 7 week 1 day OB check - FM + N/V + cramping, bleeding,abnormal discharge - leaking of fluid + H/A, takes Tylenol and they resolve - Visual changes - swelling HM discussed with patient. Medications d iscontinued from medication list per Sandie Oakley MD Orders placed per Sandie Oakley MD Preferred method of contact: Miriam Silva [facility] 04/17/2022 4:58 PM Subjective SUBJECTIVE: HPI Patient calls for OB intake visit. LMP . Can't remember exactly when she took the test probably a couple weeks ago. Not a planned . She has 2 boys ages 6 years and 6 months. She is not currently . She had a miscarriage before the of her younger son, around 5 weeks. States that she had eclampsia with the of her second son. He was born via emergency c esarean section at 34 weeks. First son w as also born by section after trial of labor, I couldn't push. She has type 2 diabetes. She is insulin dependent. States that she was diagnosed last year prior to her with her second son. Her last hemoglobin A1c was 5.5. She experienced a stress seizure on 04/15/22 and was evaluated in the ED in [place], [place]. 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 Review of Systems Per HPI/Subjective. Patient's past medic al, surgical, social and family histories are reviewed today and updated where appropriate. Objective OBJECTIVE: GEN: no acute distress ENT: hearing with no difficulties RESP: talking easily in full sentences w ith no labored breathing NEURO: alert and oriented x 3 PSYCH: affect normal Assessment Plan ASSESSMENT AND PLAN: Positive test (Primary) Discussed with patient given her complex medical history, recommend she establish care with obstetrics, referral is placed. Patient believes she will go back to [place] where she received care during her recent . - AMB CONSULT TO OB-LICENSED MORTICIAN --[facility]- -; Future History of eclampsia - AMB CONSULT TO OB-LICENSED MORTICIAN --[facility]- -; Future S/P section - AMB CONSULT TO OB-LICENSED MORTICIAN --[facility]- -; Future Short interval between pregnancies affec ting in first trimester, antepartum - AMB CONSULT TO OB-LICENSED MORTICIAN --[facility]- -; Future Type 2 diabetes mellitus without complic ation, with long-term current use of insulin (HC) - AMB CONSULT TO OB-LICENSED MORTICIAN --[facility]- -; Future Obesity with body mass index 30 or great er - AMB CONSULT TO OB-LICENSED MORTICIAN --[facility]- -; Future Follow up in As needed. There are no Patient Instructions on majo e for this visit. Sandie Oakley MD No future appointments. Last Filed Vital Signs Vital Sign Reading Time Taken Comments Blood Pressure 121/86 05/07/2022 11:48 AM CDT Pulse 100 05/07/2022 11:48 AM CDT Temperature 36.7 ??C (98 ??F) 05/07/2022 11:48 AM CDT Respiratory Rate - - Oxygen Saturation 100% 05/07/2022 11:48 AM CDT Inhaled Oxygen Concentration - - Weight 83.7 kg (184 lb 9.6 oz) 03/28/2022 1:32 PM CDT Height 158 cm (5' 2.21) 02/15/2021 11:13 AM CDT Body Mass Index 33.54 02/15/2021 11:13 AM CDT Plan of Treatment Health Maintenance Due Date Last Done Comments Pneumococcal series for age 19-64 2000 (1 - PCV) HIV for age 15-65 2009 COVID-19 vaccine series (3 - 04/07/2021 02/10/2021, 021 Booster for Moderna series) BMI (ht and wt on same day) for 02/15/2022 02/15/2021, 12/09, age 18+ 05/01/2020 Influenza for age 9-49 04/11/2022 05/01/2020, 06/10/2019, 07/07/2018, Additional history exists Depression screening for age 12+ 04/17/2023 04/17/2022, , 05/01/2020, Additional history exists Pap test for age 21-65 05/01/2023 05/01/2020 Tetanus booster 11/29/2025 11/30/2015, 03/28/2006 Hepatitis B series for Diabetes Completed 11/01/1997, 10/1995, 04/06/1996 Tdap Completed 11/30/2015, 03/28/2006 Hepatitis C screening for age Completed 01/17/2022 18-79 Procedures Procedure Name Priority Date/Time Associated Diagnosis Comme nts HEMOGLOBIN STAT 05/07/2022 12:27 PM Weakness Results for this CDT procedure are i n the results section. GLUCOSE, RANDOM Routine 05/07/2022 11:59 AM Weakness Resul ts for this CDT procedure are i n the results section. from Last 3 Months Results (ABNORMAL) HEMOGLOBIN (05/07/2022 12:27 PM CDT) athologist Signature HEMOGLOBIN 9.6 (L) 12.0 - 05/07/2022 [facility] 16.0 g/dL 12:31 PM CDT [facility] MCV 68 (L) 80 - 100 05/07/2022 [facility] fL 12:31 PM CDT [facility] Specimen Anatomical Collection Method / Collection Time Recei iva Time (Source) Location / Volume Laterality Blood BLOOD SPECIMEN / Venipuncture / 05/07/2022 12:27 05/07 Unknown Unknown PM CDT 12:27 PM CDT Nicole Rubi DO HEMATOLOGY Performing Organization Address City/[facility]/ZIP Code Phon e Number [facility] [address] [place] [address] (ABNORMAL) GLUCOSE, RANDOM (05/07/2022 11:59 AM CDT) athologist Signature GLUCOSE,RANDOM 182 (H) 65 - 140 05/07/2022 [facility] mg/dL 12:04 PM CDT [facility] Specimen Anatomical Collection Method Collection Time Receive d Time (Source) Location / / Volume Laterality Blood BLOOD SPECIMEN / Capillary / 05/07/2022 11:59 022 Unknown Unknown AM CDT 11:59 AM CDT Traci Rubi DO CHEMISTRY Performing Organization Address City/[facility]/ZIP [facility] Phon e Number [facility] [address] [place] [address] from Last 3 Months Insurance Payer Benefit Plan / Subscriber ID Effective Dates Phone Addre ss Type Group NIKOLAI MENCHACA [place] [id number] 2021-Present [address] [place] [address] [address] 89 y (Home) [address] [place] [id number] Care Teams Logistics Project Manager Relationship Specialty Start Date End Date Nicole Rubi DO PCP - General Family Practice 11/06/[address] [place] [address]
--- OUTSIDE RECORDS SUMMARY | 2022-07-12 20:23 | XMS_ITS | Encounter Summary ---
:1995 Author Organization [facility] Address [address] [place] [id number] Care Team Providers Name Role Phone Unavailable Primary Care Provider Unavailable Encounter Details Date Type Department Care Team Description 08/26/2021 Travel Social History Tobacco Use Types Packs/Day Years Used Date Smoking Tobacco: Never Smokeless Tobacco: Never Alcohol Use Standard Drinks/Week Comments Not Currently 0 (1 standard drink = 0.6 oz pure alcoho l) Sex Assigned at Date Recorded Female 09/11/2021 7:15 AM [employer] COVID-19 Exposure Response Date Recorded In the last month, have you been in contact with No / Unsure 08/26/2021 1:50 PM [employer] someone who was confirmed or suspected to have Coronavirus / COVID-19? documented as of this encounter Plan of Treatment Upcoming Encounters Date Type Specialty Care Team Description 07/26/2022 Appointment Radiology. Dion Ramirez MD [address] [place] [address] Liliana Wright MD [address] [facility] [address] [place], [place] [id number] 07/26/2022 Office Visit Maternal and Dion Ramirez MD [address] [place], [place] [id number] Medicine Liliana Wright MD [address] [facility] [address] [place] [address] 08/13/2022 Appointment Cardiology Dion Ramirez MD [address] [place] [address] (Wo rk) documented as of this encounter Visit Diagnoses Not on filedocumented in this encounter
--- OUTSIDE RECORDS SUMMARY | 2022-07-12 20:23 | XMS_ITS | Encounter Summary ---
:1995 Author Organization [place] Address [address] [place] [id number] Care Team Providers Name Role Phone Unavailable Primary Care Provider Unavailable Reason for Visit Reason Comments Blood Sugar Problem Elevated Encounter Details Date Type Department Care Team Description 08/26/2021 Hospital Encounter [facility] Zac Slaughter MD [address] [facility] [address] [place] [address] [place], [place] [phone] [id number] Social History Tobacco Use Types Packs/Day Years Used Date Smoking Tobacco: Never Smokeless Tobacco: Never Alcohol Use Standard Drinks/Week Comments Not Currently 0 (1 standard drink = 0.6 oz pure alcoho l) Sex Assigned at Date Recorded Female 09/11/2021 7:15 AM HEAT REGULATOR COVID-19 Exposure Response Date Recorded In the last month, have you been in contact with No / Unsure 08/26/2021 1:50 PM HEAT REGULATOR someone who was confirmed or suspected to have Coronavirus / COVID-19? documented as of this encounter Last Filed Vital Signs Vital Sign Reading Time Taken Comments Blood Pressure 123/81 08/26/2021 1:46 PM HEAT REGULATOR Pulse - - Temperature 36.6 ??C (97.9 ??F) 08/26/2021 1:46 PM HEAT REGULATOR Respiratory Rate 18 08/26/2021 1:46 PM HEAT REGULATOR Oxygen Saturation - - Inhaled Oxygen Concentration - - Weight 89.8 kg (198 lb) 08/26/2021 1:46 PM HEAT REGULATOR Height 160 cm (5' 3) 08/26/2021 1:46 PM HEAT REGULATOR Body Mass Index 35.07 08/26/2021 1:46 PM HEAT REGULATOR documented in this encounter Discharge Instructions Discharge InstructionsRadha Solorio RN - 08/26/2021 4:07 PM CST Discharge Instruction for Undelivered Patients You were seen for: blood sugar management We Consulted: Dr. Horan You had (Test or Medicine):Glucose monitoring, insulin, and uterine monitoring, and a Biophysical profile Diet: Drink 8 to 12 glasses of liquids (milk, juice, water) every day. You may eat meals and snacks. To manage your diabetes, follow the guidelines for eating and drinking given to you by your Clinic Provider or Aircraft Power Plant Assembler. Activity: Count kicks everyday (see handout) Call your doctor or nurse orthopedic brace maker if your baby is moving less than usual. Call your provider if you notice: Swelling in your face or increased swelling in your hands or legs. Headaches that are not relieved by Tylenol (acetaminophen). Changes in your vision (blurring: seeing spots or stars.) Nausea (sick to your stomach) and vomiting (throwing up). Weight gain of 5 pounds or more per week. Heartburn that doesn't go away. Signs of bladder infection: pain when you urinate (use the toilet), need to go more often and more urgently. The bag of yeung (rupture of membranes) breaks, or you notice leaking in your underwear. Bright red blood in your underwear. Abdominal (lower belly) or stomach pain. For first baby: Contractions (tightening) less than 5 minutes apart for one hour or more. Second (plus) baby: Contractions (tightening) less than 10 minutes apart and getting stronger. *If less than 34 weeks: Contractions (tightening) more than 6 times in one hour. Increase or change in vaginal discharge (note the color and amount) Other: Call your doctor or orthopedic brace maker with any questions or concerns. Follow-up: As scheduled in the clinic REGULATOR AttachmentsThe following attachments cannot be sent through Care Everywhere. During , Blood Glucose Screening (Belizean)Gestational Diabetes, What Is (Belizean), Monitoring Your Blood Sugar During (Belizean), Understanding Blood Sugar During (Belizean)documented in this encounter Medications at Time of Discharge Medication Sig Dispensed Refills Start Date End Date acetaminophen (TYLENOL) Take 325-650 mg by 0 09/24/2021 325 MG tablet mouth every 6 hours as needed for mild pain aspirin (ASA) 81 MG Take 81 mg by mouth 0 09/24/2021 chewable tablet daily blood glucose Use to test 4 times a 0 07/18/2021 09/14/2021 (ACCU-CHEK GUIDE) test day. strip blood glucose (NO BRAND TEST THREE TIMES [...] tab needed documented as of this encounter H&P Notes Zac Horan MD - 08/26/2021 4:21 PM CST [facility] Labor and Delivery History and Physical Valery Scott Age: [age] year old Date of : 1995 Date of Admission: 08/26/2021 Primary care provider: No primary care provider on file. Chief Complaint: Valery Scott is a 26 year old female PAYTON 10/28/21 confirmed with early U/S who has been receiving care thru the [facility]OR CHECKER specialists at the [facility] in [facility] who is 31w0d and being evaluated for Type 2 DM in with suboptimal control. The pt states that she was seen 2 days ago and noted to have poorly controlled BS values. The pt was told to come to [facility] for BS management and came to L&D at [facility]. The pt presents with her Significant other who states that he mixes her daily insulin. He states that the pt takes NPH 28 units and [id number] units in the am and NPH 30 units and Regular 18 units at HS. He states that she checks her BS's 3-4 times daily and that the FBS values are 180-200 and post prandial values in a similar range. She has a meter at home. Her SO states that she last took insulin at approx midnight on 08/16/21 and ate a Panni sandwich at approx 0945 am today. The pt denies N/V, F/C changes in bowel or bladder function, elevations in BP, H/A's RUQ pain or visual changes or sx to suggest PTL, ROM bleeding or changes in movement. Her BS today at 205PM was 179. The pt has seen Dr Sales an Oceanographer Physical earlier in the for DM mgmnt but states that she has not seen him in a while. Her previous was delivered via LST C/B at [place] at 35.6 weeks in a complicated with pre-eclampsia with severe features with subsequent intolerance of labor. The pt is on ASA 81 mg po every day this . history: OBSTETRIC HISTORY: OB History Para Term AB Living 2 1 0 1 0 0 SAB IAB Ectopic Multiple Live Births 0 0 0 0 0 # Outcome Date GA Lbr Jj/2nd Weight Sex Delivery Anes PTL Lv 2 Current 1 12/09/15 35w2d M -SEC Complications: Preeclampsia/Hypertension EDC: Estimated Date of Delivery: 10/28/21 Labs: No results found for: ABO, RH, , HEPBANG, CHPCRT, GCPCRT, TREPAB, RUBELLAABIGG, HGB, HIV GBS Status: No results found for: GBS Active Problem List Patient Active Problem List Diagnosis ??? Elevated blood sugar Medication Prior to Admission Medications Prior to Admission Medication Sig Dispense Refill Last Dose ??? acetaminophen (TYLENOL) 325 MG tablet Take 325-650 mg by mouth every 6 hours as needed for mild pain Past Week at Unknown time ??? aspirin (ASA) 81 MG chewable tablet Take 81 mg by mouth daily Past Week at Unknown time ??? blood glucose (ACCU-CHEK GUIDE) test strip Use to test 4 times a day. 08/26/2021 at Unknown time ??? blood glucose (NO BRAND SPECIFIED) test strip TEST THREE TIMES DAILY 08/26/2021 at Unknown time ??? Blood Glucose Monitoring Suppl (ASSURE PRO BLOOD GLUCOSE METER) GILDARDO 08/26/2021 at Unknown time ??? calcium carbonate (TUMS) 500 MG chewable tablet Daily as needed 08/25/2021 at Unknown time ? ? insulin NPH (HUMULIN N VIAL) 100 UNIT/ML vial Take 28 units 20-30 minutes before breakfast &18 units 20-30 minutes before evening meal. 08/25/2021 at Unknown time ? ? insulin regular (HUMULIN R VIAL) 100 UNIT/ML vial Take 12 units 20-30 minutes before breakfast & 16 units 20-30 minutes before evening meal. Indications: Diabetes Mellitus 08/25/2021 at Unknown time ??? lancets 28G MISC As directed. Test 3 times per day. 08/26/2021 at Unknown time ??? ondansetron (ZOFRAN-ODT) 4 MG ODT tab Take 4 mg by mouth 08/26/2021 at Unknown time . Maternal Past Medical History: Past Medical History: Diagnosis Date ??? Diabetes (H) Family History: I have reviewed this patient's family history Social History: I have reviewed this patient's social history Review of Systems: CONSTITUTIONAL: NEGATIVE for fever, chills, change in weight ENT/MOUTH: NEGATIVE for ear, mouth and throat problems RESP: NEGATIVE for significant cough or SOB CV: NEGATIVE for chest pain, palpitations or peripheral edema Physical Exam: Vitals were reviewed All vitals stable Temp: 97.9 ??F (36.6 ??C) Temp src: Oral BP: 123/81 Resp: 18 Constitutional: awake, alert, cooperative, no apparent distress, and appears stated age Eyes: Lids and lashes normal, pupils equal, round and reactive to light, extra ocular muscles intact, sclera clear, conjunctiva normal ENT: Normocephalic, without obvious abnormality, atraumatic, sinuses nontender on palpation, external ears without lesions, oral pharynx with moist mucous membranes, tonsils without erythema or exudates, gums normal and good dentition. Neck: Supple, symmetrical, trachea midline, no adenopathy, thyroid symmetric, not enlarged and no tenderness, skin normal Hematologic / Lymphatic: no cervical lymphadenopathy and no supraclavicular lymphadenopathy Back: Symmetric, no curvature, spinous processes are non-tender on palpation, paraspinous muscles are non-tender on palpation, no costal vertebral tenderness Lungs: No increased work of breathing, good air exchange, clear to auscultation bilaterally, no crackles or wheezing Cardiovascular: Normal apical impulse, regular rate and rhythm, normal S1 and S2, no S3 or S4, and no murmur noted Abdomen: Prev C/B scars, normal bowel sounds, soft, non-distended, non-tender, no masses palpated, no hepatosplenomegally Genitounirinary: External Genitalia: General appearance; normal Musculoskeletal: There is no redness, warmth, or swelling of the joints. Full range of motion noted. Motor strength is 5 out of 5 all extremities bilaterally. Tone is normal. Neurologic: Awake, alert, oriented to name, place and time. Cranial nerves II-XII are grossly intact. Motor is 5 out of 5 bilaterally. Cerebellar finger to nose, heel to is[place] intact. Sensory is intact. Babinski down going, Romberg negative, and gait is normal. Cervix: Membranes: intact Dilation: closed Effacement: 0% Station:FLOATING Consistency: firm Position: Mid Presentation:Cephalic Heart Rate Tracing: Tier 1 (normal) Tocometer: external monitor and adequate Assessment: Valery Scott is a 31w0d female admitted with requests to optimize BS control and DM mgmnt. I had a lengthy discussion with the pt and her SO regarding plans for delivery. It is their understanding that they are going to deliver via repeat C/B in [place].. Plan: The pt had a BPP today that was 8/8. U/S measurements done 08/24/21 shows a noyola infant vtx BOB of 5.2with an AC measurement in the 91 percentile. The worksheet will be abstracted. I called the [facility] to speak with her OB MD. There was a Locums working who was not familiar with this pt. I then spoke with Ghada the L&D RN from [place] who is familiar with the situation. At this time we will discharge the pt with instructions to f/u in the office in [place] tomorrow 08/27/21 with the plan that the pt will transfer care to [place] for ongoing care due to her poorly controlled T2 DM. This plan was reviewed with the pt and her SO. They understand and accept. A copy of thisnote will be faxed to L&D in [place] Observation Zac Horan MD REGULATOR documented in this encounter Miscellaneous Notes Plan of Care - Radha Solorio RN - 08/26/2021 4:00 PM CST discussed the plan of care with providers from [facility]. The plan is to discharge the patient to home, undelivered with instructions on when to return. She will have follow-up care at [facility]. REGULATOR Provider Notification - Petty Hurst RN - 08/26/2021 2:20 PM HEAT REGULATOR 08/26/21 1420 Provider Notification Provider Name/Title Dr Horan Method of Notification Electronic Page Request Evaluate - Remote Notification Reason Patient Arrived Dr Zac Horan informed of patient arrival and assessment including the following: Reason for maternal/ assessment uncontrolled Diabetes in . Pt reports blood sugars in the 200's. Patient has not taken insulin today. status moderate variability, no accels present for 31wks. Irregular ctx per patient and pelvic pain. Patient has hx of Pre-eclampsia with at 35wks in first . Plan per provider/orders received for BPP, give patient insulin she did not take. MD will come assess. BG obtained upon admission was 176. REGULATOR Plan of Care - Petty Hurst RN - 08/26/2021 2:08 PM CST Data: Patient presented to Birthplace: 08/26/2021 1:35 PM. Reason for maternal/ assessment is high blood sugars in the 200's. Patient reports Blood sugars in the 170-200 range. Patient has not taken insulin since yesterday evening. Reports headache, generally not feeling well. Some irregular ctx and pelvic pressure are present. Patient is a . record reviewed. has been complicated by gestational diabetes, vs pre-gestational diabetes on insulin. Gestational Age 31w0d. VSS. movement active. Patient denies leaking of vaginal fluid/rupture of membranes, vaginal bleeding, nausea, vomiting, visual disturbances, epigastric or URQ pain, significant edema. Support person is present. Action: Verbal consent for EFM. Triage assessment completed. Bill of rights reviewed. Response: Patient verbalized agreement with plan. Will contact Dr Zac Horan with update and for further orders. REGULATOR documented in this encounter Plan of Treatment Upcoming Encounters Date Type Specialty Care Team Description 07/26/2022 Appointment Radiology. Dion Ramirez MD [address] [place], [place] [id number] Liliana Wright MD [address] [id number] 07/26/2022 Office Visit Maternal and Dion Ramirez MD [address] [place], [place] [phone] Medicine Liliana Wright MD [address] [id number] 08/13/2022 Appointment Cardiology Dion Ramirez MD [address] [place] [address] (Wo rk) documented as of this encounter Procedures Procedure Name Priority Date/Time Associated Diagnosis Comme nts OB BIOPHY STAT 08/26/2021 3:34 PM Res ults for this PROFILE W/O NON HEAT REGULATOR procedure ar e in STRESS SINGLE the results section. GLUCOSE BY METER Routine 08/26/2021 2:05 PM Resul ts for this HEAT REGULATOR procedure are i n the results section. documented in this encounter Results US Biophys Prof w/o Non Stress Test (08/26/2021 3:34 PM HEAT REGULATOR) Anatomical Region Laterality Modality Abdomen/Pelvis Ultrasound Specimen (Source) Anatomical Collection Method Collection Time Re ceived Time Location / / Volume Laterality 08/26/2021 2:47 PM HEAT REGULATOR Impressions 08/26/2021 3:39 PM HEAT REGULATOR IMPRESSION: 1. ??Single living intrauterine gestatio n in transverse/oblique presentation. 2. ??Normal /8 biophysical profile. Narrative 08/26/2021 3:39 PM HEAT REGULATOR EXAM: ULTRASOUND OBSTETRIC BIOPHYSICAL PROFILE WITHOUT NON STRESS SINGLE LOCATION: [facility] DATE/TIME: 08/26/2021, 2:47 PM INDICATION: Poorly managed diabetes in regnancy. COMPARISON: None. FINDINGS: Single living fetus, transverse/oblique presentation. HEART RATE: 146 bpm. SDP 7.5 cm. PLACENTA: Anterior. No previa. CERVIX: 5.6 cm, closed in appearance. 2/2 breathing 2/2 movements 2/2 tone 2/2 amniotic fluid Total biophysical profile 03/18 Procedure Note Oumar Wall MD - 08/26/2021Forma tting of this note might be different from the original. EXAM: ULTRASOUND OBSTETRIC BIOPHYS ICAL PROFILE WITHOUT NON STRESS SINGLE LOCATION: [facility] DATE/TIME: 08/26/2021, 2:47 PM INDICATION: Poorly managed diabetes in p regnancy. COMPARISON: None. FINDINGS: Single living fetus, transverse/oblique presentation. HEART RATE: 146 bpm. SDP 7.5 cm. PLACENTA: Anterior. No previa. CERVIX: 5.6 cm, closed in appearance. 2/2 breathing 2/2 movements 2/2 tone 2/2 amniotic fluid Total biophysical profile 03/18 IMPRESSION: 1. Single living intrauterine gestation in transverse/oblique presentation. 2. Normal /8 biophysical profile. Zac Horan MD IMG US ORDERABLES (ABNORMAL) Glucose by meter (08/26/2021 2:05 PM HEAT REGULATOR) athologist Signature GLUCOSE BY 179 (H) 70 - 99 08/26/2021 LABORATORY METER POCT mg/dL 2:11 PM HEAT REGULATOR POC Specimen Anatomical Collection Method Collection Time Receive d Time (Source) Location / / Volume Laterality Blood BLOOD SPECIMEN / 08/26/2021 2:05 PM 08/26 2:11 Unknown HEAT REGULATOR PM HEAT REGULATOR Zac CHENG - AILYNNAT POCT Performing Organization Address City/State/ZIP Code Phon e Number [place] [address] [facility] [address] Lab (1st floor, no room number) documented in this encounter Visit Diagnoses Diagnosis Elevated blood sugar Other abnormal glucose documented in this encounter Admitting Diagnoses Diagnosis Elevated blood sugar Other abnormal glucose documented in this encounter Administered Medications Inactive Administered Medications - up to 3 most recent administrations Medication Order MAR Action Action Date Dose Rate Site dextrose 50 % injection 25-50 mL 25-50 mL, Intravenous, EVERY 15 MIN PRN, low blood sug ar, Administer over 1-5 Minutes, Starting on 08/26/21 at 1456 , Use if have IV access, BG [...] glucose level is above 100 mg/dL. Vesicant. glucagon injection 1 mg 1 mg, Subcutaneous, EVERY 15 MIN PRN, low blood sugar, May repeat x 1 only, Starting on 08/26/21 at 1456, May giv e SQ or IM. ONLY use glucagon IF patient has NO IV access AND is UNABLE to swallo w AND blood glucose is LESS than or EQUAL to 50 mg/dL. glucose gel 15-30 g 15-30 g, Oral, EVERY 15 MIN PRN, low blo od sugar, Starting on 08/26/21 at 1456, Give first dose for initial blood glucose [...] Document juice on I and O flowsheet. insulin NPH injection 18 Units Given 08/26/2021 3:32 PM HEAT REGULATOR 18 Units 18 Units, Subcutaneous, DAILY, First dose on Fri08/26/21 at 1630, Take 18 units 20-30min before supper/ evening meal insulin NPH injection 28 Units 28 Units, Subcutaneous, EVERY MORNING BE FORE BREAKFAST, First dose on Fri08/27/21 at 0730, Take 20-30min before breakfast insulin regular injection 12 Units 12 Units, Subcutaneous, EVERY MORNING BE FORE BREAKFAST, First dose on Fri08/27/21 at 0730, Take 20-30 min before breakfast If for prandial use, must be administered 30 min before meal or immediately after. insulin regular injection 16 Units 16 Units, Subcutaneous, EVERY 24 HOURS, First dose (after last modification) on Fri08/26/21 at 1630, Take 20-30 minutes befo re evening meal If for prandial use, must be administered 30 min before meal or immediately afte r. metoclopramide (REGLAN) injection 10 mg 10 mg, Intravenous, Administer over 2 Mi nutes, EVERY 6 HOURS PRN, nausea, vomiting, Starting on 08/26/21 at 1432, This is Step 1 of OB nausea and vomiting management. If nausea is not resolved in 30 minutes, go to Step 2 (Zofran). Avoid use if patient has full bowel obstruction or perforati on. Irritant., OB Preadmission metoclopramide (REGLAN) tablet 10 mg 10 mg, Oral, EVERY 6 HOURS PRN, nausea and vomiting, S tarting on 08/26/21 at 1432, This is Step 1 of OB nausea and vomiting managem ent. If nausea is not resolved in 30 minutes, go to Step 2 (Zo davis) Avoid use if patient has full bowel obstruction or perforation., OB Preadmission ondansetron (ZOFRAN) injection 4 mg 4 mg, Intravenous, EVERY 6 HOURS PRN, nausea, vomiting , Administer over 2-5 Minutes, Starting on 08/26/21 at 1432 , This is Step 2 of OB nausea and vomiting management. Give if nausea not resolved 30 minutes aft er giving metoclopramide (REGLAN). If nausea is not resolved in 15 minutes, go to Step 3 (Compazine). Irritant., OB Preadmission ondansetron (ZOFRAN-ODT) ODT tab 4 mg 4 mg, Oral, EVERY 6 HOURS PRN, nausea, v omiting, Starting on 08/26/21 at 1432, This is Step 2 of OB nausea [...] then swallow with saliva. Liquid not required ., OB Preadmission prochlorperazine (COMPAZINE) injection 1 0 mg 10 mg, Intravenous, EVERY 6 HOURS PRN, n ausea, vomiting, Administer over 2 Minutes, Starting on 08/26/21 at 1432, This is Step 3 of OB nausea and vomiting management. Give if nausea not resolved 15 minutes aft er giving ondansetron (ZOFRAN). If nausea is not resolved in 30 minutes, not jason provider., OB Preadmission prochlorperazine (COMPAZINE) suppository 25 mg 25 mg, Rectal, EVERY 12 HOURS PRN, nausea, vomiting, S tarting on 08/26/21 at 1432, This is Step 3 of OB nausea and vomiting managem ent. Give if nausea not resolved 15 minutes after giving ondanse hermelinda (ZOFRAN). If nausea is not resolved in 30 minutes, notify provider., OB Preadmission prochlorperazine (COMPAZINE) tablet 10 m g 10 mg, Oral, EVERY 6 HOURS PRN, nausea, vomiting, Starting on 08/26/21 at 1432, This is Step 3 of OB nausea and vomiting management. Give if nausea not resolved 15 minutes after giving ondansetron (ZOFRAN ). If nausea is not resolved in 30 minutes, notify provider., OB Preadmission documented in this encounter Active and Recently Administered Medications Times are shown in HEAT REGULATOR. Scheduled Medication Order 08/24/2021 08/25/2021 08/26/2021 insulin NPH injection 18 Units 1 532 (Given - Provider: Radha Solorio RN) 18 Units, Subcutaneous, DAILY, First dos e on 08/26/21 at 1630, Take 18 units 20-30min before supper/ evening meal insulin NPH injection 28 Units 28 Units, Subcutaneous, EVERY MORNING BE FORE BREAKFAST, First dose on Fri08/27/21 at 0730, Take 20-30min before breakfast insulin regular injection 12 Units 12 Units, Subcutaneous, EVERY MORNING BE FORE BREAKFAST, First dose on Fri08/27/21 at 0730, Take 20-30 min before breakfast If for prandial use, must be administered 30 min before meal or immediately after. insulin regular injection 16 Units 1630 (Canceled Entry - Provider: Orders Generic Provider - Comment: Automatically canceled at discontinue of medication order) 16 Units, Subcutaneous, EVERY 24 HOURS, First dose (after last modification) on Fri08/26/21 at 1630, Take 20-30 minutes before evening meal If for prandial use, must be administered 30 min before meal or immediately after. PRN Medication Order 08/24/2021 08/25/2021 08/26/2021 dextrose 50 % injection 25-50 mL(Linked Group 1) 25-50 mL, Intravenous, EVERY 15 MIN PRN, low blood sugar, Administer over 1-5 Minutes, Starting on Fri08/26/21 at 1456, Use if have IV access, BG less [...] glucose level is above 100 mg/dL. Vesicant. glucagon injection 1 mg(Linked Group 1) 1 mg, Subcutaneous, EVERY 15 MIN PRN, lo w blood sugar, May repeat x 1 only, Starting on 08/26/21 at 1456, May give SQ or IM. ONLY use glucagon IF patient has NO IV access AND is UNABLE to swallow AND blood glucose is LESS than or EQUAL to 50 mg/dL. glucose gel 15-30 g(Linked Group 1) 15-30 g, Oral, EVERY 15 MIN PRN, low blo od sugar, Starting on 08/26/21 at 1456, Give first dose for initial blood glucose [...] Document juice on I and O flowsheet. metoclopramide (REGLAN) injection 10 mg(Linked Group 2) 10 mg, Intravenous, Administer over 2 Mi nutes, EVERY 6 HOURS PRN, nausea, vomiting, Starting on 08/26/21 at 1432, This is Step 1 of OB nausea and vomiting management. If nausea is not resolved in 30 minutes, go to Step 2 (Zofran). Avoid us e if patient has full bowel obstruction or perforation. Irritant., OB Preadmission metoclopramide (REGLAN) tablet 10 mg(Linked Group 2) 10 mg, Oral, EVERY 6 HOURS PRN, nausea a nd vomiting, Starting on 08/26/21 at 1432, This is Step 1 of OB nausea and vomiting management. If nausea is not resolved in 30 minutes, go to Step 2 (Zofran) Avoid use if patient has full bowel obst ruction or perforation., OB Preadmission ondansetron (ZOFRAN) injection 4 mg(Linked Group 3) 4 mg, Intravenous, EVERY 6 HOURS PRN, na usea, vomiting, Administer over 2-5 Minutes, Starting on 08/26/21 at 1432, This is Step 2 of OB nausea and vomiting management. Give if nausea not resolved 30 minutes after giving metoclopramide (REG DO). If nausea is not resolved in 15 minutes, go to Step 3 (Compazine). Irritant., OB Preadmission ondansetron (ZOFRAN-ODT) ODT tab 4 mg(Linked Group 3) 4 mg, Oral, EVERY 6 HOURS PRN, nausea, v omiting, Starting on 08/26/21 at 1432, This is Step 2 of OB nausea [...] seconds, then swallow with saliva. Liquid not required., OB Preadmission prochlorperazine (COMPAZINE) injection 10 mg(Linked Group 4) 10 mg, Intravenous, EVERY 6 HOURS PRN, n ausea, vomiting, Administer over 2 Minutes, Starting on 08/26/21 at 1432, This is Step 3 of OB nausea and vomiting management. Give if nausea not resolved 15 m inutes after giving ondansetron (ZOFRAN) . If nausea is not resolved in 30 minutes, notify provider., OB Preadmission prochlorperazine (COMPAZINE) suppository 25 mg(Linked Group 4) 25 mg, Rectal, EVERY 12 HOURS PRN, nause a, vomiting, Starting on 08/26/21 at 1432, This is Step 3 of OB nausea and vomiting management. Give if nausea not resolved 15 minutes after giving ondansetron (ZOFRAN). If nausea is not resolved in 30 minutes, notify provider., OB Preadmission prochlorperazine (COMPAZINE) tablet 10 mg(Linked Group 4) 10 mg, Oral, EVERY 6 HOURS PRN, nausea, vomiting, Starting on 08/26/21 at 1432, This is Step 3 of OB nausea and vomiting management. Give if nausea not resolved 15 minutes after giving ondansetron (Z OFRAN). If nausea is not resolved in 30 minutes, notify provider., OB Preadmission Linked Groups Order Group 1: glucose gel 15-30 gJump to med 15-30 g, Oral, EVERY 15 MIN PRN, low blo od sugar, Starting on 08/26/21 at 1456
Give first dose for initial blood glucose [...] sugar, Administer over 1-5 Minutes, Starting on 08/26/21 at 1456
Use if have IV access, BG less [...] May repeat x 1 only, Starting on 08/26/21 at 1456
May give SQ or IM. ONLY use glucagon IF patient has NO IV access AND is UNABLE to swa llow AND blood glucose is LESS than or E QUAL to 50 mg/dL.
Group 2: metoclopramide (REGLAN) injection 10 mgJump to med 10 mg, Intravenous, Administer over 2 Mi nutes, EVERY 6 HOURS PRN, nausea, vomiting, Starting on 08/26/21 at 1432
This is Step 1 of OB nausea and vomiting management. If na usea is not resolved in 30 minutes, go t o Step 2 (Zofran). Avoid use if patient has full bowel obstruction or perforation. Irritant.
OB Preadmission Or metoclopramide (REGLAN) tablet 10 mgJump to med 10 mg, Oral, EVERY 6 HOURS PRN, nausea a nd vomiting, Starting on 08/26/21 at 1432
This is Step 1 of OB nausea and vomiting management. If nausea is not resolved in 30 cari racquel, go to Step 2 (Zofran) Avoid us e if patient has full bowel obstruction or perforation.
OB Preadmission Group 3: ondansetron (ZOFRAN-ODT) ODT tab 4 mgJump to med 4 mg, Oral, EVERY 6 HOURS PRN, nausea, v omiting, Starting on 08/26/21 at 1432
This is Step 2 of OB nausea [...] then swallow with saliva. Liquid not required.
OB Preadmission Or ondansetron (ZOFRAN) injection 4 mgJump to med 4 mg, Intravenous, EVERY 6 HOURS PRN, na usea, vomiting, Administer over 2-5 Minutes, Starting on 08/26/21 at 1432
This is Step 2 of OB nausea and vomiting management. Give if nausea not resolved 30 minutes after giving metoclopramide (REGLAN). If nausea is not resolved in 15 minutes, go to Step 3 (Compazine). Irritant.
OB Preadmission Group 4: prochlorperazine (COMPAZINE) injection 10 mgJump to med 10 mg, Intravenous, EVERY 6 HOURS PRN, n ausea, vomiting, Administer over 2 Minutes, Starting on 08/26/21 at 1432
This is Step 3 of OB nausea and vomiting management. Give if nausea not resol iva 15 minutes after giving ondansetron (ZOFRAN). If nausea is not resolved in 30 minutes, notify provider.
OB Preadmission Or prochlorperazine (COMPAZINE) tablet 10 mgJump to med 10 mg, Oral, EVERY 6 HOURS PRN, nausea, vomiting, Starting on 08/26/21 at 1432
This is Step 3 of OB nausea and vomiting management. Give if nausea not resolved 15 minutes after giving ondans etron (ZOFRAN). If nausea is not resolve d in 30 minutes, notify provider.
OB Preadmission Or prochlorperazine (COMPAZINE) suppository 25 mgJump to med 25 mg, Rectal, EVERY 12 HOURS PRN, nause a, vomiting, Starting on 08/26/21 at 1432
This is Step 3 of OB nausea and vomiting management. Give if nausea not resolved 15 minutes after giving ond ansetron (ZOFRAN). If nausea is not reso lved in 30 minutes, notify provider.
OB Preadmission documented in this encounter
--- OUTSIDE RECORDS SUMMARY | 2022-07-12 20:23 | XMS_ITS | Encounter Summary ---
:1995 Author Organization [place] Address [facility] [place] [address] Care Team Providers Name Role Phone Unavailable Primary Care Provider Unavailable Reason for Referral Consultation (Routine: Next available opening) - Pending Review Specialty Diagnoses / Procedures Referred By Contact Refer red To Contact Diagnoses related condition, antepartum Cortney Sethi [place] [address] Referral ID Status Reason Start Date Expiration Date Visits V isits Requested Authorized [id number] Pending 08/28/2021 08/28/2022 1 1 Review STERED NURSE CARDIAC Encounter Details Date Type Department Care Team Description 08/28/[address] [facility] Navdeep, Pregn amelia related Maternal Cortney Moran condition, Medicine Center [place] NO INFO FOUND antepar cheyanne (Primary [place] Dx) [address] [place] [address] [place] [address] [place] [address] Social History Tobacco Use Types Packs/Day Years Used Date Smoking Tobacco: Never Smokeless Tobacco: Never Alcohol Use Standard Drinks/Week Comments Not Currently 0 (1 standard drink = 0.6 oz pure alcoho l) Sex Assigned at Date Recorded Female 09/11/2021 7:15 AM REGISTERED NURSE CARDIAC COVID-19 Exposure Response Date Recorded In the last month, have you been in contact with No / Unsure 08/26/2021 1:50 PM REGISTERED NURSE CARDIAC someone who was confirmed or suspected to have Coronavirus / COVID-19? documented as of this encounter Plan of Treatment Upcoming Encounters Date Type Specialty Care Team Description 07/26/2022 Appointment Radiology. Dino Ramirez MD [address] [place], [place] [address] Liliana Wright MD [address] [facility] [address] [place], [place] [phone] 07/26/2022 Office Visit Maternal and Dion Ramirez MD [address] [place], [place] [id number] Medicine Liliana Wright MD [address] [facility] [address] [place], [place] [id number] 08/13/2022 Appointment Cardiology Dion Ramirez MD [address] [place] [address] (Wo rk) Scheduled Referrals Name Type Priority Associated Diagnoses Order S chedule Mat Med Ctr Referral Routine: Next related Expe cted: Referral - available opening condition, 08/28/2021 antepartum (Approximate), Expires: 02/24/2022 documented as of this encounter Visit Diagnoses Diagnosis related condition, antepartum - Primary documented in this encounter
--- OUTSIDE RECORDS SUMMARY | 2022-07-12 20:23 | XMS_ITS | Encounter Summary ---
:1995 Author Organization [place] Address [address] [place] [address] Care Team Providers Name Role Phone Hermelinda Reid MD Unavailable [phone] Valeria Bey MD Primary Care Provider Reason for Visit Reason Onset Date Comments Diabetes Education 08/28/2021 scheduling outreach Gestational Diabetes 08/28/2021 Encounter Details Date Type Department Care Team Description 08/28/2021 Telephone [facility] Valeria Bey MD Diabetes Education [facility] [address] (scheduling outreach); [place] [address] Gestational Diabetes [address] [place] [address] Social History Tobacco Use Types Packs/Day Years Used Date Smoking Tobacco: Never Smokeless Tobacco: Never Alcohol Use Standard Drinks/Week Comments Not Currently 0 (1 standard drink = 0.6 oz pure alcoho l) Sex Assigned at Date Recorded Female 09/11/2021 7:15 AM 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 documented as of this encounter Miscellaneous Notes Telephone Encounter - Dede Wall - 08/29/2021 12:26 PM CST Scheduled for 08/31. Dede Cheng Cement Mason Helper ITION TEACHER Telephone Encounter - Em Fairchild RN - 08/29/2021 10:02 AM CST Called pt. Explained that she needs diabetic ed with us. She was confused since she had diabetic ed with her previous clinic and did not understand she needed it with us. Please reach out to her again. She will be expecting your call. Em Fairchild RN ITION TEACHER Telephone Encounter - Valeria Bey MD - 08/29/2021 8:54 AM CST Please reach out to patient and educate her on the role of diabetes ed in her . She recently declined to schedule with them because she knows what she is doing, but has poor glucose control.DME will help us titrate her insulin throughout the rest of her and is a resource that helps improve outcomes. Please encourage her to schedule and report her values to them weekly. Valeria Bey MD ITION TEACHER Telephone Encounter - Dede Wall - 08/28/2021 11:23 AM CST Diabetes Education Scheduling Outreach #1: Call to patient to schedule. Patient declined to schedule. She stated that she has done this before and already knows what she needs to do. [facility] ITION TEACHER documented in this encounter Plan of Treatment Upcoming Encounters Date Type Specialty Care Team Description 07/26/2022 Appointment Radiology. Dion Ramirez MD [address] [facility] [address] [facility] [address] [place], [place] [phone] Liliana Wright MD [address] [facility] [address] [place], [place] [address] 07/26/2022 Office Visit Maternal and Dion Ramirez MD [address] [place], [place] [address] Medicine Liliana Wright MD [address] [facility] [address] [place], [place] [address] 08/13/2022 Appointment Cardiology Dion Ramirez MD [address] [place], [place] [phone] (Wo rk) documented as of this encounter Visit Diagnoses Not on filedocumented in this encounter Care Teams Fire Fighting Equipment Specialist Relationship Specialty Start Date End Date Valeria Bey MD PCP - General service delivery supervisor 08/29/21 08/29/21 [address] [place], [place] [phone] Hermelinda Reid MD Endocrinology, Diabetes, MD and Metabolism [address] [facility] [address] [place], [place] [phone] documented as of this encounter
--- OUTSIDE RECORDS SUMMARY | 2022-07-12 20:23 | XMS_ITS | Encounter Summary ---
:1995 Author Organization [place] Address [address] [place] [address]. [place] [address] Care Team Providers Name Role Phone Unavailable Primary Care Provider Unavailable Reason for Referral Patient Education (Routine: Next available opening) - Closed Specialty Diagnoses / Procedures Referred By Contact Refer red To Contact Diabetes Education Diagnoses Type 2 diabetes mellitus (H) High-risk , unspecified trimester Valeria Bey MD [facility] [address] [facility] [address] [place] [address] Phone: Referral ID Status Reason Start Date Expiration Date Visits Requ ested Visits Authorized [id number] Closed 08/28/2021 08/28/2022 1 1 onsultation (Urgent: 3-5 Days) - Closed Specialty Diagnoses / Procedures Referred By Contact Refer red To Contact Endocrinology, Diagnoses Type 2 diabetes mellitus (H) High-risk , unspecified trimester Valeria Bey MD [facility] Diabetes, and [address] [facility] [address] [place] [facility] [address] Phone: Referral ID Status Reason Start Date Expiration Date Visits Requ ested Visits Authorized [id number] Closed 08/28/2021 08/28/2022 1 1 RANCE AGENTS SUPERVISOR Reason for Visit Reason Onset Date Comments Transferred OB Care 08/27/2021 Encounter Details Date Type Department Care Team Description 08/27/2021 [facility] Valeria Bey MD Transferred OB Care [facility] [address] [place] [address] [place] [address] Social History Tobacco Use Types Packs/Day Years Used Date Smoking Tobacco: Never Smokeless Tobacco: Never Alcohol Use Standard Drinks/Week Comments Not Currently 0 (1 standard drink = 0.6 oz pure alcoho l) Sex Assigned at Date Recorded Female 09/11/2021 7:15 AM INSURANCE AGENTS SUPERVISOR COVID-19 Exposure Response Date Recorded In the last month, have you been in contact with No / Unsure 08/26/2021 1:50 PM INSURANCE AGENTS SUPERVISOR someone who was confirmed or suspected to have Coronavirus / COVID-19? documented as of this encounter Miscellaneous Notes Telephone Encounter - Kylah Lund RN - 08/28/2021 9:37 AM CST Spoke to pt added referrals. Sent to scheduling . .Kylah Prado RN BSN RANCE AGENTS SUPERVISOR Telephone Encounter - Latisha Velazquez RN - 08/28/2021 9:25 AM CST Fine to transfer. Please set her up immediately with endocrine and diabetes ed. Thank you, Valeria Bey MD RANCE AGENTS SUPERVISOR Telephone Encounter - Latisha Velazquez RN - 08/27/2021 3:30 PM CST Patient is requesting to transfer care to [facility] from her previous clinic in [place]. ([facility]) Due to high risk . Pt states she has been compliant with all appointments. Per [facility] protocol, all transfer patients that are equal to or greater than 24 weeks needprior approval from [facility] Ticket Sorter before scheduling any appointments. 2 Para 1 EDC 10/09/21 U/S done? yes Previous C-sec? yes List all major health problems: Type 2 DM on insulin List all complications of past deliveries: ( Ask specifically about Gestational Diabetes, HTN and preeclampsia) Pre eclampsia List all current issues: (Again, ask specifically about Gestational Diabetes, HTN and preeclampsia) high sugar levels List current medication list: insulin Informed pt that will need all records, labs and ultrasound reports. To continue care where she is until transfer complete. Per protocol, message routed to MD on-call for direction. Latisha Velazquez, RN RANCE AGENTS SUPERVISOR documented in this encounter Plan of Treatment Upcoming Encounters Date Type Specialty Care Team Description 07/26/2022 Appointment Radiology. Dion Ramirez MD [address] [place], [place] [phone] Liliana Wright MD [address] [phone] 07/26/2022 Office Visit Maternal and Dion Ramirez MD [address] [place], [place] [address] Medicine Liliana Wright MD [address] [id number] 08/13/2022 Appointment Cardiology Dion Ramirez MD [address] [place], [place] [address] (Wo rk) Scheduled Referrals Name Type Priority Associated Diagnoses Order S chedule Adult Endocrinology Referral Urgent: 3-5 Days Type 2 diabetes E xpected: Referral mellitus (H) 08/28/2021 High-risk , (Approx imate), unspecified Expires: trimester 08/28/2022 AMB Adult Diabetes Referral Routine: Next Type 2 diabetes Expec sinan: Educator Referral available opening mellitus (H) 08/28/2021 High-risk , (Approx imate), unspecified Expires: trimester 08/28/2022 documented as of this encounter Visit Diagnoses Diagnosis Type 2 diabetes mellitus (H) - Primary Type II or unspecified type diabetes jo-ann litus without mention of complication, not stated as uncontrolled High-risk , unspecified trimest er documented in this encounter
[2022-07-12 20:51] LABS: Basophils Absolute Auto 0.03 K/uL (0.00-0.30); Basophils Percent Auto 0.3 % (0.0-3.0); Eosinophils Absolute Auto 0.01 K/uL (0.00-0.50); Eosinophils Percent Auto 0.1 % (0.0-7.0); Hematocrit 33.5 % (33.0-51.0); Hemoglobin* 10.3 gm/dL (12.0-16.0); Immature Granulocytes Abs Auto 0.06 K/uL (0.00-0.30); Immature Granulocytes Pct Auto 0.6 %; Lymphocytes Absolute Auto 2.31 K/uL (0.90-2.90); Lymphocytes Percent Auto 21.4 % (20-44); Mean Corpuscular HGB Conc 31 gm/dL (32-36); Mean Corpuscular Hemoglobin 23 pg (26-34); Mean Corpuscular Volume 74 fL (80-100); Monocytes Percent Auto 7.6 % (0.0-11.0); Neutrophils Absolute Auto 7.55 K/uL (1.7-7.0); Platelet Count* 281 K/uL (140-440); RDW Coefficient of Variation % 17.8 % (11.5-15.5); Red Blood Count 4.51 m/uL (4.00-5.20); White Blood Count* 10.78 K/uL (4.50-11.00)
[2022-07-12 21:00] VITALS: BP 128/75; PULSE 73; O2SAT 100
[2022-07-12 21:01] LABS: Slide Review Reflex No
[2022-07-12] MEDS: 0.9 % SODIUM CHLORIDE 1000 ml 1,000 ML IV (21:04)
[2022-07-12 21:08] LABS: PCR FLU A Negative PCR FLU A (Negative); PCR FLU B Negative PCR FLU B (Negative); PCR RSV Negative PCR RSV (Negative)
--- NOTE | 2022-07-12 21:16 | ED.WEAKNESS ---
HPI - Weakness General Chief complaint: Weakness <Filiberto Acosta MD - Last Filed: 07/12/22 21:33> Stated complaint: Weakness, Blood Sugar over 200 last 3-4 days <Filiberto Acosta MD - Last Filed: 07/12/22 21:33> Time Seen by Provider: 07/12/22 20:28 <Filiberto Acosta MD - Last Filed: 07/12/22 21:33> History of Present Illness HPI Narrative: 26-year-old woman presenting to the emergency department accompanied by her significant other and young child noting herself to be 19 weeks . Has struggled with vomiting in . Her nauseated today in particular. Over the last 3 days has been feeling generally weak and wiped. They have had trouble controlling blood sugars. Does have a history of diabetes and treating with insulin. Her blood sugar was 260 today and sounds like has been similar over the last few days. No dysuria frequency urgency apparently. She had no fever. No cough or cold symptoms but has felt a little short of air sometimes. No chest pain. As I am examining her she is doing some shallow more rapid breathing suddenly which actually looks like swallowing. Her significant other points this out as a sign that perhaps will be entering into a panic induced seizure like episode. She does not have a diagnosis of epilepsy. He reports that they have been evaluated in the emergency department number of occasions and she has these sorts of seizure-like episodes that she will wake from with painful stimuli that sometimes he will induce with a pinch. She does not apparently recall these events but apparently does demonstrate some postictal behavior. It is not clear to me that the term pseudo-seizure has been used before. I ask about whether neurology has been consulted and he mentions a number of times how they have only been directed to the emergency department. It does not sound as though any outpatient follow-up as occurred. She has not having constant abdominal pain but has been having some lower abdominal cramping. No unusual vaginal discharge i.e. no blood. There is a history in prior 2? Pregnancies of preeclampsia. She does have a little headache now. Admits to being rather thirsty. Prior to this interview notified by nursing that demonstrating some unusual behavior. Just seems rather distant and not responding to questions. Blood pressures were noted to be reassuring blood sugar on arrival at 191. They had dosed insulin for measurements of 261. <Filiberto Acosta MD - Last Filed: 07/12/22 21:33> Related Data Home medications: Home Medications Medication Instructions Recorded Confirmed insulin NPH isoph U-100 human 100 unit subcut 04/16/22 unit/mL subcutaneous suspension (Humulin N NPH U-100 Insulin (isophane susp)) insulin regular human 100 unit/mL 07/12/22 injection solution (Humulin R Regular U-100 Insulin) ondansetron HCl 4 mg tablet mg 07/12/22 <Filiberto Acosta MD - Last Filed: 07/12/22 21:33> Allergies/Adverse reactions: Allergies Allergy/AdvReac Type Severity Reaction Status Date / Time No Known Drug Allergies Allergy Verified 07/12/22 20:34 <Filiberto Acosta MD - Last Filed: 07/12/22 21:33> Review of Systems Status of ROS: Reports: 10 or more systems reviewed and unremarkable except as noted in History and below <Filiberto Acosta MD - Last Filed: 07/12/22 21:33> [facility] Medical History: Medical History Diabetes mellitus type 1 History of pre-eclampsia History of delivery Obesity <Filiberto Acosta MD - Last Filed: 07/12/22 21:33> Surgical History: Surgical History History of delivery <Filiberto Acosta MD - Last Filed: 07/12/22 21:33> Social History: Social History Smoking Status: Never smoker Do you use any of these nicotine containing products: None How often do you have a drink containing alcohol: never AUDIT-C Alcohol total score: 0 Non-prescribed substance use: denies use service: No <Filiberto Acosta MD - Last Filed: 07/12/22 21:33> Exam Narrative: Exam Narrative: Flattened affect. Does smile in response to joke. Needs prompting to answer questions or volunteer information. Somewhat staring otherwise. Skin is warm and dry. No rash. No lower extremity edema. Hands and feet are quite petite. Well-perfused. 1 beat clonus. Cranial nerves 2-12 intact. She is able to move all extremities without difficulty other than just generally seems a little weak. Oropharynx is sticky. Limited effort at opening her mouth. Neck is supple without lymphadenopathy. With assistance is able to get to sitting position. Holds herself. Lungs are clear. Abdomen is obese, soft. There is moderate tenderness without peritoneal signs to palpation in the left adnexal area. She had indicated some pain in the right low abdomen cramping in nature but not demonstrated on physical exam. Cardiovascular with an elevated rate in a regular rhythm. <Filiberto Acosta MD - Last Filed: 07/12/22 21:33> Const: Vital Signs, click to edit/add: Vital Signs - 24 hr 07/12/22 20:22 07/12/22 21:00 Temperature 98.8 F Pulse Rate [Right Pulse Oximeter] 92 73 Respiratory Rate 28 H Blood Pressure [Le ft Upper Arm] 132/81 128/75 Pulse Oximetry 100 100 Oxygen Delivery Me thod Room Air <Filiberto Acosta MD - Last Filed: 07/12/22 21:33> Vital Signs, click to edit/add: Vital Signs - 24 hr 07/12/22 20:22 07/12/22 21:00 Temperature 98.8 F Pulse Rate [Right Pulse Oximeter] 92 73 Respiratory Rate 28 H Blood Pressure [Le ft Upper Arm] 132/81 128/75 Pulse Oximetry 100 100 Oxygen Delivery Me thod Room Air <Trinity Obrien MD - Last Filed: 07/12/22 22:13> Documenting provider has reviewed patient's vital signs: yes <Filiberto Acosta MD - Last Filed: 07/12/22 21:33> Course Vital Signs Vital signs: Initial Vital Signs Temperature 98.8 F 07/12/22 20:22 Temperature Source Temporal Artery Scan 07/12/22 20:22 Pulse Rate 92 07/12/22 20:22 Respiratory Rate 28 H 07/12/22 20:22 Blood Pressure 132/81 07/12/22 20:22 Blood Pressure Mean 98 07/12/22 20:22 Blood Pressure Position Supine 07/12/22 20:22 Pulse Oximetry 100 07/12/22 20:22 Oxygen Delivery Method 07/12/22 20:22 Vital Signs Temperature 98.8 F 07/12/22 20:22 Pulse Rate 92 07/12/22 20:22 Respiratory Rate 28 H 07/12/22 20:22 Blood Pressure 132/81 07/12/22 20:22 Pulse Oximetry 100 07/12/22 20:22 Oxygen Delivery Method 07/12/22 20:22 Temperature 98.8 F 07/12/22 20:22 Pulse Rate 73 07/12/22 21:00 Respiratory Rate 28 H 07/12/22 20:22 Blood Pressure 128/75 07/12/22 21:00 Pulse Oximetry 100 07/12/22 21:00 Oxygen Delivery Method 07/12/22 20:22 <Filiberto Acosta MD - Last Filed: 07/12/22 21:33> Initial Vital Signs Temperature 98.8 F 07/12/22 20:22 Temperature Source Temporal Artery Scan 07/12/22 20:22 Pulse Rate 92 07/12/22 20:22 Respiratory Rate 28 H 07/12/22 20:22 Blood Pressure 132/81 07/12/22 20:22 Blood Pressure Mean 98 07/12/22 20:22 Blood Pressure Position Supine 07/12/22 20:22 Pulse Oximetry 100 07/12/22 20:22 Oxygen Delivery Method 07/12/22 20:22 Vital Signs Temperature 98.8 F 07/12/22 20:22 Pulse Rate 92 07/12/22 20:22 Respiratory Rate 28 H 07/12/22 20:22 Blood Pressure 132/81 07/12/22 20:22 Pulse Oximetry 100 07/12/22 20:22 Oxygen Delivery Method 07/12/22 20:22 Temperature 98.8 F 07/12/22 20:22 Pulse Rate 73 07/12/22 21:00 Respiratory Rate 28 H 07/12/22 20:22 Blood Pressure 128/75 07/12/22 21:00 Pulse Oximetry 100 07/12/22 21:00 Oxygen Delivery Method 07/12/22 20:22 <Trinity Obrien MD - Last Filed: 07/12/22 22:13> MDM - Weakness MDM Narrative Medical decision making narrative: IV will be placed. Is receiving L of normal saline. Labs pending. Would wonder about possible influenza or COVID. This result as noted still pending, as is urinalysis. Monitoring in the emergency department for further seizure-like activity as well. Anticipating handoff at change of shift. <Filibreto Acosta MD - Last Filed: 07/12/22 21:33> IV will be placed. Is receiving L of normal saline. Labs pending. Would wonder about possible influenza or COVID. This result as noted still pending, as is urinalysis. Monitoring in the emergency department for further epileptic Dr. Obrien: 9:15 p.m.: Bedside ultrasound confirming noyola IUP consistent with reported gestational age, very active movement with normal fluid volumes appreciated. Gestational age is prior to viability but active cardiac motion and 4 chambered heart noted. Rate at the time of my exam was 170. Update Sterilely: And 3:00 p.m.. UA reviewed, no signs of infection. All lab findings reviewed with patient, and child. Discussed signs and symptoms of emotional stress, alarm symptoms that would warrant repeat evaluation. Confirm that she has an appointment next week with her Ob provider. All questions answered. No additional concerns. <Trinity Obrien MD - Last Filed: 07/12/22 22:13> Lab Data Attestation: I reviewed the patient's lab results. <Filiberto Acosta MD - Last Filed: 07/12/22 21:33> I reviewed the patient's lab results. <Trinity Obrien MD - Last Filed: 07/12/22 22:13> Labs: Lab Results 07/12/22 07/12/22 07/12/22 Range/Units 20:22 20:25 20:25 WBC 10.78 (4.50-11.00) K/uL RBC 4.51 (4.00-5.20) m/uL Hgb 10.3 L (12.0-16.0) gm/dL Hct 33.5 (33.0-51.0) % MCV 74 L (80-100) fL MCH 23 L (26-34) pg MCHC 31 L (32-36) gm/dL RDW Coeff of Liat 17.8 H (11.5-15.5) % Plt Count 281 (140-440) K/uL Neut % (Auto) 70.0 (42.0-72.0) % Lymph % (Auto) 21.4 (20-44) % [place] % (Auto) 7.6 (0.0-11.0) % Eos % (Auto) 0.1 (0.0-7.0) % Baso % (Auto) 0.3 (0.0-3.0) % Neut # (Auto) 7.55 H (1.7-7.0) K/uL Lymph # (Auto) 2.31 (0.90-2.90) K/uL [place] # (Auto) 0.80 (0.00-0.90) K/UL Eos # (Auto) 0.01 (0.00-0.50) K/uL Baso # (Auto) 0.03 (0.00-0.30) K/uL Abs Immat Gran (auto) 0.06 (0.00-0.30) K/uL Imm/Tot Granulo (auto) 0.6 % Sodium 136 (135-149) mmol/L Potassium 3.9 (3.6-5.1) mmol/L Chloride 109 (96-114) mmol/L Carbon Dioxide 21 (20-32) mmol/L BUN 7 (5-24) mg/dL Creatinine 0.4 L (0.5-1.5) mg/dL Estimated Creat Clear 167.09 Estimated GFR 139 ml/min Glucose 205 H (60-115) mg/dL Calcium 8.7 (8.4-10.6) mg/dL Total Bilirubin 0.2 (0.1-1.5) mg/dL Direct Bilirubin 0.1 (0.0-0.5) mg/dL AST 14 (12-35) U/L ALT 13 (4-35) U/L Alkaline Phosphatase 85 (40-150) U/L C-Reactive Protein 2.4 H (0.5-1.0) mg/dL Total Protein 6.9 (6.0-8.3) g/dL Albumin 3.7 (3.3-5.0) g/dL Urine Color (Yellow) Urine Appearance (Clear) Urine pH (5.0-8.5) Ur Specific [place] (1.000-1.030) Urine Protein (Negative) Urine Glucose (UA) (Negative) Urine Ketones (Negative) Urine Blood (Negative) Urine Nitrite (Negative) Urine Bilirubin (Negative) Urine Urobilinogen (0.2-1.0) Ur Leukocyte Esterase (Negative) Urine RBC (0-2) Urine WBC (0-5) Ur Squamous Epith Cells (None-Few) Urine Bacteria (None) Urine Opiates Screen (Negative) Ur Oxycodone Screen (Negative) Urine Methadone Screen (Negative) Ur Propoxyphene Screen (Negative) Ur Barbiturates Screen (Negative) U Tricyclic Antidepress (Negative) Ur Phencyclidine Scrn (Negative) Ur Amphetamines Screen (Negative) U Methamphetamines Scrn (Negative) U Benzodiazepines Scrn (Negative) Urine Cocaine Screen (Negative) U Marijuana (THC) Screen (Negative) Ur Drug Screen Comment SARS-CoV-2 (PCR) Negative SARS-CoV-2 (Negative) Influenza Type A (PCR) Negative PCR FLU A (Negative) Influenza Type B (PCR) Negative PCR FLU B (Negative) RSV (PCR) Negative PCR RSV (Negative) POC Troponin I (0.01-0.04) ng/ml 07/12/22 07/12/22 07/12/22 Range/Units 20:25 21:20 21:30 WBC (4.50-11.00) K/uL RBC (4.00-5.20) m/uL Hgb (12.0-16.0) gm/dL Hct (33.0-51.0) % MCV (80-100) fL MCH (26-34) pg MCHC (32-36) gm/dL RDW Coeff of Liat (11.5-15.5) % Plt Count (140-440) K/uL Neut % (Auto) (42.0-72.0) % Lymph % (Auto) (20-44) % [place] % (Auto) (0.0-11.0) % Eos % (Auto) (0.0-7.0) % Baso % (Auto) (0.0-3.0) % Neut # (Auto) (1.7-7.0) K/uL Lymph # (Auto) (0.90-2.90) K/uL [place] # (Auto) (0.00-0.90) K/UL Eos # (Auto) (0.00-0.50) K/uL Baso # (Auto) (0.00-0.30) K/uL Abs Immat Gran (auto) (0.00-0.30) K/uL Imm/Tot Granulo (auto) % Sodium (135-149) mmol/L Potassium (3.6-5.1) mmol/L Chloride (96-114) mmol/L Carbon Dioxide (20-32) mmol/L BUN (5-24) mg/dL Creatinine (0.5-1.5) mg/dL Estimated Creat Clear Estimated GFR ml/min Glucose (60-115) mg/dL Calcium (8.4-10.6) mg/dL Total Bilirubin (0.1-1.5) mg/dL Direct Bilirubin (0.0-0.5) mg/dL AST (12-35) U/L ALT (4-35) U/L Alkaline Phosphatase (40-150) U/L C-Reactive Protein (0.5-1.0) mg/dL Total Protein (6.0-8.3) g/dL Albumin (3.3-5.0) g/dL Urine Color Yellow (Yellow) Urine Appearance Cloudy A (Clear) Urine pH 6.0 (5.0-8.5) Ur Specific [place] >= 1.030 (1.000-1.030) Urine Protein Negative (Negative) Urine Glucose (UA) 1+ A (Negative) Urine Ketones Trace A (Negative) Urine Blood Negative (Negative) Urine Nitrite Negative (Negative) Urine Bilirubin Negative (Negative) Urine Urobilinogen 0.2 (0.2-1.0) Ur Leukocyte Esterase Negative (Negative) Urine RBC 0-2 (0-2) Urine WBC 0-2 (0-5) Ur Squamous Epith Cells Few (None-Few) Urine Bacteria Few A (None) Urine Opiates Screen Negative (Negative) Ur Oxycodone Screen Negative (Negative) Urine Methadone Screen Negative (Negative) Ur Propoxyphene Screen Negative (Negative) Ur Barbiturates Screen Negative (Negative) U Tricyclic Antidepress Negative (Negative) Ur Phencyclidine Scrn Negative (Negative) Ur Amphetamines Screen Negative (Negative) U Methamphetamines Scrn Negative (Negative) U Benzodiazepines Scrn Negative (Negative) Urine Cocaine Screen Negative (Negative) U Marijuana (THC) Screen Negative (Negative) Ur Drug Screen Comment See Note SARS-CoV-2 (PCR) (Negative) Influenza Type A (PCR) (Negative) Influenza Type B (PCR) (Negative) RSV (PCR) (Negative) POC Troponin I 0.00 L (0.01-0.04) ng/ml <Filiberto Acosta MD - Last Filed: 07/12/22 21:33> Lab Results 07/12/22 07/12/22 07/12/22 Range/Units 20:22 20:25 20:25 WBC 10.78 (4.50-11.00) K/uL RBC 4.51 (4.00-5.20) m/uL Hgb 10.3 L (12.0-16.0) gm/dL Hct 33.5 (33.0-51.0) % MCV 74 L (80-100) fL MCH 23 L (26-34) pg MCHC 31 L (32-36) gm/dL RDW Coeff of Liat 17.8 H (11.5-15.5) % Plt Count 281 (140-440) K/uL Neut % (Auto) 70.0 (42.0-72.0) % Lymph % (Auto) 21.4 (20-44) % [place] % (Auto) 7.6 (0.0-11.0) % Eos % (Auto) 0.1 (0.0-7.0) % Baso % (Auto) 0.3 (0.0-3.0) % Neut # (Auto) 7.55 H (1.7-7.0) K/uL Lymph # (Auto) 2.31 (0.90-2.90) K/uL [place] # (Auto) 0.80 (0.00-0.90) K/UL Eos # (Auto) 0.01 (0.00-0.50) K/uL Baso # (Auto) 0.03 (0.00-0.30) K/uL Abs Immat Gran (auto) 0.06 (0.00-0.30) K/uL Imm/Tot Granulo (auto) 0.6 % Sodium 136 (135-149) mmol/L Potassium 3.9 (3.6-5.1) mmol/L Chloride 109 (96-114) mmol/L Carbon Dioxide 21 (20-32) mmol/L BUN 7 (5-24) mg/dL Creatinine 0.4 L (0.5-1.5) mg/dL Estimated Creat Clear 167.09 Estimated GFR 139 ml/min Glucose 205 H (60-115) mg/dL Calcium 8.7 (8.4-10.6) mg/dL Total Bilirubin 0.2 (0.1-1.5) mg/dL Direct Bilirubin 0.1 (0.0-0.5) mg/dL AST 14 (12-35) U/L ALT 13 (4-35) U/L Alkaline Phosphatase 85 (40-150) U/L C-Reactive Protein 2.4 H (0.5-1.0) mg/dL Total Protein 6.9 (6.0-8.3) g/dL Albumin 3.7 (3.3-5.0) g/dL Urine Color (Yellow) Urine Appearance (Clear) Urine pH (5.0-8.5) Ur Specific [place] (1.000-1.030) Urine Protein (Negative) Urine Glucose (UA) (Negative) Urine Ketones (Negative) Urine Blood (Negative) Urine Nitrite (Negative) Urine Bilirubin (Negative) Urine Urobilinogen (0.2-1.0) Ur Leukocyte Esterase (Negative) Urine RBC (0-2) Urine WBC (0-5) Ur Squamous Epith Cells (None-Few) Urine Bacteria (None) Urine Opiates Screen (Negative) Ur Oxycodone Screen (Negative) Urine Methadone Screen (Negative) Ur Propoxyphene Screen (Negative) Ur Barbiturates Screen (Negative) U Tricyclic Antidepress (Negative) Ur Phencyclidine Scrn (Negative) Ur Amphetamines Screen (Negative) U Methamphetamines Scrn (Negative) U Benzodiazepines Scrn (Negative) Urine Cocaine Screen (Negative) U Marijuana (THC) Screen (Negative) Ur Drug Screen Comment SARS-CoV-2 (PCR) Negative SARS-CoV-2 (Negative) Influenza Type A (PCR) Negative PCR FLU A (Negative) Influenza Type B (PCR) Negative PCR FLU B (Negative) RSV (PCR) Negative PCR RSV (Negative) POC Troponin I (0.01-0.04) ng/ml 07/12/22 07/12/22 07/12/22 Range/Units 20:25 21:20 21:30 WBC (4.50-11.00) K/uL RBC (4.00-5.20) m/uL Hgb (12.0-16.0) gm/dL Hct (33.0-51.0) % MCV (80-100) fL MCH (26-34) pg MCHC (32-36) gm/dL RDW Coeff of Liat (11.5-15.5) % Plt Count (140-440) K/uL Neut % (Auto) (42.0-72.0) % Lymph % (Auto) (20-44) % [place] % (Auto) (0.0-11.0) % Eos % (Auto) (0.0-7.0) % Baso % (Auto) (0.0-3.0) % Neut # (Auto) (1.7-7.0) K/uL Lymph # (Auto) (0.90-2.90) K/uL [place] # (Auto) (0.00-0.90) K/UL Eos # (Auto) (0.00-0.50) K/uL Baso # (Auto) (0.00-0.30) K/uL Abs Immat Gran (auto) (0.00-0.30) K/uL Imm/Tot Granulo (auto) % Sodium (135-149) mmol/L Potassium (3.6-5.1) mmol/L Chloride (96-114) mmol/L Carbon Dioxide (20-32) mmol/L BUN (5-24) mg/dL Creatinine (0.5-1.5) mg/dL Estimated Creat Clear Estimated GFR ml/min Glucose (60-115) mg/dL Calcium (8.4-10.6) mg/dL Total Bilirubin (0.1-1.5) mg/dL Direct Bilirubin (0.0-0.5) mg/dL AST (12-35) U/L ALT (4-35) U/L Alkaline Phosphatase (40-150) U/L C-Reactive Protein (0.5-1.0) mg/dL Total Protein (6.0-8.3) g/dL Albumin (3.3-5.0) g/dL Urine Color Yellow (Yellow) Urine Appearance Cloudy A (Clear) Urine pH 6.0 (5.0-8.5) Ur Specific [place] >= 1.030 (1.000-1.030) Urine Protein Negative (Negative) Urine Glucose (UA) 1+ A (Negative) Urine Ketones Trace A (Negative) Urine Blood Negative (Negative) Urine Nitrite Negative (Negative) Urine Bilirubin Negative (Negative) Urine Urobilinogen 0.2 (0.2-1.0) Ur Leukocyte Esterase Negative (Negative) Urine RBC 0-2 (0-2) Urine WBC 0-2 (0-5) Ur Squamous Epith Cells Few (None-Few) Urine Bacteria Few A (None) Urine Opiates Screen Negative (Negative) Ur Oxycodone Screen Negative (Negative) Urine Methadone Screen Negative (Negative) Ur Propoxyphene Screen Negative (Negative) Ur Barbiturates Screen Negative (Negative) U Tricyclic Antidepress Negative (Negative) Ur Phencyclidine Scrn Negative (Negative) Ur Amphetamines Screen Negative (Negative) U Methamphetamines Scrn Negative (Negative) U Benzodiazepines Scrn Negative (Negative) Urine Cocaine Screen Negative (Negative) U Marijuana (THC) Screen Negative (Negative) Ur Drug Screen Comment See Note SARS-CoV-2 (PCR) (Negative) Influenza Type A (PCR) (Negative) Influenza Type B (PCR) (Negative) RSV (PCR) (Negative) POC Troponin I 0.00 L (0.01-0.04) ng/ml <Trinity Obrien MD - Last Filed: 07/12/22 22:13> Discharge Plan Discharge Clinical Impression: Feared complaint without diagnosis, Iron (Fe) deficiency anemia, Weakness <Filiberto Acosta MD - Last Filed: 07/12/22 21:33> Patient Disposition: Home w/ Parent or Adult <Filiberto Acosta MD - Last Filed: 07/12/22 21:33> Condition: Improved <Filiberto Acosta MD - Last Filed: 07/12/22 21:33> Instructions: Weakness (ED) <Filiberto Acosta MD - Last Filed: 07/12/22 21:33> Additional Instructions: All workup today is reassuring. This is great news. The baby seems to be growing well. Your labs were normal. We do not appreciate any signs of infection or additional concern. I would like for you to drink plenty of fluids, rest when you can, ask for help when you feel like you need it. Please keep your appointment with your OB next week. <Filiberto Acosta MD - Last Filed: 07/12/22 21:33> Activity Level: No Restrictions <Filiberto Acosta MD - Last Filed: 07/12/22 21:33> No Restrictions <Trinity Obrien MD - Last Filed: 07/12/22 22:13> Prescriptions: No Action Humulin N NPH U-100 Insulin 100 unit/mL suspension SUBCUT Label Comments: INJECT 12 UNITS SUBCUTANEOUS BEFORE BEDTIME ondansetron HCl 4 mg tablet Label Comments: TAKE 1 TABLET BY MOUTH EVERY 6-8 HOURS NEEDED Humulin R Regular U-100 Insuln 100 unit/mL solution Label Comments: INJECT 14 UNITS UNDER THE SKIN 20-30 MINUTES BEFORE BREAKFAST AND 19 UNITS 20-30 MINUTES BEFORE EVENING MEAL. <Filiberto Acosta MD - Last Filed: 07/12/22 21:33> Follow Up/Referrals: Traci Rubi DO [Primary Care Provider] - <Filiberto Acosta MD - Last Filed: 07/12/22 21:33> Stand Alone Forms: MyHealth Info Instructions <Filiberto Acosta MD - Last Filed: 07/12/22 21:33>
--- OUTSIDE RECORDS SUMMARY | 2022-07-12 21:16 | XMS_ITS | Encounter Summary ---
:1995 Author Organization [employer] Address [address] [address] Phone Care Team Providers Name Role Phone Unavailable Primary Care Provider Unavailable Reason for Visit Reason Comments Seizure- New Onset Encounter Details Date Type Department Care Team Description 04/15/2022 Emergency [facility]-Hailey Dunlap, Pseudoseizure ([facility] EMERGENCY MD Dx) DEPARTMENT [address] [place] [address] [place], [place] [id number] (Wo rk) Social History Tobacco Use Types [...] through Care Everywhere. Conversion Disorder (Conversion Reaction) (Turkish)documented in this encounter Discharge Disposition Disposition Code Departure Means Destination Home and/or Self Snf documented in this encounter ED Notes Hailey Ziegler MD - 04/15/2022 10:19 PM CDT Patient: Valery Scott Means of Arrival: Ambulance Chief Complaint: Seizure- New Onset History of Present Illness: HPI Valery Scott is a 26-year-old woman with a history of diabetes who is currently about 6 weeks (based on 03/28/22 SOIL FERTILITY EXTENSION SPECIALIST note from [facility], where she gets care). She comes in today because of possible seizure. Per , who provides bulk of the history, as patient is quite anxious here. Not able to file out of history, he states that they were driving home down to the [facility] where they live and were just [...] Appearance Slightly Cloudy (A) Clear Urine Specific [place] 1.015 1.003 - 1.035 Urine pH 5.5 [...] Result time 04/15/22 21:47:15 Final result by Serg Cameron MD (04/15/22 21:47:15) Narrative: This document [...] (primary encounter diagnosis) Plan: Discharge Prescriptions None [facility] Valery Scott is a 26-year-old who [...] URINE MICROSCOPIC EXAMINATION (04/15/2022 7:58 PM CDT) [facility] Method Time Signature Urine WBC's 3-8 0 - 8 /HPF 04/15/2022 [facility] 8:21 PM T HOSPITAL LABORATORY Urine RBC's 0-3 0 - 3 /HPF 04/15/2022 [facility] 8:21 PM T [facility] LABORATORY Urine Squamous Moderate /HPF 04/15/2022 [facility] Epithelial 8:21 PM CDT HOSPITAL Cells LABORATORY Specimen Anatomical Collection Method Collection Time Receive d Time (Source) Location / / Volume Laterality Urine YARN TESTER Non-blood 04/15/2022 7:58 PM 04/15/20 22 8:01 MID-STREAM URINE collection / CDT PM CDT SPECIMEN OBTAINED Unknown BY CLEAN CATCH PROCEDURE / Unknown Narrative [facility] LABORATORY - 12/2021 8:21 PM CDT Urine Culture is not indicated. Hailey Ziegler MD EC URINE ORDERABLES Performing Organization Address City/State/ZIP Code Phon e Number [address] [place] [address] LABORATORY (ABNORMAL) URINALYSIS, REFLEX TO CULTURE (04/15/2022 7:58 PM CDT) [facility] Method Time Signature Urine Color Yellow Straw, 04/15/2022 [facility] Yellow, 8:21 PM T HOSPITAL [facility]ima LABORATORY Urine Slightly Clear 04/15/2022 [facility] Appearance Cloudy (A) 8:21 PM T HOSPITAL LABORATORY Urine Specific 1.015 1.003 - 04/15/2022 [facility] [place] 1.035 8:21 PM T HOSPITAL LABORATORY Urine pH 5.5 5.0 - 8.0 04/15/2022 [facility] 8:21 PM CDT HOSPITAL LABORATORY Urine Glucose Negative Negative 04/15/2022 [facility] 8:21 PM [facility] LABORATORY Urine Ketones 15 (A) Negative 04/15/2022 [facility] 8:21 PM [facility] LABORATORY Urine Protein Negative Negative, 04/15/2022 [facility] Trace mg/dL 8:21 PM [facility] Urine Nitrites Negative Negative 04/15/2022 [facility] 8:21 PM [facility] Urine Trace (A) Negative 04/15/2022 [facility] Leukocyte 8:21 PM [facility] Esterase LABORATORY Specimen Anatomical Collection Method Collection Time Receive d Time (Source) Location / / Volume Laterality Urine YARN TESTER Non-blood 04/15/2022 7:58 PM 04/15/20 8:01 MID-STREAM URINE collection / CDT PM CDT SPECIMEN OBTAINED Unknown BY CLEAN CATCH PROCEDURE / Unknown Hailey Ziegler MD EC URINE ORDERABLES Performing Organization Address City/[facility]/ZIP [facility] [place] Phon e Number [address] [address] LABORATORY MAGNESIUM (04/15/2022 7:52 PM CDT) P athologist Signature Magnesium 1.9 1.8 - 2.7 04/15/2022 [facility] mg/dL 8:20 PM [facility] LABORATORY Specimen Anatomical Collection Method / Collection Time Recei iva Time (Source) Location / Volume Laterality Blood BLOOD SPECIMEN / Venipuncture / 04/15/2022 7:52 2021 7:59 Unknown Unknown PM CDT PM CDT Hailey Ziegler MD EC CHEMISTRY ORDERABLES Performing Organization Address City/State/ZIP Code Phon e Number [address] [address] LABORATORY (ABNORMAL) COMPREHENSIVE METABOLIC PANEL (04/15/2022 7:52 PM CDT) P athologist Signature Sodium 138 134 - 143 04/15/2022 [facility] mEq/L 8:20 PM [facility] LABORATORY Potassium 3.9 3.4 - 5.1 04/15/2022 [facility] mEq/L 8:20 PM [facility] LABORATORY Chloride 107 99 - 110 04/15/2022 [facility] mEq/L 8:20 PM [facility] Carbon Dioxide 20 19 - 29 04/15/2022 [facility] mEq/L 8:20 PM [facility] Anion Gap 11.0 3.0 - 15.0 04/15/2022 [facility] mEq/L 8:20 PM [facility] Blood Urea 7 5 - 24 04/15/2022 [facility] Nitrogen mg/dL 8:20 PM [facility] Creatinine 0.52 0.40 - 04/15/2022 [facility] 1.00 mg/dL 8:20 PM [facility] Glomerular >60 >60 04/15/2022 [facility] Filtration Rate mL/min/1.7 8:20 PM [facility] 3 m*2 LABORATORY Comment: Complications of CKD and risk o f cardiovascular disease increase when GFR is below 60ml.min/1.73m2. A persistently re duced GFR is a specific indication of Chronic Kidney Disease. The eGFR calculation has not been validated in patients >70yrs. Calcium 8.8 8.4 - 10.5 04/15/2022 8:20 PM [facility] L JANNA mg/dL [facility] Glucose 103 (H) 70 - 99 mg/dL 04/15/2022 8:[address] [facility] Protein, Total 7.3 6.0 - 8.0 04/15/2022 8:[address] [facility] g/dL [facility] Albumin 3.8 3.5 - 5.0 04/15/2022 8:20 PM BRAD LA KE g/dL [facility] Alkaline Phosphatase 81 40 - 150 IU/L 04/15/2022 8:20 PM [facility] LABORATORY Aspartate 16 10 - 40 IU/L 04/15/2022 8:20 PM [facility] Aminotransferase [facility] Alanine Aminotransferase 21 6 - 31 IU/L 04/15/2022 8: 20 PM [facility] LABORATORY Bilirubin, Total 0.4 0.2 - 1.2 04/15/2022 8:20 PM Marcelina LEDEZMA mg/dL [facility] Specimen Anatomical Collection Method / Collection Time Recei iva Time (Source) Location / Volume Laterality Blood BLOOD SPECIMEN / Venipuncture / 04/15/2022 7:52 2021 7:59 Unknown Unknown PM CDT PM CDT Narrative [facility] LABORATORY - 12/2021 8:20 PM CDT Current [...] Organization Address City/State/ZIP Code Phon e Number [place] [phone] [address] [address] LABORATORY (ABNORMAL) HEMOGRAM/DIFFERENTIAL (04/15/2022 7:52 PM CDT) [facility] gist Method Time Signature WBC 12.1 (H) 3.2 - 04/15/2022 [facility] 11.0 8:21 PM [facility] 10*9/L LABORATORY RBC 4.91 3.77 - 04/15/2022 [facility] 5.24 8:21 PM [facility] 10*12/L LABORATORY HGB 9.7 (L) 11.2 - 04/15/2022 [facility] 15.5 g/dL 8:21 PM [facility] LAB[facility] HCT 32.8 (L) 34.3 - 04/15/2022 [facility] 46.0 % 8:21 PM [facility] MCV 66.8 (L) 81.4 - 04/15/2022 [facility] 99.0 fL 8:21 PM [facility] MCH 19.8 (L) 26.7 - 04/15/2022 [facility] 33.1 pg 8:21 PM [facility] MCHC 29.6 (L) 31.6 - 04/15/2022 [facility] 35.5 g/dL 8:21 PM [facility] RDW 21.4 (H) 11.3 - 04/15/2022 [facility] 14.6 % 8:21 PM [facility] PLT 372 130 - 375 04/15/2022 [facility] 10*9/L 8:21 PM T [facility]OSPITAL LABORATORY Neutrophils % 79.7 % 04/15/2022 [facility] 8:21 PM T [facility]OSPITAL LABORATORY Lymphocytes % 14.3 % 04/15/2022 [facility] 8:21 PM [facility] LAB[facility]ORY Monocytes % 5.7 % 04/15/2022 [facility] 8:21 PM T HOSPITAL LABORATORY Eosinophils % 0.1 % 04/15/2022 [facility] 8:21 PM T [facility]ITAL LABORATORY Basophils % 0.2 % 04/15/2022 [facility] 8:21 PM T [facility]ITAL LABORATORY Neutrophils 9.6 (H) 1.5 - 7.6 04/15/2022 [facility] Absolute 10*9/L 8:21 PM [facility] LABORATORY Lymphocytes 1.7 0.8 - 3.3 04/15/2022 [facility] Absolute 10*9/L 8:21 PM T [facility] LABORATORY Monocytes 0.7 0.2 - 0.9 04/15/2022 [facility] Absolute 10*9/L 8:21 PM T [facility]ITAL LABORATORY Eosinophils 0.0 0.0 - 0.4 04/15/2022 [facility] Absolute 10*9/L 8:21 PM T [facility]ITAL LABORATORY Basophils 0.0 0.0 - 0.1 04/15/2022 [facility] Absolute 10*9/L 8:21 PM T HOSPITAL LABORATORY Specimen Anatomical Collection Method / Collection Time Recei iva Time (Source) Location / Volume Laterality Blood BLOOD SPECIMEN / Venipuncture / 04/15/2022 7:52 2021 7:59 Unknown Unknown PM CDT PM CDT Hailey Ziegler MD EC HEMATOLOGY ORDERABLES Performing Organization Address City/State/ZIP Code Phon e Number [place] [phone] [address] [address] LABORATORY HOLD SERUM TUBE (04/15/2022 7:52 PM CDT) Specimen Anatomical Collection Method / Collection Time Recei iav Time (Source) Location / Volume Laterality Blood BLOOD SPECIMEN / Venipuncture / 04/15/2022 7:52 2021 7:59 Unknown Unknown PM CDT PM CDT Hailey Ziegler MD EC CHEMISTRY ORDERABLES Performing Organization Address [facility] Phon e Number [address] [address] LABORATORY HOLD NA CITRATE (04/15/2022 7:52 PM CDT) Specimen Anatomical Collection Method / Collection Time Recei iva Time (Source) Location / Volume Laterality Blood BLOOD SPECIMEN / Venipuncture / 04/15/2022 7:52 2021 7:59 Unknown Unknown PM CDT PM CDT Hailey Ziegler MD EC HEMATOLOGY ORDERABLES Performing Organization Address [facility] Code Phon e Number [address] [address] LABORATORY HOLD PURPLE TUBE (04/15/2022 7:52 PM CDT) Specimen Anatomical Collection Method / Collection Time Recei iva Time (Source) Location / Volume Laterality Blood BLOOD SPECIMEN / Venipuncture / 04/15/2022 7:52 2021 7:59 Unknown Unknown PM CDT PM CDT Hailey Ziegler MD EC HEMATOLOGY ORDERABLES Performing Organization Address City/[facility] Phon e Number [address] [address] LABORATORY HOLD LI HEPARIN (04/15/2022 7:52 PM CDT) Specimen Anatomical Collection Method / Collection Time Recei iva Time (Source) Location / Volume Laterality Blood BLOOD SPECIMEN / Venipuncture / 04/15/2022 7:52 2021 7:59 Unknown Unknown PM CDT PM CDT Hailey Ziegler MD EC CHEMISTRY ORDERABLES Performing Organization Address [facility] Phon e Number [address] [address] LABORATORY documented in this encounter Visit Diagnoses [...]
--- OUTSIDE RECORDS SUMMARY | 2022-07-12 21:16 | XMS_ITS | Encounter Summary ---
:1995 Author Organization [facility] Address [address], [place] [address] Care Team Providers Name Role Phone Unavailable Primary Care Provider Unavailable Reason for Visit Reason Comments Appt. Needed 2 week f/u Encounter Details Date Type Department Care Team Description 05/09/2021 Telephone [facility] 3800 Nurse, [id number] End Appt. Needed (2 week Endocrinology [address] f/u) [address] [place] [id number] Social History Tobacco Use Types Packs/Day Years [...]
--- OUTSIDE RECORDS SUMMARY | 2022-07-12 21:16 | XMS_ITS | Encounter Summary ---
:1995 Author Organization [facility] Address [address], [place] [address] Care Team Providers Name Role Phone Unavailable Primary Care Provider Unavailable Reason for Visit Reason Comments Appt. Needed every 2 wks thru 36 weeks Encounter Details Date Type Department Care Team Description 07/20/2021 Telephone [facility] 3800 Ciera Rush PA-C Appt. Needed (every 2 Endocrinology [address] wks thru 36 weeks) [address] [place] [address] [phone] Social History Tobacco Use Types Packs/Day Years Used Date Smoking Tobacco: Never Alcohol Use Standard Drinks/Week Comments Not Currently 0 (1 standard drink = 0.6 oz pure alcoho l) Financial Resource Strain Answer Date Recorded How hard is it for you to pay for the very basics like Not h moinsha at all 04/11/2021 food, housing, medical care, [...] 2 weeks thru 36 weeks per Ciera IC TANK SETTER documented in this encounter Plan of Treatment Not on filedocumented as of this encounter Visit Diagnoses Not on filedocumented in this encounter
--- OUTSIDE RECORDS SUMMARY | 2022-07-12 21:16 | XMS_ITS | Encounter Summary ---
:1995 [address] [facility] Address [address], [place] [address] Care Team Providers Name Role Phone Unavailable Primary Care Provider Unavailable Reason for Visit Reason Comments Follow-up Encounter Details Date Type Department Care Team Description 04/09/2021 Telephone [facility] 3800 Alfredo Rocha MD Follow-up Endocrinology [address] [place] [address] [place] [address] [phone] Social History Tobacco Use Types Packs/Day Years [...] what her preferred pharmacy was. She states [facility], so this was entered. She later states, Am Igoing to [place] to clam picker my medications And I questioned what she meant. Pt states she thought she was going to [place] to clam picker insulin and speak to a nurse. I [...]
--- OUTSIDE RECORDS SUMMARY | 2022-07-12 21:16 | XMS_ITS | Encounter Summary ---
:1995 Author Organization [facility] Address [address], [place] [address] Care Team Providers Name Role Phone Unavailable Primary Care Provider Unavailable Reason for Referral Consult/Transfer Care (Routine) - New Request Specialty Diagnoses / Procedures Referred By Contact Refer red To Contact Diagnoses Pre-existing type 2 diabetes mellitus during in third trimester Sagar Kuhn PA-C [address] [place], [place] [address] Referral ID Status Reason Start Date Expiration Date Visits V isits Requested Authorized [id number] New Request 08/28/2021 11/27/2022 1 1 Scheduling Instructions Your provider has recommended an appoint ment with [facility]. You may call [phone] to schedule your appoi ntment. STERED NURSE MIDWIFE Encounter Details Date Type Department Care Team Description 08/28/2021 Telemedicine [facility] [address] Minnie Melgoza, DUMPSTER OPERATOR, POTABLE WATER TREATMENT OPERATOR [address] [place], [place] [id number] Pre-existing type 2 diabetes mellitus du ring in third trimester (Primary Dx); Endocrinology Sagar Kuhn PA-C [address] [place], [place] [phone] Obesity, unspecified obesity severity, u nspecified obesity type; [address] Patient n on adherence [address] [place], [place] [id number] Social History Tobacco Use Types Packs/Day Years [...] appointments, please call our Endocrinology Nurse Line [phone]. 3. Prescription refills sent to your pharmacy. [...] please have records faxed to Endocrinology at [phone]. 6. Recommended follow up as noted below. Recommended Follow Up Endocrinology 09/13/2021 with [facility] Make appointment now Sagar Kuhn PA-C STERED NURSE MIDWIFE documented in this encounter Progress Notes Sagar [...] Visit with Endocrinology 07/18/2021 with Ciera. Patient's Creosoting Engineer Aj GP Status Gestational Age 31 weeks [...] [facility] for [facility] care. Current weight per [...] appointments, please call our Endocrinology Nurse Line [phone]. 2. Continue all other medications unchanged. 3. [...] please have records faxed to Endocrinology at [phone]. 6. Recommended follow up as noted below. [...] moderate medical decision required for this session. STERED NURSE MIDWIFE documented in this encounter Plan of Treatment [...]
--- OUTSIDE RECORDS SUMMARY | 2022-07-12 21:16 | XMS_ITS | Encounter Summary ---
:1995 Author Organization [facility] Address [address] [place] [address] Care Team Providers Name Role Phone Unavailable Primary Care Provider Unavailable Reason for Visit Reason Comments Diabetes Consult/Transfer Care (Routine) - Closed Specialty Diagnoses / Procedures Referred By Contact Refer red To Contact Diagnoses Pre-existing type 2 diabetes mellitus during in second trimester Enrico Rocha MD [address] [place], [place] [address] Referral ID Status Reason Start Date Expiration Date Visits Requ ested Visits Authorized [id number] Closed 04/09/2021 07/09/2022 1 1 Encounter Details Date Type Department Care Team Description 04/11/2021 Telemedicine [facility] Cris Gardner, Sharath e-existing type [address]N, LD, CDCES diabetes mellitus [address] [facility] . [address] [place] [address] Blvd second trimester [phone] [place] [address] Social History Tobacco Use Types [...] a video that also reviews the steps: [email or web address]/[email or web address] Dose If your fasting blood sugar remains above 94 mg/dl over the next two days ( and Friday morning), pickling machine operator and start NPH insulin Friday (04/13) evening. [...] consider obtaining Relion brand insulin available at [facility] only. Please ask the pharmacist at [facility] if it's cheaper to obtain the insulin [...] your healthcare provider or 911. Phone Numbers [facility]: [phone] (Diabetes Educators are available Mon-Fri 8:00-4:30pm) Adult Endocrinology: [phone] Emergency after hours (ask for Diabetes Doctor): [phone] Please call the [facility] Diabetes Siler ([phone]) if you have any questions or concerns [...] glucose remains elevated these next 2 days, pickling machine operator and start NPH 12 units at bed-time [...] patient: home Time spent on video in [id number] contact with patient, if applicable: 70 Education content taught can be found in the diabetes education smartform documented in this encounter Plan of Treatment Not on filedocumented as of this encounter Visit Diagnoses Diagnosis Pre-existing type 2 diabetes mellitus du ring in second trimester documented in this encounter
--- OUTSIDE RECORDS SUMMARY | 2022-07-12 21:16 | XMS_ITS | Encounter Summary ---
:1995 Author Organization [facility] Address [address] [place] [address] Care Team Providers Name Role Phone Unavailable Primary Care Provider Unavailable Reason for Visit Reason Comments Refill HUMULIN N 100 UNIT/ML inject ion [Pharmacy Med Name: HUMULIN N INSULIN (HI-[id number])] Encounter Details Date Type Department Care Team Description 05/27/2022 Refill [facility] 3800 Jacoby Dawson PA-C Refill (HUMULIN N 100 Endocrinology [address] UNIT/ML injection [address] [Pharmacy Med Name: [address] [place] [address] ([id number])]) [id number] [phone] Social History Tobacco Use Types Packs/Day Years [...] MINUTES BEFORE EVENING MEAL Authorizing Provider: JACOBY DAWSON Ordering User: MARY BRUNO Filled per RN [...] Not found [employer] Embedded Refills, Reference: [id number], 05/27/2022 5:52:40 PM CDT, Pool: ENDO PN REFILL ([id number]) documented in this encounter Plan of Treatment Not on filedocumented as of this encounter Visit Diagnoses Diagnosis Pre-existing type 2 diabetes mellitus du ring in third trimester documented in this encounter
--- OUTSIDE RECORDS SUMMARY | 2022-07-12 21:16 | XMS_ITS | Clinical Summary ---
:1995 Author Organization [facility] Address [address] [address] Care Team Providers Name Role Phone Unavailable [...] for each transition of care or referral. [facility] Allergies No known active allergies Medications Medication Sig Dispensed Refills Start Date End Date Status [employer] (BD Use as directed 1 Each 04/11/2021 Active [employer] COMPENSATION CLAIMS ADJUSTER)Indication s: Pre-existing type 2 diabetes mellitus during [...] Care Team Description 06/01/2022 Refill Endocrinology Kaylen Thompsno, PERSONAL COUNSELOR, LAW OFFICE RECEPTIONIST Re fill (BD INSULIN SYRINGE U/F [Pharmacy [...] Dates Phone Addre ss Type Group [facility] [id number] 2021-Present [phone] CLAIMS Medicaid [address] [place] [address] [address] [id number] Valery Scott Personal/Famil Self 1995 [address] (Home) [address] [facility] [address] [place] [id number]
--- OUTSIDE RECORDS SUMMARY | 2022-07-12 21:16 | XMS_ITS | Encounter Summary ---
:1995 Author Organization [employer] Address [address] [address] Phone Care Team Providers Name Role Phone Unavailable Primary Care Provider Unavailable Encounter Details Date Type Department Care Team Description 04/15/2022 Ancillary Procedure [facility] [address] [address] Social History Tobacco Use Types [...]
--- OUTSIDE RECORDS SUMMARY | 2022-07-12 21:16 | XMS_ITS | Encounter Summary ---
:1995 Author Organization [facility] Address [address] [place] [address] Care Team Providers Name Role Phone Unavailable Primary Care Provider Unavailable Reason for Visit Reason Onset Date Comments Diabetes Follow-up No Show 06/05/2021 Encounter Details Date Type Department Care Team Description 06/05/2021 Telemedicine [facility] 3800 Enrico Rocha for Endocrinology MD Stephani administrative purposes [address] [place] (Pr imary Dx) [facility] [place] [phone] Social History Tobacco Use Types Packs/Day Years [...] 12:00 AM CDT NAME: VALERY APARICIO CSN: [id number] CLINIC NOTE DATE OF SERVICE: 06/05/2021 : 1995 SUBJECTIVE: Valery is a 25-year-old woman who we are following for insulin treated gestational diabetes. She is at 19 weeks gestation. EDC September 30, 2021. We had met with her last on May 01 and previously she had been seen on April 09 and in April by her RIVET MAKER and diabetes education. She had an [...] with our APC. ENRICO ROCHA MD GSD/AQS /[id number] documented in this encounter Plan of Treatment Not on filedocumented as of this encounter Visit Diagnoses Diagnosis Encounters for administrative purposes - Primary Encounters for unspecified administrativ e purpose documented in this encounter
--- OUTSIDE RECORDS SUMMARY | 2022-07-12 21:16 | XMS_ITS | Encounter Summary ---
:1995 Author Organization [facility] Address [address], [place] [address] Care Team Providers Name Role Phone Unavailable Primary Care Provider Unavailable Reason for Visit Reason Comments Diabetes Encounter Details Date Type Department Care Team Description 05/28/2021 Telemedicine [place] Antonella Teixeira Type 2 diabe [facility] Diabet [place], [place] [address] , [place] [address] BLVD trimester (Primary [phone] [place], [place] Dx) [address] Social History Tobacco Use [...] seen by Endocrinology. Patient asked that this radio news writer send a message to schedulers with Endocrinology and ask them to call her to schedule these appointments, and did do so. This radio news writer will contact patient by phone to [...] size of mashed potatoes to one to mjk-huo-n-half cups. 8) Consider having one kind of [...] patient: home Time spent on video in bwzy-hu-mwhf contact with patient, if applicable: 69 minutes Education content taught can be found in the diabetes education smartform documented in this encounter Plan of Treatment Not on filedocumented as of this encounter Visit Diagnoses Diagnosis Type 2 diabetes mellitus in , f irst trimester - Primary documented in this encounter
--- OUTSIDE RECORDS SUMMARY | 2022-07-12 21:16 | XMS_ITS | Encounter Summary ---
:1995 Author Organization [facility] Address [address] [place] [address] Care Team Providers Name Role Phone Unavailable Primary Care Provider Unavailable Reason for Visit Reason Comments Diabetes Encounter Details Date Type Department Care Team Description 05/16/2021 Office Visit Antonella Pimentel Type 2 diabe racquel [facility] Srinivasan [place]itt RN, [place] [address] , [place] [address] BLVD trimester [phone] [place] [address] Social History Tobacco Use Types [...] plan, or simply want to speak to ict educator, call [phone] from 8:00 am - 4:30 pm, Friday [...] make a request to speak with your ict educator. If are having an urgent question related to diabetes and need assistance after hours, please call [phone]. PLEASE CALL IDC WITH YOUR BLOOD GLUCOSE READINGS TODAY!! Thanks! ELVIS Berman, [facility] Diabetes [place] documented in this encounter Progress Notes Antonella [...] each space marking on the syringe. This marketing writer had patient practice drawing up air for the multiple sample doses provided by this marketing writer for teaching purposes, which patient was eventually [...] drawing up the appropriate doses once this marketing writer wrote down the morning and evening doses [...]
--- OUTSIDE RECORDS SUMMARY | 2022-07-12 21:16 | XMS_ITS | Encounter Summary ---
:1995 Author Organization [facility] Address [address] [place] [address] Care Team Providers Name Role Phone Unavailable Primary Care Provider Unavailable Reason for Visit Reason Comments Diabetes Encounter Details Date Type Department Care Team Description 05/01/2021 Telemedicine [facility] 3800 Enrico Rcoha, Sharath e-existing type 2 diabetes mellitus during in third trimester (Primary Dx); Endocrinology MD Type 2 diabetes mellitus in , f irst trimester 3800 [facility] [address] [place] [address] [phone] (Wo rk) Social History Tobacco Use Types [...] 12:00 AM CDT NAME: VALERY APARICIO CSN: [id number] CLINIC NOTE DATE OF SERVICE: 05/01/2021 : [...] before supper with recommendation forclose followup at [facility] on April 24. Her meals are fairly [...] separate injections until then. She lives in [place], [place], so that will be closer to [facility]. MEDICATION LIST: Reviewed and updated in [place]. OBJECTIVE: Deferred, video visit. We spent almost [...] [facility] [place] [facility] [facility]. She needs to [...] today 40 minutes. ENRICO ROCHA MD GSD/AQS /[id number] cc:RAFAEL Louie documented in this encounter Plan of Treatment Not on filedocumented as of this encounter Visit Diagnoses Diagnosis Pre-existing type 2 diabetes mellitus du ring in third trimester - Primary Type 2 diabetes mellitus in , f irst trimester documented in this encounter
--- OUTSIDE RECORDS SUMMARY | 2022-07-12 21:16 | XMS_ITS | Encounter Summary ---
:1995 Author Organization [facility] Address [address] [place] [address] Care Team Providers Name Role Phone Unavailable Primary Care Provider Unavailable Reason for Visit Reason Comments Medication Questions Encounter Details Date Type Department Care Team Description 04/29/2021 Nurse Triage Careline Unknown, Medication Questions [address] Physician [place], [place] [address] [phone] [place] [address] Social History Tobacco Use Types [...] wasadvised to reschedule her visit the the [facility] to learn how to do so if she would like to begin doing this. Pt agrees with plan. She does have visit with Dr. Rocha tomorrow. Stephanie Spain RN - 04/29/2021 2:30 PM CDT Patient/care center manager request: Input needed Medication Specific Request: patient has a telephone meeting 04/30/21 at 2:00 with nurse per [employer]. Patient calling multiple times about insulin administration [...] to Flag for care team/Care team pool Intelligence Senior Sergeant received a [employer] message that patient wanted chart writer to call her back.???Edward, my name is Stephanie, a nurse at the [facility] returning a call to [facility]. The time is 2:32 PM on [...] triager answers question Protocols used: MEDICATION QUESTION [id number] Stephanie Spain RN - 04/29/2021 12:36 PM [...] insulin. She was given a prescription from [employer] for the clear insulin. Doesn't know how much or what to do. She goes to someone in [facility] for her OB care, womens health, Dr. Chanel Granger, unsure of spelling. She states she is in the ED right now in [place] getting covid testing. Reviewed with patient pertinent [...] name is stephanie, a nurse at the [facility] returning a call to [facility]. The time is 1:09 PM on [...] is the patient normally seen? Janeth Bartholomew ([facility]) Clinics Do you see a PN [...]
--- OUTSIDE RECORDS SUMMARY | 2022-07-12 21:16 | XMS_ITS | Encounter Summary ---
:1995 Author Organization [facility] Address [address] [place] [address] Care Team Providers Name Role Phone Unavailable Primary Care Provider Unavailable Reason for Visit Reason Onset Date Comments Follow-up ERRONEOUS ENTRY 09/13/2021 Encounter Details Date Type Department Care Team Description 09/13/2021 Telemedicine [facility] [address] Minnie Melgoza APRN, NATALYA 3800 [facility] [address] Encounters for Endocrinology Geoffrey Khan PA-C [address] [place] [address] administrative purpose 3800 [facility] (Primary Dx) [place] [address] Social History Tobacco Use Types [...] Khan PA-C - 09/13/2021 10:00 AM CST AND NUTRITION SUPERVISOR documented in this encounter Progress Notes Geoffrey Khan PA-C - 09/13/2021 10:00 AM CST I invited patient to join [facility] visit, but after 8 minutes of waiting patient had still not connected to visit. Tried calling patient on cell and call went to . VM left. Patient had not connected toamwell visit by 10:14 am, and was called again through [facility]. Call went to immediately. left with number to reschedule. AND NUTRITION SUPERVISOR Juli Edwards RN - 09/13/2021 10:00 AM CST Left message for chart prep. AND NUTRITION SUPERVISOR Juli Edwards RN - 09/13/2021 10:00 AM CST 2nd message left for chart prep. AND NUTRITION SUPERVISOR documented in this encounter Plan of Treatment Not on filedocumented as of this encounter Visit Diagnoses Diagnosis Encounters for administrative purpose - Primary Encounters for unspecified administrativ e purpose documented in this encounter
--- OUTSIDE RECORDS SUMMARY | 2022-07-12 21:16 | XMS_ITS | Encounter Summary ---
:1995 Author Organization [facility] Address [address], [place] [address] Care Team Providers Name Role Phone Unavailable Primary Care Provider Unavailable Reason for Visit Reason Comments APPOINTMENT REQUEST referral DM1 & Preg Encounter Details Date Type Department Care Team Description 04/02/2021 Telephone [facility] 3800 Nurse, P3800 End APPOINTMENT REQUEST Endocrinology [address] Janeth Bartholomew (referral DM1 & Preg) [address] [place] [address] Social History Tobacco Use Types Packs/Day Years [...] 2:14 PM CDT Faxed referral rec'd from [facility] for DM1 and preg, records sent to [email or web address] doc documented in this encounter Plan of Treatment Not on filedocumented as of this encounter Visit Diagnoses Not on filedocumented in this encounter
--- OUTSIDE RECORDS SUMMARY | 2022-07-12 21:16 | XMS_ITS | Encounter Summary ---
:1995 Author Organization [facility] Address [address] [place] [address] Care Team Providers Name Role Phone Unavailable Primary Care Provider Unavailable Reason for Visit Reason Comments Blood Glucose Readings Encounter Details Date Type Department Care Team Description 08/27/2021 Telephone [facility] 3800 Ciera Rush PA-C Blood Glucose Readings Endocrinology 3800 [facility] [address] [facility] [place] [id number] [phone] Social History Tobacco Use Types Packs/Day Years [...] routing to frontline to reach out again. ER Ciera Rush PA-C - 08/27/2021 12:54 PM [...] the frontline to schedule f/u visit with EGG PRODUCER/PA within 1 week, and then every 2 weeks for the remainder of her . Thank you, Ciera Rush PA-C 08/27/2021, 12:59 PM ER Alvaro Rice RN - 08/27/2021 10:12 AM [...] fasting) 248 08/27 154 (6am) 93 (1016am) ER documented in this encounter Plan of Treatment Not on filedocumented as of this encounter Visit Diagnoses Diagnosis Pre-existing type 2 diabetes mellitus du ring in third trimester documented in this encounter
--- OUTSIDE RECORDS SUMMARY | 2022-07-12 21:16 | XMS_ITS | Encounter Summary ---
:1995 Author Organization [facility] Address [address] [address] Care Team Providers Name Role Phone Unavailable Primary Care Provider Unavailable Reason for Visit Reason Comments Post Visit Follow Up Encounter Details Date Type Department Care Team Description 07/18/[address] [facility] 3800 Ciera Rush PA-C Post Visit Follow Up Endocrinology 3800 [facility] [address] [place] [id number] [phone] Social History Tobacco Use Types Packs/Day Years [...] note for now and reopen as needed. CREAM DIPPER Alvaro Rice RN - 07/24/2021 4:01 PM CST Left VM requesting pt return call for provider message below. CREAM DIPPER Estela Scruggs RN - 07/19/2021 10:32 AM CST Left VM for patient to return call. Please relay information below. CREAM DIPPER Ciera Rush PA-C - 07/18/2021 9:54 PM CST Please call patient and inquire if she was able to pick pulling machine operator her test strips at the pharmacy or not. If she has picked them up, then please ask her to report her glucose readings from her meter since our call yesterday. Thank you, Ciera Rush PA-C 07/18/2021, 9:55 PM CREAM DIPPER documented in this encounter Plan of Treatment Not on filedocumented as of this encounter Visit Diagnoses Not on filedocumented in this encounter
--- OUTSIDE RECORDS SUMMARY | 2022-07-12 21:16 | XMS_ITS | Encounter Summary ---
:1995 Author Organization [facility] Address [address], [place] [address] Care Team Providers Name Role Phone Unavailable Primary Care Provider Unavailable Reason for Referral Consult/Transfer Care (Routine) - Closed Specialty Diagnoses / Procedures Referred By Contact Refer red To Contact Diagnoses Pre-existing type 2 diabetes mellitus during in second trimester Enrico Rocha MD [address] [place], [place] [address] Referral ID Status Reason Start Date Expiration Date Visits Requ ested Visits Authorized [id number] Closed 04/09/2021 07/09/2022 1 1 Scheduling Instructions Your provider has recommended an appoint ment with [facility]. You may call [phone] to schedule yo ur appointment. We suggest you call your health insurance company about your cove rage and benefits for this appointment. Reason for Visit Reason Comments CONSULT Encounter Details Date Type Department Care Team Description 04/09/[address] [facility] [address] Enrico Rocha Pr e-existing type 2 Endocrinology diabetes mellitus [address] Janeth Bartholomew [address] second trimester [place], [place] (P rimary Dx) [phone] (Wo rk) Social History Tobacco Use Types [...] 12:00 AM CDT NAME: VALERY APARICIO CSN: [id number] CLINIC NOTE DATE OF SERVICE: 04/09/2021 : 1995 SUBJECTIVE: Valery is a 25-year-old woman who is scheduled as a video visit into my in-clinic day. She did not have a pre-visit prep. She is sent by [facility], in [place], [place]. Consultation is requested to evaluate diabetes, [...] visit. She looks well. LABS: Reviewed from [facility] via media tab from March [...] best fit since she lives down in [place]. 4.Reviewed diabetes management during , target glucose, glucose monitoring, insulin use. Reviewed physiology of causing high glucose and the risk of hyperglycemia during the . 5.She will likely need a series of visits with our diabetes education staff. Will plan for a few weeks with our nurse practitioner or physician's assistant professor nurse education. MD TIERNEY BARRON/LENIN /[id number] cc:[facility] [address] [place] [address] documented in this encounter Plan of Treatment [...]
--- OUTSIDE RECORDS SUMMARY | 2022-07-12 21:16 | XMS_ITS | Encounter Summary ---
:1995 Author Organization [facility] Address [address] [place] [address] Care Team Providers Name Role Phone Unavailable Primary Care Provider Unavailable Reason for Visit Reason Comments Refill BD INSULIN SYRINGE U/F [Phar yariel Med Name: B-D #[id number] SYR/NDL 1ML 31GX5/16 UF] Encounter Details Date Type Department Care Team Description 05/25/2022 Refill [facility] 3800 Enrico Rocha, Re fill (BD INSULIN Endocrinology MD SYRINGE U/F [Pharmacy [address] [place] [place] [address] [place] Med Name: B[address]D [id number] SYR/NDL 1ML 31GX5/16 [place], [place] UF ]) [id number] [phone] (Wo rk) Social History Tobacco Use Types [...] call back and schedule, unable to leave [facility]. Stanislav Carroll, RN - 05/31/2022 7:58 AM CDT Patient is overdue for appointment, please reach out to the patient to schedule follow up with MD Munoz and route back to fountain dispenser once complete. Renewed medication per medication refill [...] visit: [facility] [employer] Embedded Refills, Reference: [id number], 05/25/2022 9:52:24 AM CDT, Pool: ANAI CASSIDY ([id number]) documented in this encounter Plan of Treatment Not on filedocumented as of this encounter Visit Diagnoses Diagnosis Type 2 diabetes mellitus in , f irst trimester documented in this encounter
--- OUTSIDE RECORDS SUMMARY | 2022-07-12 21:16 | XMS_ITS | Encounter Summary ---
:1995 Author Organization [facility] Address [address] [place] [address] Care Team Providers Name Role Phone Unavailable Primary Care Provider Unavailable Reason for Visit Reason Comments Appt. Needed VV f/u next available Encounter Details Date Type Department Care Team Description 06/26/[address] [facility] 3800 Enrico Rocha Ap pt. Needed (VV f/u Endocrinology MD next available) [address] [place] 3800 [facility] [place] [phone] (Wo rk) Social History Tobacco Use Types [...] 2W f/u, VV with Dr. 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
--- OUTSIDE RECORDS SUMMARY | 2022-07-12 21:16 | XMS_ITS | Encounter Summary ---
:1995 Author Organization [facility] Address [address], [place] [address] Care Team Providers Name Role Phone Unavailable Primary Care Provider Unavailable Reason for Visit Reason Comments Diabetes Encounter Details Date Type Department Care Team Description 09/27/2021 Telemedicine [facility] [address] Minnie Melgoza, ESTHER, NATALYA [address] [place] [address] Pre-existing type 2 Endocrinology Ciera Rush, PAKary [address] [place] [address] diabetes mellitus 3800 [facility] [place] during pr egnancy in [facility]. third trimester [place], [place] (Primar y Dx) [address] Social History [...] CST 09/25/21 Called lvm re: chart prep ARCHITECT Remy Downey LPN - 09/27/2021 11:30 AM CST LVM 09/27/21 at 8:32am ARCHITECT Ciera Rush PA-C - 09/27/2021 11:30 AM CST Images from the original note were not included. [facility]: [address] [place] [address] Clinic: [address] [place] [address] [phone], Nurse Line: [phone] Diabetes Progress Note September 27, 2021 Subjective: Chief complaint: Valery Scott is a 26 y.o. female here for management of type 2 diabetes in . Called x 1 at 11:36am. Call rolled immediately to voicemail. LMTCB Patient does not have access to [employer]. Patient had emergent on 09/21/2021. She has been seeing Endocrinology at [facility] as recently as 09/14/2021. Closing encounter. If patient does call us back, then please confirm that she is seeing someone fromendocrinology at [facility] and has follow-up visits scheduled for management. Ceira Rush PA-C Adult Endocrinology ARCHITECT documented in this encounter Plan of Treatment Not on filedocumented as of this encounter Visit Diagnoses Diagnosis Pre-existing type 2 diabetes mellitus du ring in third trimester - Primary documented in this encounter
--- OUTSIDE RECORDS SUMMARY | 2022-07-12 21:16 | XMS_ITS | Encounter Summary ---
:1995 Author Organization [facility] Address [address] [address] Care Team Providers Name Role Phone Unavailable Primary Care Provider Unavailable Reason for Visit Reason Comments Follow-up Encounter Details Date Type Department Care Team Description 05/21/2021 Telephone [facility] 3800 Alfredo Rocha MD Follow-up Endocrinology [address] [place] [address] [place] [address] [phone] Social History Tobacco Use Types Packs/Day Years [...]
--- OUTSIDE RECORDS SUMMARY | 2022-07-12 21:16 | XMS_ITS | Encounter Summary ---
:1995 Author Organization [facility] Address [address], [place] [address] Care Team Providers Name Role Phone Unavailable Primary Care Provider Unavailable Reason for Visit Reason Comments Diabetes Follow-up Encounter Details Date Type Department Care Team Description 07/18/2021 Telemedicine [facility] 3800 Ciera Rush PA-C Pre-existing type 2 diabetes mellitus du ring in third trimester (Primary Dx); Endocrinology [address] Type 2 diabetes mellitus in , first trimester [address] [place] [id number] [phone] Social History Tobacco Use Types Packs/Day Years [...] Pt would like text message for Kishor [phone] Current Diabetes Medications Humulin N Humulin R Reported Glucose Results: pt states readings have been high- 160's-high 200's. She does not have meter with her at time of call, when asked to please call numbers in prior to appt, she states she will give readings in appt. Date Fasting 1-2 hr post Pre-lunch 1-2 hr post Pre-dinner 1-2 hr post HS ER ENGINEER HELPER Ciera Rush PA-C - 07/18/2021 2:30 PM CST Images from the original note were not included. [facility]: [address] [place] [id number] Diabetes Progress Note July 18, 2021 Subjective: Chief complaint: Valery Scott is a 25 y.o. female here for management of type 2 diabetes in . Last visitwith endocrinology was on 06/05/[address] Rocha HPI: Valery is 26 weeks with baby boy. This will be her 2nd child. She [facility] in [place], [place]. Reports good movement. I want you [...] Tylenol. Last visit: 06/05/[address] Rocha Marketing Performance Analyst: Aj Current Diabetes Medications: Humulin N 26 [...] No vomiting. 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 Partnered-boyfriend. [facility] congrete. 4 year boy at [...] know if she is NOT able to pickler helper test strips today, as it is very [...] on: Complexity Ciera Rush PA-C Adult Endocrinology ER ENGINEER HELPER documented in this encounter Plan of Treatment Not on filedocumented as of this encounter Visit Diagnoses Diagnosis Pre-existing type 2 diabetes mellitus du ring in third trimester - Primary Type 2 diabetes mellitus in , f irst trimester documented in this encounter
--- OUTSIDE RECORDS SUMMARY | 2022-07-12 21:16 | XMS_ITS | Clinical Summary ---
:1995 Author Organization [employer] Address [address] [address] Phone Care Team Providers Name Role Phone [...] URINE MICROSCOPIC EXAMINATION (04/15/2022 7:58 PM CDT) [facility] Method Time Signature Urine WBC's 3-8 0 - 8 /HPF 04/15/2022 [facility] 8:21 PM T [facility] Urine RBC's 0-3 0 - 3 /HPF 04/15/2022 [facility] 8:21 PM T [facility] Urine Squamous Moderate /HPF 04/15/2022 [facility] Epithelial 8:21 PM T [facility] Cells LABORATORY Specimen Anatomical Collection Method Collection Time Receive d Time (Source) Location / / Volume Laterality Urine FAMILY SPECIALIST Non-blood 04/15/2022 7:58 PM 04/15/20 22 8:01 MID-STREAM URINE collection / CDT PM CDT SPECIMEN OBTAINED Unknown BY CLEAN CATCH PROCEDURE / Unknown Narrative [facility] - 12/2021 8:21 PM CDT Urine Culture is not indicated. Hailey Zielger MD EC URINE ORDERABLES Performing Organization Address City/State/ZIP Code Phon e Number [address] [address] LABORATORY (ABNORMAL) URINALYSIS, REFLEX TO CULTURE (04/15/2022 7:58 PM CDT) [facility] Method Time Signature Urine Color Yellow Straw, 04/15/2022 [facility] Yellow, 8:21 PM T [facility] LABORATORY Urine Slightly Clear 04/15/2022 [facility] Appearance Cloudy (A) 8:21 PM T [facility] Urine Specific 1.015 1.003 - 04/15/2022 [facility] [place] 1.035 8:21 PM T [facility] LAB[facility]ATORY Urine pH 5.5 5.0 - 8.0 04/15/2022 [facility] 8:21 PM T [facility] LAB[facility]ORY Urine Glucose Negative Negative 04/15/2022 [facility] 8:21 PM CDT [facility]PITAL LAB[facility]ATORY Urine Ketones 15 (A) Negative 04/15/2022 [facility] 8:21 PM T [facility]ORY Urine Protein Negative Negative, 04/15/2022 [facility] Trace mg/dL 8:21 PM T [facility] LAB[facility]ORY Urine Nitrites Negative Negative 04/15/2022 [facility] 8:21 PM T [facility] Urine Trace (A) Negative 04/15/2022 [facility] Leukocyte 8:21 PM T [facility] LABORATORY Specimen Anatomical Collection Method Collection Time Receive d Time (Source) Location / / Volume Laterality Urine FAMILY SPECIALIST Non-blood 04/15/2022 7:58 PM 04/15/20 8:01 MID-STREAM URINE collection / CDT PM CDT SPECIMEN OBTAINED Unknown BY CLEAN CATCH PROCEDURE / Unknown Hailey Ziegler MD EC URINE ORDERABLES Performing Organization Address City/[facility] Phon e Number [address] [address] LABORATORY HOLD LI HEPARIN (04/15/2022 7:52 PM CDT) Specimen Anatomical Collection Method / Collection Time Recei iva Time (Source) Location / Volume Laterality Blood BLOOD SPECIMEN / Venipuncture / 04/15/2022 7:52 2021 7:59 Unknown Unknown PM CDT PM CDT Hailey Ziegler MD EC CHEMISTRY ORDERABLES Performing Organization Address City/[facility] Code Phon e Number [address] [address] LABORATORY HOLD NA CITRATE (04/15/2022 7:52 PM CDT) Specimen Anatomical Collection Method / Collection Time Recei iva Time (Source) Location / Volume Laterality Blood BLOOD SPECIMEN / Venipuncture / 04/15/2022 7:52 2021 7:59 Unknown Unknown PM CDT PM CDT Hailey Ziegler MD EC HEMATOLOGY ORDERABLES Performing Organization Address City/[facility] Phon e Number EH [address] [address] LABORATORY HOLD PURPLE TUBE (04/15/2022 7:52 PM CDT) Specimen Anatomical Collection Method / Collection Time Recei iva Time (Source) Location / Volume Laterality Blood BLOOD SPECIMEN / Venipuncture / 04/15/2022 7:52 2021 7:59 Unknown Unknown PM CDT PM CDT Hailey Ziegler MD EC HEMATOLOGY ORDERABLES Performing Organization Address [facility] Phon e Number [address] [address] LABORATORY HOLD SERUM TUBE (04/15/2022 7:52 PM CDT) Specimen Anatomical Collection Method / Collection Time Recei iva Time (Source) Location / Volume Laterality Blood BLOOD SPECIMEN / Venipuncture / 04/15/2022 7:52 2021 7:59 Unknown Unknown PM CDT PM CDT Hailey Ziegler MD EC CHEMISTRY ORDERABLES Performing Organization Address [facility] Phon e Number [address] [address] LABORATORY (ABNORMAL) COMPREHENSIVE METABOLIC PANEL (04/15/2022 7:52 PM CDT) P athologist Signature Sodium 138 134 - 143 04/15/2022 [facility] mEq/L 8:20 PM [facility] Potassium 3.9 3.4 - 5.1 04/15/2022 [facility] mEq/L 8:20 PM [facility] Chloride 107 99 - 110 04/15/2022 [facility] mEq/L 8:20 PM [facility] Carbon Dioxide 20 19 - 29 04/15/2022 [facility] mEq/L 8:20 PM [facility] Anion Gap 11.0 3.0 - 15.0 04/15/2022 [facility] mEq/L 8:20 PM [facility] Blood Urea 7 5 - 24 04/15/2022 [facility] Nitrogen mg/dL 8:20 PM [facility] Creatinine 0.52 0.40 - 04/15/2022 [facility] 1.00 mg/dL 8:20 PM [facility] Glomerular >60 >60 04/15/2022 [facility] Filtration Rate mL/min/1.7 8:20 PM [facility] 3 m*2 LABORATORY Comment: Complications of CKD and risk o f cardiovascular disease increase when GFR is below 60ml.min/1.73m2. A persistently re duced GFR is a specific indication of Chronic Kidney Disease. The eGFR calculation has not been validated in patients >70yrs. Calcium 8.8 8.4 - 10.5 04/15/2022 8:20 PM [facility] Mary JANNA mg/dL [facility] Glucose 103 (H) 70 - 99 mg/dL 04/15/2022 8:20 PM [facility] Protein, Total 7.3 6.0 - 8.0 04/15/2022 8:20 PM [facility] LEDEZMA g/dL [facility] Albumin 3.8 3.5 - 5.0 04/15/2022 8:20 PM [facility] g/dL [facility] Alkaline Phosphatase 81 40 - 150 IU/L 04/15/2022 8:20 PM [facility] Aspartate 16 10 - 40 IU/L 04/15/2022 8:20 PM [facility] Aminotransferase [facility] Alanine Aminotransferase 21 6 - 31 IU/L 04/15/2022 8: 20 PM [facility] Bilirubin, Total 0.4 0.2 - 1.2 04/15/2022 8:20 PM [place] mg/dL [facility] Specimen Anatomical Collection Method / Collection Time Recei iva Time (Source) Location / Volume Laterality Blood BLOOD SPECIMEN / Venipuncture / 04/15/2022 7:52 2021 7:59 Unknown Unknown [facility] N[facility] - 12/2021 8:20 PM [facility] Current ADA criteria for Glucose: ?Normal: 70-99 mg/dL ?Impaired Fasting Glucose: 100-125 mg/dL ?Diabetes Mellitus: at or above 126 mg/dL The diagnosis of diabetes must be confir med on a subsequent day by measuring Fasting Plasma Glucose, 2-hr PG or random plasma glucose (if symptoms are present). Hailey Ziegler MD EC CHEMISTRY ORDERABLES Performing Organization Address City/State/ZIP Code [facility] e Number [facility] [address] [place] [address] LABORATORY (ABNORMAL) HEMOGRAM/DIFFERENTIAL (04/15/2022 7:52 PM CDT) [facility] Method Time Signature WBC 12.1 (H) 3.2 - 04/15/2022 [facility] 11.0 8:21 PM CDT HOSPITAL 10*9/L LABORATORY RBC 4.91 3.77 - 04/15/2022 [facility] 5.24 8:21 PM CDT HOSPITAL 10*12/L LABORATORY HGB 9.7 (L) 11.2 - 04/15/2022 [facility] 15.5 g/dL 8:21 PM CDT HOSPITAL LABORATORY HCT 32.8 (L) 34.3 - 04/15/2022 [facility] 46.0 % 8:21 PM CDT HOSPITAL LABORATORY MCV 66.8 (L) 81.4 - 04/15/2022 [facility] 99.0 fL 8:21 PM CDT HOSPITAL LABORATORY MCH 19.8 (L) 26.7 - 04/15/2022 [facility] 33.1 pg 8:21 PM CDT HOSPITAL LABORATORY MCHC 29.6 (L) 31.6 - 04/15/2022 [facility] 35.5 g/dL 8:21 PM CDT HOSPITAL LABORATORY RDW 21.4 (H) 11.3 - 04/15/2022 [facility] 14.6 % 8:21 PM CDT HOSPITAL LABORATORY PLT 372 130 - 375 04/15/2022 [facility] 10*9/L 8:21 PM CDT [facility]OSPITAL LABORATORY Neutrophils % 79.7 % 04/15/2022 [facility] 8:21 PM CDT [facility]OSPITAL LABORATORY Lymphocytes % 14.3 % 04/15/2022 [facility] 8:21 PM CDT [facility]OSPITAL LABORATORY Monocytes % 5.7 % 04/15/2022 [facility] 8:21 PM CDT [facility]OSPITAL LABORATORY Eosinophils % 0.1 % 04/15/2022 [facility] 8:21 PM CDT [facility]OSPITAL LABORATORY Basophils % 0.2 % 04/15/2022 [facility] 8:21 PM CDT [facility]OSPITAL LABORATORY Neutrophils 9.6 (H) 1.5 - 7.6 04/15/2022 [facility] Absolute 10*9/L 8:21 PM T HOSPITAL LABORATORY Lymphocytes 1.7 0.8 - 3.3 04/15/2022 [facility] Absolute 10*9/L 8:21 PM T [facility]OSPITAL LABORATORY Monocytes 0.7 0.2 - 0.9 04/15/2022 [facility] Absolute 10*9/L 8:21 PM T [facility]OSPITAL LABORATORY Eosinophils 0.0 0.0 - 0.4 04/15/2022 [facility] Absolute 10*9/L 8:21 PM T [facility]PITAL LABORATORY Basophils 0.0 0.0 - 0.1 04/15/2022 [facility] Absolute 10*9/L 8:21 PM T [facility]PITAL LABORATORY Specimen Anatomical Collection Method / Collection Time Recei iva Time (Source) Location / Volume Laterality Blood BLOOD SPECIMEN / Venipuncture / 04/15/2022 7:52 2021 7:59 Unknown Unknown PM CDT PM CDT Hailey Ziegler MD EC HEMATOLOGY ORDERABLES Performing Organization Address City/State/ZIP Code Phon e Number [address] [address] LABORATORY MAGNESIUM (04/15/2022 7:52 PM CDT) P athologist Signature Magnesium 1.9 1.8 - 2.7 04/15/2022 [facility] mg/dL 8:20 PM T [facility]OSPITAL LABORATORY Specimen Anatomical Collection Method / Collection Time Recei iva Time (Source) Location / Volume Laterality Blood BLOOD SPECIMEN / Venipuncture / 04/15/2022 7:52 2021 7:59 Unknown Unknown PM CDT PM CDT Hailey Ziegler MD EC CHEMISTRY ORDERABLES Performing Organization Address City/[facility]/ZIP [facility] Phon e Number [address] [address] LABORATORY from Last 3 Months Insurance Payer Benefit Plan / Subscriber ID Effective Dates Phone Addre ss Type Group UCARE UCARE??PMAP [id number] 2022-Present [phone] ATTN ??CLAIMS PMAP [address] [place] [address]
--- OUTSIDE RECORDS SUMMARY | 2022-07-12 21:16 | XMS_ITS | Encounter Summary ---
:1995 Author Organization [employer] Address [address] [place] [address] Care Team Providers Name Role Phone Unavailable Primary Care Provider Unavailable Encounter Details Date Type Department Care Team Description 04/11/2021 Notes/Orders [employer] [employer] [place] [employer] Cris Gardner, Ty pe 2 diabetes Diabetes RDN, DREW, JANE mellitus in [address] [facility] [address] , [place] [address] Blvd trimester (Primary [phone] [place], [place] Dx) [id number] Social History Tobacco Use [...]
--- OUTSIDE RECORDS SUMMARY | 2022-07-12 21:16 | XMS_ITS | Encounter Summary ---
:1995 Author Organization [facility] Address [address], [place] [address] Care Team Providers Name Role Phone Unavailable Primary Care Provider Unavailable Reason for Visit Reason Comments Follow-up Encounter Details Date Type Department Care Team Description 07/16/2021 Telephone [facility] [address] Alfredo Rocha MD Follow-up Endocrinology [address] [place] [address] [place] [address] [phone] Social History Tobacco Use Types Packs/Day Years [...] sugars could be obtained for the visit. [employer] CHARGER documented in this encounter Plan of Treatment Not on filedocumented as of this encounter Visit Diagnoses Not on filedocumented in this encounter
--- OUTSIDE RECORDS SUMMARY | 2022-07-12 21:16 | XMS_ITS | Encounter Summary ---
:[address] [facility] Address [address], [place] [address] Care Team Providers Name Role Phone Unavailable Primary Care Provider Unavailable Reason for Visit Reason Comments Diabetes Encounter Details Date Type Department Care Team Description 06/01/2021 Telephone Antonella Day, Diabetes Diabet RN, [facility] [address] [address] [place] [address] Social History Tobacco Use Types [...]
--- OUTSIDE RECORDS SUMMARY | 2022-07-12 21:16 | XMS_ITS | Encounter Summary ---
:1995 Author Organization [facility] Address [address] [place] [address] Care Team Providers Name Role Phone Unavailable Primary Care Provider Unavailable Reason for Visit Reason Comments Refill BD INSULIN SYRINGE U/F [Phar yariel Med Name: B-D #[id number] SYR/NDL 1ML 31GX5/16 UF] Encounter Details Date Type Department Care Team Description 06/01/2022 Refill [facility] [address] UngKaylen diego APRN R efill (BD INSULIN Endocrinology L[facility]ER SYRINGE U/F [Pharmacy [address] Med Name: [id number] SYR/NDL 1ML 31GX5/16 [place], [place] UF ]) [phone] (Wo rk) Social History Tobacco Use Types [...] visit: None [employer] Embedded Refills, Reference: [id number], 06/03/2022 3:13:37 PM CDT, Pool: JUAN LUIS VALDERR[facility] NURSING TEAM 3 ([id number]) documented in this encounter Plan of Treatment Not on filedocumented as of this encounter Visit Diagnoses Diagnosis Type 2 diabetes mellitus in , f irst trimester documented in this encounter
--- OUTSIDE RECORDS SUMMARY | 2022-07-12 21:17 | XMS_ITS | Encounter Summary ---
:1995 Author Organization [facility] Address [facility] 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 documented as of this encounter Plan of Treatment Upcoming Encounters Date Type Specialty Care Team Description 07/26/2022 Appointment Radiology. Dion Ramirez MD [address] [facility] [address] [place], [place] [address] Liliana Wright MD [address] [facility] [address] [place], [place] [address] 07/26/2022 Office Visit Maternal and Dion Ramirez MD [address] [facility] [address] [place], [place] [address] Medicine Liliana Wright MD [address] [facility] [address] [place], [place] [address] 08/13/2022 Appointment Cardiology Dion Ramirez MD [address] [place] [address] (Wo rk) documented as of this encounter Visit Diagnoses Not on filedocumented in this encounter Care Teams Manager Integrated Relationship Specialty Start Date End Date No Ref-Primary, PCP - General 04/29/22 Physician MD Jeanette Endocrinology, 08/29/21 MD Hermelinda Diabetes, and [address] [facility] Met[facility] [address] [place] [address] Radha Reid Endocrinology 09/09/21 MD Hermelinda Provider [address] [facility] [address] [place] [address] Dalia Ervin Assigned OBGYN Provider 10/07/21 [place] [address] [place], [place] [id number] documented as of this encounter
--- OUTSIDE RECORDS SUMMARY | 2022-07-12 21:17 | XMS_ITS | Encounter Summary ---
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 documented as of this encounter Plan of Treatment Upcoming Encounters Date Type Specialty Care Team Description 07/26/2022 Appointment Radiology. Dion Ramirez MD [address] [facility] [address] [place], [place] [address] Liliana Wright MD [address] [facility] [address] [place], [place] [address] 07/26/2022 Office Visit Maternal and Dion Ramirez MD [address] [place] [address] [place], [place] [address] Medicine Liliana Wright MD [address] [facility] [address] [place], [place] [address] 08/13/2022 Appointment Cardiology Dion Ramirez MD [address] [place] [address] (Wo rk) documented as of this encounter Visit Diagnoses Not on filedocumented in this encounter Care Teams Package Crimper Relationship Specialty Start Date End Date MD Jeanette Endocrinology, 08/29/21 MD Hermelinda Diabetes, and [address] [facility] Metabolism [address] [place], [place] [phone] Radha Reid Endocrinology 09/09/21 MD Hermelinda Provider [address] [facility] [address] [place], [place] [address] Lurdes Echeverria MD Assigned OBGYN Provider 09/23/21 10/06/[address] [place] [address] [place], [place] [phone] documented as of this encounter
--- OUTSIDE RECORDS SUMMARY | 2022-07-12 21:17 | XMS_ITS | Encounter Summary ---
:1995 Author Organization [place] Address [address] [place] [address] Care Team Providers Name Role Phone Hermelinda Reid MD Unavailable [phone] Hermelinda Reid MD Unavailable [phone] Ref-Primary, Physician Primary Care Provider [phone] Remington Lang MD Unavailable [phone] Reason for Referral Diagnostic Imaging Ultrasound (Routine) - Pending Review Specialty Diagnoses / Procedures Referred By Contact Refer red To Contact Diagnoses related condition, antepartum Remington Lang Procedures [facility] Hans Archer MD [address] [place] [address] Referral ID Status Reason Start Date Expiration Date Visits V isits Requested Authorized [id number] Pending 05/13/2022 05/13/2023 1 1 Review N TIER Reason for Visit Diagnostic Imaging Ultrasound (Routine) - Pending Review Specialty Diagnoses / Procedures Referred By Contact Refer red To Contact Diagnoses related condition, antepartum Remington Lang Procedures [facility] Hans Archer MD [address] [place] [address] Referral ID Status Reason Start Date Expiration Date Visits V isits Requested Authorized [id number] Pending 05/13/2022 05/13/2023 1 1 Review Encounter Details Date Type Department Care Team Description 07/05/2022 Hospital Encounter [facility] Remington Lang MD [address] [place] [address] related Maternal Dion Ramirez MD [address] [place] [address] condition, Medicine Center antepartum [place] [address] [place] [address] Social History Tobacco Use Types Packs/Day Years Used Date Smoking Tobacco: Never Smokeless Tobacco: Never Alcohol Use Standard Drinks/Week Comments Not Currently 0 (1 standard drink = 0.6 oz pure alcoho l) Sex Assigned at Date Recorded Female 09/11/2021 7:15 AM ONION TIER COVID-19 Exposure Response Date Recorded In the last 10 days, have you been in contact No / Unsure 07/05/2022 10:09 AM ONION TIER with someone who was confirmed or suspected [...] MD [address] [place], [place] [address] Liliana Wright MD 420 [facility] [address] [place], [place] [address] 07/26/2022 Office Visit Maternal and Dion Ramirez MD [address] [place] [address] Medicine Liliana Wright MD 420 [facility] [address] [place], [place] [id number] 08/13/2022 Appointment Cardiology Dion Ramirez MD [address] [place] [address] (Wo rk) documented as of this encounter Procedures Procedure Name Priority Date/Time Associated Comments Diagnosis [facility] COMPREHENSIVE Routine 07/05/2022 10:54 relate d Results for this SINGLE AM ONION TIER condition, procedure are i n antepartum the results section. documented in this encounter Results [facility] Comprehensive Single (07/05/2022 10:54 AM ONION TIER) Anatomical Region Laterality Modality Ultrasound Specimen (Source) Anatomical Collection Method Collection Time Re ceived Time Location / / Volume Laterality 07/05/2022 10:00 AM ONION TIER Impressions 07/05/2022 11:18 AM ONION TIER IMPRESSION 1) Sonographic biometry agrees with gest [...] for aneuploidy seen. Narrative 07/05/2022 11:18 AM ONION TIER Comprehensive Pat. Name: BEATRIZ APARICIO Study Date: 07/05 10:00am Pat. NO: [id number] Referring ??MD: KADEN LANG Site: [facility] [employer]: Brandon Cespedes RDMS : 1995 Age: 26 [...] 0 lb 8 ?oz EFW by ?Hadlock ([id number]) Head / Face / Neck Biometry: Pool Hall Inspector ? 4.8 ? mm CM ?3.6 ? [...] arch view. Ductal arch view. 3-vessel view. 2-sfpxyv-ajruzku view. Abdomen ? Cord insertion. Extremities / Skeleton ?Rig ht foot. Gender: female. MATERNAL STRUCTURES Cervix ?Visualized ? Appearance: Appears Closed ? Approach - Transabdominal: Cervical length 32.0 mm Right Ovary ?Visualized Left Ovary ?Visualized RECOMMENDATION We discussed the findings on today's ult rasound with the patient. The patient is scheduled to return to [facility] in 3 weeks to reassess anatomy and growth. Your patient has been scheduled for a [facility] echocardiogram with Pediatric Cardiology. A copy [...] Pat. Name:Tamera APARICIO Date:07/05/20 10:00am Pat. NO: [id number] MD:REMINGTON ANDRADE [facility] Ber[facility] :1995Age:26 INDICATION Type 2 Diabetes Mellitus. [...] 0 lb 8 oz EFW by [employer]lock ([id number]) Head / Face / Neck Biometry: Pool Hall Inspector 4.8 mm CM 3.6 mm Nasal bone [...] view. Ductal arch view. 3- vessel view. 1-ymjgzy-oheyltk view. Abdomen Cord insertion. Extremities / Skeleton Right foot. Gender: female. MATERNAL STRUCTURES Cervix Visualized Appearance: Appears Closed Approach - Transabdominal: Cervical hanna gth 32.0 mm Right Ovary Visualized Left Ovary Visualized RECOMMENDATION We discussed the findings on today's [facility] rasound with the patient. The patient is scheduled to return to [facility] in 3 weeks to reassess anatomy and growth. Your patient has been scheduled for a [facility] echocardiogram with Pediatric Cardiology. A copy [...] markers for aneuploidy seen. Remington Lang MD [facility] ORDERABLES documented in this encounter Visit Diagnoses Diagnosis related condition, antepartum documented in this encounter Care Teams Lime Slaker Relationship Specialty Start Date End Date No Ref-Primary, PCP - General 04/29/22 Physician MD Jeanette Endocrinology, 08/29/21 MD Hermelinda Diabetes, and [address] [address] Radha Reid Endocrinology 09/09/21 MD Hermelinda Provider [address] [id number] Remington Lang Assigned OBGYN Provider 05/18/22 MD Gianni [address] [place] [address] documented as of this encounter
--- OUTSIDE RECORDS SUMMARY | 2022-07-12 21:17 | XMS_ITS | Encounter Summary ---
:1995 Author Organization [place] Address [address] [place] [address] Care Team Providers Name Role Phone Hermelinda Reid MD Unavailable [phone] Hermelinda Reid MD Unavailable [phone] Lurdes Echeverria MD Unavailable Encounter Details Date Type Department Care Team Description 09/25/2021 Travel Social History Tobacco Use Types Packs/Day Years Used Date Smoking Tobacco: Never Smokeless Tobacco: Never Alcohol Use Standard Drinks/Week Comments Not Currently 0 (1 standard drink = 0.6 oz pure alcoho l) Sex Assigned at Date Recorded Female 09/11/2021 7:15 AM CAN FEEDER COVID-19 Exposure Response Date Recorded In the last month, have you been in contact with No / Unsure 09/25/2021 1:59 PM CAN FEEDER someone who was confirmed or suspected to have Coronavirus / COVID-19? documented as of this encounter Plan of Treatment Upcoming Encounters Date Type Specialty Care Team Description 07/26/2022 Appointment Radiology. Dion Ramirez MD [address] [place], [place] [address] Liliana Wright MD 420 [facility] 395 [place], [place] [phone] 07/26/2022 Office Visit Maternal and Dion Ramirez MD [address] [place], [place] [address] Medicine Liliana Wright MD 420 [facility] [address] [place], [place] [address] 08/13/2022 Appointment Cardiology Dion Ramirez MD [address] [place] [address] (Wo rk) documented as of this encounter Visit Diagnoses Not on filedocumented in this encounter Care Teams Bellstand Attendant Relationship Specialty Start Date End Date MD Jeanette Endocrinology, 08/29/21 MD Hermelinda Diabetes, and 420 [facility] Metabolism [address] [place], [place] [id number] Radha Reid Endocrinology 09/09/21 MD Hermelinda Provider 420 [facility] [address] [place], [place] [address] Lurdes Echeverria MD Assigned OBGYN Provider 09/23/21 10/06/[address] [place], [place] [id number] documented as of this encounter
--- OUTSIDE RECORDS SUMMARY | 2022-07-12 21:17 | XMS_ITS | Encounter Summary ---
:1995 Author Organization [place] Address [facility] [place] [address] Care Team Providers Name Role Phone Hermelinda Reid MD Unavailable [phone] Hermelinda Reid MD Unavailable [phone] Dalia Ervin MD Unavailable No Ref-Primary, Physician Primary Care Provider [phone] Encounter Details Date Type Department Care Team Description 04/29/2022 Travel Social History Tobacco Use Types Packs/Day Years Used Date Smoking Tobacco: Never Smokeless Tobacco: Never Alcohol Use Standard Drinks/Week Comments Not Currently 0 (1 standard drink = 0.6 oz pure alcoho l) Sex Assigned at Date Recorded Female 09/11/2021 7:15 AM [employer] COVID-19 Exposure Response Date Recorded In the last 10 days, have you been in contact with No / Unsu re 04/29/2022 10:26 AM CDT someone who was confirmed or suspected to have Coronavirus/COVID-19? documented as of this encounter Plan of Treatment Upcoming Encounters Date Type Specialty Care Team Description 07/26/2022 Appointment Radiology. Dion Ramirez MD [address] [facility] [address] [place], [place] [address] Liliana Wright MD 420 [facility] [address] [place], [place] [address] 07/26/2022 Office Visit Maternal and Dion Ramirez MD [address] [place], [place] [address] Medicine Liliana Wright MD [address] [facility] [address] [place], [place] [address] 08/13/2022 Appointment Cardiology Dion Ramirez MD [address] [place] [address] (Wo rk) documented as of this encounter Visit Diagnoses Not on filedocumented in this encounter Care Teams Fiber Machine Tender Relationship Specialty Start Date End Date No Ref-Primary, PCP - General 04/29/22 Physician MD Jeanette Endocrinology, 08/29/21 MD Hermelinda Diabetes, and 420 [facility] Metabolism [address] [place] [address] Radha Reid Endocrinology 09/09/21 MD Hermelinda Provider 420 [facility] [address] [place] [address] Dalia Ervin Assigned OBGYN Provider 10/07/21 [place] [address] [place], [place] [phone] documented as of this encounter
--- OUTSIDE RECORDS SUMMARY | 2022-07-12 21:17 | XMS_ITS | Encounter Summary ---
:1995 Author Organization [place] Address [address] [place] [address] Care Team Providers Name Role Phone Hermelinda Reid MD Unavailable [phone] Hermelinda Reid MD Unavailable [phone] Ref-Primary, Physician Primary Care Provider [phone] Lore Son MD Unavailable [phone] Encounter Details Date Type Department Care Team Description 07/05/2022 Travel Social History Tobacco Use Types Packs/Day Years Used Date Smoking Tobacco: Never Smokeless Tobacco: Never Alcohol Use Standard Drinks/Week Comments Not Currently 0 (1 standard drink = 0.6 oz pure alcoho l) Sex Assigned at Date Recorded Female 09/11/2021 7:15 AM THORACIC 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 documented as of this encounter Plan of Treatment Upcoming Encounters Date Type Specialty Care Team Description 07/26/2022 Appointment Radiology. Dion Ramirez MD [address] [facility] [address] [place], [place] [address] Liliana Wright MD 420 [facility] 395 [place], [place] [address] 07/26/2022 Office Visit Maternal and Dion Ramriez MD [address] [place], [place] [address] Medicine Liliana Wright MD [address] [facility] [address] [place], [place] [address] 08/13/2022 Appointment Cardiology Dion Ramirez MD [address] [place] [address] (Wo rk) documented as of this encounter Visit Diagnoses Not on filedocumented in this encounter Care Teams Fruit Trimmer Relationship Specialty Start Date End Date No Ref-Primary, PCP - General 04/29/22 Physician MD Jeanette Endocrinology, 08/29/21 MD Hermelinda Diabetes, and 420 [facility] Metabolism [address] [place] [address] Radha Reid Endocrinology 09/09/21 MD Hermelinda Provider 420 [facility] [address] [place] [address] Lore Son Assigned OBGYN Provider 05/18/22 MD Gianni [address] [place] [address] documented as of this encounter
--- OUTSIDE RECORDS SUMMARY | 2022-07-12 21:17 | XMS_ITS | Encounter Summary ---
:1995 Author Organization Central Address [address] [place] [address] Care Team Providers Name Role Phone Hermelinda Reid MD Unavailable [phone] Hermelinda Reid MD Unavailable [phone] Lurdes Echeverria MD Unavailable Reason for Visit Reason Comments Complications Encounter Details Date Type Department Care Team Description 09/25/2021 Emergency [facility] Ashly Pitts MD Dizziness; [facility] Emergency Dep t [facility] Palpitations; [address] [place] Anemia, unspecified type [place], [place] [address] [id number] [place] [address] [place] [address] (Wo rk) Social History Tobacco Use Types Packs/Day Years Used Date Smoking Tobacco: Never Smokeless Tobacco: Never Alcohol Use Standard Drinks/Week Comments Not Currently 0 (1 standard drink = 0.6 oz pure alcoho l) Sex Assigned at Date Recorded Female 09/11/2021 7:15 AM FOOD AND BEVERAGE COORDINATOR COVID-19 Exposure Response Date Recorded In the last month, have you been in contact with No / Unsure 09/25/2021 1:59 PM FOOD AND BEVERAGE COORDINATOR someone who was confirmed or suspected to have Coronavirus / COVID-19? documented as of this encounter Last Filed Vital Signs Vital Sign Reading Time Taken Comments Blood Pressure 121/75 09/25/2021 4:00 PM FOOD AND BEVERAGE COORDINATOR Pulse 116 09/25/2021 4:00 PM FOOD AND BEVERAGE COORDINATOR Temperature 36.7 ??C (98 ??F) 09/25/2021 2:08 PM FOOD AND BEVERAGE COORDINATOR Respiratory Rate 27 09/25/2021 4:00 PM FOOD AND BEVERAGE COORDINATOR Oxygen Saturation 100% 09/25/2021 4:00 PM FOOD AND BEVERAGE COORDINATOR Inhaled Oxygen Concentration - - Weight - - Height - - Body Mass Index - - documented in this encounter Discharge Instructions Discharge InstructionsAshly Pitts MD - 09/25/2021 6:31 PM CST Your [facility] should be reaching out to you [...] if there is anything that worries you. AND BEVERAGE COORDINATOR documented in this encounter Medications at Time [...] dizzy, unwell, and felt her heart pounding. AND BEVERAGE COORDINATOR Ashly Pitts MD - 09/25/2021 1:58 PM [...] to prior, dated 09/21/21. Rate 114 bpm. IL interval 130 ms. QRS duration 74 ms. [...] Bilirubin Urine Negative Ketones Urine Negative Specific [place] Urine 1.033 Blood Urine Large (*) pH [...] statements to me. Ashly Pitts MD 09/25/21 5147 AND BEVERAGE COORDINATOR documented in this encounter Miscellaneous Notes Result Encounter Note - Chapin Styles RN - 09/25/2021 6:39 PM CST Final urine culture report is negative. Adult Negative Urine culture parameters per protocol: Any # Urogenital single or mixed organism, <10,000 col/ml single organism (cath/midstream), and > 3 organisms (No susceptibilities performed). [facility] Emergency Dept discharge antibiotic prescribed (If applicable): None Treatment recommendations per [facility] ED Lab Result Urine Culture protocol. AND BEVERAGE COORDINATOR documented in this encounter Plan of Treatment Upcoming Encounters Date Type Specialty Care Team Description 07/26/2022 Appointment Radiology. Dion Ramirez MD [address] [place], [place] [id number] Liliana Wright MD [address] [id number] 07/26/2022 Office Visit Maternal and Dion Ramirez MD [address] [place], [place] [address] Medicine Liliana Wright MD [address] [id number] 08/13/2022 Appointment Cardiology Dion Ramirez MD [address] [place] [address] (Wo rk) documented as of this encounter Procedures Procedure Name Priority Date/Time Associated Comments Diagnosis CT CHEST PULMONARY STAT 09/25/2021 5:39 PM Res ults for this EMBOLISM W CONTRAST FOOD AND BEVERAGE COORDINATOR procedur e are in the results section. COVID-19 VIRUS STAT 09/25/2021 3:43 PM Results for this (CORONAVIRUS) BY PCR FOOD AND BEVERAGE COORDINATOR procedu re are in the results section. ROUTINE UA WITH STAT 09/25/2021 3:04 PM Result s for this MICROSCOPIC REFLEX TO FOOD AND BEVERAGE COORDINATOR proced ure are in CULTURE the results section. URINE CULTURE STAT 09/25/2021 3:04 PM Results for this FOOD AND BEVERAGE COORDINATOR procedure are i n the results section. EXTRA HEPARINIZED STAT 09/25/2021 2:42 PM Resu lts for this SYRINGE FOOD AND BEVERAGE COORDINATOR procedure are i n the results section. EXTRA TUBE STAT 09/25/2021 2:42 PM Results f or this FOOD AND BEVERAGE COORDINATOR procedure are i n the results section. EXTRA RED TOP TUBE STAT 09/25/2021 2:42 PM Res ults for this FOOD AND BEVERAGE COORDINATOR procedure are i n the results section. EXTRA BLUE TOP TUBE STAT 09/25/2021 2:42 PM Re sults for this FOOD AND BEVERAGE COORDINATOR procedure are i n the results section. D DIMER QUANTITATIVE STAT 09/25/2021 2:42 PM R esults for this FOOD AND BEVERAGE COORDINATOR procedure are i n the results section. CBC WITH PLATELETS AND STAT 09/25/2021 2:41 PM Results for this DIFFERENTIAL FOOD AND BEVERAGE COORDINATOR procedure are i n the results section. CBC WITH PLATELETS & STAT 09/25/2021 2:41 PM R esults for this DIFFERENTIAL FOOD AND BEVERAGE COORDINATOR procedure are i n the results section. TROPONIN I STAT 09/25/2021 2:41 PM Results f or this FOOD AND BEVERAGE COORDINATOR procedure are i n the results section. COMPREHENSIVE STAT 09/25/2021 2:41 PM Results for this METABOLIC PANEL FOOD AND BEVERAGE COORDINATOR procedure ar e in the results section. EKG 12-LEAD, TRACING STAT 09/25/2021 2:12 PM R esults for this ONLY FOOD AND BEVERAGE COORDINATOR procedure are i n the results section. documented in this encounter Results CT Chest Pulmonary Embolism w Contrast (09/25/2021 5:39 PM FOOD AND BEVERAGE COORDINATOR) Anatomical Region Laterality Modality Chest, SUBRAD CT BODY, UMP CT CHEST Comp uted Tomography Specimen (Source) Anatomical Collection Method Collection Time Re ceived Time Location / / Volume Laterality 09/25/2021 5:26 PM FOOD AND BEVERAGE COORDINATOR Impressions 09/25/2021 5:51 PM FOOD AND BEVERAGE COORDINATOR IMPRESSION: No acute process demonstrated. Narrative 09/25/2021 5:51 PM FOOD AND BEVERAGE COORDINATOR EXAM: CT CHEST PULMONARY EMBOLISM W CONTRAST LOCATION: [facility] DATE/TIME: 09/25/2021 5:26 PM INDICATION: Chest pain. [...] frankly destructive bony lesions. Procedure Note Laz Puryd MD - 09/25/2021Fo rmatting of this note might be different from the original. EXAM: CT CHEST PULMONARY EMBOLISM W CONT RAST LOCATION: [facility] DATE/TIME: 09/25/2021 5:26 PM INDICATION: Chest pain. [...] (Coronavirus) by PCR Nasopharyngeal (09/25/2021 3:43 PM FOOD AND BEVERAGE COORDINATOR) Analysis Performed At Patho logist Time Signature SARS CoV2 PCR Negative Negative 09/25/2021 LABORATORY 4:14 PM FOOD AND BEVERAGE COORDINATOR Comment: NEGATIVE: SARS-CoV-2 (COVID-19) RNA not detected, presumed negative. Specimen Anatomical Location / Collection Method Collection Michael e Received Time (Source) Laterality / Volume Swab NASOPHARYNGEAL Non-blood 09/25/2021 3:43 09/25/2021 3:49 STRUCTURE / Unknown Collection / PM FOOD AND BEVERAGE COORDINATOR PM FOOD AND BEVERAGE COORDINATOR Unknown Narrative LABORATORY - 09/25/2021 4:14 PM FOOD AND BEVERAGE COORDINATOR Testing was performed using the amanuel?? SARS-CoV-2 & Influenza A/B Assay on the amanuel?? Delfina?? System. ??This test shoul d be ordered for the detection of SARS-COV-2 in individuals who meet SARS-CoV-2 clini trevor and/or epidemiological criteria. Test performance is unknown [...] exposure or clinical presentation sugges ts COVID-19. ??[facility] are certified under the Clinical Laborat ory Improvement Amendments of 1988 (CLIA-88) as qualified to perform moderate and/or high complexity laboratory testing. Ashly Pitts MD LAB - MICRO GENERAL ORDERABL ES Performing Organization Address City/State/[place] [address] Care Lab [address] [facility] Lab (1st floor, no room number) Urine Culture (09/25/2021 3:04 PM FOOD AND BEVERAGE COORDINATOR) Patholo gist Method Time Signature Culture 10,000-50,000 LESLIE 09/26/2021 UU IDD CFU/mL Mixture 10:33 PM FOOD AND BEVERAGE COORDINATOR LABORATORY of urogenital saurav Specimen Anatomical Collection Method Collection Time Receive d Time (Source) Location / / Volume Laterality Urine MID-STREAM URINE Non-blood 09/25/2021 3:04 PM 09/25 3:28 SPECIMEN / Unknown Collection / FOOD AND BEVERAGE COORDINATOR PM FOOD AND BEVERAGE COORDINATOR Unknown Ashly Pitts MD LAB - MICRO GENERAL ORDERABL ES Performing Organization Address City/State/ZIP Code Phon e Number [facility] IDD LABORATORY [facility] [place] [address] Diag. Lab [address] [facility] UU IDD LABORATORY [facility] Infectious [place], [place] [phone] Diseases Diagnostic [id number], [facility] Lab (IDDL) [address] [facility], [address] (ABNORMAL) UA with Microscopic reflex to Culture (09/25/2021 3:04 PM FOOD AND BEVERAGE COORDINATOR) [facility] Method Time Signature Color Urine Yellow Colorless, 09/25/2021 LABORATORY Straw, 3:28 PM FOOD AND BEVERAGE COORDINATOR Light Yellow, Yellow Appearance Urine Slightly Clear 09/25/2021 LABORATOR Y Cloudy (A) 3:28 PM FOOD AND BEVERAGE COORDINATOR Glucose Urine Negative Negative 09/25/2021 LABORATORY mg/dL 3:28 PM FOOD AND BEVERAGE COORDINATOR Bilirubin Urine Negative Negative 09/25/2021 LABORATORY 3:28 PM FOOD AND BEVERAGE COORDINATOR Ketones Urine Negative Negative 09/25/2021 LABORATORY mg/dL 3:28 PM FOOD AND BEVERAGE COORDINATOR Specific [place] 1.033 1.003 - 09/25/2021 LABORATOR Y Urine 1.035 3:28 PM FOOD AND BEVERAGE COORDINATOR Blood Urine Large (A) Negative 09/25/2021 LABORATORY 3:28 PM FOOD AND BEVERAGE COORDINATOR pH Urine 6.0 5.0 - 7.0 09/25/2021 LABORATORY 3:28 PM FOOD AND BEVERAGE COORDINATOR Protein Albumin 30 (A) Negative 09/25/2021 LABORATORY Urine mg/dL 3:28 PM FOOD AND BEVERAGE COORDINATOR Urobilinogen Normal Normal, 2.0 09/25/2021 LABORATORY Urine mg/dL 3:28 PM FOOD AND BEVERAGE COORDINATOR Nitrite Urine Negative Negative 09/25/2021 LABORATORY 3:28 PM FOOD AND BEVERAGE COORDINATOR Leukocyte Trace (A) Negative 09/25/2021 LABORATORY Esterase Urine 3:28 PM FOOD AND BEVERAGE COORDINATOR Bacteria Urine Few (A) None Seen 09/25/2021 LABORATORY /HPF 3:28 PM FOOD AND BEVERAGE COORDINATOR Mucus Urine Present (A) None Seen 09/25/2021 RH LABORATORY /LPF 3:28 PM FOOD AND BEVERAGE COORDINATOR RBC Urine >182 (H) <=2 /HPF 09/25/2021 RH LABORATORY 3:28 PM FOOD AND BEVERAGE COORDINATOR WBC Urine 16 (H) <=5 /HPF 09/25/2021 RH LABORATORY 3:28 PM FOOD AND BEVERAGE COORDINATOR Squamous 4 (H) <=1 /HPF 09/25/2021 RH LABORATORY Epithelials 3:28 PM FOOD AND BEVERAGE COORDINATOR Urine Specimen Anatomical Collection Method Collection Time Receive d Time (Source) Location / / Volume Laterality Urine MID-STREAM URINE Non-blood 09/25/2021 3:04 PM 09/25 3:11 SPECIMEN / Unknown Collection / FOOD AND BEVERAGE COORDINATOR PM FOOD AND BEVERAGE COORDINATOR Unknown Narrative LABORATORY - 09/25/2021 3:28 PM FOOD AND BEVERAGE COORDINATOR Urine Culture ordered based on laborator y criteria Ashly Pitts MD LAB - URINE ORDERABLES Performing Organization Address City/[facility]/ZIP Code [place] [address] Care Lab [address] Lab (1st floor, no room number) (ABNORMAL) D dimer quantitative (09/25/2021 2:42 PM FOOD AND BEVERAGE COORDINATOR) [facility] gist Method Time Signature D-Dimer 0.70 (H) 0.00 - 09/25/2021 LABORATORY Quantitative 0.50 3:16 PM FOOD AND BEVERAGE COORDINATOR ug/mL FEU Specimen Anatomical Collection Method / Collection Time Recei iva Time (Source) Location / Volume Laterality Blood STRUCTURE OF RIGHT Venipuncture / 09/25/2021 2:42 02/12/2021 2:46 UPPER LIMB / Unknown PM FOOD AND BEVERAGE COORDINATOR PM FOOD AND BEVERAGE COORDINATOR Unknown Narrative LABORATORY - 09/25/2021 3:16 PM FOOD AND BEVERAGE COORDINATOR This D-dimer assay is intended for use i n conjunction with a clinical pretest probability assessment model to exclude pulmonary embolism (PE) and deep venous thrombosis (DVT) in outpatients suspecte d of PE or DVT. The cut-off value is 0.50 ug/mL FEU. Ashly Pitts MD LAB - BLOOD ORDERABLES Performing Organization Address City/[facility]/ZIP Code [place] [address] Care Lab [address] Lab (1st floor, no room number) Extra Heparinized Syringe (09/25/2021 2:42 PM FOOD AND BEVERAGE COORDINATOR) athologist Signature Hold Specimen [facility] 09/25/2021 RH LABORATORY 4:03 PM FOOD AND BEVERAGE COORDINATOR Specimen Anatomical Collection Method / Collection Time Recei iva Time (Source) Location / Volume Laterality Blood, venous STRUCTURE OF RIGHT Venipuncture / 09/25/2021 2:42 2:47 UPPER LIMB / Unknown PM FOOD AND BEVERAGE COORDINATOR PM FOOD AND BEVERAGE COORDINATOR Unknown Ashly Pitts MD LAB - BLOOD ORDERABLES Performing Organization Address City/State/[place] [address] Care Lab [address] Lab (1st floor, no room number) Extra Red Top Tube (09/25/2021 2:42 PM FOOD AND BEVERAGE COORDINATOR) athologist Signature Hold Specimen [facility] 09/25/2021 RH LABORATORY 4:03 PM FOOD AND BEVERAGE COORDINATOR Specimen Anatomical Collection Method / Collection Time Recei iva Time (Source) Location / Volume Laterality Blood STRUCTURE OF RIGHT Venipuncture / 09/25/2021 2:42 02/12/2021 2:46 UPPER LIMB / Unknown PM FOOD AND BEVERAGE COORDINATOR PM FOOD AND BEVERAGE COORDINATOR Unknown Ashly Pitts MD LAB - BLOOD ORDERABLES Performing Organization Address City/[facility]/[place] [address] Care Lab [address] Lab (1st floor, no room number) Extra Blue Top Tube (09/25/2021 2:42 PM FOOD AND BEVERAGE COORDINATOR) athologist Signature Hold Specimen [facility] 09/25/2021 RH LABORATORY 4:03 PM FOOD AND BEVERAGE COORDINATOR Specimen Anatomical Collection Method / Collection Time Recei iva Time (Source) Location / Volume Laterality Blood STRUCTURE OF RIGHT Venipuncture / 09/25/2021 2:42 02/12/2021 2:46 UPPER LIMB / Unknown PM FOOD AND BEVERAGE COORDINATOR PM FOOD AND BEVERAGE COORDINATOR Unknown Ashly Pitts MD LAB - BLOOD ORDERABLES Performing Organization Address City/[facility]/[place] [address] Care Lab [address] Lab (1st floor, no room number) (ABNORMAL) CBC with platelets and differential (09/25/2021 2:41 PM FOOD AND BEVERAGE COORDINATOR) [facility] Method Time Signature WBC Count 12.2 (H) 4.0 - 09/25/2021 RH LABORATORY 11.0 2:49 PM FOOD AND BEVERAGE COORDINATOR 10e3/uL RBC Count 3.19 (L) 3.80 - 09/25/2021 RH LABORATORY 5.20 2:49 PM FOOD AND BEVERAGE COORDINATOR 10e6/uL Hemoglobin 7.3 (L) 11.7 - 09/25/2021 RH LABORATORY 15.7 g/dL 2:49 PM FOOD AND BEVERAGE COORDINATOR Hematocrit 24.7 (L) 35.0 - 09/25/2021 RH LABORATORY 47.0 % 2:49 PM FOOD AND BEVERAGE COORDINATOR MCV 77 (L) 78 - 100 09/25/2021 RH LABORATORY fL 2:49 PM FOOD AND BEVERAGE COORDINATOR MCH 22.9 (L) 26.5 - 09/25/2021 RH LABORATORY 33.0 pg 2:49 PM FOOD AND BEVERAGE COORDINATOR MCHC 29.6 (L) 31.5 - 09/25/2021 RH LABORATORY 36.5 g/dL 2:49 PM FOOD AND BEVERAGE COORDINATOR RDW 15.7 (H) 10.0 - 09/25/2021 RH LABORATORY 15.0 % 2:49 PM FOOD AND BEVERAGE COORDINATOR Platelet Count 340 150 - 450 09/25/2021 RH LABORATORY 10e3/uL 2:49 PM FOOD AND BEVERAGE COORDINATOR % Neutrophils 70 % 09/25/2021 RH LABORATORY 2:49 PM FOOD AND BEVERAGE COORDINATOR % Lymphocytes 22 % 09/25/2021 RH LABORATORY 2:49 PM FOOD AND BEVERAGE COORDINATOR % Monocytes 7 % 09/25/2021 RH LABORATORY 2:49 PM FOOD AND BEVERAGE COORDINATOR % Eosinophils 0 % 09/25/2021 RH LABORATORY 2:49 PM FOOD AND BEVERAGE COORDINATOR % Basophils 0 % 09/25/2021 RH LABORATORY 2:49 PM FOOD AND BEVERAGE COORDINATOR % Immature 1 % 09/25/2021 RH LABORATORY Granulocytes 2:49 PM FOOD AND BEVERAGE COORDINATOR NRBCs per 100 0 <1 /100 09/25/2021 RH LABORATORY WBC 2:49 PM FOOD AND BEVERAGE COORDINATOR Absolute 8.4 (H) 1.6 - 8.3 09/25/2021 RH LABORATORY Neutrophils 10e3/uL 2:49 PM FOOD AND BEVERAGE COORDINATOR Absolute 2.7 0.8 - 5.3 09/25/2021 RH LABORATORY Lymphocytes 10e3/uL 2:49 PM FOOD AND BEVERAGE COORDINATOR Absolute 0.8 0.0 - 1.3 09/25/2021 RH LABORATORY Monocytes 10e3/uL 2:49 PM FOOD AND BEVERAGE COORDINATOR Absolute 0.0 0.0 - 0.7 09/25/2021 RH LABORATORY Eosinophils 10e3/uL 2:49 PM FOOD AND BEVERAGE COORDINATOR Absolute 0.0 0.0 - 0.2 09/25/2021 RH LABORATORY Basophils 10e3/uL 2:49 PM FOOD AND BEVERAGE COORDINATOR Absolute 0.2 <=0.4 09/25/2021 RH LABORATORY Immature 10e3/uL 2:49 PM FOOD AND BEVERAGE COORDINATOR Granulocytes Absolute NRBCs 0.0 10e3/uL 09/25/2021 RH LABORATORY 2:49 PM FOOD AND BEVERAGE COORDINATOR Specimen Anatomical Collection Method / Collection Time Recei iva Time (Source) Location / Volume Laterality Blood STRUCTURE OF RIGHT Venipuncture / 09/25/2021 2:41 09/11 2:46 UPPER LIMB / Unknown PM FOOD AND BEVERAGE COORDINATOR PM FOOD AND BEVERAGE COORDINATOR Unknown Victor Manuel Caruso PA-C LAB - BLOOD ORDERABLES Performing Organization Address City/[facility]/ZIP Code [place] [phone] Care Lab [address] Lab (1st floor, no room number) Troponin I (09/25/2021 2:41 PM FOOD AND BEVERAGE COORDINATOR) P athologist Signature Troponin I High 13 <54 ng/L 09/25/2021 LABORATORY Sensitivity 3:12 PM FOOD AND BEVERAGE COORDINATOR Comment: This Troponin-I result was obta ined using a Siemens Dimension Donaldson High Sensitivity Troponin-I assay (TNIH). Eff ective 07/03/21, nine labs/sites in the [facility] switched from a Siemens Donaldson Contemporary Troponin I assay (CTNI) to a Siemens Donaldson High-Sensitivity Troponi n I assay (TNIH). Specimen Anatomical Collection Method / Collection Time Recei iva Time (Source) Location / Volume Laterality Blood STRUCTURE OF RIGHT Venipuncture / 09/25/2021 2:41 09/11 2:46 UPPER LIMB / Unknown PM FOOD AND BEVERAGE COORDINATOR PM FOOD AND BEVERAGE COORDINATOR Unknown Victor Manuel Caruso PA-C LAB - BLOOD ORDERABLES Performing Organization Address City/[facility]/ZIP Code [place] [address] Care Lab [address] Lab (1st floor, no room number) (ABNORMAL) Comprehensive metabolic panel (09/25/2021 2:41 PM FOOD AND BEVERAGE COORDINATOR) [facility] Method Time Signature Sodium 136 133 - 144 09/25/2021 LABORATORY mmol/L 3:11 PM FOOD AND BEVERAGE COORDINATOR Potassium 3.9 3.4 - 5.3 09/25/2021 [facility] LABORATORY mmol/L 3:11 PM FOOD AND BEVERAGE COORDINATOR Chloride 105 94 - 109 09/25/2021 LABORATORY mmol/L 3:11 PM FOOD AND BEVERAGE COORDINATOR Carbon Dioxide 24 20 - 32 09/25/2021 LABORATORY (CO2) mmol/L 3:11 PM FOOD AND BEVERAGE COORDINATOR Anion Gap 7 3 - 14 09/25/2021 LABORATORY mmol/L 3:11 PM FOOD AND BEVERAGE COORDINATOR Urea Nitrogen 12 7 - 30 09/25/2021 LABORATORY mg/dL 3:11 PM FOOD AND BEVERAGE COORDINATOR Creatinine 0.29 (L) 0.52 - 09/25/2021 LABORATORY 1.04 3:11 PM FOOD AND BEVERAGE COORDINATOR mg/dL Calcium 8.5 8.5 - 09/25/2021 LABORATORY 10.1 3:11 PM FOOD AND BEVERAGE COORDINATOR mg/dL Glucose 157 (H) 70 - 99 09/25/2021 LABORATORY mg/dL 3:11 PM FOOD AND BEVERAGE COORDINATOR Alkaline 94 40 - 150 09/25/2021 LABORATORY Phosphatase U/L 3:11 PM FOOD AND BEVERAGE COORDINATOR AST 116 (H) 0 - 45 09/25/2021 LABORATORY U/L 3:11 PM FOOD AND BEVERAGE COORDINATOR ALT 64 (H) 0 - 50 09/25/2021 LABORATORY U/L 3:11 PM FOOD AND BEVERAGE COORDINATOR Protein Total 6.6 (L) 6.8 - 8.8 09/25/2021 LABORATORY g/dL 3:11 PM FOOD AND BEVERAGE COORDINATOR Albumin 2.4 (L) 3.4 - 5.0 09/25/2021 LABORATORY g/dL 3:11 PM FOOD AND BEVERAGE COORDINATOR Bilirubin Total 0.3 0.2 - 1.3 09/25/2021 LABORATORY mg/dL 3:11 PM FOOD AND BEVERAGE COORDINATOR GFR Estimate >90 >60 09/25/2021 LABORATORY mL/min/1. 3:11 PM FOOD AND BEVERAGE COORDINATOR 73m2 Comment: Effective July 31, 2021 eGF Rcr in adults is calculated using the 2020 CKD-EPI creatinine equation which includ es age and gender (Angelika et al., NEJM, DOI: 10.1056/EMIVxh9243581) Specimen Anatomical Collection Method / Collection Time Recei iva Time (Source) Location / Volume Laterality Blood STRUCTURE OF RIGHT Venipuncture / 09/25/2021 2:41 09/11 2:46 UPPER LIMB / Unknown PM FOOD AND BEVERAGE COORDINATOR PM FOOD AND BEVERAGE COORDINATOR Unknown Victor Manuel Caruso PA-C LAB - BLOOD ORDERABLES Performing Organization Address City/State/ZIP Code [place] [address] Care Lab [address] Lab (1st floor, no room number) EKG 12-lead, tracing only (09/25/2021 2:12 PM FOOD AND BEVERAGE COORDINATOR) Component Value Ref Range Test Analysis Performed Pathologis t Method Time At Signature Systolic Blood mmHg RADIOLOGY Pressure RESULTS Diastolic Blood mmHg RADIOLOGY Pressure RESULTS Ventricular Rate 114 BPM RADIOLOGY RESULTS Atrial Rate 114 BPM RADIOLOGY RESULTS IL Interval 130 ms RADIOLOGY RESULTS QRS Duration 74 ms RADIOLOGY RESULTS QT 326 ms RADIOLOGY RESULTS QTc 449 ms RADIOLOGY RESULTS P [place] 51 degrees RADIOLOGY RESULTS R AXIS 30 degrees RADIOLOGY RESULTS T [place] 31 degrees RADIOLOGY RESULTS Interpretation Sinus tachycardia RADIOLO GY ECG Possible Left atrial enlargement RESULTS Cannot rule out Anterior infarct , age undetermined Abnormal ECG When compared with ECG of 21-SEP-2021 13:45, (unconfirmed) No significant change was found Confirmed by - EMERGENCY MAE Hewitt PHYSICIAN ([id number]), web content editor DIANA BETTS ([id number]) on 09/26/2021 7:11:12 AM Specimen Anatomical Collection Method Collection Time Receive d Time (Source) Location / / Volume Laterality 09/25/2021 2:12 PM 7:11 FOOD AND BEVERAGE COORDINATOR AM FOOD AND BEVERAGE COORDINATOR Victor Manuel Caruso PA-C ECG ORDERABLES Performing [...] 1,000 mLs 2000 mL/hr BOLUS Clinician PM FOOD AND BEVERAGE COORDINATOR Intravenous, 1,000 mL, ONCE, at 2,000 mL/hr, Administer over 30 Minutes, On Fri09/25/21 at 1505, For 1 dose New Bag 09/25/2021 3:08 PM FOOD AND BEVERAGE COORDINATOR 1,000 mLs 2000 mL/hr iopamidol (ISOVUE-370) solution 500 mL Given 09/25/2021 5:31 PM FOOD AND BEVERAGE COORDINATOR 68 mLs 500 mL, Intravenous, ONCE, On 09/25/21 at 1730, For 1 dose sodium chloride 0.9 % bag 500mL for CT scan Given 09/25/2021 5:32 PM FOOD AND BEVERAGE COORDINATOR 83 mLs flush use Intravenous, 100 mL, ONCE, On 09/25/21 at 1730, For 1 dose, This entry is for use by Radiology to intermittently used as a flush in patients receiving a CT scan. documented in this encounter Active and Recently Administered Medications Times are shown in FOOD AND BEVERAGE COORDINATOR. Scheduled Medication Order 09/23/2021 09/24/2021 09/25/2021 0.9% [...] (COMPLETED ) 173 (Given - Provider: Jimy Araujo) Intravenous, 100 mL, ONCE, On Tue 2 at 1730, For 1 dose, This entry is for use by Radiology to intermittently used as a flush in patients receiving a CT scan. documented in this encounter Care Teams Utility Locator Relationship Specialty Start Date End Date MD Jeanette Endocrinology, 08/29/21 MD Hermelinda Diabetes, and [address] [place] [address] [place] [id number] Radha Reid Endocrinology 09/09/21 MD Hermelinda Provider [address] [address] Lurdes Echeverria MD Assigned OBGYN Provider 09/23/21 [address] [facility] [address] [place], [place] [address] documented as of this encounter
--- OUTSIDE RECORDS SUMMARY | 2022-07-12 21:17 | XMS_ITS | Encounter Summary ---
:1995 Author Organization [place] Address [address] [facility] [place] [address] Care Team Providers Name Role Phone Hermelinda Reid MD Unavailable [phone] Hermelinda Reid MD Unavailable [phone] Ref-Primary, Physician Primary Care Provider [phone] Lore Son MD Unavailable [phone] Reason for Visit Reason Comments Ultrasound L2-T2DM Encounter Details Date Type Department Care Team Description 06/27/2022 PRE VISIT [facility] Mary Velazquez RN Ultra sound (L2-T2DM) [facility] [place] [address] [facility] [address] [place] [address] Social History Tobacco Use Types Packs/Day Years Used Date Smoking Tobacco: Never Smokeless Tobacco: Never Alcohol Use Standard Drinks/Week Comments Not Currently 0 (1 standard drink = 0.6 oz pure alcoho l) Sex Assigned at Date Recorded Female 09/11/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 Dion Ramirez MD [address] [facility] 400 [place], [place] [address] Liliana Wright MD 420 [facility] [address] [place], [place] [address] 07/26/2022 Office Visit Maternal and Dion Ramirez MD [address] [place], [place] [address] Medicine Liliana Wright MD 420 [facility] [address] [place], [place] [address] 08/13/2022 Appointment Cardiology Dion Ramirez MD [address] [place], [place] [address] (Wo rk) documented as of this encounter Visit Diagnoses Not on filedocumented in this encounter Care Teams Sex Offender Treatment Professional Relationship Specialty Start Date End Date No Ref-Primary, PCP - General 04/29/22 Physician MD Jeanette Endocrinology, 08/29/21 MD Hermelinda Diabetes, and [address] [place] [address] [facility] Metabolism 101 [place] [address] Radha Reid Endocrinology 09/09/21 MD Hermelinda Provider [address] [facility] 101 [place], [place] [address] Lore Son Assigned OBGYN Provider 05/18/22 MD Gianni [address] [place], [place] [phone] documented as of this encounter
--- OUTSIDE RECORDS SUMMARY | 2022-07-12 21:17 | XMS_ITS | Encounter Summary ---
:1995 Author Organization [place] Address [address] [place] [address] Care Team Providers Name Role Phone Hermelinda Reid MD Unavailable [phone] Hermelinda Reid MD Unavailable [phone] Dalia Ervin MD Unavailable No Ref-Primary, Physician Primary Care Provider [phone] Reason for Referral Diagnostic Imaging Ultrasound (Routine) - Pending Review Specialty Diagnoses / Procedures Referred By Contact Refer red To Contact Diagnoses related condition, antepartum Remington Lang Procedures [facility] MD Gianni [address] [place] [address] Referral ID Status Reason Start Date Expiration Date Visits V isits Requested Authorized [id number] Pending 05/13/2022 05/13/2023 1 1 Review Encounter Details Date Type Department Care Team Description 05/13/2022 Transcribe Orders [facility] Remington Lang related Maternal MD Gianni condition, Medicine Center [address] [facility] antepartum ([place] [address] Dx) [address] [facility] [phone] [address] (Work) [place], [place] [phone] [address] (Fax) [phone] Social History Tobacco Use Types Packs/Day Years Used Date Smoking Tobacco: Never Smokeless Tobacco: Never Alcohol Use Standard Drinks/Week Comments Not Currently 0 (1 standard drink = 0.6 oz pure alcoho l) Sex Assigned at Date Recorded Female 09/11/2021 7:15 AM 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 documented as of this encounter Plan of Treatment Upcoming Encounters Date Type Specialty Care Team Description 07/26/2022 Appointment Radiology. Dion Ramirez MD [address] [place] [address] Liliana Wright MD [address] [id number] 07/26/2022 Office Visit Maternal and Dion Ramirez MD [address] [place] [address] Medicine Liliana Wright MD [address] [address] 08/13/2022 Appointment Cardiology Dion Ramirez MD [address] [place] [address] (Wo rk) documented as of this encounter Results MFM US Comprehensive Single (07/05/2022 10:54 AM SELF SEALING FUEL TANK REPAIRER) Anatomical Region Laterality Modality Ultrasound Specimen (Source) Anatomical Collection Method Collection Time Re ceived Time Location / / Volume Laterality 07/05/2022 10:00 AM SELF SEALING FUEL TANK REPAIRER Impressions 07/05/2022 11:18 AM SELF SEALING FUEL TANK REPAIRER IMPRESSION 1) Sonographic biometry agrees with gest [...] for aneuploidy seen. Narrative 07/05/2022 11:18 AM SELF SEALING FUEL TANK REPAIRER Comprehensive Pat. Name: BEATRIZ APARICIO Study Date: 07/05 10:00am Pat. NO: [id number] Referring ??: KADEN LANG Site: [facility] Title Lawyer: Brandon Cespedes RDMS : 1995 Age: 26 [...] 0 lb 8 ?oz EFW by ?Hadlock ([id number]) Head / Face / Neck Biometry: Supervisory Forester ? 4.8 ? mm CM ?3.6 ? [...] arch view. Ductal arch view. 3-vessel view. 4-qccuap-jkyfxpt view. Abdomen ? Cord insertion. Extremities / Skeleton ?Rig ht foot. Gender: female. MATERNAL STRUCTURES Cervix ?Visualized ? Appearance: Appears Closed ? Approach - Transabdominal: Cervical length 32.0 mm Right Ovary ?Visualized Left Ovary ?Visualized RECOMMENDATION We discussed the findings on today's ult rasound with the patient. The patient is scheduled to return to [facility] in 3 weeks to reassess anatomy and growth. Your patient has been scheduled for a [facility] echocardiogram with Pediatric Cardiology. A copy [...] Pat. Name:Tamera APARICIO Date:07/05/20 10:00am Pat. NO: [id number] MD:REMINGTON ANDRADE [facility] Ber[facility] :1995Age:26 INDICATION Type 2 Diabetes [...] 0 lb 8 oz EFW by Hadlock ([id number]) Head / Face / Neck Biometry: Supervisory Forester 4.8 mm CM 3.6 mm Nasal bone [...] view. Ductal arch view. 3- vessel view. 8-ddfsgy-xkdvwsc view. Abdomen Cord insertion. Extremities / Skeleton Right foot. Gender: female. MATERNAL STRUCTURES Cervix Visualized Appearance: Appears Closed Approach - Transabdominal: Cervical hanna gth 32.0 mm Right Ovary Visualized Left Ovary Visualized RECOMMENDATION We discussed the findings on today's [facility] rasound with the patient. The patient is scheduled to return to [facility] in 3 weeks to reassess anatomy and growth. Your patient has been scheduled for a [facility] echocardiogram with Pediatric Cardiology. A copy [...] markers for aneuploidy seen. Remington Lang MD [facility] US ORDERABLES documented in this encounter Visit Diagnoses Diagnosis related condition, antepartum - Primary related condition, antepartum documented in this encounter Care Teams Classroom Aide Relationship Specialty Start Date End Date No Ref-Primary, PCP - General 04/29/22 Physician MD Jeanette Endocrinology, 08/29/21 MD Hermelinda Diabetes, and [address] [place] [address] [phone] Radha Reid Endocrinology 09/09/21 MD Hermelinda Provider 420 [facility] [address] [address] Dalia Ervin Assigned OBGYN Provider 10/07/21 MD Long [address] [place], [place] [phone] documented as of this encounter
--- OUTSIDE RECORDS SUMMARY | 2022-07-12 21:17 | XMS_ITS | Encounter Summary ---
:1995 Author Organization [place] Address [address] [place] [address] Care Team Providers Name Role Phone Hermelinda Reid MD Unavailable Hermelinda Reid MD Unavailable [phone] Lurdes Echeverria MD Unavailable Reason for Referral Care Coordination (Routine: Next available opening) - Pending Review Specialty Diagnoses / Procedures Referred By Contact Refer red To Contact Diagnoses Other specified counseling Valeria Bey MD [address] [place] [address] Referral ID Status Reason Start Date Expiration Date Visits V isits Requested Authorized [id number] Pending 09/25/2021 09/25/2022 1 1 Review HETIC FILAMENT 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 Encounter Details Date Type Department Care Team Description 09/25/2021 Orders Only [facility] Valeria Bey MD Other specified Care Coordination [address] counseling [address] [place] [phone] [phone] Social History Tobacco Use Types Packs/Day Years Used Date Smoking Tobacco: Never Smokeless Tobacco: Never Alcohol Use Standard Drinks/Week Comments Not Currently 0 (1 standard drink = 0.6 oz pure alcoho l) Sex Assigned at Date Recorded Female 09/11/2021 7:15 AM 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 documented as of this encounter Plan of Treatment Upcoming Encounters Date Type Specialty Care Team Description 07/26/2022 Appointment Radiology. Dion Ramirez MD [address] [place], [place] [address] Liliana Wright MD [address] [place] [address] [facility] 395 [place], [place] [address] 07/26/2022 Office Visit Maternal and Dion Ramirez MD [address] [place], [place] [address] Medicine Liliana Wright MD [address] [place] [address] [facility] [address] [place], [place] [address] 08/13/2022 Appointment Cardiology Dion Ramirez MD [address] [place] [address] (Wo rk) Scheduled Referrals Name Type Priority Associated Diagnoses Order S [facility] Referral Routine: Next Other specified Expected: Discharge - available opening counseling 09/25/2021 Referral to CC (Approximate) , Expires: 09/25/2022 documented as of this encounter Visit Diagnoses Diagnosis Other specified counseling documented in this encounter Care Teams Blacking Wheel Tender Relationship Specialty Start Date End Date MD Jeanette Endocrinology, 08/29/21 MD Hermelinda Diabetes, and [address] [facility] [address] [facility] [address] [place] [address] Radha Reid Endocrinology 09/09/21 MD Hermelinda Provider 420 [facility] [address] [facility] [address] [place] [address] Lurdes Echeverria MD Assigned OBGYN Provider 09/23/21 [address] [place] [address] 400 [place], [place] [phone] documented as of this encounter
--- OUTSIDE RECORDS SUMMARY | 2022-07-12 21:17 | XMS_ITS | Encounter Summary ---
:1995 Author Organization [place] Address [address] [place] [address] Care Team Providers Name Role Phone Hermelinda Reid MD Unavailable [phone] Hermelinda Reid MD Unavailable [phone] Dalia Ervin MD Unavailable Reason for Referral Diagnostic Imaging Ultrasound (Routine) - Pending Review Specialty Diagnoses / Procedures Referred By Contact Refer red To Contact Diagnoses test positive Dalia Ervin MD Procedures US OB <14 Weeks w Transvaginal Single [address] [place], [place] [address] Referral ID Status Reason Start Date Expiration Date Visits V isits Requested Authorized [id number] Pending 04/19/2022 04/19/2023 1 1 Review Encounter Details Date Type Department Care Team Description 04/19/2022 Orders Only [facility] Dalia Ervin Pregnanc y test [facility] MD Long positive (Primary Dx) [place] [address] [place], [place] [address] [address] [place], [place] [phone] (Work) [phone] Social History Tobacco Use Types Packs/Day Years Used Date Smoking Tobacco: Never Smokeless Tobacco: Never Alcohol Use Standard Drinks/Week Comments Not Currently 0 (1 standard drink = 0.6 oz pure alcoho l) Sex Assigned at Date Recorded Female 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 Dion Ramirez MD [address] [place] [address] Liliana Wright MD [address] [place] [address] [facility] [address] [place], [place] [address] 07/26/2022 Office Visit Maternal and Dion Ramirez MD [address] [place] [address] Medicine Liliana Wright MD 420 [facility] 395 [place], [place] [phone] 08/13/2022 Appointment Cardiology Dion Ramirez MD [address] [place] [address] (Wo rk) documented as of [...] Lore Son MD FACOG Obstetrics and Gynecology [facility] Narrative 04/29/2022 11:54 AM CDT [facility] ULTRASOUND - OB < 14 Weeks- [...] result documented in this encounter Care Teams Shell Trim Tool Setter Relationship Specialty Start Date End Date MD Jeanette Endocrinology, 08/29/21 MD Hermelinda Diabetes, and [address] [facility] Metabolism [address] [place] [address] Radha Reid Endocrinology 09/09/21 MD Hermelinda Provider [address] [facility] [address] [place], [place] [phone] Dalia Ervin Assigned OBGYN Provider 10/07/21 MD Long [address] [place] [address] documented as of this encounter
--- OUTSIDE RECORDS SUMMARY | 2022-07-12 21:17 | XMS_ITS | Encounter Summary ---
:1995 Author Organization [place] Address [address] [place] [address] Care Team Providers Name Role Phone Hermelinda Reid MD Unavailable [phone] Hermelinda Reid MD Unavailable [phone] Ref-Primary, Physician Primary Care Provider [phone] Lore Son MD Unavailable [phone] Reason for Visit Reason Comments Allied Health Visit Nurse only for [employer] paper work Encounter Details Date Type Department Care Team Description 05/20/2022 Allied Health/Nurse [facility] All ied Health Visit Visit Clinic [place] (Nurse only for [address] [facility]... [address] [place] [address] Social History Tobacco Use Types Packs/Day Years Used Date Smoking Tobacco: Never Smokeless Tobacco: Never Alcohol Use Standard Drinks/Week Comments Not Currently 0 (1 standard drink = 0.6 oz pure alcoho l) Sex Assigned at Date Recorded Female 09/11/2021 7:15 AM JUKEBOX CHECKER COVID-19 Exposure Response Date Recorded In the [...] Body Mass Index 35.33 09/28/2021 10:34 AM JUKEBOX CHECKER documented in this encounter Progress Notes Av Mcpherson - 05/20/2022 9:15 AM CDT Patient is here for a nurse only visit. [employer] paperwork filled out. Av Mcpherson CMA documented in this encounter Plan of Treatment Upcoming Encounters Date Type Specialty Care Team Description 07/26/2022 Appointment Radiology. Dion Ramirez MD [address] [place], [place] [address] Liliana Wright MD 420 [facility] 395 [place], [place] [address] 07/26/2022 Office Visit Maternal and Dion Ramirez MD [address] [place], [place] [address] [phone] Liliana Wright MD [address] [address] 08/13/2022 Appointment Cardiology Dion Ramirez MD [address] [place], [place] [address] (Wo rk) documented as of this encounter Procedures Procedure Name Priority Date/Time Associated Diagnosis Comme nts INVITAE Routine 05/20/2022 8:52 AM Supervision of high Re sults for this NON-INVASIVE CDT risk , procedure ar e in SCREENING antepartum the resul ts section. documented in this encounter Results [facility] Non-Invasive Screening (05/20/2022 8:52 AM CDT) [facility] Method Time Signature See Scanned INVITAE [...] Code Phon e Number INVITAE [address] [place] [address] documented in this encounter Visit Diagnoses Diagnosis Supervision of high risk , ante - Primary documented in this encounter Care Teams Cricket Coach Relationship Specialty Start Date End Date No Ref-Primary, PCP - General 04/29/22 Physician MD Jeanette Endocrinology, 08/29/21 MD Hermelinda Diabetes, and [address] [place] [address] [facility] Metabolism [address] [place] [address] Radha Reid Endocrinology 09/09/21 MD Hermelinda Provider [address] [place] [address] [address] Lore Son Assigned OBGYN Provider 05/18/22 MD Gianni [address] [place] [address] documented as of this encounter
--- OUTSIDE RECORDS SUMMARY | 2022-07-12 21:17 | XMS_ITS | Encounter Summary ---
:1995 Author Organization [place] Address [facility] 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 documented as of this encounter Plan of Treatment Upcoming Encounters Date Type Specialty Care Team Description 07/26/2022 Appointment Radiology. Dion Ramirez MD [address] [facility] [address] [place], [place] [address] Liilana Wright MD 420 [facility] [address] [place], [place] [address] 07/26/2022 Office Visit Maternal and Dion Ramirez MD [address] [place], [place] [address] Medicine Liliana Wright MD [address] [place] [address] [facility] [address] [place], [place] [address] 08/13/2022 Appointment Cardiology Dion Ramirez MD [address] [place] [address] (Wo rk) documented as of this encounter Visit Diagnoses Not on filedocumented in this encounter Care Teams Engineering Mechanic Relationship Specialty Start Date End Date No Ref-Primary, PCP - General 04/29/22 Physician MD Jeanette Endocrinology, 08/29/21 MD Hermelinda Diabetes, and 420 [facility] Metabolism 101 [place] [address] Radha Reid Endocrinology 09/09/21 MD Hermelinda Provider 420 [facility] [address] [place] [address] Dalia Ervin Assigned OBGYN Provider 10/07/21 MD Long [address] [place], [place] [phone] documented as of this encounter
--- OUTSIDE RECORDS SUMMARY | 2022-07-12 21:17 | XMS_ITS | Encounter Summary ---
:1995 Author Organization [place] Address [address] [place] [address] Care Team Providers Name Role Phone Hermelinda Reid MD Unavailable [phone] Hermelinda Reid MD Unavailable [phone] Lurdes Echeverria MD Unavailable Reason for Visit Reason Comments staple removal Encounter Details Date Type Department Care Team Description 09/28/2021 Office Visit [facility] Dalia Ervin S/P C-se ction (Primary [facility] MD Long Dx) [place] [address] [place] [address] 303 [facility] [address] [address] [place], [place] (Work) [address] [phone] Social History Tobacco Use Types Packs/Day Years Used Date Smoking Tobacco: Never Smokeless Tobacco: Never Tobacco Cessation: Counseling Given: No Alcohol Use Standard Drinks/Week Comments Not Currently 0 (1 standard drink = 0.6 oz pure alcoho l) Sex Assigned at Date Recorded Female 09/11/2021 7:15 AM 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 documented as of this encounter Last Filed Vital Signs Vital Sign Reading Time Taken Comments Blood Pressure 118/80 09/28/2021 10:34 AM AIRBORNE WEAPONS TECHNICAL MANAGER Pulse - - Temperature - - Respiratory Rate - - Oxygen Saturation - - Inhaled Oxygen Concentration - - Weight 88.5 kg (195 lb) 09/28/2021 10:34 AM AIRBORNE WEAPONS TECHNICAL MANAGER Height 154.9 cm (5' 1) 09/28/2021 10:34 AM AIRBORNE WEAPONS TECHNICAL MANAGER Body Mass Index 36.84 09/28/2021 10:34 AM AIRBORNE WEAPONS TECHNICAL MANAGER documented in this encounter Progress Notes Dalia [...] Dalia Ervin MD, MPH Obstetrics and Gynecology ORNE WEAPONS TECHNICAL MANAGER documented in this encounter Nursing Notes Shanna [...] following HM Due: NONE Shanna Jimenez CMA ORNE WEAPONS TECHNICAL MANAGER documented in this encounter Plan of Treatment Upcoming Encounters Date Type Specialty Care Team Description 07/26/2022 Appointment Radiology. Dion Ramirez MD [address] [place], [place] [address] Liliana Wright MD 420 [facility] 395 [place], [place] [address] 07/26/2022 Office Visit Maternal and Dion Ramirez MD [address] [place], [place] [address] [phone] Liliana Wright MD 420 [facility] 395 [place], [place] [address] 08/13/2022 Appointment Cardiology Dion Ramirez MD [address] [place] [address] (Wo rk) documented as of this encounter Visit Diagnoses Diagnosis S/P - Primary Other postprocedural status documented in this encounter Care Teams Bean Picker Machine Operator Relationship Specialty Start Date End Date MD Jeanette Endocrinology, 08/29/21 MD Hermelinda Diabetes, and 420 [facility] Metabolism [address] [place] [address] Radha Reid Endocrinology 09/09/21 MD Hermelinda Provider [address] [place] [address] [facility] 101 [place] [address] Lurdes Echeverria MD Assigned OBGYN Provider 09/23/21 10/06/[address] [place] [address] documented as of this encounter
--- OUTSIDE RECORDS SUMMARY | 2022-07-12 21:17 | XMS_ITS | Encounter Summary ---
:1995 Author Organization [place] Address [address] [place] [address] Care Team Providers Name Role Phone Hermelinda Reid MD Unavailable [phone] Hermelinda Reid MD Unavailable [phone] No Ref-Primary, Physician Primary Care Provider [phone] Lore Son MD Unavailable [phone] Reason for Referral Diagnostic Imaging Ultrasound (Routine) - Pending Review Specialty Diagnoses / Procedures Referred By Contact Refer red To Contact Diagnoses Encounter for follow-up ultrasound of anatomy Dion Ramirez MD Procedures MFM US Comprehensive Single F/U [address] [place], [place] [address] Referral ID Status Reason Start Date Expiration Date Visits V isits Requested Authorized [id number] Pending 07/05/2022 07/05/2023 1 1 Review AIDE (Routine) - Pending Review Specialty Diagnoses / Procedures Referred By Contact Refer red To Contact Diagnoses with type 2 diabetes mellitus in second trimester Dion Ramirez MD Procedures Echo (TTE) Complete [address] [place], [place] [address] Referral ID Status Reason Start Date Expiration Date Visits V isits Requested Authorized [id number] Pending 07/05/2022 07/05/2023 1 1 Review AIDE Reason for Visit Reason Comments Ultrasound L2-T2DM Encounter Details Date Type Department Care Team Description 07/05/2022 Office Visit [facility] Sharon Son MD [address] [place] [address] with type 2 diabetes mellitus in second trimester (Primary Dx); Maternal Dion Ramirez MD [address] [place] [address] Encounter for follow-up ultrasound of [facility] [address] [facility] [address] [place] [address] Social History Tobacco Use Types Packs/Day Years Used Date Smoking Tobacco: Never Smokeless Tobacco: Never Alcohol Use Standard Drinks/Week Comments Not Currently 0 (1 standard drink = 0.6 oz pure alcoho l) Sex Assigned at Date Recorded Female 09/11/2021 7:15 AM MED AIDE COVID-19 Exposure Response Date Recorded In the last 10 days, have you been in contact No / Unsure 07/05/2022 10:09 AM MED AIDE with someone who was confirmed or suspected to have Coronavirus/COVID-19? documented as of this encounter Progress Notes Dion Ramirez MD - 07/05/2022 10:45 AM CST Please see Imaging tab under Chart Review for details of today's US at the [facility]. Dion Ramirez MD Maternal- Medicine AIDE documented in this encounter Plan of Treatment Upcoming Encounters Date Type Specialty Care Team Description 07/26/2022 Appointment Radiology. Dion Ramirez MD [address] [place] [address] Liliana Wright MD 420 [facility] [address] [place] [address] 07/26/2022 Office Visit Maternal and Dion Ramirez MD [address] [place], [place] [address] Medicine Liliana Wright MD [address] [place] [facility] [address] [place], [place] [address] 08/13/2022 Appointment Cardiology Dion Ramirez MD [address] [place], [place] [address] (Wo rk) Scheduled Orders Name Type Priority Associated Order Schedule Diagnoses Echo (TTE) Echocardiography Routine with type Expected: Complete 2 diabetes mellitus 08/13/19 23 in second trimester (Approxi mate), Expires: 07/05/2023 [facility] US Comprehensive Imaging Routine Encounter for Expect ed: Single F/U follow-up 07/26/2022 ultrasound of (Approxi mate), anatomy Expires: 07/05/2023 documented as of this encounter Visit Diagnoses Diagnosis with type 2 diabetes mellitus in second trimester - Primary Encounter for follow-up ultrasound of fe quinn anatomy documented in this encounter Care Teams Wind Farm Engineer Relationship Specialty Start Date End Date No Ref-Primary, PCP - General 04/29/22 Physician MD Jeanette Endocrinology, 08/29/21 MD Hermelinda Diabetes, and [address] [place] [facility] Metabolism [address] [place] [address] Radha Reid Endocrinology 09/09/21 MD Hermelinda Provider 420 [facility] [address] [place], [place] [address] Lore Son Assigned OBGYN Provider 05/18/22 MD Gianni [address] [place] [address] documented as of this encounter
--- OUTSIDE RECORDS SUMMARY | 2022-07-12 21:17 | XMS_ITS | Encounter Summary ---
:1995 Author Organization [place] Address [facility] [place] [address] Care Team Providers Name Role Phone Hermelinda Reid MD Unavailable [phone] Hermelinda Reid MD Unavailable [phone] Lurdes Echeverria MD Unavailable Dalia Ervin MD Unavailable No Ref-Primary, Physician Primary Care Provider [phone] Lore Son MD Unavailable [phone] Encounter Details Date Type Department Care Team Description 09/25/2021 Documentation Only INTERFACED REPORT Unknown, Provider Social History Tobacco Use Types Packs/Day Years Used Date Smoking Tobacco: Never Smokeless Tobacco: Never Alcohol Use Standard Drinks/Week Comments Not Currently 0 (1 standard drink = 0.6 oz pure alcoho l) Sex Assigned at Date Recorded Female 09/11/2021 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 documented as of this encounter Plan of Treatment Upcoming Encounters Date Type Specialty Care Team Description 07/26/2022 Appointment Radiology. Dion Ramirez MD [address] [facility] [address] [facility] [address] [place], [place] [address] Liliana Wright MD 420 [facility] [address] [place], [place] [address] 07/26/2022 Office Visit Maternal and Dion Ramirez MD [address] [place], [place] [address] Medicine Liliana Wright MD [address] [place] [address] [facility] [address] [place], [place] [address] 08/13/2022 Appointment Cardiology Dion Ramirez MD [address] [place] [address] (Wo rk) documented as of this encounter Visit Diagnoses Not on filedocumented in this encounter Care Teams Data Systems Manager Relationship Specialty Start Date End Date No Ref-Primary, PCP - General 04/29/22 Physician MD Jeanette Endocrinology, 08/29/21 MD Hermelinda Diabetes, and [address] [place] [address] [facility] Metabolism [address] [place], [place] [phone] Radha Reid Endocrinology 09/09/21 MD Hermelinda Provider [address] [facility] [address] [facility] [address] [place], [place] [address] Lurdes Echeverria MD Assigned OBGYN Provider 09/23/21 10/06/[address] [place], [place] [phone] Dalia Ervin Assigned OBGYN Provider 10/07/21 MD Long [address] [place] [address] Lore Son Assigned OBGYN Provider 05/18/22 MD Gianni [address] [place] [address] documented as of this encounter
--- OUTSIDE RECORDS SUMMARY | 2022-07-12 21:17 | XMS_ITS | Encounter Summary ---
:1995 Author Organization [place] Address [facility]0 [facility] [place] [address] Care Team Providers Name Role Phone Hermelinda Reid MD Unavailable [phone] Hermelinda Reid MD Unavailable [phone] Dalia Ervin MD Unavailable No Ref-Primary, Physician Primary Care Provider [phone] Encounter Details Date Type Department Care Team Description 05/09/2022 Travel Social History Tobacco Use Types Packs/Day Years Used Date Smoking Tobacco: Never Smokeless Tobacco: Never Alcohol Use Standard Drinks/Week Comments Not Currently 0 (1 standard drink = 0.6 oz pure alcoho l) Sex Assigned at Date Recorded Female 09/11/2021 7:15 AM MEDIA BUYER COVID-19 Exposure Response Date Recorded In the last 10 days, have you been in contact Unable to asse ss 05/09/2022 1:59 PM CDT with someone who was confirmed or suspected to have Coronavirus/COVID-19? documented as of this encounter Plan of Treatment Upcoming Encounters Date Type Specialty Care Team Description 07/26/2022 Appointment Radiology. Dion Ramirez MD [address] [facility] 400 [place], [place] [address] Liliana Wright MD 420 [facility] 395 [place], [place] [address] 07/26/2022 Office Visit Maternal and Dion Ramirez MD [address] [place], [place] [address] Medicine Liliana Wright MD [address] [facility] [address] [place], [place] [address] 08/13/2022 Appointment Cardiology Dion Ramirez MD [address] [place] [address] (Wo rk) documented as of this encounter Visit Diagnoses Not on filedocumented in this encounter Care Teams Pressure Steamer Tender Relationship Specialty Start Date End Date No Ref-Primary, PCP - General 04/29/22 Physician MD Jeanette Endocrinology, 08/29/21 MD Hermelinda Diabetes, and 420 [facility] Metabolism [address] [place] [address] Radha Reid Endocrinology 09/09/21 MD Hermelinda Provider 420 [facility] 101 [place] [address] Dalia Ervin Assigned OBGYN Provider 10/07/21 MD Long [address] [facility] [address] [address] [place], [place] [phone] documented as of this encounter
--- OUTSIDE RECORDS SUMMARY | 2022-07-12 21:17 | XMS_ITS | Encounter Summary ---
:1995 Author Organization [place] Address [address] [place] [address] Care Team Providers Name Role Phone Hermelinda Reid MD Unavailable [phone] Hermelinda Reid MD Unavailable [phone] Dalia Ervin MD Unavailable No Ref-Primary, Physician Primary Care Provider [phone] Reason for Visit Reason Comments Care Encounter Details Date Type Department Care Team Description 05/09/2022 Office [facility] History of labor; Visit Clinic [place] Supervision of high risk pre gnancy, antepartum [address] [place] [address] Social History Tobacco Use Types Packs/Day Years Used Date Smoking Tobacco: Never Smokeless Tobacco: Never Alcohol Use Standard Drinks/Week Comments Not Currently 0 (1 standard drink = 0.6 oz pure alcoho l) Sex Assigned at Date Recorded Female 09/11/2021 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 Dion Ramirez MD 606 [facility] 400 [place] [address] Liliana Wright MD [address] [place] [address] [facility] [address] [place], [place] [address] 07/26/2022 Office Visit Maternal and Dion Ramirez MD [address] [place] [address] Medicine Liliana Wright MD [address] [place] [address] [facility] [address] [place], [place] [address] 08/13/2022 Appointment Cardiology Dion Ramirez MD [address] [place] [address] (Wo rk) documented as of [...] Code Phon e Number [facility] [place] [address]ag[address] [facility], Room D297 Varicella Zoster Virus Antibody [...] LAB - BLOOD ORDERABLES Performing Organization Address City/[facility] [place]/ZIP [facility] Phon e Number UM SPECIALTY CORE/PROT/ENDO [place] Special[place], [place] [address] Core/Prot/Endo 500 [facility] [address] Building, Room 3-580 Hepatitis [...] LAB - BLOOD ORDERABLES Performing Organization Address City/[facility] [place]/[facility] Phon e Number UM SPECIALTY CORE/PROT/ENDO UM [place], [place] [address] Core/Prot/Endo 500 [facility] J [facility], Room 3-580 Treponema Abs w Reflex [...] LAB - BLOOD ORDERABLES Performing Organization Address City/State/[facility] Phon e Number UM SPECIALTY CORE/PROT/ENDO [place], [place] [address] Core/Prot/Endo 500 [facility] [address] Building, Room 3-580 [...] Code Phon e Number SPECIALTY CORE/PROT/ENDO Specialty [place], [place] [address] Core/Prot/Endo [address] [facility] [address] [facility], Room 3-580 HIV Antigen Antibody Combo (05/13/2022 [...] Code Phon e Number SPECIALTY CORE/PROT/ENDO Specialty [place], [place] [address] Core/Prot/Endo [address] [facility] [address] Building, Room 3-580 (ABNORMAL) CBC with platelets (05/13/2022 9:50 AM CDT) [facility] Method Time Signature WBC Count 7.8 [...] City/State/ZIP Code Phon e Number OX LABORATORY [facility], [place] [phone] [facility] [id number] [place] [address] Lab (no room number, 1st floor of clinic) OX LABORATORY [place], [place] [phone] [facility] [id number] [address] Lab (no room number, 1st floor of clinic) Hepatitis B surface antigen (05/13/2022 9:50 AM CDT) [facility] Method Time Signature Hepatitis B Nonreactive [...] e Number UM SPECIALTY CORE/PROT/ENDO UM Specialty [place], [place] [address] Core/Prot/Endo [address] [facility] [address] Building, Room 3-580 documented in this encounter Visit Diagnoses Diagnosis History of labor Personal history of pre-term labor Supervision of high risk , ante documented in this encounter Care Teams Radiation Oncology Manager Relationship Specialty Start Date End Date No Ref-Primary, PCP - General 04/29/22 Physician MD Jeanette Endocrinology, 08/29/21 MD Hermelinda Diabetes, and 420 [facility] Metabolism [address] [place] [address] Radha Reid Endocrinology 09/09/21 MD Hermelinda Provider 420 [facility] [address] [address] Dalia Ervin Assigned OBGYN Provider 10/07/21 MD Long [address] [place], [place] [id number] documented as of this encounter
--- OUTSIDE RECORDS SUMMARY | 2022-07-12 21:17 | XMS_ITS | Encounter Summary ---
:1994 Author Organization [place] Address [address] [place] [address] Care Team Providers Name Role Phone Hermelinda Reid MD Unavailable [phone] Hermelinda Reid MD Unavailable [phone] Dalia Ervin MD Unavailable No Ref-Primary, Physician Primary Care Provider [phone] Reason for Visit Diagnostic Imaging Ultrasound (Routine) - Pending Review Specialty Diagnoses / Procedures Referred By Contact Refer red To Contact Diagnoses test positive Dalia Ervin MD Procedures US OB <14 Weeks w Transvaginal Single [address] [place], [place] [address] Referral ID Status Reason Start Date Expiration Date Visits V isits Requested Authorized [id number] Pending 04/19/2022 04/19/2023 1 1 Review Encounter Details Date Type Department Care Team Description 04/29/2022 Ancillary Procedure [facility] Pre gnancy test Clinic [place] positive [place] [address] [address] Social History Tobacco Use Types Packs/Day Years Used Date Smoking Tobacco: Never Smokeless Tobacco: Never Alcohol Use Standard Drinks/Week Comments Not Currently 0 (1 standard drink = 0.6 oz pure alcoho l) Sex Assigned at Date Recorded Female 09/11/2021 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 documented as of this encounter Plan of Treatment Upcoming Encounters Date Type Specialty Care Team Description 07/26/2022 Appointment Radiology. Dion Ramirez MD [address] [place], [place] [address] Liliana Wright MD 420 [facility] 395 [place], [place] [address] 07/26/2022 Office Visit Maternal and Dion Ramirez MD [address] [place] [address] Medicine Liliana Wright MD 420 [facility] 395 [place] [address] 08/13/2022 Appointment Cardiology Dion Ramirez MD [address] [place] [address] (Wo rk) documented as of [...] Lore Son MD FACOG Obstetrics and Gynecology [facility] Narrative 04/29/2022 11:54 AM CDT [facility] ULTRASOUND - OB < 14 Weeks- Transabdomin [...] result documented in this encounter Care Teams Piano Builder Relationship Specialty Start Date End Date No Ref-Primary, PCP - General 04/29/22 Physician MD Jeanette Endocrinology, 08/29/21 MD Hermelinda Diabetes, and [address] [place] [facility] Metabolism [address] [place] [address] Radha Reid Endocrinology 09/09/21 MD Hermelinda Provider 420 [facility] SE [facility] [address] [place], [place] [phone] Dalia Ervin Assigned OBGYN Provider 10/07/21 MD Long [address] [place], [place] [phone] documented as of this encounter
--- OUTSIDE RECORDS SUMMARY | 2022-07-12 21:17 | XMS_ITS | Encounter Summary ---
:1994 Author Organization [place] Address [address] [facility] [place] [address] Care Team Providers Name Role Phone Hermelinda Reid MD Unavailable [phone] Hermelinda Reid MD Unavailable [phone] Ref-Primary, Physician Primary Care Provider [phone] Lore Son MD Unavailable [phone] Encounter Details Date Type Department Care Team Description 05/20/2022 Travel Social History Tobacco Use Types Packs/Day Years Used Date Smoking Tobacco: Never Smokeless Tobacco: Never Alcohol Use Standard Drinks/Week Comments Not Currently 0 (1 standard drink = 0.6 oz pure alcoho l) Sex Assigned at Date Recorded Female 09/11/2021 7: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 documented as of this encounter Plan of Treatment Upcoming Encounters Date Type Specialty Care Team Description 07/26/2022 Appointment Radiology. Dion Ramirez MD [address] [facility] 400 [place], [place] [address] Liliana Wright MD 420 [facility] 395 [place], [place] [address] 07/26/2022 Office Visit Maternal and Dion Ramirez MD [address] [place], [place] [address] Medicine Liliana Wright MD [address] [place] [address] [place], [place] [address] 08/13/2022 Appointment Cardiology Dion Ramirez MD [address] [place] [address] (Wo rk) documented as of this encounter Visit Diagnoses Not on filedocumented in this encounter Care Teams Document Reviewer Relationship Specialty Start Date End Date No Ref-Primary, PCP - General 04/29/22 Physician MD Jeanette Endocrinology, 08/29/21 MD Hermelinda Diabetes, and 420 [facility] Metabolism [address] [place] [address] Radha Reid Endocrinology 09/09/21 MD Hermelinda Provider 420 [facility] 101 [place] [address] Lore Son Assigned OBGYN Provider 05/18/22 MD Gianni [address] [place] [address] documented as of this encounter
--- OUTSIDE RECORDS SUMMARY | 2022-07-12 21:17 | XMS_ITS | Encounter Summary ---
:1995 Author Organization [facility] Address [address] [place] [address] Care Team Providers Name Role Phone Hermelinda Reid MD Unavailable [phone] Hermelinda Reid MD Unavailable [phone] Dalia Ervin MD Unavailable No Ref-Primary, Physician Primary Care Provider [phone] Reason for Referral Consultation (Routine: Next available opening) - Pending Review Specialty Diagnoses / Procedures Referred By Contact Refer red To Contact Diagnoses Supervision of high risk , antepartum Lore Son [facility] Med MD Gianni [address] [facility] [address] [facility] [address] [place] [address] [place] [address] Phone: Fax: Referral ID Status Reason Start Date Expiration Date Visits V isits Requested Authorized [id number] Pending 05/13/2022 05/13/2023 1 1 Review Reason for Visit Reason Comments Care New visit 10 weeks 6 days DM on Insulin Pap UTD Labs and Urine G/C due Encounter Details Date Type Department Care Team Description 05/13/2022 Office [facility] Lore Son In gh-risk in first trimester (Primary Dx); Visit Clinic Citlali Archer MD Screen for STD (sexually transmitted dis ease); [place] [address] [facility] Supervision of high risk , ante [address] [address] [place], [place] [phone] (Work) [phone] Social History Tobacco Use Types Packs/Day Years Used Date Smoking Tobacco: Never Smokeless Tobacco: Never Tobacco Cessation: Counseling Given: No Alcohol Use Standard Drinks/Week Comments Not Currently 0 (1 standard drink = 0.6 oz pure alcoho l) Sex Assigned at Date Recorded Female 09/11/2021 7:15 AM RESOURCE COORDINATOR COVID-19 Exposure Response Date Recorded In [...] Body Mass Index 35.45 09/28/2021 10:34 AM RESOURCE COORDINATOR documented in this encounter Progress Notes Lore Son MD - 05/13/2022 10:30 AM CDT Valery is a 26 year old 10w6d by LMP c/w 8w3d ultrasound, here for new OB visit. Reports doing well. Reports better control of her sugars when it comes to her underlying diabetes mellitus.She shows my a [employer] ronan that shows a Hgb A1C of 5.5 back in January 2022. She admits that in herlast , she did not take her management of her diabetes seriously. She is now [facility], [facility] Nicole Rubi, who manages her [...] our diabetic educators and more importantly an master control supervisor, so as to best avoid maternal and [...] weeks. SAB precautions reviewed Lore Son MD [facility] documented in this encounter Nursing Notes Toshia [...] MD [address] [place], [place] [address] Liliana Wright MD [address] [facility] [address] [place], [place] [address] 07/26/2022 Office Visit Maternal and Dion Ramirez MD [address] [place] [address] Medicine Liliana Wright MD [address] [facility] [address] [place], [place] [address] 08/13/2022 Appointment Cardiology Dion Ramirez MD [address] [place] [address] (Wo rk) Scheduled Orders Name [...] Code Phon e Number UU IDD LABORATORY [facility] [place] [address] Diag. Lab 500 [facility] [place] Building, Room D297 Adult Type and Screen (05/13/2022 9:50 AM CDT) [facility] Method Time Signature ABO/RH(D) O POS 05/12/2022 BLOOD 7:00 PM CDT BANK Antibody Negative Negative 05/12/2022 BLOOD Screen 7:00 PM CDT BANK SPECIMEN [id number] 05/12/2022 BLOOD EXPIRATION 7:00 PM CDT BANK [...] e Number BLOOD BANK [address] [place] [address] Varicella Zoster Virus Antibody IgG (05/13/2022 9:50 AM CDT) [facility] Signature VZV Tamar IgG 22.8 <135.0 05/13/2022 [...] e Number UM SPECIALTY CORE/PROT/ENDO [place], [place] [address] Core/Prot/Endo 500 [facility] J Building, Room 3-580 Hepatitis C antibody [...] Phon e Number SPECIALTY CORE/PROT/ENDO [place], [place] [address] Core/Prot/Endo 500 [facility] Unit J [facility], Room 3-580 Treponema Abs w Reflex to RPR and Titer (05/13/2022 9:50 AM CDT) [facility] Method Time Signature Treponema Nonreactive Nonreactive [...] Phon e Number SPECIALTY CORE/PROT/ENDO [place], [place] [address] Core/Prot/Endo 500 [facility] [address] Building, Room 3-580 Rubella Antibody IgG Quantitative (05/13/2022 9:50 AM CDT) [facility] Signature Rubella Tamar IgG 1.01 [...] e Number UM SPECIALTY CORE/PROT/ENDO [place], [place] [address] Core/Prot/Endo 500 [facility] Unit Building, Room 3-580 HIV Antigen Antibody Combo (05/13/2022 9:50 AM CDT) [facility] Method Time Signature HIV Antigen Nonreactive [...] e Number UM SPECIALTY CORE/PROT/ENDO [place], [place] 5545 Core/Prot/Endo 500 [facility], Room 3-580 (ABNORMAL) CBC with platelets (05/13/2022 9:50 AM CDT) [facility] Method Time Signature WBC Count 7.8 [...] City/State/ZIP Code Phon e Number OX LABORATORY [place], [place] [phone] [facility] [phone] [place] [address] Lab (no room number, 1st floor of clinic) [facility] [place], [place] [phone] [place] [facility] [address] Lab (no room number, 1st floor of clinic) Hepatitis B surface antigen (05/13/2022 9:50 AM CDT) [facility] gist Method Time Signature Hepatitis B [...] e Number UM SPECIALTY CORE/PROT/ENDO [place], [place] [address] Core/Prot/Endo [address] [place] [address] [address] Building, Room 3-580 CHLAMYDIA TRACHOMATIS PCR (05/13/2022 9:47 AM CDT) [facility] Method Time Signature Chlamydia Negative Negative 05/14/2022 [...] MICRO GENERAL KAROLINEA HIMANSHUS Performing Organization Address City/[facility] Phon e Number UU IDD LABORATORY [facility] [place] [address] Diag. Lab 500 [facility] D297 NEISSERIA GONORRHOEA PCR (05/13/2022 9:47 AM CDT) [facility] Method Time Signature Neisseria Negative Negative 05/14/2022 UU IDD gonorrhoeae 1:02 PM CDT LABORATORY Comment: Negative for N. gonorrhoeae rRN A by chief optometry service mediated amplification. A negative result by chief optometry service mediate d amplification does not preclude the [...] MICRO GENERAL JORDAN MENG Performing Organization Address City/[facility] Code Phon e Number U[facility] IDD LABORATORY [facility] [place] [address] Diag. Lab 500 [facility], Room D297 documented in this encounter Visit Diagnoses Diagnosis High-risk in first trimester - Primary Screen for STD (sexually transmitted dis ease) Screening examination for venereal disea se Supervision of high risk , ante documented in this encounter Care Teams Web Press Operator Helper Offset Relationship Specialty Start Date End Date No Ref-Primary, PCP - General 04/29/22 Physician MD Jeanette Endocrinology, 08/29/21 MD Hermelinda Diabetes, and [address] [place] [address] [address] Radha Reid Endocrinology 09/09/21 MD Hermelinda Provider [address] [facility] [address] [place], [place] [address] Dalia Ervin Assigned OBGYN Provider 10/07/21 [place] [address] [place], [place] [id number] documented as of this encounter
--- OUTSIDE RECORDS SUMMARY | 2022-07-12 21:17 | XMS_ITS | Clinical Summary ---
:1995 Author Organization [facility] Address [address] [place] [address] Care Team Providers Name Role Phone Hermelinda Reid MD Unavailable [phone] Hermelinda Reid MD Unavailable [phone] No Ref-Primary, Physician Primary Care Provider [phone] Remington Son MD Unavailable [phone] Allergies No known active allergies Medications Medication [...] Invita... 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 Last Filed Vital Signs Vital Sign Reading Time Taken Comments Blood Pressure 128/74 05/13/2022 10:04 AM CDT Pulse 101 05/13/2022 10:04 AM CDT Temperature 36.7 ??C (98 ??F) 09/25/2021 2:08 PM MOTOR ASSEMBLER Respiratory Rate 27 09/25/2021 4:00 PM MOTOR ASSEMBLER Oxygen Saturation 100% 09/25/2021 4:00 PM MOTOR ASSEMBLER Inhaled Oxygen Concentration - - Weight 84.8 kg (187 lb) 05/20/2022 8:47 AM CDT Height 154.9 cm (5' 1) 09/28/2021 10:34 AM MOTOR ASSEMBLER Body Mass Index 35.33 09/28/2021 10:34 AM MOTOR ASSEMBLER Plan of Treatment Upcoming Encounters Date Type Specialty Care Team Description 07/26/2022 Appointment Radiology. Dion Ramirez MD [address] [place], [place] [address] Liliana Wright MD [address] [place] [id number] 07/26/2022 Office Visit Maternal and Dion Ramirez MD [address] [place], [place] [phone] Medicine Liliana Wright MD [address] [address] 08/13/2022 Appointment Cardiology Dion Ramirez MD [address] [place], [place] [address] (Wo rk) Health Maintenance Due Date Last [...] relate d Results for this SINGLE AM MOTOR ASSEMBLER condition, procedure are i n antepartum the [...] M US Comprehensive Single (07/05/2022 10:54 AM MOTOR ASSEMBLER) Anatomical Region Laterality Modality Ultrasound Specimen (Source) Anatomical Collection Method Collection Time Re ceived Time Location / / Volume Laterality 07/05/2022 10:00 AM MOTOR ASSEMBLER Impressions 07/05/2022 11:18 AM MOTOR ASSEMBLER IMPRESSION 1) Sonographic biometry agrees with gest [...] for aneuploidy seen. Narrative 07/05/2022 11:18 AM MOTOR ASSEMBLER Comprehensive Pat. Name: BEATRIZ SCOTT Study Date: 07/05 10:00am Pat. 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 4.8 ? mm CM ?3.6 ? [...] arch view. Ductal arch view. 3-vessel view. 5-bxjxvw-uqomucq view. Abdomen ? Cord insertion. Extremities / Skeleton ?Rig ht foot. Gender: female. MATERNAL STRUCTURES Cervix ?Visualized ? Appearance: Appears Closed ? Approach - Transabdominal: Cervical length 32.0 mm Right Ovary ?Visualized Left Ovary ?Visualized RECOMMENDATION We discussed the findings on today's ult rasound with the patient. The patient is scheduled to return to [facility] in 3 weeks to reassess anatomy and [...] Pat. Name:Tamera SCOTT Date:07/05/20 10:00am Pat. 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 Ductal arch view. 3- vessel view. 9-xpjbmj-owlsnsl view. Abdomen Cord insertion. Extremities / Skeleton Right foot. Gender: female. MATERNAL STRUCTURES Cervix Visualized Appearance: Appears Closed Approach - Transabdominal: Cervical hanna gth 32.0 mm Right Ovary Visualized Left Ovary Visualized RECOMMENDATION We discussed the findings on today's [facility] rasound with the patient. The patient is scheduled to return to [facility] in 3 weeks to reassess anatomy and growth. Your patient has been scheduled for a [facility] echocardiogram with Pediatric Cardiology. A copy [...] markers for aneuploidy seen. Remington Son MD [facility] US ORDERABLES [facility] Non-Invasive Screening (05/20/2022 8:52 AM CDT) [facility] Method Time Signature See Scanned INVITAE [...] City/State/ZIP Code Phon e Number EREN [address] [place] [address] Urine Culture Aerobic Bacterial (05/13/2022 10:48 AM [...] MICRO GENERAL ORDERA BLES Performing Organization Address City/[facility]/ZIP Code Phon e Number UU IDD LABORATORY [facility] [place] [address] Diag. Lab 500 [facility], Room D297 Adult Type and Screen (05/13/2022 9:50 AM CDT) [facility] Method Time Signature ABO/RH(D) O POS 05/12/2022 BLOOD 7:00 PM CDT BANK Antibody Negative Negative 05/12/2022 BLOOD Screen 7:00 PM CDT BANK SPECIMEN [id number] 05/12/2022 BLOOD EXPIRATION 7:00 PM CDT BANK [...] e Number BLOOD BANK [address] [phone] Varicella Zoster Virus Antibody IgG (05/13/2022 9:50 AM CDT) [facility] Method Time Signature VZV Tamar IgG [...] LAB - BLOOD ORDERABLES Performing Organization Address City/[facility]/ZIP Code Phon e Number UM SPECIALTY CORE/PROT/ENDO UM Specialty [place], [place] [address] Core/Prot/Endo 500 [facility] Unit [facility], Room 3-580 Rubella Antibody IgG Quantitative (05/13/2022 9:50 AM CDT) [facility] Time Signature Rubella Tamar IgG 1.01 [...] e Number UM SPECIALTY CORE/PROT/ENDO [place], [place] [address] Core/Prot/Endo 500 [facility] Unit J Building, Room 3-580 HIV Antigen Antibody Combo (05/13/2022 9:50 AM CDT) [facility] Method Time Signature HIV Antigen Nonreactive [...] LAB - BLOOD ORDERABLES Performing Organization Address City/[facility]/ZIP Code Phon e Number SPECIALTY CORE/PROT/ENDO Specialty [place], [place] [address] Core/Prot/Endo 500 [facility] Unit J [facility], Room 3-580 Treponema Abs w Reflex to RPR and Titer (05/13/2022 9:50 AM CDT) [facility] Method Time Signature Treponema Nonreactive Nonreactive 05/13/2022 UM SPECIALTY Antibody 4:09 PM CDT CORE/PROT/EN Total DO Specimen Anatomical Collection Method / Collection Time Recei iva Time (Source) Location / Volume Laterality Blood STRUCTURE OF RIGHT Venipuncture / 05/13/2022 9:50 10/0 10/2021 9:51 UPPER LIMB / Unknown AM CDT AM CDT Unknown Remington Son MD LAB - BLOOD ORDERABLES Performing Organization Address City/[facility]/ZIP Code Phon e Number SPECIALTY CORE/PROT/ENDO [place], [place] [address] Core/Prot/Endo 500 [facility] Unit [facility], Room 3-580 Hepatitis C antibody (05/13/2022 9:50 AM CDT) [facility] gist Method Time Signature Hepatitis C Nonreactive [...] Code Phon e Number SPECIALTY CORE/PROT/ENDO [place]ty [place], [place] [address] Core/Prot/Endo 500 [facility], Room 3-580 Hepatitis B surface antigen (05/13/2022 9:50 AM CDT) [facility] Method Time Signature Hepatitis B Nonreactive Nonreactive 05/13/2022 SPECIALTY Surface 4:00 PM CDT CORE/PROT/EN Antigen DO Specimen Anatomical Collection Method / Collection Time Recei iva Time (Source) Location / Volume Laterality Blood STRUCTURE OF RIGHT Venipuncture / 05/13/2022 9:50 10/0 10/2021 9:51 UPPER LIMB / Unknown AM CDT AM CDT Unknown Remington Son MD LAB - BLOOD ORDERABLES Performing Organization Address [facility] Code Phon e Number SPECIALTY CORE/PROT/ENDO [place], [place] [address] Core/Prot/Endo 500 [facility], Room 3-580 (ABNORMAL) CBC with platelets (05/13/2022 9:50 AM CDT) [facility] gist Method Time Signature WBC Count 7.8 [...] City/State/ZIP Code Phon e Number OX LABORATORY [place], [place] [phone] [place] [facility] [address] [place] [address] Lab (no room number, 1st floor of clinic) OX LABORATORY [place], [place] [phone] [facility] [facility] [address] [place] [address] Lab (no room number, 1st floor of clinic) NEISSERIA GONORRHOEA PCR (05/13/2022 9:47 AM CDT) [facility] Method Time Signature Neisseria Negative Negative 05/14/2022 UU IDD gonorrhoeae 1:02 PM CDT LABORATORY Comment: Negative for N. gonorrhoeae rRN A by immigration inspector mediated amplification. A negative result by immigration inspector mediate d amplification does not preclude the [...] Code Phon e Number UU IDD LABORATORY [facility] [place] [address] Diag. Lab 500 [facility], Room D297 CHLAMYDIA TRACHOMATIS PCR (05/13/2022 9:47 AM CDT) [facility] gist Method Time Signature Chlamydia Negative Negative [...] Code Phon e Number UU IDD LABORATORY [facility] [place] [address] Diag. 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
[2022-07-12 21:18] LABS: SARS PCR* Negative SARS-CoV-2 (Negative)
--- OUTSIDE RECORDS SUMMARY | 2022-07-12 21:18 | XMS_ITS | Encounter Summary ---
:1995 Author Organization [facility] Address [address] [place] [id number] Care Team Providers Name Role Phone Hermelinda Reid MD Unavailable Hermelinda Reid MD Unavailable [phone] Lurdes Echeverria MD Unavailable Reason for Visit Auth/Cert Specialty Diagnoses / Procedures Referred By Contact Refer red To Contact wind field manager Diagnoses Pre-eclampsia Pre-eclampsia Rh Labor And Delivery [address] [place], [place] [phone] Phone: Fax: Referral ID Status Reason Start Date Expiration Date Visits Requ ested Visits Authorized [id number] 1 1 Encounter Details Date Type Department Care Team Description 09/20/2021 - [facility] Parker Dunn MD [address] [place], [place] [id number] S/P (Primary Dx); 09/24/2021 Encounter [facility] Lore Son MD [address] [place] [address] Elevated blood sugar [address] [place] [phone] Social History Tobacco Use Types Packs/Day Years Used Date Smoking Tobacco: Never Smokeless Tobacco: Never Alcohol Use Standard Drinks/Week Comments Not Currently 0 (1 standard drink = 0.6 oz pure alcoho l) Sex Assigned at Date Recorded Female 09/11/2021 7:15 AM PRODUCT REPRESENTATIVE COVID-19 Exposure Response Date Recorded In the last month, have you been in contact with No / Unsure 09/20/2021 11:06 AM PRODUCT REPRESENTATIVE someone who was confirmed or suspected to have Coronavirus / COVID-19? documented as of this encounter Last Filed Vital Signs Vital Sign Reading Time Taken Comments Blood Pressure 133/86 09/24/2021 11:00 AM PRODUCT REPRESENTATIVE Pulse 113 09/24/2021 11:00 AM PRODUCT REPRESENTATIVE Temperature 36.8 ??C (98.2 ??F) 09/24/2021 11:00 AM PRODUCT REPRESENTATIVE Respiratory Rate 20 09/24/2021 11:00 AM PRODUCT REPRESENTATIVE Oxygen Saturation 98% 09/23/2021 11:28 AM PRODUCT REPRESENTATIVE Inhaled Oxygen Concentration - - Weight 92.1 kg (203 lb 0.8 oz) 09/24/2021 7:00 AM PRODUCT REPRESENTATIVE Height 160 cm (5' 3) 09/20/2021 2:00 PM PRODUCT REPRESENTATIVE Body Mass Index 35.97 09/20/2021 2:00 PM PRODUCT REPRESENTATIVE documented in this encounter Discharge Summaries Lore Son MD - 09/24/2021 7:[address] [facility] Discharge Summary Beatriz Aparicio Age: [age] year old Date of : 1995 Date of Admission: 09/20/2021 Date of Discharge:: 09/24/2021 Admitting Physician: Lore Son MD Discharge Physician: Lore Son MD Home clinic: [facility] Admission Diagnoses: Intrauterine at 34w4d Pre-eclampsia without [...] medications, labs and imaging. Lore Son MD [facility] UCT REPRESENTATIVE Lois Grant MD - 09/21/2021 4:38 PM [...] She was admitted under the care of [facility] SOFTWARE VERIFICATION ENGINEER for preeclampsia evaluation and received betamethasone. She [...] MD MT: [id number]/[id number] Name: BEATRIZ APARICIO Account: [id number] : 1995 Service Date: 09/21/2021 Document: [id number] UCT REPRESENTATIVE documented in this encounter Discharge Instructions Discharge [...] questions or concerns once you return home. UCT REPRESENTATIVE AttachmentsThe following attachments cannot be sent through Care Everywhere. Gestational Hypertension (Pakistani)documented in this encounter Medications at Time of [...] reviewed with couplet (pateint and spouse) by marine underwriter and any/all questions answered. All discharge medications [...] insulin dose is currently being filled and marine underwriter will bring down to patient. Patient was discharged with blue eclampsia wrist band and educational paperwork. Preeclampsia information also issued at time of discharge and reviewed s/sx. UCT REPRESENTATIVE Nahid Freedman, DO - 09/24/2021 11:38 AM CST [facility] Medicine Progress Note - Hospitalist Service Date of Admission: 09/20/2021 Assessment & Plan Beatriz Aparicio is a 26 year old?female who is currently at 34w4d??with PMH significant for uncontrolled DM2, h/o severe preeclampsia s/p c- section??at 35w6d at [place] in 2017, previous COVID infection (08/24/21), obesity,??and??anxiety [...] Full Code Nahid Freedman DO Hospitalist Service [facility] Securely message with the Voice123 Console (learn more here) Text page via [facility] Paging/Directory Clinically Significant Risk Factors Present on [...] of alicia in clinic Lore Son MD [facility] UCT REPRESENTATIVE Nahid Freedman DO - 09/23/2021 1:23 PM CST [facility] Medicine Progress Note - Hospitalist Service Date of Admission: 09/20/2021 Assessment & Plan Beatriz Aparicio is a 26 year old?female who is currently at 34w4d??with PMH significant for uncontrolled DM2, h/o severe preeclampsia s/p c- section??at 35w6d at [place] in 2017, previous COVID infection (08/24/21), obesity,??and??anxiety [...] Full Code Nahid Freedman DO Hospitalist Service [facility] Securely message with the Voice123 Console (learn more here) Text page via Identified Paging/Directory Clinically Significant Risk Factors Present on [...] = values in this interval not displayed. UCT REPRESENTATIVE Марина Franco LSW - 09/23/2021 1:14 PM [...] ?? Psychosocial Assessment ?? Introduction to NICU Billposter role and scope of practice ?? Discussed [...] was given contact information for WIC in [facility]. SW also provided [facility] Resource guide for families with young children. [...] to next visit. LEIGH De La Vega [facility] 09/23/2021 1:14 PM Jian Hendrix MD - 09/23/2021 10:04 AM CST [facility] Obstetrics Post-Op / Progress Note Assessment and [...] - Jian Dunn MD 09/23/2021 10:05 AM UCT REPRESENTATIVE Nahid Freedman DO - 09/22/2021 3:09 PM CST [facility] Medicine Progress Note - Hospitalist Service Date of Admission: 09/20/2021 Assessment & Plan Beatriz Aparicio is a 26 year old?female who is currently at 34w4d??with PMH significant for uncontrolled DM2, h/o severe preeclampsia s/p c- section??at 35w6d at [place] in 2017, previous COVID infection (08/24/21), obesity,??and??anxiety [...] to primary service. Donovan Catheter: PRESENT, indication: /GI/ORTHOPEDIC CAST SPECIALIST Pelvic Procedure Central Lines: None Cardiac Monitoring: None Code Status: Full Code Nahid Freedman DO Hospitalist Service [facility] Securely message with the Voice123 Console (learn more here) Text page via Identified Paging/Directory Clinically Significant Risk Factors Present on [...] = values in this interval not displayed. UCT REPRESENTATIVE Christianne Cotto MD - 09/22/2021 12:40 PM [...] for specific discharge recommendations. Christianne Cotto MD UCT REPRESENTATIVE Lore Son MD - 09/21/2021 2:28 PM CST Was paged to evaluate patient stat for a presumed eclamptic seizure. I seen and evaluated patient. Rapid response was called prior to my arrival. I was updated on status of patient. Patient is awake, alert and oriented although slow to respond to questions. Informed by staff anesthetist that patient had recurrence of severe headache [...] signed the consent form. Lore Son MD [facility] UCT REPRESENTATIVE Katja Daniels - 09/21/2021 2:23 PM CST [facility] Progress Note L&D 4 Medication Aid visited pt and family per metal bonding helper page rapid response to room. Upon entrance Medication Aid was instructed to take dad of pt's daughter out of the room. Medication Aid learnedfrom dad that pt passed out after eating. Oriented to [facility]. After a few minutes, dad was advised to come inside to hold pt hand. Pt and partner welcomed prayer in the vincenzo of Methodist and Sikhism. Partner indicated that they havebeen attending [facility] and the pt enjoys confucianism. Pt was tired and needing rest. PLAN: Team has been given proration clerk pager #. SHS remains available. Domingo Ling. Medication Aid Specifications Checker Pager: [phone] UCT REPRESENTATIVE Nahid Freedman DO - 09/21/2021 2:20 PM CST [facility] Medicine Progress Note - Hospitalist Service Date of Admission: 09/20/2021 Assessment & Plan Beatriz Aparicio is a 26 year old female who is currently at 34w4d with PMH significantfor uncontrolled DM2, h/o severe preeclampsia s/p at 35w6d at [place] in 2017, previous COVIDinfection (08/24/21), obesity, and [...] Full Code Nahid Freedman DO Hospitalist Service [facility] Securely message with the Voice123 Console (learn more here) Text page via Identified Paging/Directory Clinically Significant Risk Factors Present on [...] = values in this interval not displayed. UCT REPRESENTATIVE Lore Son MD - 09/21/2021 7:31 AM [...] 135, moderate variability, accels present, no decels Morse: q2-7 minutes A/P: 26 year old 34w5d [...] of delivery -- hx of prior at [facility] in 2016 at 35w6d; operative report not [...] preclampsia without severe features Lore Son MD [facility] UCT REPRESENTATIVE Jian Dunn MD - 09/21/2021 12:32 AM CST Called to assess patient due to feeling some pelvic pressure following using BR. Morse with Q2-5 min mild ctx felt by patient. Cervix FT per RN check. Will begin IV and give 250cc IVF bolus and treat ctx with nifedipine 20mg Q6 hrs Mannie Dunn MD UCT REPRESENTATIVE Jian Dunn MD - 09/20/2021 4:39 PM CST Discussed plan of care with Dr. Stafford of [facility]. Agree with admission and course of steroids with Hospitalist assistance in glucose management. Ongoing assessment of PIH symptoms/labs. Timing of delivery to be determined by evolution of PIH symptoms with development of severe featureswarranting delivery and degree of DM control. Dr. Dunn UCT REPRESENTATIVE documented in this encounter H&P Notes Jian Dunn MD - 09/20/2021 2:11 PM CST [facility] Antepartum History and Physical Beatriz Aparicio Age: [age] year old Date of : 1995 Date of Admission: 09/20/2021 Primary care provider: Valeria Carias Chief Complaint: Beatriz Aparicio is a 26 year old female who is female at 34w4d with poorly controlled Type 2 DM and a Hx of pre eclampsia w/ severe features resulting in delivery by C/S at 35w6d at [facility] 5 yrs ago now being admitted for Pre-eclampsia evaluation. She has been receiving care at [facility] with a plan to transfer care to [facility] OB due to complexity of and likelihood of PTD. She reports an elevated BP of 141/81 at [facility] on 09/06 which was followed up with normal PIH labs. She was scheduled for a NOB appt today with Dr. Son. She has been having testing through [facility] and Endocrinology management through [facility]. She called in yesterday with complaints of increased swelling in the lower extremities. She also endorsed a BEAN and stated her blood sugars have been better recently - no longer in the 300s. She was advised to come to L&D at [facility] for evaluation. She presented today. [...] Continuous monitoring for now. Mannie Dunn MD UCT REPRESENTATIVE documented in this encounter Consult Notes Erasmo Antonio MD - 09/21/2021 3:23 PM CST Images from the original note were not included. Neurology Consult Note [facility] [September 21, 2021] Admission Date: 09/20/2021 Hospital Day: 2 Code Status: Full Code Patient: Beatriz Aparicio : 1995 CC: No chief complaint on file. Consult Request: Referring Provider: Lore Son MD Indication for Consultation: Neurology IP Consult: General (non-stroke/non-ICU); Patient to be seen:Routine - within 24 hours; Preecclampsia, possible seizure activity; Hasher Machine Operator may enter orders: Yes; Requesting provider? Hospitalist (if different from attending physician) [CON9] (Order [id number]) Primary Care Provider: Valeria Carias MD HPI: I came to Ms. Aparicio's room for a neurological consultation at the request of Dr. Fernandez. She had been taken to the OR for emergency . I spoke with the coating and embossing unit operator to document my attempt to see the patient. She is now S/P , and I asked if the neurological consultation was still required. I was told that the consult request has been cancelled. Please call if there are further questions. Erasmo Antonio M.D., Ph.D. [facility] UCT REPRESENTATIVE Evelina Long PA-C - 09/20/2021 2:17 PM CSTAssociated Order(s): HOSPITALIST IP CONSULT [facility] Consult Note - Hospitalist Service Date of Admission: 09/20/2021 Consult Requested by: Dr. Dunn Reason for Consult: Diabetes management while on betamethasone Assessment & Plan Beatriz Aparicio is a 26 year old female who is currently at 34w4d with PMH significantfor uncontrolled DM2, h/o severe preeclampsia s/p at 35w6d at [place] in 2017, previous COVIDinfection (08/24/21), obesity, and anxiety who presents for pre-eclampsia evaluation. #Poorly controlled DM2 in : prior to patient was taking Metformin 500 mg BID for 2 years. Since being the patient was switch to NPH and Regular insulin for management. Seen by endocrinology at [facility] during her current but most [...] - betamethasone per OB team - continue SET UP INSPECTOR ASA - diet, DVT prophylaxis, and monitoring per OB team #GERD: resume SET UP INSPECTOR Pepcid The patient's care was discussed with the Attending Physician, Dr. Manuel, Bedside Nurse and Dr. Rivera OB team. Evelina Long PA-C [facility] Securely message with the Voice123 Console (learn more here) Text page via Identified Paging/Directory Clinically Significant Risk Factors Present on [...] recent exposure or clinical presentation suggests COVID-19. [facility] are certified under the Clinical Laboratory Improvement Amendments of 1988 (CLIA-88) as qualified to perform moderate and/or high complexity laboratory testing. Wet preparation Status: Abnormal Specimen: Vagina; Swab Result Value Ref Range Trichomonas Absent Absent Yeast Absent Absent Clue Cells Absent Absent WBCs/high power field 1+ (A) None UCT REPRESENTATIVE Associated attestation - Gurjit Manuel MD - 09/29/2021 4:18 PM PRODUCT REPRESENTATIVE Physician Attestation I, Gurjit Manuel, have reviewed [...] 7 units of Novolog per carb count. [employer] Assistant Manager spoke with patient's who helps manage patient's insulin and is aware of what is being worked on; has now sent over prescription forpatient to have OP pharmacy fill this dose (pen), since patient's own personal insulin pens are in [place], [place] and they are still in NICU visiting . is aware that this dose will be brought down for patient to self administer the 15 units. [employer] Assistant Manager then spoke with OP pharmacy, who is currently working on filling this and working with insurance. UCT REPRESENTATIVE Plan of Care - Deandra Taylor RN - 09/24/2021 1:29 PM CST OP pharmacy will be sending up the needed insulin dose, and marine underwriter will bring down to NICU where (discharged) patient remains. UCT REPRESENTATIVE Plan of Care - Deandra Taylor RN - 09/24/2021 1:29 PM CST [employer] Assistant Manager went down to NICU. Patient signed for filled Rx. Of NPH insulin. Beatriz's spouse, Fahad, administered the 15 units of NPH to Beatriz's right lower abdominal quadrant. Fahad is aware that from now andgoing forward, Beatriz is responsible for letting him know if she is feeling hypo or hyperglycemic. They plan to go home soon at 1800 so Betariz may receive her evening supper dosages. UCT REPRESENTATIVE Result Encounter Note - Valeria Carias MD - 09/24/2021 1:29 PM CST MFM results and recommendations reviewed. Valeria Carias MD UCT REPRESENTATIVE Plan of Care - Deandra Taylor RN - 09/24/2021 11:58 AM CST Both MD and Hospitalist have rounded and gave OK for discharge to home later today. Discharge meds are being dispensed and will be issued as well as how/when to take. MD removed lower abdominal dressing over incision line. [place] are present and patient aware to follow [...] removed; patient tearful with this prior to marine underwriter even beginning to remove. No sliding scale [...] afternoon. Spouse is supportive and at bedside. UCT REPRESENTATIVE Plan of Care - Deandra Taylor RN [...] NICU and will be updated upon return. UCT REPRESENTATIVE Plan of Care - Argentina Barlow RN [...] of pain. Will continue to monitor pt. UCT REPRESENTATIVE Plan of Care - Rufina Mcpherson RN - 09/23/2021 5:34 PM CST Pt up ad dusty and ambulating . Pt is breastpumping. certificate and depression scale done . ROP given with instructions . Insulin given . See mar. Blood sugar pre meal (Lunch) at 1700 is 183 . UCT REPRESENTATIVE Note - Emperatriz Benitez RN - 09/23/2021 2:55 PM CST [employer] Assistant Manager checking in with patient to do education [...] nutritive sucks noted. Encouraged patient to pump. UCT REPRESENTATIVE Plan of Care - Caridad Stout RN [...] over with patient. Plan to discharge tomorrow. UCT REPRESENTATIVE Provider Notification - Any Andrade RN - 09/23/2021 11:28 AM CST 09/23/21 1128 Provider Notification Provider Name/Title Dr. Freedman Method of Notification Phone Notification Reason Lab Results Called MD for clarification on whether to give NPH with blood sugar of 107. Patient eating currently. Orders received to give NPH 15 units as ordered. UCT REPRESENTATIVE Note - Emperatriz Benitez RN - 09/23/2021 11:06 AM CST in to see patient yesterday 09/22/2021 baby in NICU. Discussed pumping every 2-3 hours to help bring in milk supply. Encouraged using hands on pumping and hand expressing. Knows to do STS wheninfant stable. to follow if patent would like help with latching when ready. UCT REPRESENTATIVE Plan of Care - Judie Ochoa RN - 09/23/2021 4:54 AM CST VSS. Denies s/s of PreE. Pain controlled, see MAR. Blood sugars still elevated, see MAR for insulin given. Dressing: c/d/I. Fundal checks and bleeding WNL. Voiding without difficulty; frequent voiding encouraged. +BS. Passing flatus. BM yesterday. Tolerating regular diet. Pumping occasionally. Went tosee in NICU x1. NICU Ipad at bedside. UCT REPRESENTATIVE Plan of Care - Any Ruiz RN [...] with meals, pt has not eaten dinner. UCT REPRESENTATIVE Plan of Care - Allison Núñez RN [...] needed. Will continue with plan of care. UCT REPRESENTATIVE Plan of Care - Hermila Wang RN - 09/21/2021 7:39 PM CST Data: Beatriz Aparicio transferred to [facility] via cart at 1914. Baby in NICU. [...] Response: Patient tolerated transfer and is stable. UCT REPRESENTATIVE L&D Delivery Note - Lore Son MD - 09/21/2021 5:35 PM PRODUCT REPRESENTATIVE Delivery Summary Beatriz Aparicio Age: [age] year old Date of : 1995 Maritza Aparicio-Beatriz [[id number]] Labor Length 3rd Stage (hrs): 0 (min): 2 Delivery/Placenta Date and Time Delivery Date: 09/21/21 Delivery Time: 3:03 PM Placenta Date/Time: 09/21/2021 3:05 PM Delivering clinician: Lore Son MD Other personnel present at delivery: Provider Role Savana Saavedra RN Blouin, Helen, RN Abdullahi, Isahaq Mohamed, MD Lobby Porter Apgars Living status: Living 1 Minute 5 Minute 10 Minute 15 Minute 20 Minute Skin color: 1 1 Heart rate: 2 2 Reflex irritability: 2 2 Muscle tone: 2 2 Respiratory effort: 1 2 Total: 8 9 Apgars assigned by: SAMRA TRIANA APRN, CNP Cord Vessels: 3 Vessels Cord Complications: None [place] Resuscitation Methods: Oxygen, NCPAP, Bag Mask, Oximetry, [...] Category 1 Delivery (Maternal) (Provider to Complete) (003338) Blood Loss Mother: Beatriz Aparicio #[id number] Start of Mother's Information Delivery Blood Loss 09/21/21 1456 - 09/21/21 1735 Total Surgical QBL Blood Loss (mL) Hospital Encounter 1227 mL Total 1227 mL End of Mother's Information Mother: Beatriz Aparicio #[id number] Delivery - Provider to Complete ([id number]) Delivering clinician: Lore Son MD Delivery Type (Choose the 1 that will go to the History): , Low Transverse Priority: STAT Specifics: Repeat Indications for Repeat: Other Other Indications: eclampsia Other personnel: Provider Role Savana Saavedra RN Blouin, Helen, RN Abdullahi, Isahaq Mohamed, MD Lobby Porter Placenta Date/Time: 09/21/2021 3:05 PM Removal: Spontaneous Disposition: Pathology Anesthesia Method: General Presentation and Position Presentation: Vertex Occiput Anterior Lore Son MD UCT REPRESENTATIVE Provider Notification - Xochitl Mishra RN - 09/21/2021 5:34 PM PRODUCT REPRESENTATIVE 09/21/21 609 Provider Notification Provider Name/Title Dr Rhoades Method of Notification Phone Request Evaluate-Remote Notification Reason Lab Results Updated MD that the hospitalist has been following pt for her type 2 DM, pt had stat , justarrived to L&D from PACU, on clear liquid diet, and BG level of 239. gave TORB to check BG levels every 4hrs and to use Novolog sliding scale orders. UCT REPRESENTATIVE Op Note - Lore Son MD - 09/21/2021 4:34 PM CST [facility] Full Operative Note Patient Name:Beatriz Aparicio [...] were correct x 2. Lore Son MD [facility] UCT REPRESENTATIVE Plan of Care - Maria De Jesus [...] Response team, serial BP's started, 1335 OT 174,TALENT DEVELOPMENT DIRECTOR present EKG requested, patient legs shaking, serial [...] in bed being wheeled to OR 7 UCT REPRESENTATIVE Utilization Review - Gilbert Madrigal MD - [...] h/o severe preeclampsia s/p at 35w6d at [place] in 2017, previous COVID infection (08/24/21), obesity, [...] section 70.4. Sincerely, GILBERT MADRIGAL MD System Senior Pl Sql DeveloperSlice Plug Cutter Operator [facility]. UCT REPRESENTATIVE Plan of Care - Maria De Jesus Florian RN - 09/21/2021 1:13 PM CST here with Chick majo food, Blood sugar rechecked, headache better UCT REPRESENTATIVE Plan of Care - Maria De Jesus [...] Significant other to arrive with some food, UCT REPRESENTATIVE Plan of Care - Maria De Jesus Florian RN - 09/21/2021 8:40 AM CST Patient continues to complain of pain in both legs with numbness and tingling and aching from swelling, does not like sequentials on lower calves,US ordered to rule out DVT patient up and into wheelchair down to US UCT REPRESENTATIVE Provider Notification - Radha Lou RN - [...] for pain. Per MD continue to monitor. UCT REPRESENTATIVE Provider Notification - Radha Lou RN - [...] RN for VS. Orders received for tylenol. UCT REPRESENTATIVE Provider Notification - Radha Lou RN - [...] external monitors, and keep IV at TKO. UCT REPRESENTATIVE Provider Notification - Radha Lou RN - 09/21/2021 12:26 AM PRODUCT REPRESENTATIVE 09/21/21 0026 Provider Notification Provider Name/Title Dr Dunn Method of Notification At Bedside MD at bedside. Updated on cx now 2-3 minutes apart palpating mild, recent BP 133/85, 2hr post meal BG 170. Pt c/o pins and needles in legs similar to admission. MD will put in order for nifedipine q 6. UCT REPRESENTATIVE Provider Notification - Karolyn Samayoa RN - 09/21/2021 12:25 AM PRODUCT REPRESENTATIVE 09/21/21 0025 Provider Notification Provider Name/Title Dr. Dunn Method of Notification In Department Primary nurse requested to page . MD in department. Informed that patient is a fingertip and uncomfortable with her contractions. Primary nurse to begin IV fluids. UCT REPRESENTATIVE Provider Notification - Radha Lou RN - 09/21/2021 12:11 AM PRODUCT REPRESENTATIVE 09/21/21 0011 Provider Notification Provider Name/Title Dr Dunn Method of Notification Phone Updated MD of pt c/o vaginal pressure. toco applied and showing cx q 2-5 minutes palpating very mild. tracing moderate with accelerations. Pt does not have an IV. Orders received to start IV [id number] bolus, check SVE and if anything other than closed cervix update md. UCT REPRESENTATIVE Provider Notification - Velia Mares RN - 09/20/2021 6:14 PM CST 09/20/214 Provider Notification Provider Name/Title Pharmacy Method of Notification Phone Called pharmacy again seeking verification of pts evening suppertime insulin. Per pharmacist this cannot be verified until confirmation is received from hospitalist. Verification pending clarification. UCT REPRESENTATIVE Provider Notification - Velia Mares RN - [...] verify/send prior to pt eating evening meal. UCT REPRESENTATIVE Provider Notification - Velia Mares RN - 09/20/2021 5:30 PM CST 09/20/21 5602 Provider Notification Provider Name/Title Dr. Dunn Method of Notification In Department Request Evaluate - Remote Spoke with MD in department about challenges of monitoring today. VORB per MD for reactive NSTQshift unless change in status r/t pre-eclampsia. UCT REPRESENTATIVE Pharmacy-Admission Medication History - Dexter Tatum [facility] - 09/20/2021 4:56 PM PRODUCT REPRESENTATIVE Admission medication history interview status for this patient is complete. See [facility] admission navigator for allergy information, prior to admission medications and immunization status. 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 UCT REPRESENTATIVE Plan of Care - Velia Mares RN [...] at this time. Admitted to room 408. UCT REPRESENTATIVE Provider Notification - Velia Mares RN - 09/20/2021 11:30 AM PRODUCT REPRESENTATIVE 09/20/21 1130 Provider Notification Provider Name/Title Dr. Dunn Method of Notification At Bedside Request Evaluate in Person Dr. Dunn at bedside to evaluate pt and discuss POC. Per discussion, will continue serial Bps Q15 mins, draw pre-e labs, send wet prep d/t vaginal sx.. Will evaluate lab results then determine further POC. Pt verbalized understanding and agreement. UCT REPRESENTATIVE Plan of Care - Velia Mares RN [...] Jian Dunn with updateand for further orders. UCT REPRESENTATIVE Plan of Care - Maria De Jesus Florian RN - 09/20/2021 11:11 AM CST Data: [facility] assessed [facility] the [facility] evaluation Action: EFM/EUM on , serial BP's Response: Orders per Jian Dunn. Patient verbalized understanding of education and verbalized agreement with plan. UCT REPRESENTATIVE documented in this encounter Plan of Treatment Upcoming Encounters Date Type Specialty Care Team Description 07/26/2022 Appointment Radiology. Dion Ramirez MD [address] [place] [address] Liliana Wright MD [address] [facility] [address] [place] [address] 07/26/2022 Office Visit Maternal and Dion Ramirez MD [address] [place], [place] [id number] Medicine Liliana Wright MD [address] [facility] [address] [place], [place] [address] 08/13/2022 Appointment Cardiology Dion Ramirez MD [address] [place], [place] [address] (Wo rk) documented as of this encounter Procedures Procedure Name Priority Date/Time Associated Comments Diagnosis GLUCOSE BY METER Routine 09/24/2021 10:51 Results for this AM PRODUCT REPRESENTATIVE procedure are i n the results section. GLUCOSE BY METER Routine 09/24/2021 2:02 Results for this AM PRODUCT REPRESENTATIVE procedure are i n the results section. GLUCOSE BY METER Routine 09/23/2021 9:46 Results for this PM PRODUCT REPRESENTATIVE procedure are i n the results section. GLUCOSE BY METER Routine 09/23/2021 4:49 Results for this PM PRODUCT REPRESENTATIVE procedure are i n the results section. GLUCOSE BY METER Routine 09/23/2021 11:05 Results for this AM PRODUCT REPRESENTATIVE procedure are i n the results section. GLUCOSE BY METER Routine 09/23/2021 2:24 Results for this AM PRODUCT REPRESENTATIVE procedure are i n the results section. GLUCOSE BY METER Routine 09/22/2021 8:42 Results for this PM PRODUCT REPRESENTATIVE procedure are i n the results section. GLUCOSE BY METER Routine 09/22/2021 2:42 Results for this PM PRODUCT REPRESENTATIVE procedure are i n the results section. COMPREHENSIVE STAT 09/22/2021 10:42 Results fo r this METABOLIC PANEL AM PRODUCT REPRESENTATIVE procedure ar e in the results section. GLUCOSE BY METER Routine 09/22/2021 9:15 Results for this AM PRODUCT REPRESENTATIVE procedure are i n the results section. HEMOGLOBIN Routine 09/22/2021 7:18 Results for this AM PRODUCT REPRESENTATIVE procedure are i n the results section. CBC WITH PLATELETS STAT Add-on 09/22/2021 7:18 Result s for this AM PRODUCT REPRESENTATIVE procedure are i n the results section. GLUCOSE BY METER Routine 09/22/2021 5:54 Results for this AM PRODUCT REPRESENTATIVE procedure are i n the results section. GLUCOSE BY METER Routine 09/22/2021 1:08 Results for this AM PRODUCT REPRESENTATIVE procedure are i n the results section. GLUCOSE BY METER Routine 09/21/2021 9:34 Results for this PM PRODUCT REPRESENTATIVE procedure are i n the results section. CT HEAD W/O CONTRAST Routine 09/21/2021 6:33 Resu lts for this PM PRODUCT REPRESENTATIVE procedure are i n the results section. GLUCOSE BY METER Routine 09/21/2021 5:19 Results for this PM PRODUCT REPRESENTATIVE procedure are i n the results section. PLACENTA PATH ORDER Routine 09/21/2021 3:35 Resul ts for this AND INDICATIONS PM PRODUCT REPRESENTATIVE procedure ar e in the results section. SECTION 09/21/2021 2:19 34 weeks gestation PM PRODUCT REPRESENTATIVE of MAGNESIUM STAT 09/21/2021 2:07 Results for this PM PRODUCT REPRESENTATIVE procedure are i n the results section. CREATININE STAT 09/21/2021 2:05 Results for this PM PRODUCT REPRESENTATIVE procedure are i n the results section. AST STAT 09/21/2021 2:05 Results for this PM PRODUCT REPRESENTATIVE procedure are i n the results section. ALT STAT 09/21/2021 2:05 Results for this PM PRODUCT REPRESENTATIVE procedure are i n the results section. CBC WITH PLATELETS STAT 09/21/2021 2:05 Result s for this PM PRODUCT REPRESENTATIVE procedure are i n the results section. EKG 12-LEAD, TRACING STAT 09/21/2021 1:45 Resu lts for this ONLY PM PRODUCT REPRESENTATIVE procedure are i n the results section. GLUCOSE BY METER Routine 09/21/2021 1:36 Results for this PM PRODUCT REPRESENTATIVE procedure are i n the results section. GLUCOSE BY METER Routine 09/21/2021 1:00 Results for this PM PRODUCT REPRESENTATIVE procedure are i n the results section. GLUCOSE BY METER Routine 09/21/2021 11:47 Results for this AM PRODUCT REPRESENTATIVE procedure are i n the results section. GLUCOSE BY METER Routine 09/21/2021 10:30 Results for this AM PRODUCT REPRESENTATIVE procedure are i n the results section. COMPREHENSIVE STAT 09/21/2021 10:27 Results fo r this METABOLIC PANEL AM PRODUCT REPRESENTATIVE procedure ar e in the results section. CBC WITH PLATELETS STAT 09/21/2021 10:27 Resul ts for this AM PRODUCT REPRESENTATIVE procedure are i n the results section. US LOWER EXTREMITY STAT 09/21/2021 9:24 Result s for this VENOUS DUPLEX AM PRODUCT REPRESENTATIVE procedure are in BILATERAL the results section. GLUCOSE BY METER Routine 09/21/2021 7:30 Results for this AM PRODUCT REPRESENTATIVE procedure are i n the results section. TYPE AND SCREEN, Routine 09/21/2021 6:32 Results for this ADULT AM PRODUCT REPRESENTATIVE procedure are i n the results section. ABO/RH TYPE AND Routine 09/21/2021 6:32 Results f or this SCREEN AM PRODUCT REPRESENTATIVE procedure are i n the results section. COMPREHENSIVE Routine 09/21/2021 6:31 Results for this METABOLIC PANEL AM PRODUCT REPRESENTATIVE procedure ar e in the results section. CBC WITH PLATELETS Routine 09/21/2021 6:31 Result s for this AM PRODUCT REPRESENTATIVE procedure are i n the results section. GLUCOSE BY METER Routine 09/21/2021 2:07 Results for this AM PRODUCT REPRESENTATIVE procedure are i n the results section. GLUCOSE BY METER Routine 09/21/2021 12:09 Results for this AM PRODUCT REPRESENTATIVE procedure are i n the results section. GLUCOSE BY METER Routine 09/20/2021 9:31 Results for this PM PRODUCT REPRESENTATIVE procedure are i n the results section. GLUCOSE BY METER Routine 09/20/2021 6:59 Results for this PM PRODUCT REPRESENTATIVE procedure are i n the results section. GLUCOSE BY METER Routine 09/20/2021 5:45 Results for this PM PRODUCT REPRESENTATIVE procedure are i n the results section. COVID-19 VIRUS STAT 09/20/2021 2:42 Results fo r this (CORONAVIRUS) BY PCR PM PRODUCT REPRESENTATIVE procedu re are in the results section. GROUP B STREP PCR Routine 09/20/2021 2:42 Results for this PM PRODUCT REPRESENTATIVE procedure are i n the results section. MFM BPP SINGLE Routine 09/20/2021 2:01 Results fo r this PM PRODUCT REPRESENTATIVE procedure are i n the results section. WET PREPARATION Routine 09/20/2021 11:39 Results for this AM PRODUCT REPRESENTATIVE procedure are i n the results section. URIC ACID STAT 09/20/2021 11:36 Results for this AM PRODUCT REPRESENTATIVE procedure are i n the results section. PROTEIN RANDOM URINE STAT 09/20/2021 11:36 Res ults for this AM PRODUCT REPRESENTATIVE procedure are i n the results section. COMPREHENSIVE STAT 09/20/2021 11:36 Results fo r this METABOLIC PANEL AM PRODUCT REPRESENTATIVE procedure ar e in the results section. CBC WITH PLATELETS STAT 09/20/2021 11:36 Resul ts for this AM PRODUCT REPRESENTATIVE procedure are i n the results section. GLUCOSE BY METER Routine 09/20/2021 11:17 Results for this AM PRODUCT REPRESENTATIVE procedure are i n the results section. documented in this encounter Results (ABNORMAL) Glucose by meter (09/24/2021 10:51 AM PRODUCT REPRESENTATIVE) P athologist Signature GLUCOSE BY 107 (H) 70 - 99 09/24/2021 [facility] METER POCT mg/dL 10:58 AM PRODUCT REPRESENTATIVE POC Specimen (Source) Anatomical Collection Method Collection Time Re ceived Time Location / / Volume Laterality Blood, Capillary BLOOD SPECIMEN / 09/24/2021 10:51 Unknown AM PRODUCT REPRESENTATIVE 10:58 AM PRODUCT REPRESENTATIVE Lore CHENG - [employer] POCT Performing Organization Address City/[facility]/ZIP Code [place] [address] Care Lab [address] Lab (1st floor, no room number) (ABNORMAL) Glucose by meter (09/24/2021 2:02 AM PRODUCT REPRESENTATIVE) P athologist Signature GLUCOSE BY 178 (H) 70 - 99 09/24/2021 [facility] METER POCT mg/dL 2:09 AM PRODUCT REPRESENTATIVE POC Specimen (Source) Anatomical Collection Method Collection Time Re ceived Time Location / / Volume Laterality Blood, Capillary BLOOD SPECIMEN / 09/24/2021 2:02 09/11 2:09 Unknown AM PRODUCT REPRESENTATIVE AM PRODUCT REPRESENTATIVE Lore CHENG - BEAKER POCT Performing Organization Address City/[facility]/ZIP Code [place] [address] Care Lab [address] Lab (1st floor, no room number) (ABNORMAL) Glucose by meter (09/23/2021 9:46 PM PRODUCT REPRESENTATIVE) P athologist Signature GLUCOSE BY 167 (H) 70 - 99 09/23/2021 [facility] METER POCT mg/dL 9:53 PM PRODUCT REPRESENTATIVE POC Specimen (Source) Anatomical Collection Method Collection Time Re ceived Time Location / / Volume Laterality Blood, Capillary BLOOD SPECIMEN / 09/23/2021 9:46 09/11 9:53 Unknown PM PRODUCT REPRESENTATIVE PM PRODUCT REPRESENTATIVE Lore Son MD LAB - BEAKER POCT Performing Organization Address City/[facility]/ZIP Code [place] [address] Care Lab [address] Lab (1st floor, no room number) (ABNORMAL) Glucose by meter (09/23/2021 4:49 PM PRODUCT REPRESENTATIVE) P athologist Signature GLUCOSE BY 183 (H) 70 - 99 09/23/2021 [facility] METER POCT mg/dL 4:58 PM PRODUCT REPRESENTATIVE POC Comment: Dr/RN Notified Specimen (Source) Anatomical Collection Method Collection Time Re ceived Time Location / / Volume Laterality Blood, Capillary BLOOD SPECIMEN / 09/23/2021 4:49 09/11 4:58 Unknown PM PRODUCT REPRESENTATIVE PM PRODUCT REPRESENTATIVE Lore FERNÁNDEZ POCT Performing Organization Address City/[facility]/ZIP Code [place] [address] Care Lab [address] Lab (1st floor, no room number) (ABNORMAL) Glucose by meter (09/23/2021 11:05 AM PRODUCT REPRESENTATIVE) P athologist Signature GLUCOSE BY 107 (H) 70 - 99 09/23/2021 [facility] METER POCT mg/dL 11:22 AM PRODUCT REPRESENTATIVE POC Specimen (Source) Anatomical Collection Method Collection Time Re ceived Time Location / / Volume Laterality Blood, Capillary BLOOD SPECIMEN / 09/23/2021 11:05 Unknown AM PRODUCT REPRESENTATIVE 11:22 AM PRODUCT REPRESENTATIVE Lore Son MD LAB - BEAKER POCT Performing Organization Address City/[facility]/ZIP Code [place] [address] Care Lab [address] Lab (1st floor, no room number) (ABNORMAL) Glucose by meter (09/23/2021 2:24 AM PRODUCT REPRESENTATIVE) P athologist Signature GLUCOSE BY 198 (H) 70 - 99 09/23/2021 [facility] METER POCT mg/dL 2:31 AM PRODUCT REPRESENTATIVE POC Specimen (Source) Anatomical Collection Method Collection Time Re ceived Time Location / / Volume Laterality Blood, Capillary BLOOD SPECIMEN / 09/23/2021 2:24 0210/2021 2:31 Unknown AM PRODUCT REPRESENTATIVE AM PRODUCT REPRESENTATIVE Lore Son MD LAB - BEAKER POCT Performing Organization Address City/State/ZIP Code [place] [address] Care Lab [address] Lab (1st floor, no room number) (ABNORMAL) Glucose by meter (09/22/2021 8:42 PM PRODUCT REPRESENTATIVE) P athologist Signature GLUCOSE BY 220 (H) 70 - 99 09/22/2021 [facility] METER POCT mg/dL 8:50 PM PRODUCT REPRESENTATIVE POC Specimen (Source) Anatomical Collection Method Collection Time Re ceived Time Location / / Volume Laterality Blood, Capillary BLOOD SPECIMEN / 09/22/2021 8:42 09/11 8:50 Unknown PM PRODUCT REPRESENTATIVE PM PRODUCT REPRESENTATIVE Lore Son MD LAB - BEAKER POCT Performing Organization Address City/[facility]/ZIP Code [place] [address] Care Lab [address] Lab (1st floor, no room number) (ABNORMAL) Glucose by meter (09/22/2021 2:42 PM PRODUCT REPRESENTATIVE) P athologist Signature GLUCOSE BY 220 (H) 70 - 99 09/22/2021 [facility] METER POCT mg/dL 2:50 PM PRODUCT REPRESENTATIVE POC Comment: /RN Notified Specimen (Source) Anatomical Collection Method Collection Time Re ceived Time Location / / Volume Laterality Blood, Capillary BLOOD SPECIMEN / 09/22/2021 2:42 0209/2021 2:50 Unknown PM PRODUCT REPRESENTATIVE PM PRODUCT REPRESENTATIVE Isahaq Gianni Son MD LAB - JOLENE POCT Performing Organization Address City/State/ZIP Code [place] [address] Care Lab [address] Lab (1st floor, no room number) (ABNORMAL) Comprehensive metabolic panel (09/22/2021 10:42 AM PRODUCT REPRESENTATIVE) [facility] Method Time Signature Sodium 136 133 - 144 09/22/2021 LABORATORY mmol/L 11:32 AM PRODUCT REPRESENTATIVE Potassium 4.3 3.4 - 5.3 09/22/2021 LABORATORY mmol/L 11:32 AM PRODUCT REPRESENTATIVE Chloride 107 94 - 109 09/22/2021 LABORATORY mmol/L 11:32 AM PRODUCT REPRESENTATIVE Carbon Dioxide 22 20 - 32 09/22/2021 LABORATORY (CO2) mmol/L 11:32 AM PRODUCT REPRESENTATIVE Anion Gap 7 3 - 14 09/22/2021 LABORATORY mmol/L 11:32 AM PRODUCT REPRESENTATIVE Urea Nitrogen 10 7 - 30 09/22/2021 LABORATORY mg/dL 11:32 AM PRODUCT REPRESENTATIVE Creatinine 0.38 (L) 0.52 - 09/22/2021 LABORATORY 1.04 11:32 AM PRODUCT REPRESENTATIVE mg/dL Calcium 7.1 (L) 8.5 - 09/22/2021 LABORATORY 10.1 11:32 AM PRODUCT REPRESENTATIVE mg/dL Glucose 208 (H) 70 - 99 09/22/2021 LABORATORY mg/dL 11:32 AM PRODUCT REPRESENTATIVE Alkaline 90 40 - 150 09/22/2021 LABORATORY Phosphatase U/L 11:32 AM PRODUCT REPRESENTATIVE AST 17 0 - 45 09/22/2021 LABORATORY U/L 11:32 AM PRODUCT REPRESENTATIVE ALT 16 0 - 50 09/22/2021 LABORATORY U/L 11:32 AM PRODUCT REPRESENTATIVE Protein Total 6.1 (L) 6.8 - 8.8 09/22/2021 [facility] g/dL 11:32 AM PRODUCT REPRESENTATIVE Albumin 2.2 (L) 3.4 - 5.0 09/22/2021 LABORATORY g/dL 11:32 AM PRODUCT REPRESENTATIVE Bilirubin Total 0.1 (L) 0.2 - 1.3 09/22/2021 [facility] mg/dL 11:32 AM PRODUCT REPRESENTATIVE GFR Estimate >90 >60 09/22/2021 LABORATORY mL/min/1. 11:32 AM PRODUCT REPRESENTATIVE 73m2 Comment: Effective July 31, 2021 eGF Rcr in adults is calculated using the 2020 CKD-EPI creatinine equation which includ es age and gender ([employer] et al., [place], DOI: 10.1056/JRGNed6668724) Specimen Anatomical Collection Method / Collection Time Recei iva Time (Source) Location / Volume Laterality Blood TOPOGRAPHY UNKNOWN Venipuncture / 09/22/2021 10:42 07/2022 / Unknown Unknown AM PRODUCT REPRESENTATIVE 11:06 AM PRODUCT REPRESENTATIVE Christianne Cotto MD LAB - BLOOD ORDERABLES Performing Organization Address City/State/ZIP Code Phon [place] [phone] Care Lab [address] Lab (1st floor, no room number) (ABNORMAL) Glucose by meter (09/22/2021 9:15 AM PRODUCT REPRESENTATIVE) P athologist Signature GLUCOSE BY 174 (H) 70 - 99 09/22/2021 [facility] METER POCT mg/dL 9:22 AM PRODUCT REPRESENTATIVE POC Specimen (Source) Anatomical Collection Method Collection Time Re ceived Time Location / / Volume Laterality Blood, Capillary BLOOD SPECIMEN / 09/22/2021 9:15 02/09/2021 9:22 Unknown AM PRODUCT REPRESENTATIVE AM PRODUCT REPRESENTATIVE Lore Son MD LAB - BEAKER POCT Performing Organization Address City/[facility]/ZIP Code Phon e Number [place] [address] Care Lab [address] Lab (1st floor, no room number) (ABNORMAL) CBC with platelets (09/22/2021 7:18 AM PRODUCT REPRESENTATIVE) Patholo gist Method Time Signature WBC Count 15.6 (H) 4.0 - 11.0 09/22/2021 [facility] 10e3/uL 2:46 PM PRODUCT REPRESENTATIVE RBC Count 3.15 (L) 3.80 - 09/22/2021 [facility] 5.20 2:46 PM PRODUCT REPRESENTATIVE 10e6/uL Hemoglobin 7.4 (L) 11.7 - 09/22/2021 [facility] 15.7 g/dL 2:46 PM PRODUCT REPRESENTATIVE Hematocrit 24.2 (L) 35.0 - 09/22/2021 [facility] 47.0 % 2:46 PM PRODUCT REPRESENTATIVE MCV 77 (L) 78 - 100 09/22/2021 [facility] fL 2:46 PM PRODUCT REPRESENTATIVE MCH 23.5 (L) 26.5 - 09/22/2021 [facility] 33.0 pg 2:46 PM PRODUCT REPRESENTATIVE MCHC 30.6 (L) 31.5 - 09/22/2021 [facility] 36.5 g/dL 2:46 PM PRODUCT REPRESENTATIVE RDW 15.3 (H) 10.0 - 09/22/2021 [facility] 15.0 % 2:46 PM PRODUCT REPRESENTATIVE Platelet Count 280 150 - 450 09/22/2021 [facility] 10e3/uL 2:46 PM PRODUCT REPRESENTATIVE Specimen Anatomical Collection Method Collection Time Receive d Time (Source) Location / / Volume Laterality Blood STRUCTURE OF RIGHT Capillary / 09/22/2021 7:18 AM 07/2022 7:39 HAND / Unknown Unknown PRODUCT REPRESENTATIVE AM PRODUCT REPRESENTATIVE Christianne Cotto MD LAB - BLOOD ORDERABLES Performing Organization Address City/[facility]/[place] [address] Care Lab [address] Lab (1st floor, no room number) (ABNORMAL) Hemoglobin (09/22/2021 7:18 AM PRODUCT REPRESENTATIVE) athologist Signature Hemoglobin 7.4 (L) 11.7 - 15.7 09/22/2021 LABORATORY g/dL 7:51 AM PRODUCT REPRESENTATIVE Specimen Anatomical Collection Method Collection Time Receive d Time (Source) Location / / Volume Laterality Blood STRUCTURE OF RIGHT Capillary / 09/22/2021 7:18 AM 07/2022 7:39 HAND / Unknown Unknown PRODUCT REPRESENTATIVE AM PRODUCT REPRESENTATIVE Lore Son MD LAB - BLOOD ORDERABLES Performing Organization Address City/State/[place] [address] Care Lab [address] Lab (1st floor, no room number) (ABNORMAL) Glucose by meter (09/22/2021 5:54 AM PRODUCT REPRESENTATIVE) P athologist Signature GLUCOSE BY 261 (H) 70 - 99 09/22/2021 [facility] METER POCT mg/dL 6:02 AM PRODUCT REPRESENTATIVE POC Specimen (Source) Anatomical Collection Method Collection Time Re ceived Time Location / / Volume Laterality Blood, Capillary BLOOD SPECIMEN / 09/22/2021 5:54 09/11 6:02 Unknown AM PRODUCT REPRESENTATIVE AM PRODUCT REPRESENTATIVE Lore Son MD LAB - BEAKER POCT Performing Organization Address [facility]/ZIP Code [place] [address] Care Lab [address] Lab (1st floor, no room number) (ABNORMAL) Glucose by meter (09/22/2021 1:08 AM PRODUCT REPRESENTATIVE) P athologist Signature GLUCOSE BY 229 (H) 09/22/2021 [facility] METER POCT mg/dL 1:16 AM PRODUCT REPRESENTATIVE POC Comment: /ELVIS Notified Specimen (Source) Anatomical Collection Method Collection Time Re ceived Time Location / / Volume Laterality Blood, Capillary BLOOD SPECIMEN / 09/22/2021 1:08 09/11 1:16 Unknown AM PRODUCT REPRESENTATIVE AM PRODUCT REPRESENTATIVE Lore Son MD LAB - BENAT POCT Performing Organization Address [facility]/[place] [address] Care Lab [address] Lab (1st floor, no room number) (ABNORMAL) Glucose by meter (09/21/2021 9:34 PM PRODUCT REPRESENTATIVE) P athologist Signature GLUCOSE BY 228 (H) 70 - 99 09/21/2021 [facility] METER POCT mg/dL 9:41 PM PRODUCT REPRESENTATIVE POC Comment: /RN Notified Specimen (Source) Anatomical Collection Method Collection Time Re ceived Time Location / / Volume Laterality Blood, Capillary BLOOD SPECIMEN / 09/21/2021 9:34 09/11 9:41 Unknown PM PRODUCT REPRESENTATIVE PM PRODUCT REPRESENTATIVE Lore CHENG - BEAKER POCT Performing Organization Address City/[facility]/ZIP Code [place] [address] Care Lab [address] [facility] Lab (1st floor, no room number) CT Head w/o Contrast (09/21/2021 6:33 PM PRODUCT REPRESENTATIVE) Anatomical Region Laterality Modality Head, SUBRAD CT NEURO, SUBRAD CT NEURO, UMP CT NEURO, Computed Tomography RAD CT Specimen (Source) Anatomical Location Collection Method / Collectio n Time Received Time / Laterality Volume Impressions 09/22/2021 4:33 PM PRODUCT REPRESENTATIVE IMPRESSION: 1. No CT findings of acute intracranial process. 2. Mild generalized brain parenchymal vo lume loss. 3. Suggestion of minimal patchy nonspeci fic hypodensity in the cerebral white matter, as described. As clinically warranted, follow-up MRI c ould be considered for further evaluation, particularly given the patie nt's history of recent seizure-like activity. DEXTER LOWE MD SYSTEM ID: ??[id number] Narrative 09/22/2021 4:[address] SCAN OF THE HEAD WITHOUT CONTRAST [...] seizure-like activity. DEXTER LOWE MD SYSTEM ID: [id number] Mikeseleen Gianni Son MD IMG CT ORDERABLES (ABNORMAL) Glucose by meter (09/21/2021 5:19 PM PRODUCT REPRESENTATIVE) P athologist Signature GLUCOSE BY 239 (H) 70 - 99 09/21/2021 [facility] METER POCT mg/dL 5:28 PM PRODUCT REPRESENTATIVE POC Comment: Dr/RN Notified Specimen (Source) Anatomical Collection Method Collection Time Re ceived Time Location / / Volume Laterality Blood, Capillary BLOOD SPECIMEN / 09/21/2021 5:19 09/11 5:28 Unknown PM PRODUCT REPRESENTATIVE PM PRODUCT REPRESENTATIVE [facility] Performing Organization Address City/State/ZIP Code [place] [address] Care Lab [address] Lab (1st floor, no room number) Placenta Path Order and Indications (PLACENTA) (09/21/2021 3:35 PM PRODUCT REPRESENTATIVE) Component Value Ref Test Analysis Performed At [facility] gist Range Method Time Signature Case Report Surgical Pathology Report ? Case: [id number] ? 09/25/2021 Authorizing Provider: ??Dinah merrill, Lore Archer, Collected: ? 09/21/2021 03:35 PM ? 2:34 PM LABORATOR Y ? MD ? PRODUCT REPRESENTATIVE Ordering Location: ? [facility] ?? Received: ?09/21/2021 04:27 PM ? [facility] ? Pathologist: ? Serg Brady, ? MD ? Specimen: ?Placenta, Thi rd Trimester, Placenta ? Final Placenta: 09/25/2021 SH Electroni osiel Diagnosis - Membranes without diagnostic histologic abnormality. 2:34 PM LABORATORY signed by - Umbilical cord without diagnostic histologic abnormality. PRODUCT REPRESENTATIVE Serg Brady - Placenta disc weight withi n normal limits (between tenth percentile and ninetieth percentile) for 34 weeks gestational age. MD Erasmo on 09/25/2021 at 2:34 PM Clinical [id number] 09/25/2021 Information 2:34 PM LABORATORY PRODUCT REPRESENTATIVE Jf A(A). Placenta, Third Trimester, Placenta: 09/25/2021 [...] nearest placental margin and has 3 ves PRODUCT REPRESENTATIVE sels on cross-section. The f etal membranes are pink-purple and semitransparent. The maternal surface cotyledons are uniform and intact. Upon serial sectioning the placenta parenchyma is red-purple and s pongy throughout. Director Of Physical Security sections are submitted in 3 cassettes. Cassette 1: Umbilical cord and membranes Cassette 2-3: Placenta parenchyma ([facility]) Microscopic A microscopic 09/25/2021 Description examination is 2:34 PM LABORATORY performed. PRODUCT REPRESENTATIVE Performing The technical 09/25/2021 [facility] Labs component of this 2:34 PM LABORATORY testing was PRODUCT REPRESENTATIVE completed at [facility] Laboratory Case Images 09/25/2021 2:34 PM LABORATORY PRODUCT REPRESENTATIVE Specimen Anatomical Collection Method Collection Time Receive d Time (Source) Location / / Volume Laterality Placenta PLACENTAL Non-blood 09/21/2021 3:35 PM 2 4:27 STRUCTURE / Collection / PRODUCT REPRESENTATIVE PM PRODUCT REPRESENTATIVE Unknown Unknown Lore Son MD LAB - BEAKER AP Performing Organization Address City/[facility]/ZIP Code Phon [place] Number [place] [phone] Acute Care Lab [address] 1st floor, Room 20B [place] [address], Care Lab [facility] [address] Lab (1st floor, no room number) Magnesium (09/21/2021 2:07 PM PRODUCT REPRESENTATIVE) athologist Signature Magnesium 1.9 1.6 - 2.3 09/21/2021 RH LABORATORY mg/dL 5:42 PM PRODUCT REPRESENTATIVE Specimen Anatomical Collection Method / Collection Time Recei iva Time (Source) Location / Volume Laterality Blood STRUCTURE OF RIGHT Venipuncture / 09/21/2021 2:07 /08/2021 2:13 UPPER LIMB / Unknown PM PRODUCT REPRESENTATIVE PM PRODUCT REPRESENTATIVE Unknown Lore Son MD LAB - BLOOD ORDERABLES Performing Organization Address City/State/ZIP Code [place] [address] Care Lab [address] Lab (1st floor, no room number) (ABNORMAL) Creatinine (09/21/2021 2:05 PM PRODUCT REPRESENTATIVE) athologist Signature Creatinine 0.36 (L) 0.52 - 09/21/2021 RH LABORATORY 1.04 mg/dL 2:40 PM PRODUCT REPRESENTATIVE GFR Estimate >90 >60 09/21/2021 LABORATORY mL/min/1.7 2:40 PM PRODUCT REPRESENTATIVE 3m2 Comment: Effective July 31, 2021 eGF Rcr in adults is calculated using the 2020 CKD-EPI creatinine equation which includ es age and gender (Angelika et al., [place], DOI: 10.1056/FKIDjn6360033) Specimen Anatomical Collection Method / Collection Time Recei iva Time (Source) Location / Volume Laterality Blood STRUCTURE OF RIGHT Venipuncture / 09/21/2021 2:05 09/11 2:13 UPPER LIMB / Unknown PM PRODUCT REPRESENTATIVE PM PRODUCT REPRESENTATIVE Unknown Lore Son MD LAB - BLOOD ORDERABLES Performing Organization Address City/State/[place] [address] Care Lab [address] Lab (1st floor, no room number) ALT (09/21/2021 2:05 PM PRODUCT REPRESENTATIVE) P athologist Signature ALT 14 0 - 50 U/L 09/21/2021 2:40 RH LABORATORY PM PRODUCT REPRESENTATIVE Specimen Anatomical Collection Method / Collection Time Recei iva Time (Source) Location / Volume Laterality Blood STRUCTURE OF RIGHT Venipuncture / 09/21/2021 2:05 09/11 2:13 UPPER LIMB / Unknown PM PRODUCT REPRESENTATIVE PM PRODUCT REPRESENTATIVE Unknown Lore Son MD LAB - BLOOD ORDERABLES Performing Organization Address City/State/[place] [address] Care Lab [address] Lab (1st floor, no room number) AST (09/21/2021 2:05 PM PRODUCT REPRESENTATIVE) P athologist Signature AST 13 0 - 45 U/L 09/21/2021 2:40 RH LABORATORY PM PRODUCT REPRESENTATIVE Specimen Anatomical Collection Method / Collection Time Recei iva Time (Source) Location / Volume Laterality Blood STRUCTURE OF RIGHT Venipuncture / 09/21/2021 2:05 09/11 2:13 UPPER LIMB / Unknown PM PRODUCT REPRESENTATIVE PM PRODUCT REPRESENTATIVE Unknown Lore Son MD LAB - BLOOD ORDERABLES Performing Organization Address City/State/ZIP Code [place] [phone] Care Lab [address] Lab (1st floor, no room number) (ABNORMAL) CBC with platelets (09/21/2021 2:05 PM PRODUCT REPRESENTATIVE) [facility] gist Method Time Signature WBC Count 15.1 (H) 4.0 - 11.0 09/21/2021 RH LABORATORY 10e3/uL 2:16 PM PRODUCT REPRESENTATIVE RBC Count 4.35 3.80 - 09/21/2021 RH LABORATORY 5.20 2:16 PM PRODUCT REPRESENTATIVE 10e6/uL Hemoglobin 10.1 (L) 11.7 - 09/21/2021 RH LABORATORY 15.7 g/dL 2:16 PM PRODUCT REPRESENTATIVE Hematocrit 33.8 (L) 35.0 - 09/21/2021 RH LABORATORY 47.0 % 2:16 PM PRODUCT REPRESENTATIVE MCV 78 78 - 100 09/21/2021 RH LABORATORY fL 2:16 PM PRODUCT REPRESENTATIVE MCH 23.2 (L) 26.5 - 09/21/2021 RH LABORATORY 33.0 pg 2:16 PM PRODUCT REPRESENTATIVE MCHC 29.9 (L) 31.5 - 09/21/2021 RH LABORATORY 36.5 g/dL 2:16 PM PRODUCT REPRESENTATIVE RDW 15.4 (H) 10.0 - 09/21/2021 RH LABORATORY 15.0 % 2:16 PM PRODUCT REPRESENTATIVE Platelet Count 316 150 - 450 09/21/2021 RH LABORATORY 10e3/uL 2:16 PM PRODUCT REPRESENTATIVE Specimen Anatomical Collection Method / Collection Time Recei iva Time (Source) Location / Volume Laterality Blood STRUCTURE OF RIGHT Venipuncture / 09/21/2021 2:05 /08/2021 2:13 UPPER LIMB / Unknown PM PRODUCT REPRESENTATIVE PM PRODUCT REPRESENTATIVE Unknown Lore Son MD LAB - BLOOD ORDERABLES Performing Organization Address City/State/ZIP Code [place] [phone] Care Lab [address] Lab (1st floor, no room number) EKG 12-lead, tracing only (09/21/2021 1:45 PM PRODUCT REPRESENTATIVE) Component Value Ref Range Test Analysis Performed Pathologis t Method Time At Signature Systolic Blood mmHg RADIOLOGY Pressure RESULTS Diastolic Blood mmHg RADIOLOGY Pressure RESULTS Ventricular Rate 111 BPM RADIOLOGY RESULTS Atrial Rate 111 BPM RADIOLOGY RESULTS AZ Interval 152 ms RADIOLOGY RESULTS QRS Duration 66 ms RADIOLOGY RESULTS QT 312 ms RADIOLOGY RESULTS QTc 424 ms RADIOLOGY RESULTS P [place] 64 degrees RADIOLOGY RESULTS R AXIS 52 degrees RADIOLOGY RESULTS T [place] 46 degrees RADIOLOGY RESULTS Interpretation Sinus tachycardia RADIOLO GY ECG Otherwise normal ECG RESULTS Confirmed by MD AIME, CONCEPCION NICOLE ([id number]), communications editor TULIO BETTS ([id number]) on 10/04/2021 7:58:14 AM Specimen Anatomical Collection Method Collection Time Receive d Time (Source) Location / / Volume Laterality 09/21/2021 1:45 PM 7:58 PRODUCT REPRESENTATIVE AM PRODUCT REPRESENTATIVE Nahid Freedman DO ECG ORDERABLES Performing Organization Address City/State/ZIP Code Phon e Number RADIOLOGY RESULTS (ABNORMAL) Glucose by meter (09/21/2021 1:36 PM PRODUCT REPRESENTATIVE) P athologist Signature GLUCOSE BY 174 (H) 70 - 99 09/21/2021 RH LABORATORY METER POCT mg/dL 1:42 PM PRODUCT REPRESENTATIVE POC Specimen (Source) Anatomical Collection Method Collection Time Re ceived Time Location / / Volume Laterality Blood, Capillary BLOOD SPECIMEN / 09/21/2021 1:36 09/11 1:42 Unknown PM PRODUCT REPRESENTATIVE PM PRODUCT REPRESENTATIVE Lore Son MD LAB - BEAKER POCT Performing Organization Address City/State/ZIP Code Phon e Number [place] [address] Care Lab [address] Lab (1st floor, no room number) (ABNORMAL) Glucose by meter (09/21/2021 1:00 PM PRODUCT REPRESENTATIVE) P athologist Signature GLUCOSE BY 176 (H) 70 - 99 09/21/2021 RH LABORATORY METER POCT mg/dL 1:07 PM PRODUCT REPRESENTATIVE POC Specimen (Source) Anatomical Collection Method Collection Time Re ceived Time Location / / Volume Laterality Blood, Capillary BLOOD SPECIMEN / 09/21/2021 1:00 09/11 1:07 Unknown PM PRODUCT REPRESENTATIVE PM PRODUCT REPRESENTATIVE Lore Son MD LAB - BEAKER POCT Performing Organization Address City/State/ZIP Code Ph[place] [address] Care Lab [address] Lab (1st floor, no room number) (ABNORMAL) Glucose by meter (09/21/2021 11:47 AM PRODUCT REPRESENTATIVE) P athologist Signature GLUCOSE BY 163 (H) 70 - 99 09/21/2021 RH LABORATORY METER POCT mg/dL 11:55 AM PRODUCT REPRESENTATIVE POC Specimen (Source) Anatomical Collection Method Collection Time Re ceived Time Location / / Volume Laterality Blood, Capillary BLOOD SPECIMEN / 09/21/2021 11:47 06/2022 Unknown AM PRODUCT REPRESENTATIVE 11:55 AM PRODUCT REPRESENTATIVE Lore Son MD LAB - BEAKER POCT Performing Organization Address City/[facility]/ZIP Code Phon [place] [address] Care Lab [address] Lab (1st floor, no room number) (ABNORMAL) Glucose by meter (09/21/2021 10:30 AM PRODUCT REPRESENTATIVE) P athologist Signature GLUCOSE BY 163 (H) 70 - 99 09/21/2021 RH LABORATORY METER POCT mg/dL 10:37 AM PRODUCT REPRESENTATIVE POC Specimen (Source) Anatomical Collection Method Collection Time Re ceived Time Location / / Volume Laterality Blood, Capillary BLOOD SPECIMEN / 09/21/2021 10:30 06/2022 Unknown AM PRODUCT REPRESENTATIVE 10:37 AM PRODUCT REPRESENTATIVE Lore Son MD LAB - BEAKER POCT Performing Organization Address City/State/ZIP Code [place] [address] Care Lab [address] Lab (1st floor, no room number) (ABNORMAL) Comprehensive metabolic panel (09/21/2021 10:27 AM PRODUCT REPRESENTATIVE) [facility] Method Time Signature Sodium 136 133 - 144 09/21/2021 LABORATORY mmol/L 11:06 AM PRODUCT REPRESENTATIVE Potassium 3.8 3.4 - 5.3 09/21/2021 LABORATORY mmol/L 11:06 AM PRODUCT REPRESENTATIVE Chloride 108 94 - 109 09/21/2021 LABORATORY mmol/L 11:06 AM PRODUCT REPRESENTATIVE Carbon Dioxide 19 (L) 20 - 32 09/21/2021 LABORATORY (CO2) mmol/L 11:06 AM PRODUCT REPRESENTATIVE Anion Gap 9 3 - 14 09/21/2021 LABORATORY mmol/L 11:06 AM PRODUCT REPRESENTATIVE Urea Nitrogen 11 7 - 30 09/21/2021 LABORATORY mg/dL 11:06 AM PRODUCT REPRESENTATIVE Creatinine 0.38 (L) 0.52 - 09/21/2021 LABORATORY 1.04 11:06 AM PRODUCT REPRESENTATIVE mg/dL Calcium 8.7 8.5 - 09/21/2021 LABORATORY 10.1 11:06 AM PRODUCT REPRESENTATIVE mg/dL Glucose 189 (H) 70 - 99 09/21/2021 LABORATORY mg/dL 11:06 AM PRODUCT REPRESENTATIVE Alkaline 102 40 - 150 09/21/2021 LABORATORY Phosphatase U/L 11:06 AM PRODUCT REPRESENTATIVE AST 12 0 - 45 09/21/2021 LABORATORY U/L 11:06 AM PRODUCT REPRESENTATIVE ALT 17 0 - 50 09/21/2021 LABORATORY U/L 11:06 AM PRODUCT REPRESENTATIVE Protein Total 6.6 (L) 6.8 - 8.8 09/21/2021 LABORATORY g/dL 11:06 AM PRODUCT REPRESENTATIVE Albumin 2.2 (L) 3.4 - 5.0 09/21/2021 LABORATORY g/dL 11:06 AM PRODUCT REPRESENTATIVE Bilirubin Total 0.3 0.2 - 1.3 09/21/2021 LABORATORY mg/dL 11:06 AM PRODUCT REPRESENTATIVE GFR Estimate >90 >60 09/21/2021 LABORATORY mL/min/1. 11:06 AM PRODUCT REPRESENTATIVE 73m2 Comment: Effective July 31, 2021 eGF Rcr in adults is calculated using the 2020 CKD-EPI creatinine equation which includ es age and gender (Angelika et al., NEJM, DOI: 10.1056/GUVAdk5490149) Specimen Anatomical Collection Method / Collection Time Recei iva Time (Source) Location / Volume Laterality Blood STRUCTURE OF RIGHT Venipuncture / 09/21/2021 10:27 06/2022 UPPER LIMB / Unknown AM PRODUCT REPRESENTATIVE 10:34 AM PRODUCT REPRESENTATIVE Unknown Lore Son MD LAB - BLOOD ORDERABLES Performing Organization Address City/State/ZIP Code [place] [address] Care Lab [address] Lab (1st floor, no room number) (ABNORMAL) CBC with platelets (09/21/2021 10:27 AM PRODUCT REPRESENTATIVE) [facility] gist Method Time Signature WBC Count 12.1 (H) 4.0 - 11.0 09/21/2021 RH LABORATORY 10e3/uL 10:39 AM PRODUCT REPRESENTATIVE RBC Count 4.18 3.80 - 09/21/2021 RH LABORATORY 5.20 10:39 AM PRODUCT REPRESENTATIVE 10e6/uL Hemoglobin 9.8 (L) 11.7 - 09/21/2021 RH LABORATORY 15.7 g/dL 10:39 AM PRODUCT REPRESENTATIVE Hematocrit 32.5 (L) 35.0 - 09/21/2021 RH LABORATORY 47.0 % 10:39 AM PRODUCT REPRESENTATIVE MCV 78 78 - 100 09/21/2021 RH LABORATORY fL 10:39 AM PRODUCT REPRESENTATIVE MCH 23.4 (L) 26.5 - 09/21/2021 RH LABORATORY 33.0 pg 10:39 AM PRODUCT REPRESENTATIVE MCHC 30.2 (L) 31.5 - 09/21/2021 RH LABORATORY 36.5 g/dL 10:39 AM PRODUCT REPRESENTATIVE RDW 15.3 (H) 10.0 - 09/21/2021 RH LABORATORY 15.0 % 10:39 AM PRODUCT REPRESENTATIVE Platelet Count 279 150 - 450 09/21/2021 RH LABORATORY 10e3/uL 10:39 AM PRODUCT REPRESENTATIVE Specimen Anatomical Collection Method / Collection Time Recei iva Time (Source) Location / Volume Laterality Blood STRUCTURE OF RIGHT Venipuncture / 09/21/2021 10:27 06/2022 UPPER LIMB / Unknown AM PRODUCT REPRESENTATIVE 10:34 AM PRODUCT REPRESENTATIVE Unknown Lore Son MD LAB - BLOOD ORDERABLES Performing Organization Address City/State/ZIP Code [place] [phone] Care Lab [address] Lab (1st floor, no room number) US Lower Extremity Venous Duplex Bilateral (09/21/2021 9:24 AM PRODUCT REPRESENTATIVE) Anatomical Region Laterality Modality Vascular, Thigh, Leg Ultrasound Specimen (Source) Anatomical Location Collection Method / Collectio n Time Received Time / Laterality Volume Impressions 09/21/2021 9:50 AM PRODUCT REPRESENTATIVE IMPRESSION: No deep vein thrombosis in either lower extremity. ?? HAILEY KAM DO Narrative 09/21/2021 9:50 AM PRODUCT REPRESENTATIVE VENOUS ULTRASOUND BILATERAL LEG(S) ??09/21/2021 9:24 AM [...] (ABNORMAL) Glucose by meter (09/21/2021 7:30 AM PRODUCT REPRESENTATIVE) P athologist Signature GLUCOSE BY 131 (H) 70 - 99 09/21/2021 RH LABORATORY METER POCT mg/dL 7:37 AM PRODUCT REPRESENTATIVE POC Specimen (Source) Anatomical Collection Method Collection Time Re ceived Time Location / / Volume Laterality Blood, Capillary BLOOD SPECIMEN / 09/21/2021 7:30 09/11 7:37 Unknown AM PRODUCT REPRESENTATIVE AM PRODUCT REPRESENTATIVE Lore CHENG - JOLENE POCT Performing Organization Address City/State/ZIP Code Phon e Number [place] [address] Care Lab [address] [facility] Lab (1st floor, no room number) Adult Type and Screen (09/21/2021 6:32 AM PRODUCT REPRESENTATIVE) [facility] Method Time Signature ABO/RH(D) O POS 09/21/2021 RH BLOOD 6:30 AM PRODUCT REPRESENTATIVE BANK Antibody Negative Negative 09/21/2021 RH BLOOD Screen 6:30 AM PRODUCT REPRESENTATIVE BANK SPECIMEN [id number] 09/21/2021 RH BLOOD EXPIRATION 6:30 AM PRODUCT REPRESENTATIVE BANK DATE Specimen Anatomical Collection Method / Collection Time Recei iva Time (Source) Location / Volume Laterality Blood STRUCTURE OF LEFT Venipuncture / 09/21/2021 6:32 09/21 7:02 UPPER LIMB / Unknown AM PRODUCT REPRESENTATIVE AM PRODUCT REPRESENTATIVE Unknown Jian Dunn MD LAB - BLOOD BANK TEST ORDER Performing Organization Address City/State/ZIP Code Phon e Number RH BLOOD BANK [address] [place] [address] (ABNORMAL) Comprehensive metabolic panel (09/21/2021 6:31 AM PRODUCT REPRESENTATIVE) [facility] Method Time Signature Sodium 135 133 - 144 09/21/2021 LABORATORY mmol/L 7:32 AM PRODUCT REPRESENTATIVE Potassium 4.1 3.4 - 5.3 09/21/2021 LABORATORY mmol/L 7:32 AM PRODUCT REPRESENTATIVE Chloride 109 94 - 109 09/21/2021 LABORATORY mmol/L 7:32 AM PRODUCT REPRESENTATIVE Carbon Dioxide 18 (L) 20 - 32 09/21/2021 LABORATORY (CO2) mmol/L 7:32 AM PRODUCT REPRESENTATIVE Anion Gap 8 3 - 14 09/21/2021 LABORATORY mmol/L 7:32 AM PRODUCT REPRESENTATIVE Urea Nitrogen 9 7 - 30 09/21/2021 LABORATORY mg/dL 7:32 AM PRODUCT REPRESENTATIVE Creatinine 0.35 (L) 0.52 - 09/21/2021 LABORATORY 1.04 7:32 AM PRODUCT REPRESENTATIVE mg/dL Calcium 8.7 8.5 - 09/21/2021 LABORATORY 10.1 7:32 AM PRODUCT REPRESENTATIVE mg/dL Glucose 143 (H) 70 - 99 09/21/2021 LABORATORY mg/dL 7:32 AM PRODUCT REPRESENTATIVE Alkaline 104 40 - 150 09/21/2021 LABORATORY Phosphatase U/L 7:32 AM PRODUCT REPRESENTATIVE AST 10 0 - 45 09/21/2021 LABORATORY U/L 7:32 AM PRODUCT REPRESENTATIVE ALT 15 0 - 50 09/21/2021 RH LABORATORY U/L 7:32 AM PRODUCT REPRESENTATIVE Protein Total 6.8 6.8 - 8.8 09/21/2021 LABORATORY g/dL 7:32 AM PRODUCT REPRESENTATIVE Albumin 2.4 (L) 3.4 - 5.0 09/21/2021 RH LABORATORY g/dL 7:32 AM PRODUCT REPRESENTATIVE Bilirubin Total 0.2 0.2 - 1.3 09/21/2021 LABORATORY mg/dL 7:32 AM PRODUCT REPRESENTATIVE GFR Estimate >90 >60 09/21/2021 LABORATORY mL/min/1. 7:32 AM PRODUCT REPRESENTATIVE 73m2 Comment: Effective July 31, 2021 eGF Rcr in adults is calculated using the 2020 CKD-EPI creatinine equation which includ es age and gender (Angelika et al., [place], DOI: 10.1056/FCGFsl6244471) Specimen Anatomical Collection Method / Collection Time Recei iva Time (Source) Location / Volume Laterality Blood STRUCTURE OF LEFT Venipuncture / 09/21/2021 6:31 09/21 7:02 UPPER LIMB / Unknown AM PRODUCT REPRESENTATIVE AM PRODUCT REPRESENTATIVE Unknown Jian Dunn MD LAB - BLOOD ORDERABLES Performing Organization Address City/State/ZIP Code [place] [phone] Care Lab [address] Lab (1st floor, no room number) (ABNORMAL) CBC with platelets (09/21/2021 6:31 AM PRODUCT REPRESENTATIVE) [facility] gist Method Time Signature WBC Count 13.8 (H) 4.0 - 11.0 09/21/2021 RH LABORATORY 10e3/uL 7:15 AM PRODUCT REPRESENTATIVE RBC Count 4.41 3.80 - 09/21/2021 RH LABORATORY 5.20 7:15 AM PRODUCT REPRESENTATIVE 10e6/uL Hemoglobin 10.1 (L) 11.7 - 09/21/2021 RH LABORATORY 15.7 g/dL 7:15 AM PRODUCT REPRESENTATIVE Hematocrit 34.4 (L) 35.0 - 09/21/2021 RH LABORATORY 47.0 % 7:15 AM PRODUCT REPRESENTATIVE MCV 78 78 - 100 09/21/2021 RH LABORATORY fL 7:15 AM PRODUCT REPRESENTATIVE MCH 22.9 (L) 26.5 - 09/21/2021 RH LABORATORY 33.0 pg 7:15 AM PRODUCT REPRESENTATIVE MCHC 29.4 (L) 31.5 - 09/21/2021 RH LABORATORY 36.5 g/dL 7:15 AM PRODUCT REPRESENTATIVE RDW 15.2 (H) 10.0 - 09/21/2021 RH LABORATORY 15.0 % 7:15 AM PRODUCT REPRESENTATIVE Platelet Count 299 150 - 450 09/21/2021 RH LABORATORY 10e3/uL 7:15 AM PRODUCT REPRESENTATIVE Specimen Anatomical Collection Method / Collection Time Recei iva Time (Source) Location / Volume Laterality Blood STRUCTURE OF LEFT Venipuncture / 09/21/2021 6:31 09/21 7:14 UPPER LIMB / Unknown AM PRODUCT REPRESENTATIVE AM PRODUCT REPRESENTATIVE Unknown Jian Dunn MD LAB - BLOOD ORDERABLES Performing Organization Address City/[facility]/ZIP Code [place] [address] Care Lab [address] Lab (1st floor, no room number) (ABNORMAL) Glucose by meter (09/21/2021 2:07 AM PRODUCT REPRESENTATIVE) P athologist Signature GLUCOSE BY 173 (H) 70 - 99 09/21/2021 RH LABORATORY METER POCT mg/dL 2:13 AM PRODUCT REPRESENTATIVE POC Specimen (Source) Anatomical Collection Method Collection Time Re ceived Time Location / / Volume Laterality Blood, Capillary BLOOD SPECIMEN / 09/21/2021 2:07 02/08/2021 2:13 Unknown AM PRODUCT REPRESENTATIVE AM PRODUCT REPRESENTATIVE Jian Dunn MD LAB - BEAKER POCT Performing Organization Address City/State/ZIP Code Phon e Number [place] [address] Care Lab [address] Lab (1st floor, no room number) (ABNORMAL) Glucose by meter (09/21/2021 12:09 AM PRODUCT REPRESENTATIVE) P athologist Signature GLUCOSE BY 170 (H) 70 - 99 09/21/2021 RH LABORATORY METER POCT mg/dL 12:16 AM PRODUCT REPRESENTATIVE POC Specimen (Source) Anatomical Collection Method Collection Time Re ceived Time Location / / Volume Laterality Blood, Capillary BLOOD SPECIMEN / 09/21/2021 12:09 06/2022 Unknown AM PRODUCT REPRESENTATIVE 12:16 AM PRODUCT REPRESENTATIVE Jian CHENG - BENAT POCT Performing Organization Address City/[facility]/ZIP Code [place] [address] Care Lab [address] Lab (1st floor, no room number) (ABNORMAL) Glucose by meter (09/20/2021 9:31 PM PRODUCT REPRESENTATIVE) athologist Signature GLUCOSE BY 169 (H) 70 - 99 09/20/2021 LABORATORY METER POCT mg/dL 9:37 PM PRODUCT REPRESENTATIVE POC Specimen (Source) Anatomical Collection Method Collection Time Re ceived Time Location / / Volume Laterality Blood, Capillary BLOOD SPECIMEN / 09/20/2021 9:31 02 9:37 Unknown PM PRODUCT REPRESENTATIVE PM PRODUCT REPRESENTATIVE Jian FERNÁNDEZ POCT Performing Organization Address City/[facility]/ZIP Code [place] [address] Care Lab [address] Lab (1st floor, no room number) (ABNORMAL) Glucose by meter (09/20/2021 6:59 PM PRODUCT REPRESENTATIVE) athologist Signature GLUCOSE BY 175 (H) 70 - 99 09/20/2021 LABORATORY METER POCT mg/dL 7:06 PM PRODUCT REPRESENTATIVE POC Specimen (Source) Anatomical Collection Method Collection Time Re ceived Time Location / / Volume Laterality Blood, Capillary BLOOD SPECIMEN / 09/20/2021 6:59 09/11 7:06 Unknown PM PRODUCT REPRESENTATIVE PM PRODUCT REPRESENTATIVE Jian FERNÁNDEZ POCT Performing Organization Address City/[facility]/ZIP Code [place] [address] Care Lab [address] Lab (1st floor, no room number) (ABNORMAL) Glucose by meter (09/20/2021 5:45 PM PRODUCT REPRESENTATIVE) P athologist Signature GLUCOSE BY 157 (H) 70 - 99 09/20/2021 LABORATORY METER POCT mg/dL 5:52 PM PRODUCT REPRESENTATIVE POC Specimen (Source) Anatomical Collection Method Collection Time Re ceived Time Location / / Volume Laterality Blood, Capillary BLOOD SPECIMEN / 09/20/2021 5:45 09/11 5:52 Unknown PM PRODUCT REPRESENTATIVE PM PRODUCT REPRESENTATIVE Jian Dnun MD LAB - [employer] [facility] POCT Performing Organization Address City/State/ZIP Code Phon e [place] [address] Care Lab [address] Lab (1st floor, no room number) Asymptomatic COVID-19 Virus (Coronavirus) by PCR Nasopharyngeal (09/20/2021 2:42 PM PRODUCT REPRESENTATIVE) Analysis Performed At Patho logist Time Signature SARS CoV2 PCR Negative Negative 09/20/2021 LABORATORY 3:14 PM PRODUCT REPRESENTATIVE Comment: NEGATIVE: SARS-CoV-2 (COVID-19) RNA not detected, presumed negative. Specimen Anatomical Location / Collection Method Collection Michael e Received Time (Source) Laterality / Volume Swab NASOPHARYNGEAL Non-blood 09/20/2021 2:42 09/20/2021 2:48 STRUCTURE / Unknown Collection / PM PRODUCT REPRESENTATIVE PM PRODUCT REPRESENTATIVE Unknown Narrative LABORATORY - 09/20/2021 3:14 PM PRODUCT REPRESENTATIVE Testing was performed using the amanuel?? SARS-CoV-2 [...] exposure or clinical presentation sugges ts COVID-19. ??[facility] [employer] are certified under the Clinical Laborat ory Improvement Amendments of 1988 (CLIA-88) as qualified to perform moderate and/or high complexity laboratory testing. Jian Dunn MD LAB - MICRO GENERAL ORDERABL ES Performing Organization Address City/State/ZIP Code Phon [place] [address] Care Lab [address] [facility] Lab (1st floor, no room number) Group B strep PCR (09/20/2021 2:42 PM PRODUCT REPRESENTATIVE) [facility] Group B Strep Negative Negative 09/21/2021 [facility] PCR 6:10 PM PRODUCT REPRESENTATIVE LABORATORY Comment: Presumed negative for Streptoco ccus agalactiae (Group B Streptococcus) or the number of organisms may be below the limit of detection of the assay. Penicillin, amoxicillin, or No 09/21/2021 6 :10 PM PRODUCT REPRESENTATIVE [facility] cephalosporin allergy? Specimen Anatomical Location Collection Method Collection Time Received Time (Source) / Laterality / Volume Swab STRUCTURE OF Non-blood 09/20/2021 2:42 09/20/2021 2 :48 RECTOVAGINAL SEPTUM Collection / PM PRODUCT REPRESENTATIVE PM PRODUCT REPRESENTATIVE / Unknown Unknown Narrative [facility] - 09/21/2021 6:[address] The Cepheid Xpert GBS LB Assay, performe d on the [employer]OCK[employer]?? [employer] Systems, is a qualitative in vitro [...] or monitor treatment for GBS infections. The CepAwareness Cardid Xpert GBS LB Ass ay is intended for use in hospital, reference or state laboratory settings. The device is not intended for modxn-nr-zyoy use. Jian Dunn MD LAB - MICRO GENERAL ORDERABL ES Performing Organization Address City/State/ZIP Code Phon e Number [facility]ORAT[facility] [place] [phone] Diag. Lab [address] [facility] [facility] LABORATORY [facility] Infectious [place], [place] [phone] Diseases Diagnostic [id number], [facility] Lab (IDDL) [address] [facility] [place], [address] Maternal BPP Single (09/20/2021 2:01 PM PRODUCT REPRESENTATIVE) Anatomical Region Laterality Modality Ultrasound Specimen (Source) Anatomical Collection Method Collection Time Re ceived Time Location / / Volume Laterality 09/20/2021 1:34 PM PRODUCT REPRESENTATIVE Impressions 09/20/2021 5:41 PM PRODUCT REPRESENTATIVE IMPRESSION 1) Wolfe intrauterine at 3 4w 4d gestational age. 2) The BPP is reassuring. 3) The amniotic fluid volume appeared no rmal. Narrative 09/20/2021 5:41 PM PRODUCT REPRESENTATIVE BPP Pat. Name: BEATRIZ PAARICIO Study Date: 09/20 1:34pm Pat. NO: [id number] Referring ??: IDALMIS CARIAS Site: [facility] Consultant: Kylah Condon RDMS : 1995 Age: 26 [...] Pat. Name:Tamera APARICIO Date:09/20/19 1:34pm Pat. NO: [id number] :VALERIA CABALLERO Site:[place]idgesSonographer:Rachel Saavedra :1995Age:26 INDICATION Poorly [...] volume appeared no rmal. [facility] (ABNORMAL) Wet preparation (09/20/2021 11:39 AM PRODUCT REPRESENTATIVE) Analysis Performed At Patho logist Time Signature Trichomonas Absent Absent L[facility] 09/20/2021 LABORATORY 12:08 PM PRODUCT REPRESENTATIVE Yeast Absent Absent [facility] 09/20/2021 LABORATORY 12:08 PM PRODUCT REPRESENTATIVE Clue Cells Absent Absent [facility] 09/20/2021 LABORATORY 12:08 PM PRODUCT REPRESENTATIVE WBCs/high power 1+ (A) None [facility] 09/20/2021 LABORATORY field 12:08 PM PRODUCT REPRESENTATIVE Specimen Anatomical Collection Method Collection Time Receive d Time (Source) Location / / Volume Laterality Swab VAGINAL STRUCTURE Non-blood 09/20/2021 11:39 2021 / Unknown Collection / AM PRODUCT REPRESENTATIVE 11:42 AM PRODUCT REPRESENTATIVE Unknown Jian Dunn MD LAB - MICRO GENERAL ORDERABL ES Performing Organization Address City/State/ZIP Code [place] [address] [facility] [address] Lab (1st floor, no room number) (ABNORMAL) Protein random urine (09/20/2021 11:36 AM PRODUCT REPRESENTATIVE) P athologist Signature Total Protein 0.79 g/L 09/20/2021 LABORATORY Random Urine 12:09 PM PRODUCT REPRESENTATIVE g/L Comment: The reference range has not bee n established for total protein in random urine samples. ??The result should be in tegrated into the clinical context for interpretation. Total Protein Urine 0.51 (H) 0.00 - 0.20 g/g 09/20/2021 12: 09 PM LABORATORY g/gr Creatinine Cr PRODUCT REPRESENTATIVE Creatinine Urine mg/dL 156 mg/dL 09/20/2021 12:09 PM LABORATORY PRODUCT REPRESENTATIVE Specimen Anatomical Collection Method Collection Time Receive d Time (Source) Location / / Volume Laterality Urine MID-STREAM URINE Non-blood 09/20/2021 11:36 022 SPECIMEN / Unknown Collection / AM PRODUCT REPRESENTATIVE 11:42 AM PRODUCT REPRESENTATIVE Unknown Jian Dunn MD LAB - URINE ORDERABLES Performing Organization Address City/[facility]/ZIP [facility] [place] [phone] Care [facility] [address] Lab (1st floor, no room number) Uric acid (09/20/2021 11:36 AM PRODUCT REPRESENTATIVE) P athologist Signature Uric Acid 3.4 2.6 - 6.0 09/20/2021 [facility] LABORATORY mg/dL 11:59 AM PRODUCT REPRESENTATIVE Specimen Anatomical Collection Method / Collection Time Recei iva Time (Source) Location / Volume Laterality Blood STRUCTURE OF RIGHT Venipuncture / 09/20/2021 11:36 05/2022 UPPER LIMB / Unknown AM PRODUCT REPRESENTATIVE 11:39 AM PRODUCT REPRESENTATIVE Unknown Jian Dunn MD LAB - BLOOD ORDERABLES Performing Organization Address City/[facility]/ZIP [facility] [place] [address] [facility] [address] Lab (1st floor, no room number) (ABNORMAL) Comprehensive metabolic panel (09/20/2021 11:36 AM PRODUCT REPRESENTATIVE) Patholo gist Method Time Signature Sodium 138 133 - 144 09/20/2021 LABORATORY mmol/L 11:59 AM PRODUCT REPRESENTATIVE Potassium 4.0 3.4 - 5.3 09/20/2021 [facility] LABORATORY mmol/L 11:59 AM PRODUCT REPRESENTATIVE Chloride 111 (H) 94 - 109 09/20/2021 [facility] LABORATORY mmol/L 11:59 AM PRODUCT REPRESENTATIVE Carbon Dioxide 22 20 - 32 09/20/2021 LABORATORY (CO2) mmol/L 11:59 AM PRODUCT REPRESENTATIVE Anion Gap 5 3 - 14 09/20/2021 [facility] LABORATORY mmol/L 11:59 AM PRODUCT REPRESENTATIVE Urea Nitrogen 10 7 - 30 09/20/2021 RH LABORATORY mg/dL 11:59 AM PRODUCT REPRESENTATIVE Creatinine 0.40 (L) 0.52 - 09/20/2021 LABORATORY 1.04 11:59 AM PRODUCT REPRESENTATIVE mg/dL Calcium 8.7 8.5 - 09/20/2021 LABORATORY 10.1 11:59 AM PRODUCT REPRESENTATIVE mg/dL Glucose 114 (H) 70 - 99 09/20/2021 LABORATORY mg/dL 11:59 AM PRODUCT REPRESENTATIVE Alkaline 102 40 - 150 09/20/2021 LABORATORY Phosphatase U/L 11:59 AM PRODUCT REPRESENTATIVE AST 13 0 - 45 09/20/2021 LABORATORY U/L 11:59 AM PRODUCT REPRESENTATIVE ALT 14 0 - 50 09/20/2021 LABORATORY U/L 11:59 AM PRODUCT REPRESENTATIVE Protein Total 6.4 (L) 6.8 - 8.8 09/20/2021 LABORATORY g/dL 11:59 AM PRODUCT REPRESENTATIVE Albumin 2.1 (L) 3.4 - 5.0 09/20/2021 LABORATORY g/dL 11:59 AM PRODUCT REPRESENTATIVE Bilirubin Total 0.1 (L) 0.2 - 1.3 09/20/2021 LABORATORY mg/dL 11:59 AM PRODUCT REPRESENTATIVE GFR Estimate >90 >60 09/20/2021 LABORATORY mL/min/1. 11:59 AM PRODUCT REPRESENTATIVE 73m2 Comment: Effective July 31, 2021 eGF Rcr in adults is calculated using the 2020 CKD-EPI creatinine equation which includ es age and gender (Angelika et al., NEJM, DOI: 10.1056/ZGRQyb0949063) Specimen Anatomical Collection Method / Collection Time Recei iva Time (Source) Location / Volume Laterality Blood STRUCTURE OF RIGHT Venipuncture / 09/20/2021 11:36 05/2022 UPPER LIMB / Unknown AM PRODUCT REPRESENTATIVE 11:39 AM PRODUCT REPRESENTATIVE Unknown Jian Dunn MD LAB - BLOOD ORDERABLES Performing Organization Address City/State/ZIP Code [place] [address] Care Lab [address] Lab (1st floor, no room number) (ABNORMAL) CBC with platelets (09/20/2021 11:36 AM PRODUCT REPRESENTATIVE) [facility] Method Time Signature WBC Count 8.6 4.0 - 11.0 09/20/2021 LABORATORY 10e3/uL 11:41 AM PRODUCT REPRESENTATIVE RBC Count 4.20 3.80 - 09/20/2021 [facility] LABORATORY 5.20 11:41 AM PRODUCT REPRESENTATIVE 10e6/uL Hemoglobin 9.7 (L) 11.7 - 09/20/2021 [facility] LABORATORY 15.7 g/dL 11:41 AM PRODUCT REPRESENTATIVE Hematocrit 32.8 (L) 35.0 - 09/20/2021 [facility] LABORATORY 47.0 % 11:41 AM PRODUCT REPRESENTATIVE MCV 78 78 - 100 09/20/2021 [facility] LABORATORY fL 11:41 AM PRODUCT REPRESENTATIVE MCH 23.1 (L) 26.5 - 09/20/2021 [facility] LABORATORY 33.0 pg 11:41 AM PRODUCT REPRESENTATIVE MCHC 29.6 (L) 31.5 - 09/20/2021 [facility] LABORATORY 36.5 g/dL 11:41 AM PRODUCT REPRESENTATIVE RDW 15.2 (H) 10.0 - 09/20/2021 RH LABORATORY 15.0 % 11:41 AM PRODUCT REPRESENTATIVE Platelet Count 234 150 - 450 09/20/2021 [facility] LABORATORY 10e3/uL 11:41 AM PRODUCT REPRESENTATIVE Specimen Anatomical Collection Method / Collection Time Recei iva Time (Source) Location / Volume Laterality Blood STRUCTURE OF RIGHT Venipuncture / 09/20/2021 11:36 05/2022 UPPER LIMB / Unknown AM PRODUCT REPRESENTATIVE 11:39 AM PRODUCT REPRESENTATIVE Unknown Jian Dunn MD LAB - BLOOD ORDERABLES Performing Organization Address City/State/[place] [phone] Care Lab [address] Lab (1st floor, no room number) (ABNORMAL) Glucose by meter (09/20/2021 11:17 AM PRODUCT REPRESENTATIVE) P athologist Signature GLUCOSE BY 122 (H) 70 - 99 09/20/2021 LABORATORY METER POCT mg/dL 11:24 AM PRODUCT REPRESENTATIVE POC Specimen (Source) Anatomical Collection Method Collection Time Re ceived Time Location / / Volume Laterality Blood, Capillary BLOOD SPECIMEN / 09/20/2021 11:17 05/2022 Unknown AM PRODUCT REPRESENTATIVE 11:24 AM PRODUCT REPRESENTATIVE Jian Dunn MD LAB - BEAKER POCT Performing Organization Address City/State/ZIP Code Phon [place] [address] Care Lab [address] [facility] Lab (1st floor, no room number) [...] (TYLENOL) tablet 975 Given 09/21/2021 4:22 AM PRODUCT REPRESENTATIVE 975 mg mg 975 mg, Oral, EVERY 6 HOURS PRN, mild pain, fever, Starting on Fri09/21/21 at 0418, Maximum acetaminophen dose from all sources = 75 mg/kg/day not to exceed 4 grams/day. acetaminophen (TYLENOL) tablet 975 mg Given 09/24/2021 11:29 AM PRODUCT REPRESENTATIVE 975 mg 975 mg, Oral, EVERY 6 HOURS, First dose on Fri09/21/21 at 1730, Maximum acetaminophen dose from all sources = 75 mg/kg/day not to exceed 4 grams/day. Given 09/24/2021 2:32 AM PRODUCT REPRESENTATIVE 975 mg Given 09/23/2021 7:13 PM PRODUCT REPRESENTATIVE 975 mg aspirin EC tablet 81 mg Given 09/21/2021 9:17 AM PRODUCT REPRESENTATIVE 81 mg 81 mg, Oral, DAILY, First dose on Fri09/21/21 at 0900, DO NOT CRUSH. betamethasone acet & sod Given 09/21/2021 1:57 PM PRODUCT REPRESENTATIVE 12 mg Right Anterior Thigh phos (CELESTONE) injection 12 mg 12 mg, Intramuscular, EVERY 24 HOURS, First dose on Dilcia 09/20/21 at 1230, For 2 doses, OB Preadmission Given 09/20/2021 1:31 PM PRODUCT REPRESENTATIVE 12 mg calcium gluconate 10 % injection [...] injection 25 mg Given 09/21/2021 1:53 PM PRODUCT REPRESENTATIVE 25 mg 25 mg, Intravenous, EVERY 6 HOURS PRN, itching, Starting on Fri09/21/21 at 1352 famotidine (PEPCID) tablet 10 mg Given 09/21/2021 9:17 AM PRODUCT REPRESENTATIVE 10 mg 10 mg, Oral, 2 TIMES DAILY, First dose on Dilcia 09/20/21 at 2100 Given 09/20/2021 9:28 PM PRODUCT REPRESENTATIVE 10 mg fentaNYL (PF) (SUBLIMAZE) injection 25 [...] tablet 800 mg Given 09/24/2021 11:29 AM PRODUCT REPRESENTATIVE 800 mg 800 mg, Oral, EVERY 6 HOURS, First dose on Fri09/22/21 at 1700, Give with food. Given 09/24/2021 2:32 AM PRODUCT REPRESENTATIVE 800 mg Given 09/23/2021 7:13 PM PRODUCT REPRESENTATIVE 800 mg insulin aspart (NovoLOG) injection (RAPID Given 09/21/2021 1:04 PM PRODUCT REPRESENTATIVE 1 Units ACTING) 1-7 Units, Subcutaneous, 3 [...] start of meal. Given 09/20/2021 7:00 PM PRODUCT REPRESENTATIVE 1 Units insulin aspart (NovoLOG) injection (RAPID Given 09/22/2021 6:00 AM PRODUCT REPRESENTATIVE 3 Units ACTING) 1-6 Units, Subcutaneous, EVERY [...] start of meal. Given 09/22/2021 1:12 AM PRODUCT REPRESENTATIVE 2 Units Given 09/21/2021 9:47 PM PRODUCT REPRESENTATIVE 2 Units insulin aspart (NovoLOG) injection (RAPID Given 09/23/2021 9:54 PM PRODUCT REPRESENTATIVE 1 Units ACTING) 1-7 Units, Subcutaneous, 3 [...] start of meal. Given 09/23/2021 5:10 PM PRODUCT REPRESENTATIVE 1 Units Given 09/22/2021 8:58 PM PRODUCT REPRESENTATIVE 2 Units insulin aspart (NovoLOG) injection (RAPI [...] injection (RAPID Given 09/24/2021 1 2:57 PM PRODUCT REPRESENTATIVE 7 Units ACTING) Subcutaneous, 3 TIMES DAILY BEFORE MEALS, First dose on 09/22/21 at 1700, Dose = 1 units per 15 grams of carbohydate. If given at mealtime, administer within 30 minutes of start of meal. Given 09/23/2021 9:54 PM PRODUCT REPRESENTATIVE 5 Units Given 09/23/2021 5:11 PM PRODUCT REPRESENTATIVE 5 Units insulin NPH injection 10 Units Given 09/22/2021 8:56 PM PRODUCT REPRESENTATIVE 10 Units 10 Units, Subcutaneous, 2 TIMES DAILY BEFORE MEALS, First dose on 09/22/21 at 0830 Given 09/22/2021 9:19 AM PRODUCT REPRESENTATIVE 10 Units insulin NPH injection 10 Units Given 09/23/2021 5:13 PM PRODUCT REPRESENTATIVE 10 Units 10 Units, Subcutaneous, DAILY WITH SUPPER, First dose on Fri09/23/21 at 1700 insulin NPH injection 15 Units Given 09/23/2021 11:30 AM PRODUCT REPRESENTATIVE 15 Units 15 Units, Subcutaneous, 2 TIMES DAILY BEFORE MEALS, First dose (after last modification) on Fri09/23/21 at 0900 insulin NPH injection 15 Units 15 Units, Subcutaneous, EVERY MORNING BE FORE BREAKFAST, First dose on Fri09/24/21 at 0730 insulin NPH injection 32 Units Given 09/20/2021 9:34 PM PRODUCT REPRESENTATIVE 32 Units 32 Units, Subcutaneous, AT BEDTIME, First dose on Fri09/20/21 at 2200 insulin NPH injection 40 Units Given 09/21/2021 9:52 AM PRODUCT REPRESENTATIVE 40 Units 40 Units, Subcutaneous, EVERY MORNING, First dose on Fri09/21/21 at 0900 insulin regular injection 22 Units Given 09/21/2021 9:45 AM PRODUCT REPRESENTATIVE 22 Units 22 Units, Subcutaneous, EVERY 24 HOURS, First dose (after last modification) on Fri09/21/21 at 0900, Give with breakfast If for prandial use, must be administered 30 min before meal or immediately after. insulin regular injection 30 Units Given 09/20/2021 7:02 PM PRODUCT REPRESENTATIVE 30 Units 30 Units, Subcutaneous, DAILY WITH SUPPER, First dose (after last modification) on Fri09/20/21 at 1900, If for prandial use, must be administered 30 min before meal or immediately after. ketorolac (TORADOL) injection 30 mg Given 09/22/2021 9:29 AM PRODUCT REPRESENTATIVE 30 mg 30 mg, Intravenous, EVERY 6 [...] to 2 minutes. Given 09/22/2021 3:49 AM PRODUCT REPRESENTATIVE 30 mg Given 09/21/2021 9:46 PM PRODUCT REPRESENTATIVE 30 mg labetalol (NORMODYNE/TRANDATE) 5 MG/ML i njection Starting on Fri09/21/21 at 1347, For 1 dose, Drew Wangn: cabinet override PROTECT FROM LIGHT. labetalol (NORMODYNE/TRANDATE) algorithm -medication instruction CONTINUOUS PRN, Starting on Fri09/21/21 at 1344, Until Fri09/24/21 at 1529 labetalol (NORMODYNE/TRANDATE) injection 10 mg Given 09/21/2021 4:40 PM PRODUCT REPRESENTATIVE 10 mg 10 mg, Intravenous, EVERY 15 MIN PRN, other, for Systolic Blood Pressure greater than 160 mmHg while Heart Rate greater than 60 bpm, Starting on Fri09/21/21 at 1632, For 2 doses, For PACU USE ONLY. PROTECT FROM LIGHT., PACU labetalol (NORMODYNE/TRANDATE) injection 20-80 Given 0 09/21/2021 1:50 PM PRODUCT REPRESENTATIVE 20 mg mg 20-80 mg, Intravenous, EVERY [...] 250 mL New Bag 09/21/2021 12:36 AM PRODUCT REPRESENTATIVE 250 mLs Intravenous, 250 mL, ONCE, On Fri09/21/21 at 0100, For 1 dose lactated ringers infusion Rate/Dose Change 09/21/2021 2:00 AM PRODUCT REPRESENTATIVE 10 mL/hr at 10 mL/hr, Intravenous, CONTINUOUS, Starting on Fri09/21/21 at 0200, Until Fri09/21/21 at 1721 lactated ringers infusion New Bag 09/22/2021 1:06 AM PRODUCT REPRESENTATIVE 75 mL/hr 75 mL/hr at 10-125 mL/hr, Intravenous, CONTINUOUS, Titrate lactated ringers rate to obtain total IV intake of 125 mL/hour, Starting on Fri09/21/21 at 1400, Until Fri09/24/21 at 1529 lactated ringers infusion Restarted 09/21/2021 1:35 PM PRODUCT REPRESENTATIVE 200 mL/hr at 200 mL/hr, Intravenous, CONTINUOUS, [...] mL sterile water New Bag 1:58 PM PRODUCT REPRESENTATIVE 4 g (premade) 4 g, Intravenous, Administer [...] sulfate infusion New Bag 09/22/2021 9:18 AM PRODUCT REPRESENTATIVE 2 g/hr 50 mL/hr 2 g/hr (50 [...] pre-term labor. New Bag 09/21/2021 2:36 PM PRODUCT REPRESENTATIVE 2 g/hr 50 mL/hr magnesium sulfate injection [...] tablet 10 mg Given 09/21/2021 1:02 PM PRODUCT REPRESENTATIVE 10 mg 10 mg, Oral, 4 TIMES DAILY BEFORE MEALS & NIGHTLY, First dose on Fri09/21/21 at 0830, Recommend to take before meals. Avoid use if patient has full bowel obstruction or perforation. Avoid use if patient has full bowel obstruction or perforation. Given 09/21/2021 9:18 AM PRODUCT REPRESENTATIVE 10 mg metoclopramide (REGLAN) tablet 10 mg [...] capsule 20 mg Given 09/21/2021 6:27 AM PRODUCT REPRESENTATIVE 20 mg 20 mg, Oral, EVERY 6 [...] 50 mmHg., Antepartum Given 09/21/2021 12:38 AM PRODUCT REPRESENTATIVE 20 mg ondansetron (ZOFRAN) injection 4 mg [...] tablet 5-10 mg Given 09/24/2021 11:30 AM PRODUCT REPRESENTATIVE 5 mg 5-10 mg, Oral, EVERY 4 HOURS PRN, other, pain control or improvement in physical function. Hold dose for analgesic side effects., Starting on Fri09/21/21 at 1720, Notify provider to assess for uncontrolled pain or analgesic side effects. Hold while on DRIVEMATIC MACHINE OPERATOR or with regular IV opioid dosing. Maximum total is 60 mg in 24 hours. Given 09/23/2021 9:52 PM PRODUCT REPRESENTATIVE 5 mg Given 09/21/2021 9:45 PM PRODUCT REPRESENTATIVE 5 mg prochlorperazine (COMPAZINE) injection 1 0 [...] for loose stools. Given 09/21/2021 9:46 PM PRODUCT REPRESENTATIVE 1 tablet senna-docusate (SENOKOT-S/PERICOLACE) 8. 6-50 MG per tablet 2 tablet 2 tablet, Oral, 2 TIMES DAILY, First dos e on Fri09/21/21 at 2100, Hold for loose stools. Preferred agent for constipation related to opioids. Hold for loose stools. sodium chloride (PF) 0.9% PF flush 3 mL Given 09/21/2021 9:35 AM PRODUCT REPRESENTATIVE 3 mLs 3 mL, Intracatheter, EVERY 8 HOURS, First dose on Fri09/21/21 at 1000 sodium chloride (PF) 0.9% PF flush 3 mL Given 09/24/2021 2:20 AM PRODUCT REPRESENTATIVE 3 mLs 3 mL, Intracatheter, EVERY 8 HOURS, First dose on Fri09/21/21 at 1730, to lock peripheral IV dormant line Given 09/22/2021 3:11 PM PRODUCT REPRESENTATIVE 3 mLs Given 09/22/2021 9:25 AM PRODUCT REPRESENTATIVE 3 mLs sodium chloride 0.9% (bottle) irrigation Given 09/21/2021 3:40 PM PRODUCT REPRESENTATIVE 750 mLs PRN, Starting on Fri09/21/21 at 1540, Anesthesia Intra-op documented in this encounter Active and Recently Administered Medications Times are shown in PRODUCT REPRESENTATIVE. Scheduled Medication Order 09/22/2021 09/23/2021 09/24/2021 acetaminophen [...] Rufina Mcpherson RN)2154 (Given - Provider: Rufina Mcpherosn RN - Comment: dinner ot 167) 1206 [...] mcg 200 mcg, Intramuscular, EVERY 2 HOURS [place] N, ONLY for uterine atony with significant [...] or analgesic side effects. Hold while on DRIVEMATIC MACHINE OPERATOR or with regular IV opioid dosing. Maximum [...] after each naloxone dose. Consider transfer to [facility] if patient respiratory parameters hav e not [...] provider.
documented in this encounter Care Teams Survey Research Center Director Relationship Specialty Start Date End Date MD Jeanette Endocrinology, 08/29/21 MD Hermelinda Diabetes, and [address] [facility] Metabolism [address] [place], [place] [phone] Radha Reid Endocrinology 09/09/21 MD Hermelinda Provider [address] [facility] [address] [facility] [address] [place], [place] [phone] Lurdes Echeverria MD Assigned OBGYN Provider 09/23/21 10/06/[address] [facility] [address] [place], [place] [address] documented as of this encounter
--- OUTSIDE RECORDS SUMMARY | 2022-07-12 21:19 | XMS_ITS | Encounter Summary ---
:1995 Author Organization [facility] Address [address] [place] [id number] Care Team Providers Name Role Phone Hermelinda Reid MD Unavailable [phone] Hermelinda Reid MD Unavailable [phone] Reason for Visit Auth/Cert Specialty Diagnoses / Procedures Referred By Contact Refer red To Contact cable repairer Diagnoses Pre-eclampsia Pre-eclampsia [facility] [address] [place], [place] [address] Phone: Fax: Referral ID Status Reason Start Date Expiration Date Visits Requ ested Visits Authorized [id number] 1 1 Encounter Details Date Type Department Care Team Description 09/21/2021 Anesthesia Event M [facility] Laz Verma MD [facility] ANESTHESIA [id number] [place], [place] [address] PeriOp Services Jax Abraham MD [facility] ANESTHESIA [address] [place], [place] [address] [address] [place] [address] Anesthesia Record Procedure Summary Procedure Name Responsible Anesthesia Start Anesthesia Stop Time Anesthesiologist Time SECTION Laz Banerjee MD 09/21/21 1439 1614 (Abdomen) Events Date Time Event Comment 09/21/2021 1421 BUS ATTENDANT Ready for Procedure 1439 An Start 1439 [...] by Boston Bauman APRN CRNA on Sep [facility] 2021 4:14 PM Name Total midazolam 1 [...] 1602 b y 09/21/21; Placement MicaelaBoston miller, SCIENCE INTERN Boston Bauman, Time: 1454; Mask BUS ATTENDANT SCIENCE INTERN BUS ATTENDANT Ventilation: 0; Induction Type: Intravenous, RSI; Ease of Intubation: Easy; Technique: Direct laryngoscopy; Tube Size: 7 mm; VL Blade Size: Mohamud 2; Grade View: 1; Adjucts: Stylet; Placement Person: BUS ATTENDANT; Attempts: 1; Depth: 22 cm documented in this encounter Social History Tobacco Use Types Packs/Day Years Used Date Smoking Tobacco: Never Smokeless Tobacco: Never Alcohol Use Standard Drinks/Week Comments Not Currently 0 (1 standard drink = 0.6 oz pure alcoho l) Sex Assigned at Date Recorded Female 09/11/2021 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 Questions answered and patient/sales donor recruitment representative(s) expressed understanding. - Discussed: - Discussed with: [...] high aspiration risk Jose Eduardo Mcpherson MD DER documented in this encounter Miscellaneous Notes Anesthesia Care Transfer Note - Boston Bauman APRN BUS ATTENDANT - 09/21/2021 4:15 PM CST Patient: Valery [...] APRN CRNA September 21, 2021 4:15 PM DER documented in this encounter Plan of Treatment Upcoming Encounters Date Type Specialty Care Team Description 07/26/2022 Appointment Radiology. Dion Ramirez MD [address] [place], [place] [phone] Liliana Wright MD [address] [address] 07/26/2022 Office Visit Maternal and Dion Ramirez MD [address] [place], [place] [address] Medicine Liliana Wright MD [address] [phone] 08/13/2022 Appointment Cardiology Dion Ramirez MD [address] [place], [place] [address] (Wo rk) documented as of this encounter Visit Diagnoses Not on filedocumented in this encounter Administered Medications Inactive Administered Medications - up to 3 most recent administrations Medication Order MAR Action Action Date Dose Rate Site carboprost (HEMABATE) injection Given 09/21/2021 3:09 PM SCALDER 250 mcg Intramuscular, PRN, Starting on Fri09/21/21 at 1509, Anesthesia Intra-op ceFAZolin (ANCEF) 1 g vial to attach to NS 100 Given 022 2:59 PM SCALDER 2 g ml bag for ADULT or 50 ml bag for PEDS Routine, Intravenous, PRN, Starting on Fri09/21/21 at 1459, Anesthesia Intra-op dexamethasone (DECADRON) injection Given 09/21/2021 2:44 PM SCALDER 4 mg Intravenous, PRN, Administer over 1 Minutes, Starting on Fri09/21/21 at 1444, Anesthesia Intra-op fentaNYL (PF) (SUBLIMAZE) injection Given 09/21/2021 3:04 PM SCALDER 100 mcg Intravenous, PRN, Administer over 3-5 Minutes, Starting on Fri09/21/21 at 1504, Anesthesia Intra-op glycopyrrolate (ROBINUL) injection Given 09/21/2021 3:34 PM SCALDER 0.6 mg Intravenous, PRN, Administer over 1-2 Minutes, Starting on Fri09/21/21 at 1534, Anesthesia Intra-op HYDROmorphone (DILAUDID) injection Given 09/21/2021 3:39 PM SCALDER 1 mg Intravenous, PRN, Starting on Fri09/21/21 at 1504, Anesthesia Intra-op Given 09/21/2021 3:33 PM SCALDER 1 mg Given 09/21/2021 3:04 PM SCALDER 1 mg lactated ringers infusion New Bag 09/21/2021 3:39 PM SCALDER Intravenous, CONTINUOUS PRN, Anesthesia Intra-op, Starting on Fri09/21/21 at 1421, Until Fri09/21/21 at 1615 New Bag 09/21/2021 2:21 PM SCALDER midazolam (VERSED) injection Given 09/21/2021 3:04 PM SCALDER 2 mg Intravenous, Administer over 2 Minutes, PRN, Starting on Fri09/21/21 at 1504, Anesthesia Intra-op neostigmine (PROSTIGMINE) injection Given 09/21/2021 3:34 PM SCALDER 3 mg Intravenous, PRN, Starting on Fri09/21/21 at 1534, Anesthesia Intra-op ondansetron (ZOFRAN) injection Given 09/21/2021 2:44 PM SCALDER 4 mg Intravenous, PRN, Administer over 2-5 Minutes, Starting on Fri09/21/21 at 1444, Anesthesia Intra-op oxytocin (PITOCIN) 30 units in 500 mL 0.9% Given 09/21/2021 4:03 PM SCALDER 400 mLs NaCl infusion Intravenous, PRN, Starting on Fri09/21/21 at 1603, Anesthesia Intra-op propofol (DIPRIVAN) injection 10 mg/mL v ial Given 09/21/2021 2:53 PM SCALDER 200 mg Intravenous, PRN, Starting on Fri09/21/21 at 1453, Anesthesia Intra-op rocuronium injection Given 09/21/2021 3:02 PM SCALDER 30 mg Intravenous, PRN, Starting on Fri09/21/21 at 1502, Anesthesia Intra-op succinylcholine (ANECTINE) injection Given 09/21/2021 2:53 PM SCALDER 100 mg Intravenous, PRN, Starting on Fri09/21/21 at 1453, Anesthesia Intra-op documented in this encounter Care Teams Music Leader Relationship Specialty Start Date End Date MD Jeanette Endocrinology, 08/29/21 MD Hermelinda Diabetes, and [address] [facility] [address] [phone] Radha Reid Endocrinology 09/09/21 MD Hermelinda Provider [address] [id number] documented as of this encounter
--- OUTSIDE RECORDS SUMMARY | 2022-07-12 21:19 | XMS_ITS | Encounter Summary ---
:1995 Author Organization [place] Address [address] [facility] [place] [address] Care Team Providers Name Role Phone Hermelinda Reid MD Unavailable [phone] Reason for Visit Reason Comments Ultrasound Comp-DM2 poorly controlled Encounter Details Date Type Department Care Team Description 09/06/2021 PRE VISIT [facility], Ultrasound (Comp-DM2 Maternal Medicine ELVIS Dove poor ly controlled) [place] [address] [facility] [address] [place] [address] Social History Tobacco Use Types Packs/Day Years Used Date Smoking Tobacco: Never Smokeless Tobacco: Never Alcohol Use Standard Drinks/Week Comments Not Currently 0 (1 standard drink = 0.6 oz pure alcoho l) Sex Assigned at Date Recorded Female 09/11/2021 7:15 AM 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 documented as of this encounter Plan of Treatment Upcoming Encounters Date Type Specialty Care Team Description 07/26/2022 Appointment Radiology. Dion Ramirez MD [address] [facility] 400 [place], [place] [address] Liliana Wright MD 420 [facility] 395 [place], [place] [address] 07/26/2022 Office Visit Maternal and Dion Ramirez MD [address] [facility] [address] [place], [place] [address] Medicine Liliana Wright MD [address] [place] [address] [facility] 395 [place], [place] [address] 08/13/2022 Appointment Cardiology Dion Ramirez MD [address] [place], [place] [address] (Wo rk) documented as of this encounter Visit Diagnoses Not on filedocumented in this encounter Care Teams Vending Machine Host/Hostess Relationship Specialty Start Date End Date Hermelinda Reid MD Endocrinology, Diabetes, MD and Metabolism 420 [facility] 101 [place], [place] [address] documented as of this encounter
--- OUTSIDE RECORDS SUMMARY | 2022-07-12 21:19 | XMS_ITS | Encounter Summary ---
:1995 Author Organization [place] Address [address] [place] [address] Care Team Providers Name Role Phone Hermelinda Reid MD Unavailable [phone] Hermelinda Reid MD Unavailable [phone] Encounter Details Date Type Department Care Team Description 09/20/2021 Travel Social History Tobacco Use Types Packs/Day Years Used Date Smoking Tobacco: Never Smokeless Tobacco: Never Alcohol Use Standard Drinks/Week Comments Not Currently 0 (1 standard drink = 0.6 oz pure alcoho l) Sex Assigned at Date Recorded Female 09/11/2021 7:15 AM TOURIST HOME KEEPER COVID-19 Exposure Response Date Recorded In the last month, have you been in contact with No / Unsure 09/20/2021 11:06 AM TOURIST HOME KEEPER someone who was confirmed or suspected to have Coronavirus / COVID-19? documented as of this encounter Plan of Treatment Upcoming Encounters Date Type Specialty Care Team Description 07/26/2022 Appointment Radiology. Dion Ramirez MD [address] [place], [place] [address] Liliana Wright MD 420 [facility] 395 [place], [place] [address] 07/26/2022 Office Visit Maternal and Dion Ramirez MD [address] [place] [address] [place], [place] [address] Medicine Liliana Wright MD [address] [facility] [address] [facility] [address] [place], [place] [address] 08/13/2022 Appointment Cardiology Dion Ramirez MD [address] [place], [place] [address] (Wo rk) documented as of this encounter Visit Diagnoses Not on filedocumented in this encounter Care Teams Grommet Man Relationship Specialty Start Date End Date MD Jeanette Endocrinology, 08/29/21 MD Hermelinda Diabetes, and [address] [place] [address] [facility] Metabolism 101 [place] [address] Radha Reid Endocrinology 09/09/21 MD Hermelinda Provider 420 [facility] 101 [place], [place] [address] documented as of this encounter
--- OUTSIDE RECORDS SUMMARY | 2022-07-12 21:19 | XMS_ITS | Encounter Summary ---
:1995 Author Organization [place] Address [address] [place] [address] Care Team Providers Name Role Phone Hermelinda Reid MD Unavailable [phone] Reason for Referral Diagnostic Imaging Ultrasound (Routine) - Pending Review Specialty Diagnoses / Procedures Referred By Contact Refer red To Contact Diagnoses related condition, antepartum Teresa, Procedures [facility] MD Freya [facility] [address] [place] [address] Referral ID Status Reason Start Date Expiration Date Visits V isits Requested Authorized [id number] Pending 09/02/2021 09/02/2022 1 1 Review NING AND WASHING EQUIPMENT OPERATOR Encounter Details Date Type Department Care Team Description 09/02/2021 Transcribe Orders [facility] Teresa, P regnancy related Maternal MD Freya condition, Medicine Center [address] [facility] antepartum (Primary [place] [address] Dx) [address] [place], [place] [address] [address] [place], [place] [phone] [address] (Work) [phone] Social History Tobacco Use Types Packs/Day Years Used Date Smoking Tobacco: Never Smokeless Tobacco: Never Alcohol Use Standard Drinks/Week Comments Not Currently 0 (1 standard drink = 0.6 oz pure alcoho l) Sex Assigned at Date Recorded Female 09/11/2021 7:15 AM CLEANING AND WASHING EQUIPMENT OPERATOR COVID-19 Exposure Response Date Recorded In the last month, have you been in contact with No / Unsure 08/26/2021 1:50 PM CLEANING AND WASHING EQUIPMENT OPERATOR someone who was confirmed or suspected to have Coronavirus / COVID-19? documented as of this encounter Plan of Treatment Upcoming Encounters Date Type Specialty Care Team Description 07/26/2022 Appointment Radiology. Dion Ramirez MD [address] [place] [address] [place] [address] Liliana Wright MD 420 [facility] 395 [place], [place] [phone] 07/26/2022 Office Visit Maternal and Dion Ramirez MD [address] [place] [address] [place] [address] Medicine Liliana Wright MD [address] [phone] 08/13/2022 Appointment Cardiology Dion Ramirez MD [address] [place] [address] (Wo rk) documented as of this encounter Results M US Comprehensive Single (09/14/2021 9:43 AM CLEANING AND WASHING EQUIPMENT OPERATOR) Anatomical Region Laterality Modality Ultrasound Specimen (Source) Anatomical Collection Method Collection Time Re ceived Time Location / / Volume Laterality 09/14/2021 8:47 AM CLEANING AND WASHING EQUIPMENT OPERATOR Impressions 09/14/2021 2:34 PM CLEANING AND WASHING EQUIPMENT OPERATOR IMPRESSION REVISED REPORT 1) Wolfe intrauterine at [...] BPP is reassuring. Narrative 09/14/2021 2:34 PM CLEANING AND WASHING EQUIPMENT OPERATOR Comprehensive Pat. Name: BEATRIZ APARICIO Study Date: 09/14 8:47am Pat. NO: [id number] Referring ??MD: IDALM[facility] Site: [facility] Counter Worker: Kylah Condon RDMS : 1995 Age: [...] 5 lb 7 ?oz EFW by ?Hadlock ([id number]) Head / Face / Neck Biometry: Page Designer ? 3.9 ? mm CM ?8.3 [...] Heart / Thorax ?4-chamber view. 3-vessel view. 4-hlaebd-hbjezyx view. Extremities / Skeleton ?Lef t foot. [...] She is planning transfer of care to [facility] Ob-Head Of Sales in anticipation of delivery at [facility]. Return to primary provider for continued care. [...] Pat. Name:BEATRIZ APARICIOAiyana Date:09/14/19 8:47am Pat. NO: [id number] MD:GARRY CABALLERO Site:RidgesSonographer:Rachel Saavedra :1995Age:26 INDICATION Poorly [...] 5 lb 7 oz EFW by Hadlock ([id number]) Head / Face / Neck Biometry: Page Designer 3.9 mm CM 8.3 mm ANATOMY [...] Heart / Thorax 4-chamber view. 3-vessel view. 9-lrkomu-xofkzid view. Extremities / Skeleton Left foot. The [...] She is planning transfer of care to [facility] Ob-Head Of Sales in anticipation of delivery at [facility]. Return to primary provider for continued care. [...] The BPP is reassuring. Freya Moore MD [facility] US ORDERABLES documented in this encounter Visit Diagnoses Diagnosis related condition, antepartum - Primary related condition, antepartum documented in this encounter Care Teams Head Coach Relationship Specialty Start Date End Date Hermelinda Reid MD Endocrinology, Diabetes, and Metabolism [address] [place] [address] documented as of this encounter
--- OUTSIDE RECORDS SUMMARY | 2022-07-12 21:19 | XMS_ITS | Encounter Summary ---
:1995 Author Organization [place] Address [address] [place] [address] Care Team Providers Name Role Phone Hermelinda Reid MD Unavailable [phone] Hermelinda Reid MD Unavailable [phone] Encounter Details Date Type Department Care Team Description 09/17/2021 Travel Social History Tobacco Use Types Packs/Day Years Used Date Smoking Tobacco: Never Smokeless Tobacco: Never Alcohol Use Standard Drinks/Week Comments Not Currently 0 (1 standard drink = 0.6 oz pure alcoho l) Sex Assigned at Date Recorded Female 09/11/2021 7:15 AM CHIP APPLYING MACHINE TENDER COVID-19 Exposure Response Date Recorded In the last month, have you been in contact with No / Unsure 09/17/2021 3:01 PM CHIP APPLYING MACHINE TENDER someone who was confirmed or suspected to have Coronavirus / COVID-19? documented as of this encounter Plan of Treatment Upcoming Encounters Date Type Specialty Care Team Description 07/26/2022 Appointment Radiology. Dion Ramirez MD [address] [place], [place] [address] Liliana Wright MD 420 [facility] 395 [place], [place] [address] 07/26/2022 Office Visit Maternal and Dion Ramirez MD [address] [address] [place], [place] [address] Medicine Liliana Wright MD [address] [facility] [address] [facility] [address] [place], [place] [address] 08/13/2022 Appointment Cardiology Dion Ramirez MD [address] [place], [place] [address] (Wo rk) documented as of this encounter Visit Diagnoses Not on filedocumented in this encounter Care Teams Crinkling Machine Operator Relationship Specialty Start Date End Date MD Jeanette Endocrinology, 08/29/21 MD Hermelinda Diabetes, and [address] [place] [address] [facility] Metabolism 101 [place] [address] Radha Reid Endocrinology 09/09/21 MD Hermelinda Provider 420 [facility] 101 [place], [place] [address] documented as of this encounter
--- OUTSIDE RECORDS SUMMARY | 2022-07-12 21:19 | XMS_ITS | Encounter Summary ---
:1995 Author Organization [place] Address [address] [place] [address] Care Team Providers Name Role Phone Hermelinda Reid MD Unavailable [phone] Hermelinda Reid MD Unavailable [phone] Encounter Details Date Type Department Care Team Description 09/20/2021 Orders Only [facility] L[facility] Son Type 2 diabetes [facility] MD Gianni mellitus (H) (Primary [place] [address] Dx) [address] [place] [address] [address] [place] [address] Social History Tobacco Use Types Packs/Day Years Used Date Smoking Tobacco: Never Smokeless Tobacco: Never Alcohol Use Standard Drinks/Week Comments Not Currently 0 (1 standard drink = 0.6 oz pure alcoho l) Sex Assigned at Date Recorded Female 09/11/2021 7:15 AM DANCE CHOREOGRAPHER COVID-19 Exposure Response Date Recorded In the last month, have you been in contact with No / Unsure 09/20/2021 11:06 AM DANCE CHOREOGRAPHER someone who was confirmed or suspected to have Coronavirus / COVID-19? documented as of this encounter Progress Notes Em Fairchild RN - 09/20/2021 10:22 AM CST Twice weekly BPP ordered under Dr Torrez. Pt had previous order from her other clinic so reports were going to that provider per M RN. Em Fairchild RN E CHOREOGRAPHER documented in this encounter Plan of Treatment Upcoming Encounters Date Type Specialty Care Team Description 07/26/2022 Appointment Radiology. Dion Ramirez MD [address] [place], [place] [address] Liliana Wright MD [address] [place] [address] [facility] 395 [place], [place] [address] 07/26/2022 Office Visit Maternal and Dion Ramriez MD [address] [place] [address] [place], [place] [address] Medicine Liliana Wright MD [address] [place] [address] [facility] 395 [place], [place] [address] 08/13/2022 Appointment Cardiology Dion Ramirez MD [address] [place], [place] [address] (Wo rk) documented as of this encounter Visit Diagnoses Diagnosis Type 2 diabetes mellitus (H) - Primary Type II or unspecified type diabetes jo-ann litus without mention of complication, not stated as uncontrolled documented in this encounter Care Teams Salesperson Corsets Relationship Specialty Start Date End Date MD Jeanette Endocrinology, 08/29/21 MD Hermelinda Diabetes, and [address] [place] [address] [facility] Metabolism 101 [place] [address] Radha Reid Endocrinology 09/09/21 MD Hermelinda Provider [address] [place] [address] [facility] 101 [place] [address] documented as of this encounter
--- OUTSIDE RECORDS SUMMARY | 2022-07-12 21:19 | XMS_ITS | Encounter Summary ---
:1995 Author Organization [place] Address [address] [place] [address] Care Team Providers Name Role Phone Hermelinda Reid MD Unavailable [phone] Hermelinda Reid MD Unavailable Encounter Details Date Type Department Care Team Description 09/18/2021 Telephone [facility] Maternal Monica Velazquez RN [facility] [address] [facility] [address] [place] [address] Social History Tobacco Use Types Packs/Day Years Used Date Smoking Tobacco: Never Smokeless Tobacco: Never Alcohol Use Standard Drinks/Week Comments Not Currently 0 (1 standard drink = 0.6 oz pure alcoho l) Sex Assigned at Date Recorded Female 09/11/2021 7:15 AM QUILLER HAND COVID-19 Exposure Response Date Recorded In the last month, have you been in contact with No / Unsure 09/17/2021 3:01 PM QUILLER HAND someone who was confirmed or suspected to have Coronavirus / COVID-19? documented as of this encounter Miscellaneous Notes Telephone Encounter - Mary Velazquez RN - 09/18/2021 4:23 PM CST Spoke with Dr. Bey this afternoon regarding echo order and discussed that I would touch basewith Dr. Casanova regarding recommendations. Updated Zayda at [facility] OB [facility] [address] Bey to review ultrasound addendum from 09/14/21. LER HAND documented in this encounter Plan of Treatment Upcoming Encounters Date Type Specialty Care Team Description 07/26/2022 Appointment Radiology. Dion Ramirez MD [address] [place] [address] [place], [place] [address] Liliana Wright MD [address] [place] [address] [facility] 395 [place], [place] [address] 07/26/2022 Office Visit Maternal and Dion Ramirez MD [address] [place] [address] [place], [place] [address] Medicine Liliana Wright MD 420 [facility] 395 [place], [place] [address] 08/13/2022 Appointment Cardiology Dion Ramirez MD [address] [place], [place] [address] (Wo rk) documented as of this encounter Visit Diagnoses Not on filedocumented in this encounter Care Teams Linen Supply Load Builder Relationship Specialty Start Date End Date MD Jeanette Endocrinology, 08/29/21 MD Hermelinda Diabetes, and [address] [place] [address] [facility] Metabolism 101 [place], [place] [address] Radha Reid Endocrinology 09/09/21 MD Hermelinda Provider [address] [place] [address] [facility] 101 [place], [place] [address] documented as of this encounter
--- OUTSIDE RECORDS SUMMARY | 2022-07-12 21:19 | XMS_ITS | Encounter Summary ---
:1995 Author Organization [place] Address [address] [place] [address] Care Team Providers Name Role Phone Hermelinda Reid MD Unavailable Hermelinda Reid MD Unavailable [phone] Reason for Visit Reason Onset Date Comments Symptoms 09/19/2021 Encounter Details Date Type Department Care Team Description 09/19/2021 Telephone [facility] Macie Archer MD [address] [facility] [address] [place] [address] [place] [address] [phone] Social History Tobacco Use Types Packs/Day Years Used Date Smoking Tobacco: Never Smokeless Tobacco: Never Alcohol Use Standard Drinks/Week Comments Not Currently 0 (1 standard drink = 0.6 oz pure alcoho l) Sex Assigned at Date Recorded Female 09/11/2021 7:15 AM OYSTER HARVESTER COVID-19 Exposure Response Date Recorded In the last month, have you been in contact with No / Unsure 09/17/2021 3:01 PM OYSTER HARVESTER someone who was confirmed or suspected to have Coronavirus / COVID-19? documented as of this encounter Miscellaneous Notes Telephone Encounter - Erasmo Valdez MD - 09/19/2021 4:51 PM CST Noted. ER HARVESTER Telephone Encounter - Em Fairchild RN - [...] to go into L&D for eval at [facility]. Notified L&D and they will let Dr Valdez know who is there as well. 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 Torrez tomorrow. She is experiencing swelling today and really needs someone to call her back today, because this happened with her other baby ER HARVESTER documented in this encounter Plan of Treatment Upcoming Encounters Date Type Specialty Care Team Description 07/26/2022 Appointment Radiology. Dion Ramirez MD [address] [place], [place] [address] Liliana Wright MD [address] [address] 07/26/2022 Office Visit Maternal and Dion Ramirez MD [address] [place], [place] [address] Medicine Liliana Wright MD [address] [address] 08/13/2022 Appointment Cardiology Dion Ramirez MD [address] [place], [place] [address] (Wo rk) documented as of this encounter Visit Diagnoses Not on filedocumented in this encounter Care Teams Order Fulfillment Specialist Relationship Specialty Start Date End Date MD Jeanette Endocrinology, 08/29/21 MD Hermelinda Diabetes, and [address] [place] [address] [facility] Metabolism 101 [place], [place] [address] Radha Reid Endocrinology 09/09/21 MD Hermelinda Provider 420 [facility] 101 [place], [place] [address] documented as of this encounter
--- OUTSIDE RECORDS SUMMARY | 2022-07-12 21:19 | XMS_ITS | Encounter Summary ---
:1995 Author Organization [place] Address [facility] [place] [address] Care Team Providers Name Role Phone Hermelinda Reid MD Unavailable [phone] Hermelinda Reid MD Unavailable [phone] Reason for Visit Reason Comments Ultrasound BPP: DM2-poorly controlled Encounter Details Date Type Department Care Team Description 09/17/2021 Office Visit [facility] Anthony Casanova MD [address] [facility] 400 [place] [address] with type 2 Maternal Lurdes Echeverria MD [address] [facility] [address] [place] [address] diabetes mellitus in Medicine [facility] third trimester [address] [place] [address] (Primary Dx) [address] [address] Social History Tobacco Use Types Packs/Day Years Used Date Smoking Tobacco: Never Smokeless Tobacco: Never Alcohol Use Standard Drinks/Week Comments Not Currently 0 (1 standard drink = 0.6 oz pure alcoho l) Sex Assigned at Date Recorded Female 09/11/2021 7:15 AM CHURN OPERATOR MARGARINE COVID-19 Exposure Response Date Recorded In the last month, have you been in contact with No / Unsure 09/17/2021 3:01 PM CHURN OPERATOR MARGARINE someone who was confirmed or suspected to have Coronavirus / COVID-19? documented as of this encounter Last Filed Vital Signs Vital Sign Reading Time Taken Comments Blood Pressure 127/86 09/17/2021 3:47 PM CHURN OPERATOR MARGARINE Pulse 90 09/17/2021 3:47 PM CHURN OPERATOR MARGARINE Temperature - - Respiratory Rate - - Oxygen Saturation - - Inhaled Oxygen Concentration - - Weight - - Height - - Body Mass Index - - documented in this encounter Progress Notes Lurdes Echeverria MD - 09/17/2021 3:30 PM CST The patient was seen for an ultrasound in the Maternal- Medicine Center at the [facility]. For a detailed report of the ultrasound examination, please see the ultrasound report which can be found under the imaging tab. Lurdes Echeverria MD Water Main Pipe Layer, WEB APPLICATIONS ADMINISTRATOR Maternal- Medicine [phone] (Pager) N OPERATOR MARGARINE documented in this encounter Nursing Notes Tesring Luo RN - 09/17/2021 3:30 PM CST [...] Discharged ambulatory and stable. Tsering Luo RN N OPERATOR MARGARINE documented in this encounter Plan of Treatment Upcoming Encounters Date Type Specialty Care Team Description 07/26/2022 Appointment Radiology. Dion Ramirez MD [address] [place] [address] Liliana Wright MD 420 [facility] 395 [place], [place] [address] 07/26/2022 Office Visit Maternal and Dion Ramirez MD [address] [place] [address] [place], [place] [address] Medicine Liliana Wright MD [address] [facility] [address] [facility] [address] [place], [place] [phone] 08/13/2022 Appointment Cardiology Dion Ramirez MD [address] [place] [address] (Wo rk) documented as of this encounter Visit Diagnoses Diagnosis with type 2 diabetes mellitus in third trimester - Primary documented in this encounter Care Teams Forming Machine Tender Relationship Specialty Start Date End Date MD Jeanette Endocrinology, 08/29/21 MD Hermelinda Diabetes, and [address] [place] [address] [facility] Metabolism 101 [place], [place] [phone] Radha Reid Endocrinology 09/09/21 MD Hermelinda Provider [address] [place] [address] [facility] 101 [place], [place] [address] documented as of this encounter
--- OUTSIDE RECORDS SUMMARY | 2022-07-12 21:19 | XMS_ITS | Encounter Summary ---
:1995 Author Organization [facility] Address [address] [place] [address] Care Team Providers Name Role Phone Hermelinda Reid MD Unavailable [phone] Hermelinda Reid MD Unavailable [phone] Encounter Details Date Type Department Care Team Description 09/14/2021 Travel Social History Tobacco Use Types Packs/Day Years Used Date Smoking Tobacco: Never Smokeless Tobacco: Never Alcohol Use Standard Drinks/Week Comments Not Currently 0 (1 standard drink = 0.6 oz pure alcoho l) Sex Assigned at Date Recorded Female 09/11/2021 7:[address] COVID-19 Exposure Response Date Recorded In the last month, have you been in contact with No / Unsure 09/14/2021 8:[address] someone who was confirmed or suspected to have Coronavirus / COVID-19? documented as of this encounter Plan of Treatment Upcoming Encounters Date Type Specialty Care Team Description 07/26/2022 Appointment Radiology. Dion Ramirez MD [address] [address] [place], [place] [address] Liliana Wright MD 420 [facility] 395 [place], [place] [address] 07/26/2022 Office Visit Maternal and Dion Ramirez MD [address] [address] [place], [place] [address] Medicine Liliana Wright MD [address] [place] [address] [facility] [address] [place], [place] [address] 08/13/2022 Appointment Cardiology Dion Ramirez MD [address] [place], [place] [address] (Wo rk) documented as of this encounter Visit Diagnoses Not on filedocumented in this encounter Care Teams Operations Dispatcher Relationship Specialty Start Date End Date MD Jeanette Endocrinology, 08/29/21 MD Hermelinda Diabetes, and [address] [place] [address] [facility] Metabolism 101 [place] [address] Radha Reid Endocrinology 09/09/21 MD Hermelinda Provider 420 [facility] 101 [place], [place] [address] documented as of this encounter
--- OUTSIDE RECORDS SUMMARY | 2022-07-12 21:19 | XMS_ITS | Encounter Summary ---
:1995 Author Organization [facility] Address [address] [place] [address] Care Team Providers Name Role Phone Hermelinda Reid MD Unavailable [phone] Hermelinda Reid MD Unavailable [phone] Lurdes Echeverria MD Unavailable Dalia Ervin MD Unavailable No Ref-Primary, Physician Primary Care Provider [phone] Lore Son MD Unavailable [phone] Reason for Visit Reason Onset Date Comments Same Day Appointment 09/14/2021 conflict Encounter Details Date Type Department Care Team Description 09/14/2021 Telephone [facility] Windy Reid D ay Appointment Endocrinology Clinic MD Hermelinda (conflict) [address] [place] [id number] [phone] Social History Tobacco Use Types Packs/Day Years Used Date Smoking Tobacco: Never Smokeless Tobacco: Never Alcohol Use Standard Drinks/Week Comments Not Currently 0 (1 standard drink = 0.6 oz pure alcoho l) Sex Assigned at Date Recorded Female 09/11/2021 7:15 AM BIOASSAYIST COVID-19 Exposure Response Date Recorded In the last month, have you been in contact with No / Unsure 09/17/2021 3:01 PM BIOASSAYIST someone who was confirmed or suspected to have Coronavirus / COVID-19? documented as of this encounter Miscellaneous Notes Telephone Encounter - Sarah Carney - 09/14/2021 10:47 AM [facility] Phone Message May a detailed message be left on voicemail: yes Reason for Call: Other: Pt thought appt for today was in [place]. Pt needs appt switched back to [facility] at 12:20 if possible. Pt had another appt in [place] and didn't realize appt was out of [place]. Please call back to confirm if pt can switch back. [employer] tried back line, no answer. Action Taken: Message routed to: [facility] endo Travel Screening: Not Applicable SSAYIST documented in this encounter Plan of Treatment Upcoming Encounters Date Type Specialty Care Team Description 07/26/2022 Appointment Radiology. Dion Ramirez MD [address] [place] [address] Liliana Wright MD [address] [facility] [address] [place] [address] 07/26/2022 Office Visit Maternal and Dion Ramirez MD [address] [place], [place] [address] Medicine Liliana Wright MD [address] [place] [address] [facility] [address] [place] [address] 08/13/2022 Appointment Cardiology Dion Ramirez MD [address] [place], [place] [address] (Wo rk) documented as of this encounter Visit Diagnoses Not on filedocumented in this encounter Care Teams Pnp Relationship Specialty Start Date End Date No Ref-Primary, PCP - General 04/29/22 Physician MD Jeanette Endocrinology, 08/29/21 MD Hremelinda Diabetes, and [address] [facility] Metabolism [address] [place] [address] Radha Reid Endocrinology 09/09/21 MD Hermelinda Provider [address] [address] [facility] [address] [place], [place] [id number] Lurdes Echeverria MD Assigned OBGYN Provider 09/23/21 10/06/[address] [place], [place] [id number] Dalia Ervin Assigned OBGYN Provider 10/07/[address] [facility] [place] [place] [phone] Lore Son Assigned OBGYN Provider 05/18/22 MD Gianni [address] [place] [address] documented as of this encounter
--- OUTSIDE RECORDS SUMMARY | 2022-07-12 21:19 | XMS_ITS | Encounter Summary ---
:1995 Author Organization [place] Address [address] [place] [address] Care Team Providers Name Role Phone Hermelinda Reid MD Unavailable [phone] Hermelinda Reid MD Unavailable [phone] Encounter Details Date Type Department Care Team Description 09/10/2021 Travel Social History Tobacco Use Types Packs/Day Years Used Date Smoking Tobacco: Never Smokeless Tobacco: Never Alcohol Use Standard Drinks/Week Comments Not Currently 0 (1 standard drink = 0.6 oz pure alcoho l) Sex Assigned at Date Recorded Female 09/11/2021 7:15 AM CASTING TESTER COVID-19 Exposure Response Date Recorded In the last month, have you been in contact Unable to assess 09/10/2021 2:16 PM CASTING TESTER with someone who was confirmed or suspected to have Coronavirus / COVID-19? documented as of this encounter Plan of Treatment Upcoming Encounters Date Type Specialty Care Team Description 07/26/2022 Appointment Radiology. Dion Ramirez MD [address] [place], [place] [phone] Liliana Wright MD [address] [facility] [address] [place], [place] [address] 07/26/2022 Office Visit Maternal and Dion Ramirez MD [address] [place], [place] [address] Medicine Liliana Wright MD [address] [facility] [address] [place], [place] [address] 08/13/2022 Appointment Cardiology Dion Ramirez MD [address] [place], [place] [address] (Wo rk) documented as of this encounter Visit Diagnoses Not on filedocumented in this encounter Care Teams Atmospheric [employer] Professor Relationship Specialty Start Date End Date MD Jeanette Endocrinology, 08/29/21 MD Hermelinda Diabetes, and [address] [place] [address] [facility] Metabolism [address] [place] [address] Radha Reid Endocrinology 09/09/21 MD Hermelinda Provider [address] [facility] [address] [place], [place] [phone] documented as of this encounter
--- OUTSIDE RECORDS SUMMARY | 2022-07-12 21:19 | XMS_ITS | Encounter Summary ---
:1995 Author Organization [facility] Address [address] [place] [id number] Care Team Providers Name Role Phone Hermelinda Reid MD Unavailable [phone] Hermelinda Reid MD Unavailable [phone] Reason for Visit Auth/Cert Specialty Diagnoses / Procedures Referred By Contact Refer red To Contact director of philanthropy Diagnoses Pre-eclampsia Pre-eclampsia Rh Labor And Delivery [address] [place], [place] [address] Phone: Fax: Referral ID Status Reason Start Date Expiration Date Visits Requ ested Visits Authorized [id number] 1 1 Encounter Details Date Type Department Care Team Description 09/21/[address] [facility] Lucie Son SECTION PeriOp Services MD Gianni [address] [place] [address] [place] [address] [phone] (Wo rk) Surgery Details Date/Time Status Location [...] at Date Recorded Female 09/11/2021 7:15 AM BOILER MECHANIC COVID-19 Exposure Response Date Recorded In the last month, have you been in contact with No / Unsure 09/20/2021 11:06 AM BOILER MECHANIC someone who was confirmed or suspected to have Coronavirus / COVID-19? documented as of this encounter Last Filed Vital Signs Vital Sign Reading Time Taken Comments Blood Pressure 156/95 09/21/2021 4:35 PM BOILER MECHANIC Pulse 117 09/21/2021 4:09 PM BOILER MECHANIC Temperature 37.1 ??C (98.8 ??F) 09/21/2021 4:09 PM BOILER MECHANIC Respiratory Rate 22 09/21/2021 4:35 PM BOILER MECHANIC Oxygen Saturation 100% 09/21/2021 4:35 PM BOILER MECHANIC Inhaled Oxygen Concentration - - Weight 94.8 kg (209 lb) 09/21/2021 8:00 AM BOILER MECHANIC Height 160 cm (5' 3) 09/20/2021 2:00 PM BOILER MECHANIC Body Mass Index 35.97 09/20/2021 2:00 PM BOILER MECHANIC documented in this encounter Discharge Summaries Lore Son MD - 09/24/2021 7:32 AM CST [facility] Discharge Summary Beatriz Aparicio Age: [age] year old Date of : 1995 Date of Admission: 09/20/2021 Date of Discharge:: 09/24/2021 Admitting Physician: Lore Son MD Discharge Physician: Lore Son MD Home clinic: [facility] Admission Diagnoses: Intrauterine at 34w4d Pre-eclampsia without [...] medications, labs and imaging. Lore Son MD [facility] ER MECHANIC Lois Grant MD - 09/21/2021 4:38 PM [...] She was admitted under the care of [facility] SUPERVISOR NETWORK CONTROL OPERATORS for preeclampsia evaluation and received betamethasone. She [...] MISTMT1/CMQA1 Name: BEATRIZ APARICIO MRN: [id number] Account: [id number] : 1995 Service Date: 09/21/2021 Document: [id number] ER MECHANIC documented in this encounter Discharge Instructions Discharge [...] questions or concerns once you return home. ER MECHANIC AttachmentsThe following attachments cannot be sent through Care Everywhere. Gestational Hypertension ([place] Citizen)documented in this encounter Medications at Time of [...] reviewed with couplet (pateint and spouse) by senior mortgage underwriter and any/all questions answered. All discharge [...] insulin dose is currently being filled and senior mortgage underwriter will bring down to patient. Patient was discharged with blue eclampsia wrist band and educational paperwork. Preeclampsia information also issued at time of discharge and reviewed s/sx. ER MECHANIC Nahid Freedman, DO - 09/24/2021 11:38 AM CST [facility] Medicine Progress Note - Hospitalist Service Date of Admission: 09/20/2021 Assessment & Plan Beatriz Aparicio is a 26 year old?female who is currently at 34w4d??with PMH significant for uncontrolled DM2, h/o severe preeclampsia s/p c- section??at 35w6d at [facility] in 2017, previous COVID infection (08/24/21), obesity,??and??anxiety [...] Full Code Nahid Freedman DO Hospitalist Service [facility] Securely message with the Digital Envoy Console (learn more here) Text page via [email or web address] Paging/Directory Clinically Significant Risk Factors Present on [...] = values in this interval not displayed. ER MECHANIC Lore Son MD - 09/24/2021 7:31 AM [...] [place], [place]. Fundus firm at U-2 Incision: [place] in place, appear clean, dry and intact. [...] returning on POD#7 (09/27) for removal of alicai in clinic Lore Son MD [facility] ER MECHANIC Nahid Freedman DO - 09/23/2021 1:23 PM CST [facility] Medicine Progress Note - Hospitalist Service Date of Admission: 09/20/2021 Assessment & Plan Beatriz Aparicio is a 26 year old?female who is currently at 34w4d??with PMH significant for uncontrolled DM2, h/o severe preeclampsia s/p c- section??at 35w6d at [place] in 2017, previous COVID infection (08/24/21), obesity,??and??anxiety [...] Monitoring: None Code Status: Full Code Nahid rFeedman DO Hospitalist Service [facility] Securely message with the Digital Envoy Console (learn more here) Text page via [employer] Paging/Directory Clinically Significant Risk Factors Present on [...] = values in this interval not displayed. ER MECHANIC Марина Franco LSW - 09/23/2021 1:14 PM [...] ?? Psychosocial Assessment ?? Introduction to NICU Transmissions Systems Operator role and scope of practice ?? Discussed [...] was given contact information for WIC in [facility]. SW also provided [facility] Resource guide for families with [...] to next visit. LEIGH De La Vega [facility] 09/23/2021 1:14 PM ER MECHANIC Jian Dunn MD - 09/23/2021 10:04 AM CST [facility] Obstetrics Post-Op / Progress Note Assessment [...] - Jian Dunn MD 09/23/2021 10:05 AM ER MECHANIC Nahid Freedman DO - 09/22/2021 3:09 PM CST [facility] Medicine Progress Note - Hospitalist Service Date of Admission: 09/20/2021 Assessment & Plan Beatriz Aparicio is a 26 year old?female who is currently at 34w4d??with PMH significant for uncontrolled DM2, h/o severe preeclampsia s/p c- section??at 35w6d at [facility] in 2017, previous COVID infection (08/24/21), obesity,??and??anxiety [...] to primary service. Donovan Catheter: PRESENT, indication: /GI/GLOBAL HEAD ADVERTISER SOLUTIONS Pelvic Procedure Central Lines: None Cardiac Monitoring: None Code Status: Full Code Nahid Freedman DO Hospitalist Service [facility] Securely message with the Digital Envoy Console (learn more here) Text page via [employer] Paging/Directory Clinically Significant Risk Factors Present on [...] = values in this interval not displayed. ER MECHANIC Christianne Cotto MD - 09/22/2021 12:40 PM [...] for specific discharge recommendations. Christianne Cotto MD ER MECHANIC Lore Son MD - 09/21/2021 2:28 PM CST Was paged to evaluate patient stat for a presumed eclamptic seizure. I seen and evaluated patient. Rapid response was called prior to my arrival. I was updated on status of patient. Patient is awake, alert and oriented although slow to respond to questions. Informed by hospital staff pharmacist that patient had recurrence of severe headache [...] signed the consent form. Lore Son MD [facility] ER MECHANIC Katja Daniels - 09/21/2021 2:23 PM CST [facility] Progress Note L&D 4 Fruit Distributor visited pt and family per property utilization officer page rapid response to room. Upon entrance Fruit Distributor was instructed to take dad of pt's daughter out of the room. Fruit Distributor learnedfrom dad that pt passed out after eating. Oriented to [facility]. After a few minutes, dad was advised to come inside to hold pt hand. Pt and partner welcomed prayer in the vincenzo of Mosque and Taoism. Partner indicated that they havebeen attending [facility] and the pt enjoys baptist. Pt was tired and needing rest. PLAN: Team has been given heel sprayer pager #. SHS remains available. Flower Ling Fruit Distributor Molten Iron Pourer Pager: [phone] ER MECHANIC Nahid Freedman DO - 09/21/2021 2:20 PM CST [facility] Medicine Progress Note - Hospitalist Service Date of Admission: 09/20/2021 Assessment & Plan Beatriz Aparicio is a 26 year old female who is currently at 34w4d with PMH significantfor uncontrolled DM2, h/o severe preeclampsia s/p at 35w6d at [facility] in 2017, previous COVIDinfection (08/24/21), obesity, and [...] Full Code Nahid Freedman DO Hospitalist Service [facility] Securely message with the Digital Envoy Console (learn more here) Text page via [employer] Paging/Directory Clinically Significant Risk Factors Present on [...] = values in this interval not displayed. ER MECHANIC Lore Son MD - 09/21/2021 7:31 AM [...] 135, moderate variability, accels present, no decels [place]: q2-7 minutes A/P: 26 year old 34w5d [...] of delivery -- hx of prior at [facility] in 2016 at 35w6d; operative report not [...] preclampsia without severe features Lore Son MD [facility] ER MECHANIC Jian Dunn MD - 09/21/2021 12:32 AM CST Called to assess patient due to feeling some pelvic pressure following using BR. [place] with Q2-5 min mild ctx felt by patient. Cervix FT per RN check. Will begin IV and give 250cc IVF bolus and treat ctx with nifedipine 20mg Q6 hrs Mannie Dunn MD ER MECHANIC Jian Dunn MD - 09/20/2021 4:39 PM CST Discussed plan of care with Dr. Stafford of [facility]. Agree with admission and course of steroids with Hospitalist assistance in glucose management. Ongoing assessment of PIH symptoms/labs. Timing of delivery to be determined by evolution of PIH symptoms with development of severe featureswarranting delivery and degree of DM control. Dr. Dunn ER MECHANIC documented in this encounter H&P Notes Jian Dunn MD - 09/20/2021 2:11 PM CST [facility] Antepartum History and Physical Beatriz Aparicio Age: [age] year old Date of : 1995 Date of Admission: 09/20/2021 Primary care provider: Valeria Carias Chief Complaint: Beatriz Aparicio is a 26 year old female who is female at 34w4d with poorly controlled Type 2 DM and a Hx of pre eclampsia w/ severe features resulting in delivery by C/S at 35w6d at [facility] 5 yrs ago now being admitted for Pre-eclampsia evaluation. She has been receiving care at [facility] with a plan to transfer care to [facility] OB due to complexity of and likelihood of PTD. She reports an elevated BP of 141/81 at [place] on 09/06 which was followed up with normal PIH labs. She was scheduled for a NOB appt today with Dr. Son. She has been having testing through [facility] and [facility]. She called in yesterday with complaints of increased swelling in the lower extremities. She also endorsed a BEAN and stated her blood sugars have been better recently - no longer in the 300s. She was advised to come to L&D at [facility] for evaluation. She presented today. Primary [...] Continuous monitoring for now. Mannie Dunn MD ER MECHANIC documented in this encounter Consult Notes Erasmo Antonio MD - 09/21/2021 3:23 PM CST Images from the original note were not included. Neurology Consult Note [facility] [September 21, 2021] Admission Date: 09/20/2021 Hospital Day: 2 Code Status: Full Code Patient: Beatriz Aparicio : 1995 CC: No chief complaint on file. Consult Request: Referring Provider: Lore Son MD Indication for Consultation: Neurology IP Consult: General (non-stroke/non-ICU); Patient to be seen:Routine - within 24 hours; Preecclampsia, possible seizure activity; Radiation Engineer may enter orders: Yes; Requesting provider? Hospitalist (if different from attending physician) [CON9] (Order [id number]) Primary Care Provider: Valeria Carias MD HPI: I came to Ms. Aparicio's room for a neurological consultation at the request of Dr. Fernandez. She had been taken to the OR for emergency . I spoke with the service unit operator to document my attempt to see the patient. She is now S/P , and I asked if the neurological consultation was still required. I was told that the consult request has been cancelled. Please call if there are further questions. Erasmo Antonio M.D., Ph.D. [facility] ER MECHANIC Evelina Long PA-C - 09/20/2021 2:17 PM CSTAssociated Order(s): HOSPITALIST IP CONSULT [facility] Consult Note - Hospitalist Service Date of Admission: 09/20/2021 Consult Requested by: Dr. Dunn Reason for Consult: Diabetes management while on betamethasone Assessment & Plan Beatriz Aparicio is a 26 year old female who is currently at 34w4d with PMH significantfor uncontrolled DM2, h/o severe preeclampsia s/p at 35w6d at [facility] in 2017, previous COVIDinfection (08/24/21), obesity, and anxiety who presents for pre-eclampsia evaluation. #Poorly controlled DM2 in : prior to patient was taking Metformin 500 mg BID for 2 years. Since being the patient was switch to NPH and Regular insulin for management. Seen by endocrinology at [facility] during her current but most recently seen [...] - betamethasone per OB team - continue IN FLIGHT REFUELING SYSTEM REPAIRER ASA - diet, DVT prophylaxis, and monitoring per OB team #GERD: resume IN FLIGHT REFUELING SYSTEM REPAIRER Pepcid The patient's care was discussed with the Attending Physician, Dr. Manuel, Bedside Nurse and Dr. Rivera OB team. Evelina Long PA-C [facility] Securely message with the Digital Envoy Console (learn more here) Text page via [employer] Paging/Directory Clinically Significant Risk Factors Present on [...] recent exposure or clinical presentation suggests COVID-19. [facility] are certified under the Clinical Laboratory Improvement Amendments of 1988 (CLIA-88) as qualified to perform moderate and/or high complexity laboratory testing. Wet preparation Status: Abnormal Specimen: Vagina; Swab Result Value Ref Range Trichomonas Absent Absent Yeast Absent Absent Clue Cells Absent Absent WBCs/high power field 1+ (A) None ER MECHANIC Associated attestation - Gurjit Manuel MD - 09/29/2021 4:18 PM BOILER MECHANIC Physician Attestation I, Gurjit Manuel, have reviewed [...] 7 units of Novolog per carb count. Mailing Machine Operator spoke with patient's who helps manage patient's insulin and is aware of what is being worked on; has now sent over prescription forpatient to have OP pharmacy fill this dose (pen), since patient's own personal insulin pens are in [place], [place] and they are still in NICU visiting infant. is aware that this dose will be brought down for patient to self administer the 15 units. Mailing Machine Operator then spoke with OP pharmacy, who is currently working on filling this and working with insurance. ER MECHANIC Plan of Care - Deandra Taylor RN - 09/24/2021 1:29 PM CST OP pharmacy will be sending up the needed insulin dose, and senior mortgage underwriter will bring down to NICU where (discharged) patient remains. ER MECHANIC Plan of Care - Deandra Taylor RN - 09/24/2021 1:29 PM CST Mailing Machine Operator went down to NICU. Patient signed for [...] Beatriz may receive her evening supper dosages. ER MECHANIC Result Encounter Note - Valeria Carias MD - 09/24/2021 1:29 PM CST MFM results and recommendations reviewed. Valeria Carias MD ER MECHANIC Plan of Care - Deandra Taylor RN - 09/24/2021 11:58 AM CST Both MD and Hospitalist have rounded and gave OK for discharge to home later today. Discharge meds are being dispensed and will be issued as well as how/when to take. MD removed lower abdominal dressing over incision line. [place] are present and patient aware to follow [...] removed; patient tearful with this prior to senior mortgage underwriter even beginning to remove. No sliding [...] afternoon. Spouse is supportive and at bedside. ER MECHANIC Plan of Care - Deandra Tyalor RN - 09/24/2021 9:[address] Son rounded this AM, but patient in NICU. MD will round again later. MD gave verbal order for foam tape dressing to be removed and for alicia to remain in place. Patient is to then follow upin clinic in 1 week for staple removal. Patient remains in NICU and will be updated upon return. ER MECHANIC Plan of Care - Argentina Barlow RN [...] of pain. Will continue to monitor pt. ER MECHANIC Plan of Care - Rufina Mcpherson RN - 09/23/2021 5:34 PM CST Pt up ad dusty and ambulating . Pt is breastpumping. certificate and depression scale done . ROP given with instructions . Insulin given . See mar. Blood sugar pre meal (Lunch) at 1700 is 183 . ER MECHANIC Note - Emperatriz Benitez RN - 09/23/2021 2:55 PM CST Mailing Machine Operator checking in with patient to do education [...] nutritive sucks noted. Encouraged patient to pump. ER MECHANIC Plan of Care - Caridad Stout RN [...] over with patient. Plan to discharge tomorrow. ER MECHANIC Provider Notification - Any Andrade RN - 09/23/2021 11:28 AM CST 09/23/21 1128 Provider Notification Provider Name/Title Dr. Freedman Method of Notification Phone Notification Reason Lab Results Called MD for clarification on whether to give NPH with blood sugar of 107. Patient eating currently. Orders received to give NPH 15 units as ordered. ER MECHANIC Note - Emperatriz Benitez RN - 09/23/2021 11:06 AM CST in to see patient yesterday 09/22/2021 baby in NICU. Discussed pumping every 2-3 hours to help bring in milk supply. Encouraged using hands on pumping and hand expressing. Knows to do STS wheninfant stable. to follow if patent would like help with latching when ready. ER MECHANIC Plan of Care - Judie Ochoa RN - 09/23/2021 4:54 AM CST VSS. Denies s/s of PreE. Pain controlled, see MAR. Blood sugars still elevated, see MAR for insulin given. Dressing: c/d/I. Fundal checks and bleeding WNL. Voiding without difficulty; frequent voiding encouraged. +BS. Passing flatus. BM yesterday. Tolerating regular diet. Pumping occasionally. Went tosee in NICU x1. NICU Ipad at bedside. ER MECHANIC Plan of Care - Any Ruiz RN [...] with meals, pt has not eaten dinner. ER MECHANIC Plan of Care - Allison Núñez RN [...] needed. Will continue with plan of care. ER MECHANIC Plan of Care - Hermila Wang RN - 09/21/2021 7:39 PM CST Data: Beatriz Aparicio transferred to [facility] via cart at 1914. Baby in NICU. [...] Response: Patient tolerated transfer and is stable. ER MECHANIC L&D Delivery Note - Lore Son MD - 09/21/2021 5:35 PM BOILER MECHANIC Delivery Summary Beatriz Aparicio Age: [age] year old Date of : 1995 Sonia, Male-Beatriz [[id number]] Labor Length 3rd Stage (hrs): 0 (min): 2 Delivery/Placenta Date and Time Delivery Date: 09/21/21 Delivery Time: 3:03 PM Placenta Date/Time: 09/21/2021 3:05 PM Delivering clinician: Lore Son MD Other personnel present at delivery: Provider Role Savana Saavedra RN Blouin, Helen, RN Abdullahi, Isahaq Mohamed, MD Assistant Kitchen Manager Apgars Living status: Living 1 Minute 5 Minute 10 Minute 15 Minute 20 Minute Skin color: 1 1 Heart rate: 2 2 Reflex irritability: 2 2 Muscle tone: 2 2 Respiratory effort: 1 2 Total: 8 9 Apgars assigned by: SAMRA TRIANA APRN, CNP Cord Vessels: 3 Vessels Cord Complications: None [place] Resuscitation Methods: Oxygen, NCPAP, Bag Mask, Oximetry, [...] Category 1 Delivery (Maternal) (Provider to Complete) (229717) Blood Loss Mother: Beatriz Aparicio #[id number] Start of Mother's Information Delivery Blood Loss 09/21/21 1456 - 09/21/21 1735 Total Surgical QBL Blood Loss (mL) Hospital Encounter 1227 mL Total 1227 mL End of Mother's Information Mother: Beatriz Aparicio #[id number] Delivery - Provider to Complete ([id number]) Delivering clinician: Lore Son MD Delivery Type (Choose the 1 that will go to the History): , Low Transverse Priority: STAT Specifics: Repeat Indications for Repeat: Other Other Indications: eclampsia Other personnel: Provider Role Savana Saavedra RN Blouin, Helen, RN Abdullahi, Isahaq Mohamed, MD Assistant Kitchen Manager Placenta Date/Time: 09/21/2021 3:05 PM Removal: Spontaneous Disposition: Pathology Anesthesia Method: General Presentation and Position Presentation: Vertex Occiput Anterior Lore Son MD ER MECHANIC Provider Notification - Xochitl Mishra RN - 09/21/2021 5:34 PM BOILER MECHANIC 09/21/21 7121 Provider Notification Provider Name/Title Dr Rhoades Method of Notification Phone Request Evaluate-Remote Notification Reason Lab Results Updated MD that the hospitalist has been following pt for her type 2 DM, pt had stat , justarrived to L&D from PACU, on clear liquid diet, and BG level of 239. gave TORB to check BG levels every 4hrs and to use Novolog sliding scale orders. ER MECHANIC Op Note - Lore Son MD - 09/21/2021 4:34 PM CST [facility] Full Operative Note Patient Name:Beatriz Aparicio [...] were correct x 2. Lore Son MD [facility] ER MECHANIC Plan of Care - Maria De Jesus [...] Response team, serial BP's started, 1335 OT 174,CHANCERY CLERK present EKG requested, patient legs shaking, serial [...] in bed being wheeled to OR 7 ER MECHANIC Utilization Review - Gilbert Madrigal MD - [...] h/o severe preeclampsia s/p at 35w6d at [facility] in 2017, previous COVID infection (08/24/21), obesity, [...] section 70.4. Sincerely, GILBERT MADRIGAL MD System Director FederalCivil Engineering Project Designer [facility]. ER MECHANIC Plan of Care - Maria De Jesus Floiran RN - 09/21/2021 1:13 PM CST here with [employer] food, Blood sugar rechecked, headache better ER MECHANIC Plan of Care - Maria De Jesus [...] Significant other to arrive with some food, ER MECHANIC Plan of Care - Maria De Jesus Florian RN - 09/21/2021 8:40 AM CST Patient continues to complain of pain in both legs with numbness and tingling and aching from swelling, does not like sequentials on lower calves,US ordered to rule out DVT patient up and into wheelchair down to US ER MECHANIC Provider Notification - Radha Lou RN - [...] for pain. Per MD continue to monitor. ER MECHANIC Provider Notification - Radha Lou RN - [...] RN for VS. Orders received for tylenol. ER MECHANIC Provider Notification - Radha Lou RN - [...] external monitors, and keep IV at TKO. ER MECHANIC Provider Notification - Radha Lou RN - 09/21/2021 12:26 AM BOILER MECHANIC 09/21/21 0026 Provider Notification Provider Name/Title Dr Dunn Method of Notification At Bedside MD at bedside. Updated on cx now 2-3 minutes apart palpating mild, recent BP 133/85, 2hr post meal BG 170. Pt c/o pins and needles in legs similar to admission. MD will put in order for nifedipine q 6. ER MECHANIC Provider Notification - Karolyn Samayoa RN - 09/21/2021 12:25 AM BOILER MECHANIC 09/21/21 0025 Provider Notification Provider Name/Title Dr. Dunn Method of Notification In Department Primary nurse requested to page . MD in department. Informed that patient is a fingertip and uncomfortable with her contractions. Primary nurse to begin IV fluids. ER MECHANIC Provider Notification - Radha Lou RN - 09/21/2021 12:11 AM BOILER MECHANIC 09/21/21 0011 Provider Notification Provider Name/Title Dr Dunn Method of Notification Phone Updated MD of pt c/o vaginal pressure. toco applied and showing cx q 2-5 minutes palpating very mild. tracing moderate with accelerations. Pt does not have an IV. Orders received to start IV [id number] bolus, check SVE and if anything other than closed cervix update md. ER MECHANIC Provider Notification - Velia Mares RN - 09/20/2021 6:14 PM CST 09/20/214 Provider Notification Provider Name/Title Pharmacy Method of Notification Phone Called pharmacy again seeking verification of pts evening suppertime insulin. Per pharmacist this cannot be verified until confirmation is received from hospitalist. Verification pending clarification. ER MECHANIC Provider Notification - Velia Mares RN - [...] verify/send prior to pt eating evening meal. ER MECHANIC Provider Notification - Velia Mares RN - 09/20/2021 5:30 PM CST 09/20/21 0030 Provider Notification Provider Name/Title Dr. Dunn Method of Notification In Department Request Evaluate - Remote Spoke with MD in department about challenges of monitoring today. VORB per MD for reactive NSTQshift unless change in status r/t pre-eclampsia. ER MECHANIC Pharmacy-Admission Medication History - Dexter Tatum [facility] - 09/20/2021 4:56 PM BOILER MECHANIC Admission medication history interview status for this patient is complete. See [facility] admission navigator for allergy information, prior to admission medications and immunization status. Medication history interview done, indicate source(s): Patient and silk screen cutter history resources (including written lists, pill bottles, clinic record):None Changes made to [employer] medication list: Added: zofran Changed: NPH and [...] 8 hours as needed Yes Reported, Patient ER MECHANIC Provider Notification - Velia Mares RN - [...] all his questions were answered as well. ER MECHANIC Plan of Care - Velia Mares RN [...] at this time. Admitted to room 408. ER MECHANIC Provider Notification - Velia Mares RN - 09/20/2021 11:30 AM BOILER MECHANIC 09/20/21 1130 Provider Notification Provider Name/Title Dr. Dunn Method of Notification At Bedside Request Evaluate in Person Dr. Dunn at bedside to evaluate pt and discuss POC. Per discussion, will continue serial Bps Q15 mins, draw pre-e labs, send wet prep d/t vaginal sx.. Will evaluate lab results then determine further POC. Pt verbalized understanding and agreement. ER MECHANIC Plan of Care - Velia Mares RN [...] Jian Dunn with updateand for further orders. ER MECHANIC Plan of Care - Maria De Jesus Florian RN - 09/20/2021 11:11 AM CST Data: Patient assessed in the [facility] for PreEcl[facility] evaluation Action: EFM/EUM on , serial BP's Response: Orders per Jian Dunn. Patient verbalized understanding of education and verbalized agreement with plan. ER MECHANIC documented in this encounter Plan of Treatment Upcoming Encounters Date Type Specialty Care Team Description 07/26/2022 Appointment Radiology. Dion Ramirez MD [address] [facility] [address] [facility] [address] [place] [address] Liliana Wright MD [address] [facility] [address] [place] [address] 07/26/2022 Office Visit Maternal and Dion Ramirez MD [address] [place] [address] Medicine Liliana Wright MD [address] [address] [facility] [address] [place], [place] [address] 08/13/2022 Appointment Cardiology Dion Ramirez MD [address] [place], [place] [address] (Wo rk) documented as of this encounter Procedures Procedure Name Priority Date/Time Associated Comments Diagnosis GLUCOSE BY METER Routine 09/24/2021 10:51 Results for this AM BOILER MECHANIC procedure are i n the results section. GLUCOSE BY METER Routine 09/24/2021 2:02 Results for this AM BOILER MECHANIC procedure are i n the results section. GLUCOSE BY METER Routine 09/23/2021 9:46 Results for this PM BOILER MECHANIC procedure are i n the results section. GLUCOSE BY METER Routine 09/23/2021 4:49 Results for this PM BOILER MECHANIC procedure are i n the results section. GLUCOSE BY METER Routine 09/23/2021 11:05 Results for this AM BOILER MECHANIC procedure are i n the results section. GLUCOSE BY METER Routine 09/23/2021 2:24 Results for this AM BOILER MECHANIC procedure are i n the results section. GLUCOSE BY METER Routine 09/22/2021 8:42 Results for this PM BOILER MECHANIC procedure are i n the results section. GLUCOSE BY METER Routine 09/22/2021 2:42 Results for this PM BOILER MECHANIC procedure are i n the results section. COMPREHENSIVE STAT 09/22/2021 10:42 Results fo r this METABOLIC PANEL AM BOILER MECHANIC procedure ar e in the results section. GLUCOSE BY METER Routine 09/22/2021 9:15 Results for this AM BOILER MECHANIC procedure are i n the results section. HEMOGLOBIN Routine 09/22/2021 7:18 Results for this AM BOILER MECHANIC procedure are i n the results section. CBC WITH PLATELETS STAT Add-on 09/22/2021 7:18 Result s for this AM BOILER MECHANIC procedure are i n the results section. GLUCOSE BY METER Routine 09/22/2021 5:54 Results for this AM BOILER MECHANIC procedure are i n the results section. GLUCOSE BY METER Routine 09/22/2021 1:08 Results for this AM BOILER MECHANIC procedure are i n the results section. GLUCOSE BY METER Routine 09/21/2021 9:34 Results for this PM BOILER MECHANIC procedure are i n the results section. CT HEAD W/O CONTRAST Routine 09/21/2021 6:33 Resu lts for this PM BOILER MECHANIC procedure are i n the results section. GLUCOSE BY METER Routine 09/21/2021 5:19 Results for this PM BOILER MECHANIC procedure are i n the results section. PLACENTA PATH ORDER Routine 09/21/2021 3:35 Resul ts for this AND INDICATIONS PM BOILER MECHANIC procedure ar e in the results section. SECTION 09/21/2021 2:19 34 weeks gestation PM BOILER MECHANIC of MAGNESIUM STAT 09/21/2021 2:07 Results for this PM BOILER MECHANIC procedure are i n the results section. CREATININE STAT 09/21/2021 2:05 Results for this PM BOILER MECHANIC procedure are i n the results section. AST STAT 09/21/2021 2:05 Results for this PM BOILER MECHANIC procedure are i n the results section. ALT STAT 09/21/2021 2:05 Results for this PM BOILER MECHANIC procedure are i n the results section. CBC WITH PLATELETS STAT 09/21/2021 2:05 Result s for this PM BOILER MECHANIC procedure are i n the results section. EKG 12-LEAD, TRACING STAT 09/21/2021 1:45 Resu lts for this ONLY PM BOILER MECHANIC procedure are i n the results section. GLUCOSE BY METER Routine 09/21/2021 1:36 Results for this PM BOILER MECHANIC procedure are i n the results section. GLUCOSE BY METER Routine 09/21/2021 1:00 Results for this PM BOILER MECHANIC procedure are i n the results section. GLUCOSE BY METER Routine 09/21/2021 11:47 Results for this AM BOILER MECHANIC procedure are i n the results section. GLUCOSE BY METER Routine 09/21/2021 10:30 Results for this AM BOILER MECHANIC procedure are i n the results section. COMPREHENSIVE STAT 09/21/2021 10:27 Results fo r this METABOLIC PANEL AM BOILER MECHANIC procedure ar e in the results section. CBC WITH PLATELETS STAT 09/21/2021 10:27 Resul ts for this AM BOILER MECHANIC procedure are i n the results section. US LOWER EXTREMITY STAT 09/21/2021 9:24 Result s for this VENOUS DUPLEX AM BOILER MECHANIC procedure are in BILATERAL the results section. GLUCOSE BY METER Routine 09/21/2021 7:30 Results for this AM BOILER MECHANIC procedure are i n the results section. TYPE AND SCREEN, Routine 09/21/2021 6:32 Results for this ADULT AM BOILER MECHANIC procedure are i n the results section. ABO/RH TYPE AND Routine 09/21/2021 6:32 Results f or this SCREEN AM BOILER MECHANIC procedure are i n the results section. COMPREHENSIVE Routine 09/21/2021 6:31 Results for this METABOLIC PANEL AM BOILER MECHANIC procedure ar e in the results section. CBC WITH PLATELETS Routine 09/21/2021 6:31 Result s for this AM BOILER MECHANIC procedure are i n the results section. GLUCOSE BY METER Routine 09/21/2021 2:07 Results for this AM BOILER MECHANIC procedure are i n the results section. GLUCOSE BY METER Routine 09/21/2021 12:09 Results for this AM BOILER MECHANIC procedure are i n the results section. GLUCOSE BY METER Routine 09/20/2021 9:31 Results for this PM BOILER MECHANIC procedure are i n the results section. GLUCOSE BY METER Routine 09/20/2021 6:59 Results for this PM BOILER MECHANIC procedure are i n the results section. GLUCOSE BY METER Routine 09/20/2021 5:45 Results for this PM BOILER MECHANIC procedure are i n the results section. COVID-19 VIRUS STAT 09/20/2021 2:42 Results fo r this (CORONAVIRUS) BY PCR PM BOILER MECHANIC procedu re are in the results section. GROUP B STREP PCR Routine 09/20/2021 2:42 Results for this PM BOILER MECHANIC procedure are i n the results section. MFM BPP SINGLE Routine 09/20/2021 2:01 Results fo r this PM BOILER MECHANIC procedure are i n the results section. WET PREPARATION Routine 09/20/2021 11:39 Results for this AM BOILER MECHANIC procedure are i n the results section. URIC ACID STAT 09/20/2021 11:36 Results for this AM BOILER MECHANIC procedure are i n the results section. PROTEIN RANDOM URINE STAT 09/20/2021 11:36 Res ults for this AM BOILER MECHANIC procedure are i n the results section. COMPREHENSIVE STAT 09/20/2021 11:36 Results fo r this METABOLIC PANEL AM BOILER MECHANIC procedure ar e in the results section. CBC WITH PLATELETS STAT 09/20/2021 11:36 Resul ts for this AM BOILER MECHANIC procedure are i n the results section. GLUCOSE BY METER Routine 09/20/2021 11:17 Results for this AM BOILER MECHANIC procedure are i n the results section. documented in this encounter Results (ABNORMAL) Glucose by meter (09/24/2021 10:51 AM BOILER MECHANIC) P athologist Signature GLUCOSE BY 107 (H) 70 - 99 09/24/2021 [facility] METER POCT mg/dL 10:58 AM BOILER MECHANIC POC Specimen (Source) Anatomical Collection Method Collection Time Re ceived Time Location / / Volume Laterality Blood, Capillary BLOOD SPECIMEN / 09/24/2021 10:51 Unknown AM BOILER MECHANIC 10:58 AM BOILER MECHANIC Lore CHENG - BEAKER POCT Performing Organization Address City/[facility]/ZIP Code Phon [place] [address] Care Lab [address] Lab (1st floor, no room number) (ABNORMAL) Glucose by meter (09/24/2021 2:02 AM BOILER MECHANIC) P athologist Signature GLUCOSE BY 178 (H) 70 - 99 09/24/2021 [facility] METER POCT mg/dL 2:09 AM BOILER MECHANIC POC Specimen (Source) Anatomical Collection Method Collection Time Re ceived Time Location / / Volume Laterality Blood, Capillary BLOOD SPECIMEN / 09/24/2021 2:02 09/11 2:09 Unknown AM BOILER MECHANIC AM BOILER MECHANIC Lore CHENG - BENAT POCT Performing Organization Address City/State/ZIP Code Phon [place] [address] Care Lab [address] Lab (1st floor, no room number) (ABNORMAL) Glucose by meter (09/23/2021 9:46 PM BOILER MECHANIC) P athologist Signature GLUCOSE BY 167 (H) 70 - 99 09/23/2021 [facility] METER POCT mg/dL 9:53 PM BOILER MECHANIC POC Specimen (Source) Anatomical Collection Method Collection Time Re ceived Time Location / / Volume Laterality Blood, Capillary BLOOD SPECIMEN / 09/23/2021 9:46 09/11 9:53 Unknown PM BOILER MECHANIC PM BOILER MECHANIC Lore Son MD LAB - BEAKER POCT Performing Organization Address City/[facility]/ZIP Code [place] [address] Care Lab [address] Lab (1st floor, no room number) (ABNORMAL) Glucose by meter (09/23/2021 4:49 PM BOILER MECHANIC) P athologist Signature GLUCOSE BY 183 (H) 70 - 99 09/23/2021 [facility] METER POCT mg/dL 4:58 PM BOILER MECHANIC POC Comment: /RN Notified Specimen (Source) Anatomical Collection Method Collection Time Re ceived Time Location / / Volume Laterality Blood, Capillary BLOOD SPECIMEN / 09/23/2021 4:49 09/11 4:58 Unknown PM BOILER MECHANIC PM BOILER MECHANIC Lore CHENG - JOLENE POCT Performing Organization Address City/[facility]/ZIP Code Ph[place] [address] Care Lab [address] Lab (1st floor, no room number) (ABNORMAL) Glucose by meter (09/23/2021 11:05 AM BOILER MECHANIC) P athologist Signature GLUCOSE BY 107 (H) 70 - 99 09/23/2021 [facility] METER POCT mg/dL 11:22 AM BOILER MECHANIC POC Specimen (Source) Anatomical Collection Method Collection Time Re ceived Time Location / / Volume Laterality Blood, Capillary BLOOD SPECIMEN / 09/23/2021 11:05 Unknown AM BOILER MECHANIC 11:22 AM BOILER MECHANIC Lore CHENG - BEAKER POCT Performing Organization Address City/State/ZIP Code Phon [place] [address] Care Lab [address] Lab (1st floor, no room number) (ABNORMAL) Glucose by meter (09/23/2021 2:24 AM BOILER MECHANIC) P athologist Signature GLUCOSE BY 198 (H) 70 - 99 09/23/2021 [facility] METER POCT mg/dL 2:31 AM BOILER MECHANIC POC Specimen (Source) Anatomical Collection Method Collection Time Re ceived Time Location / / Volume Laterality Blood, Capillary BLOOD SPECIMEN / 09/23/2021 2:24 0210/2021 2:31 Unknown AM BOILER MECHANIC AM BOILER MECHANIC Lore Son MD LAB - BEAKER POCT Performing Organization Address City/State/ZIP Code [place] [address] Care Lab [address] Lab (1st floor, no room number) (ABNORMAL) Glucose by meter (09/22/2021 8:42 PM BOILER MECHANIC) athologist Signature GLUCOSE BY 220 (H) 70 - 99 09/22/2021 [facility] METER POCT mg/dL 8:50 PM BOILER MECHANIC POC Specimen (Source) Anatomical Collection Method Collection Time Re ceived Time Location / / Volume Laterality Blood, Capillary BLOOD SPECIMEN / 09/22/2021 8:42 09/11 8:50 Unknown PM BOILER MECHANIC PM BOILER MECHANIC Lore Son MD LAB - BEAKER POCT Performing Organization Address City/State/ZIP Code [place] [address] Care Lab [address] Lab (1st floor, no room number) (ABNORMAL) Glucose by meter (09/22/2021 2:42 PM BOILER MECHANIC) P athologist Signature GLUCOSE BY 220 (H) 70 - 99 09/22/2021 [facility] METER POCT mg/dL 2:50 PM BOILER MECHANIC POC Comment: Dr/RN Notified Specimen (Source) Anatomical Collection Method Collection Time Re ceived Time Location / / Volume Laterality Blood, Capillary BLOOD SPECIMEN / 09/22/2021 2:42 09/11 2:50 Unknown PM BOILER MECHANIC PM BOILER MECHANIC Lore Gianni Son MD LAB - JOLENE POCT Performing Organization Address City/State/ZIP Code [place] [address] Care Lab [address] Lab (1st floor, no room number) (ABNORMAL) Comprehensive metabolic panel (09/22/2021 10:42 AM BOILER MECHANIC) [facility] Method Time Signature Sodium 136 133 - 144 09/22/2021 LABORATORY mmol/L 11:32 AM BOILER MECHANIC Potassium 4.3 3.4 - 5.3 09/22/2021 LABORATORY mmol/L 11:32 AM BOILER MECHANIC Chloride 107 94 - 109 09/22/2021 LABORATORY mmol/L 11:32 AM BOILER MECHANIC Carbon Dioxide 22 20 - 32 09/22/2021 LABORATORY (CO2) mmol/L 11:32 AM BOILER MECHANIC Anion Gap 7 3 - 14 09/22/2021 LABORATORY mmol/L 11:32 AM BOILER MECHANIC Urea Nitrogen 10 7 - 30 09/22/2021 LABORATORY mg/dL 11:32 AM BOILER MECHANIC Creatinine 0.38 (L) 0.52 - 09/22/2021 LABORATORY 1.04 11:32 AM BOILER MECHANIC mg/dL Calcium 7.1 (L) 8.5 - 09/22/2021 LABORATORY 10.1 11:32 AM BOILER MECHANIC mg/dL Glucose 208 (H) 70 - 99 09/22/2021 LABORATORY mg/dL 11:32 AM BOILER MECHANIC Alkaline 90 40 - 150 09/22/2021 LABORATORY Phosphatase U/L 11:32 AM BOILER MECHANIC AST 17 0 - 45 09/22/2021 LABORATORY U/L 11:32 AM BOILER MECHANIC ALT 16 0 - 50 09/22/2021 LABORATORY U/L 11:32 AM BOILER MECHANIC Protein Total 6.1 (L) 6.8 - 8.8 09/22/2021 LABORATORY g/dL 11:32 AM BOILER MECHANIC Albumin 2.2 (L) 3.4 - 5.0 09/22/2021 LABORATORY g/dL 11:32 AM BOILER MECHANIC Bilirubin Total 0.1 (L) 0.2 - 1.3 09/22/2021 LABORATORY mg/dL 11:32 AM BOILER MECHANIC GFR Estimate >90 >60 09/22/2021 [facility] mL/min/1. 11:32 AM BOILER MECHANIC 73m2 Comment: Effective July 31, 2021 eGF Rcr in adults is calculated using the 2020 CKD-EPI creatinine equation which includ es age and gender (Angelika et al., NEJ, DOI: 10.1056/NXTGdf3562004) Specimen Anatomical Collection Method / Collection Time Recei iva Time (Source) Location / Volume Laterality Blood TOPOGRAPHY UNKNOWN Venipuncture / 09/22/2021 10:42 07/2022 / Unknown Unknown AM BOILER MECHANIC 11:06 AM BOILER MECHANIC Christianne Cotto MD LAB - BLOOD ORDERABLES Performing Organization Address City/State/ZIP Code [place] [address] Care Lab [address] Lab (1st floor, no room number) (ABNORMAL) Glucose by meter (09/22/2021 9:15 AM BOILER MECHANIC) P athologist Signature GLUCOSE BY 174 (H) 70 - 99 09/22/2021 [facility] METER POCT mg/dL 9:22 AM BOILER MECHANIC POC Specimen (Source) Anatomical Collection Method Collection Time Re ceived Time Location / / Volume Laterality Blood, Capillary BLOOD SPECIMEN / 09/22/2021 9:15 09/11 9:22 Unknown AM BOILER MECHANIC AM BOILER MECHANIC Lore Son MD LAB - BEAKER POCT Performing Organization Address City/[facility]/ZIP Code Phon e Number [place] [address] Care Lab [address] Lab (1st floor, no room number) (ABNORMAL) CBC with platelets (09/22/2021 7:18 AM BOILER MECHANIC) Patholo gist Method Time Signature WBC Count 15.6 (H) 4.0 - 11.0 09/22/2021 [facility] 10e3/uL 2:46 PM BOILER MECHANIC RBC Count 3.15 (L) 3.80 - 09/22/2021 [facility] 5.20 2:46 PM BOILER MECHANIC 10e6/uL Hemoglobin 7.4 (L) 11.7 - 09/22/2021 [facility] 15.7 g/dL 2:46 PM BOILER MECHANIC Hematocrit 24.2 (L) 35.0 - 09/22/2021 [facility] 47.0 % 2:46 PM BOILER MECHANIC MCV 77 (L) 78 - 100 09/22/2021 [facility] fL 2:46 PM BOILER MECHANIC MCH 23.5 (L) 26.5 - 09/22/2021 [facility] 33.0 pg 2:46 PM BOILER MECHANIC MCHC 30.6 (L) 31.5 - 09/22/2021 [facility] 36.5 g/dL 2:46 PM BOILER MECHANIC RDW 15.3 (H) 10.0 - 09/22/2021 [facility] 15.0 % 2:46 PM BOILER MECHANIC Platelet Count 280 150 - 450 09/22/2021 [facility] 10e3/uL 2:46 PM BOILER MECHANIC Specimen Anatomical Collection Method Collection Time Receive d Time (Source) Location / / Volume Laterality Blood STRUCTURE OF RIGHT Capillary / 09/22/2021 7:18 AM 07/2022 7:39 HAND / Unknown Unknown BOILER MECHANIC AM BOILER MECHANIC Christianne Cotto MD LAB - BLOOD ORDERABLES Performing Organization Address City/State/[place] [address] Care Lab [address] Lab (1st floor, no room number) (ABNORMAL) Hemoglobin (09/22/2021 7:18 AM BOILER MECHANIC) athologist Signature Hemoglobin 7.4 (L) 11.7 - 15.7 09/22/2021 LABORATORY g/dL 7:51 AM BOILER MECHANIC Specimen Anatomical Collection Method Collection Time Receive d Time (Source) Location / / Volume Laterality Blood STRUCTURE OF RIGHT Capillary / 09/22/2021 7:18 AM 07/2022 7:39 HAND / Unknown Unknown BOILER MECHANIC AM BOILER MECHANIC Lore Son MD LAB - BLOOD ORDERABLES Performing Organization Address City/State/[place] [address] Care Lab [address] Lab (1st floor, no room number) (ABNORMAL) Glucose by meter (09/22/2021 5:54 AM BOILER MECHANIC) athologist Signature GLUCOSE BY 261 (H) 70 - 99 09/22/2021 [facility] METER POCT mg/dL 6:02 AM BOILER MECHANIC POC Specimen (Source) Anatomical Collection Method Collection Time Re ceived Time Location / / Volume Laterality Blood, Capillary BLOOD SPECIMEN / 09/22/2021 5:54 09/11 6:02 Unknown AM BOILER MECHANIC AM BOILER MECHANIC Lore Son MD LAB - BEAKER POCT Performing Organization Address [facility]/[place] [address] Care Lab [address] Lab (1st floor, no room number) (ABNORMAL) Glucose by meter (09/22/2021 1:08 AM BOILER MECHANIC) athologist Signature GLUCOSE BY 229 (H) 09/22/2021 [facility] METER POCT mg/dL 1:16 AM BOILER MECHANIC POC Comment: /ELVIS Notified Specimen (Source) Anatomical Collection Method Collection Time Re ceived Time Location / / Volume Laterality Blood, Capillary BLOOD SPECIMEN / 09/22/2021 1:08 09/11 1:16 Unknown AM BOILER MECHANIC AM BOILER MECHANIC Lore Son MD LAB - BENAT POCT Performing Organization Address [facility]/[place] [address] Care Lab [address] Lab (1st floor, no room number) (ABNORMAL) Glucose by meter (09/21/2021 9:34 PM BOILER MECHANIC) athologist Signature GLUCOSE BY 228 (H) 70 - 99 09/21/2021 [facility] METER POCT mg/dL 9:41 PM BOILER MECHANIC POC Comment: /RN Notified Specimen (Source) Anatomical Collection Method Collection Time Re ceived Time Location / / Volume Laterality Blood, Capillary BLOOD SPECIMEN / 09/21/2021 9:34 09/11 9:41 Unknown PM BOILER MECHANIC PM BOILER MECHANIC Lore Son MD LAB - BENAT POCT Performing Organization Address City/[facility]/ZIP Code Phon e Number [facility] [place] [address] Care Lab [address] Lab (1st floor, no room number) CT Head w/o Contrast (09/21/2021 6:33 PM BOILER MECHANIC) Anatomical Region Laterality Modality Head, SUBRAD CT NEURO, SUBRAD CT NEURO, UMP CT NEURO, Computed Tomography RAD CT Specimen (Source) Anatomical Location Collection Method / Collectio n Time Received Time / Laterality Volume Impressions 09/22/2021 4:33 PM BOILER MECHANIC IMPRESSION: 1. No CT findings of acute intracranial process. 2. Mild generalized brain parenchymal vo lume loss. 3. Suggestion of minimal patchy nonspeci fic hypodensity in the cerebral white matter, as described. As clinically warranted, follow-up MRI c ould be considered for further evaluation, particularly given the patie nt's history of recent seizure-like activity. DEXTER LOWE MD SYSTEM ID: [id number] Narrative 09/22/2021 4:[address] SCAN OF THE HEAD WITHOUT CONTRAST [...] seizure-like activity. DEXTER LOWE MD SYSTEM ID: [id number] Mikeselene Gianni Son MD IMG CT ORDERABLES (ABNORMAL) Glucose by meter (09/21/2021 5:19 PM BOILER MECHANIC) P athologist Signature GLUCOSE BY 239 (H) 70 - 99 09/21/2021 [facility] METER POCT mg/dL 5:28 PM BOILER MECHANIC POC Comment: Dr/RN Notified Specimen (Source) Anatomical Collection Method Collection Time Re ceived Time Location / / Volume Laterality Blood, Capillary BLOOD SPECIMEN / 09/21/2021 5:19 09/11 5:28 Unknown PM BOILER MECHANIC PM BOILER MECHANIC Lore CHENG [facility] POCT Performing Organization Address City/State/ZIP Code Phon [place] [address] Care Lab [address] Lab (1st floor, no room number) Placenta Path Order and Indications (PLACENTA) (09/21/2021 3:35 PM BOILER MECHANIC) Component Value Ref Test Analysis Performed At [facility] gist Range Method Time Signature Case Report Surgical Pathology Report ? Case: [id number] ? 09/25/2021 Authorizing Provider: ??Dinah merrill, Lore Archer, Collected: ? 09/21/2021 03:35 PM ? 2:34 PM LABORATOR Y ? MD ? BOILER MECHANIC [facility]ing Location: ? [facility] ?? Received: ?09/21/2021 04:27 PM ? [facility] ? Pathologist: ? Serg Brady, ? MD ? Specimen: ?Placenta, Thi rd Trimester, Placenta ? Final Placenta: 09/25/2021 Electroni osiel Diagnosis - Membranes without diagnostic histologic abnormality. 2:34 PM LABORATORY signed by - Umbilical cord without diagnostic histologic abnormality. BOILER MECHANIC Serg Brady - Placenta disc weight withi n normal limits (between tenth percentile and ninetieth percentile) for 34 weeks gestational age. MD Erasmo on 09/25/2021 at 2:34 PM Clinical [id number] 09/25/2021 Information 2:34 PM LABORATORY BOILER MECHANIC Jf A(A). Placenta, Third Trimester, Placenta: 09/25/2021 [...] nearest placental margin and has 3 ves BOILER MECHANIC sels on cross-section. The f etal membranes are pink-purple and semitransparent. The maternal surface cotyledons are uniform and intact. Upon serial sectioning the placenta parenchyma is red-purple and s pongy throughout. Payroll Manager sections are submitted in 3 cassettes. Cassette 1: Umbilical cord and membranes Cassette 2-3: Placenta parenchyma (DE Torres [facility]) Microscopic A microscopic 09/25/2021 Description examination is 2:34 PM LABORATORY performed. BOILER MECHANIC Performing The technical 09/25/2021 [facility] component of this 2:34 PM LABORATORY testing was BOILER MECHANIC completed at [facility] Case Images 09/25/2021 2:34 PM LABORATORY BOILER MECHANIC Specimen Anatomical Collection Method Collection Time Receive d Time (Source) Location / / Volume Laterality Placenta PLACENTAL Non-blood 09/21/2021 3:35 PM 4:27 STRUCTURE / Collection / BOILER MECHANIC PM BOILER MECHANIC Unknown Unknown Lore Son MD LAB - BEAKER AP Performing Organization Address City/[facility]/ZIP Code Phon [place] Number [place] [phone] Acute Care Lab [address] 1st floor, [address] [place] [address], Care Lab [facility] [address] Lab (1st floor, no room number) Magnesium (09/21/2021 2:07 PM BOILER MECHANIC) athologist Signature Magnesium 1.9 1.6 - 2.3 09/21/2021 [facility] mg/dL 5:42 PM BOILER MECHANIC Specimen Anatomical Collection Method / Collection Time Recei iva Time (Source) Location / Volume Laterality Blood STRUCTURE OF RIGHT Venipuncture / 09/21/2021 2:07 09/11 2:13 UPPER LIMB / Unknown PM BOILER MECHANIC PM BOILER MECHANIC Unknown Lore Son MD LAB - BLOOD ORDERABLES Performing Organization Address City/State/ZIP Code [place] [address] Care Lab [address] Lab (1st floor, no room number) (ABNORMAL) Creatinine (09/21/2021 2:05 PM BOILER MECHANIC) athologist Signature Creatinine 0.36 (L) 0.52 - 09/21/2021 [facility] 1.04 mg/dL 2:40 PM BOILER MECHANIC GFR Estimate >90 >60 09/21/2021 [facility] mL/min/1.7 2:40 PM BOILER MECHANIC 3m2 Comment: Effective July 31, 2021 eGF Rcr in adults is calculated using the 2020 CKD-EPI creatinine equation which includ es age and gender (Angelika et al., [place], DOI: 10.1056/BLQZsv5942032) Specimen Anatomical Collection Method / Collection Time Recei iva Time (Source) Location / Volume Laterality Blood STRUCTURE OF RIGHT Venipuncture / 09/21/2021 2:05 09/11 2:13 UPPER LIMB / Unknown PM BOILER MECHANIC PM BOILER MECHANIC Unknown Lore Son MD LAB - BLOOD ORDERABLES Performing Organization Address City/State/[place] [address] Care Lab [address] Lab (1st floor, no room number) ALT (09/21/2021 2:05 PM BOILER MECHANIC) P athologist Signature ALT 14 0 - 50 U/L 09/21/2021 2:40 [facility] PM BOILER MECHANIC Specimen Anatomical Collection Method / Collection Time Recei iva Time (Source) Location / Volume Laterality Blood STRUCTURE OF RIGHT Venipuncture / 09/21/2021 2:05 09/11 2:13 UPPER LIMB / Unknown PM BOILER MECHANIC PM BOILER MECHANIC Unknown Lore Son MD LAB - BLOOD ORDERABLES Performing Organization Address City/State/[place] [address] Care Lab [address] Lab (1st floor, no room number) AST (09/21/2021 2:05 PM BOILER MECHANIC) P athologist Signature AST 13 0 - 45 U/L 09/21/2021 2:40 [facility] PM BOILER MECHANIC Specimen Anatomical Collection Method / Collection Time Recei iva Time (Source) Location / Volume Laterality Blood STRUCTURE OF RIGHT Venipuncture / 09/21/2021 2:05 09/11 2:13 UPPER LIMB / Unknown PM BOILER MECHANIC PM BOILER MECHANIC Unknown Lore Son MD LAB - BLOOD ORDERABLES Performing Organization Address City/State/ZIP Code [place] [phone] Care Lab [address] Lab (1st floor, no room number) (ABNORMAL) CBC with platelets (09/21/2021 2:05 PM BOILER MECHANIC) [facility] gist Method Time Signature WBC Count 15.1 (H) 4.0 - 11.0 09/21/2021 [facility] 10e3/uL 2:16 PM BOILER MECHANIC RBC Count 4.35 3.80 - 09/21/2021 [facility] 5.20 2:16 PM BOILER MECHANIC 10e6/uL Hemoglobin 10.1 (L) 11.7 - 09/21/2021 [facility] 15.7 g/dL 2:16 PM BOILER MECHANIC Hematocrit 33.8 (L) 35.0 - 09/21/2021 [facility] 47.0 % 2:16 PM BOILER MECHANIC MCV 78 78 - 100 09/21/2021 [facility] fL 2:16 PM BOILER MECHANIC MCH 23.2 (L) 26.5 - 09/21/2021 [facility] 33.0 pg 2:16 PM BOILER MECHANIC MCHC 29.9 (L) 31.5 - 09/21/2021 [facility] 36.5 g/dL 2:16 PM BOILER MECHANIC RDW 15.4 (H) 10.0 - 09/21/2021 [facility] 15.0 % 2:16 PM BOILER MECHANIC Platelet Count 316 150 - 450 09/21/2021 [facility] 10e3/uL 2:16 PM BOILER MECHANIC Specimen Anatomical Collection Method / Collection Time Recei iva Time (Source) Location / Volume Laterality Blood STRUCTURE OF RIGHT Venipuncture / 09/21/2021 2:05 02/08/2021 2:13 UPPER LIMB / Unknown PM BOILER MECHANIC PM BOILER MECHANIC Unknown Lore Son MD LAB - BLOOD ORDERABLES Performing Organization Address City/State/ZIP Code [place] [phone] Care Lab [address] Lab (1st floor, no room number) EKG 12-lead, tracing only (09/21/2021 1:45 PM BOILER MECHANIC) Component Value Ref Range Test Analysis Performed Pathologis t Method Time At Signature Systolic Blood mmHg RADIOLOGY Pressure RESULTS Diastolic Blood mmHg RADIOLOGY Pressure RESULTS Ventricular Rate 111 BPM RADIOLOGY RESULTS Atrial Rate 111 BPM RADIOLOGY RESULTS AL Interval 152 ms RADIOLOGY RESULTS QRS Duration 66 ms RADIOLOGY RESULTS QT 312 ms RADIOLOGY RESULTS QTc 424 ms RADIOLOGY RESULTS P Gordon 64 degrees RADIOLOGY RESULTS R AXIS 52 degrees RADIOLOGY RESULTS T Gordon 46 degrees RADIOLOGY RESULTS Interpretation Sinus tachycardia RADIOLO GY ECG Otherwise normal ECG RESULTS Confirmed by MD AIME, CONCEPCION NICOLE ([id number]), electronic news gathering editor TULIO BETTS ([id number]) on 10/04/2021 7:58:14 AM Specimen Anatomical Collection Method Collection Time Receive d Time (Source) Location / / Volume Laterality 09/21/2021 1:45 PM 7:58 BOILER MECHANIC AM BOILER MECHANIC Nahid Freedman DO ECG ORDERABLES Performing Organization Address City/State/ZIP Code Phon e Number RADIOLOGY RESULTS (ABNORMAL) Glucose by meter (09/21/2021 1:36 PM BOILER MECHANIC) P athologist Signature GLUCOSE BY 174 (H) 70 - 99 09/21/2021 [facility] METER POCT mg/dL 1:42 PM BOILER MECHANIC POC Specimen (Source) Anatomical Collection Method Collection Time Re ceived Time Location / / Volume Laterality Blood, Capillary BLOOD SPECIMEN / 09/21/2021 1:36 09/11 1:42 Unknown PM BOILER MECHANIC PM BOILER MECHANIC Lore Son MD LAB - BEAKER POCT Performing Organization Address City/State/ZIP Code Phon e [place] [address] Care Lab [address] Lab (1st floor, no room number) (ABNORMAL) Glucose by meter (09/21/2021 1:00 PM BOILER MECHANIC) P athologist Signature GLUCOSE BY 176 (H) 70 - 99 09/21/2021 [facility] METER POCT mg/dL 1:07 PM BOILER MECHANIC POC Specimen (Source) Anatomical Collection Method Collection Time Re ceived Time Location / / Volume Laterality Blood, Capillary BLOOD SPECIMEN / 09/21/2021 1:00 09/11 1:07 Unknown PM BOILER MECHANIC PM BOILER MECHANIC Lore Son MD LAB - BEAKER POCT Performing Organization Address City/State/ZIP Code Phon e Number [place] [address] Care Lab [address] Lab (1st floor, no room number) (ABNORMAL) Glucose by meter (09/21/2021 11:47 AM BOILER MECHANIC) P athologist Signature GLUCOSE BY 163 (H) 70 - 99 09/21/2021 [facility] LAB[facility] METER POCT mg/dL 11:55 AM BOILER MECHANIC POC Specimen (Source) Anatomical Collection Method Collection Time Re ceived Time Location / / Volume Laterality Blood, Capillary BLOOD SPECIMEN / 09/21/2021 11:47 06/2022 Unknown AM BOILER MECHANIC 11:55 AM BOILER MECHANIC Lore Son MD LAB - BEAKER POCT Performing Organization Address City/[facility]/ZIP Code Phon [place] [address] Care Lab [address] Lab (1st floor, no room number) (ABNORMAL) Glucose by meter (09/21/2021 10:30 AM BOILER MECHANIC) P athologist Signature GLUCOSE BY 163 (H) 70 - 99 09/21/2021 [facility] METER POCT mg/dL 10:37 AM BOILER MECHANIC POC Specimen (Source) Anatomical Collection Method Collection Time Re ceived Time Location / / Volume Laterality Blood, Capillary BLOOD SPECIMEN / 09/21/2021 10:30 06/2022 Unknown AM BOILER MECHANIC 10:37 AM BOILER MECHANIC Lore Son MD LAB - BEAKER POCT Performing Organization Address City/State/ZIP Code Phon e Number [place] [address] Care Lab [address] Lab (1st floor, no room number) (ABNORMAL) Comprehensive metabolic panel (09/21/2021 10:27 AM BOILER MECHANIC) Patholo gist Method Time Signature Sodium 136 133 - 144 09/21/2021 [facility] mmol/L 11:06 AM BOILER MECHANIC Potassium 3.8 3.4 - 5.3 09/21/2021 LABORATORY mmol/L 11:06 AM BOILER MECHANIC Chloride 108 94 - 109 09/21/2021 LABORATORY mmol/L 11:06 AM BOILER MECHANIC Carbon Dioxide 19 (L) 20 - 32 09/21/2021 LABORATORY (CO2) mmol/L 11:06 AM BOILER MECHANIC Anion Gap 9 3 - 14 09/21/2021 LABORATORY mmol/L 11:06 AM BOILER MECHANIC Urea Nitrogen 11 7 - 30 09/21/2021 LABORATORY mg/dL 11:06 AM BOILER MECHANIC Creatinine 0.38 (L) 0.52 - 09/21/2021 LABORATORY 1.04 11:06 AM BOILER MECHANIC mg/dL Calcium 8.7 8.5 - 09/21/2021 LABORATORY 10.1 11:06 AM BOILER MECHANIC mg/dL Glucose 189 (H) 70 - 99 09/21/2021 LABORATORY mg/dL 11:06 AM BOILER MECHANIC Alkaline 102 40 - 150 09/21/2021 LABORATORY Phosphatase U/L 11:06 AM BOILER MECHANIC AST 12 0 - 45 09/21/2021 LABORATORY U/L 11:06 AM BOILER MECHANIC ALT 17 0 - 50 09/21/2021 LABORATORY U/L 11:06 AM BOILER MECHANIC Protein Total 6.6 (L) 6.8 - 8.8 09/21/2021 LABORATORY g/dL 11:06 AM BOILER MECHANIC Albumin 2.2 (L) 3.4 - 5.0 09/21/2021 LABORATORY g/dL 11:06 AM BOILER MECHANIC Bilirubin Total 0.3 0.2 - 1.3 09/21/2021 LABORATORY mg/dL 11:06 AM BOILER MECHANIC GFR Estimate >90 >60 09/21/2021 LABORATORY mL/min/1. 11:06 AM BOILER MECHANIC 73m2 Comment: Effective July 31, 2021 eGF Rcr in adults is calculated using the 2020 CKD-EPI creatinine equation which includ es age and gender (Angelika et al., NEJM, DOI: 10.1056/JPAYmj1872454) Specimen Anatomical Collection Method / Collection Time Recei iva Time (Source) Location / Volume Laterality Blood STRUCTURE OF RIGHT Venipuncture / 09/21/2021 10:27 06/2022 UPPER LIMB / Unknown AM BOILER MECHANIC 10:34 AM BOILER MECHANIC Unknown Isahaq Mohamed Huy MD LAB - BLOOD ORDERABLES Performing Organization Address City/State/ZIP Code [place] [phone] Care Lab [address] Lab (1st floor, no room number) (ABNORMAL) CBC with platelets (09/21/2021 10:27 AM BOILER MECHANIC) [facility] gist Method Time Signature WBC Count 12.1 (H) 4.0 - 11.0 09/21/2021 [facility] LAB[facility] 10e3/uL 10:39 AM BOILER MECHANIC RBC Count 4.18 3.80 - 09/21/2021 [facility] LAB[facility] 5.20 10:39 AM BOILER MECHANIC 10e6/uL Hemoglobin 9.8 (L) 11.7 - 09/21/2021 [facility] 15.7 g/dL 10:39 AM BOILER MECHANIC Hematocrit 32.5 (L) 35.0 - 09/21/2021 [facility] 47.0 % 10:39 AM BOILER MECHANIC MCV 78 78 - 100 09/21/2021 [facility] LAB[facility] fL 10:39 AM BOILER MECHANIC MCH 23.4 (L) 26.5 - 09/21/2021 [facility] 33.0 pg 10:39 AM BOILER MECHANIC MCHC 30.2 (L) 31.5 - 09/21/2021 [facility] 36.5 g/dL 10:39 AM BOILER MECHANIC RDW 15.3 (H) 10.0 - 09/21/2021 [facility] LAB[facility]AT[facility] 15.0 % 10:39 AM BOILER MECHANIC Platelet Count 279 150 - 450 09/21/2021 [facility] LAB[facility]AT[facility] 10e3/uL 10:39 AM BOILER MECHANIC Specimen Anatomical Collection Method / Collection Time Recei iva Time (Source) Location / Volume Laterality Blood STRUCTURE OF RIGHT Venipuncture / 09/21/2021 10:27 06/2022 UPPER LIMB / Unknown AM BOILER MECHANIC 10:34 AM BOILER MECHANIC Unknown Lore Son MD LAB - BLOOD ORDERABLES Performing Organization Address City/State/ZIP Code [place] [phone] Care Lab [address] Lab (1st floor, no room number) US Lower Extremity Venous Duplex Bilateral (09/21/2021 9:24 AM BOILER MECHANIC) Anatomical Region Laterality Modality Vascular, Thigh, Leg Ultrasound Specimen (Source) Anatomical Location Collection Method / Collectio n Time Received Time / Laterality Volume Impressions 09/21/2021 9:50 AM BOILER MECHANIC IMPRESSION: No deep vein thrombosis in either lower extremity. ?? HAILEY KAM DO Narrative 09/21/2021 9:50 AM BOILER MECHANIC VENOUS ULTRASOUND BILATERAL LEG(S) ??09/21/2021 9:24 AM [...] (ABNORMAL) Glucose by meter (09/21/2021 7:30 AM BOILER MECHANIC) P athologist Signature GLUCOSE BY 131 (H) 70 - 99 09/21/2021 [facility] LAB[facility]AT[facility] METER POCT mg/dL 7:37 AM BOILER MECHANIC POC Specimen (Source) Anatomical Collection Method Collection Time Re ceived Time Location / / Volume Laterality Blood, Capillary BLOOD SPECIMEN / 09/21/2021 7:30 09/11 7:37 Unknown AM BOILER MECHANIC AM BOILER MECHANIC Lore CHENG - AILYNAKER POCT Performing Organization Address City/State/ZIP Code Phon e [place] [address] Care Lab [address] Lab (1st floor, no room number) Adult Type and Screen (09/21/2021 6:32 AM BOILER MECHANIC) [facility] Method Time Signature ABO/RH(D) O POS 09/21/2021 RH BLOOD 6:30 AM BOILER MECHANIC BANK Antibody Negative Negative 09/21/2021 RH BLOOD Screen 6:30 AM BOILER MECHANIC BANK SPECIMEN [id number] 09/21/2021 RH BLOOD EXPIRATION 6:30 AM BOILER MECHANIC BANK DATE Specimen Anatomical Collection Method / Collection Time Recei iva Time (Source) Location / Volume Laterality Blood STRUCTURE OF LEFT Venipuncture / 09/21/2021 6:32 09/21 7:02 UPPER LIMB / Unknown AM BOILER MECHANIC AM BOILER MECHANIC Unknown Jian Dunn MD LAB - BLOOD BANK TEST ORDER Performing Organization Address City/State/ZIP Code Phon e Number RH BLOOD BANK [address] [place] [address] (ABNORMAL) Comprehensive metabolic panel (09/21/2021 6:31 AM BOILER MECHANIC) [facility] Method Time Signature Sodium 135 133 - 144 09/21/2021 [facility] LABORATORY mmol/L 7:32 AM BOILER MECHANIC Potassium 4.1 3.4 - 5.3 09/21/2021 [facility] LABORATORY mmol/L 7:32 AM BOILER MECHANIC Chloride 109 94 - 109 09/21/2021 LABORATORY mmol/L 7:32 AM BOILER MECHANIC Carbon Dioxide 18 (L) 20 - 32 09/21/2021 LABORATORY (CO2) mmol/L 7:32 AM BOILER MECHANIC Anion Gap 8 3 - 14 09/21/2021 LABORATORY mmol/L 7:32 AM BOILER MECHANIC Urea Nitrogen 9 7 - 30 09/21/2021 LABORATORY mg/dL 7:32 AM BOILER MECHANIC Creatinine 0.35 (L) 0.52 - 09/21/2021 [facility] LABORATORY 1.04 7:32 AM BOILER MECHANIC mg/dL Calcium 8.7 8.5 - 09/21/2021 [facility] LABORATORY 10.1 7:32 AM BOILER MECHANIC mg/dL Glucose 143 (H) 70 - 99 09/21/2021 LABORATORY mg/dL 7:32 AM BOILER MECHANIC Alkaline 104 40 - 150 09/21/2021 LABORATORY Phosphatase U/L 7:32 AM BOILER MECHANIC AST 10 0 - 45 09/21/2021 LABORATORY U/L 7:32 AM BOILER MECHANIC ALT 15 0 - 50 09/21/2021 LABORATORY U/L 7:32 AM BOILER MECHANIC Protein Total 6.8 6.8 - 8.8 09/21/2021 LABORATORY g/dL 7:32 AM BOILER MECHANIC Albumin 2.4 (L) 3.4 - 5.0 09/21/2021 [facility] LABORATORY g/dL 7:32 AM BOILER MECHANIC Bilirubin Total 0.2 0.2 - 1.3 09/21/2021 LABORATORY mg/dL 7:32 AM BOILER MECHANIC GFR Estimate >90 >60 09/21/2021 LABORATORY mL/min/1. 7:32 AM BOILER MECHANIC 73m2 Comment: Effective July 31, 2021 eGF Rcr in adults is calculated using the 2020 CKD-EPI creatinine equation which includ es age and gender (Angelika et al., NEJM, DOI: 10.1056/[id number]) Specimen Anatomical Collection Method / Collection Time Recei iva Time (Source) Location / Volume Laterality Blood STRUCTURE OF LEFT Venipuncture / 09/21/2021 6:31 09/21 7:02 UPPER LIMB / Unknown AM BOILER MECHANIC AM BOILER MECHANIC Unknown Jian Dunn MD LAB - BLOOD ORDERABLES Performing Organization Address City/State/ZIP Code [place] [phone] Care Lab [address] Lab (1st floor, no room number) (ABNORMAL) CBC with platelets (09/21/2021 6:31 AM BOILER MECHANIC) [facility] Method Time Signature WBC Count 13.8 (H) 4.0 - 11.0 09/21/2021 RH LABORATORY 10e3/uL 7:15 AM BOILER MECHANIC RBC Count 4.41 3.80 - 09/21/2021 [facility] LABORATORY 5.20 7:15 AM BOILER MECHANIC 10e6/uL Hemoglobin 10.1 (L) 11.7 - 09/21/2021 [facility] LABORATORY 15.7 g/dL 7:15 AM BOILER MECHANIC Hematocrit 34.4 (L) 35.0 - 09/21/2021 LABORATORY 47.0 % 7:15 AM BOILER MECHANIC MCV 78 78 - 100 09/21/2021 [facility] LABORATORY fL 7:15 AM BOILER MECHANIC MCH 22.9 (L) 26.5 - 09/21/2021 [facility] LABORATORY 33.0 pg 7:15 AM BOILER MECHANIC MCHC 29.4 (L) 31.5 - 09/21/2021 [facility] LABORATORY 36.5 g/dL 7:15 AM BOILER MECHANIC RDW 15.2 (H) 10.0 - 09/21/2021 [facility] LABORATORY 15.0 % 7:15 AM BOILER MECHANIC Platelet Count 299 150 - 450 09/21/2021 [facility] LABORATORY 10e3/uL 7:15 AM BOILER MECHANIC Specimen Anatomical Collection Method / Collection Time Recei iva Time (Source) Location / Volume Laterality Blood STRUCTURE OF LEFT Venipuncture / 09/21/2021 6:31 09/21 7:14 UPPER LIMB / Unknown AM BOILER MECHANIC AM BOILER MECHANIC Unknown Jian Dunn MD LAB - BLOOD ORDERABLES Performing Organization Address City/[facility]/ZIP Code [place] [address] Care Lab [address] Lab (1st floor, no room number) (ABNORMAL) Glucose by meter (09/21/2021 2:07 AM BOILER MECHANIC) P athologist Signature GLUCOSE BY 173 (H) 70 - 99 09/21/2021 [facility] LABORATORY METER POCT mg/dL 2:13 AM BOILER MECHANIC POC Specimen (Source) Anatomical Collection Method Collection Time Re ceived Time Location / / Volume Laterality Blood, Capillary BLOOD SPECIMEN / 09/21/2021 2:07 02/08/2021 2:13 Unknown AM BOILER MECHANIC AM BOILER MECHANIC Jian Dunn MD LAB - BEAKER POCT Performing Organization Address City/State/ZIP Code Ph[place] [address] Care Lab [address] Lab (1st floor, no room number) (ABNORMAL) Glucose by meter (09/21/2021 12:09 AM BOILER MECHANIC) P athologist Signature GLUCOSE BY 170 (H) 70 - 99 09/21/2021 RH LABORATORY METER POCT mg/dL 12:16 AM BOILER MECHANIC POC Specimen (Source) Anatomical Collection Method Collection Time Re ceived Time Location / / Volume Laterality Blood, Capillary BLOOD SPECIMEN / 09/21/2021 12:09 06/2022 Unknown AM BOILER MECHANIC 12:16 AM BOILER MECHANIC Jian CHENG - JOLENE POCT Performing Organization Address City/[facility]/ZIP Code Ph[place] [address] Care Lab [address] Lab (1st floor, no room number) (ABNORMAL) Glucose by meter (09/20/2021 9:31 PM BOILER MECHANIC) P athologist Signature GLUCOSE BY 169 (H) 70 - 99 09/20/2021 RH LABORATORY METER POCT mg/dL 9:37 PM BOILER MECHANIC POC Specimen (Source) Anatomical Collection Method Collection Time Re ceived Time Location / / Volume Laterality Blood, Capillary BLOOD SPECIMEN / 09/20/2021 9:31 02 9:37 Unknown PM BOILER MECHANIC PM BOILER MECHANIC Jian FERNÁNDEZ POCT Performing Organization Address [facility]/ZIP Code Phon [place] [address] Care Lab [address] Lab (1st floor, no room number) (ABNORMAL) Glucose by meter (09/20/2021 6:59 PM BOILER MECHANIC) athologist Signature GLUCOSE BY 175 (H) 70 - 99 09/20/2021 RH LABORATORY METER POCT mg/dL 7:06 PM BOILER MECHANIC POC Specimen (Source) Anatomical Collection Method Collection Time Re ceived Time Location / / Volume Laterality Blood, Capillary BLOOD SPECIMEN / 09/20/2021 6:59 02 7:06 Unknown PM BOILER MECHANIC PM BOILER MECHANIC Jian FERNÁNDEZ POCT Performing Organization Address City/[facility]/ZIP Code Ph[place] [address] Care Lab [address] Lab (1st floor, no room number) (ABNORMAL) Glucose by meter (09/20/2021 5:45 PM BOILER MECHANIC) P athologist Signature GLUCOSE BY 157 (H) 70 - 99 09/20/2021 LABORATORY METER POCT mg/dL 5:52 PM BOILER MECHANIC POC Specimen (Source) Anatomical Collection Method Collection Time Re ceived Time Location / / Volume Laterality Blood, Capillary BLOOD SPECIMEN / 09/20/2021 5:45 02/ 5:52 Unknown PM BOILER MECHANIC PM BOILER MECHANIC Jian Dunn MD LAB - [facility] POCT Performing Organization Address City/State/ZIP Code Phon [place] [address] [facility] [address] [facility], no room number) Asymptomatic COVID-19 Virus (Coronavirus) by PCR Nasopharyngeal (09/20/2021 2:42 PM BOILER MECHANIC) Analysis Performed At Patho logist Time Signature SARS CoV2 PCR Negative Negative 09/20/2021 LABORATORY 3:14 PM BOILER MECHANIC Comment: NEGATIVE: SARS-CoV-2 (COVID-19) RNA not detected, presumed negative. Specimen Anatomical Location / Collection Method Collection Michael e Received Time (Source) Laterality / Volume Swab NASOPHARYNGEAL Non-blood 09/20/2021 2:42 09/20/2021 2:48 STRUCTURE / Unknown Collection / PM BOILER MECHANIC PM BOILER MECHANIC Unknown Narrative LABORATORY - 09/20/2021 3:14 PM BOILER MECHANIC Testing was performed using the amanuel?? SARS-CoV-2 [...] exposure or clinical presentation sugges ts COVID-19. ??[facility] are certified under the Clinical Laborat ory Improvement Amendments of 1988 (CLIA-88) as qualified to perform moderate and/or high complexity laboratory testing. Jian Dunn MD LAB - MICRO GENERAL ORDERABL ES Performing Organization Address City/State/ZIP Code [place] [address] Care Lab [address] [facility] Lab (1st floor, no room number) Group B strep PCR (09/20/2021 2:42 PM BOILER MECHANIC) [facility] Time Signature Group B Strep Negative Negative 09/21/2021 [facility] PCR 6:10 PM BOILER MECHANIC LABORATORY Comment: Presumed negative for Streptoco ccus agalactiae (Group B Streptococcus) or the number of organisms may be below the limit of detection of the assay. Penicillin, amoxicillin, or No 09/21/2021 6 :10 PM BOILER MECHANIC [facility] cephalosporin allergy? Specimen Anatomical Location Collection Method Collection Time Received Time (Source) / Laterality / Volume Swab STRUCTURE OF Non-blood 09/20/2021 2:42 09/20/2021 2 :48 RECTOVAGINAL SEPTUM Collection / PM BOILER MECHANIC PM BOILER MECHANIC / Unknown Unknown Narrative [facility] - 09/21/2021 6:[address] The Cepheid Xpert GBS LB Assay, performe d on the [employer]?? [employer] Systems, is a qualitative in vitro [...] or monitor treatment for GBS infections. The CepAppGyverid Xpert GBS LB Ass ay is intended for use in hospital, reference or state laboratory settings. The device is not intended for [id number] use. Jian Dunn MD LAB - MICRO GENERAL ORDERABL ES Performing Organization Address City/[facility]/ZIP Code Phon e Number [facility] [place] [address] Diag. Lab [address], [address] [facility] Infectious [place], [place] [phone] Diseases Diagnostic [phone], [facility] Lab (IDDL) [address] [facility], [address] Maternal BPP Single (09/20/2021 2:01 PM BOILER MECHANIC) Anatomical Region Laterality Modality Ultrasound Specimen (Source) Anatomical Collection Method Collection Time Re ceived Time Location / / Volume Laterality 09/20/2021 1:34 PM BOILER MECHANIC Impressions 09/20/2021 5:41 PM BOILER MECHANIC IMPRESSION 1) Wolfe intrauterine at 3 4w 4d gestational age. 2) The BPP is reassuring. 3) The amniotic fluid volume appeared no rmal. Narrative 09/20/2021 5:41 PM BOILER MECHANIC BPP Pat. Name: MARCUS APARICIOHA Study Date: 09/20 1:34pm Pat. NO: [id number] Referring ??: IDALMIS CARIAS Site: [place] Motor Setter: Kylah Condon RDMS : 1995 Age: 26 [...] Pat. Name:Tamera APARICIO Date:09/20/19 1:34pm Pat. NO: [id number] :VALERIA CABALLERO [facility]achel Saavedra :1995Age:26 INDICATION Poorly controlled Type [...] volume appeared no rmal. Jian [facility] ORDERABLES (ABNORMAL) Wet preparation (09/20/2021 11:39 AM BOILER MECHANIC) Analysis Performed At Patho logist Time Signature Trichomonas Absent Absent LESLIE 09/20/2021 LABORATORY 12:08 PM BOILER MECHANIC Yeast Absent Absent LESLIE 09/20/2021 LABORATORY 12:08 PM BOILER MECHANIC Clue Cells Absent Absent LESLIE 09/20/2021 LABORATORY 12:08 PM BOILER MECHANIC WBCs/high power 1+ (A) None LESLIE 09/20/2021 LABORATORY field 12:08 PM BOILER MECHANIC Specimen Anatomical Collection Method Collection Time Receive d Time (Source) Location / / Volume Laterality Swab VAGINAL STRUCTURE Non-blood 09/20/2021 11:39 2021 / Unknown Collection / AM BOILER MECHANIC 11:42 AM BOILER MECHANIC Unknown Jian Dunn MD LAB - MICRO GENERAL ORDERABL ES Performing Organization Address City/State/ZIP Code [place] [address] [facility] [address] Lab (1st floor, no room number) (ABNORMAL) Protein random urine (09/20/2021 11:36 AM [employer]CH[employer]) P athologist Signature Total Protein 0.79 g/L 09/20/2021 LABORATORY Random Urine 12:09 PM [employer] g/L Comment: The reference range has not bee n established for total protein in random urine samples. ??The result should be in tegrated into the clinical context for interpretation. Total Protein Urine 0.51 (H) 0.00 - 0.20 g/g 09/20/2021 12: 09 PM LABORATORY g/gr Creatinine Cr [employer] Creatinine Urine mg/dL 156 mg/dL 09/20/2021 12:09 PM LABORATORY BOILER MECHANIC Specimen Anatomical Collection Method Collection Time Receive d Time (Source) Location / / Volume Laterality Urine MID-STREAM URINE Non-blood 09/20/2021 11:36 022 SPECIMEN / Unknown Collection / AM BOILER MECHANIC 11:42 AM BOILER MECHANIC Unknown Jian Dunn MD LAB - URINE ORDERABLES Performing Organization Address City/[facility]/ZIP Code [place] [address] Care Lab [address] Lab (1st floor, no room number) Uric acid (09/20/2021 11:36 AM BOILER MECHANIC) P athologist Signature Uric Acid 3.4 2.6 - 6.0 09/20/2021 [facility] LABORATORY mg/dL 11:59 AM BOILER MECHANIC Specimen Anatomical Collection Method / Collection Time Recei iva Time (Source) Location / Volume Laterality Blood STRUCTURE OF RIGHT Venipuncture / 09/20/2021 11:36 05/2022 UPPER LIMB / Unknown AM BOILER MECHANIC 11:39 AM BOILER MECHANIC Unknown Jian Dunn MD LAB - BLOOD ORDERABLES Performing Organization Address City/[facility]/ZIP [facility] [place] [address] Care Lab [address] Lab (1st floor, no room number) (ABNORMAL) Comprehensive metabolic panel (09/20/2021 11:36 AM BOILER MECHANIC) Patholo gist Method Time Signature Sodium 138 133 - 144 09/20/2021 LABORATORY mmol/L 11:59 AM BOILER MECHANIC Potassium 4.0 3.4 - 5.3 09/20/2021 [facility] LABORATORY mmol/L 11:59 AM BOILER MECHANIC Chloride 111 (H) 94 - 109 09/20/2021 LABORATORY mmol/L 11:59 AM BOILER MECHANIC Carbon Dioxide 22 20 - 32 09/20/2021 LABORATORY (CO2) mmol/L 11:59 AM BOILER MECHANIC Anion Gap 5 3 - 14 09/20/2021 LABORATORY mmol/L 11:59 AM BOILER MECHANIC Urea Nitrogen 10 7 - 30 09/20/2021 LABORATORY mg/dL 11:59 AM BOILER MECHANIC Creatinine 0.40 (L) 0.52 - 09/20/2021 LABORATORY 1.04 11:59 AM BOILER MECHANIC mg/dL Calcium 8.7 8.5 - 09/20/2021 LABORATORY 10.1 11:59 AM BOILER MECHANIC mg/dL Glucose 114 (H) 70 - 99 09/20/2021 LABORATORY mg/dL 11:59 AM BOILER MECHANIC Alkaline 102 40 - 150 09/20/2021 LABORATORY Phosphatase U/L 11:59 AM BOILER MECHANIC AST 13 0 - 45 09/20/2021 LABORATORY U/L 11:59 AM BOILER MECHANIC ALT 14 0 - 50 09/20/2021 LABORATORY U/L 11:59 AM BOILER MECHANIC Protein Total 6.4 (L) 6.8 - 8.8 09/20/2021 LABORATORY g/dL 11:59 AM BOILER MECHANIC Albumin 2.1 (L) 3.4 - 5.0 09/20/2021 LABORATORY g/dL 11:59 AM BOILER MECHANIC Bilirubin Total 0.1 (L) 0.2 - 1.3 09/20/2021 LABORATORY mg/dL 11:59 AM BOILER MECHANIC GFR Estimate >90 >60 09/20/2021 LABORATORY mL/min/1. 11:59 AM BOILER MECHANIC 73m2 Comment: Effective July 31, 2021 eGF Rcr in adults is calculated using the 2020 CKD-EPI creatinine equation which includ es age and gender (Angelika et al., NEJ, DOI: 10.1056/GEQIdp6425494) Specimen Anatomical Collection Method / Collection Time Recei iva Time (Source) Location / Volume Laterality Blood STRUCTURE OF RIGHT Venipuncture / 09/20/2021 11:36 05/2022 UPPER LIMB / Unknown AM BOILER MECHANIC 11:39 AM BOILER MECHANIC Unknown Jian Dunn MD LAB - BLOOD ORDERABLES Performing Organization Address City/State/ZIP Code [place] [address] Care Lab [address] Lab (1st floor, no room number) (ABNORMAL) CBC with platelets (09/20/2021 11:36 AM BOILER MECHANIC) [facility] gist Method Time Signature WBC Count 8.6 4.0 - 11.0 09/20/2021 RH LABORATORY 10e3/uL 11:41 AM BOILER MECHANIC RBC Count 4.20 3.80 - 09/20/2021 [facility] LABORATORY 5.20 11:41 AM BOILER MECHANIC 10e6/uL Hemoglobin 9.7 (L) 11.7 - 09/20/2021 [facility] LABORATORY 15.7 g/dL 11:41 AM BOILER MECHANIC Hematocrit 32.8 (L) 35.0 - 09/20/2021 [facility] LABORATORY 47.0 % 11:41 AM BOILER MECHANIC MCV 78 78 - 100 09/20/2021 [facility] LABORATORY fL 11:41 AM BOILER MECHANIC MCH 23.1 (L) 26.5 - 09/20/2021 [facility] LABORATORY 33.0 pg 11:41 AM BOILER MECHANIC MCHC 29.6 (L) 31.5 - 09/20/2021 [facility] LABORATORY 36.5 g/dL 11:41 AM BOILER MECHANIC RDW 15.2 (H) 10.0 - 09/20/2021 [facility] LABORATORY 15.0 % 11:41 AM BOILER MECHANIC Platelet Count 234 150 - 450 09/20/2021 [facility] LABORATORY 10e3/uL 11:41 AM BOILER MECHANIC Specimen Anatomical Collection Method / Collection Time Recei iva Time (Source) Location / Volume Laterality Blood STRUCTURE OF RIGHT Venipuncture / 09/20/2021 11:36 05/2022 UPPER LIMB / Unknown AM BOILER MECHANIC 11:39 AM BOILER MECHANIC Unknown Jian Dunn MD LAB - BLOOD ORDERABLES Performing Organization Address City/State/ZIP Code [place] [address] [facility] [address] [facility] (1st [facility], no room number) (ABNORMAL) Glucose by meter (09/20/2021 11:17 AM BOILER MECHANIC) P athologist Signature GLUCOSE BY 122 (H) 70 - 99 09/20/2021 LABORATORY METER POCT mg/dL 11:24 AM BOILER MECHANIC POC Specimen (Source) Anatomical Collection Method Collection Time Re ceived Time Location / / Volume Laterality Blood, Capillary BLOOD SPECIMEN / 09/20/2021 11:17 05/2022 Unknown AM BOILER MECHANIC 11:24 AM BOILER MECHANIC Jian Dunn MD LAB - BEAKER POCT Performing Organization Address City/State/ZIP Code [place] [address] Care Lab [address] [facility] Lab (1st floor, no room number) documented [...] acetaminophen (TYLENOL) tablet Given 09/24/2021 11:29 AM BOILER MECHANIC 975 mg 975 mg 975 mg, Oral, EVERY 6 HOURS, First dose on Fri09/21/21 at 1730, Maximum acetaminophen dose from all sources = 75 mg/kg/day not to exceed 4 grams/day. Given 09/24/2021 2:32 AM BOILER MECHANIC 975 mg Given 09/23/2021 7:13 PM BOILER MECHANIC 975 mg calcium gluconate 10 % injection [...] tablet 800 mg Given 09/24/2021 11:29 AM BOILER MECHANIC 800 mg 800 mg, Oral, EVERY 6 HOURS, First dose on 09/22/21 at 1700, Give with food. Given 09/24/2021 2:32 AM BOILER MECHANIC 800 mg Given 09/23/2021 7:13 PM BOILER MECHANIC 800 mg insulin aspart (NovoLOG) injection (RAPID Given 09/23/2021 9:54 PM BOILER MECHANIC 1 Units ACTING) 1-7 Units, Subcutaneous, 3 [...] start of meal. Given 09/23/2021 5:10 PM BOILER MECHANIC 1 Units Given 09/22/2021 8:58 PM BOILER MECHANIC 2 Units insulin aspart (NovoLOG) injection (RAPI [...] injection (RAPID Given 09/24/2021 1 2:57 PM BOILER MECHANIC 7 Units ACTING) Subcutaneous, 3 TIMES DAILY BEFORE MEALS, First dose on 09/22/21 at 1700, Dose = 1 units per 15 grams of carbohydate. If given at mealtime, administer within 30 minutes of start of meal. Given 09/23/2021 9:54 PM BOILER MECHANIC 5 Units Given 09/23/2021 5:11 PM BOILER MECHANIC 5 Units insulin NPH injection 10 Units Given 09/23/2021 5:13 PM BOILER MECHANIC 10 Units 10 Units, Subcutaneous, DAILY WITH SUPPER, First dose on 09/23/21 at 1700 insulin NPH injection 15 Units 15 Units, Subcutaneous, EVERY MORNING BE FORE BREAKFAST, First dose on Fri09/24/21 at 0730 labetalol (NORMODYNE/TRANDATE) algorithm -medication instruction CONTINUOUS PRN, Starting on Fri09/21/21 at 1344, Until Fri09/24/21 at 1529 labetalol (NORMODYNE/TRANDATE) injection 20-80 Given 0 09/21/2021 1:50 PM BOILER MECHANIC 20 mg mg 20-80 mg, Intravenous, EVERY [...] ringers infusion New Bag 09/22/2021 1:06 AM BOILER MECHANIC 75 mL/hr 75 mL/hr at 10-125 mL/hr, [...] sulfate infusion New Bag 09/22/2021 9:18 AM BOILER MECHANIC 2 g/hr 50 mL/hr 2 g/hr (50 [...] pre-term labor. New Bag 09/21/2021 2:36 PM BOILER MECHANIC 2 g/hr 50 mL/hr magnesium sulfate injection [...] tablet 5-10 mg Given 09/24/2021 11:30 AM BOILER MECHANIC 5 mg 5-10 mg, Oral, EVERY 4 HOURS PRN, other, pain control or improvement in physical function. Hold dose for analgesic side effects., Starting on Fri09/21/21 at 1720, Notify provider to assess for uncontrolled pain or analgesic side effects. Hold while on PRIVATE PILOT or with regular IV opioid dosing. Maximum total is 60 mg in 24 hours. Given 09/23/2021 9:52 PM BOILER MECHANIC 5 mg Given 09/21/2021 9:45 PM BOILER MECHANIC 5 mg prochlorperazine (COMPAZINE) injection 1 0 [...] for loose stools. Given 09/21/2021 9:46 PM BOILER MECHANIC 1 tablet senna-docusate (SENOKOT-S/PERICOLACE) 8. 6-50 MG per tablet 2 tablet 2 tablet, Oral, 2 TIMES DAILY, First dos e on Fri09/21/21 at 2100, Hold for loose stools. Preferred agent for constipation related to opioids. Hold for loose stools. sodium chloride (PF) 0.9% PF flush 3 mL Given 09/24/2021 2:20 AM BOILER MECHANIC 3 mLs 3 mL, Intracatheter, EVERY 8 HOURS, First dose on Fri09/21/21 at 1730, to lock peripheral IV dormant line Given 09/22/2021 3:11 PM BOILER MECHANIC 3 mLs Given 09/22/2021 9:25 AM BOILER MECHANIC 3 mLs sodium chloride 0.9% (bottle) irrigation Given 09/21/2021 3:40 PM BOILER MECHANIC 750 mLs PRN, Starting on Fri09/21/21 at 1540, Anesthesia Intra-op documented in this encounter Active and Recently Administered Medications Times are shown in BOILER MECHANIC. Scheduled Medication Order 09/22/2021 09/23/2021 09/24/2021 acetaminophen [...] 10 Units (CANCELED) 0919 (Given - Provider: Ayn Ruiz RN)2056 (Given - Provider: Judie Ochoa [...] arreguin RN)1205 (Canceled Entry - Provider: Deandra Taylor RN) 3 mL, Intracatheter, EVERY 8 HOURS, [...] or analgesic side effects. Hold while on PRIVATE PILOT or with regular IV opioid dosing. Maximum [...] after each naloxone dose. Consider transfer to [facility] if patient respiratory parameters hav e not [...] provider.
documented in this encounter Care Teams Fixed Income Portfolio Manager Relationship Specialty Start Date End Date MD Jeanette Endocrinology, 08/29/21 MD Hermelinda Diabetes, and [address] [facility] Metabolism [address] [place] [address] Radha Reid Endocrinology 09/09/21 MD Hermelinda Provider [address] [id number] documented as of this encounter
--- OUTSIDE RECORDS SUMMARY | 2022-07-12 21:19 | XMS_ITS | Encounter Summary ---
:1995 Author Organization [place] Address [address] [place] [address] Care Team Providers Name Role Phone Hermelinda Reid MD Unavailable [phone] Hermelinda Reid MD Unavailable [phone] Reason for Visit Reason Onset Date Comments *-*INCOMING RECORDS*-* 09/10/2021 Encounter Details Date Type Department Care Team Description 09/10/2021 Telephone [facility] Women's None *- *INCOMING RECORDS*-* Clinic [address] [facility] [address] [place] [address] Social History Tobacco Use Types Packs/Day Years Used Date Smoking Tobacco: Never Smokeless Tobacco: Never Alcohol Use Standard Drinks/Week Comments Not Currently 0 (1 standard drink = 0.6 oz pure alcoho l) Sex Assigned at Date Recorded Female 09/11/2021 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 documented as of this encounter Miscellaneous Notes Telephone Encounter - Em Fairchild RN - 09/14/2021 9:53 AM CST Copy of updated records placed in Dr Torrez's inbasket. Em Fairchild RN ONAL DEDICATED TRUCK DRIVER Telephone Encounter - Alisia Sullivan - 09/10/2021 3:39 PM CST Received previous records from [facility]. Put a copy on tirage desk (Em). Sent originals to scanning. ONAL DEDICATED TRUCK DRIVER documented in this encounter Plan of Treatment Upcoming Encounters Date Type Specialty Care Team Description 07/26/2022 Appointment Radiology. Dion Ramirez MD [address] [place] [address] Liliana Wright MD [address] [facility] [address] [place], [place] [address] 07/26/2022 Office Visit Maternal and Dion Ramirez MD [address] [place], [place] [address] [phone] Liliana Wright MD [address] [facility] [address] [place], [place] [address] 08/13/2022 Appointment Cardiology Dion Ramirez MD [address] [place], [place] [address] (Wo rk) documented as of this encounter Visit Diagnoses Not on filedocumented in this encounter Care Teams Safety Specialist Relationship Specialty Start Date End Date MD Jeanette Endocrinology, 08/29/21 MD Hermelinda Diabetes, and [address] [place] [address] [facility] Metabolism [address] [place], [place] [address] Radha Reid Endocrinology 09/09/21 MD Hermelinda Provider [address] [place] [address] [facility] [address] [place], [place] [phone] documented as of this encounter
--- OUTSIDE RECORDS SUMMARY | 2022-07-12 21:19 | XMS_ITS | Encounter Summary ---
:1995 Author Organization [place] Address [address] [place] [address] Care Team Providers Name Role Phone Hermelinda Reid MD Unavailable [phone] Hermelinda Reid MD Unavailable [phone] Reason for Visit Reason Onset Date Comments Care 09/10/2021 Encounter Details Date Type Department Care Team Description 09/10/2021 Telephone [facility] Wakafrancisco Archer MD [address] 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 documented as of this encounter Miscellaneous Notes Telephone Encounter - Em Fairchild RN - 09/12/2021 11:07 AM CST Copied from providers routing comment; I think the scheduled appointments are OK. Dr. Dunn P HOME MANAGER Telephone Encounter - Em Fairchild RN - 09/12/2021 9:50 AM CST I did not realize Dr Torrez was out this week. Forwarding previous message on to provider milk wagon driver to review. Em Fairchild RN P HOME MANAGER Telephone Encounter - Em Fairchild RN - [...] to be seen sooner. Em Fairchild RN P HOME MANAGER documented in this encounter Plan of Treatment Upcoming Encounters Date Type Specialty Care Team Description 07/26/2022 Appointment Radiology. Dion Ramirez MD [address] [place] [address] Liliana Wright MD [address] [facility] [address] [place], [place] [address] 07/26/2022 Office Visit Maternal and Dion Ramirez MD [address] [place] [address] Medicine Liliana Wright MD [address] [facility] [address] [place], [place] [address] 08/13/2022 Appointment Cardiology Dion Ramirez MD [address] [place] [address] (Wo rk) documented as of this encounter Visit Diagnoses Not on filedocumented in this encounter Care Teams Pace Analyst Relationship Specialty Start Date End Date MD Jeanette Endocrinology, 08/29/21 MD Hermelinda Diabetes, and [address] [place] [address] [facility] Metabolism [address] [place] [address] Radha Reid Endocrinology 09/09/21 MD Hermelinda Provider [address] [facility] 101 [place], [place] [phone] documented as of this encounter
--- OUTSIDE RECORDS SUMMARY | 2022-07-12 21:19 | XMS_ITS | Encounter Summary ---
:1995 Author Organization [place] Address [address] [place] [address] Care Team Providers Name Role Phone Hermelinda Reid MD Unavailable Hermelinda Reid MD Unavailable [phone] Encounter Details Date Type Department Care Team Description 09/17/2021 Orders Only [facility] Valeria Bey MD Type 2 diabetes mellitus (H) (Primary Dx ); [facility] [address] High-risk , unspecified trimest er [place], [place] [address] [address] [place] [address] [place] [address] Social History Tobacco Use Types Packs/Day Years Used Date Smoking Tobacco: Never Smokeless Tobacco: Never Alcohol Use Standard Drinks/Week Comments Not Currently 0 (1 standard drink = 0.6 oz pure alcoho l) Sex Assigned at Date Recorded Female 09/11/2021 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 documented as of this encounter Miscellaneous Notes Addendum Note - Em Fairchild RN - 09/17/2021 2:53 PM MARINE PILOT Addended by: EM FAIRCHILD on: 09/20/2021 10:29 AM Modules accepted: Orders NE PILOT documented in this encounter Plan of Treatment Upcoming Encounters Date Type Specialty Care Team Description 07/26/2022 Appointment Radiology. Dion Ramirez MD [address] [place] [address] Liliana Wright MD [address] [place] [facility] 395 [place], [place] [phone] 07/26/2022 Office Visit Maternal and Dion Ramirez MD [address] [place], [place] [address] Medicine Liliana Wright MD [address] [place] [address] [facility] 395 [place], [place] [address] 08/13/2022 Appointment Cardiology Dion Ramirez MD [address] [place], [place] [address] (Wo rk) documented as of this encounter Visit Diagnoses Diagnosis Type 2 diabetes mellitus (H) - Primary Type II or unspecified type diabetes jo-ann litus without mention of complication, not stated as uncontrolled High-risk , unspecified trimest er documented in this encounter Care Teams Bilingual Call Center Representative Relationship Specialty Start Date End Date MD Jeanette Endocrinology, 08/29/21 MD Hermelinda Diabetes, and [address] [facility] Metabolism [address] [place], [place] [address] Radha Reid Endocrinology 09/09/21 MD Hermelinda Provider [address] [facility] 101 [place] [address] documented as of this encounter
--- OUTSIDE RECORDS SUMMARY | 2022-07-12 21:19 | XMS_ITS | Encounter Summary ---
:1995 Author Organization [place] Address [address] [facility] [place] [address] Care Team Providers Name Role Phone Hermelinda Reid MD Unavailable [phone] Hermelinda Reid MD Unavailable [phone] Encounter Details Date Type Department Care Team Description 09/20/2021 Office [facility] Lore Son No Show Visit [facility] MD Gianni [place] [address] [facility] [address] [place] [address] [address] [place] [address] Social History Tobacco Use Types Packs/Day Years Used Date Smoking Tobacco: Never Smokeless Tobacco: Never Alcohol Use Standard Drinks/Week Comments Not Currently 0 (1 standard drink = 0.6 oz pure alcoho l) Sex Assigned at Date Recorded Female 09/11/2021 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 documented as of this encounter Plan of Treatment Upcoming Encounters Date Type Specialty Care Team Description 07/26/2022 Appointment Radiology. Dion Ramirez MD [address] [facility] 400 [place] [address] Liliana Wright MD 420 [facility] 395 [place] [address] 07/26/2022 Office Visit Maternal and Dion Ramirez MD [address] [place], [place] [address] Medicine Lliiana Wright MD [address] [facility] 395 [place], [place] [address] 08/13/2022 Appointment Cardiology Dion Ramirez MD [address] [place], [place] [phone] (Wo rk) documented as of this encounter Visit Diagnoses Not on filedocumented in this encounter Care Teams Kitchen Runner Relationship Specialty Start Date End Date MD Jeanette Endocrinology, 08/29/21 MD Hermelinda Diabetes, and [address] [place] [address] [facility] Metabolism 101 [place], [place] [address] Radha Reid Endocrinology 09/09/21 MD Hermelinda Provider [address] [place] [address] [facility] 101 [place], [place] [address] documented as of this encounter
--- OUTSIDE RECORDS SUMMARY | 2022-07-12 21:19 | XMS_ITS | Encounter Summary ---
:1995 Author Organization [facility] Address [address] [place] [address] Care Team Providers Name Role Phone Hermelinda Reid MD Unavailable [phone] Hermelinda Reid MD Unavailable [phone] Reason for Visit Reason Comments Diabetes Encounter Details Date Type Department Care Team Description 09/14/2021 Virtual Visit [facility] Jeanette, Type 2 diabetes Endocrinology Clinic MD Hermelinda mellitus with [address] hyperglycemia, [address] [facility] [address] [facility] [address] without long-term 3rd Floor [place], [place] [address] insulin (H) (Primary [address] Dx) Social History Tobacco Use Types Packs/Day Years Used Date Smoking Tobacco: Never Smokeless Tobacco: Never Alcohol Use Standard Drinks/Week Comments Not Currently 0 (1 standard drink = 0.6 oz pure alcoho l) Sex Assigned at Date Recorded Female 09/11/2021 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 documented as of this encounter Progress Notes Mily Kingston - 09/14/2021 12:20 PM CST Outcome for 09/12/21 11:01 AM: Laiyaoyaot message sent MARIPOSA Low Outcome for 09/13/21 9:47 AM: Left Voicemail MARIPOSA Baez Outcome for 09/13/21 1:18 PM: Left Amyil MARIPOSA Baez RACKER Hermelinda Reid MD - 09/14/2021 10:50 AM CST Images from the original note were not included. Endocrinology Note Valery is a 26 year old female presents today for pre-exising type 2 diabetes in HPI Valery is a 26 year old female presents today for pre-exising type 2 diabetes in She is curren with PAYTON 10/28/21 who is 33 weeks and being evaluated for type 2 diabetes in . She is seen today today for poorly controlled type 2 diabetes. She was diagnosed with type 2 diabetes in 6.5-8.3%. Prior to she was on metformin 500 mg bid x2 years. The pt has seen Dr Rocha an Electronic Prepress System Operator earlier in the for diabetes management [...] of Diabetes and Endocrinology Department of Medicine [phone] RACKER Hermelinda Reid MD - 09/14/2021 10:50 AM CST Patient boyfriend states BG has been ranging 130-150, and this morning BG level at 91 Valery is a 26 year old who is being evaluated via a billable video visit. How would you like to obtain your AVS? MyChart If the video visit is dropped, the invitation should be resent by: Text to cell phone: [phone] Will anyone else be joining your video visit? partner Video-Visit Details Type of service: Video Visit Originating Location (pt. Location): Home Distant Location (provider location): [facility] Platform used for Video Visit: [facility] RACKER documented in this encounter Plan of Treatment Upcoming Encounters Date Type Specialty Care Team Description 07/26/2022 Appointment Radiology. Dion Ramirez MD [address] [place], [place] [address] Liliana Wright MD [address] [phone] 07/26/2022 Office Visit Maternal and Dion Ramirez MD [address] [place], [place] [address] Medicine Liliana Wright MD [address] [address] 08/13/2022 Appointment Cardiology Dion Ramirez MD [address] [place], [place] [address] (Wo rk) documented as of this encounter Visit Diagnoses Diagnosis Type 2 diabetes mellitus with hyperglyce ashu, without long-term current use of insulin (H) - Primary documented in this encounter Care Teams Varsity Baseball Coach Relationship Specialty Start Date End Date MD Jeanette Endocrinology, 08/29/21 MD Hermelinda Diabetes, and [address] [place] [address] [facility] Metabolism [address] [place] [address] Radha Reid Endocrinology 09/09/21 MD Hermelinda Provider [address] [facility] 101 [place] [address] documented as of this encounter
--- OUTSIDE RECORDS SUMMARY | 2022-07-12 21:19 | XMS_ITS | Encounter Summary ---
:1995 Author Organization [facility] Address [address] [place] [address]. [place] [address] Care Team Providers Name Role Phone Hermelinda Reid MD Unavailable [phone] Hermelinda Reid MD Unavailable [phone] Reason for Visit Reason Comments Diabetes Patient Education (Routine: Next available opening) - Closed Specialty Diagnoses / Procedures Referred By Contact Refer red To Contact Diabetes Education Diagnoses Type 2 diabetes mellitus (H) High-risk , unspecified trimester Valeria Bey MD [facility] [address] [facility] [place] [address] [place] [address] [place] [address] Phone: Referral ID Status Reason Start Date Expiration Date Visits Requ ested Visits Authorized [id number] Closed 08/28/2021 08/28/2022 1 1 Encounter Details Date Type Department Care Team Description 09/17/2021 Virtual Visit [facility] Carli Sterling, Typ e 2 diabetes mellitus (H); Clinic [address] High-risk , unspecified trimest er [address] [facility] [address] [place], [place] [address] [facility] [address] [facility] [phone] [place] [address] Social History Tobacco Use Types Packs/Day Years Used Date Smoking Tobacco: Never Smokeless Tobacco: Never Alcohol Use Standard Drinks/Week Comments Not Currently 0 (1 standard drink = 0.6 oz pure alcoho l) Sex Assigned at Date Recorded Female 09/11/2021 7:15 AM STORY READER COVID-19 Exposure Response Date Recorded In the last month, have you been in contact with No / Unsure 09/14/2021 8:37 AM STORY READER someone who was confirmed or suspected to [...] 2 weeks. Will have schedulers reach out. Y READER documented in this encounter Progress Notes Carli [...] Worsening Other concerns:: None Cultural Influences/Ethnic Background: Greek Diabetes Symptoms & Complications Complications assessed today?: [...] section for recommended follow-up. Carli Sterling RDN [facility] Time Spent: 22 minutes Encounter Type: Individual Any diabetes medication dose changes were made via the CDE Protocol and Collaborative Practice Agreement with the patient's referring provider. A copy of this encounter was shared with the provider. FOLLOW-UP: Follow up with early childhood educator aide in 2 weeks. Y READER documented in this encounter Plan of Treatment Upcoming Encounters Date Type Specialty Care Team Description 07/26/2022 Appointment Radiology. Dion Ramirez MD [address] [place], [place] [address] Liliana Wright MD [address] [facility] [address] [place], [place] [address] 07/26/2022 Office Visit Maternal and Dion Ramirez MD [address] [place], [place] [address] Medicine Liliana Wright MD [address] [place] [address] [facility] [address] [place], [place] [address] 08/13/2022 Appointment Cardiology Dion Ramirez MD [address] [place], [place] [address] (Wo rk) documented as of this encounter Visit Diagnoses Diagnosis Type 2 diabetes mellitus (H) Type II or unspecified type diabetes jo-ann litus without mention of complication, not stated as uncontrolled High-risk , unspecified trimest er documented in this encounter Care Teams Commercial Real Estate Lender Relationship Specialty Start Date End Date MD Jeanette Endocrinology, 08/29/21 MD Hermelinda Diabetes, and [address] [facility] Metabolism 101 [place], [place] [address] Radha Reid Endocrinology 09/09/21 MD Hermelinda Provider [address] [facility] [address] [place], [place] [address] documented as of this encounter
--- OUTSIDE RECORDS SUMMARY | 2022-07-12 21:19 | XMS_ITS | Encounter Summary ---
:1995 Author Organization [place] Address [address] [place] [address] Care Team Providers Name Role Phone Hermelinda Reid MD Unavailable [phone] Hermelinda Reid MD Unavailable [phone] Reason for Referral Diagnostic Imaging Ultrasound (Routine) - Pending Review Specialty Diagnoses / Procedures Referred By Contact Refer red To Contact Diagnoses related condition, antepartum Teresa Procedures [facility] Hans Pillai MD [facility] [address] [place] [address] Referral ID Status Reason Start Date Expiration Date Visits V isits Requested Authorized [id number] Pending 09/02/2021 09/02/2022 1 1 Review SERVICE TECHNICIAN Reason for Visit Diagnostic Imaging Ultrasound (Routine) - Pending Review Specialty Diagnoses / Procedures Referred By Contact Refer red To Contact Diagnoses related condition, antepartum Teresa, Procedures [facility] Hans Pillai MD [facility] [address] [place] [address] Referral ID Status Reason Start Date Expiration Date Visits V isits Requested Authorized [id number] Pending 09/02/2021 09/02/2022 1 1 Review Encounter Details Date Type Department Care Team Description 09/14/2021 Hospital Encounter [facility] Freya Graham MD [address] [place] [address] related Maternal Lisandra Casanova MD [address] [place], [place] [address] condition, Medicine Center antepartum [place] [address] [place] [address] Social History Tobacco Use Types Packs/Day Years Used Date Smoking Tobacco: Never Smokeless Tobacco: Never Alcohol Use Standard Drinks/Week Comments Not Currently 0 (1 standard drink = 0.6 oz pure alcoho l) Sex Assigned at Date Recorded Female 09/11/2021 7:15 AM TIRE SERVICE TECHNICIAN COVID-19 Exposure Response Date Recorded In the last month, have you been in contact with No / Unsure 09/14/2021 8:37 AM TIRE SERVICE TECHNICIAN someone who was confirmed or suspected to [...] results and recommendations reviewed. Valeria Bey MD SERVICE TECHNICIAN documented in this encounter Plan of Treatment Upcoming Encounters Date Type Specialty Care Team Description 07/26/2022 Appointment Radiology. Dion Ramirez MD [address] [place], [place] [address] Liliana Wright MD 420 [facility] 395 [place], [place] [address] 07/26/2022 Office Visit Maternal and Dion Ramirez MD [address] [place] [address] Medicine Liliana Wright MD [address] [address] 08/13/2022 Appointment Cardiology Dion Ramirez MD [address] [place], [place] [phone] (Wo rk) documented as of this encounter Procedures Procedure Name Priority Date/Time Associated Comments Diagnosis MFM US COMPREHENSIVE Routine 09/14/2021 9:43 AM rela sinan Results for this SINGLE TIRE SERVICE TECHNICIAN condition, procedure are i n antepartum the results section. documented in this encounter Results M US Comprehensive Single (09/14/2021 9:43 AM TIRE SERVICE TECHNICIAN) Anatomical Region Laterality Modality Ultrasound Specimen (Source) Anatomical Collection Method Collection Time Re ceived Time Location / / Volume Laterality 09/14/2021 8:47 AM TIRE SERVICE TECHNICIAN Impressions 09/14/2021 2:34 PM TIRE SERVICE TECHNICIAN IMPRESSION REVISED REPORT 1) Wolfe intrauterine at [...] BPP is reassuring. Narrative 09/14/2021 2:34 PM TIRE SERVICE TECHNICIAN Comprehensive Pat. Name: BEATRIZ APARICIO Study Date: 09/14 8:47am Pat. NO: [id number] Referring ??: IDALMIS BEY Site: [facility] Provider: Kylah Condon RDMS : 1995 Age: 26 [...] Biometry: BPD ?84.6 ?mm ? 34w 1d ?Hadebtzy HUSSEIN ?109.9 ?mm ? 33w 0d ? Nicolaides HC ?310.3 ?mm ?34w 5d ?Hadlock Cerebellum tr ?43.4 ? mm ?37w 3d ?Nicolaides AC ?313.6 ?mm ?35w 2d ?90% ?Hadlock Femur ?64.6 ? mm ?33w 2d ?Hadlock Humerus ?56.2 ?mm ? 32w 5d ?Aman Weight Calculation: EFW ? 2,465 ?g ? 69% ?Hadlock EFW (lb,oz) ? 5 lb 7 ?oz EFW by ?Hadlock ([id number]) Head / Face / Neck Biometry: Fuel Cell Designer ? 3.9 ? mm CM ?8.3 [...] Heart / Thorax ?4-chamber view. 3-vessel view. 9-erovnk-etwgdpa view. Extremities / Skeleton ?Lef t foot. [...] rasound with the patient. [facility] and a repeat assessment of growth has also been scheduled here in 3 weeks. Timing of delivery dependent on degree of glucose control and if Beatriz's DM continues to be poorly controlled, delivery is recommended at 36-38 weeks. She is planning transfer of care to [facility] Ob-Fire Apparatus Sprinkler Inspector in anticipation of delivery at [facility]. Return to primary provider for continued care. [...] Pat. Name:Tamera APARICIO Date:09/14/19 8:47am Pat. NO: [id number] MD:VALERIA ACBALLERO [facility]achel Saavedra :1995Age:26 INDICATION Poorly [...] 5 lb 7 oz EFW by Hadlock ([id number]) Head / Face / Neck Biometry: Fuel Cell Designer 3.9 mm CM 8.3 mm ANATOMY [...] Heart / Thorax 4-chamber view. 3-vessel view. 6-gzmktg-jqbjlfo view. Extremities / Skeleton Left foot. The [...] She is planning transfer of care to [facility] Ob-Fire Apparatus Sprinkler Inspector in anticipation of delivery at [facility]. Return to primary provider for continued care. [...] The BPP is reassuring. Freya Moore MD [facility] US ORDERABLES documented in this encounter Visit Diagnoses Diagnosis related condition, antepartum documented in this encounter Care Teams Senior Oracle Soa Developer Relationship Specialty Start Date End Date MD Jeanette Endocrinology, 08/29/21 MD Hermelinda Diabetes, and [address] [facility] Metabolism [address] [place] [address] Radha Reid Endocrinology 09/09/21 MD Hermelinda Provider [address] [address] documented as of this encounter
--- OUTSIDE RECORDS SUMMARY | 2022-07-12 21:19 | XMS_ITS | Encounter Summary ---
:1995 Author Organization [facility] Address [address] [place] [address] Care Team Providers Name Role Phone Hermelinda Reid MD Unavailable [phone] Hermelinda Reid MD Unavailable [phone] Lurdes Echeverria MD Unavailable Dalia Ervin MD Unavailable No Ref-Primary, Physician Primary Care Provider Lore Son MD Unavailable [phone] Reason for Visit Reason Onset Date Comments Referral 09/17/2021 Encounter Details Date Type Department Care Team Description 09/17/2021 Telephone [facility] Women's Valeria Bey MD Referral Clinic [place] [address] [address] [place] [address] [place] [address] [place] [address] [phone] Social History Tobacco Use Types Packs/Day Years Used Date Smoking Tobacco: Never Smokeless Tobacco: Never Alcohol Use Standard Drinks/Week Comments Not Currently 0 (1 standard drink = 0.6 oz pure alcoho l) Sex Assigned at Date Recorded Female 09/11/2021 7:15 AM HAND II TUBE BENDER COVID-19 Exposure Response Date Recorded In the [...] prior to delivery. Post-lore Echo advised per [facility] addended note on 09/14. Will cancel echo order. Discussed with Dr Torrez. Em Fairchild RN II TUBE BENDER Telephone Encounter - Kylah Lund RN - 09/18/2021 12:42 PM CST Spoke to pt, she will call [facility] as she has not gotten a call. Explained that she needs a echo. Kylah Prado RN BSN II TUBE BENDER Telephone Encounter - Kylah Lund RN - 09/17/2021 2:56 PM CST Referral for [facility] echo entered. Will watch to see that it gets scheduled. Kylah Prado RN BSN II TUBE BENDER Telephone Encounter - Kylah Lund RN - 09/17/2021 2:55 PM CST ----- Message from Valeria Bey MD sent at 09/17/2021 2:39 PM HAND II TUBE BENDER ----- Regarding: RE: Need consult for DM2? Please contact [facility] and ensure this patient is scheduled for a echo in the near future due to hx of preexisting DM2. Thank you, Valeria Bey MD ----- Message ----- From: Natalio Stafford MD Sent: 09/16/2021 9:21 PM HAND II TUBE BENDER To: Valeria Bey MD Subject: RE: Need consult for DM2? Sorry. I just saw this but for future, if timing is too far out, text me at [phone] or call [facility]FM at [facility] or [facility] and they can get cardiology to find [...] Valeria Bey MD Sent: 08/30/2021 5:43 PM HAND II TUBE BENDER To: Natalio Macias MD Subject: RE: Need consult for DM2? If I am unable to get a echo in our system for a patient with DM2, where should I send them? Thanks, Valeria Bey MD ----- Message ----- From: Soheila Muniz RN Sent: 08/30/2021 2:35 PM HAND II TUBE BENDER To: Valeria Bey MD Subject: RE: Need consult for DM2? Sounds good. I will try my hardest to get her an echo but they are currently booked 7 weeks out! ----- Message ----- From: Valeria Bey MD Sent: 08/30/2021 1:33 PM HAND II TUBE BENDER To: Soheila Muniz RN Subject: RE: Need consult for DM2? I think just the ultrasound read, but she probably needs a echo as well. Thanks, Valeria Bey MD ----- Message ----- From: Soheila Muniz RN Sent: 08/29/2021 11:31 AM HAND II TUBE BENDER To: Valeria Bey MD Subject: Need consult for DM2? Hi Dr. Bey, We also received a referral at [facility] for ultrasound/transfer of care for Valery Scott from [place]. Isee she is all set up to see your clinic which is probably much more convenient for her. We are happy to see her for a L2 at [facility], wondering if you additionally would like a consult for her (as her [place] clinic ordered) or ultrasound read only? Thanks Soheila LEAL [phone] II TUBE BENDER documented in this encounter Plan of Treatment Upcoming Encounters Date Type Specialty Care Team Description 07/26/2022 Appointment Radiology. Dion Ramirez MD [address] [place], [place] [phone] Liliana Wright MD [address] [place] [address] [facility] [address] [place], [place] [address] 07/26/2022 Office Visit Maternal and Dion Ramirez MD [address] [place], [place] [phone] Medicine Liliana Wright MD [address] [facility] [address] [place], [place] [address] 08/13/2022 Appointment Cardiology Dion Ramirez MD [address] [place], [place] [address] (Wo rk) documented as of this encounter Visit Diagnoses Not on filedocumented in this encounter Care Teams Textile Machine Operator Relationship Specialty Start Date End Date No Ref-Primary, PCP - General 04/29/22 Physician MD Jeanette Endocrinology, 08/29/21 MD Hermelinda Diabetes, and [address] [facility] Metabolism 101 [place], [place] [address] Radha Reid Endocrinology 09/09/21 MD Hermelinda Provider [address] [facility] [address] [place] [address] Lurdes Echeverria MD Assigned OBGYN Provider 09/23/21 10/06/[address] [place], [place] [address] Dalia Ervin Assigned OBGYN Provider 10/07/21 [place] [address] [address] [place] [address] Lore Son Assigned OBGYN Provider 05/18/22 MD Gianni [address] [place] [address] documented as of this encounter
--- OUTSIDE RECORDS SUMMARY | 2022-07-12 21:19 | XMS_ITS | Encounter Summary ---
:1995 Author Organization [place] Address [address] [facility] [place] [address] Care Team Providers Name Role Phone Hermelinda Reid MD Unavailable [phone] Hermelinda Reid MD Unavailable [phone] Reason for Referral Diagnostic Imaging Ultrasound (Routine) - Pending Review Specialty Diagnoses / Procedures Referred By Contact Refer red To Contact Diagnoses with type 2 diabetes mellitus in third trimester Rh Maternal Med Procedures Maternal BPP Single [address] [place] [address] Referral ID Status Reason Start Date Expiration Date Visits V isits Requested Authorized [id number] Pending 09/14/2021 09/14/2022 1 1 Review METRIST/PRACTICE OWNER Reason for Visit Diagnostic Imaging Ultrasound (Routine) - Pending Review Specialty Diagnoses / Procedures Referred By Contact Refer red To Contact Diagnoses with type 2 diabetes mellitus in third trimester Rh Maternal Med Procedures Maternal BPP Single [address] [place] [address] Referral ID Status Reason Start Date Expiration Date Visits V isits Requested Authorized [id number] Pending 09/14/2021 09/14/2022 1 1 Review Encounter Details Date Type Department Care Team Description 09/17/2021 Hospital Encounter [facility] Yonny Meza MD [address] [facility] [address] [place] [address] with type 2 Maternal Lurdes Echeverria MD [address] [place], [place] [address] diabetes mellitus in Medicine [facility] Dory [address] [place] [address] [address] [place] [address] Social History Tobacco Use Types Packs/Day Years Used Date Smoking Tobacco: Never Smokeless Tobacco: Never Alcohol Use Standard Drinks/Week Comments Not Currently 0 (1 standard drink = 0.6 oz pure alcoho l) Sex Assigned at Date Recorded Female 09/11/2021 7:15 AM OPTOMETRIST/PRACTICE OWNER COVID-19 Exposure Response Date Recorded In the last month, have you been in contact with No / Unsure 09/17/2021 3:01 PM OPTOMETRIST/PRACTICE OWNER someone who was confirmed or suspected to [...] MD [address] [place] [address] Liliana Wright MD 420 [facility] [address] [place] [address] 07/26/2022 Office Visit Maternal and Dion Ramirez MD [address] [place] [address] Medicine Liliana Wright MD 420 [facility] [address] [place] [address] 08/13/2022 Appointment Cardiology Dion Rmairez MD [address] [place] [address] (Wo rk) documented as of this encounter Procedures Procedure Name Priority Date/Time Associated Diagnosis Comme nts [facility] BPP SINGLE Routine 09/17/2021 3:23 PM with type 2 Results for this OPTOMETRIST/PRACTICE OWNER diabetes mellitus in procedu re are in the third trimester results sect ion. documented in this encounter Results Maternal BPP Single (09/17/2021 3:23 PM OPTOMETRIST/PRACTICE OWNER) Anatomical Region Laterality Modality Ultrasound Specimen (Source) Anatomical Collection Method Collection Time Re ceived Time Location / / Volume Laterality 09/17/2021 3:09 PM OPTOMETRIST/PRACTICE OWNER Impressions 09/17/2021 4:18 PM OPTOMETRIST/PRACTICE OWNER IMPRESSION 1. Wolfe intrauterine at 3 4w1d gestational age here for testing. 2. The fetus is in variable presentation . The amniotic fluid volume is normal. 3. The BPP is 88. Narrative 09/17/2021 4:18 PM OPTOMETRIST/PRACTICE OWNER BPP Pat. Name: BEATRIZ APARICIO Study Date: 09/17 3:09pm Pat. NO: [id number] Referring ??MD: LASHAUN SWARTZ Site: [facility] Wash Crew Person: Sara mcrgaw RDMS : 1995 Age: 26 INDICATION Poorly [...] Pat. Name:Tamera APARICIO Date:09/17/19 3:09pm Pat. NO: [id number] MD:KALYANI SWARTZ [facility]Sara Browning RDMS :1995Age:26 INDICATION Poorly controlled diabetes [...] The BPP is 8/8. Lisandra Casanova MD [place] ORDERABLES documented in this encounter Visit Diagnoses Diagnosis with type 2 diabetes mellitus in third trimester documented in this encounter Care Teams Fertilizer Mixer Relationship Specialty Start Date End Date MD Jeanette Endocrinology, 08/29/21 MD Hermelinda Diabetes, and [address] [place] [address] [facility] Metabolism [address] [place] [address] Radha Reid Endocrinology 09/09/21 MD Hermelinda Provider [address] [facility] [address] [id number] documented as of this encounter
--- OUTSIDE RECORDS SUMMARY | 2022-07-12 21:19 | XMS_ITS | Encounter Summary ---
:1995 Author Organization [facility] Address [address] [place] [address] Care Team Providers Name Role Phone Hermelinda Reid MD Unavailable [phone] Hermelinda Reid MD Unavailable [phone] Reason for Visit Reason Comments Care Encounter Details Date Type Department Care Team Description 09/10/2021 Office [facility] latha of high Visit Clinic [facility] in [address] third trimester [address] (Primary Dx) [place] [address] Social History Tobacco Use Types Packs/Day Years Used Date Smoking Tobacco: Never Smokeless Tobacco: Never Alcohol Use Standard Drinks/Week Comments Not Currently 0 (1 standard drink = 0.6 oz pure alcoho l) Sex Assigned at Date Recorded Female 09/11/2021 7:15 AM ADOBE CQ DEVELOPER COVID-19 Exposure Response Date Recorded In the last month, have you been in contact Unable to assess 09/10/2021 2:16 PM ADOBE CQ DEVELOPER with someone who was confirmed or suspected [...] this. Pt states at last OV with [facility] on 09/06 she had elevated BP [...] to this ?: No Em Fairchild RN E CQ DEVELOPER documented in this encounter Plan of Treatment Upcoming Encounters Date Type Specialty Care Team Description 07/26/2022 Appointment Radiology. Dion Ramirez MD [address] [place], [place] [address] Liliana Wright MD [address] [facility] [address] [place], [place] [address] 07/26/2022 Office Visit Maternal and Dion Ramirez MD [address] [place], [place] [address] Medicine Liliana Wright MD [address] [place] [address] [facility] [address] [place], [place] [address] 08/13/2022 Appointment Cardiology Dion Ramirez MD [address] [place] [address] (Wo rk) documented as of [...] (RPR) (External Result) (03/27/2021 12:00 AM CDT) [facility] Method Time Signature Treponema Nonreactive Nonreactive EXTERNAL [...] PCR (External Result) (03/27/2021 12:00 AM CDT) [facility] [employer] Method Time Signature Specimen Vag EXTERNAL LAB Description Chlamydia Negative Negative EXTERNAL LAB Trachomatis PCR Specimen (Source) Anatomical Location Collection Method / Collectio n Time Received Time / Laterality Volume 03/27/2021 Patient Reported LAB - HIM EXTERNAL RESULT Performing Organization Address City/[facility]/ZIP Code Phon e Number EXTERNAL LAB EXTERNAL LAB External Lab HIV-1 Antibody (External Result) (03/27/2021 12:00 AM CDT) [facility] [employer] Method Time Signature HIV 1&2 Negative Nonreactive EXTERNAL LAB Antibody (External) Specimen (Source) Anatomical Location Collection Method / Collectio n Time Received Time / Laterality Volume 03/27/2021 Patient Reported LAB - HIM EXTERNAL RESULT Performing Organization Address City/State/ZIP Code Phon e Number EXTERNAL LAB EXTERNAL LAB External Lab Hepatitis B Surface Antigen (External Result) (03/27/2021 12:00 AM CDT) [facility] [employer] Method Time Signature Hepatitis B Negative Nonreactive EXTERNAL LAB Surface Antigen (External) Specimen (Source) Anatomical Location Collection Method / Collectio n Time Received Time / Laterality Volume 03/27/2021 Patient Reported LAB - HIM EXTERNAL RESULT Performing Organization Address City/State/ZIP Code Phon e Number EXTERNAL LAB EXTERNAL LAB External Lab Hepatitis C Antibody (External Result) (03/27/2021 12:00 AM CDT) [facility] [employer] Method Time Signature Hepatitis C Negative Nonreactive [...] high-risk documented in this encounter Care Teams Traffic Control Technician Relationship Specialty Start Date End Date MD Jeanette Endocrinology, 08/29/21 MD Hermelinda Diabetes, and [address] [facility] Metabolism [address] [place] [address] Radha Reid Endocrinology 09/09/21 MD Hermelinda Provider [address] [facility] [address] [place], [place] [address] documented as of this encounter
--- OUTSIDE RECORDS SUMMARY | 2022-07-12 21:19 | XMS_ITS | Encounter Summary ---
:1995 Author Organization [place] Address [address] [facility] [place] [address] Care Team Providers Name Role Phone Hermelinda Reid MD Unavailable [phone] Hermelinda Reid MD Unavailable [phone] Reason for Referral Diagnostic Imaging Ultrasound (Routine) - Pending Review Specialty Diagnoses / Procedures Referred By Contact Refer red To Contact Diagnoses with type 2 diabetes mellitus in third trimester Rh Maternal Med Procedures Maternal BPP Single [address] [place] [address] Referral ID Status Reason Start Date Expiration Date Visits V isits Requested Authorized [id number] Pending 09/14/2021 09/14/2022 1 1 Review R METER READER Reason for Visit Reason Comments Ultrasound L2- Encounter Details Date Type Department Care Team Description 09/14/2021 Office Visit [facility] Freya Krishnamurthy MD [address] [place] [address] with type 2 Maternal Lisandra Casanova MD [address] [place] [address] [address] [place], [place] [phone] diabetes mellitus in Medicine [facility] (Primary Dx) [address] [place] [address] Social History Tobacco Use Types Packs/Day Years Used Date Smoking Tobacco: Never Smokeless Tobacco: Never Alcohol Use Standard Drinks/Week Comments Not Currently 0 (1 standard drink = 0.6 oz pure alcoho l) Sex Assigned at Date Recorded Female 09/11/2021 7:15 AM WATER METER READER COVID-19 Exposure Response Date Recorded In the last month, have you been in contact with No / Unsure 09/14/2021 8:37 AM WATER METER READER someone who was confirmed or suspected to have Coronavirus / COVID-19? documented as of this encounter Last Filed Vital Signs Vital Sign Reading Time Taken Comments Blood Pressure 115/83 09/14/2021 10:00 AM WATER METER READER Pulse - - Temperature - - Respiratory Rate - - Oxygen Saturation - - Inhaled Oxygen Concentration - - Weight - - Height - - Body Mass Index - - documented in this encounter Progress Notes Lisandra Casanova MD - 09/14/2021 9:15 AM CST Please see Imaging tab under Chart Review for details of today's visit. Lisandra Casanova R METER READER documented in this encounter Plan of Treatment Upcoming Encounters Date Type Specialty Care Team Description 07/26/2022 Appointment Radiology. Dion Ramirez MD [address] [place], [place] [address] Liliana Wright MD [address] [id number] 07/26/2022 Office Visit Maternal and Dion Ramirez MD [address] [place], [place] [address] Medicine Liliana Wright MD [address] [id number] 08/13/2022 Appointment Cardiology Dion Ramirez MD [address] [place] [address] [phone] (Wo rk) documented as of this encounter Results Maternal BPP Single (09/17/2021 3:23 PM WATER METER READER) Anatomical Region Laterality Modality Ultrasound Specimen (Source) Anatomical Collection Method Collection Time Re ceived Time Location / / Volume Laterality 09/17/2021 3:09 PM WATER METER READER Impressions 09/17/2021 4:18 PM WATER METER READER IMPRESSION 1. Wolfe intrauterine at 3 4w1d gestational age here for testing. 2. The fetus is in variable presentation . The amniotic fluid volume is normal. 3. The BPP is 8/8. Narrative 09/17/2021 4:18 PM WATER METER READER BPP Pat. Name: BEATRIZ APARICIO Study Date: 09/17 3:09pm Pat. NO: [id number] Referring ??MD: LASHAUN SWARTZ Site: [facility] Parts Specialist: Sara mcgraw RDMS : 1995 Age: 26 [...] Pat. Name:Tamera APARICIO Date:09/17/19 3:09pm Pat. NO: [id number] :FREYA SWARTZ [facility]Sara Browning RDMS :1995Age:26 INDICATION Poorly controlled diabetes [...] The BPP is 8/8. Lisandra Casanova MD [facility] US ORDERABLES documented in this encounter Visit Diagnoses Diagnosis with type 2 diabetes mellitus in third trimester - Primary with type 2 diabetes mellitus in third trimester documented in this encounter Care Teams Delicatessen Slicer Relationship Specialty Start Date End Date MD Jeanette Endocrinology, 08/29/21 MD Hermelinda Diabetes, and [address] [facility] Metabolism [address] [place] [address] Radha Reid Endocrinology 09/09/21 MD Hermelinda Provider [address] [facility] [address] [address] documented as of this encounter
--- OUTSIDE RECORDS SUMMARY | 2022-07-12 21:19 | XMS_ITS | Encounter Summary ---
:1995 Author Organization [place] Address [address] [place] [address] Care Team Providers Name Role Phone Hermelinda Reid MD Unavailable [phone] Reason for Visit Reason Comments Video Visit Encounter Details Date Type Department Care Team Description 09/05/2021 Virtual Visit [facility] Jeanette, Type 2 diabetes Endocrinology Clinic MD Hermelinda mellitus with [address] hyperglycemia, [address] [facility] [address] [facility] 101 unspecified whether 3rd Floor [place], [place] [facility] [facility] [place] [address] use (H) (Primary Dx) [id number] Social History Tobacco Use Types Packs/Day Years Used Date Smoking Tobacco: Never Smokeless Tobacco: Never Alcohol Use Standard Drinks/Week Comments Not Currently 0 (1 standard drink = 0.6 oz pure alcoho l) Sex Assigned at Date Recorded Female 09/11/2021 7:15 AM OUTREACH COUNSELOR COVID-19 Exposure Response Date Recorded In the last month, have you been in contact with No / Unsure 08/26/2021 1:50 PM OUTREACH COUNSELOR someone who was confirmed or suspected to have Coronavirus / COVID-19? documented as of this encounter Progress Notes Mily Kingston - 09/05/2021 11:30 AM CST Outcome for 09/04/21 12:15 PM: Reached patient but requests call back at 3pm Mily Kingston, VF Outcome for 09/04/21 3:48 PM: Left Voicemail Mily Kingston VF Outcome for 09/04/21 4:37 PM: Left Voicemail Mily Kingston, [place]A EACH COUNSELOR Garima Rodriguez - 09/05/2021 11:30 AM CST Valery is a 26 year old who is being evaluated via a billable video visit. How would you like to obtain your AVS? Mail a copy If the video visit is dropped, the invitation should be resent by: Text to cell phone: [phone] Will anyone else be joining your video visit? No Garima MONGE Video-Visit Details Type of service: Video Visit Originating Location (pt. Location): Home Distant Location (provider location): [facility] Platform used for Video Visit: Yari EACH COUNSELOR Hermelinda Reid MD - 09/05/2021 11:30 AM [...] The pt has seen Dr Rocha an Fork Truck Operator earlier in the for diabetes management [...] of Diabetes and Endocrinology Department of Medicine [phone] EACH COUNSELOR documented in this encounter Nursing Notes Garima Rodriguez - 09/05/2021 11:30 AM CST Patient stated she did not know her height and weight. EACH COUNSELOR documented in this encounter Plan of Treatment Upcoming Encounters Date Type Specialty Care Team Description 07/26/2022 Appointment Radiology. Dion Ramirez MD [address] [place], [place] [address] Liliana Wright MD [address] [address] 07/26/2022 Office Visit Maternal and Dion Ramirez MD [address] [place], [place] [address] Medicine Liliana Wright MD [address] [address] 08/13/2022 Appointment Cardiology Dion Ramirez MD [address] [place], [place] [address] (Wo rk) documented as of this encounter Visit Diagnoses Diagnosis Type 2 diabetes mellitus with hyperglyce ashu, unspecified whether [place] [facility] insulin use (H) - Primary documented in this encounter Care Teams Metal Worker Relationship Specialty Start Date End Date Hermelinda Reid MD Endocrinology, Diabetes, MD and Metabolism [address] [place] [address] documented as of this encounter
[2022-07-12 21:20] LABS: Albumin* 3.7 g/dL (3.3-5.0); Chloride* 109 mmol/L (96-114); Sodium* 136 mmol/L (135-149)
--- OUTSIDE RECORDS SUMMARY | 2022-07-12 21:20 | XMS_ITS | Encounter Summary ---
:1995 Author Organization [place] Address [address] [place] [address] Care Team Providers Name Role Phone Unavailable Primary Care Provider Unavailable Reason for Visit Reason Comments Blood Sugar Problem Elevated Encounter Details Date Type Department Care Team Description 08/26/2021 Hospital Encounter [facility] Zac Slaughter MD [place] [place] [address] [facility] 100 131 160 [place] [address] [place], [place] [phone] [address] Social History Tobacco Use Types Packs/Day Years Used Date Smoking Tobacco: Never Smokeless Tobacco: Never Alcohol Use Standard Drinks/Week Comments Not Currently 0 (1 standard drink = 0.6 oz pure alcoho l) Sex Assigned at Date Recorded Female 09/11/2021 7:15 AM SEPTIC TANK INSTALLER COVID-19 Exposure Response Date Recorded In the last month, have you been in contact with No / Unsure 08/26/2021 1:50 PM SEPTIC TANK INSTALLER someone who was confirmed or suspected to have Coronavirus / COVID-19? documented as of this encounter Last Filed Vital Signs Vital Sign Reading Time Taken Comments Blood Pressure 123/81 08/26/2021 1:46 PM SEPTIC TANK INSTALLER Pulse - - Temperature 36.6 ??C (97.9 ??F) 08/26/2021 1:46 PM SEPTIC TANK INSTALLER Respiratory Rate 18 08/26/2021 1:46 PM SEPTIC TANK INSTALLER Oxygen Saturation - - Inhaled Oxygen Concentration - - Weight 89.8 kg (198 lb) 08/26/2021 1:46 PM SEPTIC TANK INSTALLER Height 160 cm (5' 3) 08/26/2021 1:46 PM SEPTIC TANK INSTALLER Body Mass Index 35.07 08/26/2021 1:46 PM SEPTIC TANK INSTALLER documented in this encounter Discharge Instructions Discharge [...] to you by your Clinic Provider or White Spooler. Activity: Count kicks everyday (see handout) Call your doctor or nurse medical economics consultant if your baby is moving less than [...] and amount) Other: Call your doctor or medical economics consultant with any questions or concerns. Follow-up: As scheduled in the clinic IC TANK INSTALLER AttachmentsThe following attachments cannot be sent through Care Everywhere. During , Blood Glucose Screening (Congolese)Gestational Diabetes, What Is (Congolese), Monitoring Your Blood Sugar During (Congolese), Understanding Blood Sugar During (Congolese)documented in this encounter Medications at Time of [...] Horan MD - 08/26/2021 4:21 PM CST [facility] Labor and Delivery History and Physical Valery Scott Age: [age] year old Date of : 1995 Date of Admission: 08/26/2021 Primary care provider: No primary care provider on file. Chief Complaint: Valery Scott is a 26 year old female PAYTON 10/28/21 confirmed with early U/S who has been receiving care thru the RAKING MACHINE OPERATOR specialists at the [facility] in [facility] who is 31w0d and being evaluated for Type 2 DM in with suboptimal control. The pt states that she was seen 2 days ago and noted to have poorly controlled BS values. The pt was told to come to [facility] for BS management and came to L&D at [facility]. The pt presents with her Significant other who states that he mixes her daily insulin. He states that the pt takes NPH 28 units and Pzfopin07 units in the am and NPH 30 [...] The pt has seen Dr Sales an Ice Cream Truck Driver earlier in the for DM mgmnt but states that she has not seen him in a while. Her previous was delivered via LST C/B at [facility] at 35.6 weeks in a complicated with [...] going to deliver via repeat C/B in [place].. Plan: The pt had a BPP today that was 8/8. U/S measurements done 08/24/21 shows a noyola infant vtx BOB of 5.2with an AC measurement in the 91 percentile. The worksheet will be abstracted. I called the [facility] to speak with her OB MD. There was a Locums working who was not familiar with this pt. I then spoke with Ghada the L&D RN from [place] who is familiar with the situation. At this time we will discharge the pt with instructions to f/u in the office in [place] tomorrow 08/27/21 with the plan that the pt will transfer care to [facility] for ongoing care due to her poorly controlled T2 DM. This plan was reviewed with the pt and her SO. They understand and accept. A copy of thisnote will be faxed to L&D in [place] Observation Zac Horan MD IC TANK INSTALLER documented in this encounter Miscellaneous Notes Plan of Care - Radha Solorio RN - 08/26/2021 4:00 PM CST discussed the plan of care with providers from [facility]. The plan is to discharge the patient to home, undelivered with instructions on when to return. She will have follow-up care at [facility]. IC TANK INSTALLER Provider Notification - Petty Hurst RN - 08/26/2021 2:20 PM SEPTIC TANK INSTALLER 08/26/21 1420 Provider Notification Provider Name/Title Dr [...] assess. BG obtained upon admission was 176. IC TANK INSTALLER Plan of Care - Petty Hurst RN [...] Horan with update and for further orders. IC TANK INSTALLER documented in this encounter Plan of Treatment Upcoming Encounters Date Type Specialty Care Team Description 07/26/2022 Appointment Radiology. Dion Ramirez MD [address] [place], [place] [phone] Liliana Wright MD [address] [address] 07/26/2022 Office Visit Maternal and Dion Ramirez MD [address] [place], [place] [address] Medicine Liliana Wright MD [address] [address] 08/13/2022 Appointment Cardiology Dion Ramirez MD [address] [place] [address] (Wo rk) documented as of this encounter Procedures Procedure Name Priority Date/Time Associated Diagnosis Comme nts OB BIOPHY STAT 08/26/2021 3:34 PM Res ults for this PROFILE W/O NON SEPTIC TANK INSTALLER procedure ar e in STRESS SINGLE the results section. GLUCOSE BY METER Routine 08/26/2021 2:05 PM Resul ts for this SEPTIC TANK INSTALLER procedure are i n the results section. documented in this encounter Results US Biophys Prof w/o Non Stress Test (08/26/2021 3:34 PM SEPTIC TANK INSTALLER) Anatomical Region Laterality Modality Abdomen/Pelvis Ultrasound Specimen (Source) Anatomical Collection Method Collection Time Re ceived Time Location / / Volume Laterality 08/26/2021 2:47 PM SEPTIC TANK INSTALLER Impressions 08/26/2021 3:39 PM SEPTIC TANK INSTALLER IMPRESSION: 1. ??Single living intrauterine gestatio n in transverse/oblique presentation. 2. ??Normal /8 biophysical profile. Narrative 08/26/2021 3:39 PM SEPTIC TANK INSTALLER EXAM: ULTRASOUND OBSTETRIC BIOPHYSICAL PROFILE WITHOUT NON STRESS SINGLE LOCATION: [facility] DATE/TIME: 08/26/2021, 2:47 PM INDICATION: Poorly managed [...] ICAL PROFILE WITHOUT NON STRESS SINGLE LOCATION: [facility] DATE/TIME: 08/26/2021, 2:47 PM INDICATION: Poorly managed [...] (ABNORMAL) Glucose by meter (08/26/2021 2:05 PM SEPTIC TANK INSTALLER) athologist Signature GLUCOSE BY 179 (H) 70 - 99 08/26/2021 LABORATORY METER POCT mg/dL 2:11 PM SEPTIC TANK INSTALLER POC Specimen Anatomical Collection Method Collection Time Receive d Time (Source) Location / / Volume Laterality Blood BLOOD SPECIMEN / 08/26/2021 2:05 PM 08/26 2:11 Unknown SEPTIC TANK INSTALLER PM SEPTIC TANK INSTALLER Zac CHENG - AILYNNAT POCT Performing Organization Address City/State/ZIP Code Phon e Number [place] [address] Care Lab [address] Lab (1st floor, no room number) [...] injection 18 Units Given 08/26/2021 3:32 PM SEPTIC TANK INSTALLER 18 Units 18 Units, Subcutaneous, DAILY, First [...] Recently Administered Medications Times are shown in SEPTIC TANK INSTALLER. Scheduled Medication Order 08/24/2021 08/25/2021 08/26/2021 insulin [...]
--- OUTSIDE RECORDS SUMMARY | 2022-07-12 21:20 | XMS_ITS | Encounter Summary ---
:1995 Author Organization [place] Address [address] [place] [address] Care Team Providers Name Role Phone Unavailable Primary Care Provider Unavailable Encounter Details Date Type Department Care Team Description 08/26/2021 Travel Social History Tobacco Use Types Packs/Day Years Used Date Smoking Tobacco: Never Smokeless Tobacco: Never Alcohol Use Standard Drinks/Week Comments Not Currently 0 (1 standard drink = 0.6 oz pure alcoho l) Sex Assigned at Date Recorded Female 09/11/2021 7:15 AM SAP TECHNICAL ARCHITECT COVID-19 Exposure Response Date Recorded In the last month, have you been in contact with No / Unsure 08/26/2021 1:50 PM SAP TECHNICAL ARCHITECT someone who was confirmed or suspected to have Coronavirus / COVID-19? documented as of this encounter Plan of Treatment Upcoming Encounters Date Type Specialty Care Team Description 07/26/2022 Appointment Radiology. Dion Ramirez MD [address] [place] [address] Liliana Wright MD 420 [facility] [address] [place], [place] [address] 07/26/2022 Office Visit Maternal and Dion Ramirez MD [address] [place], [place] [phone] Medicine Liliana Wright MD 420 [facility] [address] [place] [address] 08/13/2022 Appointment Cardiology Dion Ramirez MD [address] [place] [address] (Wo rk) documented as of this encounter Visit Diagnoses Not on filedocumented in this encounter
--- OUTSIDE RECORDS SUMMARY | 2022-07-12 21:20 | XMS_ITS | Encounter Summary ---
:1995 Author Organization [place] Address [address] [place] [address] Care Team Providers Name Role Phone Hermelinda Reid MD Unavailable [phone] Reason for Visit Reason Onset Date Comments *-*INCOMING RECORDS*-* 08/31/2021 Encounter Details Date Type Department Care Team Description 08/31/2021 PRE VISIT [facility] Jeanette, *-*[facility] Endocrinology Clinic MD Hermelinda RECORDS*-* [address] [phone] Social History Tobacco Use Types Packs/Day Years Used Date Smoking Tobacco: Never Smokeless Tobacco: Never Alcohol Use Standard Drinks/Week Comments Not Currently 0 (1 standard drink = 0.6 oz pure alcoho l) Sex Assigned at Date Recorded Female 09/11/2021 7:15 AM WATER FILTERER COVID-19 Exposure Response Date Recorded In the last month, have you been in contact with No / Unsure 08/26/2021 1:50 PM WATER FILTERER someone who was confirmed or suspected to [...] VITAMIN D 25 (DEFICIENCY- 3.26.21 TSH/T4- 2.15.21 R FILTERER documented in this encounter Plan of Treatment Upcoming Encounters Date Type Specialty Care Team Description 07/26/2022 Appointment Radiology. Dion Ramirez MD [address] [place], [place] [address] Liliana Wright MD 420 [facility] [address] [place], [place] [address] 07/26/2022 Office Visit Maternal and Dion Ramirez MD [address] [place], [place] [address] Medicine Liliana Wright MD 420 [facility] 395 [place], [place] [address] 08/13/2022 Appointment Cardiology Dion Ramirez MD [address] [place], [place] [address] (Wo rk) documented as of this encounter Visit Diagnoses Not on filedocumented in this encounter Care Teams Blow Machine Tender Starch Spraying Relationship Specialty Start Date End Date Hermelinda Reid MD Endocrinology, Diabetes, MD and Metabolism 420 [facility] 101 [place], [place] [address] documented as of this encounter
--- OUTSIDE RECORDS SUMMARY | 2022-07-12 21:20 | XMS_ITS | Clinical Summary ---
:1995 Author Organization [facility] [facility] [place] [address] Care Team Providers Name Role Phone EliciaVianeysindy [...] tablet MOUTH EVERY 6-8 HOURS BD [employer] Control Technician USE DIRECTED 0 12/20/2021 Active misc fluticasone [...] 04/17/2022 Phone [facility] ([facility], no [facility]als/); Pr enatal Care [...] based on a review of the patient's [facility] t and/or a discussion with members of e patient's treatment team, a telephone visit is an appropriate and effective means of providing this service. The patient and I mutually agree that this visit is appropriate for telephone as well. Patient location (originating site city/ state): [place], [place] Provider location (distant site city/sta ): [place], [place] Telephone start time (include am/pm uzair gnation): 5:10 PM Telephone end time (include am/pm design ation): 5:35 PM Total time preparing to see this patient , [id number] time, and coordinating care time on the [...] Impairment not difficult at a ll - BRITTNEY-7 ANXIETY SCREENING 04/17/2022 BRITTNEY date (doc flow) [...] MD Preferred method of contact: Miriam Silva [facility] 04/17/2022 4:58 PM Subjective SUBJECTIVE: HPI Patient [...] and was evaluated in the ED in [place], [place]. She was evaluated and it was [...] Patient believes she will go back to [place] where she received care during her recent . - AMB CONSULT TO OB-MOVIE SHOT [place] --[facility]- -; Future History of eclampsia - AMB CONSULT TO OB-[facility] [place] -; Future S/P section - AMB CONSULT TO OB-[facility]IE SHOT [place]- -; Future Short interval between pregnancies affec ting in first trimester, antepartum - AMB CONSULT TO OB-MOVIE SHOT [place]ERAMAN --[facility]- -; Future Type 2 diabetes mellitus without complic ation, with long-term current use of insulin (HC) - AMB CONSULT TO OB-MOVIE SHOT CAMERAMAN --[facility]- -; Future Obesity with body mass index 30 or great er - AMB CONSULT TO OB-MOVIE SHOT CAMERAMAN --[facility]- -; Future Follow up in [...] Signature HEMOGLOBIN 9.6 (L) 12.0 - [facility]/07/2022 [facility] 16.0 g/dL 12:31 PM CDT [facility] MCV 68 (L) 80 - 100 05/07/20[facility] 12:31 PM CDT [facility] Specimen Anatomical Collection Method / Collection Time Recei iva Time (Source) Location / Volume Laterality Blood BLOOD SPECIMEN / Venipuncture / 05/07/2022 12:27 05/07 Unknown Unknown PM CDT 12:27 PM CDT Nicole Rubi DO HEMATOLOGY Performing Organization Address City/[facility]/ZIP Code Phon e Number [facility] [address] [place] [address] (ABNORMAL) GLUCOSE, RANDOM (05/07/2022 11:59 AM CDT) athologist Signature GLUCOSE,RANDOM 182 (H) 65 - 140 05/07/2022 [facility] mg/dL 12:04 PM CDT [facility] Specimen Anatomical Collection Method Collection Time Receive d Time (Source) Location / / Volume Laterality Blood BLOOD SPECIMEN / Capillary / 05/07/2022 11:59 022 Unknown Unknown AM CDT 11:59 AM CDT Traci Rubi DO CHEMISTRY Performing Organization Address City/[facility]/ZIP [facility] Phon e Number [facility] [address] [place] [address] from Last 3 Months Insurance Payer Benefit Plan / Subscriber ID Effective Dates Phone Addre ss Type Group NIKOLAI MENCHACA [place] [id number] 2021-Present [address] [place] [address] [address] (Home) [address] [place] [id number] Care Teams Bakery Team Leader Relationship Specialty Start Date End Date Nicole Rubi DO PCP - General Family Practice 11/06/[address] [place] [address]
--- OUTSIDE RECORDS SUMMARY | 2022-07-12 21:20 | XMS_ITS | Encounter Summary ---
:1995 Author Organization [place] Address [address] [place] [address] Care Team Providers Name Role Phone Hermelinda Reid MD Unavailable [phone] Hermelinda Reid MD Unavailable [phone] Lurdes Echeverria MD Unavailable Dalia Ervin MD Unavailable Reason for Visit Reason Onset Date Comments Appointment 08/31/2021 Follow up on 09/05 Encounter Details Date Type Department Care Team Description 08/31/2021 Telephone [facility] Dennise Reid (Follow Endocrinology Clinic MD Hermelnida up on 09/05) [address] [address] [phone] Social History Tobacco Use Types Packs/Day Years Used Date Smoking Tobacco: Never Smokeless Tobacco: Never Alcohol Use Standard Drinks/Week Comments Not Currently 0 (1 standard drink = 0.6 oz pure alcoho l) Sex Assigned at Date Recorded Female 09/11/2021 7:15 AM MANAGER APPOINTMENT COVID-19 Exposure Response Date Recorded In the last month, have you been in contact with No / Unsure 09/28/2021 10:08 AM MANAGER APPOINTMENT someone who was confirmed or suspected to have Coronavirus / COVID-19? documented as of this encounter Miscellaneous Notes Telephone Encounter - Karen Mayers - 09/04/2021 11:15 AM CST Patient scheduled GER APPOINTMENT Telephone Encounter - Ubaldo Ingram LPN - [...] Ingram LPN on 09/03/2021 at 2:44 PM GER APPOINTMENT Telephone Encounter - Laz Wall - 09/03/2021 8:52 AM CST [facility] Call Center Phone Message May a detailed message be left on voicemail: yes Reason for Call: Other: Pt called in to schedule for 09/05 at 1pm per my chart message, but provider is not available that day. Pt requesting a call back to schedule a time and discuss adjusting her dosage of insulin. Action Taken: Other: Endo Travel Screening: Not Applicable GER APPOINTMENT Telephone Encounter - Karen Mayers - 09/03/2021 8:43 AM CST LVM for pt to call back to schedule per instructions below GER APPOINTMENT Telephone Encounter - Karen Mayers - 08/31/2021 10:04 AM CST LVM for pt to call back to schedule follow up with Dr Shen for next Tuesday 09/05 at 1 pm GER APPOINTMENT Telephone Encounter - Peeweetoni Karen - 08/31/2021 10:03 AM CST ----- Message from Karen Mayers sent at 08/31/2021 9:56 AM MANAGER APPOINTMENT ----- Regarding: FW: add on next Fri ----- Message ----- From: Hermelinda Reid MD Sent: 08/31/2021 9:50 AM MANAGER APPOINTMENT To: Karen Mayers Subject: RE: add on next Fri I told her that I will see her next week. That's it. Could you please give her or her a callfor the appt? Hermelinda Meléndez ----- Message ----- From: Karen Mayers Sent: 08/31/2021 9:44 AM MANAGER APPOINTMENT To: Hermelinda Reid MD Subject: RE: add on fri Hi Dr Shen, I see this patient just had an appointment this morning, is the patient aware of this time and day or does she need a call to confirm? Thank you, Karen Styles ----- Message ----- From: Hermelinda Reid MD Sent: 08/31/2021 9:23 AM MANAGER APPOINTMENT To: Clinic Jiobkpfvzacy-Lldw-Yt Subject: add on fri Edward, Could you please set up f/up appt virtually with me at 1 pm on next 09/05? Thanks, Hermelinda GER APPOINTMENT documented in this encounter Plan of Treatment Upcoming Encounters Date Type Specialty Care Team Description 07/26/2022 Appointment Radiology. Dion Ramirez MD [address] [place] [address] Liliana Wright MD 420 [facility] 395 [place], [place] [address] 07/26/2022 Office Visit Maternal and Dion Ramirez MD [address] [place], [place] [address] Medicine Liliana Wright MD [address] [place] [address] [facility] 395 [place], [place] [address] 08/13/2022 Appointment Cardiology Dion Ramirez MD [address] [place] [address] (Wo rk) documented as of this encounter Visit Diagnoses Not on filedocumented in this encounter Care Teams Line Person Relationship Specialty Start Date End Date MD Jeanette Endocrinology, 08/29/21 MD Hermelinda Diabetes, and 420 [facility] Metabolism [address] [place], [place] [phone] Radha Reid Endocrinology 09/09/21 MD Hermelinda Provider [address] [place] [address] [facility] 101 [place], [place] [address] Lurdes Echeverria MD Assigned OBGYN Provider 09/23/21 10/06/[address] [place], [place] [address] Dalia Ervin Assigned OBGYN Provider 10/07/21 [place] [address] [facility] [place], [place] [id number] documented as of this encounter
--- OUTSIDE RECORDS SUMMARY | 2022-07-12 21:20 | XMS_ITS | Encounter Summary ---
:1995 Author Organization [place] Address [address] [place] [address]. [place] [address] Care Team Providers Name Role Phone Hermelinda Reid MD Unavailable [phone] Reason for Visit Reason Comments Video Visit Consultation (Urgent: 3-5 Days) - Closed Specialty Diagnoses / Procedures Referred By Contact Refer red To Contact Endocrinology, Diagnoses Type 2 diabetes mellitus (H) High-risk , unspecified trimester Valeria Bey MD [facility] Diabetes, and [address] [facility] [place] [address] [place] [address] [address] [place] Jan [phone] Phone: Referral ID Status Reason Start Date Expiration Date Visits Requ ested Visits Authorized [id number] Closed 08/28/2021 08/28/2022 1 1 Encounter Details Date Type Department Care Team Description 08/31/2021 Virtual Visit [facility] Valeria Bey MD [address] [place] [address] Type 2 diabetes mellitus with hyperglyce ashu, unspecified whether nursing home administrator insulin use (H) (Primary Dx); Endocrinology Clinic Hermelinda Reid MD [address] [place] [address] [address] [place] [address] High-risk , unspecified trimest er [place] [address] [facility] [address] [place] [address] Social History Tobacco Use Types Packs/Day Years Used Date Smoking Tobacco: Never Smokeless Tobacco: Never Alcohol Use Standard Drinks/Week Comments Not Currently 0 (1 standard drink = 0.6 oz pure alcoho l) Sex Assigned at Date Recorded Female 09/11/2021 7:15 AM AGENT TELEGRAPHER COVID-19 Exposure Response Date Recorded In the last month, have you been in contact with No / Unsure 08/26/2021 1:50 PM AGENT TELEGRAPHER someone who was confirmed or suspected to have Coronavirus / COVID-19? documented as of this encounter Patient Instructions Patient InstructionsHermelinda Reid MD - 08/31/2021 8:50 AM AGENT TELEGRAPHER Change insulin regimen to Increase NPH 32 units and Regular 16 units with breakfast Increase NPH 26 units and Regular 20 units with supper Return in 1 week If you have any questions, please do not hesitate to call clinic line at [phone] and ask for Endocrinology clinic. If you need to fax, please fax to clinic fax number at [phone] After clinic hours or weekends, please contact [phone] and ask for R And D Lab Technician-mergers and acquisitions banker Sincerely, Hermelinda Reid MD Endocrinology T TELEGRAPHER documented in this encounter Progress Notes Karina Howe - 08/31/2021 8:50 AM CST Valery Scott is being evaluated via a billable video visit. How would you like to obtain your AVS? Mail a copy For the video visit, send the invitation by: Text to cell phone: [phone] Will anyone else be joining your video visit? No Outcome for 08/30/21 9:05 AM: Left Voicemail Outcome for 08/30/21 12:22 PM: Data obtained via phone and located below. Pt could not find old meter. She only has data from her new meter she has. 08/29/21 5:54pm: 108 11:44pm: 190 08/30/21 12:59pm: 104 T TELEGRAPHER Hermelinda Reid MD - 08/31/2021 8:50 AM [...] The pt has seen Dr Rocha an R And D Lab Technician earlier in the for diabetes management and [...] of Diabetes and Endocrinology Department of Medicine [phone] T TELEGRAPHER documented in this encounter Plan of Treatment Upcoming Encounters Date Type Specialty Care Team Description 07/26/2022 Appointment Radiology. Dion Ramirez MD [address] [place] [address] Liliana Wright MD [address] [place] [address] [facility] [address] [place], [place] [address] 07/26/2022 Office Visit Maternal and Dion Ramirez MD [address] [place], [place] [address] Medicine Liliana Wright MD 420 [facility] [address] [place] [address] 08/13/2022 Appointment Cardiology Dion Ramirez MD [address] [place] [address] (Wo rk) documented as of this encounter Visit Diagnoses Diagnosis Type 2 diabetes mellitus with hyperglyce ashu, unspecified whether fpc insulin use (H) - Primary High-risk , unspecified trimest er documented in this encounter Care Teams Imaging Engineer Relationship Specialty Start Date End Date Hermelinda Reid MD Endocrinology, Diabetes, MD and Metabolism 420 [facility] [address] [place] [address] documented as of this encounter
--- OUTSIDE RECORDS SUMMARY | 2022-07-12 21:20 | XMS_ITS | Encounter Summary ---
:1995 Author Organization [place] Address [address] [place] [address]. [place] [address] Care Team Providers Name Role Phone Unavailable Primary Care Provider Unavailable Reason for Referral Patient Education (Routine: Next available opening) - Closed Specialty Diagnoses / Procedures Referred By Contact Refer red To Contact Diabetes Education Diagnoses Type 2 diabetes mellitus (H) High-risk , unspecified trimester Valeria Bey MD [facility] [address] [facility] [address] [place] [address] Phone: Referral ID Status Reason Start Date Expiration Date Visits Requ ested Visits Authorized [id number] Closed 08/28/2021 08/28/2022 1 1 onsultation (Urgent: 3-5 Days) - Closed Specialty Diagnoses / Procedures Referred By Contact Refer red To Contact Endocrinology, Diagnoses Type 2 diabetes mellitus (H) High-risk , unspecified trimester Valeria Bey MD [facility] Diabetes, and [address] [facility] [address] [place] [facility] [address] Phone: Referral ID Status Reason Start Date Expiration Date Visits Requ ested Visits Authorized [id number] Closed 08/28/2021 08/28/2022 1 1 CTOR PROPERTY Reason for Visit Reason Onset Date Comments Transferred OB Care 08/27/2021 Encounter Details Date Type Department Care Team Description 08/27/2021 [facility] Valeria Bey MD Transferred OB Care [facility] [address] [address] [place] [address] Social History Tobacco Use Types Packs/Day Years Used Date Smoking Tobacco: Never Smokeless Tobacco: Never Alcohol Use Standard Drinks/Week Comments Not Currently 0 (1 standard drink = 0.6 oz pure alcoho l) Sex Assigned at Date Recorded Female 09/11/2021 7:15 AM DIRECTOR PROPERTY COVID-19 Exposure Response Date Recorded In the last month, have you been in contact with No / Unsure 08/26/2021 1:50 PM DIRECTOR PROPERTY someone who was confirmed or suspected to have Coronavirus / COVID-19? documented as of this encounter Miscellaneous Notes Telephone Encounter - Kylah Lund RN - 08/28/2021 9:37 AM CST Spoke to pt added referrals. Sent to scheduling . .Kylah Prado RN BSN CTOR PROPERTY Telephone Encounter - aLtisha Velazquez RN - 08/28/2021 9:25 AM CST Fine to transfer. Please set her up immediately with endocrine and diabetes ed. Thank you, Valeria Bey MD CTOR PROPERTY Telephone Encounter - Latisha Velazquez RN - 08/27/2021 3:30 PM CST Patient is requesting to transfer care to [facility] from her previous clinic in [place]. (Women's Health) Due to high risk . Pt states she has been compliant with all appointments. Per [facility] protocol, all transfer patients that are equal to or greater than 24 weeks needprior approval from [facility] Animal Breeder before scheduling any appointments. 2 Para 1 [...] MD on-call for direction. Latisha Velazquez, RN CTOR PROPERTY documented in this encounter Plan of Treatment Upcoming Encounters Date Type Specialty Care Team Description 07/26/2022 Appointment Radiology. Dion Ramirez MD [address] [place], [place] [address] Liliana Wright MD [address] [id number] 07/26/2022 Office Visit Maternal and Dion Ramirez MD [address] [place], [place] [address] Medicine Liliana Wright MD [address] [address] 08/13/2022 Appointment Cardiology Dion Ramirez MD [address] [place], [place] [address] (Wo rk) Scheduled Referrals Name Type Priority [...]
--- OUTSIDE RECORDS SUMMARY | 2022-07-12 21:20 | XMS_ITS | Encounter Summary ---
:1995 Author Organization [place] Address [address] [place] [address] Care Team Providers Name Role Phone Hermelinda Reid MD Unavailable [phone] Valeria Bey MD Primary Care Provider Reason for Visit Reason Onset Date Comments Diabetes Education 08/28/2021 scheduling outreach Gestational Diabetes 08/28/2021 Encounter Details Date Type Department Care Team Description 08/28/2021 Telephone [facility] Valeria Bey MD Diabetes Education [facility] [address] (scheduling outreach); [place] [address] Gestational Diabetes [address] [place] [address] Social History Tobacco Use Types Packs/Day Years Used Date Smoking Tobacco: Never Smokeless Tobacco: Never Alcohol Use Standard Drinks/Week Comments Not Currently 0 (1 standard drink = 0.6 oz pure alcoho l) Sex Assigned at Date Recorded Female 09/11/2021 7:15 AM COLLECTION COORDINATOR COVID-19 Exposure Response Date Recorded In the last month, have you been in contact with No / Unsure 08/26/2021 1:50 PM COLLECTION COORDINATOR someone who was confirmed or suspected to have Coronavirus / COVID-19? documented as of this encounter Miscellaneous Notes Telephone Encounter - Dede Wall - 08/29/2021 12:26 PM CST Scheduled for 08/31. Dede Cheng Powerhouse Electrician ECTION COORDINATOR Telephone Encounter - Em Fairchild RN - 08/29/2021 10:02 AM CST Called pt. Explained that she needs diabetic ed with us. She was confused since she had diabetic ed with her previous clinic and did not understand she needed it with us. Please reach out to her again. She will be expecting your call. Em Fairchild RN ECTION COORDINATOR Telephone Encounter - Valeria Bey MD - [...] values to them weekly. Valeria Bey MD ECTION COORDINATOR Telephone Encounter - Dede Wall - 08/28/2021 11:23 AM CST Diabetes Education Scheduling Outreach #1: Call to patient to schedule. Patient declined to schedule. She stated that she has done this before and already knows what she needs to do. Dede Wall [facility] ECTION COORDINATOR documented in this encounter Plan of Treatment Upcoming Encounters Date Type Specialty Care Team Description 07/26/2022 Appointment Radiology. Dion Ramirez MD [address] [facility] [address] [facility] [address] [place], [place] [address] Liliana Wright MD 420 [facility] 395 [place], [place] [address] 07/26/2022 Office Visit Maternal and Dion Ramirez MD [address] [place], [place] [address] Medicine Liliana Wright MD 420 [facility] 395 [place], [place] [address] 08/13/2022 Appointment Cardiology Dion Ramirez MD [address] [place], [place] [address] (Wo rk) documented as of this encounter Visit Diagnoses Not on filedocumented in this encounter Care Teams Director Targeted Marketing Relationship Specialty Start Date End Date Valeria Bey MD PCP - General direct care provider 08/29/21 08/29/21 [address] [place], [place] [address] Hermelinda Reid MD Endocrinology, Diabetes, MD and Metabolism 420 [facility] 101 [place], [place] [address] documented as of this encounter
--- OUTSIDE RECORDS SUMMARY | 2022-07-12 21:20 | XMS_ITS | Encounter Summary ---
:1995 Author Organization [place] Address [facility] [place] [address] Care Team Providers Name Role Phone Unavailable Primary Care Provider Unavailable Reason for Referral Consultation (Routine: Next available opening) - Pending Review Specialty Diagnoses / Procedures Referred By Contact Refer red To Contact Diagnoses related condition, antepartum Cortney Sethi [place] [address] Referral ID Status Reason Start Date Expiration Date Visits V isits Requested Authorized [id number] Pending 08/28/2021 08/28/2022 1 1 Review N TECH Encounter Details Date Type Department Care Team Description 08/28/2021 Transcribe Orders [facility] Navdeep, Pregn amelia related Maternal Cortney Moran condition, Medicine Center [place] NO INFO FOUND antepar cheyanne (Primary [place] Dx) [address] [place] [address] [place] [address] [place] [address] Social History Tobacco Use Types Packs/Day Years Used Date Smoking Tobacco: Never Smokeless Tobacco: Never Alcohol Use Standard Drinks/Week Comments Not Currently 0 (1 standard drink = 0.6 oz pure alcoho l) Sex Assigned at Date Recorded Female 09/11/2021 7:15 AM LINEN TECH COVID-19 Exposure Response Date Recorded In the last month, have you been in contact with No / Unsure 08/26/2021 1:50 PM LINEN TECH someone who was confirmed or suspected to have Coronavirus / COVID-19? documented as of this encounter Plan of Treatment Upcoming Encounters Date Type Specialty Care Team Description 07/26/2022 Appointment Radiology. Dion Ramirez MD [address] [place], [place] [address] Liliana Wright MD 420 [facility] 395 [place], [place] [address] 07/26/2022 Office Visit Maternal and Dion Ramirez MD [address] [place], [place] [address] Medicine Liliana Wright MD 420 [facility] 395 [place], [place] [phone] 08/13/2022 Appointment Cardiology Dion Ramirez MD [address] [place] [address] (Wo rk) Scheduled Referrals Name Type Priority Associated Diagnoses Order S chedule Mat Med Ctr Referral Routine: Next related Expe cted: Referral - available opening condition, 08/28/2021 antepartum (Approximate), Expires: 02/24/2022 documented as of this encounter Visit Diagnoses Diagnosis related condition, antepartum - Primary documented in this encounter
[2022-07-12 21:21] LABS: Potassium* 3.9 mmol/L (3.6-5.1)
[2022-07-12 21:23] LABS: Aspartate Amino Transferase* 14 U/L (12-35); Bilirubin Direct* 0.1 mg/dL (0.0-0.5); Bilirubin Total* 0.2 mg/dL (0.1-1.5); Blood Urea Nitrogen* 7 mg/dL (5-24); Carbon Dioxide* 21 mmol/L (20-32); Creatinine* 0.4 mg/dL (0.5-1.5); Est. Creatinine Clearance* 167.09; Estimated Glomerular Filt Rate 139 ml/min; Total Protein* 6.9 g/dL (6.0-8.3)
[2022-07-12 21:24] LABS: Alanine Aminotransferase* 13 U/L (4-35); Alkaline Phosphatase* 85 U/L (40-150); Calcium* 8.7 mg/dL (8.4-10.6); Glucose* 205 mg/dL (60-115)
[2022-07-12 21:26] LABS: C Reactive Protein* 2.4 mg/dL (0.5-1.0)
[2022-07-12 21:48] LABS: Appearance Urine Cloudy (Clear); Bilirubin Urine Negative (Negative); Blood Urine Negative (Negative); Color Urine Yellow (Yellow); Glucose Urine 1+ (Negative); Ketones Urine Trace (Negative); Leukocyte Esterase Urine Negative (Negative); Nitrite Urine Negative (Negative); Protein Urine Negative (Negative); Specific Gravity Urine >= 1.030 (1.000-1.030); Urobilinogen Urine 0.2 (0.2-1.0)
[2022-07-12 22:00] LABS: Bacteria Urine Few; RBC Urine 0-2 (0-2); Squamous Epithelial Cell Urine Few (None-Few); WBC Urine 0-2 (0-5)
[2022-07-12 22:00] LABS: Amphetamine Screen Urine Negative (Negative); Barbiturate Screen Urine Negative (Negative); Benzodiazepines Screen Urine Negative (Negative); Cannabinoid Screen Urine Negative (Negative); Cocaine Screen Urine Negative (Negative); Methadone Screen Urine Negative (Negative); Methamphetamines Screen Urine Negative (Negative); Opiate Screen Urine Negative (Negative); Oxycodone Screen Urine Negative (Negative); Phencyclidine Screen Urine Negative (Negative); Tricyclic Antidepressant Urine Negative (Negative)
[2022-07-13 00:23] VITALS: BP 123/90; PULSE 79; O2SAT 99
[2022-07-13 00:30] VITALS: BP 107/81; PULSE 80; O2SAT 98
[2022-07-13 00:40] VITALS: BP 112/73; PULSE 80; O2SAT 98
== END 2022-07-12 22:28 | disposition home or self-care (01) ==
PROVIDERS: Family Medicine; Emergency Provider Family Medicine; PCP Family Medicine
DX: R53.1 Weakness (principal); Z3A.19 19 weeks gestation of pregnancy
CPT/HCPCS: 36415; 80048; 80076; 80306; 81001; 81003; 82962; 84484; 85025; 86140; 87086; 87502; 87634; 87635; 93005; 94761; 99283; 99284; J7030

== ENCOUNTER 2022-10-22 11:05 | Outpatient (CLI) | payer MEDICAID, SELFPAY ==
[2022-10-22] VITALS (55 sets, daily range): BP systolic 127–152; BP diastolic 73–95; PULSE 50–104; RESP 16; TEMP 37.2; O2SAT 79–100
[2022-10-22] MEDS: ACETAMINOPHEN 500 MG TABLET 1000 MG PO (12:14)
[2022-10-22 12:24] LABS: Hematocrit 29.9 % (33.0-51.0); Hemoglobin* 8.7 gm/dL (12.0-16.0); Mean Corpuscular HGB Conc 29 gm/dL (32-36); Mean Corpuscular Hemoglobin 20 pg (26-34); Mean Corpuscular Volume 68 fL (80-100); Platelet Count* 236 K/uL (140-440); Red Blood Count 4.38 m/uL (4.00-5.20)
[2022-10-22 12:26] LABS: Slide Review Reflex No
[2022-10-22 12:31] LABS: Alanine Aminotransferase* 13 U/L (4-35); Aspartate Amino Transferase* 18 U/L (12-35); Blood Urea Nitrogen* 8 mg/dL (5-24); Creatinine* 0.3 mg/dL (0.5-1.5); Estimated Glomerular Filt Rate 148 ml/min
--- NOTE | 2022-10-22 13:44 | P.OBO_ITS ---
OB Outpatient HPI History of Present Illness Date Seen: 10/22/22 History of Present Illness: 27 year old at 34 weeks gestation by LMP, [place] 12/03/22, presents with concerns of severely elevated blood pressures at home and persistent and worsening headache. Patient with care at [facility]- due to high risk . She was diagnosed with preeclampsia without severe features at around 31 weeks. Was admitted to the hospital on 10/18/22 due to poorly controlled type 2 diabetes insulin requiring as well as severely elevated blood pressures in the clinic. She had significant proteinuria and at that time diagnosed with preeclampsia w/o severe features. Patient states that she has been having twice weekly visits and was seen yesterday in the hospital. She has a history of eclampsia with her second baby. States that she has had on and off headaches this but states that since yesterday has been experiencing a headache that has not gone away after Tylenol, rest and eating. Today was concerned since she had a blood pressure reading at home a systolic in the 170s. States that headache is still present and feels like it has worsened. Patient lives close to our hospital and she drove herself this morning to the hospital for evaluation. Patient also described pain in her upper abdomen. record reviewed by me today. OB problem list: Diabetic type 2, treated with insulin, poorly controlled, noncompliant x2, desires tubal ligation Preeclampsia without severe features diagnosed at 31 weeks by blood pressure and proteinuria History of preeclampsia x2, eclampsia with her 2nd delivery Anemia Lab work reviewed from 10/21/2022: BUN: 10.0, creatinine 0.4, AST: 15, ALT: 8, hemoglobin 8.3, platelets: 242 Labs from July 2022: Hemoglobin A1c 7.7, hepatitis-B surface antigen nonreactive, hemoglobin 9.6, hematocrit 32.3, platelets: 342, HIV nonreactive, rubella immune, treponema antibody nonreactive, hepatitis-C nonreactive, blood type and group O positive, chlamydia gonorrhea negative Baby moving naturally: Yes Bleeding: No Contractions: No Leaking fluid: No Discharge: No Heartburn: No Back pain: Yes Meds Home Medications and Allergies Home Medications Medication Instructions Recorded Confirmed Type insulin NPH isoph U-100 human 100 unit subcut 04/16/22 History unit/mL subcutaneous suspension (Humulin N NPH U-100 Insulin (isophane susp)) insulin regular human 100 unit/mL 07/12/22 History injection solution (Humulin R Regular U-100 Insulin) Allergies Allergy/AdvReac Type Severity Reaction Status Date / Time No Known Drug Allergies Allergy Verified 07/12/22 20:34 [facility] Medical History Diabetes mellitus type 1 History of pre-eclampsia History of delivery Obesity Surgical History History of delivery Social History Smoking Status: Never smoker Do you use any of these nicotine containing products: None How often do you have a drink containing alcohol: never AUDIT-C Alcohol total score: 0 Non-prescribed substance use: denies use service: No History History 3 Elective abortions Para 2 Spontaneous abortions Hx # Term Pregnancies Ectopic pregnancies Hx # Pregnancies Multiple births Number of Living Children 2 OB - H&P: Exam Physical Exam Vital signs: Pulse BP Pulse Ox 93 143/92 H 100 10/22/22 13:37 10/22/22 13:37 10/22/22 13:40 Narrative: VITAL SIGNS: As noted above. GENERAL APPEARANCE: Alert, cooperative female in no acute distress. MOOD & AFFECT: Normal. HEART: Regular rate and rhythm without murmurs. LUNGS: Lungs are clear to auscultation bilaterally. No crackles, wheezes, or rhonchi. ABDOMEN: Gravid, nontender : No abnormal discharge EXTREMITIES: Bilateral pitting edema +1, nontender NST: 140bpm/positive accelerations/negative deceleration/moderate variability/no uterine contractions Lab work completed today: Hemoglobin 8.7, hematocrit 29.9, platelets [id number]. Creatinine 0.3, AST: 18, ALT:13. Labs Labs Laboratory Tests 10/22/22 10/22/22 Range/Units 12:00 12:00 WBC 8.60 (4.50-11.00) K/uL RBC 4.38 (4.00-5.20) m/uL Hgb 8.7 L (12.0-16.0) gm/dL Hct 29.9 L (33.0-51.0) % MCV 68 L (80-100) fL MCH 20 L (26-34) pg MCHC 29 L (32-36) gm/dL Plt Count 236 (140-440) K/uL BUN 8 (5-24) mg/dL Creatinine 0.3 L (0.5-1.5) mg/dL Estimated GFR 148 ml/min AST 18 (12-35) U/L ALT 13 (4-35) U/L Assessment and Plan Assessment and plan (1) Severe preeclampsia: Status: Acute Plan 27 y/o with IUP at 34 0/7 weeks who presents with a previous diagnosis of preeclampsia w/o severe features, uncontrolled type 2 diabetes on insulin. Patient with severely elevated blood pressures at home and with persistent and worsening headache. Blood pressures have been elevated not on severity range. B lood sugar level 87. She has been NPO since last night. She did not feel like eating due to headache. IV fluids started, Tylenol given and headache persists and patient describes it as worsening. Labs repeated today stable. Due to RETENTION MANAGER irritability symptoms that are persistent my concern is that this is industrial relations representative of severe features. Patient with history of eclampsia on her last . Recommended starting IV Magnesium Sulfate infusion for seizure prophylaxis, transfer to higher level of care (NICU, blood bank, [facility] ect...). Due to uncontrolled diabetes and 34 weeks would defer corticosteroid decision at this moment. Case discussed with Dr. Vides [facility] at [facility] who accepted the transfer, IV Magnesium sulfate to be stopped during transfer.
[2022-10-22] MEDS: LACTATED RINGERS 1000 ML 1,000 ML 75 ML IV (13:50)
[2022-10-22 14:45] LABS: INR 1.02 (0.91-1.10)
[2022-10-22] MEDS: 5 % DEXTROSE/0.45% SOD CHLOR 1,000 ML 125 ML IV (14:51)
[2022-10-22 15:01] LABS: Fibrinogen* 419 mg/dL (200-450)
--- NOTE | 2022-10-22 16:19 | PC.OBNST ---
NST Note NST Note Start: 10/22/22 11:20 Freq: ONCE Status: Active Protocol: Document 10/22/22 16:18 MARCOS (Rec: 10/22/22 16:19 [email or web address] [id number]) NST Note 3 Para (# of births) 2 EDC 12/03/22 Gestational Age In Weeks & Days 34 Weeks & 0 Days High Risk Factors High Blood Pressure - Gestational,Diabetes - Preexisting Type II Insulin Patient Presented with Complaint(s) of Headache Other Complaints High Blood Pressure at home Reactive Yes Appropriate for Gestational Age Yes RN Kandis Pearce RN Date 10/22/22 Reactive Yes Appropriate for Gestational Age Yes ELVIS Goldstein RN Date 10/22/22 OB NST charge Yes Complete NST Note via Write Note Yes The provider's electronic signature indicates the NST is reactive/appropriate for gestational age. *Note to provider: If an addendum is required, open the patient's chart and click on the note under the Nurse/Allied Health tab.
== END 2022-10-22 15:15 | disposition other institution (70) ==
LOC: OB OUT 11:06 → OB 11:08
PROVIDERS: PCP Family Medicine; Visit Provider Obstetrics & Gynecology
DX: O24.113 Pre-existing type 2 diabetes mellitus, in pregnancy, third trimester (principal); Z3A.34 34 weeks gestation of pregnancy
CPT/HCPCS: 36415; 59025; 82565; 84450; 84460; 84520; 85027; 85384; 85610; 99213; A9270; J3475; J7120; S5010

== ENCOUNTER 2022-10-22 15:02 | Outpatient (CLI) | payer MEDICAID, SELFPAY | END 2022-10-22 15:03 | disposition home or self-care (01) | LOC: AMB 10-24 10:28 | PROVIDERS: PCP Family Medicine; Visit Provider Family Medicine | DX: O14.90 Unspecified pre-eclampsia, unspecified trimester (principal) | CPT/HCPCS: A0425; A0426 ==

== ENCOUNTER 2022-11-02 11:09 | Emergency (ER) | payer MEDICAID, SELFPAY ==
[2022-11-02 11:24] VITALS: BP 130/85; PULSE 77; RESP 18; TEMP 36.1; O2SAT 100; BMI 5257.7
--- NOTE | 2022-11-02 12:03 | ED_ITS ---
HPI - Abdominal Pain General Time Seen by Provider: 12:03 Date Seen: 11/02/22 Chief Complaint: Post OB/Post- Complication Stated Complaint: pain post Time Seen by Provider: 11/02/22 11:13 Source: patient and RN notes reviewed Mode of arrival: ambulatory Limitations: no limitations History of Present Illness HPI narrative: Patient is a 27-year-old female coming in with increasing right-sided abdominal pain after a on 10/21. She had preeclampsia, had done after being transferred from here to [facility]. She states her baby is still in the NICU due to prematurity. She has not noted any fevers. She has a bruised area on her right upper abdominal wall that she states she can feel and is painful. She is not sure she had a shot there. Along her lower abdominal pannus, she states she can feel a lump in it corresponds to the right outer aspect of the . She states it is painful. Lochia is still present but has minimize. Again no fevers. No diarrhea, no urinary changes. She is eating fine, no nausea or vomiting. She is diabetic. MD elicited complaint: abdominal pain Related Data Patient : No Home Medications Medication Instructions Recorded Confirmed insulin NPH isoph U-100 human 100 unit subcut 04/16/22 unit/mL subcutaneous suspension (Humulin N NPH U-100 Insulin (isophane susp)) insulin regular human 100 unit/mL 07/12/22 injection solution (Humulin R Regular U-100 Insulin) Allergies Allergy/AdvReac Type Severity Reaction Status Date / Time No Known Drug Allergies Allergy Verified 07/12/22 20:34 Review of Systems Status of ROS Reports: 10 or more systems reviewed and unremarkable except as noted in History and below [facility] Medical History Diabetes mellitus type 1 History of pre-eclampsia History of delivery Obesity Surgical History History of delivery Social History Smoking Status: Never smoker Do you use any of these nicotine containing products: None How often do you have a drink containing alcohol: never AUDIT-C Alcohol total score: 0 Non-prescribed substance use: denies use service: No Exam Const: Vital Signs, click to edit/add: Vital Signs - 24 hr 11/02/22 11:24 Temperature 96.9 F L Pulse Rate [Right Pulse Oximeter] 77 Respiratory Rate 18 Blood Pressure [Ri ght Upper Arm] 130/85 Pulse Oximetry 100 Oxygen Delivery Me thod Room Air Documenting provider has reviewed patient's vital signs: yes Common normals: no apparent distress, oriented x3, no limitations, healthy appearing and alert General appearance: cooperative, comfortable, well kempt and well developed HENMT: Common normals: normocephalic, head/scalp atraumatic and hearing grossly normal bilaterally Head and scalp: normocephalic and atraumatic Eye: Common normals: PERRL, EOMs intact bilaterally, conjunctivae normal and no scleral icterus Conjunctiva: conjunctiva(e) normal Pupil: PERRL Neck & C-Spine: Common normals: full ROM, no lymphadenopathy and supple Resp: Common normals: normal respiratory effort, no retractions, no use of accessory muscles and clear to auscultation bilaterally Auscultation: clear to auscultation bilaterally Cardio: Common normals: regular rate, regular rhythm, S1 normal heart sound, S2 normal heart sound, no gallops, no clicks and no murmurs Rate: regular rate Rhythm: regular rhythm Heart sounds: S1 normal and S2 normal GI: Other: Patient has ecchymotic area right upper quadrant abdominal wall near the center of that quadrant. You can feel little induration within the tissues of the abdominal wall but no erythema, no fluctuance. She is tender in this bruised area. It is about maybe a 3 cm diameter. It almost looks like there is maybe a central little punctate lesion like this was a shot. She also has a significant lower abdominal wall pannus. Her scar is very well healed but on the right lateral aspect to the scar there is induration and firmness with the area being tender. This certainly could be a seroma here, possible early abscess. The induration does extend into the pannus more medially above the C- section scar. She is darker complected in it is difficult to tell if there is any mild erythematous change. I certainly do not feel any fluctuance. Neuro: Common normals: oriented x3 Sensorium/orientation: alert Psych: Appearance: well kempt Course Course Hospital Course: Will obtain a CT looking at the pelvis in the abdominal wall. I most suspect complication of seroma but need to rule out infectious etiology including abscess. Will place an IV as we will do this with IV contrast, will be obtaining full complement of labs. Reevaluation(s) Reevaluation #1: Have reviewed with patient that the radiologist is not seeing anything concerning. She is relieved that she does not have to go back in to surgery. She thought maybe there were going to have to take her back to the OR. The radiologist did not actually, aunt on the images about 120-121 through 127 where I can see a little either hematoma or consolidation of the soft tissue edema from her surgery along the right side of the scar. I wonder if this may be a little hematoma that happened. In any event with normal white count, no significant skin changes that would signify knee developing cellulitis, normal C-reactive protein, patient I have discussed further treatment which will be conservative. Were going to hold on any antibiotics at this time. I have asked that she have the wound rechecked on Friday or Friday either with her surgeon or in clinic. Time: 14:42 Vital Signs Vital signs: Initial Vital Signs Temperature 96.9 F L 11/02/22 11:24 Temperature Source Temporal Artery Scan 11/02/22 11:24 Pulse Rate 77 11/02/22 11:24 Respiratory Rate 18 11/02/22 11:24 Blood Pressure 130/85 11/02/22 11:24 Blood Pressure Mean 100 11/02/22 11:24 Blood Pressure Position Sitting 11/02/22 11:24 Pulse Oximetry 100 11/02/22 11:24 Oxygen Delivery Method Room Air 11/02/22 11:24 Vital Signs Temperature 96.9 F L 11/02/22 11:24 Pulse Rate 77 11/02/22 11:24 Respiratory Rate 18 11/02/22 11:24 Blood Pressure 130/85 11/02/22 11:24 Pulse Oximetry 100 11/02/22 11:24 Oxygen Delivery Method Room Air 11/02/22 11:24 Temperature 96.9 F L 11/02/22 11:24 Pulse Rate 77 11/02/22 11:24 Respiratory Rate 18 11/02/22 11:24 Blood Pressure 130/85 11/02/22 11:24 Pulse Oximetry 100 11/02/22 11:24 Oxygen Delivery Method Room Air 11/02/22 11:24 MDM - Abdominal Pain Lab Data Attestation: I reviewed the patient's lab results. Lab results narrative: Note patient's preoperative hemoglobin prior to transfer was 8.7 Labs: Lab Results 11/02/22 Range/Units 12:30 WBC 7.18 (4.50-11.00) K/uL RBC 3.91 L (4.00-5.20) m/uL Hgb 7.7 L* (12.0-16.0) gm/dL Hct 27.7 L (33.0-51.0) % MCV 71 L (80-100) fL MCH 20 L (26-34) pg MCHC 28 L (32-36) gm/dL RDW Coeff of Liat 21.4 H (11.5-15.5) % Plt Count 373 (140-440) K/uL Neut % (Auto) 61.0 (42.0-72.0) % Lymph % (Auto) 28.6 (20-44) % Tate % (Auto) 6.5 (0.0-11.0) % Eos % (Auto) 1.8 (0.0-7.0) % Baso % (Auto) 0.8 (0.0-3.0) % Neut # (Auto) 4.38 (1.7-7.0) K/uL Lymph # (Auto) 2.05 (0.90-2.90) K/uL Tate # (Auto) 0.50 (0.00-0.90) K/UL Eos # (Auto) 0.13 (0.00-0.50) K/uL Baso # (Auto) 0.06 (0.00-0.30) K/uL Diff Slide Review Acceptable Review (Acceptable) Sodium 138 (135-149) mmol/L Potassium 3.9 (3.6-5.1) mmol/L Chloride 110 (96-114) mmol/L Carbon Dioxide 22 (20-32) mmol/L BUN 12 (5-24) mg/dL Creatinine 0.4 L (0.5-1.5) mg/dL Estimated Creat Clear 314.87 Estimated GFR 138 ml/min Glucose 97 (60-115) mg/dL Lactate 0.6 (0.5-1.9) mmol/L Calcium 8.2 L (8.4-10.6) mg/dL Total Bilirubin 0.6 (0.1-1.5) mg/dL AST 23 (12-35) U/L ALT 18 (4-35) U/L Alkaline Phosphatase 141 (40-150) U/L C-Reactive Protein 0.8 (0.5-1.0) mg/dL Total Protein 7.3 (6.0-8.3) g/dL Albumin 3.8 (3.3-5.0) g/dL Imaging Data CT scan - abdomen: Attestation: I have reviewed the pertinent imaging results. Radiologist's impression: Patient: BEATRIZ APARICIO Facility:?[facility] Patient ID:?[id number] Site Patient ID:?[id number]. Site :?[id number] Study:?CT Abdomen/Pelvis W/ISOVUE 370 98CC-11/02/2022 1:44:08 PM Ordering Physician:Sebastian King Final Report: Indication: Increasing right abdominal wall pain after 10/21 Technique: Contrast CT abdomen and pelvis Comparison: No comparison Findings: Heart is mildly enlarged. No pericardial effusion. The lung bases are clear. Liver pancreas spleen gallbladder unremarkable adrenal glands unremarkable kidneys unremarkable normal appendix. Abundant stool in the colon the bowel is unremarkable there is no obstruction. uterus. Mild fluid in the pelvis with edematous changes. Heterogen eity of the lower anterior abdominal wall most likely postsurgical. There is subcutaneous edema in the lower abdominal wall and skin thickening. The urinary bladder is decompressed and unremarkable. No suspicious bony lesions. Impression: 1. uterus. Small amount of pelvic free fluid edematous changes in the lower pelvis. Postoperative changes of the lower abdominal wall. Subcutaneous e guanaco. 2. Normal appendix. Please note that all CT scans at this facility use dose modulation, iterative reconstruction, and/or weight-based dosing when appropriate to reduce radiation dose to as low as reasonably achievable. Dictated by Maddy Ye MD @ 11/02/2022 2:27:51 PM (Electronic Signature) Discharge Plan Discharge Clinical Impression: Status post Condition: Stable Additional Instructions: Need to follow up in clinic on Friday or Friday to have the wound rechecked. Can continue with ice packs to the abdominal wall. If this is a developing fluid collection called a seroma or if there was a small bleed which is called hematoma, these are stable and just require ongoing observation at this time. You can use Tylenol 1000 mg 3 times a day baseline for pain and can supplement with ibuprofen per bottle directions as needed for extra pain management. Should you develop increasing pain, rapidly expanding swelling in the abdominal wall that you feel, develops fever, do need to be re-evaluated. Activity Detail: Follow-up post recommendations as per your surgeon. Prescriptions: No Action Humulin N NPH U-100 Insulin 100 unit/mL suspension SUBCUT Patient Comments: INJECT 12 UNITS SUBCUTANEOUS BEFORE BEDTIME Humulin R Regular U-100 Insuln 100 unit/mL solution Patient Comments: INJECT 14 UNITS UNDER THE SKIN 20-30 MINUTES BEFORE BREAKFAST AND 19 UNITS 20-30 MINUTES BEFORE EVENING MEAL. Follow Up/Referrals: Traci Rubi DO [Primary Care Provider] - Stand Alone Forms: [employer] Info Instructions
--- NOTE | 2022-11-02 12:09 | CRLHL7_ITS ---
For Patients: As a result of the Century Cures Act, medical imaging exams and procedure reports are released immediately into your electronic medical record. You may view this report before your referring provider. If you have questions, please contact your health care provider. Indication: Increasing right abdominal wall pain after 10/21 Technique: Contrast CT abdomen and pelvis Comparison: No comparison Findings: Heart is mildly enlarged. No pericardial effusion. The lung bases are clear. Liver pancreas spleen gallbladder unremarkable adrenal glands unremarkable kidneys unremarkable normal appendix. Abundant stool in the colon the bowel is unremarkable there is no obstruction. uterus. Mild fluid in the pelvis with edematous changes. Heterogeneity of the lower anterior abdominal wall most likely postsurgical. There is subcutaneous edema in the lower abdominal wall and skin thickening. The urinary bladder is decompressed and unremarkable. No suspicious bony lesions. Impression: 1. uterus. Small amount of pelvic free fluid edematous changes in the lower pelvis. Postoperative changes of the lower abdominal wall. Subcutaneous edema. 2. Normal appendix. Please note that all CT scans at this facility use dose modulation, iterative reconstruction, and/or weight-based dosing when appropriate to reduce radiation dose to as low as reasonably achievable. Dictated by Maddy Ye MD @ 11/02/2022 2:27:51 PM (Electronically Signed)
[2022-11-02 12:35] LABS: Lactate* 0.6 mmol/L (0.5-1.9)
[2022-11-02 12:36] LABS: Basophils Absolute Auto 0.06 K/uL (0.00-0.30); Basophils Percent Auto 0.8 % (0.0-3.0); Eosinophils Absolute Auto 0.13 K/uL (0.00-0.50); Eosinophils Percent Auto 1.8 % (0.0-7.0); Hematocrit 27.7 % (33.0-51.0); Immature Granulocytes Abs Auto 0.09 K/uL (0.00-0.30); Immature Granulocytes Pct Auto 1.3 %; Lymphocytes Absolute Auto 2.05 K/uL (0.90-2.90); Lymphocytes Percent Auto 28.6 % (20-44); Mean Corpuscular HGB Conc 28 gm/dL (32-36); Mean Corpuscular Hemoglobin 20 pg (26-34); Mean Corpuscular Volume 71 fL (80-100); Monocytes Percent Auto 6.5 % (0.0-11.0); Neutrophils Absolute Auto 4.38 K/uL (1.7-7.0); Platelet Count* 373 K/uL (140-440); RDW Coefficient of Variation % 21.4 % (11.5-15.5); Red Blood Count 3.91 m/uL (4.00-5.20); White Blood Count* 7.18 K/uL (4.50-11.00)
[2022-11-02 12:48] LABS: Hemoglobin* 7.7 gm/dL (12.0-16.0); Slide Review Reflex Yes
[2022-11-02 12:50] LABS: Albumin* 3.8 g/dL (3.3-5.0); Chloride* 110 mmol/L (96-114)
--- NOTE | 2022-11-02 12:50 | ED.NURSE ---
Critical received from lab: hgb 7.7, patient reports known anemia
[2022-11-02 12:51] LABS: Potassium* 3.9 mmol/L (3.6-5.1); Sodium* 138 mmol/L (135-149)
[2022-11-02 12:53] LABS: Creatinine* 0.4 mg/dL (0.5-1.5); Estimated Glomerular Filt Rate 138 ml/min
[2022-11-02 12:54] LABS: Alanine Aminotransferase* 18 U/L (4-35); Alkaline Phosphatase* 141 U/L (40-150); Aspartate Amino Transferase* 23 U/L (12-35); Bilirubin Total* 0.6 mg/dL (0.1-1.5); Blood Urea Nitrogen* 12 mg/dL (5-24); Calcium* 8.2 mg/dL (8.4-10.6); Carbon Dioxide* 22 mmol/L (20-32); Glucose* 97 mg/dL (60-115); Total Protein* 7.3 g/dL (6.0-8.3)
[2022-11-02 12:57] LABS: C Reactive Protein* 0.8 mg/dL (0.5-1.0); Slide Review Acceptable Review (Acceptable)
== END 2022-11-02 15:00 | disposition home or self-care (01) ==
PROVIDERS: Emergency Provider Family Medicine; PCP Family Medicine
DX: R10.11 Right upper quadrant pain (principal); O82 Encounter for cesarean delivery without indication
CPT/HCPCS: 36415; 74177; 80053; 83605; 85025; 86140; 99284; Q9967